=== PATIENT | female | born 1940 | race Caucasian/White ===

== ENCOUNTER → 2018-07-10 12:53 | Outpatient (CLI) | payer OTHER, SELFPAY ==
--- NOTE | 2018-07-10 13:23 | VDLE_ITS ---
Reason For Study: LEG PAIN AND SWELLING RIGHT LEFT GSV is normal. CFV is compressible, spontaneous, phasic, CFV is compressible, spontaneous, phasic, competent, and demonstrates normal competent and demonstrates normal augmentation. augmentation. FV is compressible, spontaneous, phasic, competent and demonstrates normal augmentation. POP V is compressible, spontaneous, phasic, competent and demonstrates normal augmentation. T/P Trunk is compressible. PTV is compressible. RT PerV is compressible. Procedure Exam performed in department. A preliminary report was called and/or faxed to Dr. Sriram Rutherford. Interpretation Summary Deep veins of the right lower extremity are patent and compressible segmentally. There is no evidence of right lower extremity deep vein thrombosis. Valvular competence appears intact within the proximal deep venous system on the right . The right greater saphenous vein appears patent and compressible segmentally. Ordering Physician: Ap Rutherford Referring Physician: Ap Rutherford Performed By: Denice Cisneros RVT
--- OUTSIDE RECORDS SUMMARY | 2018-08-26 08:12 | XMS RPT_ITS ---
:1940 Author Organization OH[facility] Care Team Providers Name Role Phone Ap Rutherford Attending Unavailable Rutherford, Ap Referring Unavailable Rutherford, Ap Primary Care Unavailable Rutherford, Ap Attending Unavailable Rutherford, Ap Primary Care Unavailable Rutherford, Ap Attending Unavailable Rutherford, Ap Referring Unavailable Rutherford, Ap Primary Care Unavailable PROBLEMS PROBLEMS DATE TYPE CONDITION / CODE ATTENDING STATUS SOURCE 07/29/2018 Unknown M25.561 - Pain in Rutherford, Ap Active [place] right knee / [facility] M25.561(ICD-10) Hospital Repository 07/16/2018 Unknown M25.40 - Rutherford, Ap Active [place] [facility] unspecified joint Hospital / M25.40(ICD-10) Repository PROCEDURES PROCEDURES No Procedure Records FoundRESULTS RESULTS KNEE 3 VIEWS Observed: 07/29/2018 Status: F Source: [place] 3:22 PM [facility]LY [facility], [facility]–1983 HOSPITAL REPOSITORY [facility] Imaging Services [address] [place] [address] Knee 3 Views MR#: [id number] Acct: [id number] Name: LIBAN TRACEY Rep #: [id number] : 1940 F 78 From: Javid Jordan DO PCP: Ap Rutherford MD Status: REG CLI Study: Knee 3 Views Date of Exam: 07/29/18 Exam# [id number] Ordering Dr: Ap Rutherford MD STUDY: X-RAY - RIGHT KNEE REASON FOR EXAM: Female, 78 years old. Right knee pain, chronic TECHNIQUE: 3 view(s) of the knee. COMPARISON: None. FINDINGS: Normal visualized distal femur. Normal visualized proximal tibia and fibula. Normal proximal tibiofibular articulation. 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 There is mild degenerative arthrosis of the lateral femorotibial compartment. There is mild degenerative arthrosis of the patellofemoral articulation. Significant medial compartment joint space loss The soft tissue structures are unremarkable. RAD/Knee 3 Views IMPRESSION: Degenerative changes as above Electronically Signed: Javid Jordan DO at 12:37 EST Tel , Service support , CC: Ap Rutherford MD Size Mixer: Signed CBC W/DIFF, AUTOMATED Collected: 07/16/2018 Status: F Source: [place] 4:02 PM [facility] REPOSITORY TYPE CODE TESTS RESULT OUT OF RANGE REFERENCE UNITS LAB L100.1000 4.4-11.0 K/mm3 Normal WBC 7.5 LAB L100.1200 4.2-5.4 M/mm3 Normal RBC 4.32 LAB L100.1300 12.0-15.0 g/dl Normal HGB 13.0 LAB L100.1400 37-47 % Normal HCT 40.5 LAB L100.1500 81-99 fL Normal MCV 93.8 LAB L100.1600 27.0-32.0 pg Normal MCH 30.1 LAB L100.1700 32-36 g/gl Normal MCHC 32.1 LAB L100.1810 11.6-14.6 % Normal RDW CV 13.7 LAB L100.1820 35.1-43.9 fl High RDW SD 47.3 LAB L100.1900 150-450 K/mm3 Normal PLT 258 LAB L100.2000 6.2-12.0 fl Normal MPV 10.1 LAB L100.2100 47-70 % Low NEUT% 44.0 LAB L100.2200 19-41 % High LY% 43.3 LAB L100.2300 0-10 % Normal MONO% 8.1 LAB L100.2400 0-5 % Normal EO% 4.1 LAB L100.2500 0-1 % Normal BASO% 0.5 LAB L100.2550 0.0-0.9 % Normal IM GRAN % 0.000 Result Comment: IG% - Immature Granulocytes (promyelocytes, myelocytes and metamyelocytes) > 1% indicates that a LEFT SHIFT is Present. LAB L100.2620 2.0-7.7 X10 3/uL Normal Absolute Neut 3.3 LAB L100.2720 0.83-4.51 X10 3/ul Normal Absolute Lymph 3.25 Performed By: #### L100.0100 #### [facility] [address] [place], [address] COMPREHENSIVE METABOLIC Collected: 07/16/2018 Status: F Source: [facility] 4:02 PM [facility] REPOSITORY TYPE CODE TESTS RESULT OUT OF RANGE REFERENCE UNITS LAB L501.0100 74-106 mg/dL Normal GLU 88 Result Comment: Please note revised GLUCOSE reference range effective 2017. LAB L501.1000 7-18 mg/dL High BUN 22 LAB L501.1100 0.55-1.02 mg/dL Normal CREAT,SERUM 0.86 Result Comment: The validity of the calculated GFR AND GFRAA in patients over 70 years has not been determined. Clinical correlation is essential. LAB L501.1110 >60 mL/min Normal EST GFR 68 Result Comment: Non- GFR Calc LAB L501.1115 >60 mL/min Normal EST GFR - AA 82 Result Comment: GFR Calc LAB L501.1300 10-20 RATIO High BUN/CRE 25.7 LAB L501.1500 6.4-8.2 g/dL T Normal PROT 7.6 LAB L501.1800 3.2-5.0 g/dL Normal ALB 3.9 LAB L501.1950 2.2-4.2 g/dL Normal GLOB 3.7 LAB L501.2000 0.9-2.4 RATIO Normal A/G 1.1 LAB L501.2200 8.5-10.1 mg/dL CA Normal 8.6 LAB L501.4100 15-37 U/L Normal AST 23 LAB L501.4305 45-117 U/L Normal ALK P 96 LAB L501.4405 13-56 U/L Normal ALT 35 LAB L501.4600 0.20-1.00 mg/dL T Normal BILI 0.30 LAB L501.5300 136-145 mmol/L NA Normal 144 LAB L501.5600 3.5-5.1 mmol/L K Normal 4.1 LAB L501.5900 98-107 mmol/L CL Normal 107 LAB L501.6100 21.0-32.0 mmol/L Normal CO2 28.0 LAB L501.6200 5-15 Normal GAP 9 Performed By: #### L500.4050, L501.6710, L501.9520, L503.6550, L505.7010 #### [facility] [address] [facility]. [place], [place], [id number] CRP Collected: 07/16/2018 Status: F Source: [place] 4:02 PM [facility] REPOSITORY TYPE CODE TESTS RESULT OUT OF RANGE REFERENCE UNITS LAB L501.6710 0.0-3.0 mg/L Normal < 2.90 C-REACTIVE PROT Result Comment: C-Reactive Protein (CRP) provides useful information for the diagnosis, therapy and monitoring of inflammatory processes and associated diseases. For the evaluation of Relative Risk for Cardiovascular Disease, a High Sensitivity CRP (HSCRP) should be ordered. Performed By: #### L500.4050, L501.6710, L501.9520, L503.6550, L505.7010 #### [facility] [address] [facility] [place], [place], [id number] THYROID STIM HORMONE Collected: 07/16/2018 Status: F Source: [place] (TSH) 4:02 PM [facility] REPOSITORY TYPE CODE TESTS RESULT OUT OF RANGE REFERENCE UNITS LAB L501.9520 0.358-3.74 uIU/mL High TSH 4.39 Performed By: #### L500.4050, L501.6710, L501.9520, L503.6550, L505.7010 #### [facility] [address] [facility] [place], [address] FERRITIN Collected: 07/16/2018 Status: F Source: [place] 4:02 PM [facility] REPOSITORY TYPE CODE TESTS RESULT OUT OF RANGE REFERENCE UNITS LAB L503.6550 8-252 ng/mL Normal FERRITIN 80 Performed By: #### L500.4050, L501.6710, L501.9520, L503.6550, L505.7010 #### [facility] [address] [place], [address] RHEUMATOID FACTOR Collected: 07/16/2018 Status: F Source: [place] 4:02 PM [facility] REPOSITORY TYPE CODE TESTS RESULT OUT OF RANGE REFERENCE UNITS LAB L505.7010 <15 IU/mL Normal RHEUMATOID FAC < 10.0 Performed By: #### L500.4050, L501.6710, L501.9520, L503.6550, L505.7010 #### [facility] [address] [place], [address] ANTINUCLEAR ANTIBODIES Collected: 07/16/2018 Status: F Source: [place] DIRECT 4:02 PM [facility] REPOSITORY TYPE CODE TESTS RESULT OUT OF RANGE REFERENCE UNITS LAB L3100.5475 Negative Normal Negative YEIMI-DIRECT Result Comment: Performed at: - [facility] [address] [id number] Educational Adviser: Rodri Lazo PhD, Phone: [phone] Performed By: #### L3100.5475 #### [facility] (refer to report for specific site) refer to report for address and phone number VENOUS DUPLEX LOWER Observed: 07/11/2018 Status: F Source: [place] EXTREMITY 1:47 PM [facility] REPOSITORY [facility] Cardiovascular Services [address] [place] [address] Venous Duplex US, Unilateral 07/10/18 1325 MR#: [id number] Acct: [id number] Name: LIBAN TRACEY Rep #: [id number] : 1940 78 From: Rick Lara MD Attending Dr: Ap Rutherford MD Status: REG CLI Ordering Dr: Ap Rutherford MD Date: 07/10/18 Location: [facility] Sex: F C Admitted: Reason For Study: LEG PAIN AND SWELLING RIGHT LEFT GSV is normal. CFV is compressible, spontaneous, phasic, CFV is compressible, spontaneous, phasic, competent, and demonstrates normal competent and demonstrates normal augmentation. augmentation. FV is compressible, spontaneous, phasic, competent and demonstrates normal augmentation. POP V is compressible, spontaneous, phasic, competent and demonstrates normal augmentation. T/P Trunk is compressible. PTV is compressible. RT PerV is compressible. Procedure Exam performed in department. A preliminary report was called and/or faxed to Dr. Sriram Rutherford. Interpretation Summary Deep veins of the right lower extremity are patent and compressible segmentally. There is no evidence of right lower extremity deep vein thrombosis. Valvular competence appears intact within the proximal deep venous system on the right . The right greater saphenous vein appears patent and compressible segmentally. Ordering Physician: Ap Rutherford Referring Physician: Ap Rutherford Performed By: Denice Cisneros RVT 07/11/18 1347 Date Rick Lara MD CC: Ap Rutehrford MD Date Dictated: 07/10/18 1325 Date Transcribed: 07/11/18 134 Size Mixer: Signed ALLERGIES ALLERGIES No Allergies Records FoundENCOUNTERS ENCOUNTERS ADMIT/DISCHARGE ACCOUNT ADMITTING ENCOUNTER LOCATION SOURCE NUMBER CLASS 07/29/2018 [id number] [facility] [address] [facility] ing:MTRAD Repository 07/16/[id number] ing:MFPLAB Repository 07/10/2018 [id number] Ambulatory [place] [address] [facility] ing:CVS Repository PAYERS PAYERS ENCOUNTER GUARANTOR PAYER SUBSCRIBER SOURCE 07/29/2018 DIVINA Pabon Primary LIBAN Mendoza [id number] Insurance:ANTHEM DOUGLASDOB: Community [employer] [id number]AP[place] Number: Repository [id number]: 330 [id number] [phone] (HP) Date:[id number] [address], [place] [address]ME: 07/29/2018 Secondary NOT GIVENUNK [place] Insurance:SELF PAY [facility] Number: Effective Repository Date:2018-07-29 07/16/2018 DIVINA Pabon Primary LIBAN Mendoza [id number] Insurance:HEALTH PLAN DOUGLASDOB: [id number] Number: Repository [id number]: 330 [id number] [phone] () Date: [facility], [place] [address]LQ: 07/16/2018 Secondary NOT GIVENUNK [place] Insurance:SELF PAY [facility] Number: Effective Repository Date:2018-07-16 07/10/2018 DIVINA Pabon Primary LIBAN Mendoza [id number] Insurance:HEALTH PLAN DOUGLASDOB: [id number] Number: Repository [id number]: 330 [id number] [phone] () Date: [place], [place] [address]LW: 07/10/2018 Secondary NOT GIVENUNK [place] Insurance:SELF PAY [facility] Number: Effective Repository Date:2018-07-10
== END ==
PROVIDERS: Family Provider Family Medicine; PCP Family Medicine; Referring Provider Family Medicine; Visit Provider Family Medicine
DX: M79.604 Pain in right leg (principal)
CPT/HCPCS: 93971

== ENCOUNTER → 2018-07-16 16:00 | Outpatient (CLI) | payer OTHER, SELFPAY ==
[2018-07-16 17:28] LABS: Absolute Lymphocyte Count 3.25 X10^3/ul (0.83-4.51); Absolute Neutrophil Count 3.3 X10^3/uL (2.0-7.7); Basophil# 0.04 X10^3/uL; Basophil% 0.5 % (0-1); Eosinophil# 0.31 X10^3/uL; Eosinophils% 4.1 % (0-5); Hematocrit 40.5 % (37-47); Lymphocyte # 3.25 X10^3/ul (4.0); Lymphocyte % 43.3 % (19-41); Mean Corp Hgb Conc 32.1 g/gl (32-36); Mean Corpuscular Hgb 30.1 pg (27.0-32.0); Mean Corpuscular Volume 93.8 fL (81-99); Mean Platelet Vol. 10.1 fl (6.2-12.0); Monocyte# 0.61 X10^3/uL; Monocyte% 8.1 % (0-10); Neutrophil # 3.29 X10^3/uL (2.7-7.7); Platelet Count 258 K/mm3 (150-450); RBC Distribution Width CV 13.7 % (11.6-14.6); RBC Distribution Width SD 47.3 fl (35.1-43.9); Red Blood Count 4.32 M/mm3 (4.2-5.4); White Blood Count 7.5 K/mm3 (4.4-11.0)
[2018-07-16 17:31] LABS: POSITIVE COUNT NO; POSITIVE DIFFERENTIAL NO; POSITIVE MORPHOLOGY NO
[2018-07-16 17:54] LABS: ALB/GLOB Ratio 1.1 RATIO (0.9-2.4); AST(SGOT) 23 U/L (15-37); Alanine Aminotransfer ALT/SGPT 35 U/L (13-56); Albumin, Serum 3.9 g/dL (3.2-5.0); Alkaline Phosphatase 96 U/L (45-117); Anion Gap 9 (5-15); BUN 22 mg/dL (7-18); BUN/Creat Ratio 25.7 RATIO (10-20); CRP < 2.90 mg/L (0.0-3.0); Calcium,Total 8.6 mg/dL (8.5-10.1); Chloride 107 mmol/L (98-107); Creatinine, Serum 0.86 mg/dL (0.55-1.02); EST Glomerular Filtration Rate 68 mL/min (>60); Est Glom Filt Rate - Afr Amer 82 mL/min (>60); Ferritin 80 ng/mL (8-252); Globulin 3.7 g/dL (2.2-4.2); Glucose 88 mg/dL (74-106); Potassium 4.1 mmol/L (3.5-5.1); Protein, Total 7.6 g/dL (6.4-8.2); Rheumatoid Factor < 10.0 IU/mL (<15); Sodium Level 144 mmol/L (136-145); Thyroid Stim Hormone (TSH) 4.39 uIU/mL (0.358-3.74)
[2018-07-20 12:38] LABS: ANTINUCLEAR ANTIBODIES DIRECT Negative (Negative)
== END ==
PROVIDERS: Family Provider Family Medicine; PCP Family Medicine; Visit Provider Family Medicine
DX: M25.40 Effusion, unspecified joint (principal)
CPT/HCPCS: 36415; 80053; 82728; 84443; 85025; 86038; 86140; 86431

== ENCOUNTER → 2018-07-29 15:17 | Outpatient (CLI) | payer MEDICARE, SELFPAY ==
--- NOTE | 2018-07-29 15:25 | RAD_ITS ---
STUDY: X-RAY - RIGHT KNEE REASON FOR EXAM: Female, 78 years old. Right knee pain, chronic TECHNIQUE: 3 view(s) of the knee. COMPARISON: None. FINDINGS: Normal visualized distal femur. Normal visualized proximal tibia and fibula. Normal proximal tibiofibular articulation. 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 There is mild degenerative arthrosis of the lateral femorotibial compartment. There is mild degenerative arthrosis of the patellofemoral articulation. Significant medial compartment joint space loss The soft tissue structures are unremarkable. RAD/Knee 3 Views IMPRESSION: Degenerative changes as above Electronically Signed: Javid Jordan DO at 12:37 EST Tel , Service support ,
== END ==
PROVIDERS: Family Provider Family Medicine; PCP Family Medicine; Referring Provider Family Medicine; Visit Provider Family Medicine
DX: M25.561 Pain in right knee (principal)
CPT/HCPCS: 73562

== ENCOUNTER → 2020-12-14 12:50 | Outpatient (CLI) | payer MEDICARE, SELFPAY ==
[2020-12-14 13:25] LABS: CREATININE FINGERSTICK 0.8 mg/dL (0.55-1.02); EGFR FINGERSTICK > 60.0000 mL/min (>60)
--- NOTE | 2020-12-14 13:25 | CT_ITS ---
STUDY: CT BRAIN WITH AND WITHOUT CONTRAST REASON FOR EXAM: Female, 80 years old. Mental status change RADIATION DOSAGE (If Supplied By Facility): CTDIvol = ( 44.99 ) mGy, DLP = ( 1479.73 ) mGycm TECHNIQUE: Transaxial CT imaging of the brain was performed pre and post contrast administration. The examination was performed with intravenous administration of 50ML OF ISOVUE 370. Individualized dose optimization techniques were used for this CT. COMPARISON: None. FINDINGS: Normal soft tissue structures. Normal calvarium. Normal size ventricles and extra-axial spaces for the patient''s age. There are areas of decreased attenuation within the white matter tracts of the supratentorial brain, consistent with microvascular disease changes. Normal basal ganglia and thalami. Normal brainstem. Normal cerebellum. There is no intracranial hemorrhage. There are no findings of an acute ischemic infarction. Normal visualized paranasal sinuses. No suspicious enhancing lesion. CT/Brain/Head W/WO Contrast IMPRESSION: Chronic involutional changes of the brain. No acute hemorrhage No suspicious enhancing lesion. Electronically Signed: Rolo Murillo MD at 13:38 EDT , Service support ,
--- NOTE | 2020-12-14 13:33 | ECHOD_ITS ---
Reason For Study: CVA Procedure This was a 2D Doppler, Color Flow transthoracic echocardiogram. Exam performed in department. Left Ventricle Normal LV size. The estimated ejection fraction is 60 %. Unable to assess diastolic dysfunction. No regional wall motion abnormalities noted. Right Ventricle Normal RV size. Normal systolic function. Atria The left atrium is mildly enlarged. Normal right atrium. Bubble contrast study negative for right to left interatrial shunt. No doppler evidence for ASD. Mitral Valve Mitral valve doming/Hockey Sticking. Severe mitral valve stenosis. Mild (1+) mitral valve insufficiency. Tricuspid Valve There is no tricuspid stenosis. Trivial tricuspid valve insufficiency. Pulmonary artery systolic pressure is 45 mmHg. Aortic Valve Trisinus/trileaflet aortic valve. There is no aortic stenosis. No aortic valve insufficiency. Pulmonic Valve There is no pulmonic valvular stenosis. Trivial pulmonic valve insufficiency. Great Vessels Calcified aortic root. Pericardium/Pleural No pericardial effusion. Medication Performed a rapid injection of agitated mix of 9 cc saline and 1cc air to assess for atrial septal defect. MMode/2D Measurements & Calculations LVIDd: 3.7 cm IVSd: 0.84 cm Ao root diam: 2.9 cm LVIDs: 2.4 cm LVPWd: 0.71 cm RVDd: 3.1 cm FS: 34.3 % LAV(MOD-bp): 68.5 ml LA A4 area: 22.0 cm2 LA dimension(2D): 3.6 cm LAV(MOD-bp) Indexed: 38.6 ml/m2 LAV(MOD-sp2): 62.0 ml LAV(MOD-sp4): 69.7 ml RA A4 area: 11.3 cm2 Time Measurements MV dec time: 0.29 sec Doppler Measurements & Calculations MV E max marco a: 184.0 cm/sec Lat Peak E' Marco A: 7.3 cm/sec Med Peak E' Marco A: 5.9 cm/sec MV A max amrco a: 211.4 cm/sec E/E' lat: 25.2 E/E' med: 31.0 MV E/A: 0.87 MV V2 max: 232.3 cm/sec Ao V2 max: 128.3 cm/sec LV V1 max: 112.7 cm/sec MV max P.6 mmHg Ao max P.6 mmHg LV V1 max P.1 mmHg MV V2 mean: 170.9 cm/sec Ao V2 mean: 86.3 cm/sec LV V1 mean P.5 mmHg MV mean P.6 mmHg Ao mean P.3 mmHg LV V1 mean: 75.0 cm/sec MV V2 VTI: 55.9 cm Ao V2 VTI: 26.7 cm LV V1 VTI: 24.3 cm PA V2 max: 80.3 cm/sec TR max marco a: 313.7 cm/sec TR max P.4 mmHg ECHO/Echo Complete Interpretation Summary The estimated ejection fraction is 60 %. Severe mitral valve stenosis. Unable to assess diastolic dysfunction. The left atrium is mildly enlarged. Ordering Physician: Daniella Moise Referring Physician: Ap Rutherford Performed By: Roselia Pagan, RONI, RVT
--- NOTE | 2020-12-14 13:33 | CDU_ITS ---
Reason For Study: CVA Rt. Velocities/BP Lt. Velocities/BP Prox CCA 72.1/12.1 cm/sec. Prox CCA 94.8/16.8 cm/sec. Mid CCA 70.8/13.4 cm/sec. Mid CCA 65.1/13.5 cm/sec. Dist CCA 60.4/13.4 cm/sec. Dist CCA 70.6/13.5 cm/sec. Prox ICA 54.1/14.5 cm/sec. Prox ICA 58.9/17.3 cm/sec. Mid ICA 75.9/22 cm/sec. Mid ICA 52.2/19.2 cm/sec. Dist ICA 79.6/23 cm/sec. Dist ICA 70.2/22 cm/sec. Rt. ICA/CCA = 1.12. Lt. ICA/CCA = 1.08. Prox ECA 53.2/6.9 cm/sec. Prox ECA 94.8/8 cm/sec. Rt. Vert. 41.3/11.6 cm/sec. Lt. Vert. 36.5/13 cm/sec. Right Extracranial There is homogeneous, smooth atherosclerotic plaque noted in the right common carotid artery. There is homogeneous, smooth atherosclerotic plaque noted in the right internal carotid artery. There is intimal thickening but no significant atherosclerotic plaque noted in the right external carotid artery. Antegrade flow is noted in the right vertebral artery. Left Extracranial There is intimal thickening but no significant atherosclerotic plaque noted in the left common carotid artery. There is intimal thickening but no significant atherosclerotic plaque noted in the left internal carotid artery. There is intimal thickening but no significant atherosclerotic plaque noted in the left external carotid artery. Antegrade flow is noted in the left vertebral artery. Procedure Carotid Duplex [id number]. This is a Carotid Duplex examination using B-mode, color flow and specral Doppler. Exam performed in department. VL/Carotid Duplex Ultrasound Interpretation Summary Smooth plaque at the proximal right internal carotid artery with less than 50% stenosis Less than 50% stenosis right external carotid artery Intimal thickening at the proximal left internal carotid artery with less than 50% stenosis Less than 50% stenosis left external carotid artery patent and antegrade vertebrals bilaterally Ordering Physician: Daniella Moise Referring Physician: Ap Rutherford MD Performed By: Aleja Philippe RVT
== END ==
PROVIDERS: PCP Family Medicine; Visit Provider Family Medicine
DX: I63.89 Other cerebral infarction (principal)
CPT/HCPCS: 70470; 93306; 93880; Q9967; A4216

== ENCOUNTER → 2021-12-31 | Outpatient (CLI) | payer MEDICARE, SELFPAY | END | disposition home or self-care (01) | LOC: MFPLAB 15:50 | PROVIDERS: PCP Family Medicine; Visit Provider Nurse Practitioner Family | DX: R31.9 Hematuria, unspecified (principal) | CPT/HCPCS: 87077; 87086; 87088; 87186 ==

== ENCOUNTER 2022-01-24 11:00 | Outpatient (RCR) | payer MEDICARE, SELFPAY ==
--- NOTE | 2021-12-18 12:50 | HP.PTEVAL ---
Patient's Visit Information LIBAN TRACEY is a 81 year old F referred to Physical Therapy by Dr. Seven Parks MD with a diagnosis of L KNEE UNIL OA, STIFFNESS AND EFFUSION. Date of Evaluation: 12/18/21 Physical Therapist: Gloria Cook PT, Cert MDT - Visit Plan Frequency: 2x /Week Duration: 4 Weeks Plan: AQUATIC THERAPY 2X'S A WEEK X 4 WKS FOR L LE ROM, STRETCHING AND STRENGTHENING. - Subjective Work/Leisure: RETIRED. Present symptoms: MEDIAL L KNEE PAIN. IT DOES NOT HURT ON TOP. DENIES NUMBNESS AND TINGLING. SOMETIMES R HIP PAIN AND CENTRAL LBP. Present since: L KNEE PAIN ABOUT 4 YEARS. Pain Scale: WORST 7/10, LEAST 0/10. Currently: 0/10. Commenced as a result of: ARTHRITIS. Symptoms at onset: L KNEE PAIN. Worse: WALKING ON CEMENT AND GROCERY SHOPPING. Better: SITTING AND LYING DOWN. Disturbed sleep: NO. Previous history/Previous treatment: 41 YEARS AGO ARTHROSCOPIC TENDON RELEASE 1980. NO INJECTIONS. Gait: NO AD'S. TIME AND DISTANCE LIMITED DUE TO L KNEE PAIN. Bowel or Bladder Dysfunction: NO. Accidents: NO. Unexplained weight loss: NO. Imaging: RECENT L KNEE X-RAY AT [facility]. PMH/Recent major surgery: NOVEMBER 2020 DX'D WITH CVA BUT PATIENT DISAGREES. STEM CELL THERAPY R KNEE ABOUT A YEAR AGO WITH BENEFIT. OTHER: PATIENT REPORTS SURGERY IS RECOMMENDED BUT SHE HAS NOT SCHEDULED IT. SHE REPORTS SHE IS GOING TO FOLLOW UP WITH DR. PARKS IN A MONTH. OTHER: [facility]. EXPRESSING CONCERN ABOUT BEING ABLE TO AFFORD CO-PAYS. HAS RAMP HoldingsEAKERS. - Objective THIS PATIENT AMBULATES INDEP'LY INTO PT WITHOUT ANY AD'S OR LOB LIMPING ON CASEY LE'S. DECREASED CASEY STRIDE LENGTH. NO LOB. DECREASED L KNEE FLEXION DURING SWING PHASE - WALKS WITH STIFF KNEE. LEFT KNEE AROM IN SUPINE = FULL EXTENSION TO 50 DEG FLEXION. STRENGTH: L HIP 4-/5, KNEE EXT 2+/5, KNEE FLEX 2+/5, ANKLE 5/5. SENSATION LLE GROSSLY INTACT. MODERATE L KNEE EDEMA. MILD MEDIAL KNEE TENDERNESS. - Balance/Special Test Scores Lower Extremity Functional Score: 25 - Goals Goal 1:: INCREASE LEFT KNEE ROM TO 65 DEG FLEX TO EASE ADL'S Goal Time Frame: 4-6 Weeks Goal 2:: INCREASE LEFT HIP STRENGTH TO 4/5 AND KNEE TO 3-/5 TO EASE ADL'S Goal Time Frame: 4-6 Weeks Goal 3:: PATIENT WILL BE INDEP WITH A WATER EX PROGRAM FOR CONTINUED IMPROVEMENT ONCE FORMAL PHYSICAL THERAPY CONCLUDES. Goal Time Frame: 4-6 Weeks - Anticipated Interventions Patient/Client Instruction: Educate patient on: Condition, Plan of Care, Risk Factors For the Purpose of:: To improve self management Therapeutic Exercise to Include: Strength training, Flexibilty training, Gait and locomotor training, Neuromotor development, In an aquatic setting For the Purpose of:: To decrease pain, To increase ROM, To improve muscle performance and motor function, To increase tolerance to activity/condition/position, To improve ability of physical actions for home/community/work/leisure, To improve gait and locomotor functions Thank you for the opportunity to evaluate your patient. For Medicare and Medicare HMO plans, please review the plan of care and approve it. It will need to be FAXED BACK to us at [phone] for Medicare purposes. For Medicare only, by signing this I certify the plan of care. Please let me know if there are questions or concerns regarding this plan of care. Physician Signature: Date:
--- NOTE | 2022-01-24 11:31 | HP.PTDCSUM_ITS ---
It has been my pleasure to treat LIBAN TRACEY referred by Dr. Seven Parks MD, with the diagnosis of L KNEE UNIL OA, STIFFNESS AND EFFUSION for a total of 7 visit(s). Discharge Date: Please see the following information for a summary of their discharge status. Subjective: PATIENT REPORTS SHE CAN WALK MUCH BETTER AFTER SITTING BUT SHE GETS UP OFTEN. REPORTS SHE IS GOING TO TRY TO COME A COUPLE TIMES A WK ON HER OWN TO DO THE POOL EX'S BETWEEN NOW AND SURGERY. LLE Pain Intensity (Out of 10): 0 % Improvement: 50 Objective/Function: PATIENT WAS SEEN TODAY FOR RE-ASSESSMENT OF PROGRESS TOWARD THE SET PT GOALS AND THE NEED FOR FURTHER PHYSICAL THERAPY VS READINESS FOR D ISCHARGE. UPON EXAM TODAY: THIS PATIENT AMBULATES INDEP'LY INTO PT WITHOUT ANY AD'S BUT LIMPING ON CASEY LE'S. DECREASED CASEY STRIDE LENGTH. NO LOB. DECREASED L KNEE FLEXION DURING SWING PHASE - WALKS WITH STIFF KNEE. LEFT KNEE AROM IN SUPINE = FULL EXTENSION TO 50 DEG FLEXION. STRENGTH: L HIP 4-/5, KNEE EXT 2+/5, KNEE FLEX 2+/5, ANKLE 5/5. SENSATION LLE GROSSLY INTACT. MODERATE L KNEE EDEMA. MILD MEDIAL KNEE TENDERNESS. INSTRUCTED PATIENT IN USE OF WALKER ON LEVEL SURFACES AND VERBAL INSTRUCTION FOR PROPER SEQUENCING ON STEPS WITH STEP TO PATTERN. ALSO INSTRUCTED PATIENT IN APPROX 10 REPS, 3 TIMES A DAY OF GS'S, QS'S, HEEL SLIDES AND AP'S TOLERATED WITHOUT INCREASING PAIN. PATIENT DEMONSTRATED/COMMUNICATED A GOOD UNDERSTANDING OF ALL INSTRUCTIONS AFTER GIVEN. Goal 1:: INCREASE LEFT KNEE ROM TO 65 DEG FLEX TO EASE ADL'S Goal Progress: Not Progressing Goal 2:: INCREASE LEFT HIP STRENGTH TO 4/5 AND KNEE TO 3-/5 TO EASE ADL'S Goal Progress: Not Progressing Goal 3:: PATIENT WILL BE INDEP WITH A WATER EX PROGRAM FOR CONTINUED IMPROVEMENT ONCE FORMAL PHYSICAL THERAPY CONCLUDES. Goal Progress: Goal Met Plan: D/C TO INDEP EX FOR L TKR 02/12/22. PATIENT AGREEABLE. If there are questions or concerns regarding this patient's physical therapy, please feel free to call me at [phone]. Thank you for the referral of this patient. Sincerely, Gloria Cook, PT, Cert MDT Balance/Gait/Functional tests - Balance/Special Test Scores Lower Extremity Functional Score: 28
== END 2022-01-24 13:36 | disposition home or self-care (01) ==
LOC: PT 11:00
PROVIDERS: PCP Family Medicine; Referring Provider Specialist; Visit Provider Specialist
DX: M17.12 Unilateral primary osteoarthritis, left knee (principal); M25.662 Stiffness of left knee, not elsewhere classified; M25.462 Effusion, left knee
CPT/HCPCS: 97113; 97162; 97164

== ENCOUNTER → 2022-12-20 | Outpatient (CLI) | payer MEDICARE, SELFPAY | END | disposition home or self-care (01) | LOC: LABSPEC 10:30 | PROVIDERS: PCP Family Medicine; Referring Provider Family Medicine; Visit Provider Family Medicine | DX: R30.0 Dysuria (principal) | CPT/HCPCS: 87086; 87088 ==

== ENCOUNTER 2023-06-06 18:26 | Inpatient (IN) | payer MEDICARE, SELFPAY ==
--- NOTE | 2023-06-06 18:28 | ED.RN ---
SON SHAKING HIS HEAD, HUFFING AND PUFFING BECAUSE PT HAD TO COME TO TRIAGE.
[2023-06-06 18:29] VITALS: BP 160/79; PULSE 73; RESP 14; TEMP 37.2; O2SAT 100
[2023-06-06 18:32] VITALS: BMI 32.1
[2023-06-06 18:57] VITALS: BP 147/73; PULSE 83; RESP 16; O2SAT 96
[2023-06-06 19:48] LABS: Absolute Lymphocyte Count 1.18 X10^3/uL (0.83-4.51); Absolute Neutrophil Count 11.8 X10^3/uL (2.0-7.7); Basophil# 0.06 X10^3/uL; Basophil% 0.5 % (0-1); Eosinophil# 0.01 X10^3/uL; Eosinophils% 0.1 % (0-5); Hematocrit 40.6 % (37-47); Hemoglobin 12.9 g/dL (12.0-15.0); Lymphocyte # 1.18 X10^3/ul (0.83-4.51); Lymphocyte % 8.9 % (19-41); Mean Corp Hgb Conc 31.8 g/dL (32-36); Mean Corpuscular Hgb 30.2 pg (27.0-32.0); Mean Corpuscular Volume 95.1 fL (81-99); Mean Platelet Vol. 10.2 fl (6.2-12.0); Monocyte# 0.26 X10^3/uL; NRBC Flagged by Analyzer 0 % (0-5); Neutrophil # 11.77 X10^3/uL (2.7-7.7); Neutrophil % 88.1 % (47-70); Platelet Count 254 K/mm3 (150-450); RBC Distribution Width CV 12.9 % (11.6-14.6); RBC Distribution Width SD 44.9 fl (35.1-43.9); Red Blood Count 4.27 M/mm3 (4.2-5.4); White Blood Count 13.3 K/mm3 (4.4-11.0)
--- NOTE | 2023-06-06 20:11 | EX.ED.DYSGE1 ---
HPI History of Present Illness Chief Complaint: Nausea/Vomiting Informant: patient and family Onset/Context/Timing Onset: Today Context: Gradual Onset Timing: Continuous Quality: Aching, off balance Location: Frontal head Worsened by: Movement and ambulation Relieved by: Nothing Narrative Narrative: Patient presents with nausea, vomiting, headache, and off-balance feeling that began today. Son states that the patient called him and was having some dizziness and difficulty ambulating. Son states the patient told him that she did not feel right. Son states that when he got there she was having some nausea and vomiting and had difficulty ambulating. Son states the patient kept falling to the left. Patient states she feels like she was off balance and felt like she could pass out. Patient describes her headache as aching. Patient states it is mainly over the frontal area. Patient denies any hematemesis or coffee-ground emesis. Patient had 1 episode of loose diarrhea today. Patient denies any melena or hematochezia. Patient admits to some subjective chills but denies any fevers. [facility] Medical History CVA (cerebral vascular accident) History of basal cell carcinoma History of rheumatic fever History of TIA (transient ischemic attack) (12/05/20) Osteoarthritis Secondary pulmonary arterial hypertension Home Medications aspirin 81 mg tablet,delayed release (Adult Aspirin Regimen) 81 mg PO DAILY 01/24/21 [History Last Taken Unknown] Allergy/AdvReac Type Severity Reaction Status Date / Time No Known Allergies Allergy Verified 06/06/23 18:28 Surgical History H/O arthroscopic knee surgery History of carpal tunnel release Social History Smoking Status: Never smoker alcohol intake: never substance use type: does not use ROS ROS ED Constitutional Constitutional ED: Reports chills and subjective; Denies fever(s) Eyes Eyes: Denies diplopia ENT ENT ED: Denies rhinorrhea or sore throat Cardiovascular Cardiovascular: Denies chest pain or palpitations Respiratory/Chest Respiratory/Chest: Denies cough or dyspnea Gastrointestinal Gastrointestinal: Reports diarrhea, nausea and vomiting Genitourinary Genitourinary ED: Denies dysuria or hematuria Musculoskeletal Musculoskeletal: Reports neck pain; Denies back pain Integumentary Denies abscess or rash Neurologic Neurologic: Reports headache(s); Denies weakness Allergic/Immunologic Allergic/Immunologic ED: Denies mouth swelling or urticaria EXAM Physical Exam Const Vital Signs: 06/06/23 18:29 06/06/23 18:57 06/06/23 21:00 Temperature 99 F Temperature Source Temporal Pulse Rate 73 83 89 Respiratory Rate 14 16 16 Blood Pressure 160/79 H 147/73 H 150/76 H Blood Pressure Mean 106 97 100 Pulse Ox 100 96 95 Oxygen Delivery Method Room Air Room Air Room Air 06/06/23 23:00 Temperature Temperature Source Pulse Rate 70 Respiratory Rate 16 Blood Pressure 136/56 H Blood Pressure Mean 82 Pulse Ox 97 Oxygen Delivery Method Room Air Positive well nourished and well developed General Appearance ED: well developed and NAD HEENT Reports moist mucous membranes Eyes PERRL and EOMs intact bilaterally Eyes Narrative: There is nystagmus with left lateral gaze. Neck supple and no JVD Resp normal respiratory effort and clear to auscultation bilaterally Cardio regular rate and regular rhythm GI non-tender and non-distended Palpation: soft Extremity normal to inspection Neuro oriented x3, CN's II-XII intact bilaterally and no sensory deficits noted Sensorium / Orientation: alert Motor Exam: strength 5/5 throughout Psych mental status grossly normal MDM MDM MDM Narrative Medical decision making narrative: Differential diagnosis includes stroke, vertigo, labyrinthitis, intracranial bleeding, electrolyte abnormality, viral infection, gastroenteritis, anemia, and sinusitis. CT scan of the brain will be obtained to assess for intracranial bleeding and stroke. CBC will be obtained to assess for leukocytosis and anemia. Comprehensive metabolic profile will be obtained to assess for hepatic function, renal function, and electrolyte abnormality. Urinalysis will be obtained to assess for urinary tract infection. Lab Data Attestation: I reviewed the patient's lab results. Lab results narrative: CBC was reviewed. There is a slight leukocytosis of 13.3. The remainder is within normal limits. Comprehensive metabolic profile was reviewed and was essentially within normal limits. Urinalysis was reviewed. There is no evidence of urinary tract infection or hematuria. Labs: Laboratory Results - last 24 hr 06/06/23 06/06/23 19:35 20:51 WBC 13.3 H RBC 4.27 Hgb 12.9 Hct 40.6 MCV 95.1 MCH 30.2 MCHC 31.8 L RDW Std Deviation 44.9 H RDW Coeff of Alfredo 12.9 Plt Count 254 MPV 10.2 Immature Gran % (Auto) 0.400 Neut % (Auto) 88.1 H Lymph % (Auto) 8.9 L [place] % (Auto) 2.0 Eos % (Auto) 0.1 Baso % (Auto) 0.5 Absolute Neuts (auto) 11.8 H Absolute Lymphs (auto) 1.18 Nucleated RBC % 0 Sodium 138 Potassium 4.0 Chloride 105 Carbon Dioxide 27.0 Anion Gap 6 BUN 22 H Creatinine 1.03 H Est GFR (MDRD) Af Amer 66 Est GFR (MDRD) Non-Af 54 L BUN/Creatinine Ratio 21.4 H Glucose 146 H Calcium 9.1 Total Bilirubin 0.40 AST 16 ALT 15 Alkaline Phosphatase 90 Total Protein 7.5 Albumin 3.9 Globulin 3.6 Albumin/Globulin Ratio 1.1 Urine Color Yellow Urine Clarity Sl. Cloudy Urine pH 7.0 Ur Specific [place] 1.010 Urine Protein 15 H Urine Glucose (UA) Normal Urine Ketones 50 H Urine Occult Blood Negative Urine Nitrite Negative Urine Bilirubin Negative Urine Urobilinogen Normal Ur Leukocyte Esterase 25 H Urine RBC 0 SEEN Urine WBC 0-5 SEEN Ur Squamous Epith Cells 0-5 SEEN Urine Bacteria 1+ Urine Mucus 0 SEEN Radiography Diagnostic Testing: Clinical Impression(s) from Imaging Studies Brain CT 06/06/23 20:24 IMPRESSION: 1. Mild involutional change and focal area of diminished density and loss of francis-white differentiation the RIGHT inferior frontal gyrus. Area of encephalomalacic in potential surrounding subacute ischemic changes are present. No evidence however of mass, hemorrhage, or acute territorial infarct. 2. No radiographically significant sinus disease.. Electronically Signed: Reid Garcia MD at 20:55 EST , CT scan of the brain was obtained. There is an area of diminished density and loss of francis-white differentiation in the right inferior frontal gyrus. No evidence of acute infarct, mass, or hemorrhage. This was interpreted by the radiologist and was also independently reviewed by myself. Management Discussion w/another healthcare provider: Hospitalist Treatment and Re-Evaluation :: Patient was given IV fluids and Zofran here. Patient was given a dose of Valium. Patient was feeling better on reevaluation. Patient was advised of her findings. Family states that the patient did have a stroke in the recent past. This would likely account for the CT findings. Patient tempted to ambulate here in the emergency department. Patient was unable to take more than 1 or 2 steps. Patient states she still felt like she was falling to the left. Patient was still complaining of a headache. Patient was given a dose of morphine for this. Case will be discussed with the hospitalist for admission. Admit the patient for observation. Patient and family understood and were agreeable with the plan. All questions were answered. Discharge Plan Dx/Rx/DC Orders Clinical Impression: Dizziness, Inability to walk Disposition Disposition: Acute Care Hospital [facility]
[2023-06-06 20:14] VITALS: BMI 30.9
[2023-06-06 20:14] LABS: ALB/GLOB Ratio 1.1 RATIO (0.9-2.4); AST(SGOT) 16 U/L (15-37); Alanine Aminotransfer ALT/SGPT 15 U/L (13-56); Albumin, Serum 3.9 g/dL (3.2-5.0); Alkaline Phosphatase 90 U/L (45-117); Anion Gap 6 (5-15); BUN 22 mg/dL (7-18); BUN/Creat Ratio 21.4 RATIO (10-20); Calcium,Total 9.1 mg/dL (8.5-10.1); Chloride 105 mmol/L (98-107); Creatinine, Serum 1.03 mg/dL (0.55-1.02); EST Glomerular Filtration Rate 54 mL/min (>60); Est Glom Filt Rate - Afr Amer 66 mL/min (>60); Globulin 3.6 g/dL (2.2-4.2); Glucose 146 mg/dL (74-106); Protein, Total 7.5 g/dL (6.4-8.2); Sodium Level 138 mmol/L (136-145)
[2023-06-06] MEDS: 0.9% Normal Saline (1000mL) 1,000 ML 1000 ML IV (20:23)
[2023-06-06] MEDS: Ondansetron 4 MG/2 ML Vial IV (20:23)
--- NOTE | 2023-06-06 20:24 | CT_ITS ---
INDICATION: Stroke EXAMINATION: CT BRAIN - CT Head or Brain W/O Contrast Injection TECHNIQUE: Multiple axial images were obtained of the head without intravenous contrast. A radiation dose optimization technique was used for this scan. IV Contrast dosage and agent: None. RADIATION DOSAGE (If Supplied By Facility): CTDIvol = ( 44.99 ) mGy, DLP = ( 745.49 ) mGycm COMPARISON: CT of 12/14/2020 FINDINGS: HEMISPHERES: 1. The cerebral parenchyma, ventricular system and gyral pattern abnormal configuration. Mild involutional changes are noted. 2. There is an area of mild volume loss and loss of francis-white differentiation involving the RIGHT inferior frontal gyrus. Findings likely represent sequelae of remote ischemia evidence of encephalomalacic changes. Mild surrounding subacute ischemia is a consideration however. No hemorrhage noted.. 3. The hemispheric white matter has normal appearance. 4. The remaining hemispheric parenchyma has normal appearance. CEREBELLUM - BRAINSTEM: The cerebellum, brainstem, basilar and suprasellar cisterns have normal appearance. No Chiari malformation. PITUITARY: Infundibulum and pituitary have normal configuration. Midline structures appear normal. CSF SPACES: Appropriate for age. No hydrocephalus. Basal cisterns are patent. VESSELS: 1. Diffuse vascular calcifications involving the cavernous carotid vessels bilaterally. 2. No hyperdense vascular signs noted.. ORBITS AND PARANASAL SINUSES: 1. Normal appearance of the bony orbits. Normal appearance of the globes and retrobulbar soft tissues.. 2. Paranasal sinuses are clear. BONY ELEMENTS: Bony elements of the cranial vault, facial skeleton and skull base have normal appearance. SCALP AND SOFT TISSUES: Normal appearance of the soft tissues of the scalp and the visualized face OTHER: None ASPECTS Score for Acute Strokes: 10 CT/Brain/Head without Contrast IMPRESSION: 1. Mild involutional change and focal area of diminished density and loss of francis-white differentiation the RIGHT inferior frontal gyrus. Area of encephalomalacic in potential surrounding subacute ischemic changes are present. No evidence however of mass, hemorrhage, or acute territorial infarct. 2. No radiographically significant sinus disease.. Electronically Signed: Reid Garcia MD at 20:55 EST ,
[2023-06-06 20:58] LABS: Mucous, Urine 0 SEEN /hpf (<or=2+); Red Blood Cells-Urine 0 SEEN /hpf (0-5)
[2023-06-06 21:00] VITALS: BP 150/76; PULSE 89; RESP 16; O2SAT 95
[2023-06-06] MEDS: diazePAM 5 MG Tablet 2.5 MG PO (21:11)
[2023-06-06 21:16] LABS: Color, Urine Yellow (Yellow); Glucose, Dipstick Normal (Normal); Ketone-Dipstick 50 mg/dl (Negative); Leukocyte Esterase-Dipstick 25 /ul (Negative); Nitrite-Dipstick Negative (Negative); Occult Blood-Urine Negative /ul (Negative); Protein-Dipstick 15 mg/dl (Negative); Urine Bilirubin Dipstick Negative (Negative); Urine Clarity Sl. Cloudy (Clear); Urine Urobilinogen Normal (Normal)
[2023-06-06 21:26] LABS: Bacteria 1+ /hpf (None Seen); Squamous Epithelial Cells - UA 0-5 SEEN /hpf (5-10); White Blood Cells 0-5 SEEN /hpf (0-5)
[2023-06-06 23:00] VITALS: BP 136/56; PULSE 70; RESP 16; O2SAT 97
[2023-06-06] MEDS: Meclizine HCl 25 MG Tablet PO (23:55)
--- NOTE | 2023-06-06 23:59 | PCM.HP.STD ---
HPI - General General Date of Admission: 06/07/23 Date of Service: 06/06/23 Chief Complaint: Nausea and vomiting with falls to the left HPI Narrative LIBAN TRACEY, is a 83 F with a past medical history of CVA, history of TIA in November 2010, history of rheumatic fever, secondary pulmonary arterial hypertension, osteoarthritis; with history of arthroscopic knee surgery, history of basal cell carcinoma, history of osteoarthritis and history of suspected CVA approximately 1 year ago after taking medications to prepare for cataract surgery when she woke up in the morning transiently unable to speak who presents to [facility] ER complaining of nausea and vomiting with falls to the left. Ms. Tracey reports her symptoms began about 1 day prior to admission with a acute onset of nausea followed by bilious emesis with headache and a feeling of poor balance. She then called her son and when he arrived he also noted that she was have difficulty walking with a tendency to fall to the left. She admits she felt like she was going to pass out completely. She admits to subjective chills but denies fevers. She describes her headache as a tension-type aching feeling over the frontal area of her head. She also admits to 1 episode of loose stools today but she denies hematemesis or coffee-ground emesis. She also denies melena or hematochezia. In the ER she was noted to have a CT scan of the head that was negative for acute pathologic changes. However, the ER physician was concerned for possible acute neurologic insult so she was then admitted to the CDU under observation status for a TIA versus CVA work-up for a stay that is expected to be less than 48 hours. [facility] Medical History CVA (cerebral vascular accident) History of basal cell carcinoma History of rheumatic fever History of TIA (transient ischemic attack) (12/05/20) Osteoarthritis Secondary pulmonary arterial hypertension Home Medications aspirin 81 mg tablet,delayed release (Adult Aspirin Regimen) 81 mg PO DAILY 01/24/21 [History Last Taken Unknown] Allergy/AdvReac Type Severity Reaction Status Date / Time No Known Allergies Allergy Verified 06/06/23 18:28 Surgical History H/O arthroscopic knee surgery History of carpal tunnel release Social History Smoking Status: Never smoker alcohol intake: never substance use type: does not use ROS ROS Narrative Review of systems: Constitutional: Patient admits to chills but denies fever Eyes: Patient denies visual changes ENT: Patient denies runny nose or sore throat Cardiovascular: Patient denies chest pain or palpitations but she does admit to near syncope Respiratory: Patient denies shortness of breath or cough Gastrointestinal: Patient admits to loose stools, nausea and vomiting with bilious emesis Genitourinary: Patient denies dysuria or hematuria Musculoskeletal: Patient denies neck or back pain Integumentary: Patient denies abscess or rash Neurologic: Patient admits to headache in the frontal area but denies focal neurologic deficits Allergic: Patient denies mild swelling or urticaria 14 point review systems otherwise negative except for positives noted above in HPI. Vital Signs Vital Signs Vital Signs: 06/06/23 18:29 06/06/23 18:57 06/06/23 21:00 Temperature 99 F Temperature Source Temporal Pulse Rate 73 83 89 Respiratory Rate 14 16 16 Blood Pressure 160/79 H 147/73 H 150/76 H Blood Pressure Mean 106 97 100 Pulse Ox 100 96 95 Oxygen Delivery Method Room Air Room Air Room Air 06/06/23 23:00 Temperature Temperature Source Pulse Rate 70 Respiratory Rate 16 Blood Pressure 136/56 H Blood Pressure Mean 82 Pulse Ox 97 Oxygen Delivery Method Room Air Weight Weight: 169 lb 1.513 oz Body Mass Index (BMI) 30.9 Physical Exam Const alert, oriented x3 and average body habitus General Appearance: cooperative HEENT normocephalic, head/scalp atraumatic, hearing grossly normal bilaterally and moist oral mucous membranes Eyes PERRL, EOMs intact bilaterally and conjunctivae normal Neck no lymphadenopathy, supple and no JVD Resp normal respiratory effort, no retractions, no use of accessory muscles and clear to auscultation bilaterally Cardio regular rate and regular rhythm GI normal to inspection, nondistended, normoactive bowel sounds, soft to palpation, non-tender and non-distended Extremity normal to inspection Skin Skin Narrative: Patient has no evidence of rash at this time. Neuro oriented x3, CN's II-XII intact bilaterally, moves all extremities and no focal motor deficits Sensorium / Orientation: awake, alert, oriented to person, oriented to place and oriented to time Speech: speech normal Motor Exam: strength 5/5 throughout Psych Mood & Affect: anxious Results Medical Records Data Attestation: I reviewed the patient's medical records Lab / Micro Data Attestation: I reviewed the patient's lab results. 06/06/23 19:35 06/06/23 19:35 Labs: Laboratory Results - last 24 hr 06/06/23 19:35: WBC 13.3 H, RBC 4.27, Hgb 12.9, Hct 40.6, MCV 95.1, MCH 30.2, MCHC 31.8 L, RDW Std Deviation 44.9 H, RDW Coeff of Alfredo 12.9, Plt Count 254, MPV 10.2, Immature Gran % (Auto) 0.400, Neut % (Auto) 88.1 H, Lymph % (Auto) 8.9 L, [place] % (Auto) 2.0, Eos % (Auto) 0.1, Baso % (Auto) 0.5, Absolute Neuts (auto) 11.8 H, Absolute Lymphs (auto) 1.18, Nucleated RBC % 0, Sodium 138, Potassium 4.0, Chloride 105, Carbon Dioxide 27.0, Anion Gap 6, BUN 22 H, Creatinine 1.03 H, Est GFR (MDRD) Af Amer 66, Est GFR (MDRD) Non-Af 54 L, BUN/Creatinine Ratio 21.4 H, Glucose 146 H, Calcium 9.1, Total Bilirubin 0.40, AST 16, ALT 15, Alkaline Phosphatase 90, Total Protein 7.5, Albumin 3.9, Globulin 3.6, Albumin/Globulin Ratio 1.1 06/06/23 20:51: Urine Color Yellow, Urine Clarity Sl. Cloudy, Urine pH 7.0, Ur Specific [place] 1.010, Urine Protein 15 H, Urine Glucose (UA) Normal, Urine Ketones 50 H, Urine Occult Blood Negative, Urine Nitrite Negative, Urine Bilirubin Negative, Urine Urobilinogen Normal, Ur Leukocyte Esterase 25 H, Urine RBC 0 SEEN, Urine WBC 0-5 SEEN, Ur Squamous Epith Cells 0-5 SEEN, Urine Bacteria 1+, Urine Mucus 0 SEEN Radiology Impression Brain CT 06/06/23 20:24 IMPRESSION: 1. Mild involutional change and focal area of diminished density and loss of francis-white differentiation the RIGHT inferior frontal gyrus. Area of encephalomalacic in potential surrounding subacute ischemic changes are present. No evidence however of mass, hemorrhage, or acute territorial infarct. 2. No radiographically significant sinus disease.. Electronically Signed: Reid Garcia MD at 20:55 EST , Assessment & Plan Assessment/Plan (1) Inability to walk: (2) Dizziness: (3) History of TIA (transient ischemic attack): (4) Severe mitral valve stenosis: PLAN: Plan 1. TIA versus CVA with tendency to fall to the left due to acute disequilibrium - Admit CDU under observation status for treatment under the TIA protocol with patient to continue on her baby aspirin daily plus we will start a statin at this time. We will check MRI of the brain to evaluate for acute infarct. We will check carotid duplex to evaluate for stenosis. We will check echocardiogram to evaluate left ventricular ejection fraction and to assess patient's mitral valve with a history of severe mitral stenosis. We will allow for permissive hypertension until stroke is definitively ruled out. Finally, we will consult the neurologist on-call to see this patient on rounds in the a.m. with help appreciated in advance. 2. Frontal headache with nausea and vomiting likely due to #1 with a suspected component of BPPV - Continue supportive care. We will give Zofran as needed for nausea and vomiting. We will give Tylenol as needed for headache. We will also give meclizine as needed for breakthrough vertigo symptoms. 3. Generalized weakness with ambulatory dysfunction and frequent falls arising from #1 & #2 -patient will be admitted under fall precautions. We will consult PT/OT and case management to help this patient regain her mobility with help appreciated in advance. 4. Obesity with a BMI of 30.9 this admission - Weight loss will be recommended. Check TSH. 5. DVT prophylaxis - Lovenox 40 mg subcu daily. Total time: Approximately 45-minutes. Charges/Coding Visit Charges OBSV E&M: 34599 Observ/hosp same date L1
[2023-06-07] VITALS (7 sets, daily range): BP systolic 123–137; BP diastolic 59–74; PULSE 67–72; RESP 16–18; TEMP 36.2–36.7; O2SAT 96–100; BMI 32.3
--- NOTE | 2023-06-07 00:41 | ECHOD_ITS ---
Reason For Study: TIA/Stroke Procedure This was a 2D Doppler, Color Flow transthoracic echocardiogram. Exam performed portable in patient room. Left Ventricle Normal LV size. The estimated ejection fraction is 65 %. Unable to assess diastolic dysfunction. No regional wall motion abnormalities noted. Right Ventricle Normal RV size. Normal systolic function. Atria The left atrium is mildly enlarged. Normal right atrium. No doppler evidence for ASD. Mitral Valve Mitral valve doming/Hockey Sticking. Severe mitral valve stenosis. Trivial mitral valve insufficiency. Tricuspid Valve There is no tricuspid stenosis. Mild tricuspid valve insufficiency. Pulmonary artery systolic pressure is 45-50 mmHg. Aortic Valve Trisinus/trileaflet aortic valve. There is no aortic stenosis. No aortic valve insufficiency. Pulmonic Valve There is no pulmonic valvular stenosis. Trivial pulmonic valve insufficiency. Great Vessels Normal aortic root. Pericardium/Pleural No pericardial effusion. MMode/2D Measurements & Calculations LVIDd: 3.4 cm IVSd: 1.1 cm Ao root diam: 3.1 cm LVIDs: 2.0 cm LVPWd: 1.1 cm RVDd: 3.7 cm FS: 39.9 % LAV(MOD-bp): 46.5 ml LVAd ap4: 19.1 cm2 SV(MOD-sp4): 30.4 ml LAV(MOD-bp) Indexed: 26.1 ml/m2 LVLd ap4: 6.6 cm LAV(MOD-sp2): 58.7 ml EDV(MOD-sp4): 44.3 ml LAV(MOD-sp4): 36.2 ml EDV(sp4-el): 46.6 ml LVAs ap4: 9.7 cm2 LVLs ap4: 5.7 cm ESV(MOD-sp4): 13.9 ml ESV(sp4-el): 14.2 ml EF(MOD-sp4): 68.6 % EF(sp4-el): 69.6 % SV(sp4-el): 32.4 ml LA A4 area: 16.1 cm2 LA dimension(2D): 3.8 cm RA A4 area: 10.9 cm2 Time Measurements MV dec time: 0.45 sec Doppler Measurements & Calculations MV E max marco a: 201.8 cm/sec Lat Peak E' Marco A: 6.6 cm/sec Med Peak E' Marco A: 5.5 cm/sec MV A max marco a: 180.2 cm/sec E/E' lat: 30.5 E/E' med: 36.9 MV E/A: 1.1 MV V2 max: 213.6 cm/sec Ao V2 max: 132.5 cm/sec MV max P.3 mmHg MV dec slope: 446.7 cm/sec2 Ao max P.0 mmHg MV V2 mean: 154.7 cm/sec Ao V2 mean: 92.9 cm/sec MV mean P.2 mmHg Ao mean P.8 mmHg MV V2 VTI: 74.2 cm Ao V2 VTI: 32.2 cm AV (velocity ratio): 0.82 LV V1 max: 111.5 cm/sec PA V2 max: 86.4 cm/sec TR max marco a: 316.3 cm/sec LV V1 max P.0 mmHg TR max P.0 mmHg LV V1 mean P.6 mmHg LV V1 mean: 74.3 cm/sec LV V1 VTI: 26.4 cm ECHO/Echo Complete Interpretation Summary The estimated ejection fraction is 65 %. Unable to assess diastolic dysfunction. The left atrium is mildly enlarged. Mitral valve doming/Hockey Sticking Severe mitral valve stenosis. Trivial mitral valve insufficiency. Ordering Physician: Glenroy Rutherford Referring Physician: Ap Rutherford Performed By: Yana Mensah, RONI, RVT
--- NOTE | 2023-06-07 00:41 | MRI_ITS ---
ACR Level 3 findings have been noted. An addendum which confirms receipt of the report will follow. HISTORY: TIA versus CVA. TECHNIQUE: Multiplanar and multisequence MR images of the brain were obtained without contrast. 276 images. COMPARISON: CT prior day. FINDINGS: BRAIN PARENCHYMA: Moderate zone of restricted diffusion in the left inferior cerebellum with corresponding cytotoxic edema. Chronic mild right frontal infarct. Mild chronic white matter changes. No acute intracranial hemorrhage identified. CSF SPACES: Mild generalized volume loss. No significant midline shift or other mass effect.No extra-axial fluid collection. VASCULAR SYSTEM: Major intracranial flow voids are maintained. PARANASAL SINUSES AND MASTOID AIR CELLS: No significant air fluid levels. ORBITS: Bilateral lens resections. MRI/Brain without Contrast IMPRESSION: Acute left cerebellar infarct. Old right frontal infarct. Mild chronic involutional and white matter changes. Electronically Signed: Lynda Bueno MD at 9:32 EST ,
[2023-06-07] MEDS: Acetaminophen 500 MG Tablet 1000 MG PO (01:06)
[2023-06-07] MEDS: 0.9% Normal Saline (1000mL) 1,000 ML 100 ML IV ×2 (02:12→11:44)
[2023-06-07] MEDS: 0.9% Saline Lock 10 ML Syringe IV (02:12)
[2023-06-07] MEDS: Ketorolac 15 MG/ML Vial IV ×2 (02:15→08:17)
[2023-06-07] MEDS: Ondansetron 4 MG/2 ML Vial IV ×2 (02:15→08:17)
[2023-06-07] MEDS: Meclizine HCl 25 MG Tablet PO (05:25)
[2023-06-07 07:05] LABS: Absolute Lymphocyte Count 1.34 X10^3/uL (0.83-4.51); Absolute Neutrophil Count 7.3 X10^3/uL (2.0-7.7); Basophil# 0.02 X10^3/uL; Basophil% 0.2 % (0-1); Hematocrit 38.8 % (37-47); Hemoglobin 12.2 g/dL (12.0-15.0); Lymphocyte # 1.34 X10^3/ul (0.83-4.51); Lymphocyte % 14.6 % (19-41); Mean Corp Hgb Conc 31.4 g/dL (32-36); Mean Corpuscular Hgb 30.1 pg (27.0-32.0); Mean Corpuscular Volume 95.8 fL (81-99); Mean Platelet Vol. 10.5 fl (6.2-12.0); Monocyte# 0.52 X10^3/uL; Monocyte% 5.7 % (0-10); NRBC Flagged by Analyzer 0 % (0-5); Neutrophil # 7.29 X10^3/uL (2.7-7.7); Neutrophil % 79.3 % (47-70); Platelet Count 237 K/mm3 (150-450); RBC Distribution Width CV 12.9 % (11.6-14.6); RBC Distribution Width SD 46.2 fl (35.1-43.9); Red Blood Count 4.05 M/mm3 (4.2-5.4); White Blood Count 9.2 K/mm3 (4.4-11.0)
[2023-06-07 08:10] LABS: ALB/GLOB Ratio 0.9 RATIO (0.9-2.4); AST(SGOT) 14 U/L (15-37); Alanine Aminotransfer ALT/SGPT 13 U/L (13-56); Albumin, Serum 3.1 g/dL (3.2-5.0); Alkaline Phosphatase 79 U/L (45-117); Anion Gap 5 (5-15); BUN 19 mg/dL (7-18); BUN/Creat Ratio 20.8 RATIO (10-20); Calcium,Total 8.1 mg/dL (8.5-10.1); Chloride 108 mmol/L (98-107); Creatinine, Serum 0.92 mg/dL (0.55-1.02); EST Glomerular Filtration Rate 62 mL/min (>60); Est Glom Filt Rate - Afr Amer 75 mL/min (>60); Estimated Creatinine Clearance 34.35 ml/min; Globulin 3.4 g/dL (2.2-4.2); Glucose 105 mg/dL (74-106); Potassium 3.9 mmol/L (3.5-5.1); Protein, Total 6.5 g/dL (6.4-8.2); Sodium Level 139 mmol/L (136-145); Thyroid Stim Hormone (TSH) 1.15 uIU/mL (0.358-3.74)
[2023-06-07 08:35] LABS: Cholesterol 192 mg/dL (200); High Density Lipoprotein 59 mg/dL; Triglycerides 57 mg/dL; Very Low Density Lipoprotein 11 mg/dL (5-40)
--- NOTE | 2023-06-07 11:08 | PN.HOSP_ITS ---
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) Difficulty in walking, not elsewhere classified (06/07/23) Dizziness and giddiness (06/07/23) Personal history of transient ischemic attack (TIA), and cerebral infarction without residual deficits (06/07/23) Subjective Subjective Pt resting in bed, echo being presently preformed, pt still having headache and nausea Objective Data Objective Data Vital Signs: Vital Signs Temp Pulse Resp BP Pulse Ox O2 Del Method 97.2 F L 71 18 123/62 H 100 Room Air 06/07/23 08:21 06/07/23 08:21 06/07/23 08:21 06/07/23 08:21 06/07/23 08:21 06/07/23 08:22 Oxygen Delivery Method Room Air Weight: 77.6 kg Body Mass Index (BMI) 32.3 Intake & Output: Intake and Output for Last 24 Hours 06/05/23 06/06/23 06/07/23 23:59 23:59 23:59 Intake Total 1000 / 1000 Balance 1000 / 1000 Lab / Micro Data 06/07/23 06:25 06/07/23 06:25 Labs: Laboratory Results - last 24 hr 06/06/23 19:35: WBC 13.3 H, RBC 4.27, Hgb 12.9, Hct 40.6, MCV 95.1, MCH 30.2, MCHC 31.8 L, RDW Std Deviation 44.9 H, RDW Coeff of Alfredo 12.9, Plt Count 254, MPV 10.2, Immature Gran % (Auto) 0.400, Neut % (Auto) 88.1 H, Lymph % (Auto) 8.9 L, [place] % (Auto) 2.0, Eos % (Auto) 0.1, Baso % (Auto) 0.5, Absolute Neuts (auto) 11.8 H, Absolute Lymphs (auto) 1.18, Nucleated RBC % 0, Sodium 138, Potassium 4.0, Chloride 105, Carbon Dioxide 27.0, Anion Gap 6, BUN 22 H, Creatinine 1.03 H , Est GFR (MDRD) Af Amer 66, Est GFR (MDRD) Non-Af 54 L, BUN/Creatinine Ratio 21.4 H, Glucose 146 H, Calcium 9.1, Total Bilirubin 0.40, AST 16, ALT 15, Alkaline Phosphatase 90, Total Protein 7.5, Albumin 3.9, Globulin 3.6, Albumin/Globulin Ratio 1.1 06/06/23 20:51: Urine Color Yellow, Urine Clarity Sl. Cloudy, Urine pH 7.0, Ur Specific [place] 1.010, Urine Protein 15 H, Urine Glucose (UA) Normal, Urine Ketones 50 H, Urine Occult Blood Negative, Urine Nitrite Negative, Urine Bilirubin Negative, Urine Urobilinogen Normal, Ur Leukocyte Esterase 25 H, Urine RBC 0 SEEN, Urine WBC 0-5 SEEN, Ur Squamous Epith Cells 0-5 SEEN, Urine Bacteria 1+, Urine Mucus 0 SEEN 06/07/23 06:25: WBC 9.2, RBC 4.05 L, Hgb 12.2, Hct 38.8, MCV 95.8, MCH 30.1, MCHC 31.4 L, RDW Std Deviation 46.2 H, RDW Coeff of Alfredo 12.9, Plt Count 237, MPV 10.5, Immature Gran % (Auto) 0.200, Neut % (Auto) 79.3 H, Lymph % (Auto) 14.6 L, [place] % (Auto) 5.7, Eos % (Auto) 0.0, Baso % (Auto) 0.2, Absolute Neuts (auto) 7 .3, Absolute Lymphs (auto) 1.34, Nucleated RBC % 0, Sodium 139, Potassium 3.9, Chloride 108 H, Carbon Dioxide 26.0, Anion Gap 5, BUN 19 H, Creatinine 0.92, Estim Creat Clear Calc 34.35, Est GFR (MDRD) Af Amer 75, Est GFR (MDRD) Non-Af 62, BUN/Creatinine Ratio 20.8 H, Glucose 105, Calcium 8.1 L, Total Bilirubin 0.40, AST 14 L, ALT 13, Alkaline Phosphatase 79, Total Protein 6.5, Albumin 3.1 L, Globulin 3.4, Albumin/Globulin Ratio 0.9, Triglycerides 57, Cholesterol 192, LDL Cholesterol 122, VLDL Cholesterol 11, HDL Cholesterol 59, TSH 1.15 Radiography Diagnostic Testing: Radiology Impression Brain CT 06/06/23 20:24 IMPRESSION: 1. Mild involutional change and focal area of diminished density and loss of francis-white differentiation the RIGHT inferior frontal gyrus. Area of encephalomalacic in potential surrounding subacute ischemic changes are present. No evidence however of mass, hemorrhage, or acute territorial infarct. 2. No radiographically significant sinus disease.. Electronically Signed: Reid Garcia MD at 20:55 EST , Brain MRI 06/07/23 00:41 IMPRESSION: Acute left cerebellar infarct. Old right frontal infarct. Mild chronic involutional and white matter changes. Electronically Signed: Lynda Bueno MD at 9:32 EST , ADDENDUM: 06/07/23 1001 IMPRESSION: Acute left cerebellar infarct. Old right frontal infarct. Mild chronic involutional and white matter changes. N.B. : Rico Rodriguez RN, confirmed on 06/07/2023 09:54:06 (ET) that the healthcare facility has received the radiology report. Electronically Signed: Lynda Bueno MD at 9:32 EST , Physical Exam Narrative General: Resting comfortably, no acute distress HEENT: Atraumatic Eyes: Eyes closed resting comfortably Neck: Supple Respiratory: normal respiratory effort Cardiovascular: no edema appreciated GI: nondistended Extremities: Moving extremities in bed Neuro: Resting comfortably in bed, did not get patient up to walker for safety purposes and this was her main neurologic complaint, still feeling nauseous Psych: Cooperative Assessment & Plan Assessment/Plan (1) Cerebellar stroke, acute: (2) Secondary pulmonary arterial hypertension: PLAN: Plan #Acute left cerebellar stroke w/ old right frontal stroke -Seen on MRI -This would account for her symptoms -Echo with no PFO -Carotid duplex not available on the weekends, will get CTA to assess vessels in head and neck -When evaluated by neurology last night they recommended starting a Plavix load and then 75 mg daily of Plavix in addition to aspirin and statin if positive MRI so this has been started -Patient work with PT/OT -Supportive care for nausea and headache #Severe mitral valve stenosis -Not presently having any cardiac complaints, will need to follow-up with cardiology upon discharge #DVT ppx: Marco Meeks MD Time spent in the patient's overall evaluation,decision-making process, review of diagnostic data, adjustment of management, discussion with other providers, nursing nursing and ancillary staff involved in patient's care documentation, 37 minutes Charges/Coding Visit Charges Inpatient E&M: 40508 Subs Hosp L2
[2023-06-07] MEDS: Enoxaparin 40 MG/0.4 ML Syringe SC (11:43)
--- NOTE | 2023-06-07 11:43 | CT_ITS ---
HISTORY: found cva. TECHNIQUE: Noncontrast axial images were obtained of the brain. Subsequently, routine carotid and [place] CT angiogram protocol was performed after the intravenous administration of 100 mL Isovue-370. NASCET criteria using the distal ICAs for comparison were used for evaluation of stenoses. 3D reconstructions were reviewed. A radiation dose optimization technique was used for this scan .2118 images. COMPARISON: MRI same day, CT prior day. FINDINGS: --CT BRAIN: BRAIN PARENCHYMA: Moderate cytotoxic edema in the left inferior cerebellum without acute hemorrhagic transformation. Chronic right frontal periventricular infarct. Mild chronic small vessel ischemic gliosis CSF SPACES: Mild generalized volume loss. No midline shift or other significant mass effect.No acute extra-axial hemorrhage. OTHER: Intact calvarium. Clear paranasal sinuses and mastoid air cells. --CTA NECK: AORTIC ARCH AND BRANCHES: Mild atherosclerosis. RIGHT CCA: No occlusion, significant stenosis or dissection. Very mild calcified plaque the bifurcation with less than 20% stenosis. RIGHT ICA: No occlusion, significant stenosis or dissection. LEFT CCA: No occlusion, significant stenosis or dissection. LEFT ICA: No occlusion, significant stenosis or dissection. RIGHT VERTEBRAL ARTERY: No occlusion, significant stenosis or dissection. LEFT VERTEBRAL ARTERY: No occlusion, significant stenosis or dissection. --CTA HEAD: ICAs: No significant stenosis at the intracranial/visualized segments. Mild calcified plaque at both carotid siphons. ACAs: No significant stenosis at the visualized segments. MCAs: No significant stenosis at the visualized segments. manager intermediate: No significant stenosis at the visualized segments. BASILAR ARTERY: No significant stenosis. VERTEBRAL ARTERIES: Nonocclusive thrombus in the left vertebral artery with nonvisualization of the origin of the posterior inferior cerebellar artery. No evidence of intracranial aneurysm or vascular malformation. CT/CTA Head AND Neck W/ Contrast IMPRESSION: Acute left cerebellar infarct without evidence for acute intracranial hemorrhage. Chronic right frontal infarct. Mild chronic involutional and white matter changes. No evidence for significant stenosis or occlusion in the carotid or vertebral arteries of the neck. Partial thrombus of the intracranial left vertebral artery with suspicion for thrombus and occlusion in the proximal posterior inferior cerebellar artery. No evidence for large vessel occlusion in the anterior circulation. Electronically Signed: Lynda Bueno MD at 14:13 EST ,
[2023-06-07] MEDS: proCHLORPERazine 10 MG/2 ML Vial 5 MG IV (11:44)
[2023-06-07] MEDS: Aspirin E.C. 81 MG Tablet PO (11:59)
[2023-06-07] MEDS: Acetaminophen 325 MG Tablet 650 MG PO (11:59)
--- NOTE | 2023-06-07 12:30 | CASEMGMT ---
Social Work SW introduced self and role to daughter in patient's room. Pt sleeping soundly and did not awaken, SW agreed to come back later as patient very tired. SW to complete PHQ-9 for stroke protocol. SW returned to patient's room later and patient having medical evaluation. SW unable to complete PHQ-9 at this time. Ivette Espinoza WATER RESOURCE AGENT, STAMP CLASSIFIER
[2023-06-07] MEDS: Clopidogrel Bisulfate 300 MG Tablet PO (13:08)
--- NOTE | 2023-06-07 17:09 | PCM.HOSP.N ---
Hospitalist Note Given MRI CTA findings reconsulted teleneurology who recommended transfer to tertiary facility. Will initiate transfer
[2023-06-07] MEDS: Aspirin E.C. 81 MG Tablet 162 MG PO (18:20)
[2023-06-07] MEDS: Atorvastatin Calcium 40 MG Tablet PO (21:27)
--- NOTE | 2023-06-08 07:00 | PCM.DC.SUM ---
Providers Date of Admission: 06/07/23 Date of Discharge: 06/08/23 Primary Care Physician: Dr. Ap Rutherford MD Reason For Visit: CVA Diagnosis Discharge Diagnosis (1) Cerebellar stroke, acute: Status: Acute Code(s): I63.9 - Cerebral infarction, unspecified (2) Secondary pulmonary arterial hypertension: Status: Chronic Code(s): I27.21 - Secondary pulmonary arterial hypertension Plan #Acute left cerebellar stroke w/ old right frontal stroke #Severe mitral valve stenosis Medications at Discharge Home Medications aspirin 81 mg tablet,delayed release (Adult Aspirin Regimen) 81 mg PO DAILY 01/24/21 Hospital Course Summary of Care Provided Minutes Spent on Discharge: 50 Hospital Course: 83-year-old female history of CVA, rheumatic fever with mitral valve stenosis, secondary pulmonary arterial hypertension and OA who presented to [facility] 06/06/2023 with nausea, vomiting, and falls to the left. She was found to have a left acute cerebellar stroke and CTA revealed a partial thrombus of the left vertebral artery with what appeared to be an occlusion of the left PICA. Echo demonstrated mitral stenosis which was known per patient and family and was otherwise unremarkable. Patient was in normal sinus rhythm. [facility]ot[facility] neurology who given location of stroke and thrombi requested patient be transferred to tertiary facility with neurology capabilities. Patient and family verbalized understanding. She was transferred to [facility] neuro ICU in stable condition. Weight / BMI Weight Weight: 77.6 kg Body Mass Index (BMI) 32.3 ABG / Lab / Microbiology Data 06/07/23 06:25 06/07/23 06:25 Laboratory: Laboratory Results - last 24 hr 06/07/23 06:25: WBC 9.2, RBC 4.05 L, Hgb 12.2, Hct 38.8, MCV 95.8, MCH 30.1, MCHC 31.4 L, RDW Std Deviation 46.2 H, RDW Coeff of Alfredo 12.9, Plt Count 237, MPV 10.5, Immature Gran % (Auto) 0.200, Neut % (Auto) 79.3 H, Lymph % (Auto) 14.6 L, [place] % (Auto) 5.7, Eos % (Auto) 0.0, Baso % (Auto) 0.2, Absolute Neuts (auto) 7.3, Absolute Lymphs (auto) 1.34, Nucleated RBC % 0, Sodium 139, Potassium 3.9, Chloride 108 H, Carbon Dioxide 26.0, Anion Gap 5, BUN 19 H, Creatinine 0.92, Estim Creat Clear Calc 34.35, Est GFR (MDRD) Af Amer 75, Est GFR (MDRD) Non-Af 62, BUN/Creatinine Ratio 20.8 H, Glucose 105, Calcium 8.1 L, Total Bilirubin 0.40, AST 14 L, ALT 13, Alkaline Phosphatase 79, Total Protein 6.5, Albumin 3.1 L, Globulin 3.4, Albumin/Globulin Ratio 0.9, Triglycerides 57, Cholesterol 192, LDL Cholesterol 122, VLDL Cholesterol 11, HDL Cholesterol 59, TSH 1.15 Radiography Diagnostic Testing: Radiology Impression Brain MRI 06/07/23 00:41 IMPRESSION: Acute left cerebellar infarct. Old right frontal infarct. Mild chronic involutional and white matter changes. Electronically Signed: Lynda Bueno MD at 9:32 EST Reading Location ID and State: [facility] / [place] Tel , Service support , ADDENDUM: 06/07/23 1001 IMPRESSION: Acute left cerebellar infarct. Old right frontal infarct. Mild chronic involutional and white matter changes. N.B. : Rico Rodriguez RN, confirmed on 06/07/2023 09:54:06 (ET) that the healthcare facility has received the radiology report. Electronically Signed: Lynda Bueno MD at 9:32 EST , Echocardiogram 06/07/23 00:41 Interpretation Summary The estimated ejection fraction is 65 %. Unable to assess diastolic dysfunction. The left atrium is mildly enlarged. Mitral valve doming/Hockey Sticking Severe mitral valve stenosis. Trivial mitral valve insufficiency. Ordering Physician: Glenroy Rutherford Referring Physician: Ap Rutherford Performed By: Yana Mensah, RONI, RVT Head/Neck CTA 06/07/23 11:43 IMPRESSION: Acute left cerebellar infarct without evidence for acute intracranial hemorrhage. Chronic right frontal infarct. Mild chronic involutional and white matter changes. No evidence for significant stenosis or occlusion in the carotid or vertebral arteries of the neck. Partial thrombus of the intracranial left vertebral artery with suspicion for thrombus and occlusion in the proximal posterior inferior cerebellar artery. No evidence for large vessel occlusion in the anterior circulation. Electronically Signed: Lynda Bueno MD at 14:13 EST Reading Location ID and State: [facility] / [place] Tel , Service support , Meaningful Use Info Meaningful Use Diagnoses (Choose all that apply): Ischemic CVA CVA Therapy Assessed for PT,OT and/or ST?: Yes Ischemic Stroke Antithrombotic order at d/c?: Yes Dx of Atrial fib/flutter?: No Statins at discharge?: Yes Primary Dx Acute Ischemic CVA?: Yes Discharge Plan Admission Admit Date/Time: 06/07/23 12:00 Attending Provider: Cindy Meeks Primary Care Provider: Ap Rutherford Consulting Providers: Glenroy Rutherford Discharge Orders/Prescriptions Prescriptions: No Action aspirin [Adult Aspirin Regimen] 81 mg tablet,delayed release (DR/EC) 81 mg PO DAILY Hold Instructions: Ordered Referrals / Follow Up: Ap Rutherford MD [Primary Care Provider] - Disposition Disposition (needs filled in before D/C Order can be placed): Acute [facility]
== END 2023-06-07 22:30 | disposition short-term general hospital (02) | DRG 65 ==
LOC: ED 23:42 → PCU 06-07 00:39
PROVIDERS: Admitting Provider Internal Medicine; Emergency Provider Emergency Medicine; Visit Provider Internal Medicine
DX: I63.542 Cerebral infarction due to unspecified occlusion or stenosis of left cerebellar artery (principal); G81.94 Hemiplegia, unspecified affecting left nondominant side; I27.21 Secondary pulmonary arterial hypertension; I65.02 Occlusion and stenosis of left vertebral artery; I05.0 Rheumatic mitral stenosis; E66.9 Obesity, unspecified; R29.705 NIHSS score 5; R27.0 Ataxia, unspecified; Z79.82 Long term (current) use of aspirin; Z86.73 Personal history of transient ischemic attack (TIA), and cerebral infarction without residual deficits; Z68.30 Body mass index [BMI] 30.0-30.9, adult
CPT/HCPCS: 36415; 70450; 70496; 70498; 70551; 80053; 80061; 81001; 84443; 85025; 92610; 93306; 97802; 99285; J7030; Q9967; A4216; J2405

== ENCOUNTER 2023-08-14 09:11 | Inpatient (IN) | payer MEDICARE, SELFPAY ==
[2023-08-14] VITALS (8 sets, daily range): BP systolic 118–152; BP diastolic 54–84; PULSE 81–96; RESP 15–19; TEMP 36.2–36.6; O2SAT 94–100; BMI 31.1; BMI 30.9
--- NOTE | 2023-08-14 09:40 | CT_ITS ---
INDICATION: stroke symptoms- left sided EXAMINATION: CT BRAIN - CT Head or Brain W/O Contrast Injection TECHNIQUE: Multiple axial images were obtained of the head without intravenous contrast. A radiation dose optimization technique was used for this scan. IV Contrast dosage and agent: None. RADIATION DOSAGE (If Supplied By Facility): CTDIvol = ( 44.99 ) mGy, DLP = ( 762.36 ) mGycm COMPARISON: June 06, 2023 and MRI dated June 07, 2023 FINDINGS: BRAIN PARENCHYMA: No intra- or extra-axial hemorrhage. There is a stable focus of encephalomalacia within the right frontal lobe system with an old infarct. No evidence of acute infarct. No intracranial mass or mass effect. There is preservation of the francis/white matter interface. There is a focus of encephalomalacia within the left cerebellum with a prior infarct. CSF SPACES: Appropriate for age. No hydrocephalus. Basal cisterns are patent. CALVARIUM, SKULL BASE, PARANASAL SINUSES AND MASTOID AIR CELLS: There is partial opacification of the frontal, ethmoid, sphenoid and right maxillary sinuses. No discrete lytic or blastic abnormalities. ORBITS: Both globes, extraocular muscles, optic nerves and retrobulbar fat appear unremarkable. ASPECTS Score for Acute Strokes: 10 CT/Brain/Head without Contrast IMPRESSION: No acute intracranial process. Foci of encephalomalacia within the right frontal lobe and left cerebellum consistent with old infarcts. Partial opacification of the frontal, ethmoid, sphenoid and right maxillary sinuses consistent with sinusitis. Electronically Signed: Minnie Loo MD at 10:37 EST ,
--- NOTE | 2023-08-14 09:41 | RAD_ITS ---
INDICATION: stroke symptoms EXAMINATION/TECHNIQUE: X-RAY - XR Chest 1 View COMPARISON: No relevant prior comparison study available FINDINGS: LINES/DEVICES: None. LUNGS: There are a few right basilar ill-defined opacities. No pneumothorax. MEDIASTINUM AND CARDIOVASCULAR STRUCTURES: Cardiac silhouette not enlarged. Central airways and mediastinal contour are unremarkable. BONES AND SOFT TISSUES: Unremarkable. RAD/Chest 1 View (Portable) IMPRESSION: Right basilar atelectasis and/or pneumonia, recommend follow-up chest radiograph in 6-8 weeks to assess for resolution. Electronically Signed: Minnie Loo MD at 10:43 EST ,
--- NOTE | 2023-08-14 09:42 | EKG12_ITS ---
Test Reason : STROKE SYMPTOMS Blood Pressure : / mmHG Vent. Rate : 090 BPM Atrial Rate : 090 BPM P-R Int : 178 ms QRS Dur : 066 ms QT Int : 372 ms P-R-T Axes : 075 053 051 degrees QTc Int : 455 ms Normal sinus rhythm Low voltage QRS Borderline ECG Confirmed by MITALI EDWARD, JAS ([id number]), medical transcription editor MUSHTAQ BENAVIDES ([id number]) on 08/15/2023 9:52:21 AM Referred By: NAVI Confirmed By:JAS JASMINE MD
[2023-08-14 10:14] LABS: Absolute Lymphocyte Count 1.33 X10^3/uL (0.83-4.51); Absolute Neutrophil Count 7.4 X10^3/uL (2.0-7.7); Basophil# 0.04 X10^3/uL; Basophil% 0.4 % (0-1); Eosinophil# 0.04 X10^3/uL; Eosinophils% 0.4 % (0-5); Hematocrit 38.4 % (37-47); Hemoglobin 12.2 g/dL (12.0-15.0); Lymphocyte # 1.33 X10^3/ul (0.83-4.51); Lymphocyte % 14.2 % (19-41); Mean Corp Hgb Conc 31.8 g/dL (32-36); Mean Corpuscular Hgb 29.8 pg (27.0-32.0); Mean Corpuscular Volume 93.9 fL (81-99); Mean Platelet Vol. 9.3 fl (6.2-12.0); Monocyte# 0.55 X10^3/uL; Monocyte% 5.9 % (0-10); NRBC Flagged by Analyzer 0 % (0-5); Neutrophil # 7.36 X10^3/uL (2.7-7.7); Neutrophil % 78.9 % (47-70); Platelet Count 498 K/mm3 (150-450); RBC Distribution Width CV 13.5 % (11.6-14.6); RBC Distribution Width SD 46.2 fl (35.1-43.9); Red Blood Count 4.09 M/mm3 (4.2-5.4); White Blood Count 9.3 K/mm3 (4.4-11.0)
[2023-08-14 10:22] LABS: Partial Thromboplast Time 29.5 Seconds (24.1-36.2)
[2023-08-14 10:28] LABS: International Normalized Ratio 1.2; Prothrombin Time (Protime)PT. 15.1 SECONDS (11.7-14.9)
[2023-08-14 10:30] LABS: Anion Gap 3 (5-15); BUN 15 mg/dL (7-18); BUN/Creat Ratio 14.7 RATIO (10-20); CPK Total, Creatine Kinase 581 U/L (26-192); Calcium,Total 9.1 mg/dL (8.5-10.1); Chloride 108 mmol/L (98-107); Creatinine, Serum 1.02 mg/dL (0.55-1.02); EST Glomerular Filtration Rate 55 mL/min (>60); Est Glom Filt Rate - Afr Amer 66 mL/min (>60); Estimated Creatinine Clearance 37.99 ml/min; Glucose 118 mg/dL (74-106); Potassium 3.9 mmol/L (3.5-5.1); Sodium Level 143 mmol/L (136-145)
--- NOTE | 2023-08-14 10:37 | ED.RN ---
NO OLD EKG
--- NOTE | 2023-08-14 10:43 | ED.RN ---
Per Dr. Bowling, do another NIH assessment 1 hour after initial assessment. If it is the same, no need to continue assessments as symptoms began so long ago
--- NOTE | 2023-08-14 10:52 | CT_ITS ---
INDICATION: stroke symptoms, left sided EXAMINATION: CTA HEAD - CTA Head W/ Contrast Injection (and W/O Contrast Images if performed) TECHNIQUE: [place]/head CT angiogram protocol was performed following IV contrast. 3D reconstructions were reviewed. A radiation dose optimization technique was used for this scan. IV Contrast dosage and agent: 100 cc of Isovue-370 RADIATION DOSAGE (If Supplied By Facility): CTDIvol = ( 17.48 ) mGy, DLP = ( 348.64 ) mGycm COMPARISON: Prior study dated: 06/07/2023. FINDINGS: --Anterior circulation: ICAs: Mild atherosclerotic calcifications of the cavernous internal carotid arteries without significant stenosis. ACAs: No significant stenosis at the visualized segments. ACOM: Present. MCAs: No significant stenosis at the visualized segments. --Posterior circulation: PCOMs: Not visualized bilaterally radiology interventional physician: No significant stenosis at the visualized segments. BASILAR ARTERY: No significant stenosis. VERTEBRAL ARTERIES: No significant stenosis at the intradural/visualized segments. Persistent nonvisualization of the left posterior-inferior cerebellar artery. No evidence of intracranial aneurysm or vascular malformation. CT/CTA Head W/WO Contrast IMPRESSION: 1. No evidence of intracranial great vessel stenosis. 2. Persistent nonvisualization of the left PICA. Electronically Signed: Tanmay Kurtz MD at 12:00 EST ,
--- NOTE | 2023-08-14 10:54 | ED.VIS.STROK ---
HPI History of Present Illness Chief Complaint: Neuro S/Sx Informant: patient and family Narrative Narrative: Patient is a 83-year-old female presenting from home via EMS for concern of strokelike symptoms. Patient actually developed symptoms around 8:30 AM yesterday morning. She notes she woke up around 4 AM but did not get out of bed until around 8-onelia. She walked to the bathroom to try to take a shower when her left leg was weak and gave out on her. She then lay on the floor in her bathroom until around 4 PM when her son came over and helped her back up into the recliner. She was noted to have left facial droop when he checked on her at 4 PM and was weak on the left side and he was concerned she was having a stroke however patient refused transport. He stayed the night with her. She had worsening of her symptoms this morning and was ultimately brought to the emergency room. Did not take her normal Plavix or aspirin this morning. 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 Patient was home alone. Patient notes that she had a cough since around July 16 but that has resolved recently. Denies any recent fever or chills. Denies any chest pain, shortness of breath difficulty breathing. Has had some nausea since last night but is not had any vomiting. Denies any injuries associated with lowered her self to the ground yesterday. No other complaints or concerns at this time. [facility] Medical History Conjunctivitis, right eye CVA (cerebral vascular accident) History of basal cell carcinoma History of rheumatic fever History of TIA (transient ischemic attack) (12/05/20) Osteoarthritis Secondary pulmonary arterial hypertension Home Medications aspirin 81 mg tablet,delayed release (Adult Aspirin Regimen) 81 mg PO DAILY HEART HEALTH 01/24/21 [History Last Taken 08/13/23] atorvastatin 40 mg tablet 40 mg PO DAILY CHOLESTEROL 08/14/23 [History Last Taken 08/12/23] clopidogrel 75 mg tablet 75 mg PO DAILY BLOOD THINNER 08/14/23 [History Last Taken 08/13/23] multivitamin (Multiple Vitamins tablet) 1 tab PO DAILY SUPPLEMENT 08/14/23 [History Last Taken 08/13/23] Allergy/AdvReac Type Severity Reaction Status Date / Time No Known Allergies Allergy Verified 07/29/23 09:14 Surgical History H/O arthroscopic knee surgery History of carpal tunnel release Social History Smoking Status: Never smoker alcohol intake: never substance use type: does not use ROS ROS ED Constitutional Constitutional ED: Denies chills or fever(s) Eyes Eyes: Denies change in vision or diplopia ENT ENT ED: Denies sore throat Cardiovascular Cardiovascular: Denies chest pain Respiratory/Chest Respiratory/Chest: Denies cough Gastrointestinal Gastrointestinal: Denies nausea or vomiting Musculoskeletal Musculoskeletal: Denies arthralgias or myalgias Integumentary Denies rash Neurologic Neurologic: Reports weakness; Denies headache(s) or paresthesias Psychiatric Psychiatric: Denies anxiety Hematologic/Lymphatic Hematologic/Lymphatic: Denies easy bleeding or easy bruising EXAM Physical Exam Const Vital Signs: 08/14/23 09:13 08/14/23 10:41 Temperature 97.1 F L Temperature Source Temporal Pulse Rate 96 84 Respiratory Rate 19 H 16 Blood Pressure 144/65 H 141/70 H Blood Pressure Mean 91 93 Pulse Ox 97 100 Oxygen Delivery Method Room Air Room Air Positive well nourished and well developed General Appearance ED: well developed and NAD HEENT Reports TM's clear and moist mucous membranes atraumatic Tympanic Membrane ED: Yes TM's clear Eyes PERRL and EOMs intact bilaterally Neck supple Chest Wall inspection of chest normal and palpation of chest normal Resp normal respiratory effort and clear to auscultation bilaterally Cardio no murmurs Rate: regular rate GI normal to inspection, nondistended, normoactive bowel sounds and soft to palpation Extremity normal to inspection General Extremety ED: Negative for deformity or edema General Extremity: Negative for deformity or edema Neuro oriented x3 Neuro Narrative: Left facial droop with weakness of the left extremities (lower extremity more pronounced in upper extremity). Notrees Coma Scale: document GCS findings Spontaneous Obeys Commands Oriented 15 Sensorium / Orientation: alert Speech: speech normal Gait (Neuro): Negative for normal gait Psych mental status grossly normal Skin no wounds Lesions: no lesions NIHSS NIHSS Initial: 1a Level of Consciousness: 0 1b LOC Questions (Score 2 if aphasic/stupor): 0 1c LOC Commands (Only score 1st attempt): 0 2 Best Gaze (If aphasic, use reflexive mvmts.): 0 3 Visual: 0 4 Facial Palsy: 2 5 Motor Arm Right (UN = amputation/fusion): 0 5 Motor Arm Left: 1 6 Motor Leg Right: 0 6 Motor Leg Left: 2 7 Limb ataxia (Only + if out of proportion): 0 8 Sensory (Aphasia/stupor=0 or 1, coma=2): 0 9 Best Language: 0 10 Dysarthria (mute, coma=2, intubated=UN): 0 11 Extinction and Inattention (only scored if +): 1 Total Score: 6 MDM MDM MDM Narrative Medical decision making narrative: Patient evaluated stroke symptoms. Last known well was 24 hours ago so she is not a TNK candidate and a stroke alert is not called. Patient laid on the ground differential also includes rhabdomyolysis. CT of the brain ordered to rule out intracranial hemorrhage or any signs of mass or cerebral edema. CT of the brain does not show any acute intracranial process but does show encephalomalacia consistent with prior stroke. Workup largely normal however she does have a mild elevation of her CK (581) however her creatinine is at her baseline so she does not have any signs of a secondary ROGE. Started on maintenance fluid at 125 an hour. Will order CTA to make sure she does not have any large vessel occlusion acutely given that her kidney function is at baseline. Urinalysis is still pending however will likely need to be rehydrated patient is requesting to not have a straight cath. Patient be admitted for further evaluation of the stroke symptom as well as debility as she is not able to adequately take care of her self/ambulate at this time. Patient and family agreeable with plan of care. Patient is given a full dose aspirin in the emergency room. Chest x-ray shows questionable atelectasis versus infiltrate of the right basilar area. Given that she does not have a leukocytosis, fever and her cough has been improving will defer antibiotics at this time. X-ray reviewed by myself as well as radiology. CTA is negative for acute LVO. Does have a persistent nonvisualization of the left PICA. Will be admitted to the hospitalist service. Urinalysis is concerning for infection however it is mildly contaminated as well. Will send for culture and give a dose of IV Rocephin. It is possible that her urinary tract infection could be causing worsening of prior stroke symptoms/encephalomalacia however cannot exclude an acute stroke at this time I do think she benefit from a repeat MRI. History & Record Review Discussion w/independent historian: Patient and Family Additional record(s) reviewed:: Prior inpatient record (prior admission for TIA associated with cerebellar symptoms) Lab Data Attestation: I reviewed the patient's lab results. Labs: Laboratory Results - last 24 hr 08/14/23 08/14/23 09:53 11:26 WBC 9.3 RBC 4.09 L Hgb 12.2 Hct 38.4 MCV 93.9 MCH 29.8 MCHC 31.8 L RDW Std Deviation 46.2 H RDW Coeff of Alfredo 13.5 Plt Count 498 H MPV 9.3 Immature Gran % (Auto) 0.200 Neut % (Auto) 78.9 H Lymph % (Auto) 14.2 L [place] % (Auto) 5.9 Eos % (Auto) 0.4 Baso % (Auto) 0.4 Absolute Neuts (auto) 7.4 Absolute Lymphs (auto) 1.33 Nucleated RBC % 0 PT 15.1 H INR 1.2 APTT 29.5 Sodium 143 Potassium 3.9 Chloride 108 H Carbon Dioxide 32.0 Anion Gap 3 L BUN 15 Creatinine 1.02 Estim Creat Clear Calc 37.99 Est GFR (MDRD) Af Amer 66 Est GFR (MDRD) Non-Af 55 L BUN/Creatinine Ratio 14.7 Glucose 118 H Calcium 9.1 Total Creatine Kinase 581 H Urine Color Straw Urine Clarity Sl. Cloudy Urine pH 8.0 Ur Specific [place] 1.015 Urine Protein Negative Urine Glucose (UA) Normal Urine Ketones Negative Urine Occult Blood Negative Urine Nitrite Negative Urine Bilirubin Negative Urine Urobilinogen Normal Ur Leukocyte Esterase 500 H Urine RBC 0 SEEN Urine WBC 10-25 SEEN Ur Squamous Epith Cells 5-10 SEEN Urine Bacteria 2+ Urine Mucus 0 SEEN Radiography Chest X-Ray - ED: 1 View, Read by ED Physician and Read by Radiologist Diagnostic Testing: Clinical Impression(s) from Imaging Studies Brain CT 08/14/23 09:40 IMPRESSION: No acute intracranial process. Foci of encephalomalacia within the right frontal lobe and left cerebellum consistent with old infarcts. Partial opacification of the frontal, ethmoid, sphenoid and right maxillary sinuses consistent with sinusitis. Electronically Signed: Minnie Loo MD at 10:37 EST , Chest X-Ray 08/14/23 09:41 IMPRESSION: Right basilar atelectasis and/or pneumonia, recommend follow-up chest radiograph in 6-8 weeks to assess for resolution. Electronically Signed: Minnie Loo MD at 10:43 EST , Head CTA 08/14/23 10:52 IMPRESSION: 1. No evidence of intracranial great vessel stenosis. 2. Persistent nonvisualization of the left PICA. Electronically Signed: Tanmay Kurtz MD at 12:00 EST , Rhythm Strip Rhythm Strip: Sinus Rhythm Rate: 90 Ectopy: None EKG Initial EKG: Attestation: I personally reviewed and interpreted this EKG as follows: Interpretation: Sinus Rhythm Comments: Normal sinus rhythm at a rate of 90 bpm Normal axis Normal intervals Normal ST segments Low voltage QRS Management Discussion w/another healthcare provider: Hospitalist Discharge Plan Triage Chief Complaint: Neuro S/Sx ED Provider: Princess Bowling Dx/Rx/DC Orders Clinical Impression: Facial droop, Acute left-sided weakness, Acute UTI, Inability to walk Prescriptions: No Action aspirin [Adult Aspirin Regimen] 81 mg tablet,delayed release (DR/EC) 81 mg PO DAILY Hold Instructions: Ordered atorvastatin 40 mg tablet 40 mg PO DAILY clopidogrel 75 mg tablet 75 mg PO DAILY multivitamin [Multiple Vitamins] Tablet 1 tab PO DAILY Primary Care Provider: Ap Rutherford Referrals: Ap Rutherford MD [Primary Care Provider] - Disposition Disposition: [facility] Capacity Legal [employer] Reflex Medical hold order details:: IF a medical hold is selected below, a suggested order for a MEDICAL HOLD will reflex upon signing the document. Next of kin: [place] law dictates a PRIORITY LIST for identifying legal decision-maker/legal next of kin in the following order (LNOK): 1st: The patient?s legal guardian, if any 2nd: The patient's spouse (if status is questionable, consult Risk Management) 3rd: The patient?s adult child(orestes) (majority, if multiple children) 4th: The patient?s parents 5th: The patient?s adult siblings (majority, if multiple children siblings)
[2023-08-14] MEDS: Aspirin 81 MG TAB.CHEW 324 MG PO (11:22)
[2023-08-14] MEDS: 0.9% Normal Saline (1000mL) 1,000 ML 150 ML IV (11:22)
[2023-08-14 11:32] LABS: Mucous, Urine 0 SEEN /hpf (<or=2+); Red Blood Cells-Urine 0 SEEN /hpf (0-5)
[2023-08-14 11:36] LABS: Color, Urine Straw (Yellow); Glucose, Dipstick Normal (Normal); Ketone-Dipstick Negative (Negative); Leukocyte Esterase-Dipstick 500 /ul (Negative); Nitrite-Dipstick Negative (Negative); Occult Blood-Urine Negative /ul (Negative); Protein-Dipstick Negative (Negative); Specific Gravity, Urine 1.015 (1.002-1.030); Urine Bilirubin Dipstick Negative (Negative); Urine Clarity Sl. Cloudy (Clear); Urine Urobilinogen Normal (Normal)
[2023-08-14 12:25] LABS: Bacteria 2+ /hpf (None Seen); Squamous Epithelial Cells - UA 5-10 SEEN /hpf (5-10); White Blood Cells 10-25 SEEN /hpf (0-5)
[2023-08-14] MEDS: Ceftriaxone 1 GM/50 ML BAG IV (12:46)
--- OUTSIDE RECORDS SUMMARY | 2023-08-14 13:29 | XMS RPT_ITS | CCD ---
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 Role Phone KARIME EDWARD, MITUL Levy Primary Care Physician LD EDWARD, TANIA Levy Attending Unavailable KARIME CASTELLANOS, MITUL A Primary Care Unavailable DIALLO KENNY MD, TESSA Attending Unavail tonie SCHAFFER MD., MITUL A Primary Care Unavailable KARIME CASTELLANOS, MITUL A Primary Care Unavailable LD EDWARD, TANIA Levy Attending Unavailable KARIME CASTELLANOS, MITUL A Primary Care Unavailable LD EDWARD, TANIA Levy Attending Unavailable DIALLO KENNY MD, TESSA Attending Unavail tonie SCHAFFER MD., MITUL A Primary Care Unavailable Unavailable Primary Care Provider UnavailARLENE Saldivar Referring Unavailable GUZMAN ALMODOVAR Attending Unavailable GUZMAN ALMODOVAR Admitting Unavailable ABDON CALI Attending Unavailable ABDON CALI Admitting Unavailable HERBERT LANGE Consulting Unavailable Medications Current Medications Medication Drug Class(es) Dates Sig (Normalized) Sig (Original) aspirin 81 mg delayed release oral tablet (4 sources) Platelet Aggregation Inhibitor, Nonsteroidal Anti-inflammatory Drug Start: 01-24-2021 aspirin 81 mg oral delayed release tablet Dose : 81 mg = 1 tab(s), Oral, Daily, 0 Refill(s) Start Date: 03/13/21 Status: Ordered Completed/Discontinued Medications Medication Drug Class(es) Dates Sig (Normalized) Sig (Original) ascorbic acid 500 mg oral tablet (1 source) Vitamin C take 1 tablet by shanna th once daily ascorbic acid, vitamin C, (VITAMIN C) 500 mg tablet Take 500 mg by mouth once daily. 0 Active Problems Problem Classification Problem Date Documented Date Episodic/Chronic Acute cerebrovascular disease (7 sources) Cerebrovascular accident; Translations: [Cerebellar stroke] Onset: 06-07-2023 03-15-2021 Chronic Disorders of lipid metabolism (1 source) Mixed hyperlipidemia; Translations: [Mixed hyperlipidemia] Onset: 06-08-2023 06-08-2023 Chronic Heart valve disorders (4 sources) Mitral valve stenosis; Translations: [Rheumatic mitral stenosis] Onset: 06-09-2023 03-13-2021 Chronic Other and ill-defined cerebrovascular disease (1 source) Ataxia; 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] Onset: 06-08-2023 06-08-2023 Chronic Other circulatory disease (4 sources) History of cerebrovascular accident; Translations: [Personal history of transient ischemic attack (TIA), and cerebral infarction without residual deficits] Onset: 06-08-2023 03-13-2021 Episodic Other nervous system disorders (1 source) Cerebral edema; Translations: [Cerebral edema] Onset: 06-08-2023 06-09-2023 Chronic Other nutritional; endocrine; and metabolic disorders (1 source) Obesity; Translations: [Obesity, unspecified] Onset: 06-08-2023 06-08-2023 Chronic Other nutritional; endocrine; and metabolic disorders (1 source) Hypophosphatemia; Translations: [Other disorders of phosphorus metabolism] Onset: 06-09-2023 06-09-2023 Chronic Unclassified (3 sources) Basal cell carcinoma 03-13-2021 Results Test Name Value Interpretation Reference Range Facil ity Vital Signs Date Time Vital Sign Value Performing Clinician Faci lity 02-12-2022 12:45-0400 Diastolic Blood Pressure NBP [address] TANIA JAFFE MD [facility] 02-12-2022 12:45-0400 Heart rate 93 /min DR TANIA JAFFE MD [facility] 02-12-2022 12:45-0400 Respiratory rate 16 /min DR TANIA JAFFE MD [facility] 02-12-2022 12:45-0400 Systolic Blood Pressure NBP [address] TANIA JAFFE MD [facility] 02-12-2022 10:55-0400 Diastolic Blood Pressure NBP [address] TANIA JAFFE MD [facility] 02-12-2022 10:55-0400 Heart rate 89 /min DR TANIA JAFFE MD [facility] 02-12-2022 10:55-0400 Respiratory rate 16 /min DR TANIA JAFFE MD [facility] 02-12-2022 10:55-0400 Systolic Blood Pressure NBP [address] TANIA JAFFE MD [facility] 02-12-2022 10:15-0400 Diastolic Blood Pressure NBP [address] TANIA JAFFE MD [facility] 02-12-2022 10:15-0400 Heart rate 92 /min DR TANIA JAFFE MD [facility] 02-12-2022 10:15-0400 Respiratory rate 16 /min DR TANIA JAFFE MD [facility] 02-12-2022 10:15-0400 Systolic Blood Pressure NBP [address] TANIA JAFFE MD [facility] 02-12-2022 09:11-0400 Body temperature 96.44 [degF] DR TANIA JAFFE MD [facility] 02-12-2022 05:59-0400 Body height [address] TANIA JAFFE MD [facility] 02-12-2022 05:59-0400 Body temperature 97.34 [degF] DR TANIA JAFFE MD [facility] 02-12-2022 05:59-0400 Body weight 78.[address] TANIA JAFFE MD [facility] 02-12-2022 05:59-0400 Heart rate 86 /min DR TANIA JAFFE MD [facility] 01-29-2022 10:18-0400 Body height [address] TANIA JAFFE MD [facility] 01-29-2022 10:18-0400 Body weight 78.[address] TANIA JAFFE MD [facility] 01-29-2022 10:18-0400 Body weight 32.55 kg/m2 DR TANIA JAFFE MD [facility] 01-29-2022 10:18-0400 diastolic 80 mm[Hg] DR TANIA JAFFE MD [facility] 01-29-2022 10:18-0400 Heart rate 90 /min DR TANIA JAFFE MD [facility] 01-29-2022 10:18-0400 systolic 132 mm[Hg] DR TANIA JAFFE MD [facility] Encounters Encounter Date Encounter Type Care Provider Facility Start: 06-11-2023 End: 06-20-2023 ambulatory ABDON CALI Facility:[facility] Start: 06-11-2023 End: 06-20-2023 Subsequent hospital visit by physician Abdon Cali DO Work Phone: [facility] Start: 06-08-2023 Evaluation and management of inpatient ARLENE UP Facility:[facility] Start: 06-07-2023 ambulatory Yoana Crawford MD Work Phone: Neurosurgery Procedures Date Procedure Procedure Detail Performing Clinician Start: 06-16-2023 Blood count complete automated Abdon Cali DO Work Phone: Start: 06-12-2023 Basic metabolic pane l calcium total Abdon Cali DO Work Phone: Start: 02-12-[address] TANIA JAFFE MD Start: 12-15-[address] CINTHYA EDWARD Plan of Treatment Date Care Activity Detail Author Start: 06-12-2026 Diabetes Screening Diabetes Screenin g [facility] Start: 03-28-2023 Influenza vaccination Influenza Vacc ine (#1) [facility] Start: 07-28-2022 Advance Directive Discussion Advance Directive Discussion [facility] Start: 07-28-2022 Depression Assessment Depression Ass essment [facility] Start: 01-23-2004 Bone Density Screening Bone Density Screening [facility] Start: 1999 RSV Vaccine (1 - 1-d ose 60+ series) RSV Vaccine (1 - 1-dose 60+ series) [facility] Start: 1989 Shingrix Vaccine (1 of 2) Shingrix V accine (1 of 2) [facility] Start: 1958 Urine microalbumin profile DTaP,Tdap,Td Vaccine (1 - Tdap) [facility] Start: 1945 Pneumococcal Vaccine : 65+ (1 - PCV) Pneumococcal Vaccine: 65+ (1 - PCV) [facility] Start: 1940 Covid-19 Vaccine (#1) Covid-19 Vacci ne (#1) [facility] Payers Date Payer Category Payer Unknown [id number] 2000 Private Health Insurance [facility] OPTIONS PPO [id number] 2000-Present [phone] [address] [place] [address] PPO [id number] 2000 Unknown [id number] 1940 Unknown [id number] 1940 Unknown [id number] 1940 Unknown [id number] 1940 Unknown [id number] 1940 Unknown [id number] Unknown [id number] Social History Date Type Detail Facility Start: 03-13-2021 Tobacco smoking status Never smoked tobacco (finding) [facility] Sex Assigned At Sex [facility] Tobacco smoking status ORIS Tobacco smoking consumption unknown [facility] Work Phone: Start: 1940 Sex Assigned At Not on file [facility] Start: 06-09-2023 Gender identity Not on file [facility] Work Phone: Start: 06-09-2023 History of Social function [facility] Work Phone: How hard is it for you to pay for the very basics like food, housing, medical care, and heating Not hard at all [facility] Work Phone: (I/We) worried whether (my/our) food would run out before (I/we) got money to buy more. Never true [facility] Work Phone: In the past 12 months, was there a time when you were not able to pay the mortgage or rent on time? No [facility] Work Phone: Functional Status Date Assessment Result Facility 02-12-2022 Functional Status Dtr will be [facility]ord[facility] with patient [facility] 02-12-2022 Functional Status ice on [facility] 02-12-2022 Functional Status [facility] 02-12-2022 Functional Status Maintained [facility] 01-29-2022 Functional Status Sensory Deficits None A [facility] Mental Status Date Assessment Result Facility 02-12-2022 Mental Status Orientation Asse ssment Oriented x 4 [facility] 02-12-2022 Mental Status Orientation Oriented x 4 [facility] 02-12-2022 Mental Status [facility] Clinical Notes 01-29-2022 to 06-11-2023 Note Date & Type Note Facility 06-11-2023 Note HNO ID: [id number] Author: Abelino Dominguez RPh Service: Pharmacy Author Type: Pharmacist Type: Plan of Care Filed: 06/11/2023 12:40 PM Note Text: DISCHARGE MEDICATION REVIEW BY PHARMACY Patient Name: Liban Tracey Account #: Data Unavailable Admission Date: 06/07/2023 Date of Contact: June 11, 2023 Time of Contact: 12:33 PM Medication list was reviewed by a Pharmacist for drug interactions or drug related problems:Yes Below is a summary of pharmacist recommendations discussed with LIP: No Recommendations at this time from Discharge Medication List. Ischemic Stroke Care Path Core Measures High intensity statin ordered? Yes: Atorvastatin 40 mg Antithrombotic ordered? DAPT: spirin 81 mg and plavix 75 mg daily Additional Neuro Recs? N/A Abelino Dominguez RPh June 11, 2023 12:33 PM Pager: [phone] 06/11/2023 12:33 PM Medication List START taking these medications atorvastatin 40 mg tablet Commonly known as: LIPITOR 1 tablet by ORAL/FEEDING TUBE route daily at bedtime. clopidogrel 75 mg tablet Commonly known as: PLAVIX 1 tablet by ORAL/FEEDING TUBE route once daily. Start taking on: June 12, 2023 CONTINUE taking these medications aspirin, enteric coated 81 mg EC tablet Commonly known as: ASPIRIN, ENTERIC COATED triamcinolone acetonide 0.1 % ointment Commonly known as: KeNALog VITAMIN C 500 mg tablet Generic drug: ascorbic acid (vitamin C) WOMEN'S MULTIVITAMIN ORAL [facility] 06-11-2023 Note HNO ID: [id number] Author: Ynes Campos RN Service: Care Management Author Type: Registered Nurse Type: Care Mgt Progress Note Filed: 06/11/2023 12:21 PM Note Text: CARE MANAGEMENT DISCHARGE NOTE SERVICE DATE: June 11, 2023 SERVICE TIME: 12:20 PM Admission Date: 06/07/2023 LOS: 4 days Discharge Arrangement Discharge Arrangement: Acute Rehabilitation Facility Services Arranged Medical Services: Other: See Comment (n/a) Provider Name: [facility] Caregiver Assessment Caregiver is ready, willing and able to meet the patient's needs as recommended by the inter-professional team: No Caregiver needed Transportation Arrangements Transportation Arrangements: Car Handoff Communication: Handoff to: Other Caregiver Other Caregiver Name/Phone: RN to call report to nurse at facility Additional Information: Pt has auth to go to [facility]. The patient's family is planning to drive her there and leave the hospital at 1330. [facility] is aware that family will be driving her. SIGNATURE: Ynes Campos RN PATIENT NAME: Liban Tracey DATE: June 11, 2023 TIME: 12:20 PM CONTACT #: [phone] [facility] 06-11-2023 Note HNO ID: [id number] Author: Ynes Campos RN Service: Care Management Author Type: Registered Nurse Type: Care Mgt Progress Note Filed: 06/11/2023 10:57 AM Note Text: CARE MANAGEMENT PROGRESS NOTE SERVICE DATE: 06/11/2023 SERVICE TIME: 10:56 AM LOS: 4 days Needs Prior to Discharge: Ready for Discharge IMM Follow Up Copy Given: No Reason: Acute Rehab The patient has auth to go to [facility] for [facility]. Her bed will be available at 1330 today. Her family plans to drive her there when ready for discharge. Will notify the attending. SIGNATURE: Ynes Campos RN PATIENT NAME: Liban Tracey DATE: June 11, 2023 TIME: 10:56 AM PAGER/CONTACT #: [phone] [facility] 06-10-2023 Note HNO ID: [id number] Author: Alexandria Hatfield RN Service: ? Author Type: Registered Nurse Type: Nursing Progress Note Filed: 06/10/2023 1:09 PM Note Text: Gag reflex checked and has returned. Patient okay to start oral intake per order. [facility] 06-10-2023 Note HNO ID: [id number] Author: Kim Sinclair MD Service: Hospital Medicine Author Type: Physician Type: Progress Notes Filed: 06/10/2023 1:03 PM Note Text: INPATIENT HOSPITAL MEDICINE PROGRESS NOTE Subjective Feeling tired from procedure this morning. Patient denies sob, fever, headache, N/V, diarrhea, or dysuria. Objective PHYSICAL EXAM: BP 130/68 Pulse 75 Temp (Src) 97.2 (Oral) Resp 18 Ht 5' 1 (1.55m) Wt 168 lb 4.8 oz (76.3kg) SpO2 97% BMI 31.82 kg/(m2). O2 Therapy: Room Air General: No acute distress CV: RRR, S1/2 audible, no murmur Abd: Soft, non-tender, non-distended. BS+ Ext: No edema. Atraumatic Neuro: AANDO x 3. Dysmetria Lt arm. Power 5/5 all limbs. DATA: LABORATORY TESTS: CBC: Recent Labs 06/09/23 0454 06/08/23 0356 WBC 10.22 8.47 HB 12.9 11.2* PLT 273 233 MCV 92.9 92.9 CHEM: Recent Labs 06/10/23 0507 06/09/23 0454 06/08/23 0356 NA -- 141 142 K -- 4.1 3.6* CA -- 8.7 8.6 MG -- 2.0 2.2 P 3.0 2.6* 2.7 ANION -- 10 9 CHLOR -- 105 106* CO2 -- 26 27 GLUC -- 97 91 BUN -- 15 17 CREAT -- 1.14* 1.08* HEPATIC: No results for input(s): ALT , AST , TBILI , ALKPHOS , ALB , TPROT , LIPASE in the last 168 hours. URINALYSIS:No results for input(s): SPGR , UBACTERIA , LEUKEST , SSA , UWBC , URBC , UHB , UPROT , UGLUC , UKET in the last 168 hours. Invalid input(s): NITR COAG: Recent Labs 06/08/23 1320 APTT 26.3 INR 1.1 CARDIAC: No results for input(s): CKMB , CKMBP , TROPT , PBNP in the last 168 hours. Imaging: CT BRAIN WO IVCON Result Date: 06/08/2023 IMPRESSION: No significant interval change in acute left cerebellar infarct. MR-Brain without Contrast IMPORT Result Date: 06/07/2023 Images were obtained outside of [facility] OT-Brain/Head without Contrast IMPORT Result Date: 06/07/2023 Images were obtained outside of [facility] CT-CTA Head AND Neck W/ Contrast IMPORT Result Date: 06/07/2023 Images were obtained outside of [facility] Most recent EKG NSR Blood and Urine Culture: Positive Micro-30 Days No results found for the last 720 hours. Problem list Cerebellar stroke, acute (HCC) (POA: Yes) Mixed hyperlipidemia (POA: Yes) Ataxia due to acute cerebrovascular disease (POA: Yes) Class 1 obesity in adult (POA: Yes) Rheumatic mitral stenosis (POA: Yes) Hypophosphatemia (POA: Yes) Assessment and plan: Liban Tracey is a 83 year old with PMH of h/o stroke, rheumatic fever aged 7 complicated by severe mitral stenosis. Presented to [place] ED with GOLDMAN, ataxia, and presyncope on 06/05. MRI brain showed left cerebellar infarct. Teleneurology recommended tertiary center with neurosurgery capability. Patient was monitored on NSICU. Remained stable. Transferred to [facility] 06/08/2023. # Acute left cerebellar stroke # Severe mitral stenosis # HLD - Neuro-checks every 4 - Neurology consulted. C/w DAPT (aspirin 81 mg p.o. daily, Plavix 75 mg p.o. daily), JUDE 06/10 result pending, 30 days event monitor upon discharge - Stroke protocol - Telemetry - Permissive hypertension. To treat of blood pressure if higher than 220/120 - Lipid profile 06/16; LDL 110. Increased atorvastatin to 80 mg p.o. daily check lipid profile and A1c 5.5 (06/08/2023) - MRI brain done at [facility] 06/09. Regular diet. - PT/OT > acute rehab. Pre-CERT pending # Hypokalemia. Resolved # Hypophosphatemia. Resolved. Plan of care discussed with: Provider, RN, Patient. QUALITY METRICS: VTE Prophylaxis: Heparin 5000 units Sub Q BID Disposition: TBD Functional Status Prior to Admit: Independent Code status: DNR CCA Disclaimer This dictation was created using voice recognition software. Phonetic and/or minor grammatical errors may exist. SIGNATURE: Kim Sinclair MD PATIENT NAME: Liban Tracey DATE: 06/10/2023 TIME: 1:01 PM [facility] 06-10-2023 Note HNO ID: [id number] Author: Ynse Campos RN Service: Care Management Author Type: Registered Nurse Type: Care Mgt Progress Note Filed: 06/10/2023 3:56 PM Note Text: CARE MANAGEMENT PROGRESS NOTE SERVICE DATE: 06/10/2023 SERVICE TIME: 12:00 PM LOS: 3 days Needs Prior to Discharge: OT/PT Evaluation;Insurance Authorization;Bed Availability;Accepting Facility;Facility or Agency Choices;Discharge Transportation [place] of Choice Given: Yes Level of Care Discussed: Inpatient Rehab Facility Financial Disclosure Provided: Yes Financial Disclosure Comments: discussed with patient Provider List: Rehab Facility Provider list within the patient's requested geographic area shared with the patient/family: No Quality and resource use metrics shared with the patient that are relevant to the patient's goals of care and treatment preferences:: No Chart reviewed. PT recommending [place]. The patient is agreeable and her [facility] choice facility is [facility] Referral was sent. If they can accept, we will start precert today once OT note is in. She wants her family to transport her to [place] if possible. Addendum: [facility] is able to accept. Precert was started. SIGNATURE: Ynes Campos RN PATIENT NAME: Liban Tracey DATE: June 10, 2023 TIME: 11:59 AM PAGER/CONTACT #: [phone] [facility] 06-10-2023 Note HNO ID: [id number] Author: Lei Jules MD Service: Cardiovascular Medicine Author Type: Physician Type: Plan of Care Filed: 06/10/2023 10:03 AM Note Text: DNR status to be reversed to full code for the JUDE as discussed and agreed by the patient, DNR status will be re-instated after JUDE. Lei Jules MD, [facility] Cardiovascular Fuel TechnicianPerioperative Techcertified adapted physical educator [facility] Pager: [phone] [facility] 06-09-2023 Note HNO ID: [id number] Author: Kim Sinclair MD Service: Hospital Medicine Author Type: Physician Type: Progress Notes Filed: 06/09/2023 1:20 PM Note Text: INPATIENT HOSPITAL MEDICINE PROGRESS NOTE Subjective Well today. Patient denies GOLDMAN, sob, fever, headache, N/V, diarrhea, or dysuria. Objective PHYSICAL EXAM: BP 139/71 Pulse 90 Temp (Src) 99.1 (Oral) Resp 18 Ht 5' 1 (1.55m) Wt 174 lb 9.7 oz (79.2kg) SpO2 96% BMI 33.01 kg/(m2). O2 Therapy: Room Air General: No acute distress CV: RRR, S1/2 audible, no murmur Abd: Soft, non-tender, non-distended. BS+ Ext: No edema. Atraumatic Neuro: AANDO x 3. Dysmetria Lt arm. Power 5/5 all limbs. DATA: LABORATORY TESTS: CBC: Recent Labs 06/09/2345306/08/23355 WBC 10.22 8.47 HB 12.9 11.2* PLT 273 233 MCV 92.9 92.9 CHEM: Recent Labs 06/09/2345306/08/23 0356 NA 141 142 K 4.1 3.6* CA 8.7 8.6 MG 2.0 2.2 P 2.6* 2.7 ANION 10 9 CHLOR 105 106* CO2 26 27 GLUC 97 91 BUN 15 17 CREAT 1.14* 1.08* HEPATIC: No results for input(s): ALT , AST , TBILI , ALKPHOS , ALB , TPROT , LIPASE in the last 168 hours. URINALYSIS:No results for input(s): SPGR , UBACTERIA , LEUKEST , SSA , UWBC , URBC , UHB , UPROT , UGLUC , UKET in the last 168 hours. Invalid input(s): NITR COAG: Recent Labs 06/08/23 1320 APTT 26.3 INR 1.1 CARDIAC: No results for input(s): CKMB , CKMBP , TROPT , PBNP in the last 168 hours. Imaging: CT BRAIN WO IVCON Result Date: 06/08/2023 IMPRESSION: No significant interval change in acute left cerebellar infarct. MR-Brain without Contrast IMPORT Result Date: 06/07/2023 Images were obtained outside of [facility] OT-Brain/Head without Contrast IMPORT Result Date: 06/07/2023 Images were obtained outside of [facility] CT-CTA Head AND Neck W/ Contrast IMPORT Result Date: 06/07/2023 Images were obtained outside of [facility] Most recent EKG NSR Blood and Urine Culture: Positive Micro-30 Days No results found for the last 720 hours. Problem list Cerebellar stroke, acute (HCC) (POA: Yes) Mixed hyperlipidemia (POA: Yes) Ataxia due to acute cerebrovascular disease (POA: Yes) Class 1 obesity in adult (POA: Yes) Severe mitral valve stenosis (POA: Yes) Hypophosphatemia (POA: Yes) Assessment and plan: Liban Tracey is a 83 year old with PMH of h/o stroke, rheumatic fever aged 7 complicated by severe mitral stenosis. Presented to [place] ED with GOLDMAN, ataxia, and presyncope on 06/05. MRI brain showed left cerebellar infarct. Teleneurology recommended tertiary center with neurosurgery capability. Patient was monitored on NSICU. Remained stable. Transferred to [facility] 06/08/2023. # Acute left cerebellar stroke # Severe mitral stenosis # HLD - Neuro-checks every 4 - Neurology consulted. C/w DAPT (aspirin 81 mg p.o. daily, Plavix 75 mg p.o. daily), JUDE pending planned 06/10, 30 days event monitor - Stroke protocol - Telemetry - Permissive hypertension. To treat of blood pressure if higher than 220/120 - Lipid profile 06/16; LDL 110. Increase atorvastatin to 80 mg p.o. daily check lipid profile and A1c 5.5 (06/08/2023) - MRI brain done at [facility] 06/09. Regular diet. - PT/OT pending # Hypokalemia. Resolved # Hypophosphatemia mild. Replace orally w/ K-phos 06/09 Plan of care discussed with: Provider, RN, Patient. QUALITY METRICS: VTE Prophylaxis: Heparin 5000 units Sub Q BID Disposition: TBD Functional Status Prior to Admit: Independent Code status: DNR CCA Disclaimer This dictation was created using voice recognition software. Phonetic and/or minor grammatical errors may exist. SIGNATURE: Kim Sinclair MD PATIENT NAME: Liban Tracey DATE: 06/09/2023 TIME: 1:18 PM [facility] documented as of this encounter (statuses as of 06/20/2023) [facility]11-12-2023 NoteHNO ID: [id number] Author: Nilsa Prater [facility] Service: Pharmacy Author Type: Pharmacist Type: Plan of Care Filed: 06/10/2023 9:38 AM Note Text: PHARMACY MEDICATION REVIEW Patient Name: Liban Tracey : 1940 The following medications were updated within the NICU RN medication list: Medications ADDED to NICU RN medication list ascorbic acid, vitamin C, (VITAMIN C) 500 mg tablet Patient Yes Yes aspirin, enteric coated (ASPIRIN, ENTERIC COATED) 81 mg EC tablet Patient Yes Yes mv-min/iron/folic/calcium/vitK (WOMEN'S MULTIVITAMIN ORAL) Patient Yes Yes triamcinolone acetonide (KENALOG) 0.1 % ointment OTHER, Patient Yes Yes OTC medications and Kenalog RX as needed. (Poison Jen exposure per pt) Medications CHANGED on NICU RN medication list Medications REMOVED from NICU RN medication list Additional comments: I was able to talk with pt. and she verified the 4 medications on the NICU RN list. I have added these 4 medications to the NICU RN list and have not removed or changed any medications. Pt states she uses [facility] for her home medications. Required follow up actions for nursing: Medication history completed by Historian. No nursing follow up required. The below information represents the best possible medication history: Yes Medication history completed by: Clinical Implementation Specialist: Brendan Sánchez (Jukebox Checker) Source of history: Patient: Reliability of source: Appears reliable, clearly identified: Medication name, Medication dose, Medication route, and Medication frequency and Pharmacy records: [facility] Medication nonadherence identified: No barriers noted Reconciliation completed: Yes Completed by: Nilsa Prater, PharmD, [facility] Nursing Unit Based Pharmacist Ext: [phone] All NICU RN medications addressed by LIP Patient interested in Bedside Delivery Services or using OP Pharmacy at discharge? Unable to assess Preferred outpatient pharmacy: [facility] [place] [address] [address] - [phone] Allergies: No Known Allergies Prior to Admission Medications Prescriptions Last Dose Informant Patient Reported? Taking? ascorbic acid, vitamin C, (VITAMIN C) 500 mg tablet Patient Yes Yes Sig: Take 500 mg by mouth once daily. aspirin, enteric coated (ASPIRIN, ENTERIC COATED) 81 mg EC tablet Patient Yes Yes Si mg once daily. mv-min/iron/folic/calcium/vitK (WOMEN'S MULTIVITAMIN ORAL) Patient Yes Yes Sig: Take 1 tablet by mouth once daily. triamcinolone acetonide (KENALOG) 0.1 % ointment OTHER, Patient Yes Yes Sig: APPLY TO THE AFFECTED AREA(S) AT BEDTIME UNTIL GONE AND USE TWICE DAILY in THE future [facility] Facility-Administered Medications: None Brendan Sánchez (Jukebox Checker) phone [phone] 06/08/2023 I have reviewed and agree with the medication history note completed by the medication historian as documented above. All medications reviewed and reconciled appropriately. Nilsa Ortiz, PharmD, [facility] Nursing Unit Based Pharmacist Ext: [phone] NoteHNO ID: [id number] Author: Daniella Strickland APRN.ENTERTAINMENT REPORTER Service: Neurology ICU Author Type: Nurse Practitioner Type: Progress Notes Filed: 06/08/2023 6:24 AM Note Text: Patient arrived from [place]. Exam stable. Still with left sided dysmetria. GOLDMAN and nausea controlled. She is on RA and protecting airway. We will hold Chemo VTE ppx until need for decompression ruled out. Full note to follow. Stroke Care path started.[facility]23 NoteHNO ID: [id number] Author: Yoana Crawford MD Service: ? Author Type: Fellow Type: Progress Notes Filed: 06/07/2023 7:03 PM Note Text: Stroke Neurology Plan of Care Paged by regarding transfer request for pt currently residing at [facility]. Spoke to Dr. Up for the following information. 83F who presented yesterday for 1 day of feeling off balance and falling to the left with n/v. LKW 06/05. [facility] NAP. 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 OSH neuro advising transfer to higher level of care for thrombectomy capabilities. Currently, her NIHSS = 2 for L sided ataxia. Exam has been stable for past several days. She was loaded w/ ASA and plavix and remains on DAPT. SBP 129/59. On RA. Pt will benefit from transfer to higher level of care for close monitoring of cerebral edema given probable large posterior circulation infarct (do not have images to review, but presumably full PICA involvement would represent large infarct) and need for hyperosmolar therapy +/- suboccipital crani should her neuro course decline. She is further at risk for embolization of vert thrombus to basilar thus also needs to be at facility with endovascular capability. Cont DAPT. [facility] is closest for this. Advised transfer to [facility]. Supervising attending: Dr. Lu. Yoana Crawford MD Vascular Neurology Fellow PGY-5 June 07, 2023 6:57 [facility]11-11-2023 History of Present illness Narrative* Yoana Crawford MD - 06/07/2023 6:51 PM EST Stroke Neurology Plan of Care Paged by regarding transfer request for pt currently residing at [facility].Spoke to Dr. Up for the following information. 83F who presented yesterday for 1 day of feeling off balance and falling to the left with n/v. LKW 06/05. [facility] NAP. 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 OSH neuro advising transfer to higher level of care for thrombectomy capabilities. Currently, her NIHSS = 2 for L sided ataxia. Exam has been stable for past several days. She was loaded w/ ASA and plavix and remains on DAPT. SBP 129/59. On RA. Pt will benefit from transfer to higher level of care for close monitoring of cerebral edema given probable large posterior circulation infarct (do not have images to review, but presumably full PICAinvolvement would represent large infarct) and need for hyperosmolar therapy +/- suboccipital cranishould her neuro course decline. She is further at risk for embolization of vert thrombus to basilar thus also needs to be at facility with endovascular capability. Cont DAPT. [facility] is closest for this. Advised transfer to [facility]. Supervising attending: Dr. Lu. Yoana Crawford MD Vascular Neurology Fellow PGY-5 June 07, 2023 6:57 PM [facility] Discharge instructions Patient Education 02/12/2022 12:59:41 Spinal Anesthesia and Epidural Anesthesia Spinal Anesthesia and Epidural Anesthesia Spinal anesthesia and epidural anesthesia are methods of numbing the body. They are done by injecting numbing medicine (anesthetic) into the back, near the spinal cord. Spinal anesthesia is usually done to numb an area at and below the place where the injection is made. It is often used during surgeries of the pelvis, hips, legs, and lower abdomen. It begins to workalmost immediately. Epidural anesthesia may be done to numb an area above or below the area where the injection is made. It is often used during childbirth and after major abdominal or chest surgery. It begins to work after 10 20 minutes. Tell a health care provider about: Any allergies you have. All medicines you are taking, including vitamins, herbs, eye drops, creams, and fbhz-xcj-eyyxqpi medicines. Any problems you or family members have had with anesthetic medicines. Any blood disorders you have. Any surgeries you have had. Any medical conditions you have. Whether you are or may be . Any recent alcohol, tobacco, or drug use. What are the risks? Generally, this is a safe procedure. However, problems may occur, including: Headache. A drop in blood pressure. In some cases, this can lead to a heart attack or a stroke. Nerve damage. Infection. Allergic reaction to medicines. Seizures. Spinal fluid leak. Bleeding around the injection site. Inability to breathe. If this happens, a tube may be put into your windpipe (trachea) and a machinemay be used to help you breathe until the anesthetic wears off. Long-lasting numbness, pain, or loss of function of body parts. Nausea and vomiting. Dizziness and fainting. Shivering. Itching. What happens before the procedure? Staying hydrated Follow instructions from your health care provider about hydration, which may include: Up to 2 hours before the procedure you may continue to drink clear liquids, such as water, clear fruit juice, black coffee, and plain tea. Eating and drinking restrictions Follow instructions from your health care provider about eating and drinking, which may include: 8 hours before the procedure stop eating heavy meals or foods such as meat, fried foods, or fatty foods. 6 hours before the procedure stop eating light meals or foods, such as toast or cereal. 6 hours before the procedure stop drinking milk or drinks that contain milk. 2 hours before the procedure stop drinking clear liquids. Medicine Ask your health care provider about: Changing or stopping your regular medicines. This is especially important if you are taking diabetes medicines or blood thinners. Changing or stopping your dietary supplements. Taking medicines such as aspirin and ibuprofen. These medicines can thin your blood. Do not take these medicines before your procedure if your health care provider instructs you not to. General instructions Do not use any tobacco products, such as cigarettes, chewing tobacco, and electronic cigarettes, for as long as possible before your procedure. If you need help quitting, ask your health care provider. If you use a sleep apnea device, ask your health care provider whether you should bring it with youon the day of your surgery. Ask your health care provider if you will have to stay overnight at the hospital or clinic. If you will not have to stay overnight: ?Plan to have someone take you home from the hospital or clinic. ?Plan to have a responsible adult care for you for at least 24 hours after you leave the hospital or clinic. This is important. What happens during the procedure? A health care provider will put patches on your chest, a cuff around your arm, or a sensor device on your finger. These will be attached to monitors that allow your health care provider to watch yourblood pressure, pulse, and oxygen levels to make sure that the anesthetic does not cause any problems. An IV tube may be inserted into one of your veins. The tube will be used to give you fluids and medicines throughout the procedure as needed. You may be given a medicine to help you relax (sedative). You will be asked to sit up or to lie on your side with your knees and your chin bent toward your chest. These positions open up the space between the bones in your back, making it easier to inject the medicine. The area of your back where the medicine will be injected will be cleaned. A medicine called a local anesthetic may be injected to numb the area where the spinal or epidural anesthetic will be injected. A needle will be inserted between the bones of your back. While this is being done: ?Continue to breathe normally. ?Stay as still and quiet as you can. ?If you feel a tingling shock or pain going down your leg, tell your health care provider but try not to move. The spinal or epidural anesthetic will be injected. If you receive an epidural anesthetic and need more than one dose, a tiny, flexible tube (catheter)will be placed where the anesthetic was injected. Additional doses will be given through the catheter. If you need pain medicine after the procedure, the catheter will be kept in place. If an epidural catheter has not been placed in your injection site or left there, a small bandage (dressing) will be placed over the injection site. The procedure may vary among health care providers and hospitals. What happens after the procedure? You will need to stay in bed until your health care provider says it safe for you to walk. Your blood pressure, heart rate, breathing rate, and blood oxygen level will be monitored until themedicines you were given have worn off. If you have a catheter, it will be removed when it is no longer needed. Do not drive for 24 hours if you received a sedative. It is common to have nausea and itching. There are medicines that can help with these side effects.It is also common to have: ?Sleepiness. ?Vomiting. ?Numbness or tingling in your legs. ?Trouble urinating. Summary Spinal anesthesia and epidural anesthesia are methods of numbing the body. Tell your health care provider about any allergies or medical problems you have, any problems you have had with anesthetic medicines, any blood disorders you have, and whether you are or may be . If you use a sleep apnea device, ask your health care provider whether you should bring it with youon the day of your surgery. The spinal or epidural anesthetic will be injected through the space between the bones in your back. Do not drive for 24 hours if you received a sedative. This information is not intended to replace advice given to you by your health care provider. Make sure you discuss any questions you have with your health care provider. Document Released: 10/03/2004 Document Revised: 01/03/2020 Document Reviewed: 11/04/2016 [employer] Patient Education 2020 [employer] 02/12/2022 12:57:46 Total Knee Replacement, Care After Total Knee Replacement, Care After This sheet gives you information about how to care for yourself after your procedure. Your health care provider may also give you more specific instructions. If you have problems or questions, contact your health care provider. What can I expect after the procedure? After the procedure, it is common to have: Pain. Swelling. A small amount of blood or clear fluid coming from your incision. Limited range of motion. Follow these instructions at home: Medicines Take fbfc-fgl-qmlauri and prescription medicines only as told by your health care provider. If you were prescribed a blood thinner (anticoagulant), take it as told by your health care provider. Ask your health care provider if the medicine prescribed to you: ?Requires you to avoid driving or using heavy machinery. ?Can cause constipation. You may need to take actions to prevent or treat constipation, such as: ?Drink enough fluid to keep your urine pale yellow. ?Take dred-lel-pismuqf or prescription medicines. ?Eat foods that are high in fiber, such as beans, whole grains, and fresh fruits and vegetables. ?Limit foods that are high in fat and processed sugars, such as fried or sweet foods. Bathing Do not take baths, swim, or use a hot tub until your health care provider approves. Ask your healthcare provider if you may take showers. You may only be allowed to take sponge baths. Keep your bandage (dressing) dry until your health care provider says it can be removed. Incision care and drain care Follow instructions from your health care provider about how to take care of your incision. Make sure you: ?Wash your hands with soap and water before and after you change your dressing. If soap and water are not available, use hand rope machine setter. ?Change your dressing as told by your health care provider. ?Leave stitches (sutures), skin glue, or adhesive strips in place. These skin closures may need to stay in place for 2 weeks or longer. If adhesive strip edges start to loosen and curl up, you may trim the loose edges. Do not remove adhesive strips completely unless your health care provider tells you to do that. Check your incision area and drain site every day for signs of infection. Check for: ?More redness, swelling, or pain. ?More fluid or blood. ?Warmth. ?Pus or a bad smell. If you have a drain, follow instructions from your health care provider about caring for it. Managing pain, stiffness, and swelling If directed, put ice on your knee. ?Put ice in a plastic bag or use the icing device (cold flow pad or cryocuff) that you were given. Follow instructions from your health care provider about how to use the icing device. ?Place a towel between your skin and the bag or between your skin and the icing device. ?Leave the ice on for 20 minutes, 2 3 times per day. If directed, apply heat to the affected area before you exercise. Use the heat source that your health care provider recommends, such as a moist heat pack or a heating pad. ?Place a towel between your skin and the heat source. ?Leave the heat on for 20 30 minutes. ?Remove the heat if your skin turns bright red. This is especially important if you are unable to feel pain, heat, or cold. You may have a greater risk of getting burned. Move your toes often to avoid stiffness and to lessen swelling. Raise (elevate) your leg above the level of your heart while you are sitting or lying down. ?Use several pillows to keep your leg straight. ?Do not put a pillow just under the knee. If the knee is bent for a long time, this may lead to stiffness. Wear elastic knee support as told by your health care provider. Activity Rest as told by your health care provider. Avoid sitting for a long time without moving. Get up to take short walks every 1 2 hours. This is important to improve blood flow and breathing. Ask for help if you feel weak or unsteady. Ask your health care provider what activities are safe for you. Avoid high-impact activities, including running, jumping rope, and jumping jacks. Do not play contact sports until your health care provider approves. Do exercises as told by your physical therapist. If you have been sent home with a continuous passive motion machine, use it as told by your health care provider. Safety Do not use your leg to support your body weight until your health care provider approves. Use crutches or a walker as told by your health care provider. Do not drive until your health care provider approves. Ask your health care provider when it is safe to drive. General instructions Do not use any products that contain nicotine or tobacco, such as cigarettes, e- cigarettes, and chewing tobacco. These can delay healing after surgery. If you need help quitting, ask your health careprovider. Wear compression stockings as told by your health care provider. Tell your health care provider if you plan to have dental work. Also: ?Tell your dentist about your joint replacement. ?Ask your health care provider if there are any special instructions you need to follow before having dental care and routine cleanings. Keep all follow-up visits as told by your health care provider. This is important. Contact a health care provider if you have: More redness, swelling, or pain around your incision or drain. More fluid or blood coming from your incision or drain. Pus or a bad smell coming from your incision or drain. Warmth on your incision or drain site. A fever. An incision that breaks open. Knee pain that does not go away. Range of motion in your knee that is getting worse. A prosthesis that feels loose. Get help right away if you have: Pain or swelling in your calf or thigh. Shortness of breath or difficulty breathing. Chest pain. Summary After the procedure, it is common to have pain and swelling, blood or fluid coming from your incision, and limited range of motion. Follow instructions from your health care provider about how to take care of your incision. Use crutches or a walker as told by your health care provider. If you were prescribed a blood thinner (anticoagulant), take it as told by your health care provider. Keep all follow-up visits as told by your health care provider. This is important. This information is not intended to replace advice given to you by your health care provider. Make sure you discuss any questions you have with your health care provider. Document Released: 01/31/2006 Document Revised: 11/22/2019 Document Reviewed: 02/25/2019 [employer] Patient Education 2020 [employer]. Follow Up Care 01/15/2022 07:38:49 With:DISHA GLOVER PA-C, Orthopedic Address: [facility] [address] [place] [address]- When:02/28/2022 [facility] 07-19-2022 Summary of episode note Discharge Instructions Thank you for allowing [facility] to assist you with your healthcare needs. The following is importantdischarge information regarding your hospital visit. Your Care Team MITUL SCHAFFER MD What to do next Scheduled Follow-Up Appointments Appointment Type When Where Contact InformationCV Procedure - AOH Echo 06/27/2022 09:00 AM [facility] Radiology CV OV 08/01/2022 10:00 AM EST [facility] App[facility] Follow Up with DISHA GLOVER PA-C, Orthopedic When 02/28/2022 03:15 AM EDT Where: [facility] [address] [id number]- The Following Activity and Diet Have Been Ordered for You No qualifying data available. No qualifying data available. The Following Equipment Has Been Ordered for You No qualifying data available. The Following Treatments Have Been Ordered for You Discharge Labs No qualifying data available. Discharge Radiology No qualifying data available. Other Therapies No qualifying data available. Post Acute Orders No qualifying data available. Someone Will Contact You Regarding These Home Health Referrals No home referrals have been ordered for you. No one will call you. Allergies NKA Medications Please ask your primary doctor or pharmacist before taking any other medication not listed, including over the counter drugs, herbal medications, vitamins and or supplements as they may interact withyour home medications. What How Much When Instructions Last Dose Unchanged aspirin (aspirin 81 mg oral delayed release tablet) 1 tab(s) by mouth Every day Please take this list to your next doctor s visit. Bring all medications you take, including over the counter medications, herbals and other supplements with you to your doctor s visit. Patients and families are reminded to discard old lists and to update any records with all medication providers or retail pharmacies. Medication Leaflets oxycodone (ox i KOE done) Oxaydo, OxyCONTIN, Oxyfast, OxyIR, Roxicodone, Xtampza ER What is the most important information I should know about oxycodone? MISUSE OF OPIOID MEDICINE CAN CAUSE ADDICTION, OVERDOSE, OR . Keep the medication in a place where others cannot get to it. Taking opioid medicine during may cause life-threatening withdrawal symptoms in the . Fatal side effects can occur if you use opioid medicine with alcohol, or with other drugs that cause drowsiness or slow your breathing. What is oxycodone? Oxycodone is an opioid pain medication used to treat moderate to severe pain. The extended-release form of oxycodone is for hctgrc-abf-rwqme treatment of pain and should not be used on an as-needed basis for pain. Oxycodone may also be used for purposes not listed in this medication guide. What should I discuss with my healthcare provider before using oxycodone? You should not use oxycodone if you are allergic to it, or if you have: severe asthma or breathing problems; or a blockage in your stomach or intestines. You should not use oxycodone unless you are already using a similar opioid medicine and are tolerant to it. Most brands of oxycodone are not approved for use in people under 18. OxyContin should not be givento a child younger than 11 years old. Tell your doctor if you have ever had: breathing problems, sleep apnea; a head injury, or seizures; drug or alcohol addiction, or mental illness; liver or kidney disease; urination problems; or problems with your gallbladder, pancreas, or thyroid. If you use opioid medicine while you are , your baby could become dependent on the drug. This can cause life-threatening withdrawal symptoms in the baby after it is born. Babies born dependent on opioids may need medical treatment for several weeks. Ask a doctor before using opioid medicine if you are . Tell your doctor if you notice severe drowsiness or slow breathing in the nursing baby. How should I use oxycodone? Follow the directions on your prescription label and read all medication guides. Never use oxycodone in larger amounts, or for longer than prescribed. Tell your doctor if you feel an increased urge to take more of this medicine. Never share opioid medicine with another person, especially someone with a history of drug abuse oraddiction. MISUSE CAN CAUSE ADDICTION, OVERDOSE, OR . Keep the medication in a place where others cannot get to it. Selling or giving away opioid medicine is against the law. Stop taking all other qeorpk-txe-jnuqx opioid pain medicines when you start taking extended-releaseoxycodone. Take oxycodone with food. Swallow the capsule or tablet whole to avoid exposure to a potentially fatal overdose. Do not crush, chew, break, open, or dissolve. If you cannot swallow a capsule whole, open it and sprinkle the medicine into a spoonful of puddingor applesauce. Swallow the mixture right away without chewing. Do not save it for later use. Never crush or break an oxycodone pill to inhale the powder or mix it into a liquid to inject the drug into your vein. This can cause in . Measure liquid medicine carefully. Use the dosing syringe provided, or use a medicine dose-measuring device (not a kitchen spoon). You should not stop using oxycodone suddenly. Follow your doctor's instructions about tapering yourdose. Store at room temperature, away from heat, moisture, and light. Keep track of your medicine. Oxycodone is a drug of abuse and you should be aware if anyone is using your medicine improperly or without a prescription. Do not keep leftover opioid medication. Just one dose can cause in someone using this medicine accidentally or improperly. Ask your pharmacist where to locate a drug take-back disposal program.If there is no take-back program, flush the unused medicine down the toilet. What happens if I miss a dose? Since oxycodone is used for pain, you are not likely to miss a dose. Skip any missed dose if it is almost time for your next dose. Do not use two doses at one time. What happens if I overdose? Seek emergency medical attention or call the Poison Help line at . An opioid overdosecan be fatal, especially in a child or other person using the medicine without a prescription. Overdose symptoms may include severe drowsiness, pinpoint pupils, slow breathing, or no breathing. Your doctor may recommend you get naloxone (a medicine to reverse an opioid overdose) and keep it with you at all times. A person caring for you can give the naloxone if you stop breathing or don't wake up. Your caregiver must still get emergency medical help and may need to perform CPR (cardiopulmonary resuscitation) on you while waiting for help to arrive. Anyone can buy naloxone from a pharmacy or local health department. Make sure any person caring foryou knows where you keep naloxone and how to use it. What should I avoid while using oxycodone? Do not drink alcohol. Dangerous side effects or could occur. Avoid driving or operating machinery until you know how oxycodone will affect you. Dizziness or severe drowsiness can cause falls or other accidents. Avoid medication errors. Always check the brand and strength of oxycodone you get from the pharmacy. What are the possible side effects of oxycodone? Get emergency medical help if you have signs of an allergic reaction: hives; difficult breathing; swelling of your face, lips, tongue, or throat. Opioid medicine can slow or stop your breathing, and may occur. A person caring for you should give naloxone and/or seek emergency medical attention if you have slow breathing with long pauses,blue colored lips, or if you are hard to wake up. Call your doctor at once if you have: noisy breathing, sighing, shallow breathing, breathing that stops during sleep; a slow heart rate or weak pulse; a light-headed feeling, like you might pass out; confusion, unusual thoughts or behavior; seizure (convulsions); low cortisol levels-- nausea, vomiting, loss of appetite, dizziness, worsening tiredness or weakness; or high levels of serotonin in the body--agitation, hallucinations, fever, sweating, shivering, fast heart rate, muscle stiffness, twitching, loss of coordination, nausea, vomiting, diarrhea. Serious breathing problems may be more likely in older adults and in those who are debilitated or have wasting syndrome or chronic breathing disorders. Common side effects may include: drowsiness, headache, dizziness, tiredness; or constipation, stomach pain, nausea, vomiting. This is not a complete list of side effects and others may occur. Call your doctor for medical advice about side effects. You may report side effects to FDA at 8-347-OOX-9544. What other drugs will affect oxycodone? You may have breathing problems or withdrawal symptoms if you start or stop taking certain other medicines. Tell your doctor if you also use an antibiotic, antifungal medication, heart or blood pressure medication, seizure medication, or medicine to treat HIV or hepatitis C. Opioid medication can interact with many other drugs and cause dangerous side effects or . Be sure your doctor knows if you also use: cold or allergy medicines, bronchodilator asthma/COPD medication, or a diuretic ('water pill'); medicines for motion sickness, irritable bowel syndrome, or overactive bladder; other opioids--opioid pain medicine or prescription cough medicine; a sedative like Valium--diazepam, alprazolam, lorazepam, Xanax, Klonopin, Versed, and others; drugs that make you sleepy or slow your breathing--a sleeping pill, muscle relaxer, medicine to treat mood disorders or mental illness; or drugs that affect serotonin levels in your body--a stimulant, or medicine for depression, Parkinson's disease, migraine headaches, serious infections, or nausea and vomiting. This list is not complete and many other drugs may affect oxycodone. This includes prescription yrznyxn-icc-ranbqrw medicines, vitamins, and herbal products. Not all possible drug interactions are listed here. Where can I get more information? Your pharmacist can provide more information about oxycodone. Remember, keep this and all other medicines out of the reach of children, never share your medicines with others, and use this medication only for the indication prescribed. Every effort has been made to ensure that the information provided by [employer]. ('[employer]') is accurate, up-to-date, and complete, but no guarantee is made to that effect. Drug information contained herein may be time sensitive. [employer] information has been compiled for use by healthcare practitioners and consumers in the [place] and therefore [employer] does not warrant that uses outside of the [place] are appropriate, unless specifically indicated otherwise. [employer] drug information does not endorse drugs, diagnose patients or recommend therapy. [employer] drug information isan informational resource designed to assist licensed healthcare practitioners in caring for their p atients and/or to serve consumers viewing this service as a supplement to, and not a substitute for, the expertise, skill, knowledge and judgment of healthcare practitioners. The absence of a warningfor a given drug or drug combination in no way should be construed to indicate that the drug or drug combination is safe, effective or appropriate for any given patient. [employer] does not assume any responsibility for any aspect of healthcare administered with the aid of information [employer] provides. The information contained herein is not intended to cover all possible uses, directions, precautions, warnings, drug interactions, allergic reactions, or adverse effects. If you have questions about the drugs you are taking, check with your doctor, nurse or pharmacist. Copyright 2682-6342 [employer]. Version: 14.02. Revision Date: 08/24/2020. Education Materials Spinal Anesthesia and Epidural Anesthesia Spinal anesthesia and epidural anesthesia are methods of numbing the body. They are done by injecting numbing medicine (anesthetic) into the back, near the spinal cord. Spinal anesthesia is usually done to numb an area at and below the place where the injection is made. It is often used during surgeries of the pelvis, hips, legs, and lower abdomen. It begins to workalmost immediately. Epidural anesthesia may be done to numb an area above or below the area where the injection is made. It is often used during childbirth and after major abdominal or chest surgery. It begins to work after 10 20 minutes. Tell a health care provider about: Any allergies you have. All medicines you are taking, including vitamins, herbs, eye drops, creams, and vvso-ctx-zlelcnw medicines. Any problems you or family members have had with anesthetic medicines. Any blood disorders you have. Any surgeries you have had. Any medical conditions you have. Whether you are or may be . Any recent alcohol, tobacco, or drug use. What are the risks? Generally, this is a safe procedure. However, problems may occur, including: Headache. A drop in blood pressure. In some cases, this can lead to a heart attack or a stroke. Nerve damage. Infection. Allergic reaction to medicines. Seizures. Spinal fluid leak. Bleeding around the injection site. Inability to breathe. If this happens, a tube may be put into your windpipe (trachea) and a machinemay be used to help you breathe until the anesthetic wears off. Long-lasting numbness, pain, or loss of function of body parts. Nausea and vomiting. Dizziness and fainting. Shivering. Itching. What happens before the procedure? Staying hydrated Follow instructions from your health care provider about hydration, which may include: Up to 2 hours before the procedure you may continue to drink clear liquids, such as water, clear fruit juice, black coffee, and plain tea. Eating and drinking restrictions Follow instructions from your health care provider about eating and drinking, which may include: 8 hours before the procedure stop eating heavy meals or foods such as meat, fried foods, or fatty foods. 6 hours before the procedure stop eating light meals or foods, such as toast or cereal. 6 hours before the procedure stop drinking milk or drinks that contain milk. 2 hours before the procedure stop drinking clear liquids. Medicine Ask your health care provider about: Changing or stopping your regular medicines. This is especially important if you are taking diabetes medicines or blood thinners. Changing or stopping your dietary supplements. Taking medicines such as aspirin and ibuprofen. These medicines can thin your blood. Do not take these medicines before your procedure if your health care provider instructs you not to. General instructions Do not use any tobacco products, such as cigarettes, chewing tobacco, and electronic cigarettes, for as long as possible before your procedure. If you need help quitting, ask your health care provider. If you use a sleep apnea device, ask your health care provider whether you should bring it with youon the day of your surgery. Ask your health care provider if you will have to stay overnight at the hospital or clinic. If you will not have to stay overnight: ? Plan to have someone take you home from the hospital or clinic. ? Plan to have a responsible adult care for you for at least 24 hours after you leave the hospital orclinic. This is important. What happens during the procedure? A health care provider will put patches on your chest, a cuff around your arm, or a sensor device on your finger. These will be attached to monitors that allow your health care provider to watch yourblood pressure, pulse, and oxygen levels to make sure that the anesthetic does not cause any problems. An IV tube may be inserted into one of your veins. The tube will be used to give you fluids and medicines throughout the procedure as needed. You may be given a medicine to help you relax (sedative). You will be asked to sit up or to lie on your side with your knees and your chin bent toward your chest. These positions open up the space between the bones in your back, making it easier to inject the medicine. The area of your back where the medicine will be injected will be cleaned. A medicine called a local anesthetic may be injected to numb the area where the spinal or epidural anesthetic will be injected. A needle will be inserted between the bones of your back. While this is being done: ? Continue to breathe normally. ? Stay as still and quiet as you can. ? If you feel a tingling shock or pain going down your leg, tell your health care provider but try not to move. The spinal or epidural anesthetic will be injected. If you receive an epidural anesthetic and need more than one dose, a tiny, flexible tube (catheter)will be placed where the anesthetic was injected. Additional doses will be given through the catheter. If you need pain medicine after the procedure, the catheter will be kept in place. If an epidural catheter has not been placed in your injection site or left there, a small bandage (dressing) will be placed over the injection site. The procedure may vary among health care providers and hospitals. What happens after the procedure? You will need to stay in bed until your health care provider says it safe for you to walk. Your blood pressure, heart rate, breathing rate, and blood oxygen level will be monitored until themedicines you were given have worn off. If you have a catheter, it will be removed when it is no longer needed. Do not drive for 24 hours if you received a sedative. It is common to have nausea and itching. There are medicines that can help with these side effects.It is also common to have: ? Sleepiness. ? Vomiting. ? Numbness or tingling in your legs. ? Trouble urinating. Summary Spinal anesthesia and epidural anesthesia are methods of numbing the body. Tell your health care provider about any allergies or medical problems you have, any problems you have had with anesthetic medicines, any blood disorders you have, and whether you are or may be . If you use a sleep apnea device, ask your health care provider whether you should bring it with youon the day of your surgery. The spinal or epidural anesthetic will be injected through the space between the bones in your back. Do not drive for 24 hours if you received a sedative. This information is not intended to replace advice given to you by your health care provider. Make sure you discuss any questions you have with your health care provider. Document Released: 10/03/2004 Document Revised: 01/03/2020 Document Reviewed: 11/04/2016 [employer] Patient Education 2020 [employer]. Total Knee Replacement, Care After This sheet gives you information about how to care for yourself after your procedure. Your health care provider may also give you more specific instructions. If you have problems or questions, contact your health care provider. What can I expect after the procedure? After the procedure, it is common to have: Pain. Swelling. A small amount of blood or clear fluid coming from your incision. Limited range of motion. Follow these instructions at home: Medicines Take uaaj-ugs-mitucvu and prescription medicines only as told by your health care provider. If you were prescribed a blood thinner (anticoagulant), take it as told by your health care provider. Ask your health care provider if the medicine prescribed to you: ? Requires you to avoid driving or using heavy machinery. ? Can cause constipation. You may need to take actions to prevent or treat constipation, such as: ? Drink enough fluid to keep your urine pale yellow. ? Take swhz-hyf-ptkbguv or prescription medicines. ? Eat foods that are high in fiber, such as beans, whole grains, and fresh fruits and vegetables. ? Limit foods that are high in fat and processed sugars, such as fried or sweet foods. Bathing Do not take baths, swim, or use a hot tub until your health care provider approves. Ask your healthcare provider if you may take showers. You may only be allowed to take sponge baths. Keep your bandage (dressing) dry until your health care provider says it can be removed. Incision care and drain care Follow instructions from your health care provider about how to take care of your incision. Make sure you: ? Wash your hands with soap and water before and after you change your dressing. If soap and water are not available, use hand rope machine setter. ? Change your dressing as told by your health care provider. ? Leave stitches (sutures), skin glue, or adhesive strips in place. These skin closures may need to stay in place for 2 weeks or longer. If adhesive strip edges start to loosen and curl up, you may trim the loose edges. Do not remove adhesive strips completely unless your health care provider tells you to do that. Check your incision area and drain site every day for signs of infection. Check for: ? More redness, swelling, or pain. ? More fluid or blood. ? Warmth. ? Pus or a bad smell. If you have a drain, follow instructions from your health care provider about caring for it. Managing pain, stiffness, and swelling If directed, put ice on your knee. ? Put ice in a plastic bag or use the icing device (cold flow pad or cryocuff) that you were given. Follow instructions from your health care provider about how to use the icing device. ? Place a towel between your skin and the bag or between your skin and the icing device. ? Leave the ice on for 20 minutes, 2 3 times per day. If directed, apply heat to the affected area before you exercise. Use the heat source that your health care provider recommends, such as a moist heat pack or a heating pad. ? Place a towel between your skin and the heat source. ? Leave the heat on for 20 30 minutes. ? Remove the heat if your skin turns bright red. This is especially important if you are unable to feel pain, heat, or cold. You may have a greater risk of getting burned. Move your toes often to avoid stiffness and to lessen swelling. Raise (elevate) your leg above the level of your heart while you are sitting or lying down. ? Use several pillows to keep your leg straight. ? Do not put a pillow just under the knee. If the knee is bent for a long time, this may lead to stiffness. Wear elastic knee support as told by your health care provider. Activity Rest as told by your health care provider. Avoid sitting for a long time without moving. Get up to take short walks every 1 2 hours. This is important to improve blood flow and breathing. Ask for help if you feel weak or unsteady. Ask your health care provider what activities are safe for you. Avoid high-impact activities, including running, jumping rope, and jumping jacks. Do not play contact sports until your health care provider approves. Do exercises as told by your physical therapist. If you have been sent home with a continuous passive motion machine, use it as told by your health care provider. Safety Do not use your leg to support your body weight until your health care provider approves. Use crutches or a walker as told by your health care provider. Do not drive until your health care provider approves. Ask your health care provider when it is safe to drive. General instructions Do not use any products that contain nicotine or tobacco, such as cigarettes, e- cigarettes, and chewing tobacco. These can delay healing after surgery. If you need help quitting, ask your health careprovider. Wear compression stockings as told by your health care provider. Tell your health care provider if you plan to have dental work. Also: ? Tell your dentist about your joint replacement. ? Ask your health care provider if there are any special instructions you need to follow before having dental care and routine cleanings. Keep all follow-up visits as told by your health care provider. This is important. Contact a health care provider if you have: More redness, swelling, or pain around your incision or drain. More fluid or blood coming from your incision or drain. Pus or a bad smell coming from your incision or drain. Warmth on your incision or drain site. A fever. An incision that breaks open. Knee pain that does not go away. Range of motion in your knee that is getting worse. A prosthesis that feels loose. Get help right away if you have: Pain or swelling in your calf or thigh. Shortness of breath or difficulty breathing. Chest pain. Summary After the procedure, it is common to have pain and swelling, blood or fluid coming from your incision, and limited range of motion. Follow instructions from your health care provider about how to take care of your incision. Use crutches or a walker as told by your health care provider. If you were prescribed a blood thinner (anticoagulant), take it as told by your health care provider. Keep all follow-up visits as told by your health care provider. This is important. This information is not intended to replace advice given to you by your health care provider. Make sure you discuss any questions you have with your health care provider. Document Released: 01/31/2006 Document Revised: 11/22/2019 Document Reviewed: 02/25/2019 [employer] Patient Education 2020 [employer] Additional Information VACCINATE! IT SAVES LIVES! Members of the community who have not yet received the COVID-19 vaccine and would like to receive it can visit one of [facility] vaccine clinics. There are many vaccine clinic locations within the [facility]. For locations and available times, please visit [email or web address] It is important to note that some COVID mobile vaccine clinics are held outdoors and may be canceled in rainy or stormy conditions. To learn more about pediatric vaccinations (ages 5-11), we invite you to visit the [facility] webpage. [email or web address] learn more about the COVID-19 vaccine, we invite you to visit the [facility] website for a list of frequently asked questions. [email or web address] [facility] Patient Portal Access Instructions: Stay connected with your healthcare team and access your personal medical information anytime with the [facility] Patient Portal.If you would like a full copy of your medical records, please contact the [facility] Medical Records Department, Friday through Friday between 8a.m. and 4:30p.m. Please follow the directions below to access the portal: 1.Access the email account you provided upon registration to the [facility].2.Look for an invitation email from [facility].3.Open the email and access the invitation link: Accept Invitation to [facility].Fill in the required tristan to create your account. Sign into www.[employer] with your username and password that you created in the above steps to stay up to date. You can then view a summary of results, a summary of your visits, and the ability to download your summaries to your computer or send the information securely to a physician. Remember that your healthcare information is confidential, so carefully consider who you will allow to register on the [facility] Patient Portal for access to your information. You can also access the [facility] Patient Portal on the [employer]. Simply click on Health Records under [employer] and then click on the [employer] [facility] logo. HOW TO SAFELY DISPOSE OF PRESCRIPTION MEDICATIONS Please use one of the following methods to safely dispose of your unused medications. 1.Use a drug disposal kit: the drug disposal pouch allows you to safely discard your old and unuseddrugs. Ask your nurse to give you one when you are discharged.2.Visit a local take-back location: Many local pharmacies and police departments have programs that collect old and unwanted prescriptiondrugs. Call your local pharmacy or go to http://Pod Inns.Gradwell/3C5Cc6c to find one close to you.3.Make use of household items: Use cat litter or old coffee grounds to dispose medications if other options arenot available. Mix your drugs with these household products, seal them in an airtight container andthrow it into the garbage. Call [facility]: [phone] to be sure your drugs can be disposed of in this way. Some medicines may require a different approach.4.Never flush your medications down the toilet. IF YOU HAVE BEEN PRESCRIBED AN OPIOID FOR PAIN If you have been prescribed an opioid (such as hydrocodone, oxycodone or morphine), it is critical to understand the possible side effects and risks of opioid pain medications. Even when taken as directed, opioids can have several side effects including: Tolerance, meaning you might need to take more of a medication for the same pain relief. Nausea, vomiting and/or constipation. Sleepiness, dizziness, dry mouth, confusion, depression or itching. Physical dependence, meaning you have withdrawal symptoms when a medication is stopped, can develop within a few days. KNOW YOUR RESPONSIBILITIES It is important to know exactly how much and how often to take the opioid pain medications you are prescribed. Never take opioids in higher amounts or more often than prescribed. Do not combine opioids with alcohol or other drugs that cause drowsiness, such as benzodiazepines, also known as benzos, including diazepam and alprazolam, muscle relaxants or sleep aids. Never sell or share prescription opioids. This is illegal. Store opioids in a secure place and out of reach of others (including children, family, friends and visitors). The last page of this document has been signed and retained as a CHART COPY. Signatures Patient Education Materials Spinal Anesthesia and Epidural Anesthesia Total Knee Replacement, Care After Medication Leaflets oxyCODONE 5 mg oral tablet ( IMMEDIATE release ) My discharge plan and instructions have been reviewed and explained to me and I,LIBAN TRACEY understand my current condition and have read and understand these discharge instructions. I have received a written copy of the plan/instructions. If I have questions, I am aware that I should contact my doctor. Patient/Hide Sorter Signature: Date/Time: Relationship to Patient: Witness Name/Signature: Date/Time: [facility]07-19-2022 Anesthesiology Consult note Patient: LIBAN TRAECY Age: 82 years Sex: Female : 1940 Associated Diagnoses: None Author: HARRIET STEPHENSON APRN-JULISSA Assessment Postanesthesia assessment Vitals: Vital signs from flowsheet : Vital Signs 02/12/2022 10:55 EDT Heart Rate Monitored 89 bpm Respiratory Rate 16 br/min Systolic Blood Pressure NBP 116 mmHg Diastolic Blood Pressure NBP 67 mmHg 02/12/2022 10:15 EDT Heart Rate Monitored 92 bpm Respiratory Rate 16 br/min Systolic Blood Pressure NBP 118 mmHg Diastolic Blood Pressure NBP 64 mmHg 02/12/2022 10:06 EDT Heart Rate Monitored 92 bpm Respiratory Rate 15 br/min Systolic Blood Pressure NBP 121 mmHg Diastolic Blood Pressure NBP 61 mmHg 02/12/2022 9:55 EDT Heart Rate Monitored 87 bpm Respiratory Rate 16 br/min Systolic Blood Pressure NBP 118 mmHg Diastolic Blood Pressure NBP 59 mmHg LOW 02/12/2022 9:47 EDT Heart Rate Monitored 89 bpm Respiratory Rate 16 br/min Systolic Blood Pressure NBP 114 mmHg Diastolic Blood Pressure NBP 60 mmHg 02/12/2022 9:23 EDT Heart Rate Monitored 91 bpm Respiratory Rate 14 br/min Systolic Blood Pressure NBP 113 mmHg Diastolic Blood Pressure NBP 56 mmHg LOW 02/12/2022 9:11 EDT Temperature Temporal Artery 35.8 DegC Heart Rate Monitored 90 bpm Respiratory Rate 16 br/min Systolic Blood Pressure NBP 114 mmHg Diastolic Blood Pressure NBP 62 mmHg 02/12/2022 9:05 EDT Heart Rate Monitored 92 bpm bpm Respiratory Rate 15 br/min br/min Systolic Blood Pressure NBP 76 mmHg mmHg Diastolic Blood Pressure NBP 58 mmHg mmHg 02/12/2022 9:00 EDT Heart Rate Monitored 92 bpm bpm Respiratory Rate 15 br/min br/min Systolic Blood Pressure NBP 102 mmHg mmHg Diastolic Blood Pressure NBP 50 mmHg mmHg 02/12/2022 8:55 EDT Heart Rate Monitored 105 bpm bpm Respiratory Rate 15 br/min br/min Systolic Blood Pressure NBP 104 mmHg mmHg Diastolic Blood Pressure NBP 41 mmHg mmHg 02/12/2022 8:50 EDT Heart Rate Monitored 105 bpm bpm Respiratory Rate 14 br/min br/min Systolic Blood Pressure NBP 101 mmHg mmHg Diastolic Blood Pressure NBP 42 mmHg mmHg 02/12/2022 8:45 EDT Heart Rate Monitored 103 bpm bpm Respiratory Rate 15 br/min br/min Systolic Blood Pressure NBP 110 mmHg mmHg Diastolic Blood Pressure NBP 51 mmHg mmHg 02/12/2022 8:40 EDT Heart Rate Monitored 101 bpm bpm Respiratory Rate 16 br/min br/min Systolic Blood Pressure NBP 119 mmHg mmHg Diastolic Blood Pressure NBP 50 mmHg mmHg 02/12/2022 8:35 EDT Heart Rate Monitored 101 bpm bpm Respiratory Rate 14 br/min br/min Systolic Blood Pressure NBP 98 mmHg mmHg Diastolic Blood Pressure NBP 46 mmHg mmHg 02/12/2022 8:30 EDT Heart Rate Monitored 102 bpm bpm Respiratory Rate 14 br/min br/min Systolic Blood Pressure NBP 94 mmHg mmHg Diastolic Blood Pressure NBP 41 mmHg mmHg 02/12/2022 8:25 EDT Heart Rate Monitored 99 bpm bpm Respiratory Rate 14 br/min br/min Systolic Blood Pressure NBP 97 mmHg mmHg Diastolic Blood Pressure NBP 43 mmHg mmHg 02/12/2022 8:21 EDT Systolic Blood Pressure NBP 116 mmHg mmHg Diastolic Blood Pressure NBP 49 mmHg mmHg 02/12/2022 8:20 EDT Heart Rate Monitored 101 bpm bpm Respiratory Rate 14 br/min br/min 02/12/2022 8:15 EDT Heart Rate Monitored 93 bpm bpm Respiratory Rate 8 br/min br/min Systolic Blood Pressure NBP 85 mmHg mmHg Diastolic Blood Pressure NBP 39 mmHg mmHg 02/12/2022 8:10 EDT Heart Rate Monitored 93 bpm bpm Respiratory Rate 13 br/min br/min Systolic Blood Pressure NBP 87 mmHg mmHg Diastolic Blood Pressure NBP 47 mmHg mmHg 02/12/2022 8:05 EDT Heart Rate Monitored 94 bpm bpm Respiratory Rate 13 br/min br/min Systolic Blood Pressure NBP 95 mmHg mmHg Diastolic Blood Pressure NBP 47 mmHg mmHg 02/12/2022 8:00 EDT Heart Rate Monitored 94 bpm bpm Respiratory Rate 13 br/min br/min Systolic Blood Pressure NBP 91 mmHg mmHg Diastolic Blood Pressure NBP 44 mmHg mmHg 02/12/2022 7:55 EDT Heart Rate Monitored 96 bpm bpm Respiratory Rate 12 br/min br/min Systolic Blood Pressure NBP 95 mmHg mmHg Diastolic Blood Pressure NBP 46 mmHg mmHg 02/12/2022 7:50 EDT Heart Rate Monitored 97 bpm bpm Respiratory Rate 12 br/min br/min Systolic Blood Pressure NBP 101 mmHg mmHg Diastolic Blood Pressure NBP 45 mmHg mmHg 02/12/2022 7:45 EDT Heart Rate Monitored 92 bpm bpm Respiratory Rate 12 br/min br/min Systolic Blood Pressure NBP 112 mmHg mmHg Diastolic Blood Pressure NBP 56 mmHg mmHg 02/12/2022 7:40 EDT Heart Rate Monitored 91 bpm bpm Respiratory Rate 12 br/min br/min Systolic Blood Pressure NBP 87 mmHg mmHg Diastolic Blood Pressure NBP 48 mmHg mmHg 02/12/2022 7:35 EDT Heart Rate Monitored 98 bpm bpm Respiratory Rate 11 br/min br/min Systolic Blood Pressure NBP 99 mmHg mmHg Diastolic Blood Pressure NBP 57 mmHg mmHg 02/12/2022 7:30 EDT Heart Rate Monitored 82 bpm bpm Respiratory Rate 11 br/min br/min Systolic Blood Pressure NBP 85 mmHg mmHg Diastolic Blood Pressure NBP 46 mmHg mmHg 02/12/2022 7:25 EDT Heart Rate Monitored 90 bpm bpm Respiratory Rate 10 br/min br/min Systolic Blood Pressure NBP 105 mmHg mmHg Diastolic Blood Pressure NBP 53 mmHg mmHg 02/12/2022 7:20 EDT Respiratory Rate 12 br/min br/min (Modified) Systolic Blood Pressure NBP 120 mmHg mmHg Diastolic Blood Pressure NBP 103 mmHg mmHg 02/12/2022 7:15 EDT Respiratory Rate 11 br/min br/min (Modified) Systolic Blood Pressure NBP 146 mmHg mmHg Diastolic Blood Pressure NBP 87 mmHg mmHg 02/12/2022 7:13 EDT Systolic Blood Pressure NBP 136 mmHg mmHg Diastolic Blood Pressure NBP 93 mmHg mmHg 02/12/2022 5:59 EDT Temperature Temporal Artery 36.3 DegC Apical Heart Rate 86 bpm Respiratory Rate 15 br/min Systolic Blood Pressure NBP 139 mmHg Diastolic Blood Pressure NBP 68 mmHg . Mental status: at preoperative baseline. Respiratory function: lungs are clear to auscultation, respirations are non-labored. Respiratory support: none. CV function: Normal rate, Regular rhythm. Cardiovascular support: none. Pain: Self-reports no pain, Post op control No intervention needed. Nausea status: denies nausea. Postoperative hydration status: within normal limits. Digitally Signed by HARRIET STEPHENSON on 02/12/2022 11:01 AM [facility]07-19-2022 Note ORIGINAL EXAMINATION: KNEE 2 radiographic VIEWS LEFT COMPARISON: CT knee January 29, 2022 HISTORY: ORDERING SYSTEM PROVIDED HISTORY: Reason for Exam: Status Post Arthroplasty FINDINGS: Interval left total knee arthroplasty with expected postoperative changes. No unexpected radiopaque foreign bodies. Small suprapatellar effusion. IMPRESSION: Interval left total knee arthroplasty with expected postoperative changes. I have personally reviewed the images of this examination and agree with the resident's findings and interpretation. Interpreted by: Jonathan Montaño MD Preliminary Report By: Patti Morris Electronically signed By Jonathan Montaño MD Dictated Date: 02/12/2022 9:54:11 AM Prelim Date: 02/12/2022 9:56:49 AM Sign Date: 02/12/2022 10:06:48 AM Ordering Provider: [address]19-2022 Note ORIGINAL EXAMINATION: KNEE 2 radiographic VIEWS LEFT COMPARISON: CT knee January 29, 2022 HISTORY: ORDERING SYSTEM PROVIDED HISTORY: Reason for Exam: Status Post Arthroplasty FINDINGS: Interval left total knee arthroplasty with expected postoperative changes. No unexpected radiopaque foreign bodies. Small suprapatellar effusion. IMPRESSION: Interval left total knee arthroplasty with expected postoperative changes. I have personally reviewed the images of this examination and agree with the resident's findings and interpretation. Interpreted by: Jonathan Montaño MD Preliminary Report By: Patti Morris Electronically signed By Jonathan Montaño MD Dictated Date: 02/12/2022 9:54:11 AM Prelim Date: 02/12/2022 9:56:49 AM Sign Date: 02/12/2022 10:06:48 AM Ordering Provider: [place] [id number] Anesthesiology Consult note Patient: LIBAN TRACEY Age: 82 years Sex: Female : 1940 Associated Diagnoses: None Author: HARRIET STEPHENSON APRN-TIRE LAYER Preoperative Information Anesthesia history Patient's history: negative. Family's history: negative. Health Status Allergies: Allergic Reactions (Selected) NKA, Allergies (1) ActiveReaction NKANone Documented Current medications: (Selected) Inpatient Medications Ordered Betadine 10% topical solution: 17.5 mL, mL/hr, Topical (INT), PREOP pharm Decadron: 10 mg, 1 mL, IV Push, AsDirected Kefzol: 2 gram(s), 200 mL/hr, IV Piggyback, PREOP pharm LR 1,000 mL: 20 mL/hr, Intravenous, Stop: 02/12/22 23:59:00 EDT Naropin 25 mg + Toradol 15 mg + EPINEPHrine 1 mg/mL injectable solution 0.3 mg + morphine 2.5 mg...: 25 mg, 5 mL, mL/hr, Other, PREOP pharm Naropin 25 mg + Toradol 15 mg + EPINEPHrine 1 mg/mL injectable solution 0.3 mg + morphine 2.5 mg...: 25 mg, 5 mL, mL/hr, Other, PREOP pharm tranexamic acid 1 g / 100 mL 0.7% NaCl PMX: 1 gram(s), 100 mL, 300 mL/hr, IV Piggyback, AsDirected tranexamic acid 1 g / 100 mL 0.7% NaCl PMX: 1 gram(s), 100 mL, 300 mL/hr, IV Piggyback, AsDirected Documented Medications Documented aspirin 81 mg oral delayed release tablet: 81 mg, 1 tab(s), Oral, Daily, 0 Refill(s), Medications (8) Active Scheduled: (7) ceFAZolin 2 gram(s), IV Piggyback, PREOP pharm dexamethasone 10 mg/mL (1mL) SDV 10 mg 1 mL, IV Push, AsDirected povidone iodine topical 17.5 mL, Topical (INT), PREOP pharm ropivacaine 25 mg + ketorolac 15 mg + epinephrine 0.3 mg + morphine 2.5 mg 25 mg 5 mL, Other, PREOPpharm ropivacaine 25 mg + ketorolac 15 mg + epinephrine 0.3 mg + morphine 2.5 mg 25 mg 5 mL, Other, PREOPpharm tranexamic acid PMX 1 gram(s) 100 mL, IV Piggyback, AsDirected tranexamic acid PMX 1 gram(s) 100 mL, IV Piggyback, AsDirected Continuous: (1) Lactated Ringers 1,000 mL 1,000 mL, Intravenous, 20 mL/hr PRN: (0) Problem list: Medical Basal cell carcinoma / SNOMED CT 0630203 / Confirmed CVA (cerebrovascular accident) / SNOMED CT 541778089 / Confirmed H/O: CVA / SNOMED CT 665858574 / Confirmed Mitral valve stenosis / SNOMED CT 118927138 / Confirmed, Active Problems (5) Arthritis Basal cell carcinoma CVA (cerebrovascular accident) H/O: CVA Mitral valve stenosis Histories Past Medical History: No active or resolved past medical history items have been selected or recorded. Family History: Stroke Mother Sister Procedure history: Echocardiogram ([id number]) on 12/15/2020 at 80 Years. Comments: 03/13/2021 9:47 EDT - Eden Ravi MA (ABR-OE) IMPRESSION : The estimated EF is 60%. severe mitral valve stenosis. Unable to assess diastolic dysfunction. The left atrium is mildly enlarged. Arthroscopy of knee joint ([id number]). Comments: 01/29/2022 10:08 Isabel Jewell RN bilateral Carpal tunnel release ([id number]). Comments: 01/29/2022 10:08 Isabel Jewell RN right Tonsillectomy ([id number]). Social History Social & Psychosocial Habits Alcohol 03/13/2021 Use: Never Substance Abuse 01/29/2022 Use: Never Tobacco 03/13/2021 Tobacco Use: Never (less than 100 in l Home/Environment 01/29/2022 Domestic Concerns None Living situation: Independent Living [facility] Nutrition/Health 02/12/2022 Type of diet: Regular Appetite Excellent Eating Difficulties None . Physical Examination Vital Signs 02/12/2022 5:59 EDT Temperature Temporal Artery 36.3 DegC Apical Heart Rate 86 bpm Respiratory Rate 15 br/min Systolic Blood Pressure NBP 139 mmHg Diastolic Blood Pressure NBP 68 mmHg Vital Signs(last 24 hrs) Last Charted Resp Rate 15 br/min (FEB 12 05:59) CQI500 mmHg (FEB 12 05:59) DBP68 mmHg (FEB 12 05:59) Measurements from flowsheet : Measurements 02/12/2022 5:59 EDT Height 155 cm Height in inches 61 inch(es) Admission Weight 78.2 kg Weight Lbs 172 lb [place] Body Weight 47.85 kg Admission Body Mass Index 32.55 m2 Pain assessment: Pain Assessment 02/12/2022 5:59 EDT Primary Pain Intensity 0 Pain Scale Type 0-10 Pain scale . General: Alert and oriented. Airway: Normal temporomandibular joint mobility. Mallampati classification: II (soft palate, fauces, uvula visible). Dentition Evaluation: Denies loose/chipped teeth. Respiratory: Lungs are clear to auscultation, Respirations are non-labored. Cardiovascular: Normal rate, Regular rhythm. Neurologic: Alert, Oriented. Review / Management Results review: No qualifying data available , Lab results 02/12/2022 6:47 EDT SN - CAt - Case Attendee SN - CAt - Case Attendee SN - CAt - Case Attendee SN - CAt - Case Attendee SN - CAt - Case Attendee SN - CAt - Case Attendee SN - CAt - Case Attendee SN - CAt - Case Attendee SN - CAt - Case Attendee SN - CAt - Case Attendee SN - CAt - Case Attendee SN - CAt - Case Attendee SN - CAt - Case Attendee SN - CAt - Case Attendee SN - CAt - Case Attendee SN - CAt - Case Attendee SN - CAt - Role Performed Primary Surgeon SN - CAt - Role Performed TIRE LAYER SN - CAt - Role Performed Canvas Repairer 1 SN - CAt - Role Performed Amusement Park Entertainer 1 SN - CAt - Role Performed Scrub 1 SN - CAt - Role Performed Physician Chart Clerk SN - CAt - Role Performed X-Ray Tech SN - CAt - Role Performed Rope Tier 02/12/2022 6:45 EDT famotidine 20 mg mg Lactated Ringers Injection 1,000 mL mL 02/12/2022 6:28 EDT citric acid-sodium citrate Not Done: Other (Not Done) 02/12/2022 5:59 EDT Height 155 cm Height in inches 61 inch(es) Admission Weight 78.2 kg Weight Lbs 172 lb [place] Body Weight 47.85 kg Admission Body Mass Index 32.55 m2 Temperature Temporal Artery 36.3 DegC Apical Heart Rate 86 bpm Respiratory Rate 15 br/min Systolic Blood Pressure NBP 139 mmHg Diastolic Blood Pressure NBP 68 mmHg Primary Pain Intensity 0 Pain Scale Type 0-10 Pain scale Monitor Alarms On and Limits Checked Nail Bed Color Casper Capillary Refill < 2 seconds Heart Rhythm Regular All Lobes Breath Sounds Clear Oxygen Therapy Room air Oxygen Saturation 98 % Abdomen Description Non-distended Abdomen Palpation Non-Tender Bowel Sounds All Quadrants Present Urinary Elimination Voiding, no difficulties Skin Temperature Warm Skin Description Normal for ethnicity Skin Integrity Intact Mucous Membrane Color [place] IV Present Present Extremity Movement Equal Characteristics of Speech Clear Level of Consciousness Alert Strength All Extremities Strong Tone All Extremities Normal Sensation All Extremities Intact Affect/Behavior Appropriate, Calm, Cooperative Orientation Oriented x 4 Allergies Yes Consent Form Signed Yes Patient Dressed In Hospital gown CHG Preoperative Wash/Wipe Night before procedure, Day of procedure Preop Nasal Swab Povidone-Iodine CHG Skin Prep Completed for Eligible Surgery History & Physical Update On Chart Yes History & Physical On Chart Yes Obstructive Sleep Apnea Assess Completed Yes Orientation Assessment Oriented x 4 Belongings At Bedside Pants, Shoes, Socks, Sweatshirt, Undergarments, Walker, Other: [facility] Activity Status ADL Awake, Resting Assistive Device None SCD On/Re-applied right knee high Antiembolism Stocking On/Re-applied right thigh high NPO Status Maintained Standard Safety ID band on, Allergy Band on, Call device within reach, Bed in low position, Wheels locked, Upper/Half-Length side-rails up, Phone within reach, personal items within reach Demonstrates Correct Call Light Use Yes Allergy Band on and Verified Yes Patient ID Band on and Verified Yes Implants Verified Yes Pacemaker/AICD Verified Yes Anesthesia Consent Signed Yes Blood Consent Signed Yes Last Fluid Intake 02/11/2022 17:30 Last Food Intake 02/11/2022 17:30 Last Void 02/12/2022 5:00 02/12/2022 5:58 EDT Infectious Disease Symptoms Patient states no symptoms Safety Brochure Information Reviewed Yes [facility] Video Viewed No Teaching Evaluation Verbalizes/Nonverbally indicates understanding Admission Note-Nursing Same Day Patient History (Modified) . Assessment and Plan [place] [employer]hesi[employer] (ASA) physical status classification: Class III. Anesthetic Preoperative Plan Anesthetic technique: Spinal. Regional: Spinal. Postoperative pain management: adductor canal block. Risks discussed: nausea, vomiting, headache, hypotension, allergic reaction, serious complications. Informed consent: signed by patient. Digitally Signed by HARRIET STEPHENSON on 02/12/2022 06:48 AM [facility]07-05-2022 Note ORIGINAL EXAMINATION: CT OF THE LEFT KNEE WITHOUT CONTRAST 01/29/2022 11:25 am TECHNIQUE: CT of the left knee was performed without the administration of intravenous contrast. Multiplanar reformatted images are provided for review. Automated exposure control, iterative reconstruction, and/or weight based adjustment of the mA/kV was utilized to reduce the radiation dose to as low as reasonably achievable. COMPARISON: None. HISTORY ORDERING SYSTEM PROVIDED HISTORY: Reason for Exam: VARUS DEFORMITY NOT ELSEWHERE CLASSIFIED LEFT KNEE FINDINGS: Survey images of the left hip: No aggressive osseous lesion identified Left knee: Advanced tricompartmental degenerative changes noted. A small effusion is identified in the left knee. There is a small Trevino's cyst. Left ankle: No aggressive osseous lesions identified. IMPRESSION: Advanced tricompartmental degenerative changes Small joint effusion and small Trevino's cyst Interpreted by: López Cooper MD Preliminary Report By: López Cooper MD Electronically signed By López Cooper MD Dictated Date: 01/29/2022 12:22:02 PM Prelim Date: 01/29/2022 12:26:30 PM Sign Date: 01/29/2022 12:26:30 PM Ordering Provider: [facility]07-05-2022 Note ORIGINAL EXAMINATION: CT OF THE LEFT KNEE WITHOUT CONTRAST 01/29/2022 11:25 am TECHNIQUE: CT of the left knee was performed without the administration of intravenous contrast. Multiplanar reformatted images are provided for review. Automated exposure control, iterative reconstruction, and/or weight based adjustment of the mA/kV was utilized to reduce the radiation dose to as low as reasonably achievable. COMPARISON: None. HISTORY ORDERING SYSTEM PROVIDED HISTORY: Reason for Exam: VARUS DEFORMITY NOT ELSEWHERE CLASSIFIED LEFT KNEE FINDINGS: Survey images of the left hip: No aggressive osseous lesion identified Left knee: Advanced tricompartmental degenerative changes noted. A small effusion is identified in the left knee. There is a small Trevino's cyst. Left ankle: No aggressive osseous lesions identified. IMPRESSION: Advanced tricompartmental degenerative changes Small joint effusion and small Trevino's cyst Interpreted by: López Cooper MD Preliminary Report By: López Cooper MD Electronically signed By López Cooper MD Dictated Date: 01/29/2022 12:22:02 PM Prelim Date: 01/29/2022 12:26:30 PM Sign Date: 01/29/2022 12:26:30 PM [facility]ments Appointment Date:02/14/2022 08:45:00 AM Scheduled Provider: Location:[facility] Appointment Type:CV OV Appointment Date:06/27/2022 09:00:00 AM Scheduled Provider: Location:[facility] Appointment Type:CV Procedure - AOH Echo Appointment Date:08/01/2022 10:00:00 AM Scheduled Provider: Location:[facility] Appointment Type:CV OV [facility] Evaluation + Plan note Future Appointments Appointment Date:06/27/2022 09:00:00 AM Scheduled Provider: Location:[facility] Appointment Type:CV Procedure - AOH Echo Appointment Date:08/01/2022 10:00:00 AM Scheduled Provider: Location:[facility] Appointment Type:CV OV [facility] Evaluation note* Diagnosis Cerebellar stroke (HCC)- Primary documented in this encounter [facility] course Narrative No data available for this section [facility] Hospital Discharge instructions No data available for this section [facility] Progress note No data available for this section [facility] Summary Purpose Family History No Family History Records FoundNo Family History Records FoundNo Family History Records Found Advance Directives No Advanced Directives Records FoundLatest Code Status on File Code Status Date Activated Date Inactivated Comments DNR-CCA 06/08/2023 5:58 AM 06/11/2023 5:04 PM Question Answer Comments DNR Order Discussed With: Patient State-Approved DNR Identification Code Status History Code Status Date Activated Date Inactivated Comments Full Code 06/07/2023 11:58 PM 06/08/2023 5:58 AM Question Answer Comments Full Code Order Discussed With: Discussion Not Medically Appropriate Additional Source Comments Care Team (unrecognized sect ion and content) Care Team Personnel Name: MITUL SCHAFFER MD Member Role: Primary Care Physician Address: Address: [address] [place] [address]- Care Team Related Persons Name: ZORA HEBERT Care Team Personnel Name: MITUL SCHAFFER MD Member Role: Primary Care Physician Address: Address: [facility] [address] [place] [address]- Care Team Related Persons Name: ZORA HEBERT Care Team Personnel Name: MITUL SCHAFFER MD Member Role: Primary Care Physician Address: Address: [facility] [address] [place] [address]- [place] Care Team Related Persons Name: ZORA HEBERT INFORMATION SOURCE (unrecogn ized section and content) DATE CREATED AUTHOR AUTHOR'S ORGANIZ ATION 06/12/2023 [facility] DATE CREATED AUTHOR AUTHOR'S ORGANIZ ATION [facility] Comments (unrecognize d section and content) In the event this informatio n is protected by the Federal Confidentiality of Alcohol and Drug Abuse Patient Records regulations: The Federal rules restrict any use of the information to criminally investigate or prosecute any alcohol or drug abuse patient.[facility] the event this information is protected by the Federal Confidentiality of Alcohol and Drug Abuse Patient Records regulations: The Federal rules restrict any use of the information to criminally investigate or prosecute any alcohol or drug abuse patient.[facility] Reason for Visit (unrecogniz ed section and content) Referral ID Status Reason Start Date Expiration Date V isits Requested Visits Authorized [id number] New Request 06/13/2023 08/12/2023 FOR RECORDS PERTAINING TO PATIENTS WHO ARE OR HAVE BEEN ENROLLED IN A CHEMICAL DEPENDENCY/SUBSTANCEABUSE PROGRAM, SOME INFORMATION MAY BE OMITTED. This clinical summary was aggregated from multiple sources. Caution should be exercised in using it in the provision of clinical care. This summary normalizes information from multiple sources, and as a consequence, information in this document may materially change the coding, format and clinical context of patient data. In addition, data may be omitted in some cases. CLINICAL DECISIONS SHOULD BE BASED ON THE PRIMARY CLINICAL RECORDS. [employer] provides no warranty or guarantee of the accuracy or completeness of information in this document.
--- NOTE | 2023-08-14 14:04 | MRI_ITS ---
We are attempting to reach an attending provider to discuss findings. An addendum with communication details will be sent when the communication is complete. STUDY: MRI BRAIN WITHOUT CONTRAST REASON FOR EXAM: Female, 83 years old. CVA, LEFT FACIAL DROOP TECHNIQUE: Standardized multiplanar fat and water weighted pulse sequences were obtained. COMPARISON: 06/07/2023, CT earlier today FINDINGS: There is mild cerebral atrophy with widening of the extra-axial spaces and ventricular dilatation. There are a limited number of small white matter hyperintensities, distributed throughout the deep white matter tracts of the cerebral hemispheres, consistent with mild chronic white matter ischemic changes. Encephalomalacia and gliosis in the left hemisphere of the cerebellum in the right parietal lobe consistent with the chronic infarct. Punctate and linear hyperintensities demonstrate a faint restricted diffusion in the periventricular white matter of the right parietal lobe consistent with subacute white matter infarct. Normal T2* images of the brain without demonstrated susceptibility artifact. There is no demonstrated hemosiderin stain. Normal bilateral basal ganglia. Normal thalami. There is no extra-axial fluid accumulation. Normal flow voids within the major intracranial circulation suggesting patency by spin echo criteria. Normal sella turcica, pituitary gland, infundibular stalk, optic chiasm and hypothalamus. Normal tectal plate and pineal gland. Normal midbrain, loretta and medulla. Normal cerebellum. Normal basal cisterns. Normal bilateral temporal bones. Normal bilateral internal auditory canals. There are bilateral ocular lens implants with otherwise normal intraorbital contents. Mucosal thickening and air-fluid levels in the right maxillary and sphenoid sinuses consistent with acute on chronic sinusitis. Normal calvarium and skull base. Normal visualized soft tissue structures. Normal visualized upper cervical spine. MRI/Brain without Contrast IMPRESSION: 1. Involutional changes of the brain, as described above. 2. Subacute infarcts of the periventricular white matter of the right parietal lobe. 3. Acute on chronic right sphenoid and maxillary sinusitis. Electronically Signed: Reid Mendes MD at 18:39 EST ,
--- NOTE | 2023-08-14 16:06 | PCM.HP.STD ---
HPI - General General Date of Admission: 08/14/23 HPI Narrative LIBAN TRACEY, is a 83 F who presents to the hospital 24 hours after what appears to be a stroke. She was very hesitant to come back because she is slightly apathetic about her care. She has had multiple strokes recently her most recent was in May which should be transferred to a tertiary center for the possibility of a thrombus in her vertebral arteries that she had a cerebellar stroke at that time. Wanted mission to the ER today she has noted to have a left facial droop with a slight elevation in her CK secondary to being on the floor for a few hours before her son found her yesterday. She refused to come to the ED yesterday and family made her come in today. She notes that she has been having a cough for several weeks and that has resolved but then also noticed foul-smelling urine though she says it has gotten a little bit better. UA in the ER shows a 500 leukocyte esterase with 2+ bacteria. She was given a dose of Rocephin in the ER [facility] Medical History (Updated 08/14/23 @ 16:[address] Mukul Franco MD) Conjunctivitis, right eye CVA (cerebral vascular accident) History of basal cell carcinoma History of rheumatic fever History of TIA (transient ischemic attack) (12/05/20) Osteoarthritis Secondary pulmonary arterial hypertension Home Medications aspirin 81 mg tablet,delayed release (Adult Aspirin Regimen) 81 mg PO DAILY HEART HEALTH 01/24/21 [History Last Taken 08/13/23] atorvastatin 40 mg tablet 40 mg PO DAILY CHOLESTEROL 08/14/23 [History Last Taken 08/12/23] clopidogrel 75 mg tablet 75 mg PO DAILY BLOOD THINNER 08/14/23 [History Last Taken 08/13/23] multivitamin (Multiple Vitamins tablet) 1 tab PO DAILY SUPPLEMENT 08/14/23 [History Last Taken 08/13/23] Allergy/AdvReac Type Severity Reaction Status Date / Time No Known Allergies Allergy Verified 07/29/23 09:14 Surgical History H/O arthroscopic knee surgery History of carpal tunnel release Social History (Updated 08/14/23 @ 14:48 by Jody Penaloza) household members: none housing: house Smoking Status: Never smoker alcohol intake: never substance use type: does not use ROS Constitutional Constitutional: Denies chills, fatigue, fever(s) or malaise Eyes Eyes: Denies blurry vision ENT HEENT: Denies headache(s) or nasal discharge Cardiovascular Cardiovascular: Denies chest pain, dyspnea on exertion or syncope Respiratory/Chest Respiratory/Chest: Denies cough, shortness of breath at rest or shortness of breath with exertion Gastrointestinal Gastrointestinal: Denies constipation, diarrhea, nausea or vomiting Genitourinary Genitourinary: Denies dysuria Neurologic Neurologic: Reports focal weakness; Denies numbness or tremor(s) Psychiatric Psychiatric: Denies anxiety or depression Vital Signs Vital Signs Vital Signs: 08/14/23 09:13 08/14/23 10:41 08/14/23 12:30 Temperature 97.1 F L Temperature Source Temporal Pulse Rate 96 84 81 Respiratory Rate 19 H 16 16 Blood Pressure 144/65 H 141/70 H 118/54 L Blood Pressure Mean 91 93 75 Blood Pressure Source Blood Pressure Position Blood Pressure Location Pulse Ox 97 100 96 Oxygen Delivery Method Room Air Room Air Room Air 08/14/23 12:51 08/14/23 14:10 Temperature 97.9 F 98 F Temperature Source Oral Pulse Rate 89 90 Respiratory Rate 15 16 Blood Pressure 118/54 L 149/70 H Blood Pressure Mean 75 96 Blood Pressure Source Monitor Blood Pressure Position Semi-Fowlers Blood Pressure Location Right Arm Pulse Ox 99 98 Oxygen Delivery Method Room Air Weight Weight: 163 lb 5.8 oz Body Mass Index (BMI) 30.9 Physical Exam Narrative General: Alert, Oriented x3, Cooperative, No apparent distress HEENT: Atraumatic, PERRLA, EOMI, Normocephalic Oral: Moist Mucosa Neck: Supple, No JVD Lungs: Diminished, Normal air movement, No rhonchi, No wheeze, No rales Cardiovascular: Regular rate, Regular Rhythm, Normal S1, Normal S2, No murmurs Abdomen: Soft, Non Tender, Non-Distended, No Hepato-splenomegaly Extremities: No edema, Capillary Refill Less than 3 Seconds Skin: No rashes, No breakdown Musculoskeletal: No Tenderness to Palpation of Joints or Extremities Neurological: Left facial droop, left upper and left lower extremity weakness Psych/Mental Status: Flat Results Lab / Micro Data 08/14/23 09:53 08/14/23 09:53 Labs: Laboratory Results - last 24 hr 08/14/23 09:53: WBC 9.3, RBC 4.09 L, Hgb 12.2, Hct 38.4, MCV 93.9, MCH 29.8, MCHC 31.8 L, RDW Std Deviation 46.2 H, RDW Coeff of Alfredo 13.5, Plt Count 498 H, MPV 9.3, Immature Gran % (Auto) 0.200, Neut % (Auto) 78.9 H, Lymph % (Auto) 14.2 L, [place] % (Auto) 5.9, Eos % (Auto) 0.4, Baso % (Auto) 0.4, Absolute Neuts (auto) 7.4, Absolute Lymphs (auto) 1.33, Nucleated RBC % 0, PT 15.1 H, INR 1.2, APTT 29.5, Sodium 143, Potassium 3.9, Chloride 108 H, Carbon Dioxide 32.0, Anion Gap 3 L, BUN 15, Creatinine 1.02, Estim Creat Clear Calc 37.99, Est GFR (MDRD) Af Amer 66, Est GFR (MDRD) Non-Af 55 L, BUN/Creatinine Ratio 14.7, Glucose 118 H, Calcium 9.1, Total Creatine Kinase 581 H 08/14/23 11:26: Urine Color Straw, Urine Clarity Sl. Cloudy, Urine pH 8.0, Ur Specific [place] 1.015, Urine Protein Negative, Urine Glucose (UA) Normal, Urine Ketones Negative, Urine Occult Blood Negative, Urine Nitrite Negative, Urine Bilirubin Negative, Urine Urobilinogen Normal, Ur Leukocyte Esterase 500 H, Urine RBC 0 SEEN, Urine WBC 10-25 SEEN, Ur Squamous Epith Cells 5-10 SEEN, Urine Bacteria 2+, Urine Mucus 0 SEEN Rhythm Strip Rhythm Strip: Sinus Rhythm Rate: 90 Ectopy: None Imagaing Radiology Impression Brain CT 08/14/23 09:40 IMPRESSION: No acute intracranial process. Foci of encephalomalacia within the right frontal lobe and left cerebellum consistent with old infarcts. Partial opacification of the frontal, ethmoid, sphenoid and right maxillary sinuses consistent with sinusitis. Electronically Signed: Minnie Loo MD at 10:37 EST , Chest X-Ray 08/14/23 09:41 IMPRESSION: Right basilar atelectasis and/or pneumonia, recommend follow-up chest radiograph in 6-8 weeks to assess for resolution. Electronically Signed: Minnie Loo MD at 10:43 EST , Head CTA 08/14/23 10:52 IMPRESSION: 1. No evidence of intracranial great vessel stenosis. 2. Persistent nonvisualization of the left PICA. Electronically Signed: Tanmay Kurtz MD at 12:00 EST , Assessment & Plan Assessment/Plan (1) CVA (cerebral vascular accident): PLAN: Plan 1. CVA with possible UTI ? She has had 2 previous strokes 1 cerebellar is the most recent and had to be transferred to a tertiary center as there is a concern for vertebral artery thrombus though family states no intervention was done the outside hospital and after discharge she had no residual deficits ?With her other stroke she did not have any left facial droop or left-sided weakness ? She is already on aspirin and Plavix as well as Lipitor will continue with telemetry ? Will obtain an MRI ? Will discuss with her in the next day or 2 about possible medications for mental health as she appears withdrawn and apathetic about her wellbeing and her own care ? Permissive hypertension ? Will not repeat an echo she had 1 in May with a normal EF of 65% and severe mitral valve stenosis, her PASP was 45 to 50 mmHg and the bubble study was negative ? Urine culture is pending will continue with Rocephin as well as IV fluids for mildly elevated CK DVT: SCDs 75 minutes was spent on direct patient care, including documentation as well as chart review and collaboration with colleagues Charges/Coding Visit Charges Inpatient E&M: 96310 Init Hosp L3
[2023-08-14] MEDS: 0.9% Normal Saline (1000mL) 1,000 ML 75 ML IV (18:23)
[2023-08-14] MEDS: Atorvastatin Calcium 40 MG Tablet PO (21:58)
[2023-08-15] VITALS (7 sets, daily range): BP systolic 127–145; BP diastolic 64–70; PULSE 80–89; RESP 16–18; TEMP 36.7–37; O2SAT 94–97; BMI 30.9
[2023-08-15] MEDS: 0.9% Normal Saline (1000mL) 1,000 ML 75 ML IV ×2 (06:54→18:50)
[2023-08-15 07:29] LABS: Absolute Lymphocyte Count 1.54 X10^3/uL (0.83-4.51); Absolute Neutrophil Count 4.2 X10^3/uL (2.0-7.7); Basophil# 0.05 X10^3/uL; Basophil% 0.8 % (0-1); Eosinophil# 0.09 X10^3/uL; Eosinophils% 1.4 % (0-5); Hematocrit 33.3 % (37-47); Hemoglobin 10.9 g/dL (12.0-15.0); Lymphocyte # 1.54 X10^3/ul (0.83-4.51); Lymphocyte % 24.4 % (19-41); Mean Corp Hgb Conc 32.7 g/dL (32-36); Mean Corpuscular Hgb 30.4 pg (27.0-32.0); Mean Corpuscular Volume 92.8 fL (81-99); Mean Platelet Vol. 9.2 fl (6.2-12.0); Monocyte# 0.39 X10^3/uL; Monocyte% 6.2 % (0-10); NRBC Flagged by Analyzer 0 % (0-5); Neutrophil # 4.23 X10^3/uL (2.7-7.7); Neutrophil % 66.9 % (47-70); Platelet Count 419 K/mm3 (150-450); RBC Distribution Width CV 13.8 % (11.6-14.6); RBC Distribution Width SD 47.6 fl (35.1-43.9); Red Blood Count 3.59 M/mm3 (4.2-5.4); White Blood Count 6.3 K/mm3 (4.4-11.0)
[2023-08-15 07:51] LABS: Anion Gap 4 (5-15); BUN 9 mg/dL (7-18); Calcium,Total 8.7 mg/dL (8.5-10.1); Chloride 111 mmol/L (98-107); Cholesterol 146 mg/dL (200); EST Glomerular Filtration Rate 63 mL/min (>60); Est Glom Filt Rate - Afr Amer 77 mL/min (>60); Estimated Creatinine Clearance 42.84 ml/min; Glucose 101 mg/dL (74-106); High Density Lipoprotein 49 mg/dL; Potassium 3.7 mmol/L (3.5-5.1); Sodium Level 142 mmol/L (136-145); Triglycerides 73 mg/dL; Very Low Density Lipoprotein 15 mg/dL (5-40)
[2023-08-15] MEDS: Clopidogrel Bisulfate 75 MG Tablet PO (08:33)
[2023-08-15] MEDS: Aspirin E.C. 81 MG Tablet PO (08:33)
[2023-08-15] MEDS: Ceftriaxone 1 GM/50 ML BAG IV (09:56)
--- NOTE | 2023-08-15 10:50 | PCM.PN.HOSP ---
Subjective Subjective Continues to have a left facial droop and left-sided weakness MRI with subacute right periventricular white matter lesions in the parietal lobe Objective Data Objective Data Vital Signs: Vital Signs Temp Pulse Resp BP Pulse Ox O2 Del Method 98.4 F 87 16 139/69 H 97 Room Air 08/15/23 07:40 08/15/23 07:40 08/15/23 07:40 08/15/23 07:40 08/15/23 07:40 08/15/23 07:40 Oxygen Delivery Method Room Air Weight: 163 lb 5.8 oz Body Mass Index (BMI) 30.9 Intake & Output: Intake and Output for Last 24 Hours 08/14/23 08/15/23 08/16/23 03:59 03:59 03:59 Intake Total 1052.5 / 1052.5 1427.5 / 1427.5 Balance 1052.5 / 1052.5 1427.5 / 1427.5 Lab / Micro Data 08/15/23 07:00 08/15/23 07:00 Labs: Laboratory Results - last 24 hr 08/14/23 11:26: Urine Color Straw, Urine Clarity Sl. Cloudy, Urine pH 8.0, Ur Specific [place] 1.015, Urine Protein Negative, Urine Glucose (UA) Normal, Urine Ketones Negative, Urine Occult Blood Negative, Urine Nitrite Negative, Urine Bilirubin Negative, Urine Urobilinogen Normal, Ur Leukocyte Esterase 500 H, Urine RBC 0 SEEN, Urine WBC 10-25 SEEN, Ur Squamous Epith Cells 5-10 SEEN, Urine Bacteria 2+, Urine Mucus 0 SEEN 08/15/23 07:00: WBC 6.3, RBC 3.59 L, Hgb 10.9 L, Hct 33.3 L, MCV 92.8, MCH 30.4, MCHC 32.7, RDW Std Deviation 47.6 H, RDW Coeff of Alfredo 13.8, Plt Count 419, MPV 9.2, Immature Gran % (Auto) 0.300, Neut % (Auto) 66.9, Lymph % (Auto) 24.4, [place] % (Auto) 6.2, Eos % (Auto) 1.4, Baso % (Auto) 0.8, Absolute Neuts (auto) 4.2, Absolute Lymphs (auto) 1.54, Nucleated RBC % 0, Sodium 142, Potassium 3.7, Chloride 111 H, Carbon Dioxide 27.0, Anion Gap 4 L, BUN 9, Creatinine 0.90, Estim Creat Clear Calc 42.84, Est GFR (MDRD) Af Amer 77, Est GFR (MDRD) Non-Af 63, BUN/Creatinine Ratio 10.0, Glucose 101, Calcium 8.7, Triglycerides 73, Cholesterol 146, LDL Cholesterol 82, VLDL Cholesterol 15, HDL Cholesterol 49 Radiography Diagnostic Testing: Radiology Impression Chest X-Ray 08/14/23 09:41 IMPRESSION: Right basilar atelectasis and/or pneumonia, recommend follow-up chest radiograph in 6-8 weeks to assess for resolution. Electronically Signed: Minnie Loo MD at 10:43 EST , Head CTA 08/14/23 10:52 IMPRESSION: 1. No evidence of intracranial great vessel stenosis. 2. Persistent nonvisualization of the left PICA. Electronically Signed: Tanmay Kurtz MD at 12:00 EST , Brain MRI 08/14/23 14:04 IMPRESSION: 1. Involutional changes of the brain, as described above. 2. Subacute infarcts of the periventricular white matter of the right parietal lobe. 3. Acute on chronic right sphenoid and maxillary sinusitis. Electronically Signed: Reid Meneds MD at 18:39 EST , ADDENDUM: 08/14/23 1857 IMPRESSION: 1. Involutional changes of the brain, as described above. 2. Subacute infarcts of the periventricular white matter of the right parietal lobe. 3. Acute on chronic right sphenoid and maxillary sinusitis. N.B. : The above Results were Read Back by Reid Mendes MD to Jody Penaloza RN, and understanding confirmed on 08/14/2023 18:50:17 (ET). Electronically Signed: Reid Mendes MD at 18:39 EST , Rhythm Strip Rhythm Strip: Sinus Rhythm Rate: 90 Ectopy: None Physical Exam Narrative General: Alert, Oriented x3, Cooperative, No apparent distress HEENT: Atraumatic, PERRLA, EOMI, Normocephalic Oral: Moist Mucosa Neck: Supple, No JVD Lungs: Diminished, Normal air movement, No rhonchi, No wheeze, No rales Cardiovascular: Regular rate, Regular Rhythm, Normal S1, Normal S2, No murmurs Abdomen: Soft, Non Tender, Non-Distended, No Hepato-splenomegaly Extremities: No edema, Capillary Refill Less than 3 Seconds Skin: No rashes, No breakdown Musculoskeletal: No Tenderness to Palpation of Joints or Extremities Neurological: Left facial droop, left upper and left lower extremity weakness Psych/Mental Status: Flat Assessment & Plan Assessment/Plan (1) CVA (cerebral vascular accident): PLAN: Plan 1. CVA with possible UTI ? She has had 2 previous strokes 1 cerebellar is the most recent and had to be transferred to a tertiary center as there is a concern for vertebral artery thrombus though family states no intervention was done the outside hospital and after discharge she had no residual deficits ?With her other stroke she did not have any left facial droop or left-sided weakness ? She is already on aspirin and Plavix as well as Lipitor will continue with telemetry ? MRI with multiple subacute infarcts in the periventricular white matter of the right parietal lobe, will consult [place] [facility] and continue with her antiplatelets ?She was supposed to wear Holter monitor after her last admission after she was transferred to [facility] but that does not appear to have occurred current telemetry does not indicate A-fib however given the presence of multiple infarcts will likely need an event monitor on discharge ? Permissive hypertension ? Will not repeat an echo she had 1 in May with a normal EF of 65% and severe mitral valve stenosis, her PASP was 45 to 50 mmHg and the bubble study was negative ? Urine culture is pending will continue with Rocephin as well as IV fluids for mildly elevated CK DVT: SCDs Charges/Coding Visit Charges Inpatient E&M: 54550 Subs Hosp L2
--- NOTE | 2023-08-15 12:45 | CASEMGMT ---
RN CM Face to Face with patient for initial transition planning/care coordination assessment. RN CM introduced self and role at [facility]. Patient sitting in chair, alert and oriented, family at bedside. Patient willing to participate in assessment and is able to answer all questions appropriately. Care providers, pharmacy, and demographics verified. Therapy is recommending Rehab unit at discharge, patient and family agreeable and prefers [facility] Rehab Unit, declines list. Patient states she has no further needs or concerns at this time. CM to follow for discharge planning needs that may arise. PCP: Krish Specialists: Mango Izquierdo Preferred Pharmacy: [facility] Insurance: [employer] Prescription Benefit: yes Living Will/HPOA: yes, Son Jose LNOK: son, daughters Living Arrangements: Patient lives alone in a single floor condo with 1 step and grab bar to enter. Patient was independent at home. Transportation: self, family DME/HHC: Patient has raised toilet, cane, walker, and grab bars at home. Patient has been to [facility] No previous HHC. Disposition Plan: Rehab unit pending acceptance and precert. Aleja CERVANTES, RN, CM
[2023-08-15] MEDS: Acetaminophen 325 MG Tablet 650 MG PO (13:00)
--- NOTE | 2023-08-15 15:15 | CASEMGMT ---
SW was informed patient would like [facility] Acute Rehab. CHERELLE spoke with Noelle and there are no beds available in either unit. SW will talk with patient and provide her with lists. Caro STOKES
--- NOTE | 2023-08-15 16:06 | CASEMGMT ---
Social Work SW spoke w/pt and daughter Nicol in room in regard to discharge plan. SW explained to them that TCU and rehab are full, so they will need to choose some additional options for pt. SW gave pt's daughter Nicol a list of both alf facilities and rehab units from [facility] in network w/pt's insurance, in pt's preferred geographic area and complete w/quality and resource use data. Daughter Nicol is not certain. She states pt has been to [facility] in the past but did not think the OT there was helpful. She states will need to review the lists w/pt's other children tonight. SW did review the difference between rehab and SNF level of care. SW explained will be here tomorrow, asked her to call SW with other choices. Pt will be here through the weekend. SW explained we can check again Friday about TCU/Rehab, but did ask her to choose other options as it is uncertain whether or not beds will become available, and pt cannot stay here waiting for a rehab/TCU bed. Daughter states understanding. SW will follow up w/daughter regarding choices and make referrals as appropriate. ARIEL Lewis
[2023-08-15] MEDS: Ensure Plus High Protein 120 ML LIQUID PO (18:47)
--- NOTE | 2023-08-15 18:55 | STROKE.CONS ---
Assessment and Plan: Stroke Assessment/Plan LIBAN TRACEY is a 83 F with a history of stroke who presents for evaluation of left facial droop, left hemiparesis, slurred speech for the last 3 days. She is on DAPT at home and compliant. Not a candidate for thrombolysis as out of the window or thrombectomy as no LVO Neurological examination shows left hemiparesis. Neuroimaging shows CT: Foci of encephalomalacia within the right frontal lobe and left cerebellum s/o old strokes CTA: No LVO, left COUNTER HELPER non visualized. MRI: Subacute infarcts of the periventricular white matter of the right parietal lobe. Recent TTE: EF 65% Recurrent stroke - cryptogenic in etiology Recommend Continue DAPT Continue statin to keep LDL <70 Please obtain HbA1C 30 day Event monitor upon discharge for Afib. PT,OT evaluation Speech and swallow eval Permissive hypertension in acute phase and needs long term acute care registered nurse normal BP control thanks for the consult. i spent 72 min in evaluation and management of this patient HPI Consult Data Date of Consult: 08/15/23 HPI Narrative HPI Narrative: LIBAN TRACEY, is a 83 F who presents who presents with strokelike symptoms. three days ago she attempted to walked to the bathroom to try to take a shower when her left leg was weak and gave out on her. She was on the floor in her bathroom until around 4 PM when her son came over and helped her back up into the recliner. She was noted to have left facial droop when he checked on her at 4 PM and was weak on the left side. She had worsening of her symptoms yesterady morning and was ultimately brought to the emergency room. She history of 2 prior strokes (no residual deficits, 1 cerebellar in 1 in the right frontal territory for family). Patient was home alone. Not a candidate for thrombolysis as outside the time window. [facility] Medical History (Updated 08/14/23 @ 16:[address] Mukul Franco MD) Conjunctivitis, right eye CVA (cerebral vascular accident) History of basal cell carcinoma History of rheumatic fever History of TIA (transient ischemic attack) (12/05/20) Osteoarthritis Secondary pulmonary arterial hypertension Home Medications aspirin 81 mg tablet,delayed release (Adult Aspirin Regimen) 81 mg PO DAILY HEART HEALTH 01/24/21 [History Last Taken 08/13/23] atorvastatin 40 mg tablet 40 mg PO DAILY CHOLESTEROL 08/14/23 [History Last Taken 08/12/23] clopidogrel 75 mg tablet 75 mg PO DAILY BLOOD THINNER 08/14/23 [History Last Taken 08/13/23] multivitamin (Multiple Vitamins tablet) 1 tab PO DAILY SUPPLEMENT 08/14/23 [History Last Taken 08/13/23] Allergy/AdvReac Type Severity Reaction Status Date / Time No Known Allergies Allergy Verified 07/29/23 09:14 Surgical History H/O arthroscopic knee surgery History of carpal tunnel release Social History (Updated 08/14/23 @ 14:48 by Jody Penaloza) household members: none housing: house Smoking Status: Unknown if ever smoked alcohol intake: never substance use type: does not use Vital Signs Vital Signs Vital Signs: 08/14/23 22:00 08/14/23 22:00 08/14/23 22:00 Temperature 97.8 F 97.8 F Temperature Source Temporal Temporal Pulse Rate 90 90 Pulse Strength Weak (1+) Respiratory Rate 18 18 Respiratory Effort Respiratory Depth Respiratory Pattern Blood Pressure 124/84 H 124/84 H Blood Pressure Mean 97 97 Blood Pressure Source Monitor Monitor Blood Pressure Position Semi-Fowlers Semi-Fowlers Blood Pressure Location Right Arm Right Arm Pulse Ox 95 95 Oxygen Delivery Method Room Air Room Air 08/14/23 22:00 08/15/23 02:00 08/15/23 02:00 Temperature 98.0 F 98.0 F Temperature Source Temporal Temporal Pulse Rate 80 80 Pulse Strength Respiratory Rate 18 18 Respiratory Effort Normal Non-Labored Respiratory Depth Normal Respiratory Pattern Normal Blood Pressure 141/70 H 141/70 H Blood Pressure Mean 93 93 Blood Pressure Source Monitor Monitor Blood Pressure Position Semi-Fowlers Semi-Fowlers Blood Pressure Location Right Arm Right Arm Pulse Ox 97 97 Oxygen Delivery Method Room Air Room Air Room Air 08/15/23 06:00 08/15/23 06:00 08/15/23 07:18 Temperature 98.1 F 98.1 F Temperature Source Temporal Temporal Pulse Rate 84 84 Pulse Strength Respiratory Rate 18 18 Respiratory Effort Respiratory Depth Respiratory Pattern Blood Pressure 145/65 H 145/65 H Blood Pressure Mean 91 91 Blood Pressure Source Monitor Monitor Blood Pressure Position Sitting Semi-Fowlers Blood Pressure Location Right Arm Pulse Ox 94 94 97 Oxygen Delivery Method Room Air Room Air Room Air 08/15/23 07:40 08/15/23 11:39 08/15/23 07:55 Temperature 98.4 F 98.4 F Temperature Source Oral Oral Pulse Rate 87 89 Pulse Strength Respiratory Rate 16 16 Respiratory Effort Normal Non-Labored Respiratory Depth Normal Respiratory Pattern Normal Blood Pressure 139/69 H 132/64 H Blood Pressure Mean 92 86 Blood Pressure Source Monitor Monitor Blood Pressure Position Semi-Fowlers Semi-Fowlers Blood Pressure Location Left Arm Left Arm Pulse Ox 97 95 Oxygen Delivery Method Room Air Room Air Room Air 08/15/23 08:00 08/15/23 15:37 08/15/23 15:30 Temperature 98.3 F Temperature Source Oral Pulse Rate 80 Pulse Strength Weak (1+) Respiratory Rate 16 Respiratory Effort Normal Non-Labored Respiratory Depth Normal Respiratory Pattern Normal Blood Pressure 127/66 H Blood Pressure Mean 86 Blood Pressure Source Monitor Blood Pressure Position Semi-Fowlers Blood Pressure Location Left Arm Pulse Ox 96 Oxygen Delivery Method Room Air Room Air Weight Weight: 74.1 kg Body Mass Index (BMI) 30.9 NIHSS NIHSS Nursing Documentation NIHSS Nursing Documentation: NIH Stroke Scale Start: 08/14/23 09:19 Freq: Status: Discharge Protocol: Activity Type Activity Date Activity User E-sign Co-sign Detail Recorded Client Recorded Date Recorded By Document 08/14/23 10:19 HO Desktop 08/14/23 10:45 HO 08/14/23 10:19 NIH Stroke Scale [NIHSS] A score of 0 is normal or asymptomatic . Total possible score is 42. Inpatient: RN or Physician to activate a stroke alert for onset of new stroke symptoms or with NIHSS increase >/= 3 points. Following change in neurological status, NIHSS will be performed per physician order or more frequently PRN. -1b. LOC Questions Answers BOTH questions correctly. -1c. LOC Commands Performs both tasks correctly . -2. Best Gaze Normal -3. Visual No visual loss -4. Facial Palsy Partial paralysis ( total or near- total paralysis of lower face) -5a. Left Arm Some effort against gravity ; -5b. Right Arm No drift; arm holds 90 (or 45 ) degrees for full 10 seconds -6a. Left Leg Some effort against gravity ; -6b. Right Leg No drift; leg holds 30-degree position for full 5 seconds -7. Limb Ataxia Absent -8. Sensory Normal; no sensory loss -9. Best Language No aphasia; normal -10. Dysarthria Mild-to- moderate dysarthria; -11. Extinction and Inattention No abnormality -Total 7 Query Text:A score of 0 is normal or asymptomatic. Total possible score is 42 . ED: Notify Physician for NIHSS increase by > / = 3 points. Inpatient: RN or Physician to activate a stroke alert for NIHSS increase of > / = 3 points. NIHSS: Ischemic Stroke/TIA Start: 08/14/23 14:04 Text: For PCU Patients: NIH and Neuro Check every 4 Status: Active hours and PRN Freq: [id number] Protocol: Activity Type Activity Date Activity User E-sign Co-sign Detail Recorded Client Recorded Date Recorded By Document 08/15/23 15:38 SS Desktop 08/15/23 15:53 SS 08/15/23 15:38 -1a. Level of Consciousness Alert; keenly responsive -1b. LOC Questions Answers BOTH questions correctly. -1c. LOC Commands Performs both tasks correctly . -2. Best Gaze Normal -3. Visual No visual loss -4. Facial Palsy Minor paralysis (flattened nasolabial fold , asymmetry on smiling) -5a. Left Arm Some effort against gravity ; -5b. Right Arm No drift; arm holds 90 (or 45 ) degrees for full 10 seconds -6a. Left Leg Some effort against gravity ; -6b. Right Leg No drift; leg holds 30-degree position for full 5 seconds -7. Limb Ataxia Present in 2 limbs -8. Sensory Normal; no sensory loss -9. Best Language No aphasia; normal -10. Dysarthria Mild-to- moderate dysarthria; -11. Extinction and Inattention No abnormality -Total 8 Query Text:A score of 0 is normal or asymptomatic. Total possible score is 42 . ED: Notify Physician for NIHSS increase by > / = 3 points. Inpatient: RN or Physician to activate a stroke alert for NIHSS increase of > / = 3 points. NIHSS 1a. Level of Consciousness: Alert; keenly responsive 1b. LOC Questions: Answers BOTH questions correctly. 1c. LOC Commands: Performs both tasks correctly. 2. Best Gaze: Normal 3. Visual: No visual loss 4. Facial Palsy: Partial paralysis (total or near-total paralysis of lower face) 5a. Left Arm: Some effort against gravity; 5b. Right Arm: No drift; arm holds 90 (or 45) degrees for full 10 seconds 6a. Left Leg: Some effort against gravity; 6b. Right Leg: No drift; leg holds 30-degree position for full 5 seconds 7. Limb Ataxia: Absent 8. Sensory: [id number] sensory loss; 9. Best Language: No aphasia; normal 10. Dysarthria: [id number] dysarthria; Total: 8 Stroke Questions a.Reviewed Inclusion/Exclusion criteria: Yes Was Patient considered for Endovascular Intervention?: No IV Thrombolytic Administered: No No contraindications from thrombolytic administration: No Physical Exam Const alert, oriented x3, no apparent distress and average body habitus HEENT normocephalic, head/scalp atraumatic and hearing grossly normal bilaterally Eyes EOMs intact bilaterally and conjunctivae normal Neck full ROM Resp normal respiratory effort Cardio no JVD GI normal to inspection, nondistended, normoactive bowel sounds Extremity normal to inspection Skin no rashes or lesions noted Neuro oriented x3 Neuro Narrative: awake, alert oriented X3 Cranial Nerves: 2-12 intact except left facial droop Motor; Moves right side well, left hemiparesis sensation: Decreased on the left side Lab / Micro Data 08/15/23 07:00 08/15/23 07:00 Labs: Laboratory Results - last 24 hr 08/15/23 07:00: WBC 6.3, RBC 3.59 L, Hgb 10.9 L, Hct 33.3 L, MCV 92.8, MCH 30.4, MCHC 32.7, RDW Std Deviation 47.6 H, RDW Coeff of Alfredo 13.8, Plt Count 419, MPV 9.2, Immature Gran % (Auto) 0.300, Neut % (Auto) 66.9, Lymph % (Auto) 24.4, [place] % (Auto) 6.2, Eos % (Auto) 1.4, Baso % (Auto) 0.8, Absolute Neuts (auto) 4.2, Absolute Lymphs (auto) 1.54, Nucleated RBC % 0, Sodium 142, Potassium 3.7, Chloride 111 H, Carbon Dioxide 27.0, Anion Gap 4 L, BUN 9, Creatinine 0.90, Estim Creat Clear Calc 42.84, Est GFR (MDRD) Af Amer 77, Est GFR (MDRD) Non-Af 63, BUN/Creatinine Ratio 10.0, Glucose 101, Calcium 8.7, Triglycerides 73, Cholesterol 146, LDL Cholesterol 82, VLDL Cholesterol 15, HDL Cholesterol 49 Rhythm Strip Rhythm Strip: Sinus Rhythm Rate: 90 Ectopy: None Imagaing Radiology Impression Brain MRI 08/14/23 14:04 IMPRESSION: 1. Involutional changes of the brain, as described above. 2. Subacute infarcts of the periventricular white matter of the right parietal lobe. 3. Acute on chronic right sphenoid and maxillary sinusitis. Electronically Signed: Reid Mendes MD at 18:39 EST , ADDENDUM: 08/14/23 1857 IMPRESSION: 1. Involutional changes of the brain, as described above. 2. Subacute infarcts of the periventricular white matter of the right parietal lobe. 3. Acute on chronic right sphenoid and maxillary sinusitis. N.B. : The above Results were Read Back by Reid Mendes MD to Jody Penaloza RN, and understanding confirmed on 08/14/2023 18:50:17 (ET). Electronically Signed: Reid Mendes MD at 18:39 EST , Active Medications Active Medications Active Medications: Current Medications Generic Name Dose Route Start Last Admin Trade Name Freq PRN Reason Stop Dose Admin Acetaminophen 650 mg 08/15/23 12:13 08/15/23 13:00 Acetaminophen 325 Mg Tablet PO 650 mg Q4H PRN PRN Administration HEADACHE/FEVER (T>100F) Aspirin 81 mg 08/15/23 08:00 08/15/23 08:33 Aspirin E.C. 81 Mg Tablet PO 81 mg DAILYCM HALLE Administration Atorvastatin Calcium 40 mg 08/14/23 22:00 08/14/23 21:58 Atorvastatin Calcium 40 Mg Tablet PO 40 mg QHS HALLE Administration Clopidogrel Bisulfate 75 mg 08/15/23 10:00 08/15/23 08:33 Clopidogrel Bisulfate 75 Mg Tablet PO 75 mg DAILY HALLE Administration Hydralazine HCl 5 mg 08/14/23 14:04 Hydralazine 20 Mg/Ml Vial IV Q30M PRN to maintain BP goals Sodium Chloride 250 mls @ 15 mls/hr 08/14/23 15:23 IV .[id number] PRN Additional IVPB Infusion Sodium Chloride 250 mls @ 15 mls/hr 08/14/23 15:23 IV .[id number] PRN Saline Flush Sodium Chloride 1,000 mls @ 75 mls/hr 08/14/23 16:10 08/15/23 18:50 IV 75 mls/hr .[id number] HALLE Administration Ceftriaxone Sodium 1 gm in 50 mls @ 100 mls/hr 08/15/23 10:00 08/15/23 10:28 Rocephin IV Infused Q24 HALLE Infusion Labetalol HCl 10 - 20 mg 08/14/23 14:04 Labetalol (Prefilled) 20 Mg/4 Ml IV Q10M PRN PRN to Maintain BP Goals Nutritional Formula (Lactose Free) 120 ml 08/15/23 14:00 08/15/23 18:47 Ensure Plus High Protein 120 Ml Liquid PO 120 ml 4X/DAY HALLE Administration Ondansetron HCl 4 mg 08/15/23 12:13 Ondansetron 4 Mg/2 Ml Vial IV Q6H PRN PRN NAUSEA Sodium Chloride 10 - 40 ml 08/14/23 15:23 0.9% Saline Lock 10 Ml Syringe IV UD PRN SALINE FLUSH
[2023-08-15] MEDS: Atorvastatin Calcium 40 MG Tablet PO (19:44)
[2023-08-16] VITALS (9 sets, daily range): BP systolic 124–148; BP diastolic 56–72; PULSE 66–85; RESP 16; TEMP 36.2–37; O2SAT 96–98; BMI 30.9
[2023-08-16] MEDS: Ondansetron 4 MG/2 ML Vial IV ×2 (05:28→18:09)
[2023-08-16 07:38] LABS: Absolute Lymphocyte Count 1.78 X10^3/uL (0.83-4.51); Absolute Neutrophil Count 4.1 X10^3/uL (2.0-7.7); Basophil# 0.04 X10^3/uL; Basophil% 0.6 % (0-1); Eosinophil# 0.15 X10^3/uL; Eosinophils% 2.3 % (0-5); Hematocrit 35.5 % (37-47); Hemoglobin 11.1 g/dL (12.0-15.0); Lymphocyte # 1.78 X10^3/ul (0.83-4.51); Lymphocyte % 27.1 % (19-41); Mean Corp Hgb Conc 31.3 g/dL (32-36); Mean Corpuscular Hgb 29.3 pg (27.0-32.0); Mean Corpuscular Volume 93.7 fL (81-99); Mean Platelet Vol. 9.4 fl (6.2-12.0); Monocyte# 0.47 X10^3/uL; Monocyte% 7.2 % (0-10); NRBC Flagged by Analyzer 0 % (0-5); Neutrophil # 4.11 X10^3/uL (2.7-7.7); Neutrophil % 62.5 % (47-70); Platelet Count 381 K/mm3 (150-450); RBC Distribution Width CV 13.7 % (11.6-14.6); RBC Distribution Width SD 46.7 fl (35.1-43.9); Red Blood Count 3.79 M/mm3 (4.2-5.4); White Blood Count 6.6 K/mm3 (4.4-11.0)
[2023-08-16 07:50] LABS: Anion Gap 4 (5-15); BUN 7 mg/dL (7-18); BUN/Creat Ratio 8.2 RATIO (10-20); Calcium,Total 8.5 mg/dL (8.5-10.1); Chloride 113 mmol/L (98-107); Creatinine, Serum 0.85 mg/dL (0.55-1.02); EST Glomerular Filtration Rate 67 mL/min (>60); Est Glom Filt Rate - Afr Amer 82 mL/min (>60); Estimated Creatinine Clearance 45.36 ml/min; Glucose 99 mg/dL (74-106); Potassium 3.9 mmol/L (3.5-5.1); Sodium Level 143 mmol/L (136-145)
[2023-08-16] MEDS: Clopidogrel Bisulfate 75 MG Tablet PO (09:50)
[2023-08-16] MEDS: Aspirin E.C. 81 MG Tablet PO (09:50)
[2023-08-16] MEDS: 0.9% Normal Saline (1000mL) 1,000 ML 75 ML IV ×2 (09:50→19:41)
[2023-08-16] MEDS: Ceftriaxone 1 GM/50 ML BAG IV (09:50)
[2023-08-16 10:56] LABS: Hemoglobin A1c 5.6 % (3.8-5.6)
--- NOTE | 2023-08-16 11:16 | PCM.PN.HOSP ---
Subjective Subjective Doing well, symptoms remain stable Objective Data Objective Data Vital Signs: Vital Signs Temp Pulse Resp BP Pulse Ox O2 Del Method 97.7 F L 76 16 134/56 H 97 Room Air 08/16/23 09:00 08/16/23 09:00 08/16/23 09:00 08/16/23 09:00 08/16/23 09:00 08/16/23 09:00 Oxygen Delivery Method Room Air Weight: 163 lb 5.8 oz Body Mass Index (BMI) 30.9 Intake & Output: Intake and Output for Last 24 Hours 08/15/23 08/16/23 08/17/23 03:59 03:59 03:59 Intake Total 1052.5 / 1052.5 2945.0 / 2945.0 1290 / 1290 Output Total 800 / 800 1000 / 1000 Balance 1052.5 / 1052.5 2145.0 / 2145.0 290 / 290 Lab / Micro Data 08/16/23 07:19 08/16/23 07:19 Labs: Laboratory Results - last 24 hr 08/16/23 07:19: WBC 6.6, RBC 3.79 L, Hgb 11.1 L, Hct 35.5 L, MCV 93.7, MCH 29.3, MCHC 31.3 L, RDW Std Deviation 46.7 H, RDW Coeff of Alfredo 13.7, Plt Count 381, MPV 9.4, Immature Gran % (Auto) 0.300, Neut % (Auto) 62.5, Lymph % (Auto) 27.1, [place] % (Auto) 7.2, Eos % (Auto) 2.3, Baso % (Auto) 0.6, Absolute Neuts (auto) 4.1, Absolute Lymphs (auto) 1.78, Nucleated RBC % 0, Sodium 143, Potassium 3.9, Chloride 113 H, Carbon Dioxide 26.0, Anion Gap 4 L, BUN 7, Creatinine 0.85, Estim Creat Clear Calc 45.36, Est GFR (MDRD) Af Amer 82, Est GFR (MDRD) Non-Af 67, BUN/Creatinine Ratio 8.2 L, Glucose 99, Hemoglobin A1c 5.6, Calcium 8.5 Micro: Microbiology 08/14/23 11:26 Urine, Clean Catch Urine Culture - Final Culture exhibits no growth. Rhythm Strip Rhythm Strip: Sinus Rhythm Rate: 90 Ectopy: None Physical Exam Narrative General: Alert, Oriented x3, Cooperative, No apparent distress HEENT: Atraumatic, PERRLA, EOMI, Normocephalic Oral: Moist Mucosa Neck: Supple, No JVD Lungs: Diminished, Normal air movement, No rhonchi, No wheeze, No rales Cardiovascular: Regular rate, Regular Rhythm, Normal S1, Normal S2, No murmurs Abdomen: Soft, Non Tender, Non-Distended, No Hepato-splenomegaly Extremities: No edema, Capillary Refill Less than 3 Seconds Skin: No rashes, No breakdown Musculoskeletal: No Tenderness to Palpation of Joints or Extremities Neurological: Left facial droop, left upper and left lower extremity weakness Psych/Mental Status: Flat Assessment & Plan Assessment/Plan (1) CVA (cerebral vascular accident): PLAN: Plan 1. CVA ? She has had 2 previous strokes 1 cerebellar is the most recent and had to be transferred to a tertiary center as there is a concern for vertebral artery thrombus though family states no intervention was done the outside hospital and after discharge she had no residual deficits ?With her other stroke she did not have any left facial droop or left-sided weakness ? She is already on aspirin and Plavix as well as Lipitor will continue with telemetry, will need a 30-day event monitor on discharge however she may be going to a group home ? Will increase her Lipitor from 40 mg to 80 mg nightly ? MRI with multiple subacute infarcts in the periventricular white matter of the right parietal lobe, will consult [place] [facility] and continue with her antiplatelets ?She was supposed to wear Holter monitor after her last admission after she was transferred to [facility] but that does not appear to have occurred current telemetry does not indicate A-fib however given the presence of multiple infarcts will likely need an event monitor on discharge ? Permissive hypertension ? Will not repeat an echo she had 1 in May with a normal EF of 65% and severe mitral valve stenosis, her PASP was 45 to 50 mmHg and the bubble study was negative ? Urine culture with no growth DVT: SCDs Charges/Coding Visit Charges Inpatient E&M: 82174 Subs Hosp L2
--- NOTE | 2023-08-16 11:29 | CASEMGMT ---
Addendum entered by Milena Bradford 08/16/23 15:39: Social Work Both [facility] and [facility] accepted pt. SW called son to let him know. SW asked him to follow up w/SW Friday to let SW know where they would like to start precert--and that we can also check w/rehab once more here before starting precert with one of the other facilitues. Son states understanding, thanked SW for the information. ARIEL Lewis Addendum entered by Milena Bradford 08/16/23 12:15: Social Work SW sent referrals via [facility] to [facility] and [facility]. ARIEL Lewis Original Note: Social Work Pt's son called, he states he and pt's other children spoke. They would like referrals sent to [facility] and to [facility]. He states the children prefer [facility], the pt prefers [facility]. SW did let son know that therapy is recommending rehab. Son states understanding. He states they would still prefer pt stay here should a bed open up in rehab. SW explained will make referrals, will keep family informed. ARIEL Lewis
--- NOTE | 2023-08-16 12:46 | PN.NEURO_ITS ---
Objective Data Objective Data Vital Signs: Vital Signs Temp Pulse Resp BP Pulse Ox O2 Del Method 97.7 F L 76 16 134/56 H 97 Room Air 08/16/23 09:00 08/16/23 09:00 08/16/23 09:00 08/16/23 09:00 08/16/23 09:00 08/16/23 09:00 Oxygen Delivery Method Room Air Weight: 74.1 kg Body Mass Index (BMI) 30.9 Intake & Output: Intake and Output for Last 24 Hours 08/14/23 08/15/23 08/16/23 23:59 23:59 23:59 Intake Total 1052.5 / 1052.5 2945.0 / 2945.0 1290 / 1290 Output Total 800 / 800 1000 / 1000 Balance 1052.5 / 1052.5 2145.0 / 2145.0 290 / 290 Lab / Micro Data 08/16/23 07:19 08/16/23 07:19 Labs: Laboratory Results - last 24 hr 08/16/23 07:19: WBC 6.6, RBC 3.79 L, Hgb 11.1 L, Hct 35.5 L, MCV 93.7, MCH 29.3, MCHC 31.3 L, RDW Std Deviation 46.7 H, RDW Coeff of Alfredo 13.7, Plt Count 381, MPV 9.4, Immature Gran % (Auto) 0.300, Neut % (Auto) 62.5, Lymph % (Auto) 27.1, [place] % (Auto) 7.2, Eos % (Auto) 2.3, Baso % (Auto) 0.6, Absolute Neuts (auto) 4.1, Absolute Lymphs (auto) 1.78, Nucleated RBC % 0, Sodium 143, Potassium 3.9, Chloride 113 H, Carbon Dioxide 26.0, Anion Gap 4 L, BUN 7, Creatinine 0.85, Estim Creat Clear Calc 45.36, Est GFR (MDRD) Af Amer 82, Est GFR (MDRD) Non-Af 67, BUN/Creatinine Ratio 8.2 L, Glucose 99, Hemoglobin A1c 5.6, Calcium 8.5 Micro: Microbiology 08/14/23 11:26 Urine, Clean Catch Urine Culture - Final Culture exhibits no growth. Rhythm Strip Rhythm Strip: Sinus Rhythm Rate: 90 Ectopy: None Physical Exam Const Orientation / Consciousness: awake, oriented to person, oriented to place and oriented to time Eyes EOMs intact bilaterally Resp normal respiratory effort Neuro Neuro Narrative: Awake, alert, oriented X3 Cranial nerve 2-12 intact except left facial droop Mild dysarthria No aphasia Left hemiparesis Sensation intact No ataxia Subject: Neurology Subjective LIBAN TRACEY is a 83 year old F, who we are seeing in consultation today for advice on the management of stroke and related patient care. Improving left sided weakness Assessment and Plan: Stroke Assessment/Plan LIBAN TRACEY is a 83 F with a history of stroke who presents for evaluation of left facial droop, left hemiparesis, slurred speech for the last 3 days. She is on DAPT at home and compliant. Not a candidate for thrombolysis as out of the window or thrombectomy as no LVO Neurological examination shows left hemiparesis. 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 MRI: Subacute infarcts of the periventricular white matter of the right parietal lobe. Recent TTE: EF 65% Recurrent stroke - cryptogenic in etiology Recommend Continue DAPT. From stroke stand point needs only one Ap agent. Defer DAPT to her primary neurologist Continue statin to keep LDL <70 Please obtain HbA1C 30 day Event monitor upon discharge for Afib. PT,OT evaluation Speech and swallow eval Permissive hypertension in acute phase and needs skilled nursing normal BP control thanks for the consult. i spent 32 min in evaluation and management of this patient.
[2023-08-16] MEDS: Acetaminophen 325 MG Tablet 650 MG PO (16:06)
[2023-08-16] MEDS: 0.9% Saline Lock 10 ML Syringe IV (18:09)
[2023-08-16] MEDS: Atorvastatin Calcium 80 MG Tablet PO (19:42)
[2023-08-17] VITALS (7 sets, daily range): BP systolic 120–157; BP diastolic 60–78; PULSE 69–86; RESP 16–19; TEMP 36.4–37.2; O2SAT 95–99; BMI 30.9
[2023-08-17] MEDS: Sertraline 50 MG Tablet PO (10:07)
[2023-08-17] MEDS: Clopidogrel Bisulfate 75 MG Tablet PO (10:07)
[2023-08-17] MEDS: Aspirin E.C. 81 MG Tablet PO (10:07)
--- NOTE | 2023-08-17 10:07 | PCM.PN.HOSP ---
Subjective Subjective Still dejected and depressed about her current medical situation willing to try Zoloft Objective Data Objective Data Vital Signs: Vital Signs Temp Pulse Resp BP Pulse Ox O2 Del Method 97.7 F L 86 16 134/69 H 99 Room Air 08/17/23 09:45 08/17/23 09:45 08/17/23 09:45 08/17/23 09:45 08/17/23 09:45 08/17/23 09:54 Oxygen Delivery Method Room Air Weight: 163 lb 5.8 oz Body Mass Index (BMI) 30.9 Intake & Output: Intake and Output for Last 24 Hours 08/16/23 08/17/23 08/18/23 03:59 03:59 03:59 Intake Total 2945.0 / 2945.0 2868.75 / 2868.75 Output Total 800 / 800 2450 / 2450 400 / 400 Balance 2145.0 / 2145.0 418.75 / 418.75 -400 / -400 Lab / Micro Data 08/16/23 07:19 08/16/23 07:19 Labs: Laboratory Results - last 24 hr 08/16/23 07:19: Hemoglobin A1c 5.6 Micro: Microbiology 08/14/23 11:26 Urine, Clean Catch Urine Culture - Final Culture exhibits no growth. Rhythm Strip Rhythm Strip: Sinus Rhythm Rate: 90 Ectopy: None Physical Exam Narrative General: Alert, Oriented x3, Cooperative, No apparent distress HEENT: Atraumatic, PERRLA, EOMI, Normocephalic Oral: Moist Mucosa Neck: Supple, No JVD Lungs: Diminished, Normal air movement, No rhonchi, No wheeze, No rales Cardiovascular: Regular rate, Regular Rhythm, Normal S1, Normal S2, No murmurs Abdomen: Soft, Non Tender, Non-Distended, No Hepato-splenomegaly Extremities: No edema, Capillary Refill Less than 3 Seconds Skin: No rashes, No breakdown Musculoskeletal: No Tenderness to Palpation of Joints or Extremities Neurological: Left facial droop, left upper and left lower extremity weakness Psych/Mental Status: Flat Assessment & Plan Assessment/Plan (1) CVA (cerebral vascular accident): PLAN: Plan 1. CVA ? She has had 2 previous strokes 1 cerebellar is the most recent and had to be transferred to a tertiary center as there is a concern for vertebral artery thrombus though family states no intervention was done the outside hospital and after discharge she had no residual deficits ?With her other stroke she did not have any left facial droop or left-sided weakness ? She is already on aspirin and Plavix as well as Lipitor will continue with telemetry, will need a 30-day event monitor on discharge however she may be going to a [place] [facility] [place] ? Will increase her Lipitor from 40 mg to 80 mg nightly ? MRI with multiple subacute infarcts in the periventricular white matter of the right parietal lobe, will consult [place] [facility] and continue with her antiplatelets ?She was supposed to wear Holter monitor after her last admission after she was transferred to [facility] but that does not appear to have occurred current telemetry does not indicate A-fib however given the presence of multiple infarcts will likely need an event monitor on discharge ? Permissive hypertension ? Will not repeat an echo she had 1 in May with a normal EF of 65% and severe mitral valve stenosis, her PASP was 45 to 50 mmHg and the bubble study was negative ?Continue with Zoloft for mood disturbance given her medical situation DVT: SCDs Disposition: Pending discharge to SNF will need 30-day event monitor Charges/Coding Visit Charges Inpatient E&M: 10976 Subs Hosp L2
[2023-08-17] MEDS: 0.9% Normal Saline (1000mL) 1,000 ML 75 ML IV ×2 (10:13→23:06)
[2023-08-17] MEDS: Acetaminophen 325 MG Tablet 650 MG PO ×2 (10:18→14:33)
--- NOTE | 2023-08-17 11:32 | STROKE.PNOTE ---
Objective Data Objective Data Vital Signs: Vital Signs Temp Pulse Resp BP Pulse Ox O2 Del Method 97.7 F L 86 16 134/69 H 99 Room Air 08/17/23 09:45 08/17/23 09:45 08/17/23 09:45 08/17/23 09:45 08/17/23 09:45 08/17/23 09:54 Oxygen Delivery Method Room Air Weight: 74.1 kg Body Mass Index (BMI) 30.9 Intake & Output: Intake and Output for Last 24 Hours 08/15/23 08/16/23 08/17/23 23:59 23:59 23:59 Intake Total 2945.0 / 2945.0 2868.75 / 2868.75 1000 / 1000 Output Total 800 / 800 1750 / 2450 1100 / 1100 Balance 2145.0 / 2145.0 1118.75 / 418.75 -100 / -100 Lab / Micro Data 08/16/23 07:19 08/16/23 07:19 Micro: Microbiology 08/14/23 11:26 Urine, Clean Catch Urine Culture - Final Culture exhibits no growth. Rhythm Strip Rhythm Strip: Sinus Rhythm Rate: 90 Ectopy: None Physical Exam HEENT normocephalic and head/scalp atraumatic Eyes EOMs intact bilaterally and normal visual tristan by confrontation Resp normal respiratory effort Neuro Neuro Narrative: Awake, alert, oriented X3 Cranial nerve 2-12 intact except left facial droop Mild dysarthria No aphasia Left hemiparesis Sensation intact Subject: Neurology Subjective LIBAN TRACEY is a 83 year old F, who we are seeing in consultation today for advice on the management of stroke and related patient care. She reports persistent weakness on left side Assessment and Plan: Stroke Assessment/Plan LIBAN TRACEY is a 83 F with a history of recurrent stroke who presents for evaluation of left facial droop, left hemiparesis, slurred speech for the last 3 days. She is on DAPT at home and compliant. Not a candidate for thrombolysis as out of the window or thrombectomy as no LVO Neurological examination shows left hemiparesis. Neuroimaging shows CT: Foci of encephalomalacia within the right frontal lobe and left cerebellum s/o old strokes CTA: No LVO, left [employer]IST non visualized. MRI: Subacute infarcts of the periventricular white matter of the right parietal lobe. Recent TTE: EF 65% Recurrent stroke - cryptogenic in etiology Recommend Continue DAPT during acute phase. From stroke stand point rn long term care needs only one AP agent. Defer rn long term care DAPT management to her primary neurologist Continue statin to keep LDL <70 HbA1C pending 30 day Event monitor upon discharge for Afib. PT,OT evaluation Speech and swallow eval Permissive hypertension in acute phase and needs rn long term care normal BP control Will need rehab DVT prophylaxis Thanks for the consult. I spent 31 min in evaluation and management of this patient.
[2023-08-17] MEDS: Ondansetron 4 MG/2 ML Vial IV (12:48)
[2023-08-17] MEDS: Ensure Plus High Protein 120 ML LIQUID PO (21:50)
[2023-08-17] MEDS: Atorvastatin Calcium 80 MG Tablet PO (21:50)
[2023-08-18] VITALS (7 sets, daily range): BP systolic 135–151; BP diastolic 54–75; PULSE 62–69; RESP 12–18; TEMP 36.5–36.8; O2SAT 94–97; BMI 30.9
[2023-08-18 06:33] LABS: Absolute Lymphocyte Count 1.44 X10^3/uL (0.83-4.51); Absolute Neutrophil Count 4.6 X10^3/uL (2.0-7.7); Basophil# 0.05 X10^3/uL; Basophil% 0.7 % (0-1); Eosinophil# 0.33 X10^3/uL; Eosinophils% 4.8 % (0-5); Hematocrit 34.3 % (37-47); Lymphocyte # 1.44 X10^3/ul (0.83-4.51); Mean Corp Hgb Conc 32.1 g/dL (32-36); Mean Corpuscular Hgb 29.8 pg (27.0-32.0); Mean Platelet Vol. 9.8 fl (6.2-12.0); Monocyte# 0.43 X10^3/uL; Monocyte% 6.3 % (0-10); NRBC Flagged by Analyzer 0 % (0-5); Neutrophil # 4.58 X10^3/uL (2.7-7.7); Neutrophil % 66.9 % (47-70); Platelet Count 344 K/mm3 (150-450); RBC Distribution Width CV 13.4 % (11.6-14.6); RBC Distribution Width SD 45.9 fl (35.1-43.9); Red Blood Count 3.69 M/mm3 (4.2-5.4); White Blood Count 6.9 K/mm3 (4.4-11.0)
[2023-08-18 06:57] LABS: Anion Gap 5 (5-15); BUN 7 mg/dL (7-18); BUN/Creat Ratio 8.1 RATIO (10-20); Calcium,Total 8.7 mg/dL (8.5-10.1); Chloride 113 mmol/L (98-107); Creatinine, Serum 0.86 mg/dL (0.55-1.02); EST Glomerular Filtration Rate 67 mL/min (>60); Est Glom Filt Rate - Afr Amer 81 mL/min (>60); Estimated Creatinine Clearance 44.83 ml/min; Glucose 95 mg/dL (74-106); Potassium 3.8 mmol/L (3.5-5.1); Sodium Level 143 mmol/L (136-145)
[2023-08-18] MEDS: Aspirin E.C. 81 MG Tablet PO (08:41)
[2023-08-18] MEDS: Clopidogrel Bisulfate 75 MG Tablet PO (08:41)
[2023-08-18] MEDS: Sertraline 50 MG Tablet PO (08:41)
--- NOTE | 2023-08-18 08:56 | NURSING ---
Family is requesting that the patient not receive prescribed zoloft, will notify physician. Pt had already taken daily dose today.
--- NOTE | 2023-08-18 09:20 | PCM.PN.HOSP ---
Reason for Visit Reason for Visit: Diagnoses Cerebral infarction, unspecified (08/15/23) Objective Data Objective Data Vital Signs: Vital Signs Temp Pulse Resp BP Pulse Ox O2 Del Method 97.7 F L 66 12 135/70 H 97 Room Air 08/18/23 08:30 08/18/23 08:30 08/18/23 08:30 08/18/23 08:30 08/18/23 08:30 08/18/23 08:30 Oxygen Delivery Method Room Air Weight: 163 lb 5.8 oz Body Mass Index (BMI) 30.9 Intake & Output: Intake and Output for Last 24 Hours 08/16/23 08/17/23 08/18/23 23:59 23:59 23:59 Intake Total 2868.75 / 2868.75 2676.25 / 2916.25 240 / 240 Output Total 1750 / 2450 1700 / 2025 1125 / 1125 Balance 1118.75 / 418.75 976.25 / 891.25 -885 / -885 Lab / Micro Data 08/18/23 05:25 08/18/23 05:25 Labs: Laboratory Results - last 24 hr 08/18/23 05:25: WBC 6.9, RBC 3.69 L, Hgb 11.0 L, Hct 34.3 L, MCV 93.0, MCH 29.8, MCHC 32.1, RDW Std Deviation 45.9 H, RDW Coeff of Alfredo 13.4, Plt Count 344, MPV 9.8, Immature Gran % (Auto) 0.300, Neut % (Auto) 66.9, Lymph % (Auto) 21.0, [place] % (Auto) 6.3, Eos % (Auto) 4.8, Baso % (Auto) 0.7, Absolute Neuts (auto) 4.6, Absolute Lymphs (auto) 1.44, Nucleated RBC % 0, Sodium 143, Potassium 3.8, Chloride 113 H, Carbon Dioxide 25.0, Anion Gap 5, BUN 7, Creatinine 0.86, Estim Creat Clear Calc 44.83, Est GFR (MDRD) Af Amer 81, Est GFR (MDRD) Non-Af 67, BUN/Creatinine Ratio 8.1 L, Glucose 95, Calcium 8.7 Micro: Microbiology 08/14/23 11:26 Urine, Clean Catch Urine Culture - Final Culture exhibits no growth. Rhythm Strip Rhythm Strip: Sinus Rhythm Rate: 90 Ectopy: None Physical Exam Narrative Seen and examined. Patient has left upper extremity weakness and left-sided facial droop. Denies any change in the speech, either sensory or motor/difficulty in comprehension, reading or writing. Patient states she had 2 strokes in the past Physical exam General: Alert, Oriented x3, Cooperative HEENT: Atraumatic, PERRLA, EOMI, Normocephalic Oral: No Gingival or Mucosal Lesions/ Ulcerations Neck: Supple, No JVD, Negative Carotid Bruits Lungs: Air entry diminished in bilateral lung bases. No crepitation/rhonchi Cardiovascular: Regular rate, Regular Rhythm, Normal S1, Normal S2, No murmurs Abdomen: Bowel Sounds Present, Soft, Non Tender, Non-Distended : Denies dysuria. No renal angle tenderness. No suprapubic tenderness. Extremities: No edema, Capillary Refill Less than 3 Seconds Skin: No rashes, No breakdown Musculoskeletal: Left upper extremity weak. History of left knee surgery. Chronic weakness of both lower extremities. Neurological: Left facial nerve palsy. DTR 2+/4. Left upper extremity weakness and facial droop. Psych/Mental Status: flat affect. Assessment & Plan Assessment/Plan (1) CVA (cerebral vascular accident): PLAN: Plan 1. 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 She has had 2 previous strokes 1 cerebellar is the most recent and had to be transferred to a tertiary center as there is a concern for vertebral artery thrombus though family states no intervention was done the outside hospital and after discharge she had no residual deficits ?With her other stroke she did not have any left facial droop or left-sided weakness ? She is already on aspirin and Plavix as well as Lipitor will continue with telemetry, will need a 30-day event monitor on discharge however she may be going to a longterm ? Lipitor increased from 40 mg to 80 mg nightly ? MRI with multiple subacute infarcts in the periventricular white matter of the right parietal lobe, continue with her antiplatelets Patient was seen by [facility] neurologist and recommended to continue DAPT.. From a stroke standpoint will need long-term antiplatelet agent but defer to primary neurologist. Continue statin to keep LDL less than 70. 30-day event monitor. ?She was supposed to wear Holter monitor after her last admission after she was transferred to [facility] but that does not appear to have occurred current telemetry does not indicate A-fib A1c 5.6%. ? Permissive hypertension ? Will not repeat an echo she had 1 in May with a normal EF of 65% and severe mitral valve stenosis, her PASP was 45 to 50 mmHg and the bubble study was negative ?Continue with Zoloft for mood disturbance given her medical situation DVT: SCDs Continue PT and OT and pre-CERT. Discharged with 30-day event monitor. Patient follows Dr. Broussard. Charges/Coding Visit Charges Inpatient E&M: 21204 Subs Hosp L2
--- NOTE | 2023-08-18 09:23 | CASEMGMT ---
[facility] Acute Rehab has availability. Inpatient Rehab physician will review and if she accepts No[facility] will start pre-cert. CHERELLE spoke with patient's son Jose letting him know [facility] Acute Re[facility] has availability. Jose said that is their first choice. [facility] is patient and family's second choice if [facility] Rehab does not work out. Plan: [facility] Re[facility] vs [facility] pending insurance approval. Caro George GAS OR PETROLEUM OPERATOR DIVYA
--- NOTE | 2023-08-18 11:48 | CASEMGMT ---
CHERELLE was informed [facility] Acute Rehab declined patient. CHERELLE called patient's son Jose and let him know. CHERELLE asked if [facility] or [facility] is the next choice. Jose said [facility] is the next choice. CHERELLE asked Kylie d/c child care assistant to send a referral to [facility] and if they can accept to please start the pre-cert. Plan: d/c to [facility] pending their acceptance and insurance approving. Caro George ASPHALT SURFACE HEATER OPERATOR DIVYA
--- NOTE | 2023-08-18 12:10 | CASEMGMT ---
Discharge Planning Referral sent to [place] [facility] via [facility]. Kylie Shelton, Discharge Planning Asst.
--- NOTE | 2023-08-18 13:15 | CASEMGMT ---
[facility] accepted patient and will submit for pre-cert. Plan: d/c to [facility] pending insurance approval. Caro STOKES
--- OUTSIDE RECORDS SUMMARY | 2023-08-18 14:45 | XMS RPT_ITS | CCD ---
Author Name Unknown Address [address] [place] [address] Organization [facility] Care Team Providers Care Social Services Analyst Name Role Phone KARIME EDWARD, MITUL Levy [...] NBP [address] TANIA JAFFE MD [facility] 02-12-2022 12:45-0400 Heart rate 93 /min DR TANIA JAFFE MD [facility] 02-12-2022 12:45-0400 Respiratory rate 16 /min DR TANIA JAFFE MD [facility] 02-12-2022 12:45-0400 Systolic Blood Pressure NBP [address] TANIA JAFFE MD [facility] 02-12-2022 10:55-0400 Diastolic Blood Pressure NBP [address] TANIA JAFFE MD [facility] 02-12-2022 10:55-0400 Heart rate 89 /min DR TANIA JAFFE MD [facility] 02-12-2022 10:55-0400 Respiratory rate 16 /min DR TANIA JAFFE MD [facility] 02-12-2022 10:55-0400 Systolic Blood Pressure NBP [address] TANIA JAFFE MD [facility] 02-12-2022 10:15-0400 Diastolic Blood Pressure NBP [address] TANIA JAFFE MD [facility] 02-12-2022 10:15-0400 Heart rate 92 /min DR TANIA JAFFE MD [facility] 02-12-2022 10:15-0400 Respiratory rate 16 /min DR TANIA JAFFE MD [facility] 02-12-2022 10:15-0400 Systolic Blood Pressure NBP [address] TANIA JAFFE MD [facility] 02-12-2022 09:11-0400 Body temperature 96.44 [degF] DR TANIA JAFFE MD [facility] 02-12-2022 05:59-0400 Body height [address] TANIA JAFFE MD [facility] 02-12-2022 05:59-0400 Body temperature 97.34 [degF] DR TANIA JAFFE MD [facility] 02-12-2022 05:59-0400 Body weight 78.[address] TANIA JAFFE MD [facility] 02-12-2022 05:59-0400 Heart rate 86 /min DR TANIA JAFFE MD [facility] 01-29-2022 10:18-0400 Body height [address] TANIA JAFFE MD [facility] 01-29-2022 10:18-0400 Body weight 78.[address] TANIA JAFFE MD [facility] 01-29-2022 10:18-0400 Body weight 32.55 kg/m2 DR TANIA JAFFE MD [facility] 01-29-2022 10:18-0400 diastolic 80 mm[Hg] DR TANIA JAFFE MD [facility] 01-29-2022 10:18-0400 Heart rate 90 /min DR TANIA JAFFE MD [facility] 01-29-2022 10:18-0400 systolic 132 mm[Hg] DR TANIA JAFFE MD [facility] Encounters Encounter Date Encounter Type Care Provider Facility Start: 06-11-2023 End: 06-20-2023 ambulatory ABDON CALI Facility:[facility] Start: 06-11-2023 End: 06-20-2023 Subsequent hospital visit by physician Abdon Cali DO Work Phone: [facility] Start: 06-08-2023 Evaluation and management of inpatient ARLENE UP Facility:[facility] Start: 06-07-2023 ambulatory Yoana Crawford MD [...] Start: 06-12-2026 Diabetes Screening Diabetes Screenin g [facility] Start: 03-28-2023 Influenza vaccination Influenza Vacc ine (#1) [facility] Start: 07-28-2022 Advance Directive Discussion Advance Directive Discussion [facility] Start: 07-28-2022 Depression Assessment Depression Ass essment [facility] Start: 01-23-2004 Bone Density Screening Bone Density Screening [facility] Start: 1999 RSV Vaccine (1 - 1-d ose 60+ series) RSV Vaccine (1 - 1-dose 60+ series) [facility] Start: 1989 Shingrix Vaccine (1 of 2) Shingrix V accine (1 of 2) [facility] Start: 1958 Urine microalbumin profile DTaP,Tdap,Td Vaccine (1 - Tdap) [facility] Start: 1945 Pneumococcal Vaccine : 65+ (1 - PCV) Pneumococcal Vaccine: 65+ (1 - PCV) [facility] Start: 1940 Covid-19 Vaccine (#1) Covid-19 Vacci ne (#1) [facility] Payers Date Payer Category Payer Unknown [id number] 2000 Private Health Insurance [facility] OPTIONS PPO [id number] 2000-Present [phone] [address] [place] [address] PPO [id number] 2000 Unknown [id number] 1940 Unknown [id number] 1939 Unknown [id number] 1939 Unknown [id number] 1939 Unknown [id number] 1939 Unknown [id number] Unknown [id number] Social History Date Type Detail Facility Start: 03-13-2021 Tobacco smoking status Never smoked tobacco (finding) [facility] Sex Assigned At Sex [facility] Tobacco smoking status FLIS Tobacco smoking consumption unknown [facility] Work Phone: Start: 1940 Sex Assigned At Not on file [facility] Start: 06-09-2023 Gender identity Not on file [facility] Work Phone: Start: 06-09-[address] [facility] Work Phone: How hard is it for you to pay for the very basics like food, housing, medical care, and heating Not hard at all [facility] Work Phone: (I/We) worried whether (my/our) food would run out before (I/we) got money to buy more. Never true [facility] Work Phone: In the past 12 months, was there a time when you were not able to pay the mortgage or rent on time? No [facility] Work Phone: Functional Status Date Assessment Result Facility 02-12-2022 Functional Status Dtr will be [facility] with patient [facility] 02-12-2022 Functional Status ice on [facility] 02-12-2022 Functional Status [facility] 02-12-2022 Functional Status Maintained [facility] 01-29-2022 Functional Status Sensory Deficits None A [facility] Mental Status Date Assessment Result Facility 02-12-2022 Mental Status Orientation Asse ssment Oriented x 4 [facility] 02-12-2022 Mental Status Orientation Oriented x 4 [facility] 02-12-2022 Mental Status [facility] Clinical Notes 01-29-2022 to 06-11-2023 Note Date & Type Note Facility 06-11-2023 Note HNO ID: [id number] Author: Abelino Dominguez RPh Service: Pharmacy Author [...] RPh June 11, 2023 12:33 PM Pager: [phone] 06/11/2023 12:33 PM Medication List START taking [...] acid (vitamin C) WOMEN'S MULTIVITAMIN ORAL [facility] 06-11-2023 Note HNO ID: [id number] Author: Ynes Campos RN Service: Care Management [...] Information: Pt has auth to go to [facility]. The patient's family is planning to drive her there and leave the hospital at 1330. Rosa Lee is aware that family will be driving her. SIGNATURE: Ynes Campos RN PATIENT NAME: Liban Tracey DATE: June 11, 2023 TIME: 12:20 PM CONTACT #: [phone] [facility] 06-11-2023 Note HNO ID: [id number] Author: Ynes Campos RN Service: Care Management Author Type: Registered Nurse Type: Care Mgt Progress Note Filed: 06/11/2023 10:57 AM Note Text: CARE MANAGEMENT PROGRESS NOTE SERVICE DATE: 06/11/2023 SERVICE TIME: 10:56 AM LOS: 4 days Needs Prior to Discharge: Ready for Discharge IMM Follow Up Copy Given: No Reason: Acute Rehab The patient has auth to go to [facility] for [place]. Her bed will be available at 1330 today. Her family plans to drive her there when ready for discharge. Will notify the attending. SIGNATURE: Ynes Campos RN PATIENT NAME: Liban Tracey DATE: June 11, 2023 TIME: 10:56 AM PAGER/CONTACT #: [phone] [facility] 06-10-2023 Note HNO ID: [id number] Author: Alexandria Hatfield RN Service: ? Author Type: Registered Nurse Type: Nursing Progress Note Filed: 06/10/2023 1:09 PM Note Text: Gag reflex checked and has returned. Patient okay to start oral intake per order. [facility] 06-10-2023 Note HNO ID: [id number] Author: Kim Sinclair MD Service: Hospital Medicine [...] Date: 06/07/2023 Images were obtained outside of [facility] OT-Brain/Head without Contrast IMPORT Result Date: 06/07/2023 Images were obtained outside of [facility] CT-CTA Head AND Neck W/ Contrast IMPORT Result Date: 06/07/2023 Images were obtained outside of [facility] Most recent EKG NSR Blood and Urine [...] complicated by severe mitral stenosis. Presented to [place] ED with GOLDMAN, ataxia, and presyncope on 06/05. MRI brain showed left cerebellar infarct. Teleneurology recommended tertiary center with neurosurgery capability. Patient was monitored on NSICU. Remained stable. Transferred to [facility] 06/08/2023. # Acute left cerebellar stroke [...] - MRI brain done at [facility] 06/09. Regular diet. - PT/OT > acute [...] Tracey DATE: 06/10/2023 TIME: 1:01 PM [facility] 06-10-2023 Note HNO ID: [id number] Author: Ynes Campos RN Service: Care Management Author Type: Registered Nurse Type: Care Mgt Progress Note Filed: 06/10/2023 3:56 PM Note Text: CARE MANAGEMENT PROGRESS NOTE SERVICE DATE: 06/10/2023 SERVICE TIME: 12:00 PM LOS: 3 days Needs Prior to Discharge: OT/PT Evaluation;Insurance Authorization;Bed Availability;Accepting Facility;Facility or Agency Choices;Discharge Transportation [place] of Choice Given: Yes Level of Care [...] 10, 2023 TIME: 11:59 AM PAGER/CONTACT #: [phone] [facility] 06-10-2023 Note HNO ID: [id number] Author: Lei Jules MD Service: Cardiovascular Medicine Author Type: Physician Type: Plan of Care Filed: 06/10/2023 10:03 AM Note Text: DNR status to be reversed to full code for the JUDE as discussed and agreed by the patient, DNR status will be re-instated after JUDE. Lei Jules MD, [facility] Cardiovascular [place] SupervisorFinance Lecturermulti township assessor [facility] Pager: [phone] [facility] 06-09-2023 Note HNO ID: [id number] Author: Kim Sinclair MD Service: Hospital Medicine [...] Date: 06/07/2023 Images were obtained outside of [facility] OT-Brain/Head without Contrast IMPORT Result Date: 06/07/2023 Images were obtained outside of [facility] CT-CTA Head AND Neck W/ Contrast IMPORT Result Date: 06/07/2023 Images were obtained outside of [facility] Most recent EKG NSR Blood and Urine [...] complicated by severe mitral stenosis. Presented to [place] ED with GOLDMAN, ataxia, and presyncope on 06/05. MRI brain showed left cerebellar infarct. Teleneurology recommended tertiary center with neurosurgery capability. Patient was monitored on NSICU. Remained stable. Transferred to [facility] 06/08/2023. # Acute left cerebellar stroke [...] - MRI brain done at [facility] 06/09. Regular diet. - PT/OT pending # [...] Tracey DATE: 06/09/2023 TIME: 1:18 PM [facility] documented as of this encounter (statuses as of 06/20/2023) [facility]11-12-2023 NoteHNO ID: [id number] Author: Nilsa Prater [facility] Service: Pharmacy Author Type: Pharmacist Type: Plan of Care Filed: 06/10/2023 9:38 AM Note Text: PHARMACY MEDICATION REVIEW Patient Name: Liban Tracey : 1940 The following medications were updated within the VENIPUNCTURIST medication list: Medications ADDED to VENIPUNCTURIST medication list ascorbic acid, vitamin C, (VITAMIN C) 500 mg tablet Patient Yes Yes aspirin, enteric coated (ASPIRIN, ENTERIC COATED) 81 mg EC tablet Patient Yes Yes mv-min/iron/folic/calcium/vitK (WOMEN'S MULTIVITAMIN ORAL) Patient Yes Yes triamcinolone acetonide (KENALOG) 0.1 % ointment OTHER, Patient Yes Yes OTC medications and Kenalog RX as needed. (Poison Jen exposure per pt) Medications CHANGED on VENIPUNCTURIST medication list Medications REMOVED from VENIPUNCTURIST medication list Additional comments: I was able to talk with pt. and she verified the 4 medications on the VENIPUNCTURIST list. I have added these 4 medications to the VENIPUNCTURIST list and have not removed or changed any medications. Pt states she uses [facility] for her home medications. Required follow up actions for nursing: Medication history completed by Historian. No nursing follow up required. The below information represents the best possible medication history: Yes Medication history completed by: Salesperson Books: Brendan Sánchez (Levers Lace Machine Operator) Source of history: Patient: Reliability of source: Appears reliable, clearly identified: Medication name, Medication dose, Medication route, and Medication frequency and Pharmacy records: [facility] [employer] [facility] Medication nonadherence identified: No barriers noted Reconciliation completed: Yes Completed by: Nilsa Prater, PharmD, [facility] Nursing Unit Based Pharmacist Ext: [phone] All VENIPUNCTURIST medications addressed by LIP Patient interested in Bedside Delivery Services or using OP Pharmacy at discharge? Unable to assess Preferred outpatient pharmacy: [facility] [place] [address] [address] [facility] [address] - [phone] Allergies: No Known Allergies Prior to Admission [...] AND USE TWICE DAILY in THE future [facility] Facility-Administered Medications: None Brendan Sánchez (Levers Lace Machine Operator) phone [phone] 06/08/2023 I have reviewed and agree with the medication history note completed by the medication historian as documented above. All medications reviewed and reconciled appropriately. Nilsa Ortzi, PharmD, [facility] Nursing Unit Based Pharmacist Ext: [phone] NoteHNO ID: [id number] Author: Daniella Strickland APRN.AUTOMOBILE TIRE BUILDER Service: Neurology ICU Author Type: Nurse Practitioner Type: Progress Notes Filed: 06/08/2023 6:24 AM Note Text: Patient arrived from [place]. Exam stable. Still with left sided dysmetria. GOLDMAN and nausea controlled. She is on RA and protecting airway. We will hold Chemo VTE ppx until need for decompression ruled out. Full note to follow. Stroke Care path started.[facility]11-11-2023 NoteHNO ID: [id number] Author: Yoana Crawford MD Service: ? Author Type: Fellow Type: Progress Notes Filed: 06/07/2023 7:03 PM Note Text: Stroke Neurology Plan of Care Paged by regarding transfer request for pt currently residing at [facility]. Spoke to Dr. Up for the following information. 83F who presented yesterday for 1 day of feeling off balance and falling to the left with n/v. LKW 06/05. [facility] NAP. MRI and CTA showed acute L [...] at facility with endovascular capability. Cont [facility] is closest for this. Advised transfer to [facility]. Supervising attending: Dr. Lu. Yoana Crawford MD Vascular Neurology Fellow PGY-5 June 07, 2023 6:[address] [facility]11-11-2023 History of Present illness Narrative* Yoana Crawford MD - 06/07/2023 6:51 PM EST Stroke Neurology Plan of Care Paged by regarding transfer request for pt currently residing at [facility].Spoke to Dr. Up for the following information. 83F who presented yesterday for 1 day of feeling off balance and falling to the left with n/v. LKW 06/05. [facility] NAP. MRI and CTA showed acute L [...] at facility with endovascular capability. [facility] is closest for this. Advised transfer to [facility]. Supervising attending: Dr. Lu. Yoana Crawford MD Vascular Neurology Fellow PGY-5 June 07, 2023 6:57 PM [facility] Discharge instructions Patient Education 02/12/2022 [...] including vitamins, herbs, eye drops, creams, and ntio-vak-fkdiwmj medicines. Any problems you or family members [...] 10/03/2004 Document Revised: 01/03/2020 Document Reviewed: 11/04/2016 [employer] Patient Education 2020 [employer] 02/12/2022 12:57:46 Total Knee Replacement, Care [...] Follow these instructions at home: Medicines Take atxt-yfi-hdcyngi and prescription medicines only as told by [...] to keep your urine pale yellow. ?Take wexa-ohu-pcacanj or prescription medicines. ?Eat foods that are [...] and water are not available, use hand supervisor pipeline. ?Change your dressing as told by your [...] 01/31/2006 Document Revised: 11/22/2019 Document Reviewed: 02/25/2019 [employer] Patient Education 2020 [employer]. Follow Up Care 01/15/2022 07:38:49 With:DISHA GLOVER PA-C, Orthopedic Address: [facility] [address] [place] [address]- When:02/28/2022 [facility] 07-19-2022 Summary of episode note Discharge Instructions Thank you for allowing [facility] to assist you with your healthcare needs. The following is importantdischarge information regarding your hospital visit. Your Care Team MITUL SCHAFFER MD What to do next Scheduled Follow-Up Appointments Appointment Type When Where Contact InformationCV Procedure - AOH Echo 06/27/2022 09:00 AM [facility] Radiology CV OV 08/01/2022 10:00 AM EST [facility] Follow Up with DISHA GLOVER PA-C, Orthopedic When 02/28/2022 03:15 AM EDT Where: [facility] [address] [address]- The Following Activity and Diet Have Been [...] The extended-release form of oxycodone is for xeilif-vhc-knqoh treatment of pain and should not be [...] against the law. Stop taking all other zhxffp-lts-mchzj opioid pain medicines when you start taking [...] may report side effects to FDA at 7-365-KNG-0713. What other drugs will affect oxycodone? You [...] drugs may affect oxycodone. This includes prescription hzxyrpf-sov-fqqeiel medicines, vitamins, and herbal products. Not all [...] to ensure that the information provided by [employer]. ('[employer]') is accurate, up-to-date, and complete, but no guarantee is made to that effect. Drug information contained herein may be time sensitive. [employer]™ information has been compiled for use by healthcare practitioners and consumers in the [place] and therefore [employer]™ does not warrant that uses outside of the [place] are appropriate, unless specifically indicated otherwise. [employer] drug information does not endorse drugs, diagnose patients or recommend therapy. [employer] drug information isan informational resource designed to [...] effective or appropriate for any given patient. [employer]™ does not assume any responsibility for any aspect of healthcare administered with the aid of information [employer]™ provides. The information contained herein is not intended to cover all possible uses, directions, precautions, warnings, drug interactions, allergic reactions, or adverse effects. If you have questions about the drugs you are taking, check with your doctor, nurse or pharmacist. Copyright 8900-1278 [employer]. Version: 14.02. Revision Date: 08/24/2020. Education Materials [...] including vitamins, herbs, eye drops, creams, and fxys-edm-gqaaoau medicines. Any problems you or family members [...] 10/03/2004 Document Revised: 01/03/2020 Document Reviewed: 11/04/2016 [employer] Patient Education 2020 [employer]. Total Knee Replacement, Care After This sheet [...] Follow these instructions at home: Medicines Take dyaz-zwb-wfcnajh and prescription medicines only as told by [...] keep your urine pale yellow. ? Take tupf-uic-obfpdci or prescription medicines. ? Eat foods that [...] and water are not available, use hand supervisor pipeline. ? Change your dressing as told by [...] 01/31/2006 Document Revised: 11/22/2019 Document Reviewed: 02/25/2019 [employer] Patient Education 2020 [employer] Additional Information VACCINATE! IT SAVES LIVES! Members of the community who have not yet received the COVID-19 vaccine and would like to receive it can visit one of [facility] vaccine clinics. There are many vaccine clinic locations within the [facility]. For locations and available times, please visit [email or web address]/. It is important to note that some COVID mobile vaccine clinics are held outdoors and may be canceled in rainy or stormy conditions. To learn more about pediatric vaccinations (ages 5-11), we invite you to visit the [facility] webpage. [email or web address]://[email or web address]/pages/[email or web address]-Gnknukjbvg-Abbob-[email or web address] stions.htmlTo learn more about the COVID-19 vaccine, we invite you to visit the [facility] website for a list of frequently asked questions. [email or web address]-[email or web address]/pagoj-Zptyrtg-Poiepktqnt _[email or web address]-Questions.pdf [facility] [employer] Patient Portal Access Instructions: Stay connected with your healthcare team and access your personal medical information anytime with the [facility] Patient Portal.If you would like a full copy of your medical records, please contact the [facility] Medical Records Department, Friday through Friday between 8a.m. and 4:30p.m. Please follow the directions below to access the portal: 1.Access the email account you provided upon registration to the [facility].2.Look for an invitation email from [facility].3.Open the email and access the invitation link: Accept Invitation to [facility]4.Fill in the required tristan to create your account. Sign into [email or web address] with your username and password that you [...] you will allow to register on the [facility] Patient Portal for access to your information. You can also access the [facility] Patient Portal on the ByRead. Simply click on Health Records under [employer] and then click on the [employer] logo. HOW TO SAFELY DISPOSE OF PRESCRIPTION [...] Call your local pharmacy or go to [email or web address] to find one close to you.3.Make use of household items: Use cat litter or old coffee grounds to dispose medications if other options arenot available. Mix your drugs with these household products, seal them in an airtight container andthrow it into the garbage. Call [facility]: [phone] to be sure your drugs can be [...] aware that I should contact my doctor. Patient/Maintenance Helper Signature: Date/Time: Relationship to Patient: Witness Name/Signature: Date/Time: [facility]07-19-2022 Anesthesiology Consult note Patient: LIBAN TRACEY Age: [...] by HARRIET STEPHENSON on 02/12/2022 11:01 AM [facility]07-19-2022 Note ORIGINAL EXAMINATION: KNEE 2 radiographic VIEWS [...] Sign Date: 02/12/2022 10:06:48 AM Ordering Provider: [address]19-2022 Note ORIGINAL EXAMINATION: KNEE 2 radiographic [...] Sign Date: 02/12/2022 10:06:48 AM Ordering Provider: [place] [address]-19-2022 Anesthesiology Consult note Patient: LIBAN TRACEY Age: 82 years Sex: Female : 1940 Associated Diagnoses: None Author: HARRIET STEPHENSON APRN-POT FIRER Preoperative Information Anesthesia history Patient's history: negative. [...] Medical Basal cell carcinoma / SNOMED CT 0664169 / Confirmed CVA (cerebrovascular accident) / SNOMED CT 773225661 / Confirmed H/O: CVA / SNOMED CT 314746408 / Confirmed Mitral valve stenosis / SNOMED CT 836567624 / Confirmed, Active Problems (5) Arthritis Basal cell carcinoma CVA (cerebrovascular accident) H/O: CVA Mitral valve stenosis Histories Past Medical History: No active or resolved past medical history items have been selected or recorded. Family History: Stroke Mother Sister Procedure history: Echocardiogram ([id number]) on 12/15/2020 at 80 Years. Comments: 03/13/2021 9:47 EDT - Eden Ravi MA (ABR-OE) IMPRESSION : The estimated EF is 60%. severe mitral valve stenosis. Unable to assess diastolic dysfunction. The left atrium is mildly enlarged. Arthroscopy of knee joint ([id number]). Comments: 01/29/2022 10:08 Isabel Jewell RN bilateral Carpal tunnel release ([id number]). Comments: 01/29/2022 10:08 Isabel Jewell RN right Tonsillectomy ([id number]). Social History Social & Psychosocial Habits Alcohol [...] Resp Rate 15 br/min (FEB 12 05:59) DAW616 mmHg (FEB 12 05:59) DBP68 mmHg (FEB 12 05:59) Measurements from flowsheet : Measurements 02/12/2022 5:59 EDT Height 155 cm Height in inches 61 inch(es) Admission Weight 78.2 kg Weight Lbs 172 lb Windfall Body Weight 47.85 kg Admission Body Mass [...] Surgeon SN - CAt - Role Performed POT FIRER SN - CAt - Role Performed Area Director Of Home Health Sales 1 SN - CAt - Role Performed Technical Manager 1 SN - CAt - Role Performed Scrub 1 SN - CAt - Role Performed Physician Quality Control Checker SN - CAt - Role Performed X-Ray Tech SN - CAt - Role Performed Assembler [employer] 02/12/2022 6:45 EDT famotidine 20 mg mg Lactated Ringers Injection 1,000 mL mL 02/12/2022 6:28 EDT citric acid-sodium citrate Not Done: Other (Not Done) 02/12/2022 5:59 EDT Height 155 cm Height in inches 61 inch(es) Admission Weight 78.2 kg Weight Lbs 172 lb Windfall Body Weight 47.85 kg Admission Body Mass Index 32.55 m2 Temperature Temporal Artery 36.3 DegC Apical Heart Rate 86 bpm Respiratory Rate 15 br/min Systolic Blood Pressure NBP 139 mmHg Diastolic Blood Pressure NBP 68 mmHg Primary Pain Intensity 0 Pain Scale Type 0-10 Pain scale Monitor Alarms On and Limits Checked Nail Bed Color Ulen Capillary Refill < 2 seconds Heart Rhythm Regular All Lobes Breath Sounds Clear Oxygen Therapy Room air Oxygen Saturation 98 % Abdomen Description Non-distended Abdomen Palpation Non-Tender Bowel Sounds All Quadrants Present Urinary Elimination Voiding, no difficulties Skin Temperature Warm Skin Description Normal for ethnicity Skin Integrity Intact Mucous Membrane Color Ulen IV Present Present Extremity Movement Equal Characteristics [...] Pants, Shoes, Socks, Sweatshirt, Undergarments, Walker, Other: [facility] Activity Status ADL Awake, Resting Assistive [...] no symptoms Safety Brochure Information Reviewed Yes [facility] Video Viewed No Teaching Evaluation Verbalizes/Nonverbally indicates understanding Admission Note-Nursing Same Day Patient History (Modified) . Assessment and Plan [place] [employer] Anesthesiologists (ASA) physical status classification: Class III. Anesthetic Preoperative Plan Anesthetic technique: Spinal. Regional: Spinal. Postoperative pain management: adductor canal block. Risks discussed: nausea, vomiting, headache, hypotension, allergic reaction, serious complications. Informed consent: signed by patient. Digitally Signed by HARRIET STEPHENSON on 02/12/2022 06:48 AM [facility]07-05-2022 Note ORIGINAL EXAMINATION: CT OF THE LEFT [...] Sign Date: 01/29/2022 12:26:30 PM Ordering Provider: [facility]07-05-2022 Note ORIGINAL EXAMINATION: CT OF THE LEFT [...] Date: 01/29/2022 12:26:30 PM [facility]ments Appointment Date:02/14/2022 08:45:00 AM Scheduled Provider: Location:[facility] Appointment Type:CV OV Appointment Date:06/27/2022 09:00:00 AM Scheduled Provider: Location:RAD Appointment Type:CV Procedure - AOH Echo Appointment Date:08/01/2022 10:00:00 AM Scheduled Provider: Location:[facility] Appointment Type:CV OV [facility] Evaluation + Plan note Future Appointments Appointment Date:06/27/2022 09:00:00 AM Scheduled Provider: Location:RAD Appointment Type:CV Procedure - AOH Echo Appointment Date:08/01/2022 10:00:00 AM Scheduled Provider: Location:[facility] Appointment Type:CV OV [facility] Evaluation note* Diagnosis Cerebellar stroke (HCC)- Primary documented in this encounter [facility] course Narrative No data available for this section [facility] Hospital Discharge instructions No data available for this section [facility] Progress note No data available for this section [facility] Summary Purpose Family History No Family History [...] Member Role: Primary Care Physician Address: Address: [address] [place] [address]- Care Team Related Persons Name: ZORA HEBERT Care Team Personnel Name: MITUL SCHAFFER MD Member Role: Primary Care Physician Address: Address: [facility] [address] [place] [address]- Care Team Related Persons Name: ZORA HEBERT Care Team Personnel Name: MITUL SCHAFFER MD Member Role: Primary Care Physician Address: Address: [facility] [address] [place] [address]- [place] Care Team Related Persons Name: ZORA HEBERT INFORMATION SOURCE (unrecogn ized section and content) DATE CREATED AUTHOR AUTHOR'S ORGANIZ ATION 06/12/2023 [facility] DATE CREATED AUTHOR AUTHOR'S OR[facility]IZ AT[facility] Comments (unrecognize d section and content) In the event this informatio n is protected by the Federal Confidentiality of Alcohol and Drug Abuse Patient Records regulations: The Federal rules restrict any use of the information to criminally investigate or prosecute any alcohol or drug abuse patient.[facility] the event this information is protected by the Federal Confidentiality of Alcohol and Drug Abuse Patient Records regulations: The Federal rules restrict any use of the information to criminally investigate or prosecute any alcohol or drug abuse patient[facility] Reason for Visit (unrecogniz ed section and content) Referral ID Status Reason Start Date Expiration Date V isits Requested Visits Authorized [id number] New Request 06/13/2023 08/12/2023 FOR RECORDS PERTAINING [...] BE BASED ON THE PRIMARY CLINICAL RECORDS. [employer] provides no warranty or guarantee of the accuracy or completeness of information in this document.
--- NOTE | 2023-08-18 14:56 | CHAPLAIN ---
Type of Pastoral Visit _x__ Initial Visit ___ Follow-up Visit ___ On-call Visit ___ General Patient Visit ___ Spiritual Assessment ___ Family Conference ___ Bereavement ___ Rapid Response ___ Code Blue ___ Other (describe below) Pastoral Care Referral From _x__ Patient ___ Family ___ Nurse ___ Physician ___ Cremator ___ Cattle Shipper ___ Other (describe below) Sacrament/Intervention _x__ Active listening ___ Anointing ___ Religion ___ Bereavement ___ Communion ___ Paula exploration ___ ___ Life review _x__ Prayer ___ Reconciliation ___ Sacrament of Sick _x__ Supportive presence ___ Wedding ___ Other (describe below) Pastoral Comments patient answers questions but keeps her head down, continues to work on a word search, and appears to be apathetic to her situation; daughter and son-in-law are in the room; the gentleman is a sustainability officer and so is another son-in-law; pt acknowledges that she has support but would welcome a prayer; pt does not engage
[2023-08-18] MEDS: Atorvastatin Calcium 80 MG Tablet PO (20:16)
[2023-08-19 03:00] VITALS: BP 144/66; PULSE 60; RESP 16; TEMP 36.6; O2SAT 97
--- NOTE | 2023-08-19 06:00 | NURSING ---
0550 pt found sitting on floor. pt was on bsc with walker and call light. assisted back to bed. pt admits i knew better than to try to get up, theres no way i could catch myself . 150/75 HR 73 150/75 RR 16. pt very upset . wants to get back up to bsc for bowel movement. offered pt bedpan. pt refused. pt repositioned for comfort, and call light in reach.
--- NOTE | 2023-08-19 06:05 | NURSING ---
Addendum entered by Chen Barton 08/19/23 06:28: upon talking with TUB RIDER in [facility], who was next door, says she didnt hear the pt fall, only the walker Original Note: no new bruises or open areas found. pt states current bruises are from fall at home.
[2023-08-19 08:39] VITALS: BP 147/83; PULSE 90; RESP 14; TEMP 36.6; O2SAT 97
[2023-08-19] MEDS: Aspirin E.C. 81 MG Tablet PO (08:45)
[2023-08-19] MEDS: Clopidogrel Bisulfate 75 MG Tablet PO (08:45)
--- NOTE | 2023-08-19 09:49 | CASEMGMT ---
Discharge Planning Adrián Trimble has received auth. SW updated. Kylie Shelton, Discharge Planning Asst.
--- NOTE | 2023-08-19 11:04 | CASEMGMT ---
SW notified physician that patient was approved. SW also notified patient's family. Await orders. Caro STOKES
[2023-08-19] MEDS: Ondansetron 4 MG/2 ML Vial IV (11:51)
[2023-08-19] MEDS: 0.9% Saline Lock 10 ML Syringe IV (11:53)
--- NOTE | 2023-08-19 13:23 | TREXTCAR_ITS ---
Diet Diet Order/Speech Therapy: 08/14/23 14:04 Diet: Cardiac - Heart Healthy Food consistency:: Regular Liquid Consistency:: Regular/Thin Diet Comments: Distant supervision, oral care after meals, alt bites/sips Routine Orders/Code Status Suppository Type: Dulcolax 10mg Suppository Frequency: Daily PRN Therapies Weight Bearing: Weight bearing as tolerated Extremity Affected:: Bilateral Lower Physical Therapy: Eval and Treat Occupational Therapy: Eval and Treat Speech Therapy: Eval and Treat Problem/Diagnosis (1) CVA (cerebral vascular accident): Status: Acute Code(s): I63.9 - Cerebral infarction, unspecified Plan 1. 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 She has had 2 previous strokes 1 cerebellar is the most recent and had to be transferred to a tertiary center as there is a concern for vertebral artery thrombus though family states no intervention was done the outside hospital and after discharge she had no residual deficits ?With her other stroke she did not have any left facial droop or left-sided weakness ? She is already on aspirin and Plavix as well as Lipitor will continue with telemetry, will need a 30-day event monitor on discharge however she may be going to a [facility] ? Lipitor increased from 40 mg to 80 mg nightly ? MRI with multiple subacute infarcts in the periventricular white matter of the right parietal lobe, continue with her antiplatelets Patient was seen by [facility] neurologist and recommended to continue DAPT.. From a stroke standpoint will need long-term antiplatelet agent but defer to primary neurologist. Continue statin to keep LDL less than 70. 30-day event monitor. ?She was supposed to wear Holter monitor after her last admission after she was transferred to [facility] but that does not appear to have occurred current telemetry does not indicate A-fib A1c 5.6%. ? Permissive hypertension ? Will not repeat an echo she had 1 in May with a normal EF of 65% and severe mitral valve stenosis, her PASP was 45 to 50 mmHg and the bubble study was negative ?Continue with Zoloft for mood disturbance given her medical situation DVT: SCDs Continue PT and OT and pre-CERT. Discharged with 30-day event monitor. Patient follows Dr. Broussard. Allergies/Procedures Done in Hospital Allergies No Known Allergies Allergy (Verified 07/29/23 09:14) Type of Care/Length of Stay Estimated LOS: Convalescent Care Less Than 30 days Type of Care Needed: Skilled Rehab Potential: Good Prognosis: Good Additional Orders/Day of Discharge Day of Discharge: 08/19/23 Dietary and Speech Recommendations Dietitian Recommendations/Changes: Will continue Cardiac diet as ordered Will order ensure plus high protein ONS at medpass 4x/day for increased nutrition if consumed. Available if diet education desired prior to d/c Speech Linguistic Eval Summary: Patient lived at home independently prior to this CVA. Orientation: Fully oriented to self, age, , address, time, place, and full date. Auditory Comprehension: Yes/no questions (moderate) - 5/5 acc. Multistep directions (3-5 steps) - 3/5 acc. Verbal Expression: Repetition of words - 9/10 acc, Repetition of phrases - 7/10 acc. Confrontation naming of objects - 10/10 acc. Divergent naming (concrete) - 15 items in 60 sec. Divergent naming (abstract) - 8 items in 60 sec. Pt's speech was 100% intelligible; however, she had intermittent imprecise articulation, especially speaking or repeating multisyllabic words. She also has a slow rate of speech, although speech is fluent. Informal dysarthria assessment (Females aged 74-86) - Diadochokinetic rates: Repeated /p^/ - 4.3 syllables per second (WNL = 4.1-7.6). Repeated /t^/ - 4.2 syllables per second (WNL = 3.9-7.2). Repeated /k^/ - 3.5 syllables per second (WNL = 3.2-6.9). Repeated /p^t^k ^/ - 0.9 syllables per second (WNL = 4.3-6.9). Sustained ?ah?- 3.85 seconds (WNL = at least 14 seconds). Memory: Immediate recall of 3-word list - 3/3 acc, 5-min delayed recall of 3- word list - 3/3 acc. Social Interaction: Good topic maintenance. Pt appropriately responded in all conversation exchanges. The patient presents with mild dysarthria characterized by slowed rate and imprecise articulation. Goals added to POC to address deficits in speech clarity. The patient presented with two errors completing 4-5 step commands. While the patient did not present with any major indicators of cognitive-linguistic impairment from this informal cognitive-linguistic assessment, she is presenting with slowed processing and response time per family. OFFSHORE WIND TURBINE TECHNICIAN will recommend a full cognitive-linguistic assessment to include evaluation of executive functioning, attention, and auditory comprehension at next level of care as the patient was functioning independently in her home prior to this CVA. OFFSHORE WIND TURBINE TECHNICIAN spoke with case management re: recommendation for inpatient rehab. manager data warehouse stated they are already in the referral process for discharge to inpatient rehab. Discharge Plan Admission Admit Date/Time: 08/15/23 12:17 Primary Reason for Your Visit: Acute on recurrent a stroke Attending Provider: Richard Mistry Primary Care Provider: Ap Rutherford Consulting Providers: Jorge French; Jamal Webster; Swati Lobo; Kathi Alejo; Clemencia Summers; Devan Zepeda; Azucena Brantley; Buddy Arellano; Vivek Silverman; Yareli Munguia; Holger Wise; Rita Manzano; Glory Norris; Dia Burrows; Jc Steen; Natalee Sandra; Lorenzo Connelly; Nabila Crane; Jose Casey; Mukul Franco Discharge Orders/Prescriptions Prescriptions: New atorvastatin 80 mg Tablet 80 mg PO QHS Qty: 30 2RF lisinopril 5 mg tablet 5 mg PO DAILY Qty: 30 2RF sertraline 50 mg Tablet 50 mg PO DAILY Qty: 0 0RF Continued aspirin [Adult Aspirin Regimen] 81 mg tablet,delayed release (DR/EC) 81 mg PO DAILY Hold Instructions: MD Ordered multivitamin [Multiple Vitamins] Tablet 1 tab PO DAILY clopidogrel 75 mg tablet 75 mg PO DAILY Qty: 30 0RF Rx Instructions: Recommend to continue 90 days from 08/14/2023. Discontinued atorvastatin 40 mg tablet 40 mg PO DAILY Referrals / Follow Up: Ap Rutherford MD [Primary Care Provider] - Within 2 Weeks Valdo Izquierdo MD [Non-Staff -Ordering Privileges] - Within 1 Month Disposition Disposition (needs filled in before D/C Order can be placed): Home, Self Care
[2023-08-19 13:28] VITALS: BP 128/59; PULSE 89; RESP 12; TEMP 36.2; O2SAT 97
--- NOTE | 2023-08-19 13:29 | PCM.DC.SUM ---
Providers Date of Admission: 08/15/23 Date of Discharge: 08/19/23 Primary Care Physician: Dr. Ap Rutherford MD Consultations 08/15/23 07:51 Consult: Tele-Neurology Routine Consulting Provider: [facility] Reason for Consult: Subacute Right parietal CVA EMERGENT Consult: No MD Notified: Yes Date Notified: 08/15/23 Time Notified: 08:12 Method of Notification: Answering Service Nursing Unit Staff Notify [facility] of Tele-Neurology Consult: Yes Reason For Visit: CVA RULE OUT Diagnosis Discharge Diagnosis (1) CVA (cerebral vascular accident): Status: Acute Code(s): I63.9 - Cerebral infarction, unspecified Plan 83-year-old female was admitted with left facial droop and apathy more than her baseline. She has history of multiple recurrent a stroke, most recent in May 2023 when she had cerebellar stroke. 1. 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 She has had 2 previous strokes 1 cerebellar is the most recent and had to be transferred to a tertiary center as there is a concern for vertebral artery thrombus though family states no intervention was done the outside hospital and after discharge she had no residual deficits ?With her other stroke she did not have any left facial droop or left-sided weakness ? She is already on aspirin and Plavix as well as Lipitor will continue with telemetry, will need a 30-day event monitor on discharge however she may be going to a detention ? Lipitor increased from 40 mg to 80 mg nightly ? MRI with multiple subacute infarcts in the periventricular white matter of the right parietal lobe, continue with her antiplatelets Patient was seen by [facility] neurologist and recommended to continue DAPT.. From a stroke standpoint will need long-term antiplatelet agent but defer to primary neurologist. Continue statin to keep LDL less than 70. 30-day event monitor. ?She was supposed to wear Holter monitor after her last admission after she was transferred to [facility] but that does not appear to have occurred current telemetry does not indicate A-fib A1c 5.6%. 08/19: Patient discharged on aspirin, Plavix and atorvastatin 80 mg daily. Prescription also given for lisinopril 5 mg daily. Patient follows patient follows neurologist Dr. Izquierdo in 1 month. discharged on 30-day event monitor. ? Permissive hypertension ? Will not repeat an echo she had 1 in May with a normal EF of 65% and severe mitral valve stenosis, her PASP was 45 to 50 mmHg and the bubble study was negative For anxiety and depression ?Continue with Zoloft for mood disturbance given her medical situation. Zoloft continued. DVT: SCDs Patient is being discharged to SNF. Discharge medication reconciliation done. Discharge follow-up instructions completed. Discharge process discussed with the patient and all questions were answered to patient's satisfaction. Follow with PCP in 1 to 2 weeks Total time spent, exact 35 minutes on discharge meds reconciliation, examination, coordination of care with nurses and ancillary staff, review of imaging and blood test and discussion with the patient on follow-up instructions. Medications at Discharge Home Medications aspirin 81 mg tablet,delayed release (Adult Aspirin Regimen) 81 mg PO DAILY HEART HEALTH 01/24/21 multivitamin (Multiple Vitamins tablet) 1 tab PO DAILY SUPPLEMENT 08/14/23 atorvastatin 80 mg tablet 80 mg PO QHS #30 tabs 08/19/23 clopidogrel 75 mg tablet 75 mg PO DAILY BLOOD THINNER #30 tabs 08/19/23 lisinopril 5 mg tablet 5 mg PO DAILY #30 tabs 08/19/23 sertraline 50 mg tablet 50 mg PO DAILY #0 tabs 08/19/23 Physical Exam Narrative Seen and examined. Patient looks apathetic, mildly depressed. Otherwise no acute change. Patient has left upper extremity weakness and left-sided facial droop. Denies any change in the speech, either sensory or motor/difficulty in comprehension, reading or writing. Patient states she had 2 strokes in the past Physical exam General: Alert, Oriented x3, Cooperative HEENT: Atraumatic, PERRLA, EOMI, Normocephalic Oral: No Gingival or Mucosal Lesions/ Ulcerations Neck: Supple, No JVD, Negative Carotid Bruits Lungs: Air entry diminished in bilateral lung bases. No crepitation/rhonchi Cardiovascular: Regular rate, Regular Rhythm, Normal S1, Normal S2, No murmurs Abdomen: Bowel Sounds Present, Soft, Non Tender, Non-Distended : Denies dysuria. No renal angle tenderness. No suprapubic tenderness. Extremities: No edema, Capillary Refill Less than 3 Seconds Skin: No rashes, No breakdown Musculoskeletal: Left upper extremity weak. History of left knee surgery. Chronic weakness of both lower extremities. Neurological: Left facial nerve palsy. DTR 2+/4. Left upper extremity weakness and facial droop. Psych/Mental Status: Looks depressed. Apathy. Flat affect. Weight / BMI Weight Weight: 163 lb 5.8 oz Body Mass Index (BMI) 30.9 ABG / Lab / Microbiology Data 08/18/23 05:25 08/18/23 05:25 Microbiology: Microbiology 08/14/23 11:26 Urine, Clean Catch Urine Culture - Final Culture exhibits no growth. Meaningful Use Info Meaningful Use Diagnoses (Choose all that apply): Ischemic CVA CVA Therapy Assessed for PT,OT and/or ST?: Yes Ischemic Stroke Antithrombotic order at d/c?: Yes Dx of Atrial fib/flutter?: No Anticoagulant at discharge?: Yes Statins at discharge?: Yes Primary Dx Acute Ischemic CVA?: Yes Discharge Plan Admission Admit Date/Time: 08/15/23 12:17 Primary Reason for Your Visit: Acute on recurrent a stroke Attending Provider: Richard Mistry Primary Care Provider: Ap Rutherford Consulting Providers: Jorge French; Jamal Webster; Swati Lobo; Kathi Alejo; Clemencia Summers; Devan Zepeda; Azucena Brantley; Buddy Arellano; Vivek Silverman; Yareli Munguia; Holger Wise; Rita Manzano; Glory Norris; Dia Burrows; Jc Steen; Natalee Sandra; Lorenzo Connelly; Nabila Crane; Jose Casey; Mukul Franco Discharge Orders/Prescriptions Prescriptions: New atorvastatin 80 mg Tablet 80 mg PO QHS Qty: 30 2RF lisinopril 5 mg tablet 5 mg PO DAILY Qty: 30 2RF sertraline 50 mg Tablet 50 mg PO DAILY Qty: 0 0RF Continued aspirin [Adult Aspirin Regimen] 81 mg tablet,delayed release (DR/EC) 81 mg PO DAILY Hold Instructions: MD Ordered multivitamin [Multiple Vitamins] Tablet 1 tab PO DAILY clopidogrel 75 mg tablet 75 mg PO DAILY Qty: 30 0RF Rx Instructions: Recommend to continue 90 days from 08/14/2023. Discontinued atorvastatin 40 mg tablet 40 mg PO DAILY Other Ambulatory Orders: 30 Day Event Recorder Preventi (Urgent) Timeframe: 1 Day Facility: [facility] - Location: Cardiovascular Services Ordered By: Dr. Richard Mistry Referrals / Follow Up: Ap Rutherford MD [Primary Care Provider] - Within 2 Weeks Valdo Izquierdo MD [Non-Staff -Ordering Privileges] - Within 1 Month Disposition Disposition (needs filled in before D/C Order can be placed): Home, Self Care Charges/Coding Visit Charges Inpatient E&M: 27842 Disch Hosp >30min
--- NOTE | 2023-08-19 14:42 | CASEMGMT ---
Patient is ready for discharge to [facility] and insurance approved. CHERELLE called [facility] and arranged for patient to get picked up at 3:30p. CHERELLE notified patient, family, RN, and loan secretary. CHERELLE sent orders and rock picker time to [facility] via [facility]. CHERELLE completed a 7000 in [employer] system. Plan: d/c to [facility] under skilled level of care on a convalescent stay. [facility] will transport patient via cot. Caro STOKES
== END 2023-08-19 15:35 | disposition home or self-care (01) | DRG 65 ==
LOC: ED 12:30 → PCU 13:14
PROVIDERS: Admitting Provider Family Medicine; Emergency Provider Emergency Medicine; PCP Family Medicine; Visit Provider Internal Medicine
DX: I63.89 Other cerebral infarction (principal); G81.94 Hemiplegia, unspecified affecting left nondominant side; I27.21 Secondary pulmonary arterial hypertension; I48.91 Unspecified atrial fibrillation; F32.A Depression, unspecified; R26.2 Difficulty in walking, not elsewhere classified; F41.9 Anxiety disorder, unspecified; R47.1 Dysarthria and anarthria; R29.706 NIHSS score 6; R29.810 Facial weakness; Z79.82 Long term (current) use of aspirin; Z79.02 Long term (current) use of antithrombotics/antiplatelets; Z79.899 Other long term (current) drug therapy; Z86.73 Personal history of transient ischemic attack (TIA), and cerebral infarction without residual deficits
CPT/HCPCS: 36415; 70450; 70496; 70551; 71045; 80048; 80061; 81001; 82550; 83036; 85025; 85610; 85730; 87086; 92507; 92523; 92610; 93005; 94762; 97110; 97163; 97166; 97530; 97535; 97802; 99285; J7030; Q9967; A4216; J2405

== ENCOUNTER → 2023-09-30 | Outpatient (CLI) | payer MEDICARE, SELFPAY ==
--- NOTE | 2023-09-30 12:35 | RAD_ITS ---
INDICATION: trauma, lateral proximal hand pain EXAMINATION/TECHNIQUE: X-RAY - LEFT XR Hand Min 3 Views 3 VIEWS COMPARISON: No relevant prior comparison study available FINDINGS: SOFT TISSUES: No soft tissue swelling or gas. No radiopaque foreign body. BONES/JOINTS: No evidence of acute fracture or dislocation. Sclerotic line in the scaphoid but no fracture line is seen. If symptoms persist, follow-up exam might be helpful. Degenerative arthrosis of the first carpometacarpal joint. Small well-defined bony densities adjacent to the base of the fifth metacarpal due to old injury. No sclerotic or destructive changes observed. RAD/Hand Min 3 Views IMPRESSION: 1. No evidence of acute fracture. 2. Degenerative arthrosis. Electronically Signed: Tanmay Kurtz MD at 8:14 EST ,
--- NOTE | 2023-09-30 12:46 | RAD_ITS ---
INDICATION: lateral left distal hand pain EXAMINATION/TECHNIQUE: X-RAY - LEFT XR Wrist 3 Views COMPARISON: None. FINDINGS: 3 views of the left wrist were obtained. Soft tissue swelling at the ulnar aspect of the wrist. No acute fracture is identified. Degenerative changes at the first carpometacarpal joint. RAD/Wrist min 3 Views IMPRESSION: No acute fracture identified. Electronically Signed: Chris Aquino MD at 23:11 EST ,
--- OUTSIDE RECORDS SUMMARY | 2023-09-30 13:10 | XMS RPT_ITS | CCD ---
Author Name Unknown Address [id number] [place] [address] Organization [facility] Care Team Providers Care Senior Loss Control Specialist Name Role Phone KARIME EDWARD, MITUL Levy Primary Care Physician [phone] TANIA JAFFE MD Attending Unavailable KARIME CASTELLANOS, MITUL A Primary Care Unavailable DIALLO KENNY MD, TESSA Attending Unavail tonie RUTHERFORD MD., MITUL A Primary Care Unavailable KARIME CASTELLANOS, MITUL A Primary Care Unavailable TANIA JAFFE MD Attending Unavailable KARIME CASTELLANOS, MITUL A Primary Care Unavailable TANIA JAFFE MD Attending Unavailable DIALLO KENNY MD, TESSA Attending Unavail tonie RUTHERFORD MD., MITUL A Primary Care Unavailable Unavailable Primary Care Provider UnavailARLENE Saldivar Referring Unavailable GUZMAN ALMODOVAR Attending Unavailable GUZMAN ALMODOVAR Admitting Unavailable ABDON CALI Attending Unavailable ABDON CALI Admitting Unavailable HERBERT LANGE Consulting Unavailable Mitul Rutherford Primary Care Provider RUSS HURST Attending Unavailable MITUL RUTHERFORD Primary Care Unavailable Medications Current Medications Medication Drug Class(es) [...] by mouth once daily. 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] Onset: 06-09-2023 03-13-2021 Chronic Malaise and fatigue (8 sources) Fatigue; Translations: [Other fatigue] Onset: 09-06-2023 09-06-2023 Episodic Mycoses (6 sources) Candidiasis of vagina; Translations: [Yeast vaginitis] Onset: 09-06-2023 09-06-2023 Episodic Other and ill-defined cerebrovascular disease (1 source) [...] Unclassified (3 sources) Basal cell carcinoma 03-13-2021 Unclassified (1 source) Acute candidiasis of vulva and vagina; Translations: [Acute candidiasis of vulva and vagina] Onset: 09-06-2023 Past or Other Problems Problem Classification Problem Date Documented Da te Episodic/Chronic Unclassified (1 source) Acute candidiasis of vulva and vagina; Translations: [Acute candidiasis of vulva and vagina] Onset: 09-06-2023 Results Test Name Value Interpretation Reference Range Facil ity Vital Signs Date Time Vital Sign Value Performing Clinician Faci lity 09-06-2023 03:12-0500 Diastolic blood pressure 63 mm[Hg] Russ Hurst MD Work Phone: [facility] 09-06-2023 03:12-0500 Heart rate 88 /min Russ Hurst MD Work Phone: [facility] 09-06-2023 03:12-0500 Respiratory rate 14 /min Russ Hurst MD Work Phone: [facility] 09-06-2023 03:12-0500 SaO2% (BldA) [Mass fraction] 98 % Russ Hurst MD Work Phone: [facility] 09-06-2023 03:12-0500 Systolic blood pressure 112 mm[Hg] Russ Hurst MD Work Phone: [facility] 09-05-2023 23:30-0500 Body temperature 97.5 [degF] Russ Hurst MD Work Phone: [facility] 02-12-2022 12:45-0400 Diastolic Blood Pressure NBP [address] TANIA JAFFE MD [facility] 02-12-2022 12:45-0400 Heart rate 93 /min DR TANIA JAFFE MD [facility] 02-12-2022 12:45-0400 Respiratory rate 16 /min DR TANIA JAFFE MD [facility] 02-12-2022 12:45-0400 Systolic Blood Pressure NBP [address] TANIA JAFFE MD [facility] 02-12-2022 10:55-0400 Diastolic Blood Pressure NBP [address] TANIA JAFFE MD [facility] 02-12-2022 10:55-0400 Heart rate 89 /min DR TANIA JAFFE MD [facility] 02-12-2022 10:55-0400 Respiratory rate 16 /min DR TANIA JAFFE MD [facility] 02-12-2022 10:55-0400 Systolic Blood Pressure NBP [address] TANIA JAFFE MD [facility] 02-12-2022 10:15-0400 Diastolic Blood Pressure NBP [address] TANIA JAFFE MD [facility] 02-12-2022 10:15-0400 Heart rate 92 /min DR TANIA JAFFE MD [facility] 02-12-2022 10:15-0400 Respiratory rate 16 /min DR TANIA JAFFE MD [facility] 02-12-2022 10:15-0400 Systolic Blood Pressure NBP [address] TANIA JAFFE MD [facility] 02-12-2022 09:11-0400 Body temperature 96.44 [degF] DR TANIA JAFFE MD [facility] 02-12-2022 05:59-0400 Body height [address] TANIA JAFFE MD [facility] 02-12-2022 05:59-0400 Body temperature 97.34 [degF] DR TANIA JAFFE MD [facility] 02-12-2022 05:59-0400 Body weight 78.[address] TANIA JAFFE MD [facility] 02-12-2022 05:59-0400 Heart rate 86 /min DR TANIA JAFFE MD [facility] 01-29-2022 10:18-0400 Body height [address] TANIA JAFFE MD [facility] 01-29-2022 10:18-0400 Body weight 78.[address] TANIA JAFFE MD [facility] 01-29-2022 10:18-0400 Body weight 32.55 kg/m2 DR TANIA JAFFE MD [facility] 01-29-2022 10:18-0400 diastolic 80 mm[Hg] DR TANIA JAFFE MD [facility] 01-29-2022 10:18-0400 Heart rate 90 /min DR TANIA JAFFE MD [facility] 01-29-2022 10:18-0400 systolic 132 mm[Hg] DR TANIA JAFFE MD [facility] Encounters Encounter Date Encounter Type Care Provider Facility Start: 09-06-2023 End: 09-06-2023 Emergency department patient visit [facility] Start: 09-05-2023 End: 09-06-2023 Emergency department patient visit Russ Hurst MD Work Phone: [facility] ED Procedures Date Procedure Procedure Detail Performing Clinician Start: 09-06-2023 Comprehensive metabolic panel Russ Hurst MD Work Phone: Start: 09-05-2023 Urinalysis complete panel - Urine Russ Hurst MD Work Phone: Start: 09-05-2023 Urnls dip stick/tabl et reagent auto microscopy Russ Hurst MD Work Phone: Start: 06-16-2023 Blood count complete automated Abdon Cali DO Work Phone: Start: 06-12-2023 Basic metabolic pane l calcium total Abdon A Karely DO Work Phone: Start: 02-12-[address] TANIA JAFFE MD Start: 12-15-[address] CINTHYA EDWARD Plan of Treatment Date Care Activity Detail Author Start: 06-12-2026 Diabetes Screening Diabetes Screenin g [facility] Start: 03-28-2023 Influenza vaccination Influenza Vacc ine (#1) [facility] Start: 07-28-2022 Advance Directive Discussion Advance Directive Discussion [facility] Start: 07-28-2022 Depression Assessment Depression Ass essment [facility] Start: 01-23-2004 Bone Density Screening Bone Density Screening [facility] Start: 01-23-2004 Pneumococcal Vaccine : 65+ Years (1 of 1 - PCV) Pneumococcal Vaccine: 65+ Years (1 of 1 - PCV) [facility] Start: 1999 RSV Immunization age d 60 or older (1 - 1-dose 60+ series) RSV Immunization aged 60 or older (1 - 1-dose 60+ series) [facility] Start: 1999 RSV Vaccine (1 - 1-d ose 60+ series) RSV Vaccine (1 - 1-dose 60+ series) [facility] Start: 1989 Shingrix Vaccine (1 of 2) Shingrix V accine (1 of 2) [facility] Start: 1989 Zoster Vaccines (1 of 2) Zoster Vacc val (1 of 2) [facility] Start: 1958 DTaP/Tdap/Td Vaccine s (1 - Tdap) DTaP/Tdap/Td Vaccines (1 - Tdap) [facility] Start: 1958 Urine microalbumin profile DTaP,Tdap,Td Vaccine (1 - Tdap) [facility] Start: 1951 Depression Screening Depression Scre ening [facility] Start: 1945 Pneumococcal Vaccine : 65+ (1 - PCV) Pneumococcal Vaccine: 65+ (1 - PCV) [facility] Start: 1939 Covid-19 Vaccine (#1) Covid-19 Vacci ne (#1) [facility] Start: 1939 Lipid panel Lipid Panel [facility] Start: 1940 Medicare Advantage A nnual Wellness Visit (AWV) Medicare Advantage Annual Wellness Visit (AWV) [facility] Start: 1940 Screening for osteoporosis Bone Density Scan [facility] Payers Date Payer Category Payer Medicare [employer] RE [employer]URE [id number] 2023-Present [address] [place] [address] Medicare HMO [id number] 2023 Medicare [id number] 2021 Unknown [id number] 2000 Private Health Insurance [facility] OPTIONS PPO [id number] 2000-Present [phone] [address] [place] [address] PPO [id number] 2000 Unknown [id number] 1939 Unknown [id number] 1939 Unknown [id number] 1939 Unknown [id number] 1939 Unknown [id number] 1939 Unknown [id number] Unknown [id number] Social History Date Type Detail Facility Start: 03-13-2021 End: 09-05-2023 Tobacco smoking status Never smoked tobacco (finding) [facility] Sex Assigned At Sex [facility] Tobacco smoking stat [facility] Tobacco smoking consumption unknown [facility] Work Phone: Start: 1940 Sex Assigned At Not on file [facility] Start: 06-09-2023 End: 09-05-2023 Gender identity Not on file [facility] Work Phone: Start: 06-09-2023 End: 09-05-2023 History of Social function [facility] Work Phone: How hard is it for y ou to pay for the very basics like food, housing, medical care, and heating Not hard at all [facility] Work Phone: (I/We) worried wheth er (my/our) food would run out before (I/we) got money to buy more. Never true [facility] Work Phone: In the past 12 month s, was there a time when you were not able to pay the mortgage or rent on time? No [facility] Work Phone: Start: 09-05-2023 Tobacco use and exposure Smokeless tobacco non-user [facility] Start: 09-05-2023 Alcohol intake Lifetime non-d val (finding) [facility] How often to you hav e a drink containing alcohol? Never [facility] Functional Status Date Assessment Result Facility 02-12-2022 Functional Status Dtr will be [facility] with patient [facility] 02-12-2022 Functional Status ice on [facility] 02-12-2022 Functional Status [facility] 02-12-2022 Functional Status Maintained [facility] 01-29-2022 Functional Status Sensory Deficits None A [facility] Mental Status Date Assessment Result Facility 02-12-2022 Mental Status Orientation Asse ssment Oriented x 4 [facility] 02-12-2022 Mental Status Orientation Oriented x 4 [facility] 02-12-2022 Mental Status [facility] Clinical Notes 01-29-2022 to 09-06-2023 Discharge InstructionsAttachmentsDathea Hurst MD - 09/05/2023 11:27 PM Aranza Bowles RN - 09/05/2023 11:27 PM Aranza Bowles RN - 09/05/2023 11:27 PM EST Note Date & Type Note Facility 09-06-2023 Hospital Discharg e instructions Russ Hurst MD - 09/06/2023 1:58 AM EST Make sure you drink plenty of fluids. You can have Advil or Tylenol for pain. You were treated with Diflucan for your urinary yeast infection. You have no other urinary tract infection your blood work was normal. Not improving follow-up with your primary care physician The following attachments cannot be sent through Care Everywhere.Fatigue Discharge Instructions (Palauan)Dehydration, Adult ED (Palauan)documented in this encounter [facility] 09-05-2023 Emergency department Note EMERGENCY DEPARTMENT ENCOUNTER Pt Name: Liban Tracey Birthdate 1940 Date of evaluation: 09/05/2023 ED Provider: Russ Hurst MD CHIEF COMPLAINT Chief Complaint Patient presents with Urinary Frequency HISTORY OF PRESENT ILLNESS (Location/Symptom, Timing/Onset, Context/Setting, Quality, Duration, Modifying Factors, Severity) Note limiting factors. I wore appropriate PPE for the entirety of this encounter. HPI Liban Tracey is a 83 y.o. who presents to the emergency department with chief complaint of patient with a history of hypertension and stroke was recently admitted last month for stroke lives and is independent living area daughters take care of her complained that she had what her bed the last 2 days concerned about urinary tract infection. She has no new focal motor or sensory complaints. No abdominal pain fevers nausea vomiting diarrhea. Has been acting a little confused according to daughter. Nursing Notes were reviewed. Limitations to history: None Outside historians: Family daughters REVIEW OF SYSTEMS Review of Systems Constitutional: Negative for chills and fever. HENT: Negative for sore throat. Eyes: Negative for pain and visual disturbance. Respiratory: Negative for cough and shortness of breath. Cardiovascular: Negative for chest pain and palpitations. Gastrointestinal: Negative for abdominal pain and vomiting. Genitourinary: Positive for enuresis and frequency. Negative for difficulty urinating, dysuria, flank pain and hematuria. Musculoskeletal: Negative for arthralgias and back pain. Skin: Negative for color change and rash. Neurological: Negative for seizures, syncope and headaches. Psychiatric/Behavioral: Positive for confusion. Negative for agitation and behavioral problems. All other systems reviewed and are negative. Pertinent positives and negatives as per HPI. PAST MEDICAL HISTORY Past Medical History: Diagnosis Date Stroke (HCC) SURGICAL HISTORY History reviewed. No pertinent surgical history. CURRENT MEDICATIONS Previous Medications No medications on file ALLERGIES Patient has no known allergies. FAMILY HISTORY No family history on file. SOCIAL HISTORY Social History Tobacco Use Smoking status: Never Smokeless tobacco: Never Vaping Use Vaping Use: Never used Substance and Sexual Activity Alcohol use: Never Drug use: Never SCREENINGS PHYSICAL EXAM ED Triage Vitals [09/05/23 2330] Temp Heart Rate Resp BP 36.4 C (97.5 F) 78 14 133/62 SpO2 Temp Source Heart Rate Source Patient Position 99 % Oral Monitor Lying BP Location FiO2 (%) Right arm -- Physical Exam Vitals and nursing note reviewed. Constitutional: General: She is not in acute distress. Appearance: She is well-developed. HENT: Head: Normocephalic and atraumatic. Nose: Nose normal. Eyes: Conjunctiva/sclera: Conjunctivae normal. Cardiovascular: Rate and Rhythm: Normal rate and regular rhythm. Heart sounds: No murmur heard. Pulmonary: Effort: Pulmonary effort is normal. No respiratory distress. Breath sounds: Normal breath sounds. Abdominal: Palpations: Abdomen is soft. Tenderness: There is no abdominal tenderness. Musculoskeletal: General: No swelling. Cervical back: Normal range of motion and neck supple. Right lower leg: No edema. Left lower leg: No edema. Skin: General: Skin is warm and dry. Capillary Refill: Capillary refill takes less than 2 seconds. Neurological: Mental Status: She is alert and oriented to person, place, and time. Sensory: No sensory deficit. Comments: Patient has residual left-sided weakness also left facial droop. Has no new focal neurologic findings on exam Psychiatric: Mood and Affect: Mood normal. Behavior: Behavior normal. DIAGNOSTIC RESULTS Procedures/EKG: EKG was reviewed by myself. Physician EKG interpretation can be found in [facility] RADIOLOGY (Per Emergency Physician): Interpretation per the Radiologist below, if available at the time of this note: No orders to display ED BEDSIDE ULTRASOUND: Performed by ED Physician - none LABS: Labs Reviewed COMPREHENSIVE METABOLIC PANEL CBC WITH AUTO DIFFERENTIAL COMPLETE URINALYSIS WITH REFLEX TO CULTURE Narrative: The following orders were created for panel order Urinalysis complete with reflex to Culture. Procedure Abnormality Status --------- ------ Complete Urinalysis[[id number]] Please view results for these tests on the individual orders. COMPLETE URINALYSIS All other labs were within normal range or not returned as of this dictation. EMERGENCY DEPARTMENT COURSE and DIFFERENTIAL DIAGNOSIS/MDM: Vitals: Vitals: 09/05/23 2330 BP: 133/62 BP Location: Right arm Patient Position: Lying Pulse: 78 Resp: 14 Temp: 36.4 C (97.5 F) TempSrc: Oral SpO2: 99% Diagnoses as of 09/06/23 0649 Dehydration Yeast vaginitis Fatigue, unspecified type The patient presented with chief complaint of patient has had some enuresis and increased urinary output. She has not been drinking much. Daughter felt she might have a urinary tract infection was also concerned because she was little bit more lethargic today. The differential diagnosis associated with this patient's presentation includes possible urinary tract infection versus electrolyte abnormality versus dehydration. Our workup consisted of ordering/reviewing: CBC CMP and urinalysis. Diagnostic tests considered but not performed: Does not need a CT scan of the head she did have a recent stroke but is having no new focal neurologic symptoms I discussed their care with daughters. The patient will be Discharged. Patient is in agreement with this plan. Patient's care was impacted by recent stroke. Medications - No data to display REVAL: Reexam 00 50: Patient is resting comfortably. Her urinalysis noted no white blood cells did note some yeast we will treat with Diflucan her electrolytes CMP and CBC were normal. We will place an IV and give her 500 mL of fluid and give her some Diflucan most likely she will be able to be discharged back to her rehab facility Reexam 01 50: Patient is feeling better after 500 mL fluid. She has a little bit of a headache going to give her some ibuprofen and she will be able to be discharged. Patient family agree CRITICAL CARE TIME None CONSULTS: None PROCEDURES: Unless otherwise noted below, none Procedures Patients symptoms are consistent with sepsis, severe sepsis, or septic shock (If yes use .sepsiscoremeasure ): no FINAL IMPRESSION No diagnosis found. DISPOSITION PATIENT REFERRED TO: No follow-up provider specified. DISCHARGE MEDICATIONS: New Prescriptions No medications on file (Comment: Please note this report has been produced using speech recognition software and may contain errors related to that system including errors in grammar, punctuation, and spelling, as well as words and phrases that may be inappropriate. If there are any questions or concerns please feel free to contact the dictating provider for clarification.) Russ Hurst MD (electronically signed) Emergency Medicine Provider Russ Hurst MD 09/06/23 0649 Liban Tracey, age 83, came to ED7 by squad for a chief complaint of urinary frequency. Pt stated she has wet the bed the last two nights which is not normal for the pt. Pt's kids are worried about a UTI. Pt denies any back pain, n/v, difficulty urinating. Vitals obtained. Call light within reach. documented in this encounter [facility] 09-05-2023 Emergency department Triage note Liban Tracey, age 83, came to ED7 by squad for a chief complaint of urinary frequency. Pt stated she has wet the bed the last two nights which is not normal for the pt. Pt's kids are worried about a UTI. Pt denies any back pain, n/v, difficulty urinating. Vitals obtained. Call light within reach. [facility] 09-05-2023 Physician Emergency department Note EMERGENCY DEPARTMENT ENCOUNTER Pt Name: Liban Tracey Birthdate 1940 Date of evaluation: 09/05/2023 ED Provider: Russ Hurst MD CHIEF COMPLAINT Chief Complaint Patient presents with Urinary Frequency HISTORY OF PRESENT ILLNESS (Location/Symptom, Timing/Onset, Context/Setting, Quality, Duration, Modifying Factors, Severity) Note limiting factors. I wore appropriate PPE for the entirety of this encounter. HPI Liban Tracey is a 83 y.o. who presents to the emergency department with chief complaint of patient with a history of hypertension and stroke was recently admitted last month for stroke lives and is independent living area daughters take care of her complained that she had what her bed the last 2 days concerned about urinary tract infection. She has no new focal motor or sensory complaints. No abdominal pain fevers nausea vomiting diarrhea. Has been acting a little confused according to daughter. Nursing Notes were reviewed. Limitations to history: None Outside historians: Family daughters REVIEW OF SYSTEMS Review of Systems Constitutional: Negative for chills and fever. HENT: Negative for sore throat. Eyes: Negative for pain and visual disturbance. Respiratory: Negative for cough and shortness of breath. Cardiovascular: Negative for chest pain and palpitations. Gastrointestinal: Negative for abdominal pain and vomiting. Genitourinary: Positive for enuresis and frequency. Negative for difficulty urinating, dysuria, flank pain and hematuria. Musculoskeletal: Negative for arthralgias and back pain. Skin: Negative for color change and rash. Neurological: Negative for seizures, syncope and headaches. Psychiatric/Behavioral: Positive for confusion. Negative for agitation and behavioral problems. All other systems reviewed and are negative. Pertinent positives and negatives as per HPI. PAST MEDICAL HISTORY Past Medical History: Diagnosis Date Stroke (HCC) SURGICAL HISTORY History reviewed. No pertinent surgical history. CURRENT MEDICATIONS Previous Medications No medications on file ALLERGIES Patient has no known allergies. FAMILY HISTORY No family history on file. SOCIAL HISTORY Social History Tobacco Use Smoking status: Never Smokeless tobacco: Never Vaping Use Vaping Use: Never used Substance and Sexual Activity Alcohol use: Never Drug use: Never SCREENINGS PHYSICAL EXAM ED Triage Vitals [09/05/23 2330] Temp Heart Rate Resp BP 36.4 C (97.5 F) 78 14 133/62 SpO2 Temp Source Heart Rate Source Patient Position 99 % Oral Monitor Lying BP Location FiO2 (%) Right arm -- Physical Exam Vitals and nursing note reviewed. Constitutional: General: She is not in acute distress. Appearance: She is well-developed. HENT: Head: Normocephalic and atraumatic. Nose: Nose normal. Eyes: Conjunctiva/sclera: Conjunctivae normal. Cardiovascular: Rate and Rhythm: Normal rate and regular rhythm. Heart sounds: No murmur heard. Pulmonary: Effort: Pulmonary effort is normal. No respiratory distress. Breath sounds: Normal breath sounds. Abdominal: Palpations: Abdomen is soft. Tenderness: There is no abdominal tenderness. Musculoskeletal: General: No swelling. Cervical back: Normal range of motion and neck supple. Right lower leg: No edema. Left lower leg: No edema. Skin: General: Skin is warm and dry. Capillary Refill: Capillary refill takes less than 2 seconds. Neurological: Mental Status: She is alert and oriented to person, place, and time. Sensory: No sensory deficit. Comments: Patient has residual left-sided weakness also left facial droop. Has no new focal neurologic findings on exam Psychiatric: Mood and Affect: Mood normal. Behavior: Behavior normal. DIAGNOSTIC RESULTS Procedures/EKG: EKG was reviewed by myself. Physician EKG interpretation can be found in [facility] RADIOLOGY (Per Emergency Physician): Interpretation per the Radiologist below, if available at the time of this note: No orders to display ED BEDSIDE ULTRASOUND: Performed by ED Physician - none LABS: Labs Reviewed COMPREHENSIVE METABOLIC PANEL CBC WITH AUTO DIFFERENTIAL COMPLETE URINALYSIS WITH REFLEX TO CULTURE Narrative: The following orders were created for panel order Urinalysis complete with reflex to Culture. Procedure Abnormality Status --------- ------ Complete Urinalysis[[id number]] Please view results for these tests on the individual orders. COMPLETE URINALYSIS All other labs were within normal range or not returned as of this dictation. EMERGENCY DEPARTMENT COURSE and DIFFERENTIAL DIAGNOSIS/MDM: Vitals: Vitals: 09/05/23 2330 BP: 133/62 BP Location: Right arm Patient Position: Lying Pulse: 78 Resp: 14 Temp: 36.4 C (97.5 F) TempSrc: Oral SpO2: 99% Diagnoses as of 09/06/23 0649 Dehydration Yeast vaginitis Fatigue, unspecified type The patient presented with chief complaint of patient has had some enuresis and increased urinary output. She has not been drinking much. Daughter felt she might have a urinary tract infection was also concerned because she was little bit more lethargic today. The differential diagnosis associated with this patient's presentation includes possible urinary tract infection versus electrolyte abnormality versus dehydration. Our workup consisted of ordering/reviewing: CBC CMP and urinalysis. Diagnostic tests considered but not performed: Does not need a CT scan of the head she did have a recent stroke but is having no new focal neurologic symptoms I discussed their care with daughters. The patient will be Discharged. Patient is in agreement with this plan. Patient's care was impacted by recent stroke. Medications - No data to display REVAL: Reexam 00 50: Patient is resting comfortably. Her urinalysis noted no white blood cells did note some yeast we will treat with Diflucan her electrolytes CMP and CBC were normal. We will place an IV and give her 500 mL of fluid and give her some Diflucan most likely she will be able to be discharged back to her rehab facility Reexam 01 50: Patient is feeling better after 500 mL fluid. She has a little bit of a headache going to give her some ibuprofen and she will be able to be discharged. Patient family agree CRITICAL CARE TIME None CONSULTS: None PROCEDURES: Unless otherwise noted below, none Procedures Patients symptoms are consistent with sepsis, severe sepsis, or septic shock (If yes use .sepsiscoremeasure ): no FINAL IMPRESSION No diagnosis found. DISPOSITION PATIENT REFERRED TO: No follow-up provider specified. DISCHARGE MEDICATIONS: New Prescriptions No medications on file (Comment: Please note this report has been produced using speech recognition software and may contain errors related to that system including errors in grammar, punctuation, and spelling, as well as words and phrases that may be inappropriate. If there are any questions or concerns please feel free to contact the dictating provider for clarification.) Russ Hurst MD (electronically signed) Emergency Medicine Provider Russ Hurst MD 09/06/23 0649 [facility] 06-11-2023 Note HNO ID: [id number] Author: Abelino Dominguez RPh Service: Pharmacy Author [...] daily Additional Neuro Recs? N/A Abelino Dominguez [facility] June 11, 2023 12:33 PM Pager: [phone] 06/11/2023 12:33 PM Medication List START taking [...] ascorbic acid (vitamin C) WOMEN'S MULTIVITAMIN ORAL [facility] 06-11-2023 Note HNO ID: [id number] Author: Ynes Campos RN Service: Care Management Author Type: Registered Nurse Type: Care Mgt Progress Note Filed: 06/11/2023 12:21 PM Note Text: CARE MANAGEMENT DISCHARGE NOTE SERVICE DATE: June 11, 2023 SERVICE TIME: 12:20 PM Admission Date: 06/07/2023 LOS: 4 days Discharge Arrangement Discharge Arrangement: Acute Rehabilitation Facility Services Arranged Medical Services: Other: See Comment (n/a) Provider Name: [facility] Caregiver Assessment Caregiver is ready, willing and able to meet the patient's needs as recommended by the inter-professional team: No Caregiver needed Transportation Arrangements Transportation Arrangements: Car Handoff Communication: Handoff to: Other Caregiver Other Caregiver Name/Phone: RN to call report to nurse at facility Additional Information: Pt has auth to go to [facility]. The patient's family is planning to drive her there and leave the hospital at 1330. [facility] is aware that family will be driving her. SIGNATURE: Ynes Campos RN PATIENT NAME: Liban Tracey DATE: June 11, 2023 TIME: 12:20 PM CONTACT #: [phone] [facility] 06-11-2023 Note HNO ID: [id number] Author: Ynes Campos RN Service: Care Management Author Type: Registered Nurse Type: Care Mgt Progress Note Filed: 06/11/2023 10:57 AM Note Text: CARE MANAGEMENT PROGRESS NOTE SERVICE DATE: 06/11/2023 SERVICE TIME: 10:56 AM LOS: 4 days Needs Prior to Discharge: Ready for Discharge IMM Follow Up Copy Given: No Reason: Acute Rehab The patient has auth to go to [facility] for [place]. Her bed will be available at 1330 today. Her family plans to drive her there when ready for discharge. Will notify the attending. SIGNATURE: Ynes Campos RN PATIENT NAME: Liban Tracey DATE: June 11, 2023 TIME: 10:56 AM PAGER/CONTACT #: [phone] [facility] 06-10-2023 Note HNO ID: [id number] Author: Alxeandria Hatfield RN Service: ? Author Type: Registered Nurse Type: Nursing Progress Note Filed: 06/10/2023 1:09 PM Note Text: Gag reflex checked and has returned. Patient okay to start oral intake per order. [facility] 06-10-2023 Note HNO ID: [id number] Author: Kim Sinclair MD Service: Hospital Medicine [...] Date: 06/07/2023 Images were obtained outside of [facility] OT-Brain/Head without Contrast IMPORT Result Date: 06/07/2023 Images were obtained outside of [facility] CT-CTA Head AND Neck W/ Contrast IMPORT Result Date: 06/07/2023 Images were obtained outside of [facility] Most recent EKG NSR Blood and Urine [...] complicated by severe mitral stenosis. Presented to [facility] ED with GOLDMAN, ataxia, and presyncope on 06/05. MRI brain showed left cerebellar infarct. Teleneurology recommended tertiary center with neurosurgery capability. Patient was monitored on NSICU. Remained stable. Transferred to [facility] 06/08/2023. # Acute left cerebellar stroke [...] - MRI brain done at [facility]SH - [facility] 06/09. Regular diet. - PT/OT > acute [...] Liban Tracey DATE: 06/10/2023 TIME: 1:01 PM [facility] 06-10-2023 Note HNO ID: [id number] Author: Ynes Campos RN Service: Care Management Author Type: Registered Nurse Type: Care Mgt Progress Note Filed: 06/10/2023 3:56 PM Note Text: CARE MANAGEMENT PROGRESS NOTE SERVICE DATE: 06/10/2023 SERVICE TIME: 12:00 PM LOS: 3 days Needs Prior to Discharge: OT/PT Evaluation;Insurance Authorization;Bed Availability;Accepting Facility;Facility or Agency Choices;Discharge Transportation Mary Alice of Choice Given: Yes Level of Care [...] agreeable and her first choice facility is [facility]. Referral was sent. If they can accept, we will start precert today once OT note is in. She wants her family to transport her to [place] if possible. Addendum: [facility] is able to accept. Precert was started. SIGNATURE: Ynes Campos RN PATIENT NAME: Liban Tracey DATE: June 10, 2023 TIME: 11:59 AM PAGER/CONTACT #: [phone] [facility] 06-10-2023 Note HNO ID: [id number] Author: Lei Jules MD Service: Cardiovascular Medicine Author Type: Physician Type: Plan of Care Filed: 06/10/2023 10:03 AM Note Text: DNR status to be reversed to full code for the JUDE as discussed and agreed by the patient, DNR status will be re-instated after JUDE. Lei Jules MD, [facility] Cardiovascular Probate LawyerTenant Relations Coordinatorbuttonhole maker hand [facility] Pager: [phone] [facility] 06-09-2023 Note HNO ID: [id number] Author: Kim Sincliar MD Service: Hospital Medicine Author Type: Physician [...] 233 MCV 92.9 92.9 CHEM: Recent Labs 06/09/23 0454 06/08/23 0356 NA 141 142 K 4.1 3.6* [...] Date: 06/07/2023 Images were obtained outside of [facility] OT-Brain/Head without Contrast IMPORT Result Date: 06/07/2023 Images were obtained outside of [facility] CT-CTA Head AND Neck W/ Contrast IMPORT Result Date: 06/07/2023 Images were obtained outside of [facility] Most recent EKG NSR Blood and Urine [...] complicated by severe mitral stenosis. Presented to [facility] ED with GOLDMAN, ataxia, and presyncope on 06/05. MRI brain showed left cerebellar infarct. Teleneurology recommended tertiary center with neurosurgery capability. Patient was monitored on NSICU. Remained stable. Transferred to [facility] 06/08/2023. # Acute left cerebellar stroke [...] - MRI brain done at OSH - [facility] 06/09. Regular diet. - PT/OT [...] Liban Tracey DATE: 06/09/2023 TIME: 1:18 PM [facility] documented as of this encounter (statuses as of 06/20/2023) [facility]11-12-2023 NoteHNO ID: [id number] Author: Nilsa Prater [facility] Service: Pharmacy Author Type: Pharmacist Type: Plan of Care Filed: 06/10/2023 9:38 AM Note Text: PHARMACY MEDICATION REVIEW Patient Name: Liban Tracey : 1940 The following medications were updated within the COMMUNITY SERVICE PATROL OFFICER medication list: Medications ADDED to COMMUNITY SERVICE PATROL OFFICER medication list ascorbic acid, vitamin C, (VITAMIN C) 500 mg tablet Patient Yes Yes aspirin, enteric coated (ASPIRIN, ENTERIC COATED) 81 mg EC tablet Patient Yes Yes mv-min/iron/folic/calcium/vitK (WOMEN'S MULTIVITAMIN ORAL) Patient Yes Yes triamcinolone acetonide (KENALOG) 0.1 % ointment OTHER, Patient Yes Yes OTC medications and Kenalog RX as needed. (Poison Jen exposure per pt) Medications CHANGED on COMMUNITY SERVICE PATROL OFFICER medication list Medications REMOVED from COMMUNITY SERVICE PATROL OFFICER medication list Additional comments: I was able to talk with pt. and she verified the 4 medications on the COMMUNITY SERVICE PATROL OFFICER list. I have added these 4 medications to the COMMUNITY SERVICE PATROL OFFICER list and have not removed or changed any medications. Pt states she uses [email or web address] pharmacy for her home medications. Required follow up actions for nursing: Medication history completed by Historian. No nursing follow up required. The below information represents the best possible medication history: Yes Medication history completed by: [employer] Facilities Operator: Brendan Sánchez (Authentic Response) Source of history: Patient: Reliability of source: Appears reliable, clearly identified: Medication name, Medication dose, Medication route, and Medication frequency and Pharmacy records: [facility] Medication nonadherence identified: No barriers noted Reconciliation completed: Yes Completed by: Nilsa Prater PharmD, [facility] Nursing Unit Based Pharmacist Ext: [phone] All COMMUNITY SERVICE PATROL OFFICER medications addressed by LIP Patient interested in Bedside Delivery Services or using OP Pharmacy at discharge? Unable to assess Preferred outpatient pharmacy: [facility] [place] [address] [phone] [facility] [address] - [phone] Allergies: No Known Allergies Prior to Admission [...] AND USE TWICE DAILY in THE future [facility] Facility-Administered Medications: None Brendan Sánchez (Authentic Response) phone [phone] 06/08/2023 I have reviewed and agree with the medication history note completed by the medication historian as documented above. All medications reviewed and reconciled appropriately. Nilsa Ortiz, Teagan, [facility] Nursing Unit Based Pharmacist Ext: [phone] NoteHNO ID: [id number] Author: Daniella Strickland APRN.DRIVER SERVICE TECHNICIAN Service: Neurology ICU Author Type: Nurse Practitioner Type: Progress Notes Filed: 06/08/2023 6:24 AM Note Text: Patient arrived from [facility]. Exam stable. Still with left sided dysmetria. GOLDMAN and nausea controlled. She is on RA and protecting airway. We will hold Chemo VTE ppx until need for decompression ruled out. Full note to follow. Stroke Care path started.[facility]2023 NoteHNO ID: [id number] Author: Yoana Crawford MD Service: ? Author Type: Fellow Type: Progress Notes Filed: 06/07/2023 7:03 PM Note Text: Stroke Neurology Plan of Care Paged by regarding transfer request for pt currently residing at [facility]. Spoke to Dr. Meeks for the following information. 83F who presented yesterday for 1 day of feeling off balance and falling to the left with n/v. LKW 06/05. [facility] NAP. MRI and CTA showed acute [...] at facility with endovascular capability. [facility] is closest for this. Advised transfer to [facility]. Supervising attending: Dr. Riley. Yoana Crawford MD Vascular Neurology Fellow PGY-5 June 07, 2023 6:57 [facility]11-11-2023 History of Present illness Narrative* Yoana Crawford MD - 06/07/2023 6:51 PM EST Stroke Neurology Plan of Care Paged by HT regarding transfer request for pt currently residing at [facility].Spoke to Dr. Meeks for the following information. 83F who presented yesterday for 1 day of feeling off balance and falling to the left with n/v. LKW 06/05. [facility] NAP. MRI and CTA showed acute L [...] at facility with endovascular capability. [facility] is closest for this. Advised transfer to [facility]. Supervising attending: Dr. Riley. Yoana Crawford MD Vascular Neurology Fellow PGY-5 June 07, 2023 6:57 PM [facility] Discharge instructions Patient Education 02/12/2022 12:59:41 [...] including vitamins, herbs, eye drops, creams, and oigx-rbe-ppalenr medicines. Any problems you or family members [...] 10/03/2004 Document Revised: 01/03/2020 Document Reviewed: 11/04/2016 [employer] Patient Education 2020 URBANARA. 02/12/2022 12:57:46 Total Knee Replacement, Care After [...] Follow these instructions at home: Medicines Take jppz-rnm-huglcfs and prescription medicines only as told by [...] to keep your urine pale yellow. ?Take vtks-dwc-enmbcjh or prescription medicines. ?Eat foods that are [...] and water are not available, use hand video game designer. ?Change your dressing as told by your [...] 01/31/2006 Document Revised: 11/22/2019 Document Reviewed: 02/25/2019 [employer] Patient Education 2020 URBANARA. Follow Up Care 01/15/2022 07:38:49 With:DISHA GLOVER PA-C, Orthopedic Address: [facility] [address] [place] [address]- When:02/28/2022 [facility] 07-19-2022 Summary of episode note Discharge Instructions Thank you for allowing [facility] to assist you with your healthcare needs. The following is importantdischarge information regarding your hospital visit. Your Care Team MITUL RUTHERFORD MD What to do next Scheduled Follow-Up Appointments Appointment Type When Where Contact InformationCV Procedure - AOH Echo 06/27/2022 09:00 AM [facility] Radiology CV OV 08/01/2022 10:00 AM [facility] Heart & Vascular [facility] CVC Piru Follow Up Appointments Follow Up with DISHA GLOVER PA-C, Orthopedic When 02/28/2022 03:15 AM EDT Where: [facility] [address] [place] [address]- The Following Activity and Diet Have Been [...] The extended-release form of oxycodone is for iqtzvi-anz-xnlhn treatment of pain and should not be [...] against the law. Stop taking all other ksegjw-bnu-viafj opioid pain medicines when you start taking [...] may report side effects to FDA at 2-337-EKI-9396. What other drugs will affect oxycodone? You [...] drugs may affect oxycodone. This includes prescription emoxfyk-uwc-vttoash medicines, vitamins, and herbal products. Not all [...] to ensure that the information provided by [employer] ('[employer]') is accurate, up-to-date, and complete, but no guarantee is made to that effect. Drug information contained herein may be time sensitive. General [facility] information has been compiled for use by healthcare practitioners and consumers in the [place] and therefore [facility] does not warrant that uses outside of the [place] are appropriate, unless specifically indicated otherwise. General Blood's drug information does not endorse drugs, diagnose patients or recommend therapy. [facility] drug information isan informational resource designed to [...] effective or appropriate for any given patient. [facility] does not assume any responsibility for any aspect of healthcare administered with the aid of information [facility] provides. The information contained herein is not intended to cover all possible uses, directions, precautions, warnings, drug interactions, allergic reactions, or adverse effects. If you have questions about the drugs you are taking, check with your doctor, nurse or pharmacist. Copyright 0649-4556 [facility] Personal[employer]. Version: 14.02. Revision Date: 08/24/2020. Education Materials [...] including vitamins, herbs, eye drops, creams, and fblm-fjq-jfgncwj medicines. Any problems you or family members [...] 10/03/2004 Document Revised: 01/03/2020 Document Reviewed: 11/04/2016 [employer] Patient Education 2020 URBANARA. Total Knee Replacement, Care After This sheet [...] Follow these instructions at home: Medicines Take kvyf-ekp-bfqttok and prescription medicines only as told by [...] keep your urine pale yellow. ? Take lmrl-hao-znxsihm or prescription medicines. ? Eat foods that [...] and water are not available, use hand video game designer. ? Change your dressing as told by [...] 01/31/2006 Document Revised: 11/22/2019 Document Reviewed: 02/25/2019 Elsevier Patient Education 2020 [employer]. Additional Information VACCINATE! IT SAVES LIVES! Members of the community who have not yet received the COVID-19 vaccine and would like to receive it can visit one of [facility] vaccine clinics. There are many vaccine clinic locations within the [facility]. For locations and available times, please visit [email or web address]/. It is important to note that some COVID mobile vaccine clinics are held outdoors and may be canceled in rainy or stormy conditions. To learn more about pediatric vaccinations (ages 5-11), we invite you to visit the [facility] webpage. https://[email or web address]/[email or web address]-Rnfwutjqct-[email or web address]-Zfj stions.htmlTo learn more about the COVID-19 vaccine, we invite you to visit the [employer] website for a list of frequently asked questions. [email or web address]-sed-Dejxefhl/ihmwt-Kxwepvn-Aknmcldfzr _Asked-Questions.pdf [facility] Patient Portal Access Instructions: Stay connected with your healthcare team and access your personal medical information anytime with the [facility] Patient Portal.If you would like a full copy of your medical records, please contact the [facility] Medical Records Department, Friday through Friday between 8a.m. and 4:30p.m. Please follow the directions below to access the portal: 1.Access the email account you provided upon registration to the hospital.2.Look for an invitation email from [facility].3.Open the email and access the invitation link: Accept Invitation to [facility]4.Fill in the required tristan to create your account. Sign into www.[employer] with your username and password that you [...] you will allow to register on the [employer] Patient Portal for access to your information. You can also access the [employer] Patient Portal on the [employer]. Simply click on Health Records under Datto and then click on the [employer] logo. HOW TO SAFELY DISPOSE OF PRESCRIPTION [...] Call your local pharmacy or go to [email or web address] to find one close to you.3.Make use of household items: Use cat litter or old coffee grounds to dispose medications if other options arenot available. Mix your drugs with these household products, seal them in an airtight container andthrow it into the garbage. Call [facility]: [phone] to be sure your drugs can be [...] been reviewed and explained to me and ALEXY Short JANET M understand my current condition and have read and understand these discharge instructions. I have received a written copy of the plan/instructions. If I have questions, I am aware that I should contact my doctor. Patient/Signal Timer Signature: Date/Time: Relationship to Patient: Witness Name/Signature: Date/Time: [facility]07-19-2022 Anesthesiology Consult note Patient: LIBAN TRACEY [...] by HARRIET STEPHENSON on 02/12/2022 11:01 AM [facility]07-19-2022 Note ORIGINAL EXAMINATION: KNEE 2 radiographic [...] Sign Date: 02/12/2022 10:06:48 AM Ordering Provider: TANIA JAFFE [facility]07-19-2022 Note ORIGINAL EXAMINATION: KNEE 2 radiographic [...] Sign Date: 02/12/2022 10:06:48 AM Ordering Provider: TANIA [facility]07-19-2022 Anesthesiology Consult note Patient: LIBAN TRACEY Age: 82 years Sex: Female : 1940 Associated Diagnoses: None Author: HARRIET STEPHENSON APRN-MANAGER COMMODITIES Preoperative Information Anesthesia history Patient's history: negative. [...] Medical Basal cell carcinoma / SNOMED CT 6763428 / Confirmed CVA (cerebrovascular accident) / SNOMED CT 141836316 / Confirmed H/O: CVA / SNOMED CT 302739084 / Confirmed Mitral valve stenosis / SNOMED CT 859046509 / Confirmed, Active Problems (5) Arthritis Basal cell carcinoma CVA (cerebrovascular accident) H/O: CVA Mitral valve stenosis Histories Past Medical History: No active or resolved past medical history items have been selected or recorded. Family History: Stroke Mother Sister Procedure history: Echocardiogram ([id number]) on 12/15/2020 at 80 Years. Comments: 03/13/2021 9:47 Eden Berumen MA ([facility] IMPRESSION : The estimated EF is 60%. severe mitral valve stenosis. Unable to assess diastolic dysfunction. The left atrium is mildly enlarged. Arthroscopy of knee joint ([id number]). Comments: 01/29/2022 10:08 Isabel Jewell RN bilateral Carpal tunnel release ([id number]). Comments: 01/29/2022 10:08 Isabel Jewell RN right Tonsillectomy ([id number]). Social History Social & Psychosocial Habits Alcohol [...] Resp Rate 15 br/min (FEB 12 05:59) ONR299 mmHg (FEB 12 05:59) DBP68 mmHg (FEB 12 05:59) Measurements from flowsheet : Measurements 02/12/2022 5:59 EDT Height 155 cm Height in inches 61 inch(es) Admission Weight 78.2 kg Weight Lbs 172 lb Burna Body Weight 47.85 kg Admission Body Mass [...] Surgeon SN - CAt - Role Performed MANAGER COMMODITIES SN - CAt - Role Performed Rerolling Machine Operator 1 SN - CAt - Role Performed Surveillance Technician 1 SN - CAt - Role Performed Scrub 1 SN - CAt - Role Performed Physician Decorator Hand SN - CAt - Role Performed X-Ray Tech SN - CAt - Role Performed Laborer Petroleum Refinery 02/12/2022 6:45 EDT famotidine 20 mg mg Lactated Ringers Injection 1,000 mL mL 02/12/2022 6:28 EDT citric acid-sodium citrate Not Done: Other (Not Done) 02/12/2022 5:59 EDT Height 155 cm Height in inches 61 inch(es) Admission Weight 78.2 kg Weight Lbs 172 lb Burna Body Weight 47.85 kg Admission Body Mass Index 32.55 m2 Temperature Temporal Artery 36.3 DegC Apical Heart Rate 86 bpm Respiratory Rate 15 br/min Systolic Blood Pressure NBP 139 mmHg Diastolic Blood Pressure NBP 68 mmHg Primary Pain Intensity 0 Pain Scale Type 0-10 Pain scale Monitor Alarms On and Limits Checked Nail Bed Color [place] Capillary Refill < 2 seconds Heart Rhythm Regular All Lobes Breath Sounds Clear Oxygen Therapy Room air Oxygen Saturation 98 % Abdomen Description Non-distended Abdomen Palpation Non-Tender Bowel Sounds All Quadrants Present Urinary Elimination Voiding, no difficulties Skin Temperature Warm Skin Description Normal for ethnicity Skin Integrity Intact Mucous Membrane Color [place] IV Present Present Extremity Movement Equal Characteristics [...] Pants, Shoes, Socks, Sweatshirt, Undergarments, Walker, Other: polar care Activity Status ADL Awake, Resting Assistive Device [...] no symptoms Safety Brochure Information Reviewed Yes Orlando Pradip Video Viewed No Teaching Evaluation Verbalizes/Nonverbally indicates understanding Admission Note-Nursing Same Day Patient History (Modified) . Assessment and Plan [place] [employer] Anesthesi[employer] (ASA) physical status classification: Class III. Anesthetic Preoperative Plan Anesthetic technique: Spinal. Regional: Spinal. Postoperative pain management: adductor canal block. Risks discussed: nausea, vomiting, headache, hypotension, allergic reaction, serious complications. Informed consent: signed by patient. Digitally Signed by HARRIET STEPHENSON on 02/12/2022 06:48 AM [facility]07-05-2022 Note ORIGINAL EXAMINATION: CT OF THE [...] Date: 01/29/2022 12:26:30 PM Ordering Provider: TANIA JAFFE [facility]07-05-2022 Note ORIGINAL EXAMINATION: CT OF THE [...] Date: 01/29/2022 12:26:30 PM [facility]ing [facility] Future Appointments Appointment Date:02/14/2022 08:45:00 AM Scheduled Provider: Location:[facility] Appointment Type:CV OV Appointment Date:06/27/2022 09:00:00 AM Scheduled Provider: Location:[facility] Appointment Type:CV Procedure - AOH Echo Appointment Date:08/01/2022 10:00:00 AM Scheduled Provider: Location:[facility] Appointment Type:CV OV [facility] Evaluation + Plan note Future Appointments Appointment Date:06/27/2022 09:00:00 AM Scheduled Provider: Location:[facility] Appointment Type:CV Procedure - AOH Echo Appointment Date:08/01/2022 10:00:00 AM Scheduled Provider: Location:[facility] Appointment Type:CV OV [facility] Evaluation note* Diagnosis Cerebellar stroke (HCC)- [facility] Diagnosis Dehydration- Primary Dehydration Yeast vaginitis Fatigue, unspecified type Yeast vaginitis Fatigue Other malaise and fatigue [facility] Narrative No data available for this section [facility] Hospital Discharge instructions No data available for this section [facility] Progress note No data available for this section [facility] Kristina Summary Purpose Family History No Family History [...] Order Discussed With: Discussion Not Medically Appropriate Healthcare Agents on File Name Relationship Healthcare Agent Relationshi p Communication Hong Carrillo Health Care Agent Additional Source Comments Care Team (unrecognized sect ion and content) Care Team Personnel Name: MITUL RUTHERFORD MD Member Role: Primary Care Physician Address: Address: [address] Care Team Related Persons Name: ZORA HEBERT Care Team Personnel Name: MITUL RUTHERFORD MD Member Role: Primary Care Physician Address: Address: [address] Care Team Related Persons Name: ZORA HEBERT Care Team Personnel Name: MITUL RUTHERFORD MD Member Role: Primary Care Physician Address: Address: [address] Care Team Related Persons Name: ZORA HEBERT INFORMATION SOURCE (unrecogn ized section and content) DATE CREATED AUTHOR AUTHOR'S ORGANIZ ATION 06/12/2023 [facility] DATE CREATED AUTHOR AUTHOR'S ORGANIZ ATION 06/21/2023 [facility] DATE CREATED AUTHOR AUTHOR'S ORGANIZ ATION 09/08/2023 [facility] Source Comments (unrecognize d section and content) In the event this informatio n is protected by the Federal Confidentiality of Alcohol and Drug Abuse Patient Records regulations: The Federal rules restrict any use of the information to criminally investigate or prosecute any alcohol or drug abuse patient.[facility] the event this information is protected by the Federal Confidentiality of Alcohol and Drug Abuse Patient Records regulations: The Federal rules restrict any use of the information to criminally investigate or prosecute any alcohol or drug abuse patient.[facility] Reason for Visit (unrecogniz ed section and content) Referral ID Status Reason Start Date Expiration Date V isits Requested Visits Authorized [id number] New Request 06/13/2023 08/12/2023 Reason Comments Urinary Frequency Scheduled Active and Recently Administ ered Medications (unrecognized section and content) Care Teams (unrecognized sec tion and content) FOR RECORDS PERTAINING TO PATIENTS WHO ARE [...] BE BASED ON THE PRIMARY CLINICAL RECORDS. [employer] provides no warranty or guarantee of the accuracy or completeness of information in this document.
== END | disposition home or self-care (01) ==
LOC: MTRAD 12:35
PROVIDERS: PCP Family Medicine; Referring Provider Family Medicine; Visit Provider Family Medicine
DX: S60.212A Contusion of left wrist, initial encounter (principal); S60.222A Contusion of left hand, initial encounter; X58.XXXA Exposure to other specified factors, initial encounter
CPT/HCPCS: 73110; 73130

== ENCOUNTER → 2023-12-16 | Outpatient (CLI) | payer MEDICARE, SELFPAY ==
--- NOTE | 2023-12-16 14:54 | CT_ITS ---
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 This CT exam was performed using one or more of the following dose reduction techniques: automated exposure control, adjustment of the mA and/or kV according to patient size, and/or use of iterative reconstruction technique. MIP reconstructed images were created and reviewed. CONTRAST: IV 100mL [id number] COMPARISON: No relevant prior studies available. FINDINGS: HEAD: RIGHT ANTERIOR CEREBRAL ARTERY: Unremarkable. No occlusion or significant stenosis. Anterior communicating artery is present. No aneurysm. RIGHT MIDDLE CEREBRAL ARTERY: Unremarkable. No occlusion or significant stenosis. No aneurysm. RIGHT POSTERIOR CEREBRAL ARTERY: Unremarkable. No occlusion or significant stenosis. No aneurysm. RIGHT INTRACRANIAL INTERNAL CAROTID ARTERY: Unremarkable. No significant stenosis. No dissection or occlusion. RIGHT INTRACRANIAL VERTEBRAL ARTERY: Unremarkable. No significant stenosis. No dissection or occlusion. LEFT ANTERIOR CEREBRAL ARTERY: Unremarkable. No occlusion or significant stenosis. No aneurysm. LEFT MIDDLE CEREBRAL ARTERY: Unremarkable. No occlusion or significant stenosis. No aneurysm. LEFT POSTERIOR CEREBRAL ARTERY: Unremarkable. No occlusion or significant stenosis. No aneurysm. LEFT INTRACRANIAL INTERNAL CAROTID ARTERY: Unremarkable. No significant stenosis. No dissection or occlusion. LEFT INTRACRANIAL VERTEBRAL ARTERY: Unremarkable. No significant stenosis. No dissection or occlusion. BASILAR ARTERY: Unremarkable. No occlusion or significant stenosis. No aneurysm. OTHER VASCULATURE: See below. NECK: RIGHT COMMON CAROTID ARTERY: Unremarkable. No significant stenosis. No dissection or occlusion. RIGHT EXTRACRANIAL INTERNAL CAROTID ARTERY: Unremarkable. No significant stenosis. No dissection or occlusion. RIGHT EXTERNAL CAROTID ARTERY: Unremarkable. No occlusion. RIGHT EXTRACRANIAL VERTEBRAL ARTERY: Unremarkable. No significant stenosis. No dissection or occlusion. LEFT COMMON CAROTID ARTERY: Unremarkable. No significant stenosis. No dissection or occlusion. LEFT EXTRACRANIAL INTERNAL CAROTID ARTERY: Unremarkable. No significant stenosis. No dissection or occlusion. LEFT EXTERNAL CAROTID ARTERY: Unremarkable. No occlusion. LEFT EXTRACRANIAL VERTEBRAL ARTERY: Left vertebral artery is widely patent with no evidence of thrombus. BRACHIOCEPHALIC AND SUBCLAVIAN ARTERIES: Unremarkable as visualized. No occlusion or significant stenosis. LUNG APICES: Unremarkable as visualized. HEAD and NECK: BONES/JOINTS: Unremarkable. No discrete lytic or blastic abnormalities. SOFT TISSUES: Unremarkable. CAROTID STENOSIS REFERENCE USING NASCET CRITERIA: % ICA stenosis = (1 - narrowest ICA diameter/diameter of distal cervical ICA) x 100. Mild - <50% stenosis. Moderate - 50-69% stenosis. Severe - 70-94% stenosis. Near occlusion - 95-99% stenosis. Occluded - 100% stenosis. CT/CTA Head AND Neck W/ Contrast IMPRESSION: No acute findings in the arteries of the head and neck. Electronically Signed: Fidel Bella MD at 0:00 EDT ,
[2023-12-16 15:27] LABS: CREATININE FINGERSTICK < 1.0 mg/dL (0.55-1.02); EGFR FINGERSTICK > 60.0000 mL/min (>60)
== END | disposition home or self-care (01) ==
LOC: CT 14:52
PROVIDERS: PCP Family Medicine; Referring Provider Psychiatry & Neurology Neurology; Visit Provider Psychiatry & Neurology Neurology
DX: Z01.812 Encounter for preprocedural laboratory examination (principal)
CPT/HCPCS: 70496; 70498; Q9967

== ENCOUNTER 2024-01-27 08:14 | Inpatient (IN) | payer MEDICARE, SELFPAY ==
[2024-01-27] VITALS (7 sets, daily range): BP systolic 118–158; BP diastolic 53–99; PULSE 77–91; RESP 18–20; TEMP 36.1–36.8; O2SAT 96–99; BMI 28.3; BMI 27.1
--- NOTE | 2024-01-27 08:50 | CT_ITS ---
STUDY: CT BRAIN WITHOUT CONTRAST REASON FOR EXAM: Female, 84 years old. fall, lac to head, on blood thinners RADIATION DOSAGE (If Supplied By Facility): CTDIvol = ( 44.99 ) mGy, DLP = ( 728.62 ) mGycm TECHNIQUE: Transaxial CT imaging of the brain was performed without administration of intravenous contrast material. Individualized dose optimization techniques were used for this CT. COMPARISON: Head CT dated August 14, 2023 FINDINGS: Normal soft tissue structures. Normal calvarium. No visualized skull fracture or subdural hemorrhage. There is mild cerebral atrophy with widening of the extra-axial spaces and ventricular dilatation. There are areas of decreased attenuation within the white matter tracts of the supratentorial brain, consistent with microvascular disease changes. Normal brainstem. Normal cerebellum. Parenchymal loss and hypodensity in the right lateral aspect of the right frontal lobe and basal ganglia redemonstrated, consistent with sequela of an old infarct. There is no intracranial hemorrhage. There are no findings of an acute ischemic infarction. Normal visualized paranasal sinuses. CT/Brain/Head without Contrast IMPRESSION: 1. Chronic involutional changes of the brain. Electronically Signed: Glenroy Wong MD at 9:43 EDT ,
--- NOTE | 2024-01-27 08:50 | CT_ITS ---
STUDY: CT CERVICAL SPINE WITHOUT CONTRAST REASON FOR EXAM: Female, 84 years old. trauma fall, lac to head, on blood thinners, hx CVA RADIATION DOSAGE (If Supplied By Facility): CTDIvol = ( 12.47 ) mGy, DLP = ( 223.39 ) mGycm TECHNIQUE: High resolution transaxial imaging was performed without contrast material. Sagittal and coronal images were reconstructed. Individualized dose optimization techniques were used for this CT. COMPARISON: None FINDINGS: Normal craniovertebral junction. Normal anterior atlantoaxial articulation. Normal odontoid process. There is straightening of the normal cervical lordosis. No visualized acute fracture or compression deformity or displaced bony fragment. Multilevel degenerative changes are present. No demonstrated jumped facets. No significant central canal stenosis is present. Normal visualized soft tissue structures. CT/Spine Cervical without Contras IMPRESSION: 1. Multilevel degenerative changes, as described above. Electronically Signed: Glenroy Wong MD at 9:48 EDT ,
--- NOTE | 2024-01-27 08:52 | EX.ED.GENINJ ---
HPI History of Present Illness Chief Complaint: Fall Informant: patient Narrative Narrative: Patient is an 84-year-old female on chronic Coumadin therapy presenting for evaluation after fall with head injury. Patient was in the bathroom with her walker when she states her walker went down on her causing her to fall. Her daughter states she hit her head on the tub. No reported loss of consciousness. Family straightened out on the floor the patient and attempted to get her self up. 911 was called she is transferred to the emergency room. She denies any associated loss of consciousness or blurry vision. Some mild pain at laceration site on her scalp but no other complaints at this time. Patient states her Coumadin level is 2.2 last week. She is not sure her last tetanus shot was but declines update at this time. No other complaints or concerns reported at this time. States she felt fine was in her normal state of health before the fall today. Tetanus Immunization: Unknown [facility] Medical History Conjunctivitis, right eye History of TIA (transient ischemic attack) (12/05/20) Secondary pulmonary arterial hypertension CVA (cerebral vascular accident) Osteoarthritis History of basal cell carcinoma History of rheumatic fever Home Medications ?Medication ?Instructions ?Recorded ?Last Taken ?Type multivitamin (Multiple Vitamins 1 tab PO DAILY SUPPLEMENT 08/14/23 08/13/23 History tablet) rosuvastatin 10 mg tablet 10 mg PO DAILY #30 tabs 11/26/23 Unknown Rx warfarin 5 mg tablet 5 mg PO DAILY 01/27/24 Unknown History Allergy/AdvReac Type Severity Reaction Status Date / Time No Known Allergies Allergy Verified 11/25/23 09:56 Surgical History H/O arthroscopic knee surgery History of carpal tunnel release Social History household members: none housing: house Smoking Status: Never smoker alcohol intake: never substance use type: does not use ROS ROS ED Constitutional Constitutional ED: Denies chills or fever(s) Eyes Eyes: Denies blurry vision Gastrointestinal Gastrointestinal: Denies nausea or vomiting Musculoskeletal Musculoskeletal: Denies arthralgias, back pain, myalgias or neck pain Integumentary Reports other Details: Left-sided scalp laceration Neurologic Neurologic: Reports headache(s); Denies paresthesias or weakness Hematologic/Lymphatic Hematologic/Lymphatic: Reports easy bleeding and easy bruising EXAM Physical Exam Const Vital Signs: 01/27/24 08:15 01/27/24 08:24 01/27/24 10:14 Temperature 97.1 F L Temperature Source Temporal Pulse Rate 80 88 Respiratory Rate 18 18 Respiratory Effort Normal Blood Pressure 151/71 H 158/69 H Blood Pressure Mean 97 98 Pulse Ox 98 98 Oxygen Delivery Method Room Air Room Air Room Air 01/27/24 11:35 Temperature 97.7 F L Temperature Source Pulse Rate 78 Respiratory Rate 18 Respiratory Effort Blood Pressure 158/65 H Blood Pressure Mean 96 Pulse Ox 98 Oxygen Delivery Method Positive well nourished and well developed General Appearance ED: well developed and NAD HEENT Reports TM's clear HEENT Narrative: No cephalhematoma appreciated. On left parietal scalp there appears to be a 3 cm full-thickness laceration with well-approximated wound edges. No active bleeding at this time. trauma Nose: Negative for septum abnormal Tympanic Membrane ED: Yes TM's clear Eyes PERRL and EOMs intact bilaterally Neck full ROM General: Negative for tenderness Chest Wall inspection of chest normal and palpation of chest normal Resp normal respiratory effort and clear to auscultation bilaterally Cardio regular rhythm Rate: regular rate GI normal to inspection, nondistended, normoactive bowel sounds and non-tender Back/Spine normal to inspection and no thoracic nor lumbar tenderness Extremity normal to inspection and full ROM Extremity Narrative: Pelvis is stable. No rotational deformity of the lower extremities. Normal range of motion of all extremities with no pain with range of motion. General Extremety ED: Negative for deformity or tenderness General Extremity: Negative for deformity Neuro oriented x3, CN's II-XII intact bilaterally and moves all extremities Neuro Narrative: Chronic deficits of the left upper extremity with decreased range of motion and significant loss of strength from prior stroke. Mild weakness of the left lower extremity when compared to the right but able to hold the leg off the bed. Psych mental status grossly normal and thought process normal Skin Skin Narrative: 3 cm full-thickness laceration of the left parietal scalp MDM MDM MDM Narrative Medical decision making narrative: Patient evaluated for closed head injury and scalp laceration. Intracranial hemorrhage, skull fracture and neck fracture on the differential. CT of the brain and cervical spine obtained which did not show any acute traumatic process. Dermabond used to close 3 cm full-thickness scalp laceration using her apposition technique. Patient tolerated the procedure well. Tolerated p.o. in the ER. Will be ambulated with walker and does well will be discharged home. Patient took a dose of her home Tylenol while in the emergency room after her CT results. Family feels comfortable taking her home and patient would like to go home. Given that she does not have an intracranial hemorrhage I do not think we need to check INR level as it was checked last week and was low normal. I did offer an INR check but patient declined. She will follow-up with her primary care doctor for this. Attempted to ambulate patient. She was dizzy and unstable. Will check some baseline labs, give her some breakfast and reevaluate after that. Pressure dressing is applied to her scalp. She does have a developing hematoma. Lab work shows a significantly supratherapeutic INR of 14. Blood work otherwise stable. Decision is made to observe the patient in the hospital overnight and give her vitamin K for reversal of her supratherapeutic INR. Family counseled that we do not have neurosurgery here so she did develop intracranial hemorrhage she would require transfer. They understand this and happy for her to stay at [place] for now. Case discussed admitting physician, Dr. Phelps. Lab Data Labs: Laboratory Results - last 24 hr 01/27/24 10:20 WBC 11.4 H RBC 4.25 Hgb 12.7 Hct 39.5 MCV 92.9 MCH 29.9 MCHC 32.2 RDW Std Deviation 45.9 H RDW Coeff of Alfredo 13.5 Plt Count 249 MPV 10.1 Immature Gran % (Auto) 0.400 Neut % (Auto) 80.3 H Lymph % (Auto) 13.5 L Metcalfe % (Auto) 4.6 Eos % (Auto) 0.7 Baso % (Auto) 0.5 Absolute Neuts (auto) 9.2 H Absolute Lymphs (auto) 1.54 Nucleated RBC % 0 PT 102.3 H INR 14.0 H* Sodium 140 Potassium 3.8 Chloride 107 Carbon Dioxide 30.0 Anion Gap 3 L BUN 16 Creatinine 0.92 Estim Creat Clear Calc 39.47 Est GFR (MDRD) Af Amer 74 Est GFR (MDRD) Non-Af 62 BUN/Creatinine Ratio 17.4 Glucose 99 Calcium 9.1 Radiography Diagnostic Testing: Clinical Impression(s) from Imaging Studies Brain CT 01/27/24 08:50 IMPRESSION: 1. Chronic involutional changes of the brain. Electronically Signed: Glenroy Wong MD at 9:43 EDT , Cervical Spine CT 01/27/24 08:50 IMPRESSION: 1. Multilevel degenerative changes, as described above. Electronically Signed: Glenroy Wong MD at 9:48 EDT , Discharge Plan Triage Chief Complaint: Fall ED Provider: Princess Bowling Dx/Rx/DC Orders Clinical Impression: Laceration of scalp, Anticoagulant long-term use, Dizziness, Supratherapeutic INR Instructions: ED Head Injury (Adult), ED Laceration, Skin Adhesive Prescriptions: No Action rosuvastatin 10 mg tablet 10 mg PO DAILY Qty: 30 5RF multivitamin [Multiple Vitamins] Tablet 1 tab PO DAILY warfarin 5 mg tablet 5 mg PO DAILY Primary Care Provider: Ap Rutherford Referrals: Ap Rutherford MD [Primary Care Provider] - Activity Restrictions/Additional Instructions: Take Tylenol as needed for pain. Do not apply any antibiotic ointment or Vaseline products to the glue as it will dissolve prematurely. Should stay in for 5 days at least and instructed flake out. Follow-up with your primary care doctor for Coumadin checks you can discuss tetanus immunization if you would like at that time. Return if you have a progression with your symptoms or worsening instability, headache or new neurologic symptoms. Print Language: Uzbek Disposition Disposition: Acute Care Hospital [facility]
[2024-01-27 10:42] LABS: Absolute Lymphocyte Count 1.54 X10^3/uL (0.83-4.51); Absolute Neutrophil Count 9.2 X10^3/uL (2.0-7.7); Basophil# 0.06 X10^3/uL; Basophil% 0.5 % (0-1); Eosinophil# 0.08 X10^3/uL; Eosinophils% 0.7 % (0-5); Hematocrit 39.5 % (37-47); Hemoglobin 12.7 g/dL (12.0-15.0); Lymphocyte # 1.54 X10^3/ul (0.83-4.51); Lymphocyte % 13.5 % (19-41); Mean Corp Hgb Conc 32.2 g/dL (32-36); Mean Corpuscular Hgb 29.9 pg (27.0-32.0); Mean Corpuscular Volume 92.9 fL (81-99); Mean Platelet Vol. 10.1 fl (6.2-12.0); Monocyte# 0.53 X10^3/uL; Monocyte% 4.6 % (0-10); NRBC Flagged by Analyzer 0 % (0-5); Neutrophil # 9.17 X10^3/uL (2.7-7.7); Neutrophil % 80.3 % (47-70); Platelet Count 249 K/mm3 (150-450); RBC Distribution Width CV 13.5 % (11.6-14.6); RBC Distribution Width SD 45.9 fl (35.1-43.9); Red Blood Count 4.25 M/mm3 (4.2-5.4); White Blood Count 11.4 K/mm3 (4.4-11.0)
[2024-01-27 10:43] LABS: Anion Gap 3 (5-15); BUN 16 mg/dL (7-18); BUN/Creat Ratio 17.4 RATIO (10-20); Calcium,Total 9.1 mg/dL (8.5-10.1); Chloride 107 mmol/L (98-107); Creatinine, Serum 0.92 mg/dL (0.55-1.02); EST Glomerular Filtration Rate 62 mL/min (>60); Est Glom Filt Rate - Afr Amer 74 mL/min (>60); Estimated Creatinine Clearance 39.47 ml/min; Glucose 99 mg/dL (74-106); Potassium 3.8 mmol/L (3.5-5.1); Sodium Level 140 mmol/L (136-145)
[2024-01-27 10:50] LABS: Prothrombin Time (Protime)PT. 102.3 SECONDS (11.7-14.9)
--- NOTE | 2024-01-27 11:38 | NURSING ---
MED SURG KITTOE FALL, DIZZINESS
--- NOTE | 2024-01-27 11:39 | HP.PCM.HOS_ITS ---
HPI - General General Date of Admission: 01/27/24 Date of Service: 01/27/24 Chief Complaint: Fall with head injury HPI Narrative LIBAN TRACEY, is a 84 F with past medical history signal for paroxysmal A-fib with recent CVA with residual left-sided weakness who presented to the emergency department following a fall. Per patient she lost her balance was tried. All resulting in patient falling and bumping her head. She did develop an occipital laceration was brought to the emergency department. CT of the head obtained did not show any intracranial hemorrhage did reveal chronic involutional changes involving the brain. Patient INR was markedly elevated at 14. Did receive vitamin K admitted to regular nursing floor for subsequent manage [facility] Medical History Conjunctivitis, right eye History of TIA (transient ischemic attack) (12/05/20) Secondary pulmonary arterial hypertension CVA (cerebral vascular accident) Osteoarthritis History of basal cell carcinoma History of rheumatic fever Home Medications ?Medication ?Instructions ?Recorded ?Last Taken ?Type multivitamin (Multiple Vitamins 1 tab PO DAILY SUPPLEMENT 08/14/23 01/26/24 History tablet) rosuvastatin 10 mg tablet 10 mg PO DAILY CHOLESTEROL #30 11/26/23 01/26/24 Rx tabs magnesium oxide 400 mg PO DAILY SUPPLEMENT 01/27/24 01/26/24 History warfarin 4 mg tablet 4 mg PO TUTH BLOOD THINNER 01/27/24 01/22/24 History warfarin 5 mg tablet 5 mg PO SUMOWEFRSA BLOOD THINNER 01/27/24 01/25/24 History zinc acetate 50 mg (zinc) capsule 50 mg PO DAILY PRN SUPPLEMENT 01/27/24 Unknown History Allergy/AdvReac Type Severity Reaction Status Date / Time No Known Allergies Allergy Verified 11/25/23 09:56 Surgical History H/O arthroscopic knee surgery History of carpal tunnel release Social History household members: none housing: house Smoking Status: Never smoker alcohol intake: never substance use type: does not use ROS ROS Narrative GENERAL: denies fever, chills, night sweats, weight loss, anorexia HEENT: headache,denies sinus congestion, or drainage, dysphagia RESPIRATORY: denies cough, sputum production, shortness of breath, dyspnea on exertion CARDIAC: denies chest pain, palpitations, orthopnea, PND GASTROINTESTINAL: denies abdominal pain, nausea, vomiting, melena, GENITOURINARY: denies dysuria, urgency, frequency, heamaturia EXTREMITY: denies swelling MUSCULOSKELETAL: denies current joint pain or tenderness NEUROLOGIC: denies focal numbness, weakness, tingling HEMATOLOGIC: easy bruising INTEGUMENT: denies rashes PSYCHIATRIC: denies suicidal or homicidal ideation Vital Signs Vital Signs Vital Signs: 01/27/24 08:15 01/27/24 08:24 01/27/24 10:14 Temperature 97.1 F L Temperature Source Temporal Pulse Rate 80 88 Respiratory Rate 18 18 Respiratory Effort Normal Blood Pressure 151/71 H 158/69 H Blood Pressure Mean 97 98 Pulse Ox 98 98 Oxygen Delivery Method Room Air Room Air Room Air 01/27/24 11:35 Temperature 97.7 F L Temperature Source Pulse Rate 78 Respiratory Rate 18 Respiratory Effort Blood Pressure 158/65 H Blood Pressure Mean 96 Pulse Ox 98 Oxygen Delivery Method Weight Weight: 68.13 kg Body Mass Index (BMI) 28.3 Physical Exam Narrative GENERAL: cooperative HEENT: Occipital laceration with a bandage wrapped around the head EYES; Anicteric, Normal Conjunctiva NECK; supple, normal thyroid, RESPIRATORY: Diminished to auscultation CARDIOVASCULAR: Regular S1 S2, GI: soft, normoactive bowel sounds, : No Renal angle tenderness; EXTREMITIES: No edema, no clubbing, MUSCULOSKELETAL: no muscle wasting NEURO: Awake; left-sided hemiparesis SKIN: No Rash PSYCH; Flat affect Results Lab / Micro Data 01/27/24 10:20 01/27/24 10:20 Labs: Laboratory Results - last 24 hr 01/27/24 10:20: WBC 11.4 H, RBC 4.25, Hgb 12.7, Hct 39.5, MCV 92.9, MCH 29.9, MCHC 32.2, RDW Std Deviation 45.9 H, RDW Coeff of Alfredo 13.5, Plt Count 249, MPV 10.1, Immature Gran % (Auto) 0.400, Neut % (Auto) 80.3 H, Lymph % (Auto) 13.5 L, [place] % (Auto) 4.6, Eos % (Auto) 0.7, Baso % (Auto) 0.5, Absolute Neuts (auto) 9.2 H, Absolute Lymphs (auto) 1.54, Nucleated RBC % 0, PT 102.3 H, INR 14.0 H*, Sodium 140, Potassium 3.8, Chloride 107, Carbon Dioxide 30.0, Anion Gap 3 L, BUN 16, Creatinine 0.92, Estim Creat Clear Calc 39.47, Est GFR (MDRD) Af Amer 74, Est GFR (MDRD) Non-Af 62, BUN/Creatinine Ratio 17.4, Glucose 99, Calcium 9.1 Imaging Radiology Impression Brain CT 01/27/24 08:50 IMPRESSION: 1. Chronic involutional changes of the brain. Electronically Signed: Glenroy Wong MD at 9:43 EDT , Cervical Spine CT 01/27/24 08:50 IMPRESSION: 1. Multilevel degenerative changes, as described above. Electronically Signed: Glenroy Wong MD at 9:48 EDT , Assessment & Plan Assessment/Plan (1) Supratherapeutic INR: (2) Laceration of scalp: PLAN: Plan Patient is an 84-year-old lady with history of CVA, paroxysmal A-fib systemic anticoagulation with Coumadin who presented following a fall 1. Fall with scalp laceration ? Patient did develop significant bleeding exacerbated by the fact that she is on Coumadin with a supratherapeutic INR. Bleeding was controlled in the emergency department subsequently admitted to regular nursing floor for further management 2. Supratherapeutic INR ? Patient INR on admission was 14.0. Did receive vitamin K 10 mg in the ED Coumadin subsequently held. Daily monitoring with INR ordered 3. Paroxysmal A-fib ? Patient is on Coumadin presented with a supratherapeutic INR. Coumadin subsequently held. Patient's rate is controlled 4. Valvular heart disease ? 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 Recent CVA ? With residual left-sided hemiparesis patient was previously on aspirin and Plavix discontinued and placed on warfarin. Requested for PT OT eval 6. Dyslipidemia -Patient is on statin therapy, continued at home dose 7. DVT prophylaxis ? No indication for DVT prophylaxis given patient's supratherapeutic INR Time spent in the patient's overall evaluation,decision-making process, review of diagnostic data, adjustment of management, discussion with other providers, nursing nursing and ancillary staff involved in patient's care documentation, 75 Minutes Advance planning; did discuss with the patient and family regarding advanced directives as well as CODE STATUS. Did explain the various scenarios involved ( FULL CODE, DNR CCA, DNR CCA with no intubation, and DNR CC and what each meant) patient and family elected to remain full code with CPR and intubation if needed. Order was placed. Time spent on discussion 16 minutes. Charges/Coding Visit Charges Inpatient E&M: 22535 Init Hosp L3 Multi Select Codes Visit Charges Visit Charges: 76441 Init Hosp L3 Hospitalists' Procedures Procedures: 91665 Advncd Care Plan 30 Min
[2024-01-27 11:59] LABS: Mucous, Urine 0 SEEN /hpf (<or=2+)
[2024-01-27] MEDS: 0.9% Normal Saline (1000mL) 1,000 ML 100 ML IV (12:08)
[2024-01-27] MEDS: Phytonadione (Vit K) 5 MG in 0.9% Normal Saline (50mL Bag) 50 ML 150 MG IV (12:09)
[2024-01-27 12:15] LABS: Color, Urine Amber (Yellow); Glucose, Dipstick Normal (Normal); Ketone-Dipstick 15 mg/dl (Negative); Leukocyte Esterase-Dipstick 100 /ul (Negative); Nitrite-Dipstick Negative (Negative); Occult Blood-Urine 250 /ul (Negative); Protein-Dipstick 100 mg/dl (Negative); Specific Gravity, Urine 1.015 (1.002-1.030); Urine Bilirubin Dipstick Negative (Negative); Urine Clarity Cloudy (Clear); Urine Urobilinogen Normal (Normal); Urine pH 6.5 (5.0 - 8.0)
[2024-01-27 12:29] LABS: Bacteria RARE /hpf (None Seen); Red Blood Cells-Urine 50-100 SEEN /hpf (0-5); Squamous Epithelial Cells - UA 0-5 SEEN /hpf (5-10); White Blood Cells 5-10 SEEN /hpf (0-5)
[2024-01-27] MEDS: Acetaminophen 500 MG Tablet 1000 MG PO ×2 (13:06→21:25)
[2024-01-27] MEDS: oxyCODONE 5 MG Tablet PO (13:06)
[2024-01-27] MEDS: Ceftriaxone 1 GM/50 ML BAG IV (14:53)
--- NOTE | 2024-01-27 16:00 | NURSING ---
This RN taking over care at this time
[2024-01-28 03:10] VITALS: BP 118/75; PULSE 73; RESP 18; TEMP 36.2; O2SAT 97
[2024-01-28 05:25] VITALS: BMI 28.3
--- NOTE | 2024-01-28 06:20 | PCM.PN.HOSP ---
Reason for Visit Reason for Visit: Diagnoses Abnormal coagulation profile (01/27/24) Laceration without foreign body of scalp, initial encounter (01/27/24) Subjective Subjective Patient seen INR is down to 1.5 bleeding appears to have subsided urinalysis however came back consistent with acute cystitis Objective Data Objective Data Vital Signs: Vital Signs Temp Pulse Resp BP Pulse Ox O2 Del Method 97.1 F L 73 18 118/75 97 Room Air 01/28/24 03:10 01/28/24 03:10 01/28/24 03:10 01/28/24 03:10 01/28/24 03:10 01/28/24 03:10 Oxygen Delivery Method Room Air Weight: 68.2 kg Body Mass Index (BMI) 28.3 Intake & Output: Intake and Output for Last 24 Hours 01/26/24 01/27/24 01/28/24 23:59 23:59 23:59 Intake Total 376.83 / 376.83 Balance 376.83 / 376.83 Lab / Micro Data 01/28/24 07:01 01/28/24 07:01 Labs: Laboratory Results - last 24 hr 01/27/24 10:20: WBC 11.4 H, RBC 4.25, Hgb 12.7, Hct 39.5, MCV 92.9, MCH 29.9, MCHC 32.2, RDW Std Deviation 45.9 H, RDW Coeff of Alfredo 13.5, Plt Count 249, MPV 10.1, Immature Gran % (Auto) 0.400, Neut % (Auto) 80.3 H, Lymph % (Auto) 13.5 L, Adams % (Auto) 4.6, Eos % (Auto) 0.7, Baso % (Auto) 0.5, Absolute Neuts (auto) 9.2 H, Absolute Lymphs (auto) 1.54, Nucleated RBC % 0, PT 102.3 H, INR 14.0 H*, Sodium 140, Potassium 3.8, Chloride 107, Carbon Dioxide 30.0, Anion Gap 3 L, BUN 16, Creatinine 0.92, Estim Creat Clear Calc 39.47, Est GFR (MDRD) Af Amer 74, Est GFR (MDRD) Non-Af 62, BUN/Creatinine Ratio 17.4, Glucose 99, Calcium 9.1 01/27/24 11:46: Urine Color Joie, Urine Clarity Cloudy, Urine pH 6.5, Ur Specific [place] 1.015, Urine Protein 100 H, Urine Glucose (UA) Normal, Urine Ketones 15 H, Urine Occult Blood 250 H, Urine Nitrite Negative, Urine Bilirubin Negative, Urine Urobilinogen Normal, Ur Leukocyte Esterase 100 H, Urine RBC 50-100 SEEN, Urine WBC 5-10 SEEN, Ur Squamous Epith Cells 0-5 SEEN, Urine Bacteria RARE, Urine Mucus 0 SEEN Radiography Diagnostic Testing: Radiology Impression Brain CT 01/27/24 08:50 IMPRESSION: 1. Chronic involutional changes of the brain. Electronically Signed: Glenroy Wong MD at 9:43 EDT , Cervical Spine CT 01/27/24 08:50 IMPRESSION: 1. Multilevel degenerative changes, as described above. Electronically Signed: Glenroy Wong MD at 9:48 EDT , Physical Exam Narrative GENERAL: cooperative HEENT: Occipital laceration with a bandage wrapped around the head EYES; Anicteric, Normal Conjunctiva NECK; supple, normal thyroid, RESPIRATORY: Diminished to auscultation CARDIOVASCULAR: Regular S1 S2, GI: soft, normoactive bowel sounds, : No Renal angle tenderness; EXTREMITIES: No edema, no clubbing, MUSCULOSKELETAL: no muscle wasting NEURO: Awake; left-sided hemiparesis SKIN: No Rash PSYCH; Flat affect Assessment & Plan Assessment/Plan (1) Supratherapeutic INR: (2) Laceration of scalp: PLAN: Plan Patient is an 84-year-old lady with history of CVA, paroxysmal A-fib systemic anticoagulation with Coumadin who presented following a fall 1. Fall with scalp laceration ? Patient did develop significant bleeding exacerbated by the fact that she is on Coumadin with a supratherapeutic INR. Bleeding was controlled in the emergency department subsequently admitted to regular nursing floor for further management 2. Supratherapeutic INR ? Patient INR on admission was 14.0. Did receive vitamin K 10 mg in the ED Coumadin subsequently held. Daily monitoring with INR ordered ? 01/28/2024; INR down to 1.5 Coumadin resumed repeat INR ordered for a.m. 3. Paroxysmal A-fib ? Patient is on Coumadin presented with a supratherapeutic INR. Coumadin subsequently held. Patient's rate is controlled 4. Valvular heart disease ? 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 Recent CVA ? With residual left-sided hemiparesis patient was previously on aspirin and Plavix discontinued and placed on warfarin. Requested for PT OT eval 6. Dyslipidemia -Patient is on statin therapy, continued at home dose 7. DVT prophylaxis ? No indication for DVT prophylaxis given patient's supratherapeutic INR 8. Acute cystitis ? Patient started on ceftriaxone urine culture sent with plan to adjust antibiotic therapy pending receipt of culture result Time spent in the patient's overall evaluation,decision-making process, review of diagnostic data, adjustment of management, discussion with other providers, nursing nursing and ancillary staff involved in patient's care documentation, 52 Minutes Charges/Coding Visit Charges Inpatient E&M: 06326 [facility] L[facility]
[2024-01-28] MEDS: Acetaminophen 500 MG Tablet 1000 MG PO ×2 (07:18→15:26)
[2024-01-28 07:29] LABS: Absolute Lymphocyte Count 1.86 X10^3/uL (0.83-4.51); Absolute Neutrophil Count 4.2 X10^3/uL (2.0-7.7); Basophil# 0.04 X10^3/uL; Basophil% 0.6 % (0-1); Eosinophil# 0.13 X10^3/uL; Eosinophils% 1.9 % (0-5); Hematocrit 34.8 % (37-47); Hemoglobin 11.1 g/dL (12.0-15.0); Lymphocyte # 1.86 X10^3/ul (0.83-4.51); Lymphocyte % 27.4 % (19-41); Mean Corp Hgb Conc 31.9 g/dL (32-36); Mean Corpuscular Hgb 29.7 pg (27.0-32.0); Mean Platelet Vol. 10.4 fl (6.2-12.0); Monocyte# 0.51 X10^3/uL; Monocyte% 7.5 % (0-10); NRBC Flagged by Analyzer 0 % (0-5); Neutrophil # 4.23 X10^3/uL (2.7-7.7); Neutrophil % 62.3 % (47-70); Platelet Count 243 K/mm3 (150-450); RBC Distribution Width CV 13.3 % (11.6-14.6); RBC Distribution Width SD 45.6 fl (35.1-43.9); Red Blood Count 3.74 M/mm3 (4.2-5.4); White Blood Count 6.8 K/mm3 (4.4-11.0)
[2024-01-28 07:30] LABS: International Normalized Ratio 1.5; Prothrombin Time (Protime)PT. 18.1 SECONDS (11.7-14.9)
[2024-01-28 07:45] LABS: Anion Gap 6 (5-15); BUN 19 mg/dL (7-18); BUN/Creat Ratio 20.7 RATIO (10-20); Calcium,Total 8.4 mg/dL (8.5-10.1); Chloride 108 mmol/L (98-107); Creatinine, Serum 0.92 mg/dL (0.55-1.02); EST Glomerular Filtration Rate 62 mL/min (>60); Est Glom Filt Rate - Afr Amer 75 mL/min (>60); Estimated Creatinine Clearance 39.49 ml/min; Glucose 100 mg/dL (74-106); Magnesium 2.2 mg/dL (1.6-2.6); Phosphorus 3.3 mg/dL (2.5-4.9); Potassium 3.9 mmol/L (3.5-5.1); Sodium Level 143 mmol/L (136-145)
[2024-01-28 08:53] VITALS: BP 133/73; PULSE 84; RESP 14; TEMP 36.5; O2SAT 99
[2024-01-28] MEDS: Multivitamins,Therapeutic Tablet 1 TABLET PO (09:25)
[2024-01-28] MEDS: Magnesium Chloride 64 MG Delay Rel.Tablet 128 MG PO (09:25)
[2024-01-28] MEDS: Ceftriaxone 1 GM/50 ML BAG IV (09:26)
[2024-01-28] MEDS: 0.9% Saline Lock 10 ML Syringe IV (09:27)
--- NOTE | 2024-01-28 14:50 | CASEMGMT ---
CHRISTIAN GUERRA Assessment: Face to Face with pt for initial transition planning/care coordination assessment. CHRISTIAN GUERRA introduced self and role at [facility], pt voices understanding and consents to assessment. Pt is A&O x4 and answers all questions appropriately at this time. Pt sitting up in chair in no distress, pt daughter sitting at bedside. Pt agreeable to discussing DC plan with daughter in the room. Care providers, pharmacy, and demographics verified/updated. Admitting Dx: Fall, Coagulopathy PCP: Krish Specialists: Ish - privacy attorney, Timbo - Neurologist Preferred Pharmacy: [facility] Insurance: [employer] Prescription Benefit: yes LNOK: Nicol - daughter, Deanna - Daughter Living Arrangements: Pt lives with daughter and MAMIE in a 1 story home with 4 handrails. Pt states I with dressing but needs assistance with showering, cooking, cleaning. Transportation: Pt family provides transportation. DME: Grab bars, cane, walker, shower bench, lift chair, rollator HHC/SNF: Previously at [facility], [facility]. [facility]. Pt states currently getting PT and OT at [facility] and has no concerns with going home at time of dc. Pt states no further concerns/needs. CM to follow. Advised pt to ask CM if any further question/concerns/needs arise, voices understanding. Pt Goal: Home Plan: Home, will follow plan of care. Cyril GONZALES CM
--- NOTE | 2024-01-28 14:55 | CHAPLAIN ---
Type of Pastoral Visit ___ Initial Visit ___ Follow-up Visit ___ On-call Visit ___ General Patient Visit ___ Spiritual Assessment ___ Family Conference ___ Bereavement ___ Rapid Response ___ Code Blue ___ Other (describe below) Pastoral Care Referral From ___ Patient ___ Family ___ Nurse ___ Physician ___ Poultry Slaughterer ___ Consulting Practice Manager ___ Other (describe below) Sacrament/Intervention ___ Active listening ___ Anointing ___ Anabaptist ___ Bereavement ___ Communion ___ Paula exploration ___ ___ Life review ___ Prayer ___ Reconciliation ___ Sacrament of Sick ___ Supportive presence ___ Wedding ___ Other (describe below) Pastoral Comments patient was busy with staff at time of attempted visit
[2024-01-28 15:20] VITALS: BP 100/56; PULSE 81; RESP 16; TEMP 36.6; O2SAT 98
[2024-01-28 22:22] VITALS: BP 90/56; PULSE 86; RESP 18; TEMP 36.4; O2SAT 97
[2024-01-28 23:52] VITALS: BP 101/57; PULSE 87; RESP 18; TEMP 36.8; O2SAT 97
[2024-01-29 03:58] VITALS: BMI 28.0
[2024-01-29 05:24] VITALS: BP 113/62; PULSE 83; RESP 18; TEMP 36.1; O2SAT 96
[2024-01-29 07:10] LABS: Absolute Neutrophil Count 5.4 X10^3/uL (2.0-7.7); Basophil# 0.04 X10^3/uL; Basophil% 0.5 % (0-1); Eosinophil# 0.16 X10^3/uL; Eosinophils% 1.9 % (0-5); Hemoglobin 10.9 g/dL (12.0-15.0); Lymphocyte % 26.4 % (19-41); Mean Corp Hgb Conc 32.1 g/dL (32-36); Mean Corpuscular Hgb 30.1 pg (27.0-32.0); Mean Corpuscular Volume 93.9 fL (81-99); Mean Platelet Vol. 10.2 fl (6.2-12.0); Monocyte# 0.52 X10^3/uL; Monocyte% 6.2 % (0-10); NRBC Flagged by Analyzer 0 % (0-5); Neutrophil # 5.39 X10^3/uL (2.7-7.7); Neutrophil % 64.6 % (47-70); Platelet Count 265 K/mm3 (150-450); RBC Distribution Width CV 13.5 % (11.6-14.6); RBC Distribution Width SD 46.3 fl (35.1-43.9); Red Blood Count 3.62 M/mm3 (4.2-5.4); White Blood Count 8.3 K/mm3 (4.4-11.0)
[2024-01-29 08:04] LABS: Anion Gap 7 (5-15); BUN 20 mg/dL (7-18); BUN/Creat Ratio 23.4 RATIO (10-20); Calcium,Total 8.8 mg/dL (8.5-10.1); Chloride 109 mmol/L (98-107); Creatinine, Serum 0.85 mg/dL (0.55-1.02); EST Glomerular Filtration Rate 67 mL/min (>60); Est Glom Filt Rate - Afr Amer 81 mL/min (>60); Glucose 97 mg/dL (74-106); Potassium 3.8 mmol/L (3.5-5.1); Sodium Level 142 mmol/L (136-145)
[2024-01-29 08:59] LABS: Prothrombin Time (Protime)PT. 22.2 SECONDS (11.7-14.9)
--- NOTE | 2024-01-29 09:16 | PCM.PN.HOSP ---
Reason for Visit Reason for Visit: Diagnoses Abnormal coagulation profile (01/27/24) Laceration without foreign body of scalp, initial encounter (01/27/24) Objective Data Objective Data Vital Signs: Vital Signs Temp Pulse Resp BP Pulse Ox O2 Del Method 97.0 F L 83 18 113/62 96 Room Air 01/29/24 05:24 01/29/24 05:24 01/29/24 05:24 01/29/24 05:24 01/29/24 05:24 01/29/24 05:24 Oxygen Delivery Method Room Air Weight: 148 lb 9.465 oz Body Mass Index (BMI) 28.0 Intake & Output: Intake and Output for Last 24 Hours 01/27/24 01/28/24 01/29/24 23:59 23:59 23:59 Intake Total 376.83 / 376.83 1245 / 1245 Balance 376.83 / 376.83 1245 / 1245 Lab / Micro Data 01/29/24 06:36 01/29/24 06:36 Labs: Laboratory Results - last 24 hr 01/29/24 06:36: WBC 8.3, RBC 3.62 L, Hgb 10.9 L, Hct 34.0 L, MCV 93.9, MCH 30.1, MCHC 32.1, RDW Std Deviation 46.3 H, RDW Coeff of Alfredo 13.5, Plt Count 265, MPV 10.2, Immature Gran % (Auto) 0.400, Neut % (Auto) 64.6, Lymph % (Auto) 26.4, Placer % (Auto) 6.2, Eos % (Auto) 1.9, Baso % (Auto) 0.5, Absolute Neuts (auto) 5.4, Absolute Lymphs (auto) 2.20, Nucleated RBC % 0, PT 22.2 H, INR 2.0, Sodium 142, Potassium 3.8, Chloride 109 H, Carbon Dioxide 26.0, Anion Gap 7, BUN 20 H, Creatinine 0.85, Estim Creat Clear Calc 42.50, Est GFR (MDRD) Af Amer 81, Est GFR (MDRD) Non-Af 67, BUN/Creatinine Ratio 23.4 H, Glucose 97, Calcium 8.8 Micro: Microbiology 01/27/24 11:46 Urine, Clean Catch Urine Culture - Preliminary Culture exhibits no growth. Physical Exam Narrative GENERAL: cooperative HEENT: Occipital laceration with a bandage wrapped around the head EYES; Anicteric, Normal Conjunctiva NECK; supple, normal thyroid, RESPIRATORY: Diminished to auscultation CARDIOVASCULAR: Regular S1 S2, GI: soft, normoactive bowel sounds, : No Renal angle tenderness; EXTREMITIES: No edema, no clubbing, MUSCULOSKELETAL: no muscle wasting NEURO: Awake; left-sided hemiparesis SKIN: No Rash PSYCH; Flat affect Const alert and oriented x3 HEENT normocephalic Eyes PERRL Neck no lymphadenopathy Resp normal respiratory effort Cardio regular rate and regular rhythm GI normal to inspection, nondistended, normoactive bowel sounds Extremity normal to inspection Skin no rashes or lesions noted Neuro oriented x3 Sensorium / Orientation: awake and alert Psych affect normal Assessment & Plan Assessment/Plan (1) Supratherapeutic INR: (2) Laceration of scalp: PLAN: Plan Patient is an 84-year-old lady with history of CVA, paroxysmal A-fib systemic anticoagulation with Coumadin who presented following a fall 1. Fall with scalp laceration ? Patient did develop significant bleeding exacerbated by the fact that she is on Coumadin with a supratherapeutic INR. Bleeding was controlled in the emergency department subsequently admitted to regular nursing floor for further management 2. Supratherapeutic INR ? Patient INR on admission was 14.0. Did receive vitamin K 10 mg in the ED Coumadin subsequently held. Daily monitoring with INR ordered ? 01/28/2024; INR down to 1.5 Coumadin resumed repeat INR ordered for a.m. 3. Paroxysmal A-fib ? Patient is on Coumadin presented with a supratherapeutic INR. Coumadin subsequently held. Patient's rate is controlled 4. Valvular heart disease ? 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 Recent CVA ? With residual left-sided hemiparesis patient was previously on aspirin and Plavix discontinued and placed on warfarin. Requested for PT OT eval 6. Dyslipidemia -Patient is on statin therapy, continued at home dose 7. DVT prophylaxis ? No indication for DVT prophylaxis given patient's supratherapeutic INR 8. Acute cystitis ? Patient started on ceftriaxone urine culture sent with plan to adjust antibiotic therapy pending receipt of culture result
[2024-01-29 11:00] VITALS: O2SAT 93; O2SAT 97
[2024-01-29 11:10] VITALS: BP 111/50; PULSE 79; RESP 16; TEMP 36.8; O2SAT 99
[2024-01-29] MEDS: Multivitamins,Therapeutic Tablet 1 TABLET PO (11:13)
[2024-01-29] MEDS: Magnesium Chloride 64 MG Delay Rel.Tablet 128 MG PO (11:13)
[2024-01-29] MEDS: Ceftriaxone 1 GM/50 ML BAG IV (13:02)
--- NOTE | 2024-01-29 15:28 | DS.PCM_ITS ---
Providers Date of Admission: 01/27/24 Date of Discharge: 01/29/24 Primary Care Physician: Dr. Ap Rutherford MD Reason For Visit: FALL, COAGULOPATHY Diagnosis Discharge Diagnosis (1) Supratherapeutic INR: Status: Acute Code(s): R79.1 - Abnormal coagulation profile (2) Laceration of scalp: Status: Acute Code(s): S01.01XA - Laceration without foreign body of scalp, initial encounter Plan Patient is an 84-year-old lady with history of CVA, paroxysmal A-fib systemic anticoagulation with Coumadin who presented following a fall. Upon admission she was found to have supratherapeutic INR secondary to ongoing Coumadin use and had significant bleeding following a scalp laceration. Hide INR admission was 14.0, received vitamin K 10 mg in the ED, her daily INR is now improved and is in the normal range for her paroxysmal A-fib. She is overall feeling well and has no active symptoms. She was also noted to have urinary tract infection and was started on IV antibiotics. Will complete 7 days of course with oral Cephalexin (for 5 days) Medications at Discharge Home Medications multivitamin (Multiple Vitamins tablet) 1 tab PO DAILY SUPPLEMENT 08/14/23 rosuvastatin 10 mg tablet 10 mg PO DAILY CHOLESTEROL #30 tabs 11/26/23 magnesium oxide 400 mg PO DAILY SUPPLEMENT 01/27/24 warfarin 4 mg tablet 4 mg PO TUTH BLOOD THINNER 01/27/24 warfarin 5 mg tablet 5 mg PO SUMOWEFRSA BLOOD THINNER 01/27/24 zinc acetate 50 mg (zinc) capsule 50 mg PO DAILY PRN SUPPLEMENT 01/27/24 cephalexin 500 mg capsule 500 mg PO BID #10 caps 01/29/24 Hospital Course Operations None Procedures None Summary of Care Provided Hospital Course: 84-year-old female with a to the ED following a fall and significant scalp bleeding. She was found to have supratherapeutic INR and was admitted inpatient for management of her coagulopathy. With vitamin K and monitoring her INR is now improved and is in the therapeutic range, Coumadin has been restarted. This has been ongoing for her paroxysmal A-fib. She was also found to have cystitis during her admission which is being managed with antibiotic therapy # Fall with scalp laceration ? Patient did develop significant bleeding exacerbated by the fact that she is on Coumadin with a supratherapeutic INR. Bleeding was controlled in the emergency department subsequently admitted to regular nursing floor for further management - This has resolved # Supratherapeutic INR ? Patient INR on admission was 14.0. Did receive vitamin K 10 mg in the ED Coumadin subsequently held. Daily monitoring with INR ordered ? 01/28/2024; INR down to 1.5 Coumadin resumed repeat INR ordered for a.m. - 01/29/2024: INR 2.0, continue Coumadin # Paroxysmal A-fib ? Patient is on Coumadin presented with a supratherapeutic INR. Coumadin subsequently held. Patient's rate is controlled # Valvular heart disease ? 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 - PT recommended that she can go home with help # Dyslipidemia -Patient is on statin therapy, continued at home dose # Acute cystitis ? Patient started on ceftriaxone - There has been on growth on urine culture - Will transition to Cephalexin for 5 days, starting tomorrow (01/30/24) Physical Exam Const alert and oriented x3 HEENT normocephalic Eyes PERRL Neck no lymphadenopathy Resp normal respiratory effort Cardio regular rate and regular rhythm GI normal to inspection, nondistended, normoactive bowel sounds Extremity normal to inspection Skin no rashes or lesions noted Neuro oriented x3 Sensorium / Orientation: awake and alert Psych affect normal Weight / BMI Weight Weight: 148 lb 9.465 oz Body Mass Index (BMI) 28.0 ABG / Lab / Microbiology Data 01/29/24 06:36 01/29/24 06:36 Laboratory: Laboratory Results - last 24 hr 01/29/24 06:36: WBC 8.3, RBC 3.62 L, Hgb 10.9 L, Hct 34.0 L, MCV 93.9, MCH 30.1, MCHC 32.1, RDW Std Deviation 46.3 H, RDW Coeff of Alfredo 13.5, Plt Count 265, MPV 10.2, Immature Gran % (Auto) 0.400, Neut % (Auto) 64.6, Lymph % (Auto) 26.4, Gulf % (Auto) 6.2, Eos % (Auto) 1.9, Baso % (Auto) 0.5, Absolute Neuts (auto) 5.4, Absolute Lymphs (auto) 2.20, Nucleated RBC % 0, PT 22.2 H, INR 2.0, Sodium 142, Potassium 3.8, Chloride 109 H, Carbon Dioxide 26.0, Anion Gap 7, BUN 20 H, Creatinine 0.85, Estim Creat Clear Calc 42.50, Est GFR (MDRD) Af Amer 81, Est GFR (MDRD) Non-Af 67, BUN/Creatinine Ratio 23.4 H, Glucose 97, Calcium 8.8 Microbiology: Microbiology 01/27/24 11:46 Urine, Clean Catch Urine Culture - Preliminary Culture exhibits no growth. D/C Instructions Discharge Diet: No restrictions Discharge Activity: Return to Normal Activity Meaningful Use Info Meaningful Use Meaningful Use Diagnoses (Choose all that apply): None applicable Ischemic Stroke Statin Dosing Therapy Reference: STATIN DOSE THERAPY REFERENCE: * Patients > 75 years receive moderate or high dose statin therapy. * Patients 75 years or YOUNGER should receive HIGH intensity statin dose unless contraindicated. You will be required to document reason for non-treatment if statin daily dose does not meet guidelines. HIGH DOSE STATIN THERAPY DAILY Atorvastatin > than or = to 40 mg Rosuvastatin > than or = to 20 mg Amlodipine + Atorvastatin > than or = to 2.5/40 mg Ezetimibe + Simvastatin 10/80 mg Simvastatin 80mg Discharge Plan Admission Admit Date/Time: 01/27/24 11:30 Attending Provider: Mallory Lynn Primary Care Provider: Ap Rutherford Consulting Providers: Glenroy Phelps Instructions Patient Instructions: ED Head Injury (Adult), ED Laceration, Skin Adhesive Additional Instructions / Restrictions: Take Tylenol as needed for pain. Do not apply any antibiotic ointment or Vaseline products to the glue as it will dissolve prematurely. Should stay in for 5 days at least and instructed flake out. Follow-up with your primary care doctor for Coumadin checks you can discuss tetanus immunization if you would like at that time. Return if you have a progression with your symptoms or worsening instability, headache or new neurologic symptoms. Discharge Orders/Prescriptions Prescriptions: New cephalexin 500 mg capsule 500 mg PO BID Qty: 10 0RF Continued rosuvastatin 10 mg tablet 10 mg PO DAILY Qty: 30 5RF multivitamin [Multiple Vitamins] Tablet 1 tab PO DAILY warfarin 5 mg tablet 5 mg PO SUMOWEFRSA warfarin 4 mg tablet 4 mg PO TUTH magnesium oxide 400 mg magnesium tablet 400 mg PO DAILY zinc acetate 50 mg (zinc) capsule 50 mg PO DAILY PRN (Reason: SUPPLEMENT ) Referrals / Follow Up: Ap Rutherford MD [Primary Care Provider] - Disposition Disposition (needs filled in before D/C Order can be placed): Home, Self Care Charges/Coding Visit Charges Inpatient E&M: 03360 Disch Hosp >30min
[2024-01-29] MEDS: Acetaminophen 500 MG Tablet 1000 MG PO (15:59)
[2024-01-29 16:09] VITALS: BP 116/84; PULSE 78; RESP 16; TEMP 36.2; O2SAT 99
== END 2024-01-29 17:20 | disposition home or self-care (01) | DRG 813 ==
LOC: ED 11:41 → PCU 11:56
PROVIDERS: Admitting Provider Internal Medicine; Emergency Provider Emergency Medicine; PCP Family Medicine; Visit Provider Internal Medicine
DX: D68.32 Hemorrhagic disorder due to extrinsic circulating anticoagulants (principal); I69.354 Hemiplegia and hemiparesis following cerebral infarction affecting left non-dominant side; N30.00 Acute cystitis without hematuria; I48.0 Paroxysmal atrial fibrillation; S01.01XA Laceration without foreign body of scalp, initial encounter; E78.5 Hyperlipidemia, unspecified; R58 Hemorrhage, not elsewhere classified; W19.XXXA Unspecified fall, initial encounter; Z79.01 Long term (current) use of anticoagulants; Z79.899 Other long term (current) drug therapy; T45.515A Adverse effect of anticoagulants, initial encounter
CPT/HCPCS: 36415; 70450; 72125; 80048; 81001; 83735; 84100; 85025; 85610; 87086; 94668; 97110; 97112; 97116; 97162; 97166; 97535; 99284; J7030; A4216; J3490

== ENCOUNTER 2024-03-10 11:00 | Outpatient (RCR) | payer MEDICARE, SELFPAY ==
--- NOTE | 2023-10-30 16:26 | HP.OTEVAL ---
Patient's Visit Information Visit Information Visit Information: LIBAN TRACEY is a 83 year old F, referred to Occupational Therapy by Dr. Ap Rutherford MD, with a diagnosis of CVA. Date of Evaluation: 10/30/23 Occupational Therapist: Beulah Hatch Subjective Subjective: Pt with first stroke May 2023. then another August 13 2023 . pt now currently living with daughter due to inability to complete self care tasks or IADL tasks. pt did not use any AD as means of mobility prior. pt was highly active prior walking approx 1 mile a day. Pt lived at [facility]. pt is R handed. pt denies numbness or tingling of LUE. pt with decreased motor control LUE impacting all functional tasks. pt wears a resting hand splint at night. This female would benefit from skilled OT in order to regain motor control, AROM, strength, FMC dexterity in hand manipulation necessary in order to perform self care tasks at [facility]. Objective Objective/Observation: pt arrives with lateral lean to L side. slow uncoordinated movements using walker as means of mobility with difficulty placing hand on walker due to decreased motor control. ROM Shoulder: R wfl L 0 Elbow: R wfl L 125 Forearm: R wfl L 30 supination R 60 pronation Wrist: R wfl L 30/30 CMC: R wfl MP: R wfl L 25 IP: R wfl L 25 Radial Abduction: R wfl Palmar Abduction: R wfl Opposition: thumb to RF ROM Comments: able to make make composite fist where digits touch palm unable to perform scapular elevation slight retraction Strength Shoulder: R 9 L 0 Elbow: R 11 L 10 Material Mover: L 20 pounds R 0 pounds Lateral Pinch: L 8 R 0 Tripod Pinch: L 8 R 0 Edema Other: R 18 cm L 19 cm Sensation Sensation Comments: denies numbness and tingling of LUE Nine Hole Peg Comments: unable to perform with L hand at this time Quick DASH-Disab of Arm,Shoulder& Hand Quick DASH Score: 70.4525 Goals Goal:: pt will increase L hand grasp strength by 15 pounds within 6 weeks pt will increase L hand lateral pinch strength to 4 pounds or more within 6 weeks pt will increase L hand tripod pinch strength to 4 pounds or more within 6 weeks Goal:: pt will improve shoulder flexion to 50-60 degrees for I in self care within 6 weeks Goal:: pt will demonstrate the ability to place and return 9/9 pegs on 9 hole peg assessment within less than 1.5 min within 6 weeks Goal:: pt will decrease L hand swelling to 18cm within 4 weeks Goal:: pt / caregiver will verbalize/ demonstrate 100% accuracy in LUE joint protection during sleep as well as day to day functional tasks by second session Goal:: pt will demonstrate the ability to button 5/5 buttons of various size within 6 weeks Goal:: pt will improve quick dash score by 30 or more joint within 6 weeks Rehabilitation Rehabilitation Potential: Good Anticipated Interventions Anticipated Interventions: A/AAROM/PROM, Strengthening, Edema Control, Triggerpoint Release, Modalities, Joint Protection/Energy Conservation, Fine Motor Coord/Yoandy, Neuro Reeducation, Sensory Stimulation, ADL Training and Home Program Visit Plan Frequency: 2x /Week Duration: 6 Weeks General Plan: OT POC to address improvement in L UE motor control, AROM, strength, FMC, dexterity and in hand manipulation skills as well as decrease swelling of L hand in order to maximize I in self care abilies for return to PLOF TEXT: Thank you for the opportunity to evaluate your patient. For Medicare and Medicare HMO plans, please review the plan of care and approve it. It will need to be FAXED BACK to us at [phone] for Medicare purposes. Please let me know if there are questions or concerns regarding this plan of care. Physician Signature: Date:
--- NOTE | 2023-10-30 18:19 | HP.PTEVAL ---
Patient's Visit Information Visit Information Visit Information: LIBAN TRACEY is a 83 year old F referred to Physical Therapy by Dr. Ap Rutherford MD with a diagnosis of HEMIPLEGIA AFFECTING LEFT SIDE. Date of Evaluation: 10/30/23 Physical Therapist: Vivek Carter, PT, Cert MDT, OCS Visit Plan Frequency: 2-3x /Week Duration: 4 Weeks Plan: PT INTERVENTIONS GAIT TRAINING ,BALANCE TRAINING , TRANSFER TRAINING ,AEROBIC E'XS ,FUNCTIONAL STRENGTHENING BLE STRENGTHENING AND HEP Subjective Subjective: This 83 y/o female presents to physical therapy with with CVA with left side weakness. Patient initially had CVA 06/19 affected cerebellum was admitted to [facility] where did CT scan and MRI then transferred Rehab at [facility] for ~ 9days. Patient d/c to home no device, Patient had CVA left side hemiplegia Aug 13 2023 was admitted to [facility] had MRI showed Subacute infarcts of the periventricular white matter of the right parietal lobe.Patient then transferred to [facility] then d/c to home with PT/OT for 4 weeks. Patient has home program but not compliant. Patient lives with daughter with 1 story home with 3 steps and rail and has ramp ,walk in shower in bench , grab bars and handle. Patient needs assist with bathing ,dressing able to do some self hygiene. Patient has w/c ,fww and bedside commode ,rollator. Patient needs assist with transfers. Denies paresthesia/tingling .Patient condition affects QOL and function /ADLS and walking . Patient goals to walk better. SOCAIL : lives with family Objective Objective: POSTURE: mild forward posture hips/knees flexed GAIT: reciprocal pattern with uneven step length forward posture slow henry decrease step length left leg > right decrease stance time 150 ft but very slow NEURO: denies paresthesia/tingling ,reflexes L3-4,L4-5,L5-S1 1/3 ,hypotonicity LLE BALANCE: fair with FWW TRANSFERS: sit-stand mod assist with decrease left hand placement BED MOBILITY: min assist PROM: BLE WFL MMT: quads/hams right 4-/5 ankle 4-5/ ,( peak force) left quads 17.4 ,hams 13.3 ,hip flexion 0 Balance/Special Test Scores Lower Extremity Functional Score: 13 Goals Goal 1:: Patient to be I with HEP with daughter assist Goal Time Frame: 4-6 Weeks Goal 2:: Patient to improve transfers consisted with supervision/mod I Goal Time Frame: 4-6 Weeks Goal 3:: Patient to improve quality of gait 300 ft with mod I /supervision with fww with less rest periods Goal Time Frame: 4-6 Weeks Goal 4:: Patient to improve peak force of quads/hams/hip by 5-10 points to improve function and gait Goal Time Frame: 4-6 Weeks Goal 5:: Patient to improve LFES score by 5-10# points to improve function and QOL Goal Time Frame: 4-6 Weeks Goal 6:: Patient to demonstrate 40-50% improvement with ADLS and function Goal Time Frame: 4-6 Weeks Rehabilitation Potential Physical Therapy Diagnosis: This 83 y/o female has CVA affects left side x2 past several months with gait with FWW ,decrease transfers ,balance ,endurance thus benefit from skilled PT Rehabilitation Potential: Good Anticipated Interventions Patient/Client Instruction: Educate patient on: Condition and Plan of Care For the Purpose of:: To increase ROM, To improve muscle performance and motor function, To improve ability to perform ADL's, To increase tolerance to activity/condition/position, To improve performance and independence with ADL's, To decrease level of supervision to perform tasks, To improve ability of physical actions for home/community/work/leisure, To improve health of tissue, To decrease soft tissue restriction, To improve endurance, To assume or resume ADL's and To improve tolerance to ADL's Therapeutic Exercise to Include: Strength training, Postural training, Flexibilty training and Dynamic Lumbar Stabilization Comment: JEFFY MAYERS For the Purpose of:: To improve muscle performance and motor function, To improve ability to perform ADL's, To increase tolerance to activity/condition/position, To improve performance and independence with ADL's, To improve ability of physical actions for home/community/work/leisure, To improve gait and locomotor functions, To decrease soft tissue restriction, To increase flexibility/ROM, To improve endurance, To improve balance, To improve safety with gait, To reduce risk of recurrence, To improve health and function and To improve tolerance to ADL's Text: Thank you for the opportunity to evaluate your patient. For Medicare and Medicare HMO plans, please review the plan of care and approve it. It will need to be FAXED BACK to us at [phone] for Medicare purposes. For Medicare only, by signing this I certify the plan of care. Please let me know if there are questions or concerns regarding this plan of care. Physician Signature: Date:
--- NOTE | 2023-11-27 11:47 | HP.PTREVAL ---
Re-Evaluation Intro: Dr. Ap Rutherford MD, It has been my pleasure to treat LIBAN TRACEY over the last 9 visits for HEMIPLEGIA AFFECTING LEFT SIDE. Please see the progress note below for an update on the physical therapy plan of care! Subjective Subjective: Doing good family ,wants to do 3xweek Seen Neurologist cont with PT Dr neurologjonnathan wants to do heart Monitor Also cholesterol medication Difficulty on low furniture with soft cushion Objective Objective/Function: *Patient will continue to benefit from skilled PT due to needing assistance with transfer although needs cues and assist and decrease gait but improved with gait endurance thus goals are appropriate * POSTURE: mild forward posture hips/knees flexed GAIT: reciprocal pattern with uneven step length forward posture slow henry improved henry and step length NEURO: denies paresthesia/tingling ,reflexes L3-4,L4-5,L5-S1 1/3 ,hypotonicity LLE BALANCE: fair with FWW TRANSFERS: sit-stand min assist with decrease left hand placement cues to and assist to maintain trunk forward BED MOBILITY: min assist PROM: BLE WFL MMT: quads/hams right 4-/5 ankle 4-5/ ,( peak force) left quads 17.4 ,hams 13.3 ,hip flexion 5 .8 Plan Plan Plan: PT INTERVENTIONS GAIT TRAINING ,BALANCE TRAINING , TRANSFER TRAINING ,AEROBIC E'XS ,FUNCTIONAL STRENGTHENING BLE STRENGTHENING AND HEP Balance/Gait/Functional tests Balance/Special Test Scores Lower Extremity Functional Score: 14 Goals Goals Goal 1:: Patient to be I with HEP with daughter assist Goal Time Frame: 4-6 Weeks Goal Progress: Progressing Goal 2:: Patient to improve transfers consisted with supervision/mod I Goal Time Frame: 4-6 Weeks Goal Progress: Progressing Goal 3:: Patient to improve quality of gait 300 ft with mod I /supervision with fww with less rest periods Goal Time Frame: 4-6 Weeks Goal 4:: Patient to improve peak force of quads/hams/hip by 5-10 points to improve function and gait Goal Time Frame: 4-6 Weeks Goal Progress: Progressing Goal 5:: Patient to improve LFES score by 5-10# points to improve function and QOL Goal Time Frame: 4-6 Weeks Goal Progress: Progressing Goal 6:: Patient to demonstrate 40-50% improvement with ADLS and function Goal Time Frame: 4-6 Weeks Goal Progress: Progressing Anticipated Interventions Anticipated Interventions Patient/Client Instruction: Educate patient on: Condition and Plan of Care For the Purpose of:: To increase ROM, To improve muscle performance and motor function, To improve ability to perform ADL's, To increase tolerance to activity/condition/position, To improve performance and independence with ADL's, To decrease level of supervision to perform tasks, To improve ability of physical actions for home/community/work/leisure, To improve health of tissue, To decrease soft tissue restriction, To improve endurance, To assume or resume ADL's and To improve tolerance to ADL's Therapeutic Exercise to Include: Strength training, Postural training, Flexibilty training and Dynamic Lumbar Stabilization Comment: JEFFY MAYERS For the Purpose of:: To improve muscle performance and motor function, To improve ability to perform ADL's, To increase tolerance to activity/condition/position, To improve performance and independence with ADL's, To improve ability of physical actions for home/community/work/leisure, To improve gait and locomotor functions, To decrease soft tissue restriction, To increase flexibility/ROM, To improve endurance, To improve balance, To improve safety with gait, To reduce risk of recurrence, To improve health and function and To improve tolerance to ADL's Re-Evaluation Ending Re-evaluation ending: Please do not hesitate to contact me at [phone] by phone or if you have questions or concerns regarding this new plan of care! Sincerely, Vivek Carter, PT, Cert MDT, OCS
--- NOTE | 2023-12-03 13:34 | HP.OTREVAL ---
Re-Evaluation Intro: Dr. Ap Rutherford MD, It has been my pleasure to treat LIBAN TRACEY over the last 10 visits for CVA. Please see the progress note below for an update on the occupational therapy plan of care! Subjective Subjective: pt arrives this date states she is doing well no new complaints. 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 Plan Plan Frequency: 3x /Week Duration: 6 Weeks Visits in this POC: (Insurance- No limit- Med Cecilia) 6 weeks - 2 x week Plan: 6 weeks 3x a week Goals Goals Patient Goals: Regain Mobility, Regain Strength, Decrease Swelling/Stiffness, Improve Fine Motor Skills, Use Hand/Wrist/Arm Normally Again, Increase ROM, Be More Independent in ADLS, Resume Former Household Responsibilities (Cooking,Cleaning,Yard, etc.) and Resume Hobbies Goal:: pt will increase L hand grasp strength by 15 pounds within 6 weeks--- able to hold onto dynomometer without dropping unable to squeeze to meet one pound yet at this time pt will increase L hand lateral pinch strength to 4 pounds or more within 6 weeks-- 0 pounds pt will increase L hand tripod pinch strength to 4 pounds or more within 6 weeks--- 0 pounds Goal:: pt will improve shoulder flexion to 50-60 degrees for I in self care within 6 weeks approx 10 degrees however pt does compensate by arching back Goal:: pt will demonstrate the ability to place and return 9/9 pegs on 9 hole peg assessment within less than 1.5 min within 6 weeks pt is able to place x1 peg this date with support at elbow due to decreased motor control at shoulder Goal:: pt will decrease L hand swelling to 18cm within 4 weeks L 18.5 around wrist L 18 cm in palm Goal:: pt / caregiver will verbalize/ demonstrate 100% accuracy in LUE joint protection during sleep as well as day to day functional tasks by second session -- goal met pt wears brace at night and sleeps with arm protected Goal:: pt will demonstrate the ability to button 5/5 buttons of various size within 6 weeks --- ongoing Goal:: pt will improve quick dash score by 30 or more joint within 6 weeks improved by 10 points ongoing Anticipated Interventions Anticipated Interventions Anticipated Interventions: A/AAROM/PROM, Strengthening, Edema Control, Triggerpoint Release, Modalities, Joint Protection/Energy Conservation, Fine Motor Coord/Yoandy, Neuro Reeducation, Sensory Stimulation, ADL Training and Home Program Re-Evaluation Ending Re-evaluation ending: Please do not hesitate to contact me at [phone] by phone or if you have questions or concerns regarding this new plan of care! Sincerely, Beulah Hatch
--- NOTE | 2023-12-24 14:24 | HP.PTREVAL ---
Re-Evaluation Intro: Dr. Ap Rutherford MD, It has been my pleasure to treat LIBAN TRACEY over the last 19 visits for HEMIPLEGIA AFFECTING LEFT SIDE. Please see the progress note below for an update on the physical therapy plan of care! Subjective Subjective: Doing good Objective Objective/Function: *Patient will continue to benefit from skilled PT due to needing assistance with transfer although needs cues and assist and decrease gait but improved with gait progressing with gait with FWW SBA and progressed to cane with CGA endurance thus goals are appropriate * POSTURE: mild forward posture hips/knees flexed GAIT: reciprocal pattern with uneven step length forward posture slow henry improved henry and step length NEURO: denies paresthesia/tingling ,reflexes L3-4,L4-5,L5-S1 1/3 ,hypotonicity LLE BALANCE: fair with FWW TRANSFERS: sit-stand CGA/min assist with decrease left hand placement cues to and assist to maintain trunk forward BED MOBILITY: min assist PROM: BLE WFL MMT: quads/hams right 4-/5 ankle 4-5/ ,( peak force) left quads 19.6 ,hams 17.3 ,hip flexion 8 .2 Plan Plan Plan: PT INTERVENTIONS GAIT TRAINING ,BALANCE TRAINING , TRANSFER TRAINING ,AEROBIC E'XS ,FUNCTIONAL STRENGTHENING BLE STRENGTHENING AND HEP Balance/Gait/Functional tests Balance/Special Test Scores Lower Extremity Functional Score: 14 Goals Goals Goal 1:: Patient to be I with HEP with daughter assist Goal Time Frame: 4-6 Weeks Goal Progress: Progressing Goal 2:: Patient to improve transfers consisted with supervision/mod I Goal Time Frame: 4-6 Weeks Goal Progress: Progressing Goal 3:: Patient to improve quality of gait 300 ft with mod I /supervision with fww with less rest periods Goal Time Frame: 4-6 Weeks Goal Progress: Progressing Goal 4:: Patient to improve peak force of quads/hams/hip by 5-10 points to improve function and gait Goal Time Frame: 4-6 Weeks Goal Progress: Progressing Goal 5:: Patient to improve LFES score by 5-10# points to improve function and QOL Goal Time Frame: 4-6 Weeks Goal Progress: Progressing Goal 6:: Patient to demonstrate 40-50% improvement with ADLS and function Goal Time Frame: 4-6 Weeks Goal Progress: Progressing Anticipated Interventions Anticipated Interventions Patient/Client Instruction: Educate patient on: Condition and Plan of Care For the Purpose of:: To increase ROM, To improve muscle performance and motor function, To improve ability to perform ADL's, To increase tolerance to activity/condition/position, To improve performance and independence with ADL's, To decrease level of supervision to perform tasks, To improve ability of physical actions for home/community/work/leisure, To improve health of tissue, To decrease soft tissue restriction, To improve endurance, To assume or resume ADL's and To improve tolerance to ADL's Therapeutic Exercise to Include: Strength training, Postural training, Flexibilty training and Dynamic Lumbar Stabilization Comment: TALIBCERVICAL For the Purpose of:: To improve muscle performance and motor function, To improve ability to perform ADL's, To increase tolerance to activity/condition/position, To improve performance and independence with ADL's, To improve ability of physical actions for home/community/work/leisure, To improve gait and locomotor functions, To decrease soft tissue restriction, To increase flexibility/ROM, To improve endurance, To improve balance, To improve safety with gait, To reduce risk of recurrence, To improve health and function and To improve tolerance to ADL's Re-Evaluation Ending Re-evaluation ending: Please do not hesitate to contact me at [phone] by phone or if you have questions or concerns regarding this new plan of care! Sincerely, Vivek Carter PT, Cert MDT, OCS
--- NOTE | 2024-01-22 12:26 | HP.PTREVAL_ITS ---
Re-Evaluation Intro: Dr. Ap Rutherford MD, It has been my pleasure to treat LIBAN TRACEY over the last 29 visits for HEMIPLEGIA AFFECTING LEFT SIDE. Please see the progress note below for an update on the physical therapy plan of care! Subjective Subjective: Doing good ,looking apartment or I living Objective Objective/Function: *Patient will continue to benefit from skilled PT due to needing less assistance with transfer although needs cues and assist and increased strength for function but improved with cane 100 ft with SBA /CGA goals cont to be appropriate and updated* with gait progressing with gait with FWW SBA and progressed to cane with CGA endurance thus goals are appropriate * POSTURE: mild forward posture hips/knees flexed GAIT: reciprocal pattern with uneven step length forward posture slow henry improved henry and step length ,able to ambulate with cane NEURO: denies paresthesia/tingling ,reflexes L3-4,L4-5,L5-S1 1/3 ,hypotonicity LLE BALANCE: fair with FWW TRANSFERS: sit-stand CGA/ light min assist with decrease left hand placement cues to and assist to maintain trunk forward BED MOBILITY: SBA PROM: BLE WFL MMT: quads/hams right 4-/5 ankle 4-5/ ,( peak force) left quads 26.8 ,hams 21.3 ,hip flexion 27.8 Plan Plan Plan: PT INTERVENTIONS GAIT TRAINING ,BALANCE TRAINING , TRANSFER TRAINING ,AEROBIC E'XS ,FUNCTIONAL STRENGTHENING BLE STRENGTHENING AND HEP Balance/Gait/Functional tests Balance/Special Test Scores Lower Extremity Functional Score: 18 Goals Goals Goal 1:: Patient to be I with HEP with daughter assist Goal Time Frame: 4-6 Weeks Goal Progress: Progressing Goal 2:: Patient to improve transfers consisted with supervision/mod I Goal Time Frame: 4-6 Weeks Goal Progress: Progressing Goal 3:: Patient to improve quality of gait 500 ft with mod I with fww ( new goal) Goal Time Frame: 4-6 Weeks Goal Progress: Progressing Goal 4:: Patient to improve peak force of quads/hams/hip by 5-10 points to impro ve function and gait ( NEW GOAL) Goal Time Frame: 4-6 Weeks Goal Progress: Progressing Goal 5:: Patient to improve LFES score by 5-10# points to improve function and QOL Goal Time Frame: 4-6 Weeks Goal Progress: Progressing Goal 6:: Patient to demonstrate 60% improvement with ADLS and function ( new goal) Goal Time Frame: 4-6 Weeks Goal Progress: Progressing Anticipated Interventions Anticipated Interventions Patient/Client Instruction: Educate patient on: Condition and Plan of Care For the Purpose of:: To increase ROM, To improve muscle performance and motor function, To improve ability to perform ADL's, To increase tolerance to activity/condition/position, To improve performance and independence with ADL's, To decrease level of supervision to perform tasks, To improve ability of physical actions for home/community/work/leisure, To improve health of tissue, To decrease soft tissue restriction, To improve endurance, To assume or resume ADL's and To improve tolerance to ADL's Therapeutic Exercise to Include: Strength training, Postural training, Flexibilty training and Dynamic Lumbar Stabilization Comment: JEFFY MAYERS For the Purpose of:: To improve muscle performance and motor function, To improve ability to perform ADL's, To increase tolerance to activity/condition/position, To improve performance and independence with ADL's, To improve ability of physical actions for home/community/work/leisure, To improve gait and locomotor functions, To decrease soft tissue restriction, To increase flexibility/ROM, To improve endurance, To improve balance, To improve safety with gait, To reduce risk of recurrence, To improve health and function and To improve tolerance to ADL's Re-Evaluation Ending Re-evaluation ending: Please do not hesitate to contact me at [phone] by phone or if you have questions or concerns regarding this new plan of care! Sincerely, Vivek Carter, PT, Cert MDT, OCS
--- NOTE | 2024-01-22 17:28 | HP.OTREVAL ---
Re-Evaluation Intro: Dr. Ap Rutherford MD, It has been my pleasure to treat LIBAN TRACEY over the last 28 visits for CVA. Please see the progress note below for an update on the occupational therapy plan of care! Subjective Subjective: arrives doing well no changes Objective Objective/Function: pt cont. to demo with left neglect- verbalizes no feeling of wt bearing to shoulder unless elbow supported in full ext. Plan Plan Frequency: 3x /Week Duration: 6 Weeks Visits in this POC: (Insurance- No limit- Med Cecilia) 6 weeks - 2 x week Plan: 2-3x a week for 4-6 weeks Goals Goals Patient Goals: Regain Mobility, Regain Strength, Decrease Swelling/Stiffness, Improve Fine Motor Skills, Use Hand/Wrist/Arm Normally Again, Increase ROM, Be More Independent in ADLS, Resume Former Household Responsibilities (Cooking,Cleaning,Yard, etc.) and Resume Hobbies Goal:: pt will increase L hand grasp strength by 15 pounds within 6 weeks 01/21 able to maintain grasp on dynomometer however does not achieve any weight at this time pt will increase L hand lateral pinch strength to 4 pounds or more within 6 weeks-- 0 pounds able to maintain grasp on pinch gauge pt will increase L hand tripod pinch strength to 4 pounds or more within 6 weeks--- 0 pounds however able to maintain grasp on pinch gauge Goal:: pt will improve shoulder flexion to 50-60 degrees for I in self care within 6 weeks now approx 15 degrees cues to assure no compensation with full body movement Goal:: pt will demonstrate the ability to place and return 9/9 pegs on 9 hole peg assessment within less than 1.5 min within 6 weeks forearm supported on table able to place one peg into board Goal:: pt will decrease L hand swelling to 18cm within 4 weeks L wrist 16.5 goal met Goal:: pt / caregiver will verbalize/ demonstrate 100% accuracy in LUE joint protection during sleep as well as day to day functional tasks by second session -- goal met pt wears brace at night and sleeps with arm protected Goal:: pt will demonstrate the ability to button 5/5 buttons of various size within 6 weeks --- able to button using R hand unable to with L hand at this time Goal:: pt will improve quick dash score by 30 or more joint within 6 weeks improved by 10 points ongoing Anticipated Interventions Anticipated Interventions Anticipated Interventions: A/AAROM/PROM, Strengthening, Edema Control, Triggerpoint Release, Modalities, Joint Protection/Energy Conservation, Fine Motor Coord/Yoandy, Neuro Reeducation, Sensory Stimulation, ADL Training and Home Program Re-Evaluation Ending Re-evaluation ending: Please do not hesitate to contact me at [phone] by phone or if you have questions or concerns regarding this new plan of care! Sincerely, Beulah Hatch
--- NOTE | 2024-02-23 11:21 | HP.PTREVAL_ITS ---
Re-Evaluation Intro: Dr. Ap Rutherford MD, It has been my pleasure to treat LIBAN TRACEY over the last 38 visits for HEMIPLEGIA AFFECTING LEFT SIDE. Please see the progress note below for an update on the physical therapy plan of care! Subjective Subjective: Fell today backwards trying wipe bathroom floor Getting of car easier , walking to dept mod I Objective Objective/Function: *Patient will continue to benefit from skilled PT due to needing less assistance with transfer although needs cues and assist and increased strength for function but improved with mod I with gait in home and walks to PT dept ,patient has fallen x2 walking backwards in bathroom thus need improved balance and education goals cont to be appropriate and updated* with gait progressing with gait with FWW SBA and progressed to cane with CGA endurance thus goals are appropriate * POSTURE: mild forward posture hips/knees flexed GAIT: reciprocal pattern with uneven step length forward posture slow henry improved henry and step length 340 ft mod I NEURO: denies paresthesia/tingling ,reflexes L3-4,L4-5,L5-S1 1/3 ,hypotonicity LLE BALANCE: fair with FWW TRANSFERS: sit-stand CGA/ with decrease left hand placement cues to and assist to maintain trunk forward BED MOBILITY: SUPERVSION PROM: BLE WFL MMT: quads/hams right 4-/5 ankle 4-5/ ,( peak force) left quads 33.3 ,hams 23.3 ,hip flexion 31.1 Plan Plan Plan: PT INTERVENTIONS GAIT TRAINING ,BALANCE TRAINING , TRANSFER TRAINING ,AEROBIC E'XS ,FUNCTIONAL STRENGTHENING BLE STRENGTHENING AND HEP Balance/Gait/Functional tests Balance/Special Test Scores Lower Extremity Functional Score: 25 Goals Goals Goal 1:: Patient to be I with HEP with daughter assist Goal Time Frame: 4-6 Weeks Goal Progress: Progressing Goal 2:: Patient to improve transfers consisted with supervision/mod I Goal Time Frame: 4-6 Weeks Goal Progress: Progressing Goal 3:: Patient to improve quality of gait 500 ft with mod I with fww ( new goal) Goal Time Frame: 4-6 Weeks Goal Progress: Progressing Goal 4:: Patient to improve peak force of quads/hams/hip by 5-10 points to improve function and gait ( NEW GOAL) Goal Time Frame: 4-6 Weeks Goal Progress: Progressing Goal 5:: Patient to improve LFES score by 5-10 points to improve function and QOL Goal Time Frame: 4-6 Weeks Goal Progress: Progressing Goal 6:: Patient to demonstrate 60% improvement with ADLS and function ( new goal) Goal Time Frame: 4-6 Weeks Goal Progress: Progressing Anticipated Interventions Anticipated Interventions Patient/Client Instruction: Educate patient on: Condition and Plan of Care For the Purpose of:: To increase ROM, To improve muscle performance and motor function, To improve ability to perform ADL's, To increase tolerance to activity/condition/position, To improve performance and independence with ADL's, To decrease level of supervision to perform tasks, To improve ability of physical actions for home/community/work/leisure, To improve health of tissue, To decrease soft tissue restriction, To improve endurance, To assume or resume ADL's and To improve tolerance to ADL's Therapeutic Exercise to Include: Strength training, Postural training, Flexibilty training and Dynamic Lumbar Stabilization Comment: JEFFY MAYERS For the Purpose of:: To improve muscle performance and motor function, To improve ability to perform ADL's, To increase tolerance to activity/condition/p osition, To improve performance and independence with ADL's, To improve ability of physical actions for home/community/work/leisure, To improve gait and locomotor functions, To decrease soft tissue restriction, To increase flexibility/ROM, To improve endurance, To improve balance, To improve safety with gait, To reduce risk of recurrence, To improve health and function and To improve tolerance to ADL's Re-Evaluation Ending Re-evaluation ending: Please do not hesitate to contact me at [phone] by phone or if you have questions or concerns regarding this new plan of care! Sincerely, Vivek Carter, PT, Cert MDT, OCS
--- NOTE | 2024-02-25 12:48 | HP.OTREVAL ---
Re-Evaluation Intro: Dr. Ap Rutherford MD, It has been my pleasure to treat LIBAN TRACEY over the last 38 visits for CVA. Please see the progress note below for an update on the occupational therapy plan of care! Subjective Subjective: pt doing well feeling tired this date after PT Objective Objective/Function: pt cont. to demo with left neglect- verbalizes no feeling of wt bearing to shoulder unless elbow supported in full ext. Plan Plan Frequency: 3x /Week Duration: 2 Weeks Visits in this POC: (Insurance- No limit- Med Cecilia) 6 weeks - 2 x week Plan: 2-3x a week plan for another week of therapy re assess for progress at that time Goals Goals Patient Goals: Regain Mobility, Regain Strength, Decrease Swelling/Stiffness, Improve Fine Motor Skills, Use Hand/Wrist/Arm Normally Again, Increase ROM, Be More Independent in ADLS, Resume Former Household Responsibilities (Cooking,Cleaning,Yard, etc.) and Resume Hobbies Goal:: pt will increase L hand grasp strength by 15 pounds within 6 weeks maintains grasp on dynomometer however still at L 0# R 20# pt will increase L hand lateral pinch strength to 4 pounds or more within 6 weeks-- 02/24 L hand 0# able to maintain grasp R hand 5# pt will increase L hand tripod pinch strength to 4 pounds or more within 6 weeks--- 02/24 L hand 0# and R hand 3# able to maintain grasp on tool Goal:: pt will improve shoulder flexion to 50-60 degrees for I in self care within 6 weeks 02/24: approx 15 degrees of shoulder flexion with arching of back Goal:: pt will demonstrate the ability to place and return 9/9 pegs on 9 hole peg assessment within less than 1.5 min within 6 weeks 02/24: pt is able to place x1 peg during session with extended time Goal:: pt will decrease L hand swelling to 18cm within 4 weeks L wrist 16.5 goal met Goal:: pt / caregiver will verbalize/ demonstrate 100% accuracy in LUE joint protection during sleep as well as day to day functional tasks by second session -- goal met pt wears brace at night and sleeps with arm protected Goal:: pt will demonstrate the ability to button 5/5 buttons of various size within 6 weeks --- able to button using R hand unable to with L hand at this time Goal:: pt will improve quick dash score by 30 or more joint within 6 weeks improved by 10 points ongoing Anticipated Interventions Anticipated Interventions Anticipated Interventions: A/AAROM/PROM, Strengthening, Edema Control, Triggerpoint Release, Modalities, Joint Protection/Energy Conservation, Fine Motor Coord/Yoandy, Neuro Reeducation, Sensory Stimulation, ADL Training and Home Program Re-Evaluation Ending Re-evaluation ending: Please do not hesitate to contact me at [phone] by phone or if you have questions or concerns regarding this new plan of care! Sincerely, Beulah Hatch
== END 2024-03-10 12:40 | disposition home or self-care (01) ==
LOC: OT 11:00
PROVIDERS: PCP Family Medicine; Referring Provider Family Medicine; Visit Provider Family Medicine
DX: I69.354 Hemiplegia and hemiparesis following cerebral infarction affecting left non-dominant side (principal)
CPT/HCPCS: 97032; 97110; 97112; 97116; 97140; 97163; 97165; 97530

== ENCOUNTER 2024-03-23 12:30 | Outpatient (RCR) | payer MEDICARE, SELFPAY ==
--- NOTE | 2024-03-18 12:17 | HP.OTDCSUM_ITS ---
Discharge Summary D/C Summary: It has been my pleasure to treat LIBAN TRACEY under orders from Dr. Ap Rutherford MD, for the diagnosis of CVA for a total of 47 visit(s). Please see the following information for a summary of their discharge status. 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 0# L shoulder subluxation palpated Goals Patient Goals: Regain Strength, Improve Fine Motor Skills, Use Hand/Wrist/Arm Normally Again, Increase ROM, Be More Independent in ADLS, Resume Former Household Responsibilities (Cooking,Cleaning,Yard, etc.) and Resume Hobbies Goal:: pt will increase L hand grasp strength by 15 pounds within 6 weeks maintains grasp on dynomometer however still at L 0# R 20# 03/18/24 2# NOT MET pt will increase L hand lateral pinch strength to 4 pounds or more within 6 weeks-- 02/24 L hand 0# able to maintain grasp R hand 5# 03/18/23: 0# NOT MET pt will increase L hand tripod pinch strength to 4 pounds or more within 6 weeks--- 02/24 L hand 0# and R hand 3# able to maintain grasp on tool 03/18/23: 0# NOT MET Goal:: pt will improve shoulder flexion to 50-60 degrees for I in self care within 6 weeks 02/24: approx 15 degrees of shoulder flexion with arching of back 03/18/24: 20 degrees NOT MET Goal:: pt will demonstrate the ability to place and return 9/9 pegs on 9 hole peg assessment within less than 1.5 min within 6 weeks 02/24: pt is able to place x1 peg during session with extended time 03/18/24 pt is able to place all 9 pegs this date assist at forearm fro stability and occ assist to brigh against plastic to turn peg for placement within 5 min NOT MET Goal:: pt will decrease L hand swelling to 18cm within 4 weeks L wrist 16.5 goal met Goal:: pt / caregiver will verbalize/ demonstrate 100% accuracy in LUE joint protection during sleep as well as day to day functional tasks by second session -- goal met pt wears brace at night and sleeps with arm protected Goal:: pt will demonstrate the ability to button 5/5 buttons of various size within 6 weeks --- able to button using R hand unable to with L hand at this time GOAL MET with use of R hand Goal:: pt will improve quick dash score by 30 or more joint within 6 weeks improved by 10 points ongoing 03/18/24: 52.27 NOT MET D/C Information d/c sentence: If there are questions or concerns regarding this patient's occupational therapy, please fell free to call me at [phone]. Thank you for the referral of this patient. Sincerely, Beulah Hatch
--- NOTE | 2024-03-18 12:18 | HP.OTDCNRP_ITS ---
Patient Information Patient Information: LIBAN TRACEY was seen in my office for initial evaluation on . The following Plan of Care was established for this patient: Last Seen Last Seen: This patient was last seen in our office 03/18/24. Pertinent comments regarding their Occupational therapy will appear below: this female seen for 47 visits discharge this date pt in agreement and plan if to move into [address] with possible carryover of therapy. Pt did demonstrate slight progress in ability to palce pegs in 9 hole peg as well as improvement of advisor to command in combat strength to 2 pounds. pt does not follow through with at home exercises resulting in slow progress. discharge at this time due to meeting max potential in outpatient setting. At this point I will be discontinuing this patient from occupational therapy. I would be happy to see this patient again in the future if found appropriate by the physician. Thank you! Beulah Hatch
--- NOTE | 2024-03-23 13:03 | HP.PTREVAL_ITS ---
Re-Evaluation Intro: Dr. Ap Rutherford MD, It has been my pleasure to treat LIBAN TRACEY over the last 47 visits for HEMIPLEGIA AFFECTING LEFT SIDE. Please see the progress note below for an update on the physical therapy plan of care! Subjective Subjective: Doing okay ,plan to move to [place] next month Bed mobility mod I Uses lift chair mod I Going to bathroom on own at home with transfers and getting up middle of night Objective Objective/Function: *Patient will continue to benefit from skilled PT due improving function but needing less assistance with transfer a needs cues and assist and shown increased strength for function and bed mobility mod I but improved with mod I with gait in home and no recent falls goals cont to be appropriate and updated* POSTURE: mild forward posture hips/knees flexed GAIT: reciprocal pattern with uneven step length forward posture slow henry improved henry and step length less draging left leg 340 ft mod I NEURO: denies paresthesia/tingling ,reflexes L3-4,L4-5,L5-S1 1/3 ,hypotonicity LLE BALANCE: fair with FWW TRANSFERS: sit-stand CGA/ with decrease left hand placement cues to and assist to maintain trunk forward BED MOBILITY: SUPERVSION PROM: BLE WFL MMT: quads/hams right 4-/5 ankle 4-5/ ,( peak force) left quads 33.3 ,hams 23.3 ,hip flexion 31.1 Plan Plan Plan: PT INTERVENTIONS GAIT TRAINING ,BALANCE TRAINING , TRANSFER TRAINING ,AEROBIC E'XS ,FUNCTIONAL STRENGTHENING BLE STRENGTHENING AND HEP Balance/Gait/Functional tests Balance/Special Test Scores CATSIB Score (Max score 120 seconds): 70 Lower Extremity Functional Score: 24 Goals Goals Goal 1:: Patient to be I with HEP with daughter assist Goal Time Frame: 4-6 Weeks Goal Progress: Progressing Goal 2:: Patient to improve transfers consisted with supervision/mod I Goal Time Frame: 4-6 Weeks Goal Progress: Progressing Goal 3:: Patient to improve quality of gait 500 ft with mod I with fww ( new goal) Goal Time Frame: 4-6 Weeks Goal Progress: Progressing Goal 4:: Patient to improve peak force of quads/hams/hip by 5-10 points to improve function and gait ( NEW GOAL) Goal Time Frame: 4-6 Weeks Goal Progress: Progressing Goal 5:: Patient to improve LFES score by 5-10# points to improve function and QOL Goal Time Frame: 4-6 Weeks Goal Progress: Progressing Goal 6:: Patient to demonstrate 60% improvement with ADLS and function ( new goal Goal Time Frame: 4-6 Weeks Goal Progress: Progressing Anticipated Interventions Anticipated Interventions Patient/Client Instruction: Educate patient on: Condition, Plan of Care and Risk Factors For the Purpose of:: To improve muscle performance and motor function, To improve ability to perform ADL's, To increase tolerance to activity/condition/position, To improve performance and independence with ADL's, To improve ability of physical actions for home/community/work/leisure, To improve gait and locomotor functions, To increase flexibility/ROM, To improve endurance, To improve balance, To improve safety with gait, To improve health and function and To improve tolerance to ADL's Therapeutic Exercise to Include: Strength training, Power training, Endurance training, Gait and locomotor training and Active ROM Comment: BLE For the Purpose of:: To improve muscle performance and motor function, To improve ability to perform ADL's, To increase tolerance to activity/condition/ position, To improve performance and independence with ADL's, To decrease level of supervision to perform tasks, To improve ability of physical actions for home/community/work/leisure, To improve gait and locomotor functions, To increase flexibility/ROM, To improve endurance, To improve balance and To assume or resume ADL's Re-Evaluation Ending Re-evaluation ending: Please do not hesitate to contact me at [phone] by phone or if you have questions or concerns regarding this new plan of care! Sincerely, Vivek Carter, PT, Cert MDT, OCS
== END 2024-03-23 19:00 | disposition home or self-care (01) ==
LOC: PT 12:30
PROVIDERS: PCP Family Medicine; Referring Provider Family Medicine; Visit Provider Family Medicine
DX: G81.94 Hemiplegia, unspecified affecting left nondominant side (principal)
CPT/HCPCS: 97110; 97112; 97530

== ENCOUNTER 2025-01-09 19:02 | Emergency (ER) | payer MEDICARE, MEDICAID, SELFPAY ==
[2025-01-09 19:06] VITALS: BP 126/75; PULSE 82; RESP 13; TEMP 36.9; O2SAT 100; BMI 30.4
--- NOTE | 2025-01-09 19:59 | EX.ED.DYSGE1 ---
HPI History of Present Illness Chief Complaint: Wound Informant: patient and family Onset/Context/Timing Onset: Today and Hours (Approximately 3 to 4 hours prior to arrival) Context: Sudden Onset Timing: Continuous Quality: Bleeding Location: Right inguinal area Worsened by: Nothing Relieved by: Nothing Narrative Narrative: Patient presents with bleeding from right inguinal procedure site. Patient had mitral valvuloplasty on 01/04/2025. Patient initially was having some bleeding after the procedure. Patient states this had resolved. Patient states that today it started bleeding again. Patient is on the Lovenox and Coumadin. Patient denies any trauma or injury. Patient denies any fevers or chills. Patient denies any redness or swelling. Patient states nothing makes the bleeding worse and nothing makes it better. Patient was supposed to have an appointment for follow-up check 2 days ago but she canceled this and rescheduled it for tomorrow. [facility] Medical History Anticoagulant long-term use Laceration of scalp Conjunctivitis, right eye Dizziness History of TIA (transient ischemic attack) (12/05/20) Secondary pulmonary arterial hypertension CVA (cerebral vascular accident) Osteoarthritis History of basal cell carcinoma History of rheumatic fever Home Medications ?Medication ?Instructions ?Recorded ?Last Taken ?Type multivitamin (Multiple Vitamins 1 tab PO DAILY SUPPLEMENT 08/14/23 01/26/24 History tablet) rosuvastatin 10 mg tablet 10 mg PO DAILY CHOLESTEROL #30 11/26/23 01/26/24 Rx tabs magnesium oxide 400 mg PO DAILY SUPPLEMENT 01/27/24 01/26/24 History warfarin 4 mg tablet [facility] 01/27/24 01/22/24 History warfarin 5 mg tablet 5 mg PO SUMOWEFRSA BLOOD THINNER 01/27/24 01/25/24 History zinc acetate 50 mg (zinc) capsule 50 mg PO DAILY PRN SUPPLEMENT 01/27/24 Unknown History cephalexin 500 mg capsule 500 mg PO BID #10 caps 01/29/24 Unknown Rx Allergy/AdvReac Type Severity Reaction Status Date / Time No Known Allergies Allergy Verified 01/09/25 19:09 Surgical History Status post balloon mitral valvuloplasty H/O arthroscopic knee surgery History of carpal tunnel release Social History household members: none housing: house Smoking Status: Never smoker alcohol intake: never substance use type: does not use ROS ROS ED Constitutional Constitutional ED: Denies chills or fever(s) Eyes Eyes: Denies blurry vision or change in vision ENT ENT ED: Reports rhinorrhea; Denies sore throat Cardiovascular Cardiovascular: Denies chest pain or palpitations Respiratory/Chest Respiratory/Chest: Denies cough or dyspnea Gastrointestinal Gastrointestinal: Denies nausea or vomiting Genitourinary Genitourinary ED: Reports urinary frequency; Denies dysuria or hematuria Musculoskeletal Musculoskeletal: Denies back pain or neck pain Integumentary Denies abscess or rash Neurologic Neurologic: Reports headache(s); Denies weakness Allergic/Immunologic Allergic/Immunologic ED: Denies mouth swelling or urticaria EXAM Physical Exam Const Vital Signs: 01/09/25 19:06 01/09/25 21:04 Temperature 98.4 F Temperature Source Oral Pulse Rate 82 74 Respiratory Rate 13 17 Blood Pressure 126/75 H 123/52 H Blood Pressure Mean 92 75 Pulse Ox 100 100 Oxygen Delivery Method Room Air Room Air Positive well nourished and well developed General Appearance ED: well developed and NAD HEENT Reports moist mucous membranes Neck supple and no JVD Resp normal respiratory effort and clear to auscultation bilaterally Cardio regular rate and regular rhythm GI non-tender and non-distended Palpation: soft Extremity normal to inspection General Extremety ED: Negative for edema or tenderness General Extremity: Negative for edema Neuro oriented x3, CN's II-XII intact bilaterally and no sensory deficits noted Sensorium / Orientation: alert Motor Exam: strength 5/5 throughout Psych mental status grossly normal Skin Skin Narrative: There is a puncture wound noted in the right inguinal area. There is mild oozing noted. There is no pulsatile bleeding noted. There is good femoral pulse palpated. MDM MDM MDM Narrative Medical decision making narrative: Differential diagnosis includes anemia, coagulopathy, electrolyte abnormality, and postoperative bleeding. CBC will be obtained to assess for leukocytosis and anemia. Basic metabolic profile will be obtained to assess for electrolyte abnormality renal function. PT with INR and PTT will be obtained to assess for coagulopathy. History & Record Review Additional record(s) reviewed:: Prior outpatient record and Prior labs Lab Data Attestation: I reviewed the patient's lab results. Lab results narrative: CBC was reviewed. Hemoglobin is stable at 12.0 and hematocrit was 36.4. PT with INR and PTT were reviewed. INR is 1.3 and pro time is 16.1. PTT was normal at 34.1. Basic metabolic profile was reviewed. BUN was slightly elevated at 27. The remainder was within normal limits. Labs: Laboratory Results - last 24 hr 01/09/25 20:43 WBC 8.2 RBC 3.82 L Hgb 12.0 Hct 36.4 L MCV 95.3 MCH 31.4 MCHC 33.0 RDW Std Deviation 47.5 H RDW Coeff of Alfredo 13.7 Plt Count 165 MPV 9.7 Immature Gran % (Auto) 0.200 Neut % (Auto) 61.9 Lymph % (Auto) 26.5 [place] % (Auto) 9.4 Eos % (Auto) 1.5 Baso % (Auto) 0.5 Absolute Neuts (auto) 5.1 Absolute Lymphs (auto) 2.16 Nucleated RBC % 0 PT 16.1 H INR 1.3 APTT 34.1 Sodium 143 Potassium 4.1 Chloride 104 Carbon Dioxide 27.4 Anion Gap 12 BUN 27 H Creatinine 1.07 Estim Creat Clear Calc 35.17 L Est GFR (MDRD) Non-Af 51 L BUN/Creatinine Ratio 25.0 H Glucose 94 Calcium 9.1 Treatment and Re-Evaluation :: Gelfoam dressing was applied. Pressure dressing was applied. Bleeding had stopped with Gelfoam and pressure dressing. Patient is safe to be discharged back to the extended care facility. Patient will be transferred there. Patient was instructed to follow-up with her surgeon tomorrow as scheduled. Patient and family understood and were agreeable with the plan. All questions were answered. Discharge Plan Triage Chief Complaint: Wound ED Provider: Ap Owen Dx/Rx/DC Orders Clinical Impression: Postoperative bleeding from incision, Severe mitral valve stenosis Instructions: ED Post Op Wound Check, Bleeding Prescriptions: No Action rosuvastatin 10 mg tablet 10 mg PO DAILY Qty: 30 5RF multivitamin [Multiple Vitamins] Tablet 1 tab PO DAILY warfarin 5 mg tablet 5 mg PO SUMOWEFRSA warfarin 4 mg tablet 4 mg PO TUTH magnesium oxide 400 mg magnesium tablet 400 mg PO DAILY zinc acetate 50 mg (zinc) capsule 50 mg PO DAILY PRN (Reason: SUPPLEMENT ) cephalexin 500 mg capsule 500 mg PO BID Qty: 10 0RF Primary Care Provider: Jose Daniel Cohen Referrals: Ap Rutherford MD [Med Staff - Multiple Knife Edge Trimmer Operator] - 5-7 Days Calderon Deng MD [Med Staff - Active Staff] - Keep [place] appointment Print Language: Czech Disposition Disposition: Home, Self Care
--- OUTSIDE RECORDS SUMMARY | 2025-01-09 20:03 | XMS RPT_ITS | CCD ---
Author Organization [facility] ion Partnership [facility] Care Team Providers Care Senior Investment Analyst Name Role Phone MITUL RUTHERFORD MD Primary Care Physician Dr. Mitul Rutherford Primary Care Provider Dr. Mitul Owen Emergency Provider Dr. Russ Rutherford Admit Provider UnavailDr. Russ Borrego Attending Provider Unavail able Dr. Russ Rutherford Other Provider Unavailezekiel e Dr. Uzair Alcantara Attending Provider [phone] Dr. Cindy Up Attending Provider Dr. Cindy Up Other Provider Unavailable Primary Care Provider UnavailCINDY Saldivar Referring Unavailable BRANDON BISHOP Attending Unavailable MELANIE BISHOPIMANT Admitting Unavailable PAWEL BRUCE Attending Unavailable PAWEL BRUCE Admitting Unavailable HERBERT LANGE Consulting Unavailable Dr. Mitul Owen Referring Provider Dr. Russ Rutherford Referring Provider Unavail able SRIKANTH Scott Attending Provider Dr. Princess Bowling Emergency Provider Dr. Mukul Franco Admit Provider Dr. Mukul Franco Attending Provider Dr. Mukul Franco Other Provider MD Jorge French Other Provider Unavailable Dr. Jamal Webster Other Provider MD Swati Lobo Other Provider Unavailable Dr. Kathi Alejo Other Provider Dr. Clemencia Summers Other Provider Dr. Devan Zepeda Other Provider [phone] Azucena Brantley Other Provider Dr. Buddy Arellano Other Provider Dr. Vivek Silverman Other Provider MD Yareli Munguia Other Provider [phone] Holger Wise Other Provider [phone] Rita Manzano Other Provider Dr. Glory Norris Other Provider [phone] Dia Burrows Other Provider Dr. Dale Steen Other Provider Dr. Natalee Sandra Other Provider Dr. Lorenzo Connelly Other Provider [phone] Nabila Crane Other Provider Unavailable MD Jose Casey Other Provider Unavailable Dr. Richard Mistry Attending Provider [phone] Dr. Richard Mistry Other Provider Mitul Rutherford A Primary Care Provider RUSS DELGADO Attending Unavailable RUTHERFORD, MITUL Primary Care Unavailable DIALLO KENNY MD, DR ZARATE Attending Mely RUTHERFORD MD, MITUL A Primary Care Unavailable Mukul Franco Admitting Unavailable Mukul Franco Attending Unavailable Krish, Mitul Primary Care Unavailable Jorge French Consulting Unavailable Jamal Webster Consulting Unavailable Swati Lobo Consulting Unavailable Kathi Alejo Consulting Unavailable Clemencia Summers Consulting Unavailable Devan Zepeda Consulting Unavailable Azucena Brantley Consulting Unavailable Buddy Arellano Consulting Unavailable Vivek Silverman Consulting Unavailable Yareli Munguia Consulting Unavailable Holger Wise Consulting Unavailable Rita Manzano Consulting Unavailable Glory Norris Consulting Unavailable Zaghlouleh, Mhd Olvin Consulting UnavailDale Carvajal Consulting Unavailable Sandra, Rami Consulting Unavailable Lorenzo Connelly Consulting Unavailable Nabila Crane Consulting Unavailable Jose Casey Consulting Unavailable Mukul Franco Consulting Unavailable Rutherford, Mitul Primary Care Unavailable Uzair Alcantara Attending UnavailRuss Borrego Referring Unavailable Valdo Izquierdo Referring Unavailable Rutherford, Mitul Primary Care Unavailable Dakota Marsh Attending Unavailable Rutherford, Mitul Primary Care Unavailable Russ Rutherfrod Attending Unavailable Russ Rutherford Consulting Unavailable Schwiger, Mitul Referring Unavailable Russ Rutherford Admitting Unavailable Russ Phelps Consulting Unavailable Russ Phelps Admitting Unavailable Rutherford, Mitul Primary Care Unavailable Mallory Lynn Attending Unavailable Valdo Izquierdo Attending Unavailable Valdo Izquierdo Referring Unavailable Rutherford, Mitul Primary Care Unavailable Rutherford, Mitul Primary Care Unavailable Rutherford, Mitul Referring Unavailable Rutherford, Mitul Attending Unavailable Valdo Izquierdo Referring Unavailable Rutherford, Mitul Primary Care Unavailable Valdo Izquierdo Attending Unavailable Rajinder Francoolas F Admitting Unavailable Salvador Mukul Shyam Attending Unavailable Jorge French Consulting Unavailable Rutherford, Mitul Primary Care Unavailable Jamal Webster Consulting Unavailable Swati Lobo Consulting Unavailable Kathi Alejo Consulting Unavailable Clemencia Summers Consulting Unavailable Devan Zepeda Consulting Unavailable Azucena Brantley Consulting Unavailable Buddy Arellano Consulting Unavailable Vivek Silverman Consulting Unavailable Yareli Munguia Consulting Unavailable Holger Wise Consulting Unavailable Rita Manzano Consulting Unavailable Glory Norris Consulting Unavailable Markos, john Olvin Consulting UnavailDale Carvajal Consulting Unavailable Boaz, Rami Consulting Unavailable Lorenzo Connelly Consulting Unavailable Nabila Crane Consulting Unavailable Jose Casey Consulting Unavailable Ara Francos Shyam Consulting Unavailable Cindy Up Attending Unavailable Cindy Up Consulting Unavailable Russ Phelps Consulting Unavailable Russ Phelps Admitting Unavailable Russ Phelps Attending Unavailable Rutherford, Mitul Primary Care Unavailable Valdo Izquierdo Attending Unavailable Rutherford, Mitul Referring Unavailable Rutherford, Mitul Primary Care Unavailable Valdo Izquierdo Attending Unavailable Rutherford, Mitul Primary Care Unavailable Rutherford, Mitul Referring Unavailable Tania Scott Attending Unavailable Richard Mistry Attending Unavailable Fede, Richard Consulting Unavailable Rutherford, Mitul Attending Unavailable Rutherford, Mitul Referring Unavailable Rutherford, Mitul Primary Care Unavailable Rutherford, Mitul Attending Unavailable Rutherford, Mitul Referring Unavailable Rutherford, Mitul Primary Care Unavailable Cindy Up Attending Unavailable Krish, Mitul Primary Care Unavailable Russ Rutherford Consulting Unavailable Russ Rutherford Admitting Unavailable Mukul Franco Admitting Unavailable Richard Mistry Attending Unavailable Jorge French Consulting Unavailable Rutherford, Mitul Primary Care Unavailable Adeli, Amir Consulting Unavailable Hindualberto, Swati Consulting Unavailable Melo, Kathi Consulting Unavailable Zha, Clemencia Consulting Unavailable Devan Zepeda Consulting Unavailable Azucena Brantley Consulting Unavailable Buddy Arellano Consulting Unavailable Vivek Silverman Consulting Unavailable Yareli Munguia Consulting Unavailable Holger Wise Consulting Unavailable Rita Manzano Consulting Unavailable Glory Norris Consulting Unavailable Dia Burrows Consulting UnavailDale Carvajal Consulting Unavailable Natalee Sandra Consulting Unavailable Lorenzo Connelly Consulting Unavailable Nabila Crane Consulting Unavailable Jose Casey Consulting Unavailable Mukul Franco Consulting Unavailable Mallory Lynn Attending Unavailable Mallory Lynn Consulting Unavailable Cindy Up Attending Unavailable Russ Rutherford Consulting Unavailable Krish, Mitul Primary Care Unavailable Russ Rutherford Admitting Unavailable Cindy Up Consulting Unavailable KRISH EDWARD, MITUL A Primary Care Unavailable EVIE GONZALES-DIANNE GRIFFITH Referring Unavail able DIALLO KENNY MD, DR ZARATE Admitting Unav navin KENNY MD, DR ZARATE Consulting Unav navin KNENY MD, DR ZARATE Attending Unav navin RUTHERFORD MD, MITUL A Primary Care Unavailable DIALLO KENNY MD, DR ZARATE Attending Unav navin RUTHERFORD MD, MITUL A Primary Care Unavailable JAIRON RG MD Attending Unavailable DIALLO KENNY MD, DR ZARATE Attending Unav navin POWELL MD, EDUAR U Referring Unavailable KRISH EDWARD, MITUL A Primary Care Unavailable KRISH EDWARD, MITUL A Primary Care Unavailable KRISH EDWARD, MITUL A Primary Care Unavailable NATALI FLYNN PA-C Attending Unavailable DIALLO KENNY MD, DR ZARATE Attending MITUL Hernandez MD A Primary Care Unavailable DIANNE PHILLIPS Attending Unavail tonie RUTHERFORD MD, MITUL A Primary Care Unavailable Medications Current Medications Medication Drug Class(es) Dates Sig (Normalized) Sig (Original) acetaminophen 325 mg oral capsule (1 source) Start: 04-08-2024 acetaminophen 325 mg oral capsule Dose : 325 mg = 1 cap(s), Oral, q4h, PRN as needed for fever, # 20 cap(s), 0 Refill(s) Start Date: 04/08/24 Status: Ordered aspirin 81 mg delayed release oral tablet (11 sources) Platelet Aggregation Inhibitor, Nonsteroidal Anti-inflammatory Drug Start: 01-24-2021 take 1 tablet by mouth once daily Aspirin (Adult Aspirin Regimen) 81 mg tablet,delayed release (DR/EC) Active 81 MG PO DAILY January 23, 2021 11:00pm Comment on above: 81 mg once daily. atorvastatin 20 mg oral tablet (7 sources) HMG-CoA Reductase Inhibitor Start: 04-08-2024 atorvastatin 20 mg oral tablet Dose : 20 mg = 1 tab(s), Oral, Daily, 0 Refill(s) Start Date: 04/08/24 Status: Ordered Start: 08-19-2023 take 80 mg by mouth at bedtime Atorvastatin Active 80 MG PO AT BEDTIME August 19, 2023 12:00am Start: 08-14-2023 End: 08-19-2023 take 40 mg by mouth once daily Atorvastatin Discontinu ed 40 MG PO DAILY August 14, 2023 12:00am August 19, 2023 1:25pm Start: 06-11-2023 take 1 tablet by shanna th once daily at bedtime atorvastatin (LIPITOR) 40 mg tablet 1 tablet by ORAL/FEEDING TUBE route daily at bedtime. 0 06/11/2023 Active Comment on above: 1 tablet by ORAL/FEE DING TUBE route daily at bedtime. clopidogrel 75 mg oral tablet (6 sources) P2Y12 Platelet Inhibitor Start: 4 End: take 75 mg by mouth once daily Clopidogrel Active 75 MG PO DAILY August 19, 2023 1:26pm Recommend to continue 90 days from 08/14/2023. Start: 06-12-2023 take 1 tablet by shanna th once daily clopidogrel (PLAVIX) 75 mg tablet 1 tablet by ORAL/FEEDING TUBE route once daily. 0 06/12/2023 Active Comment on above: 1 tablet by ORAL/FEE DING TUBE route once daily. furosemide 20 mg oral tablet (1 source) Loop Diuretic Start: 01-05-2025 Lasix 20 mg oral tablet Dose : 20 mg = 1 tab(s), Oral, Daily, # 30 tab(s), 5 Refill(s), [facility]acy: [facility] #[id number], 156.2, cm, 01/04/25 6:15:00 EDT, Height, kg, 01/04/25 6:15:00 EDT, Dosing Weight Start Date: 01/05/25 Status: Ordered Quantity: 30.0 Unit: tab(s) Repeat number: 6 ibuprofen 400 mg oral tablet (2 sources) Nonsteroidal Anti-inflammatory Drug Start: 09-06-2023 End: 09-06-2023 ibuprofen tablet 400 mg Start: 09-06-2023 End: 09-06-2023 ibuprofen tablet 400 mg lisinopril 5 mg oral tablet (2 sources) Angiotensin Converting Enzyme Inhibitor Start: 08-19-2023 take 5 mg by mouth once daily Lisinopril Active 5 MG PO DAILY August 19, 2023 12:00am 24 hr metoprolol succinate 25 mg extended release oral tablet (2 sources) beta-Adrenergic Igor Start: 01-05-2025 Toprol-XL 25 mg oral tablet, extended release Dose : 25 mg = 1 tab(s), Oral, qDayM, # 30 tab(s), 5 Refill(s), Pharmacy: [facility] #[id number], 156.2, cm, 01/04/25 6:15:00 EDT, Height, kg, 01/04/25 6:15:00 EDT, Dosing Weight Start Date: 01/05/25 Status: Ordered Quantity: 30.0 Unit: tab(s) Repeat number: 6 Start: 01-05-2025 End: 01-05-2025 take 1 tablet by mouth in the morning Toprol-XL Start: 01/05/25 10:35:00 AM EDT, Dose = 25 mg, = 1 tab(s), Oral, give with food/meal, 01/05/25 10:35:00 EDT Start Date: 01/05/25 Stop Date: 01/05/25 Status: Completed Repeat number: 1 Multivitamin (Multiple Vitamins) tablet (3 sources) Start: 08-14-2023 take 1 tablet by mouth once daily Multivitamin (Multiple Vitamins) tablet Active 1 TABLET PO DAILY August 14, 2023 12:00am Multivitamin preparation (3 sources) Start: 10-07-2024 take 1 tablet by mouth once daily Multivitamin Dose = 1 tab(s), Oral, Daily, 0 Refill(s) Start Date: 10/07/24 Status: Ordered Repeat number: 1 rosuvastatin calcium 10 mg oral tablet (1 source) HMG-CoA Reductase Inhibitor Start: 12-26-2023 rosuvastatin 10 mg oral tablet Dose : 10 mg = 1 tab(s), Oral, qDay, 0 Refill(s) Start Date: 12/26/23 Status: Ordered sertraline 50 mg oral tablet (2 sources) Serotonin Reuptake Inhibitor Start: 08-19-2023 take 50 mg by mouth once daily Sertraline Active 50 MG PO DAILY 0 August 19, 2023 12:00am Vitamin C 500 mg oral tablet (4 sources) Start: 04-08-2024 Vitamin C 500 mg oral tablet Dose : 500 mg = 1 tab(s), Oral, qDay, # 30 tab(s), 0 Refill(s) Start Date: 04/08/24 Status: Ordered Quantity: 30.0 Unit: tab(s) Repeat number: 1 Start: 04-08-2024 Vitamin C 500 mg oral tablet Dose : 500 mg = 1 tab(s), Oral, qDay, # 30 tab(s), 0 Refill(s) Start Date: 04/08/24 Status: Ordered warfarin sodium 5 mg oral tablet (5 sources) Vitamin K Antagonist Start: 01-02-2024 warfarin 5 mg oral tablet Dose : 5 mg = 1 tab(s), Oral, Daily, # 30 tab(s), 0 Refill(s), [facility]acy: [facility] #[id number], 155, cm, 01/01/24 10:34:00 EDT, Height, kg, 01/01/24 10:34:00 EDT, Dosing Weight Start Date: 01/02/24 Status: Ordered Quantity: 30.0 Unit: tab(s) Repeat number: 1 Completed/Discontinued Medications Medication Drug Class(es) Dates Sig (Normalized) Sig (Original) ascorbic acid 500 mg oral tablet (1 source) Vitamin C take 1 tablet by mouth once daily ascorbic acid, vitamin C, (VITAMIN C) 500 mg tablet Take 500 mg by mouth once daily. 0 Active Comment on above: Take 500 mg by mouth once daily. 0.8 ml enoxaparin sodium 100 mg/ml prefilled syringe (1 source) Low Molecular Weight Heparin Start: 01-05-2025 End: 01-12-2025 Lovenox 80 mg/0.8 mL injectable solution Dose : 70 mg = 0.7 mL, Subcutaneous, q12h, until INR 2-3, X 7 day(s), # 9.8 mL, 0 Refill(s), 01/12/25 10:42:00 AM EDT, Pharmacy: [facility] #[id number], 156.2, cm, 01/04/25 6:15:00 EDT, Height, kg, 01/04/25 6:15:00 EDT, Dosing Weight Start Date: 01/05/25 Stop Date: 01/12/25 Status: Ordered Quantity: 9.8 Unit: mL Repeat number: 1 fluconazole 150 mg oral tablet (2 sources) Azole Antifungal Start: 09-06-2023 End: 09-06-2023 fluconazole (Diflucan) tablet 150 mg magnesium oxide 250 mg oral tablet (4 sources) Start: 04-08-2024 End: 04-14-2024 Magnesium 250 mg tablet Dose : 500 mg = 2 tab(s), Oral, qDay, # 14 tab(s), 0 Refill(s) Start Date: 04/08/24 Stop Date: 04/14/24 Status: Ordered Quantity: 14.0 Unit: tab(s) Repeat number: 1 mv-min/iron/folic/c alcium/vitK (WOMEN'S MULTIVITAMIN ORAL) (1 source) take 1 tablet by mouth once daily mv-min/iron/folic/ calcium/vitK (WOMEN'S MULTIVITAMIN ORAL) Take 1 tablet by mouth once daily. 0 Active Comment on above: Take 1 tablet by shanna once daily. 50 ml sodium chloride 9 mg/ml injection (2 sources) Start: 09-06-2023 End: 09-06-2023 sodium chloride 0.9 % bolus 500 mL tobramycin 3 mg/ml ophthalmic solution (3 sources) Aminoglycoside Antibacterial Start: 07-29-2023 End: 08-14-2023 Tobramycin Discontinued 1 DRP OPHTHALMIC Q2H 5 July 29, 2023 12:00am August 14, 2023 9:22am to right eye while awake for 5 days triamcinolone acetonide 0.001 mg/mg topical ointment (1 source) Corticosteroid Start: 04-25-2023 triamcinolone acetonide (KENALOG) 0.1 % ointment APPLY TO THE AFFECTED AREA(S) AT BEDTIME UNTIL GONE AND USE TWICE DAILY in THE future klaudia 0 04/25/2023 Active Comment on above: APPLY TO THE AFFECTE D AREA(S) AT BEDTIME UNTIL GONE AND USE TWICE DAILY in THE future klaudia Problems Active Problems Problem Classification Problem Date Documented Date Episodic/Chronic Acute cerebrovascular disease (20 sources) Cerebrovascular accident; Translations: [Cerebral infarction, unspecified] Onset: 06-07-2023 03-15-2021 Chronic Acute cerebrovascular disease (4 sources) Acute cerebrovascular disease 05-05-2024 Cardiac dysrhythmias (6 sources) Atrial fibrillation; Translations: [Unspecified atrial fibrillation] Onset: 12-01-2024 01-01-2024 Chronic Coronary atherosclerosis and other heart disease (1 source) Coronary atherosclerosis; Translations: [Atherosclerotic heart disease of [place] coronary artery without angina pectoris] Onset: 12-01-2024 Chronic Disorders of lipid metabolism (1 source) Mixed hyperlipidemia; Translations: [Mixed hyperlipidemia] Onset: 06-08-2023 06-08-2023 Chronic Fluid and electrolyte disorders (8 sources) Dehydration; Translations: [Dehydration] Onset: 09-06-2023 09-06-2023 Episodic Heart valve disorders (20 sources) Rheumatic mitral stenosis; 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] Onset: 06-09-2023 03-13-2021 Chronic Inflammation; infection of eye (except that caused by tuberculosis or sexually transmitteddisease) (6 sources) Conjunctivitis of right eye; Translations: [Unspecified conjunctivitis] 07-29-2023 Episodic Malaise and fatigue (14 sources) Muscle weakness; Translations: [Weakness] Onset: 09-06-2023 08-14-2023 Episodic Mycoses (6 sources) Candidiasis of vagina; Translations: [Yeast vaginitis] Onset: 09-06-2023 09-06-2023 Episodic Osteoarthritis (1 source) Osteoarthritis; Translations: [Unspecified osteoarthritis, unspecified site] Onset: 12-01-2024 Chronic Other and ill-defined cerebrovascular disease (1 source) Ataxia; 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] Onset: 06-08-2023 06-08-2023 Chronic Other circulatory disease (8 sources) History of transient ischemic attack; Translations: [Personal history of transient ischemic attack (TIA), and cerebral infarction without residual deficits] Onset: 12-05-2020 01-24-2021 Episodic Other circulatory disease (10 sources) History of cerebrovascular accident; Translations: [Personal history of transient ischemic attack (TIA), and cerebral infarction without residual deficits] Onset: 06-08-2023 03-13-2021 Episodic Other circulatory disease (7 sources) Personal history of transient ischemic attack (TIA), and cerebral infarction without residual deficits; Translations: [Personal history of transient ischemic attack (TIA), and cerebral infarction without residual deficits] Onset: 12-05-2020 06-07-2023 Episodic Other connective tissue disease (3 sources) Weakness of face muscles; Translations: [Facial weakness] 08-14-2023 Episodic Other nervous system disorders (5 sources) Unable to walk; Translations: [Difficulty in walking, not elsewhere classified] 06-06-2023 Chronic Other nervous system disorders (9 sources) Difficulty in walking, not elsewhere classified; Translations: [Difficulty in walking] Onset: 06-10-2023 06-07-2023 Chronic Other nervous system disorders (1 source) Cerebral edema; Translations: [Cerebral edema] Onset: 06-08-2023 06-09-2023 Chronic Other nutritional; endocrine; and metabolic disorders (1 source) Obesity; Translations: [Obesity, unspecified] Onset: 06-08-2023 06-08-2023 Chronic Other nutritional; endocrine; and metabolic disorders (1 source) Hypophosphatemia; Translations: [Other disorders of phosphorus metabolism] Onset: 06-09-2023 06-09-2023 Chronic Alysa-; endo-; and myocarditis; cardiomyopathy (except that caused by tuberculosis or sexually transmitted disease) (5 sources) Heart valve disorder; Translations: [Endocarditis] 05-05-2024 Chronic Pulmonary heart disease (12 sources) Pulmonary arterial hypertension; Translations: [Secondary pulmonary arterial hypertension] Onset: 06-10-2023 01-23-2021 Chronic Residual codes; unclassified (1 source) Past history of procedure; Translations: [Other specified postprocedural states] Onset: 01-05-2025 Episodic Residual codes; unclassified (1 source) Other specified postprocedural states; Translations: [Other specified postprocedural states] Onset: 01-04-2025 Episodic Transient cerebral ischemia (5 sources) Transient cerebral ischemia 12-26-2023 Chronic Unclassified (9 sources) Basal cell carcinoma Onset: 12-01-2024 03-13-2021 Unclassified (1 source) Acute candidiasis of vulva and vagina; Translations: [Acute candidiasis of vulva and vagina] Onset: 09-06-2023 Unclassified (1 source) History of mitral valvuloplasty 01-05-2025 Urinary tract infections (6 sources) Acute urinary tract infection; Translations: [Urinary tract infection, site not specified] 08-14-2023 Episodic Past or Other Problems Problem Classification Problem Date Documented Da te Episodic/Chronic Conditions associated with dizziness or vertigo (12 sources) Dizziness; Translations: [Dizziness and giddiness] Onset: 06-10-2023 06-06-2023 Episodic Open wounds of head; neck; and trunk (1 source) Laceration without foreign body of scalp, initial encounter; Translations: [Laceration without foreign body of scalp, initial encounter] Onset: 01-29-2024 Episodic Other connective tissue disease (4 sources) Facial weakness; Translations: [Facial weakness] Onset: 11-25-2023 08-14-2023 Episodic Other screening for suspected conditions (not mental disorders or infectious disease) (2 sources) Abnormal coagulation profile; Translations: [Abnormal coagulation profile] Onset: 01-29-2024 Episodic Superficial injury; contusion (1 source) Contusion of left wrist, initial encounter; Translations: [Contusion of left wrist, initial encounter] Onset: 10-04-2023 Episodic Unclassified (1 source) Acute candidiasis of vulva and vagina; Translations: [Acute candidiasis of vulva and vagina] Onset: 09-06-2023 Results Test Name Value Interpretation Reference Range Facility .Auto Diffon 01-05-2025 Basophil, Absolute 0.0 10 3/mcL Normal 0.0-0.3 [facility] Comment on above: Performed By: #### A ARI MEZA #### [address] [address] Basophils/100 WBC (Bld) 0.4 % Normal 0.0-2.5 [facility] Comment on above: Performed By: #### A GENO MEZAGEL #### [address] [address] Eosinophil, Absolute 0.1 10 3/mcL Normal 0.0-0.7 [facility] Comment on above: Performed By: #### A ARI MEZA #### [address] [address] Eosinophils/100 WBC (Bld) 1.7 % Normal 0.0-6.0 [facility] Comment on above: Performed By: #### A ARI MEZA #### [address] [address] Lymphocyte, Absolute 1.8 10 3/mcL Normal 0.9-4.3 [facility] Comment on above: Performed By: #### A ARI MEZA #### [address] [address] Lymphocytes/100 WBC (Bld) 24.8 % Normal 20.0-40.0 [facility] Comment on above: Performed By: #### A GENO MEZAGEL #### [address] [address] Monocyte, Absolute 0.7 10 3/mcL Normal 0.1-1.4 [facility] Comment on above: Performed By: #### A BSGENO MCKNIGHTGEL #### [address] [address] Monocytes/100 WBC (Bld) 9.0 % Normal 2.0-13.0 [facility] Comment on above: Performed By: #### A DERRICK ABOGEL #### [address] [address] Neutrophils/100 WBC (Bld) 64.1 % Normal 50.0-75.0 [facility] Comment on above: Performed By: #### A ARI MEZA #### [address] [address] .GFRon 01-05-2025 Estimated Glomerular Filtration Rate 58 ml/min/1.73sqm Normal [facility] Comment on above: Result Comment: Stages of Chronic Kidney Disease (CKD) Stage Description eGFR(ml/min/1.73 sq.m.) CKD 1 Normal kidney function or >=90 normal kindney function with possible kidney damage (ex. Proteinuria) CKD 2 Kidney damage with mild loss 60-89 of kidney function CKD 3a Mild to moderate loss of kidney 45-59 function CKD 3b Moderate to severe loss of 30-44 of kindey function CKD 4 Severe loss of kidney function 15-29 CKD 5 Kidney failure <15 Note: (go live 2024) the eGFR calculation was updated to the 2020 CKD-EPI creatinine equation without a race factor to calculate the eGFR results. Performed By: #### A ARI MEZA #### [place] [address] .NEUABSon 01-05-2025 Neutrophil, Absolute 4.7 10 3/mcL Normal 2.3-8.1 [facility] Comment on above: Performed By: #### A ARI MEZA #### [place] [address] BMPon 01-05-2025 BUN/Creatinine Ratio 22.9 ratio High 10.0-22.0 [facility] Comment on above: Performed By: #### A ARI MEZA #### [address] [address] Calcium [Mass/Vol] 8.6 mg/dL Low 8.7-10.4 [facility] Comment on above: Performed By: #### A ARI MEZA #### [address] [address] Chloride [Moles/Vol] 107 mmol/L Normal 98-110 [facility] Comment on above: Performed By: #### A ARI MEZA #### [place] [address] CO2 [Moles/Vol] 29 mmol/L Normal 22-32 [facility] Comment on above: Performed By: #### A ARI MEZA #### [address] [address] Creatinine [Mass/Vol] 0.96 mg/dL Normal 0.50-1.[address] [facility] Comment on above: Result Comment: Test ing performed on [employer] analyzer using enzymatic creatinine methodology. Performed By: #### A ARI MEZA #### [address] [address] Electrolyte Balance 7.0 mEq/L Normal 4.0-15.0 [facility] Comment on above: Performed By: #### A ARI MEZA #### [place] [id number] Glucose [Mass/Vol] 98 mg/dL Normal 82-115 [facility] MAIN Comment on above: Performed By: #### A ARI MEZA #### [place] [id number] Potassium [Moles/Vol] 4.2 mmol/L Normal 3.5-5.[address] [facility] MAIN Comment on above: Performed By: #### A ARI MEZA #### [place] [address] Sodium [Moles/Vol] 143 mmol/L Normal 136-145 [facility] MAIN Comment on above: Performed By: #### A ARI MEZA #### [place] [id number] Urea nitrogen [Mass/Vol] 22.0 mg/dL Normal 8.0-22.0 [facility] MAIN Comment on above: Performed By: #### A ARI MEZA #### [address] [address] CBCon 01-05-2025 Erythrocyte distribution width (RBC) [Ratio] 14.1 % Normal 11.5-15.5 [facility] Comment on above: Performed By: #### A ARI MEZA #### [place] [id number] Hematocrit (Bld) [Volume fraction] 35.1 % Normal 34.0-46.0 [facility] Comment on above: Performed By: #### A ARI MEZA #### [place] [address] Hgb 11.7 G/dL Low 12.0-16.0 [facility] Comment on above: Performed By: #### A ARI MEZA #### [place] [address] MCH (RBC) [Entitic mass] 31.1 pg Normal 27.0-33.0 [facility] Comment on above: Performed By: #### A ARI MEZA #### [place] [address] MCHC 33.4 G/dL Normal 32.0-36.0 [facility] Comment on above: Performed By: #### A ARI MEZA #### [place] [address] MCV (RBC) [Entitic vol] 93.1 fL Normal 80.0-99.0 [facility] MAIN Comment on above: Performed By: #### A ARI MEZA #### [place] [address] Platelet 197 10 3/mcL Normal 150-450 [facility] Comment on above: Performed By: #### A ARI MEZA #### [place] [address] Platelet mean volume (Bld) [Entitic vol] 8.1 fL Normal 6.6-10.5 [facility] Comment on above: Performed By: #### A ARI MEZA #### [place] [id number] RBC 3.77 10 6/mcL Low 4.10-5.30 [facility] Comment on above: Performed By: #### A ARI MEZA #### [place] [address] WBC 7.3 10 3/mcL Normal 4.5-10.8 [facility] Comment on above: Performed By: #### A BSGEL, ABOGEL #### [place] [address] LABORATORYOrdered By: SYSTEM SYSTEM on 01-05-2025 Basophils (Bld) [#/Vol] 0.0 103/mcL Normal 0.0 - 0.3 10^3/mcL AH Workflow SS Basophils/100 WBC (Bld) 0.4 % Normal 0.0 - 2.5 % AH Workflow SS Calcium [Mass/Vol] 8.6 mg/dL Low 8.7 - 10. 4 mg/dL AH ADM SS Chloride [Moles/Vol] 107 mmol/L Normal 98 - 11 0 mEq/L AH ADM SS CO2 [Moles/Vol] 29 mmol/L Normal 22 - 32 mEq/L AH ADM SS Creatinine [Mass/Vol] 0.96 mg/dL Normal 0.50 - 1.20 mg/dL AH ADM SS Comment on above: Interpretive Data: T esting performed on [employer] analyzer using enzymatic creatinine methodology. Electrolyte Balance 7.0 mEq/L Normal 4.0 - 15 .0 mEq/L AH ADM SS Eosinophils (Bld) [#/Vol] 0.1 103/mcL Normal 0.0 - 0.7 10^3/mcL AH Workflow SS Eosinophils/100 WBC (Bld) 1.7 % Normal 0.0 - 6.0 % AH Workflow SS Erythrocyte distribution width (RBC) [Ratio] 14.1 % Normal 11.5 - 15.5 % AH Workflow SS Estimated Glomerular Filtration Rate 58 ml/min/1.73sqm Invalid Interpretation Code AH ADM SS Comment on above: Interpretive Data: Stages of Chronic Kidney Disease (CKD) Stage Description eGFR(ml/min/1.73 sq.m.) CKD 1 Normal kidney function or >=90 normal kindney function with possible kidney damage (ex. Proteinuria) CKD 2 Kidney damage with mild loss 60-89 of kidney function CKD 3a Mild to moderate loss of kidney 45-59 function CKD 3b Moderate to severe loss of 30-44 of kindey function CKD 4 Severe loss of kidney function 15-29 CKD 5 Kidney failure <15 Note: (go live 2024) the eGFR calculation was updated to the 2020 CKD-EPI creatinine equation without a race factor to calculate the eGFR results. Glucose [Mass/Vol] 98 mg/dL Normal 82 - 115 mg/dL ADM SS Hematocrit (Bld) [Volume fraction] 35.1 % Normal 34.0 - 46.0 % Workflow SS Hemoglobin (Bld) [Mass/Vol] 11.7 G/dL Low 12.0 - 16.0 G/dL AH Workflow SS Lymphocytes (Bld) [#/Vol] 1.8 103/mcL Normal 0.9 - 4.3 10^3/mcL Workflow SS Lymphocytes/100 WBC (Bld) 24.8 % Normal 20.0 - 40.0 % Workflow SS MCH (RBC) [Entitic mass] 31.1 pg Normal 27.0 - 33.0 pg Workflow SS MCHC 33.4 G/dL Normal 32.0 - 36.0 G/dL Workflow SS MCV (RBC) [Entitic vol] 93.1 fL Normal 80.0 - 99.0 fL Workflow SS Monocytes (Bld) [#/Vol] 0.7 103/mcL Normal 0.1 - 1.4 10^3/mcL Workflow SS Monocytes/100 WBC (Bld) 9.0 % Normal 2.0 - 13.0 % Workflow SS Neutrophils (Bld) [#/Vol] 4.7 103/mcL Normal 2.3 - 8.1 10^3/mcL Workflow SS Neutrophils/100 WBC (Bld) 64.1 % Normal 50.0 - 75.0 % Workflow SS Platelet mean volume (Bld) [Entitic vol] 8.1 fL Normal 6.6 - 10.5 fL Workflow SS Platelets (Bld) [#/Vol] 197 103/mcL Normal 150 - 450 10^3/mcL Workflow SS Potassium [Moles/Vol] 4.2 mmol/L Normal 3.5 - 5.0 mEq/L ADM SS PT Coag (PPP) [Time] 13.1 s Normal 9.0 - 1 4.4 seconds [facility] SS Comment on above: Interpretive Data: E ffective 02/09/08, Protime results may be affected by some antibiotics (i.e. Ciprofloxacin, Azithromycin, Bactrim) which may potentiate the action of oral anticoagulants, with further increases in Protime/INR. PT International Ratio 1.1 ratio Invalid Interpretation Code [facility] Comment on above: Interpretive Data: T brenda [employer] (CHEST, 1992, 102:312S-25S) recommended therapeutic range for oral anticoagulant therapy is: LOW RISK: Prophylaxis of venous thrombosis INR: 2.0-3.0 Treatment of pulmonary embolism 2.0-3.0 Prevention of systemic embolism 2.0-3.0 HIGH RISK: Mechanical prosthetic valves 2.5-3.5 RBC (Bld) [#/Vol] 3.77 106/mcL Low 4.10 - 5.3 0 10^6/mcL AH Workflow SS Sodium [Moles/Vol] 143 mmol/L Normal 136 - 145 mEq/L AH ADM SS Urea nitrogen [Mass/Vol] 22.0 mg/dL Normal 8.0 - 22.0 mg/dL AH ADM SS Urea nitrogen/Creatinine [Mass ratio] 22.9 ratio High 10.0 - 22.0 ratio AH ADM SS WBC (Bld) [#/Vol] 7.3 103/mcL Normal 4.5 - 10.8 10^3/mcL AH Workflow SS PROon 01-05-2025 INR Coag (PPP) [Relative time] 1.1 {INR} Normal [facility] MA[facility] Comment on above: Result Comment: [employer] (CHEST, 1992, 102:312S-25S) recommended therapeutic range for oral anticoagulant therapy is: LOW RISK: Prophylaxis of venous thrombosis INR: 2.0-3.0 Treatment of pulmonary embolism 2.0-3.0 Prevention of systemic embolism 2.0-3.0 HIGH RISK: Mechanical prosthetic valves 2.5-3.5 Performed By: #### A ARI MEZA #### [place] [address] PT Coag (PPP) [Time] 13.1 s Normal 9.0-14.4 [facility] MAIN Comment on above: Result Comment: Effe ctive 02/09/08, Protime results may be affected by some antibiotics (i.e. Ciprofloxacin, Azithromycin, Bactrim) which may potentiate the action of oral anticoagulants, with further increases in Protime/INR. Performed By: #### A ARI MEZA #### [address] [address] .Auto Diffon 01-04-2025 Basophil, Absolute 0.1 10 3/mcL Normal 0.0-0.3 [facility] MAIN Comment on above: Performed By: #### A LISSETT, GFR, ADIFF, CBC, BMP ####[address] [address] Basophils/100 WBC (Bld) 0.7 % Normal 0.0-2.5 [facility] MAIN Comment on above: Performed By: #### A LISSETT, GFR, ADIFF, CBC, BMP ####[address] [address] Eosinophil, Absolute 0.1 10 3/mcL Normal 0.0-0.7 [facility] MAIN Comment on above: Performed By: #### A LISSETT, GFR, ADIFF, CBC, BMP ####[address] [address] Eosinophils/100 WBC (Bld) 1.6 % Normal 0.0-6.0 [facility] Comment on above: Performed By: #### A LISSETT, GFR, ADIFF, CBC, BMP ####[address] [address] Lymphocyte, Absolute 2.6 10 3/mcL Normal 0.9-4.3 [facility] MAIN Comment on above: Performed By: #### A LISSETT, GFR, ADIFF, CBC, BMP ####[address] [address] Lymphocytes/100 WBC (Bld) 32.6 % Normal 20.0-40.0 [facility] Comment on above: Performed By: #### A LISSETT, GFR, ADIFF, CBC, BMP ####[address] [address] Monocyte, Absolute 0.3 10 3/mcL Normal 0.1-1.4 [facility] MAIN Comment on above: Performed By: #### A LISSETT, GFR, ADIFF, CBC, BMP ####[address] [address] Monocytes/100 WBC (Bld) 3.8 % Normal 2.0-13.0 [facility] MAIN Comment on above: Performed By: #### A LISSETT, GFR, ADIFF, CBC, BMP ####[address] [address] Neutrophils/100 WBC (Bld) 61.3 % Normal 50.0-75.0 [facility] Comment on above: Performed By: #### A LISSETT, GFR, ADIFF, CBC, BMP ####[address] [address] .GFRon 01-04-2025 Estimated Glomerular Filtration Rate 70 ml/min/1.73sqm Normal [facility] Comment on above: Result Comment: Stages of Chronic Kidney Disease (CKD) Stage Description eGFR(ml/min/1.73 sq.m.) CKD 1 Normal kidney function or >=90 normal kindney function with possible kidney damage (ex. Proteinuria) CKD 2 Kidney damage with mild loss 60-89 of kidney function CKD 3a Mild to moderate loss of kidney 45-59 function CKD 3b Moderate to severe loss of 30-44 of kindey function CKD 4 Severe loss of kidney function 15-29 CKD 5 Kidney failure <15 Note: (go live 2024) the eGFR calculation was updated to the 2020 CKD-EPI creatinine equation without a race factor to calculate the eGFR results. Performed By: #### A LISSETT, GFR, ADIFF, CBC, BMP ####[address] [address] .NEUABSon 01-04-2025 Neutrophil, Absolute 4.8 10 3/mcL Normal 2.3-8.1 [facility] MAIN Comment on above: Performed By: #### A LISSETT, GFR, ADIFF, CBC, BMP ####[address] [address] ABO/Rh (Gel)on 01-04-2025 ABO/Rh Interp Positive Invalid Interpretation Code [facility] Comment on above: Performed By: #### A BSGEL, ABOGEL #### [address] [address] ABS (Gel)on 01-04-2025 ABSC Interp (Gel) Negative Normal [facility] MA[facility] Comment on above: Performed By: #### A BSGEL, ABOGEL #### [address] [address] BMPon 01-04-2025 BUN/Creatinine Ratio 26.8 ratio High 10.0-22.0 [facility] MAIN Comment on above: Order Comment: withi n 1/2 hour of admission to CVSICU Performed By: #### A LISSETT, GFR, ADIFF, CBC, BMP ####[address] [address] Calcium [Mass/Vol] 9.1 mg/dL Normal 8.7-10.4 [facility] MAIN Comment on above: Order Comment: withi n 1/2 hour of admission to [facility]SICU Performed By: #### A LISSETT, GFR, ADIFF, CBC, BMP ####[address] [address] Chloride [Moles/Vol] 106 mmol/L Normal 98-110 [facility] MAIN Comment on above: Order Comment: withi n 1/2 hour of admission to CVSICU Performed By: #### A LISSETT, GFR, ADIFF, CBC, BMP ####[place] [id number] CO2 [Moles/Vol] 28 mmol/L Normal 22-32 [facility] MA[facility] Comment on above: Order Comment: withi n 1/2 hour of admission to CVSICU Performed By: #### A LISSETT, GFR, ADIFF, CBC, BMP ####[place] [address] Creatinine [Mass/Vol] 0.82 mg/dL Normal 0.50-1.[address] [facility] MAIN Comment on above: Order Comment: withi n 1/2 hour of admission to [facility]SICU Result Comment: Test ing performed on [employer] analyzer using enzymatic creatinine methodology. Performed By: #### A LISSETT, GFR, ADIFF, CBC, BMP ####[address] [address] Electrolyte Balance 8.0 mEq/L Normal 4.0-15.0 [facility] MAIN Comment on above: Order Comment: withi n 1/2 hour of admission to CVSICU Performed By: #### A LISSETT, GFR, ADIFF, CBC, BMP ####[place] [address] Glucose [Mass/Vol] 105 mg/dL Normal 82-115 [facility] MAIN Comment on above: Order Comment: withi n 1/2 hour of admission to [facility]SICU Performed By: #### A LISSETT, GFR, ADIFF, CBC, BMP ####[address] [address] Potassium [Moles/Vol] 3.8 mmol/L Normal 3.5-5.[address] [facility] MAIN Comment on above: Order Comment: withi n 1/2 hour of admission to [facility]ICU Performed By: #### A LISSETT, GFR, ADIFF, CBC, BMP ####[place] [address] Sodium [Moles/Vol] 142 mmol/L Normal 136-145 [facility] MAIN Comment on above: Order Comment: withi n 1/2 hour of admission to [facility]ICU Performed By: #### A LISSETT, GFR, ADIFF, CBC, BMP ####[place] [address] Urea nitrogen [Mass/Vol] 22.0 mg/dL Normal 8.0-22.0 [facility] Comment on above: Order Comment: withi n 1/2 hour of admission to [facility] Performed By: #### A LISSETT, GFR, ADIFF, CBC, BMP ####[place] [address] CBCon 01-04-2025 Erythrocyte distribution width (RBC) [Ratio] 14.2 % Normal 11.5-15.5 [facility] Comment on above: Order Comment: withi n 1/2 hour of admission to [facility]SICU Performed By: #### A ARI MEZA #### [place] [address] Hematocrit (Bld) [Volume fraction] 36.2 % Normal 34.0-46.0 [facility] Comment on above: Order Comment: withi n 1/2 hour of admission to [facility]ICU Performed By: #### A ARI MEZA #### [place] [address] Hgb 12.1 G/dL Normal 12.0-16.0 [facility] Comment on above: Order Comment: withi n 1/2 hour of admission to [facility]ICU Performed By: #### A BSGENO MCKNIGHTGEL #### [place] [address] MCH (RBC) [Entitic mass] 31.0 pg Normal 27.0-33.0 [facility] Comment on above: Order Comment: withi n 1/2 hour of admission to [facility]ICU Performed By: #### A BSGENO MCKNIGHTGEL #### [place] [address] MCHC 33.5 G/dL Normal 32.0-36.0 [facility] Comment on above: Order Comment: withi n 1/2 hour of admission to [facility]ICU Performed By: #### A BSGENO MCKNIGHTGEL #### [place] [address] MCV (RBC) [Entitic vol] 92.6 fL Normal 80.0-99.0 [facility] MAIN Comment on above: Order Comment: withi n 1/2 hour of admission to [facility]SICU Performed By: #### A BSGENO MCKNIGHTGEL #### [place] [address] Platelet 215 10 3/mcL Normal 150-450 [facility] Comment on above: Order Comment: withi n 1/2 hour of admission to [facility]ICU Performed By: #### A BSGENO MCKNIGHTGEL #### [place] [address] Platelet mean volume (Bld) [Entitic vol] 8.3 fL Normal 6.6-10.5 [facility] Comment on above: Order Comment: withi n 1/2 hour of admission to [facility]ICU Performed By: #### A BSROXANNA ABOGEL #### [place] [address] RBC 3.92 10 6/mcL Low 4.10-5.30 [facility] Comment on above: Order Comment: withi n 1/2 hour of admission to [facility]ICU Performed By: #### A BSROXANNA ABOGEL #### [place] [address] WBC 7.8 10 3/mcL Normal 4.5-10.8 [facility] Comment on above: Order Comment: withi n 1/2 hour of admission to [facility] Performed By: #### A ARI MEZA #### [facility] [address] [place] [address] LABORATORYOrdered By: SYSTEM SYSTEM on 01-04-2025 Basophils (Bld) [#/Vol] 0.1 103/mcL Normal 0.0 - 0.3 10^3/mcL AH Workflow SS Basophils/100 WBC (Bld) 0.7 % Normal 0.0 - 2.5 % AH Workflow SS Calcium [Mass/Vol] 9.1 mg/dL Normal 8.7 - 10. 4 mg/dL AH ADM SS Chloride [Moles/Vol] 106 mmol/L Normal 98 - 11 0 mEq/L AH ADM SS CO2 [Moles/Vol] 28 mmol/L Normal 22 - 32 mEq/L AH ADM SS Creatinine [Mass/Vol] 0.82 mg/dL Normal 0.50 - 1.20 mg/dL AH ADM SS Comment on above: Interpretive Data: T esting performed on [employer] analyzer using enzymatic creatinine methodology. Electrolyte Balance 8.0 mEq/L Normal 4.0 - 15 .0 mEq/L AH ADM SS Eosinophils (Bld) [#/Vol] 0.1 103/mcL Normal 0.0 - 0.7 10^3/mcL AH Workflow SS Eosinophils/100 WBC (Bld) 1.6 % Normal 0.0 - 6.0 % AH Workflow SS Erythrocyte distribution width (RBC) [Ratio] 14.2 % Normal 11.5 - 15.5 % AH Workflow SS Estimated Glomerular Filtration Rate 70 ml/min/1.73sqm Invalid Interpretation Code AH ADM SS Comment on above: Interpretive Data: Stages of Chronic Kidney Disease (CKD) Stage Description eGFR(ml/min/1.73 sq.m.) CKD 1 Normal kidney function or >=90 normal kindney function with possible kidney damage (ex. Proteinuria) CKD 2 Kidney damage with mild loss 60-89 of kidney function CKD 3a Mild to moderate loss of kidney 45-59 function CKD 3b Moderate to severe loss of 30-44 of kindey function CKD 4 Severe loss of kidney function 15-29 CKD 5 Kidney failure <15 Note: (go live 2024) the eGFR calculation was updated to the 2020 CKD-EPI creatinine equation without a race factor to calculate the eGFR results. Glucose [Mass/Vol] 105 mg/dL Normal 82 - 115 mg/dL AH ADM SS Hematocrit (Bld) [Volume fraction] 36.2 % Normal 34.0 - 46.0 % AH Workflow SS Hemoglobin (Bld) [Mass/Vol] 12.1 G/dL Normal 12.0 - 16.0 G/dL AH Workflow SS Lymphocytes (Bld) [#/Vol] 2.6 103/mcL Normal 0.9 - 4.3 10^3/mcL AH Workflow SS Lymphocytes/100 WBC (Bld) 32.6 % Normal 20.0 - 40.0 % AH Workflow SS MCH (RBC) [Entitic mass] 31.0 pg Normal 27.0 - 33.0 pg AH Workflow SS MCHC 33.5 G/dL Normal 32.0 - 36.0 G/dL AH Workflow SS MCV (RBC) [Entitic vol] 92.6 fL Normal 80.0 - 99.0 fL AH Workflow SS Monocytes (Bld) [#/Vol] 0.3 103/mcL Normal 0.1 - 1.4 10^3/mcL AH Workflow SS Monocytes/100 WBC (Bld) 3.8 % Normal 2.0 - 13.0 % AH Workflow SS Neutrophils (Bld) [#/Vol] 4.8 103/mcL Normal 2.3 - 8.1 10^3/mcL AH Workflow SS Neutrophils/100 WBC (Bld) 61.3 % Normal 50.0 - 75.0 % AH Workflow SS Platelet mean volume (Bld) [Entitic vol] 8.3 fL Normal 6.6 - 10.5 fL AH Workflow SS Platelets (Bld) [#/Vol] 215 103/mcL Normal 150 - 450 10^3/mcL AH Workflow SS Potassium [Moles/Vol] 3.8 mmol/L Normal 3.5 - 5.0 mEq/L AH ADM SS RBC (Bld) [#/Vol] 3.92 106/mcL Low 4.10 - 5.3 0 10^6/mcL AH Workflow SS Sodium [Moles/Vol] 142 mmol/L Normal 136 - 145 mEq/L AH ADM SS Urea nitrogen [Mass/Vol] 22.0 mg/dL Normal 8.0 - 22.0 mg/dL ADM SS Urea nitrogen/Creatinine [Mass ratio] 26.8 ratio High 10.0 - 22.0 ratio AH ADM SS WBC (Bld) [#/Vol] 7.8 103/mcL Normal 4.5 - 10.8 10^3/mcL Workflow SS PT Coag (PPP) [Time] 12.9 s Normal 9.0 - 1 4.4 seconds AH [facility] SS Comment on above: Interpretive Data: E ffective 02/09/08, Protime results may be affected by some antibiotics (i.e. Ciprofloxacin, Azithromycin, Bactrim) which may potentiate the action of oral anticoagulants, with further increases in Protime/INR. PT International Ratio 1.1 ratio Invalid Interpretation Code [facility] SS Comment on above: Interpretive Data: Cheng gutierrez [employer] (CHEST, 1991, 102:312S-25S) recommended therapeutic range for oral anticoagulant therapy is: LOW RISK: Prophylaxis of venous thrombosis INR: 2.0-3.0 Treatment of pulmonary embolism 2.0-3.0 Prevention of systemic embolism 2.0-3.0 HIGH RISK: Mechanical prosthetic valves 2.5-3.5 LABORATORYOrdered By: Onel Conklin on 01-04-2025 ABO and Rh group Nom (Bld) Blood group O Rh(D) positive Invalid Interpretation Code BB Auto SS Blood group antibody screen Ql Negative ABSC (01/04/25 6:08 AM) Normal BB Auto SS PROon 01-04-2025 INR Coag (PPP) [Relative time] 1.1 {INR} Normal [facility] MA[facility] Comment on above: Result Comment: [employer] (CHEST, 1991, 102:312S-25S) recommended therapeutic range for oral anticoagulant therapy is: LOW RISK: Prophylaxis of venous thrombosis INR: 2.0-3.0 Treatment of pulmonary embolism 2.0-3.0 Prevention of systemic embolism 2.0-3.0 HIGH RISK: Mechanical prosthetic valves 2.5-3.5 Performed By: #### P RO #### [facility] [address] [place] [id number] PT Coag (PPP) [Time] 12.9 s Normal 9.0-14.4 [facility] MAIN Comment on above: Result Comment: Effe ctive 02/09/08, Protime results may be affected by some antibiotics (i.e. Ciprofloxacin, Azithromycin, Bactrim) which may potentiate the action of oral anticoagulants, with further increases in Protime/INR. Performed By: #### P RO #### [address] [address] .GFRon 12-01-2024 Estimated Glomerular Filtration Rate 71 ml/min/1.73sqm Normal [facility] Comment on above: Result Comment: Stages of Chronic Kidney Disease (CKD) Stage Description eGFR(ml/min/1.73 sq.m.) CKD 1 Normal kidney function or >=90 normal kindney function with possible kidney damage (ex. Proteinuria) CKD 2 Kidney damage with mild loss 60-89 of kidney function CKD 3a Mild to moderate loss of kidney 45-59 function CKD 3b Moderate to severe loss of 30-44 of kindey function CKD 4 Severe loss of kidney function 15-29 CKD 5 Kidney failure <15 Note: (go live 2024) the eGFR calculation was updated to the 2020 CKD-EPI creatinine equation without a race factor to calculate the eGFR results. Performed By: #### B MP, GFR #### [address] [address] BMPon 12-01-2024 BUN/Creatinine Ratio 23.5 ratio High 10.0-22.0 [facility] MAIN Comment on above: Performed By: #### B MP, GFR #### [address] [address] Calcium [Mass/Vol] 9.8 mg/dL Normal 8.7-10.4 [facility] MAIN Comment on above: Performed By: #### B MP, GFR #### [address] [address] Chloride [Moles/Vol] 105 mmol/L Normal 98-110 [facility] Comment on above: Performed By: #### B MP, GFR #### [address] [address] CO2 [Moles/Vol] 32 mmol/L Normal 22-32 [facility] Comment on above: Performed By: #### B MP, GFR #### [address] [address] Creatinine [Mass/Vol] 0.81 mg/dL Normal 0.50-1.[address] [facility] MAIN Comment on above: Result Comment: Test ing performed on [employer] analyzer using enzymatic creatinine methodology. Performed By: #### B MP, GFR #### [address] [address] Electrolyte Balance 7.0 mEq/L Normal 4.0-15.0 [facility]IN Comment on above: Performed By: #### B MP, GFR #### [address] [address] Glucose [Mass/Vol] 87 mg/dL Normal 82-115 [facility] Comment on above: Performed By: #### B MP, GFR #### [place] [address] Potassium [Moles/Vol] 3.8 mmol/L Normal 3.5-5.[address] [facility] Comment on above: Performed By: #### B MP, GFR #### [place] [address] Sodium [Moles/Vol] 144 mmol/L Normal 136-145 [facility] Comment on above: Performed By: #### B MP, GFR #### [place] [id number] Urea nitrogen [Mass/Vol] 19.0 mg/dL Normal 8.0-22.0 [facility] Comment on above: Performed By: #### B MP, GFR #### [address] [address] LABORATORYOrdered By: SYSTEM SYSTEM on 12-01-2024 Calcium [Mass/Vol] 9.8 mg/dL Normal 8.7 - 10. 4 mg/dL ADM SS Chloride [Moles/Vol] 105 mmol/L Normal 98 - 11 0 mEq/L AH ADM SS CO2 [Moles/Vol] 32 mmol/L Normal 22 - 32 mEq/L ADM SS Creatinine [Mass/Vol] 0.81 mg/dL Normal 0.50 - 1.20 mg/dL ADM SS Comment on above: Interpretive Data: T esting performed on [employer] analyzer using enzymatic creatinine methodology. Electrolyte Balance 7.0 mEq/L Normal 4.0 - 15 .0 mEq/L ADM SS Estimated Glomerular Filtration Rate 71 ml/min/1.73sqm Invalid Interpretation Code Chemistry S Comment on above: Interpretive Data: Stages of Chronic Kidney Disease (CKD) Stage Description eGFR(ml/min/1.73 sq.m.) CKD 1 Normal kidney function or >=90 normal kindney function with possible kidney damage (ex. Proteinuria) CKD 2 Kidney damage with mild loss 60-89 of kidney function CKD 3a Mild to moderate loss of kidney 45-59 function CKD 3b Moderate to severe loss of 30-44 of kindey function CKD 4 Severe loss of kidney function 15-29 CKD 5 Kidney failure <15 Note: (go live 2024) the eGFR calculation was updated to the 2020 CKD-EPI creatinine equation without a race factor to calculate the eGFR results. Glucose [Mass/Vol] 87 mg/dL Normal 82 - 115 mg/dL ADM SS Potassium [Moles/Vol] 3.8 mmol/L Normal 3.5 - 5.0 mEq/L ADM SS PT Coag (PPP) [Time] 13.6 s Normal 9.0 - 1 4.4 seconds [facility] Comment on above: Interpretive Data: E ffective 02/09/08, Protime results may be affected by some antibiotics (i.e. Ciprofloxacin, Azithromycin, Bactrim) which may potentiate the action of oral anticoagulants, with further increases in Protime/INR. PT International Ratio 1.2 ratio Invalid Interpretation Code [facility] Comment on above: Interpretive Data: Cheng gutierrez [employer] (CHEST, 1992, 102:312S-25S) recommended therapeutic range for oral anticoagulant therapy is: LOW RISK: Prophylaxis of venous thrombosis INR: 2.0-3.0 Treatment of pulmonary embolism 2.0-3.0 Prevention of systemic embolism 2.0-3.0 HIGH RISK: Mechanical prosthetic valves 2.5-3.5 Sodium [Moles/Vol] 144 mmol/L Normal 136 - 145 mEq/L ADM SS Urea nitrogen [Mass/Vol] 19.0 mg/dL Normal 8.0 - 22.0 mg/dL ADM SS Urea nitrogen/Creatinine [Mass ratio] 23.5 ratio High 10.0 - 22.0 ratio ADM SS PROon 12-01-2024 INR Coag (PPP) [Relative time] 1.2 {INR} Normal [facility] Comment on above: Result Comment: [employer] (CHEST, 1991, 102:312S-25S) recommended therapeutic range for oral anticoagulant therapy is: LOW RISK: Prophylaxis of venous thrombosis INR: 2.0-3.0 Treatment of pulmonary embolism 2.0-3.0 Prevention of systemic embolism 2.0-3.0 HIGH RISK: Mechanical prosthetic valves 2.5-3.5 Performed By: #### P RO #### [place] [address] PT Coag (PPP) [Time] 13.6 s Normal 9.0-14.4 [facility] Comment on above: Result Comment: Effe ctive 02/09/08, Protime results may be affected by some antibiotics (i.e. Ciprofloxacin, Azithromycin, Bactrim) which may potentiate the action of oral anticoagulants, with further increases in Protime/INR. Performed By: #### P RO #### [place] [address] .Auto Diffon 11-29-2024 Basophil, Absolute 0.0 10 3/mcL Normal 0.0-0.3 [facility] Comment on above: Performed By: #### G FR, ANEU, PRO, CBC, ADIFF, BMP #### [address] [address] Basophils/100 WBC (Bld) 0.6 % Normal 0.0-2.5 [facility] Comment on above: Performed By: #### G FR, ANEU, PRO, CBC, ADIFF, BMP #### [address] [address] Eosinophil, Absolute 0.2 10 3/mcL Normal 0.0-0.[address] [facility] Comment on above: Performed By: #### G FR, ANEU, PRO, CBC, ADIFF, BMP #### [address] [address] Eosinophils/100 WBC (Bld) 2.0 % Normal 0.0-6.0 [facility] Comment on above: Performed By: #### G FR, ANEU, PRO, CBC, ADIFF, BMP #### [address] [address] Lymphocyte, Absolute 2.3 10 3/mcL Normal 0.9-4.[address] [facility] Comment on above: Performed By: #### G FR, ANEU, PRO, CBC, ADIFF, BMP #### [address] [address] Lymphocytes/100 WBC (Bld) 29.0 % Normal 20.0-40.0 [facility] Comment on above: Performed By: #### G FR, ANEU, PRO, CBC, ADIFF, BMP #### [address] [address] Monocyte, Absolute 0.6 10 3/mcL Normal 0.1-1.4 [facility] Comment on above: Performed By: #### G FR, ANEU, PRO, CBC, ADIFF, BMP #### [address] [address] Monocytes/100 WBC (Bld) 7.2 % Normal 2.0-13.0 [facility] Comment on above: Performed By: #### G FR, ANEU, PRO, CBC, ADIFF, BMP #### [address] [address] Neutrophils/100 WBC (Bld) 61.2 % Normal 50.0-75.0 [facility] Comment on above: Performed By: #### G FR, ANEU, PRO, CBC, ADIFF, BMP #### [address] [address] .GFRon 11-29-2024 Estimated Glomerular Filtration Rate 55 ml/min/1.73sqm Normal [facility] Comment on above: Result Comment: Stages of Chronic Kidney Disease (CKD) Stage Description eGFR(ml/min/1.73 sq.m.) CKD 1 Normal kidney function or >=90 normal kindney function with possible kidney damage (ex. Proteinuria) CKD 2 Kidney damage with mild loss 60-89 of kidney function CKD 3a Mild to moderate loss of kidney 45-59 function CKD 3b Moderate to severe loss of 30-44 of kindey function CKD 4 Severe loss of kidney function 15-29 CKD 5 Kidney failure <15 Note: (go live 2024) the eGFR calculation was updated to the 2020 CKD-EPI creatinine equation without a race factor to calculate the eGFR results. Performed By: #### G FR, ANEU, PRO, CBC, ADIFF, BMP #### [address] [address] .NEUABSon 11-29-2024 Neutrophil, Absolute 4.9 10 3/mcL Normal 2.3-8.[address] [facility] Comment on above: Performed By: #### G FR, ANEU, PRO, CBC, ADIFF, BMP #### [address] [address] BMPon 11-29-2024 BUN/Creatinine Ratio 28 ratio High 7-27 [facility] Comment on above: Performed By: #### G FR, ANEU, PRO, CBC, ADIFF, BMP #### [address] [address] Calcium [Mass/Vol] 8.9 mg/dL Normal 8.4-10.2 [facility] Comment on above: Performed By: #### G FR, ANEU, PRO, CBC, ADIFF, BMP #### [address] [address] Chloride [Moles/Vol] 106 mmol/L Normal 98-107 [facility] Comment on above: Performed By: #### G FR, ANEU, PRO, CBC, ADIFF, BMP #### [address] [address] CO2 [Moles/Vol] 32 mmol/L High 23-31 [facility] Comment on above: Performed By: #### G FR, ANEU, PRO, CBC, ADIFF, BMP #### [address] [address] Creatinine [Mass/Vol] 1.01 mg/dL High 0.51-0.95 [facility] Comment on above: Performed By: #### G FR, ANEU, PRO, CBC, ADIFF, BMP #### [address] [address] Electrolyte Balance 5.0 mEq/L Normal 4.0-15.0 [facility] Comment on above: Performed By: #### G FR, ANEU, PRO, CBC, ADIFF, BMP #### [address] [address] Glucose [Mass/Vol] 95 mg/dL Normal 83-110 [facility] Comment on above: Performed By: #### G FR, ANEU, PRO, CBC, ADIFF, BMP #### [address] [address] Potassium [Moles/Vol] 4.3 mmol/L Normal 3.5-5.1 [facility] Comment on above: Performed By: #### G FR, ANEU, PRO, CBC, ADIFF, BMP #### [place] [id number] Sodium [Moles/Vol] 143 mmol/L Normal 136-145 [facility] Comment on above: Performed By: #### G FR, ANEU, PRO, CBC, ADIFF, BMP #### [place] [address] Urea nitrogen [Mass/Vol] 28 mg/dL High 7-18 [facility] Comment on above: Performed By: #### G FR, ANEU, PRO, CBC, ADIFF, BMP #### [place] [id number] CBCon 11-29-2024 Erythrocyte distribution width (RBC) [Ratio] 14.4 % Normal 11.5-15.5 [facility] Comment on above: Performed By: #### G FR, ANEU, PRO, CBC, ADIFF, BMP #### [place] [address] Hematocrit (Bld) [Volume fraction] 40.1 % Normal 34.0-46.0 [facility] Comment on above: Performed By: #### G FR, ANEU, PRO, CBC, ADIFF, BMP #### [address] [address] Hgb 13.4 G/dL Normal 12.0-16.0 [facility] Comment on above: Performed By: #### G FR, ANEU, PRO, CBC, ADIFF, BMP #### [address] [address] MCH (RBC) [Entitic mass] 31.0 pg Normal 27.0-33.0 [facility] Comment on above: Performed By: #### G FR, ANEU, PRO, CBC, ADIFF, BMP #### [address] [address] MCHC 33.5 G/dL Normal 32.0-36.0 [facility] Comment on above: Performed By: #### G FR, ANEU, PRO, CBC, ADIFF, BMP #### [address] [address] MCV (RBC) [Entitic vol] 92.6 fL Normal 80.0-99.0 [facility] Comment on above: Performed By: #### G FR, ANEU, PRO, CBC, ADIFF, BMP #### [address] [address] Platelet 327 10 3/mcL Normal 150-450 [facility] Comment on above: Performed By: #### G FR, ANEU, PRO, CBC, ADIFF, BMP #### [address] [address] Platelet mean volume (Bld) [Entitic vol] 8.7 fL Normal 6.6-10.5 [facility] Comment on above: Performed By: #### G FR, ANEU, PRO, CBC, ADIFF, BMP #### [address] [address] RBC 4.33 10 6/mcL Normal 4.10-5.30 [facility] Comment on above: Performed By: #### G FR, ANEU, PRO, CBC, ADIFF, BMP #### [address] [address] WBC 8.0 10 3/mcL Normal 4.5-10.8 [facility] Comment on above: Performed By: #### G FR, ANEU, PRO, CBC, ADIFF, BMP #### [facility] [address] [place], [place] [address] LABORATORYOrdered By: SYSTEM SYSTEM on 11-29-2024 Basophils (Bld) [#/Vol] 0.0 103/mcL Normal 0.0 - 0.3 10^3/mcL AO Workflow SS Basophils/100 WBC (Bld) 0.6 % Normal 0.0 - 2.5 % AO Workflow SS Calcium [Mass/Vol] 8.9 mg/dL Normal 8.4 - 10. 2 mg/dL AO ADM SS Chloride [Moles/Vol] 106 mmol/L Normal 98 - 10 7 mmol/L AO ADM SS CO2 [Moles/Vol] 32 mmol/L High 23 - 31 mmol/L AO ADM SS Creatinine [Mass/Vol] 1.01 mg/dL High 0.51 - 0.95 mg/dL AO ADM SS Electrolyte Balance 5.0 mEq/L Normal 4.0 - 15 .0 mEq/L AO ADM SS Eosinophil, Absolute 0.2 103/mcL Normal 0.0 - 0 .7 10^3/mcL AO Workflow SS Eosinophils/100 WBC (Bld) 2.0 % Normal 0.0 - 6.0 % AO Workflow SS Erythrocyte distribution width (RBC) [Ratio] 14.4 % Normal 11.5 - 15.5 % AO Workflow SS Estimated Glomerular Filtration Rate 55 ml/min/1.73sqm Invalid Interpretation Code AO Chemistry S Comment on above: Interpretive Data: Stages of Chronic Kidney Disease (CKD) Stage Description eGFR(ml/min/1.73 sq.m.) CKD 1 Normal kidney function or >=90 normal kindney function with possible kidney damage (ex. Proteinuria) CKD 2 Kidney damage with mild loss 60-89 of kidney function CKD 3a Mild to moderate loss of kidney 45-59 function CKD 3b Moderate to severe loss of 30-44 of kindey function CKD 4 Severe loss of kidney function 15-29 CKD 5 Kidney failure <15 Note: (go live 2024) the eGFR calculation was updated to the 2020 CKD-EPI creatinine equation without a race factor to calculate the eGFR results. Glucose [Mass/Vol] 95 mg/dL Normal 83 - 110 mg/dL AO ADM SS Hematocrit (Bld) [Volume fraction] 40.1 % Normal 34.0 - 46.0 % AO Workflow SS Hemoglobin (Bld) [Mass/Vol] 13.4 G/dL Normal 12.0 - 16.0 G/dL AO Workflow SS INR Coag (PPP) [Relative time] 1.4 {INR} Invalid Interpretation Code AO [facility] SS Comment on above: Interpretive Data: Cheng gutierrez [employer] (CHEST, 1991, 102:312S-25S) recommended therapeutic range for oral anticoagulant therapy is: LOW RISK: Prophylaxis of venous thrombosis INR: 2.0-3.0 Treatment of pulmonary embolism 2.0-3.0 Prevention of systemic embolism 2.0-3.0 HIGH RISK: Mechanical prosthetic valves 2.5-3.5 Lymphocytes (Bld) [#/Vol] 2.3 103/mcL Normal 0.9 - 4.3 10^3/mcL AO Workflow SS Lymphocytes/100 WBC (Bld) 29.0 % Normal 20.0 - 40.0 % AO Workflow SS MCH (RBC) [Entitic mass] 31.0 pg Normal 27.0 - 33.0 pg AO Workflow SS MCHC 33.5 G/dL Normal 32.0 - 36.0 G/dL AO Workflow SS MCV (RBC) [Entitic vol] 92.6 fL Normal 80.0 - 99.0 fL AO Workflow SS Monocytes (Bld) [#/Vol] 0.6 103/mcL Normal 0.1 - 1.4 10^3/mcL AO Workflow SS Monocytes/100 WBC (Bld) 7.2 % Normal 2.0 - 13.0 % AO Workflow SS Neutrophils (Bld) [#/Vol] 4.9 103/mcL Normal 2.3 - 8.1 10^3/mcL AO Workflow SS Neutrophils/100 WBC (Bld) 61.2 % Normal 50.0 - 75.0 % AO Workflow SS Platelet mean volume (Bld) [Entitic vol] 8.7 fL Normal 6.6 - 10.5 fL AO Workflow SS Platelets (Bld) [#/Vol] 327 103/mcL Normal 150 - 450 10^3/mcL AO Workflow SS Potassium [Moles/Vol] 4.3 mmol/L Normal 3.5 - 5.1 mmol/L AO ADM SS PT Coag (PPP) [Time] 15.6 s High 9.0 - 1 4.4 seconds AO [facility] SS RBC (Bld) [#/Vol] 4.33 106/mcL Normal 4.10 - 5.3 0 10^6/mcL AO Workflow SS Sodium [Moles/Vol] 143 mmol/L Normal 136 - 145 mmol/L AO ADM SS Urea nitrogen [Mass/Vol] 28 mg/dL High 7 - 18 mg/dL AO ADM SS Urea nitrogen/Creatinine [Mass ratio] 28 ratio High 7 - 27 ratio AO ADM SS WBC (Bld) [#/Vol] 8.0 103/mcL Normal 4.5 - 10.8 10^3/mcL AO Workflow SS PROon 11-29-2024 PT Coag (PPP) [Time] 15.6 s High 9.0-14.4 [facility] Comment on above: Performed By: #### G FR, ANEU, PRO, CBC, ADIFF, BMP #### [address] [address] PT International Ratio 1.[address] [facility] Comment on above: Result Comment: [employer] (CHEST, 1992, 102:312S-25S) recommended therapeutic range for oral anticoagulant therapy is: LOW RISK: Prophylaxis of venous thrombosis INR: 2.0-3.0 Treatment of pulmonary embolism 2.0-3.0 Prevention of systemic embolism 2.0-3.0 HIGH RISK: Mechanical prosthetic valves 2.5-3.5 Performed By: #### G FR, ANEU, PRO, CBC, ADIFF, BMP #### [place] [id number] [place], [place] [address] .Auto Diffon 07-08-2024 Basophil, Absolute 0.1 10 3/mcL Normal 0.0-0.3 [facility] Comment on above: Performed By: #### B MP, GFR, ADIFF, ANEU, CBC, PRO #### [facility] [address] [place] [address] Basophils/100 WBC (Bld) 0.6 % Normal 0.0-2.5 [facility] Comment on above: Performed By: #### B MP, GFR, ADIFF, ANEU, CBC, PRO #### [address] [address] Eosinophil, Absolute 0.1 10 3/mcL Normal 0.0-0.7 [facility] Comment on above: Performed By: #### B MP, GFR, ADIFF, ANEU, CBC, PRO #### [address] [address] Eosinophils/100 WBC (Bld) 1.1 % Normal 0.0-6.0 [facility] Comment on above: Performed By: #### B MP, GFR, ADIFF, ANEU, CBC, PRO #### [address] [address] Lymphocyte, Absolute 1.8 10 3/mcL Normal 0.9-4.3 [facility] Comment on above: Performed By: #### B MP, GFR, ADIFF, ANEU, CBC, PRO #### [address] [address] Lymphocytes/100 WBC (Bld) 20.0 % Normal 20.0-40.0 [facility] Comment on above: Performed By: #### B MP, GFR, ADIFF, ANEU, CBC, PRO #### [address] [address] Monocyte, Absolute 0.6 10 3/mcL Normal 0.1-1.4 [facility] Comment on above: Performed By: #### B MP, GFR, ADIFF, ANEU, CBC, PRO #### [address] [address] Monocytes/100 WBC (Bld) 6.5 % Normal 2.0-13.0 [facility] Comment on above: Performed By: #### B MP, GFR, ADIFF, ANEU, CBC, PRO #### [address] [address] Neutrophils/100 WBC (Bld) 71.8 % Normal 50.0-75.0 [facility] Comment on above: Performed By: #### B MP, GFR, ADIFF, ANEU, CBC, PRO #### [address] [address] .GFRon 07-08-2024 GFR >[address] [facility] Comment on above: Result Comment: GFR Population mean for , Non- Americans Ages 20-29 = 116 mL/min/1.73 sq.m. Ages 30-39 = 107 mL/min/1.73 sq.m. Ages 40-49 = 99 mL/min/1.73 sq.m. Ages 50-59 = 93 mL/min/1.73 sq.m. Ages 60-69 = 85 mL/min/1.73 sq.m. Ages 70+ = 75 mL/min/1.73 sq.m. Chronic Kidney Disease: Less than 60 mL/min/1.73 square meters End Stage Renal Disease: Less than 15 mL/min/1.73 square meters Performed By: #### A ARI MEZA #### [address] [address] GFR Non- >60 Normal [facility] Comment on above: Result Comment: GFR Population mean for , Non- Americans Ages 20-29 = 116 mL/min/1.73 sq.m. Ages 30-39 = 107 mL/min/1.73 sq.m. Ages 40-49 = 99 mL/min/1.73 sq.m. Ages 50-59 = 93 mL/min/1.73 sq.m. Ages 60-69 = 85 mL/min/1.73 sq.m. Ages 70+ = 75 mL/min/1.73 sq.m. Chronic Kidney Disease: Less than 60 mL/min/1.73 square meters End Stage Renal Disease: Less than 15 mL/min/1.73 square meters Performed By: #### A ARI MEZA #### [address] [address] .NEUABSon 07-08-2024 Neutrophil, Absolute 6.4 10 3/mcL Normal 2.3-8.1 [facility] Comment on above: Performed By: #### B MP, GFR, ADIFF, ANEU, CBC, PRO #### [address] [address] BMPon 07-08-2024 BUN/Creatinine Ratio 25.6 ratio High 10.0-22.0 [facility] Comment on above: Performed By: #### A ARI MEZA #### [address] [address] Calcium [Mass/Vol] 9.6 mg/dL Normal 8.7-10.4 [facility] Comment on above: Performed By: #### A ARI MEZA #### [address] [address] Chloride [Moles/Vol] 106 mmol/L Normal 98-110 [facility] Comment on above: Performed By: #### A ARI MEZA #### [address] [address] CO2 [Moles/Vol] 31 mmol/L Normal 22-32 [facility] Comment on above: Performed By: #### A ARI MEZA #### [address] [address] Creatinine [Mass/Vol] 0.82 mg/dL Normal 0.50-1.[address] [facility] Comment on above: Result Comment: Test ing performed on [employer] analyzer using enzymatic creatinine methodology. Performed By: #### A ARI MEZA #### [address] [address] Electrolyte Balance 6.0 mEq/L Normal 4.0-15.0 [facility] Comment on above: Performed By: #### A ARI MEZA #### [address] [address] Glucose [Mass/Vol] 96 mg/dL Normal 82-115 [facility] Comment on above: Performed By: #### A ARI MEZA #### [address] [address] Potassium [Moles/Vol] 4.0 mmol/L Normal 3.5-5.[address] [facility] Comment on above: Performed By: #### A ARI MEZA #### [address] [address] Sodium [Moles/Vol] 143 mmol/L Normal 136-145 [facility] Comment on above: Performed By: #### A ARI MEZA #### [place] [address] Urea nitrogen [Mass/Vol] 21.0 mg/dL Normal 8.0-22.0 [facility] Comment on above: Performed By: #### A ARI MEZA #### [place] [address] CBCon 07-08-2024 Erythrocyte distribution width (RBC) [Ratio] 14.5 % Normal 11.5-15.5 [facility] Comment on above: Performed By: #### B MP, GFR, ADIFF, ANEU, CBC, PRO #### [place] [address] Hematocrit (Bld) [Volume fraction] 38.9 % Normal 34.0-46.0 [facility] Comment on above: Performed By: #### B MP, GFR, ADIFF, ANEU, CBC, PRO #### [place] [address] Hgb 13.0 G/dL Normal 12.0-16.0 [facility] Comment on above: Performed By: #### B MP, GFR, ADIFF, ANEU, CBC, PRO #### [place] [address] MCH (RBC) [Entitic mass] 30.5 pg Normal 27.0-33.0 [facility] Comment on above: Performed By: #### B MP, GFR, ADIFF, ANEU, CBC, PRO #### [place] [address] MCHC 33.3 G/dL Normal 32.0-36.0 [facility] Comment on above: Performed By: #### B MP, GFR, ADIFF, ANEU, CBC, PRO #### [place] [address] MCV (RBC) [Entitic vol] 91.6 fL Normal 80.0-99.0 [facility] Comment on above: Performed By: #### B MP, GFR, ADIFF, ANEU, CBC, PRO #### [place] [address] Platelet 252 10 3/mcL Normal 150-450 [facility] Comment on above: Performed By: #### B MP, GFR, ADIFF, ANEU, CBC, PRO #### [place] [address] Platelet mean volume (Bld) [Entitic vol] 8.2 fL Normal 6.6-10.5 [facility] Comment on above: Performed By: #### B MP, GFR, ADIFF, ANEU, CBC, PRO #### [place] [address] RBC 4.24 10 6/mcL Normal 4.10-5.30 [facility] Comment on above: Performed By: #### B MP, GFR, ADIFF, ANEU, CBC, PRO #### [place] [address] WBC 8.9 10 3/mcL Normal 4.5-10.8 [facility] Comment on above: Performed By: #### B MP, GFR, ADIFF, ANEU, CBC, PRO #### [place] [address] LABORATORYOrdered By: SYSTEM SYSTEM on 07-08-2024 Basophils (Bld) [#/Vol] 0.1 103/mcL Normal 0.0 - 0.3 10^3/mcL Workflow SS Basophils/100 WBC (Bld) 0.6 % Normal 0.0 - 2.5 % Workflow SS Calcium [Mass/Vol] 9.6 mg/dL Normal 8.7 - 10. 4 mg/dL ADM SS Chloride [Moles/Vol] 106 mmol/L Normal 98 - 11 0 mEq/L ADM SS CO2 [Moles/Vol] 31 mmol/L Normal 22 - 32 mEq/L ADM SS Creatinine [Mass/Vol] 0.82 mg/dL Normal 0.50 - 1.20 mg/dL ADM SS Comment on above: Interpretive Data: T esting performed on [employer] analyzer using enzymatic creatinine methodology. Electrolyte Balance 6.0 mEq/L Normal 4.0 - 15 .0 mEq/L ADM SS Eosinophils (Bld) [#/Vol] 0.1 103/mcL Normal 0.0 - 0.7 10^3/mcL AH Workflow SS Eosinophils/100 WBC (Bld) 1.1 % Normal 0.0 - 6.0 % Workflow SS Erythrocyte distribution width (RBC) [Ratio] 14.5 % Normal 11.5 - 15.5 % Workflow SS GFR/1.73 sq M.predicted among blacks MDRD (S/P/Bld) [Vol rate/Area] ml/min/1.73sqm Invalid Interpretation Code Chemistry S Comment on above: Interpretive Data: GFR Population mean for , Non- Americans Ages 20-29 = 116 mL/min/1.73 sq.m. Ages 30-39 = 107 mL/min/1.73 sq.m. Ages 40-49 = 99 mL/min/1.73 sq.m. Ages 50-59 = 93 mL/min/1.73 sq.m. Ages 60-69 = 85 mL/min/1.73 sq.m. Ages 70+ = 75 mL/min/1.73 sq.m. Chronic Kidney Disease: Less than 60 mL/min/1.73 square meters End Stage Renal Disease: Less than 15 mL/min/1.73 square meters GFR/1.73 sq M.predicted among non-blacks MDRD (S/P/Bld) [Vol rate/Area] ml/min/1.73sqm Invalid Interpretation Code [employer] Chemistry S Comment on above: Interpretive Data: GFR Population mean for , Non- Americans Ages 20-29 = 116 mL/min/1.73 sq.m. Ages 30-39 = 107 mL/min/1.73 sq.m. Ages 40-49 = 99 mL/min/1.73 sq.m. Ages 50-59 = 93 mL/min/1.73 sq.m. Ages 60-69 = 85 mL/min/1.73 sq.m. Ages 70+ = 75 mL/min/1.73 sq.m. Chronic Kidney Disease: Less than 60 mL/min/1.73 square meters End Stage Renal Disease: Less than 15 mL/min/1.73 square meters Glucose [Mass/Vol] 96 mg/dL Normal 82 - 115 mg/dL ADM SS Hematocrit (Bld) [Volume fraction] 38.9 % Normal 34.0 - 46.0 % Workflow SS Hemoglobin (Bld) [Mass/Vol] 13.0 G/dL Normal 12.0 - 16.0 G/dL Workflow SS Lymphocytes (Bld) [#/Vol] 1.8 103/mcL Normal 0.9 - 4.3 10^3/mcL Workflow SS Lymphocytes/100 WBC (Bld) 20.0 % Normal 20.0 - 40.0 % Workflow SS MCH (RBC) [Entitic mass] 30.5 pg Normal 27.0 - 33.0 pg Workflow SS MCHC 33.3 G/dL Normal 32.0 - 36.0 G/dL Workflow SS MCV (RBC) [Entitic vol] 91.6 fL Normal 80.0 - 99.0 fL Workflow SS Monocytes (Bld) [#/Vol] 0.6 103/mcL Normal 0.1 - 1.4 10^3/mcL Workflow SS Monocytes/100 WBC (Bld) 6.5 % Normal 2.0 - 13.0 % Workflow SS Neutrophils (Bld) [#/Vol] 6.4 103/mcL Normal 2.3 - 8.1 10^3/mcL Workflow SS Neutrophils/100 WBC (Bld) 71.8 % Normal 50.0 - 75.0 % Workflow SS Platelet mean volume (Bld) [Entitic vol] 8.2 fL Normal 6.6 - 10.5 fL Workflow SS Platelets (Bld) [#/Vol] 252 103/mcL Normal 150 - 450 10^3/mcL Workflow SS Potassium [Moles/Vol] 4.0 mmol/L Normal 3.5 - 5.0 mEq/L ADM SS PT Coag (PPP) [Time] 26.0 s High 9.0 - 1 4.4 seconds [facility] Comment on above: Interpretive Data: E ffective 02/09/08, Protime results may be affected by some antibiotics (i.e. Ciprofloxacin, Azithromycin, Bactrim) which may potentiate the action of oral anticoagulants, with further increases in Protime/INR. PT International Ratio 2.2 ratio Invalid Interpretation Code [facility] Comment on above: Interpretive Data: Cheng ugtierrez [employer] (CHEST, 1992, 102:312S-25S) recommended therapeutic range for oral anticoagulant therapy is: LOW RISK: Prophylaxis of venous thrombosis INR: 2.0-3.0 Treatment of pulmonary embolism 2.0-3.0 Prevention of systemic embolism 2.0-3.0 HIGH RISK: Mechanical prosthetic valves 2.5-3.5 RBC (Bld) [#/Vol] 4.24 106/mcL Normal 4.10 - 5.3 0 10^6/mcL Workflow SS Sodium [Moles/Vol] 143 mmol/L Normal 136 - 145 mEq/L AH ADM SS Urea nitrogen [Mass/Vol] 21.0 mg/dL Normal 8.0 - 22.0 mg/dL AH ADM SS Urea nitrogen/Creatinine [Mass ratio] 25.6 ratio High 10.0 - 22.0 ratio AH ADM SS WBC (Bld) [#/Vol] 8.9 103/mcL Normal 4.5 - 10.8 10^3/mcL Workflow SS PROon 07-08-2024 INR Coag (PPP) [Relative time] 2.2 {INR} Normal [facility] Comment on above: Result Comment: [employer] (CHEST, 1992, 102:312S-25S) recommended therapeutic range for oral anticoagulant therapy is: LOW RISK: Prophylaxis of venous thrombosis INR: 2.0-3.0 Treatment of pulmonary embolism 2.0-3.0 Prevention of systemic embolism 2.0-3.0 HIGH RISK: Mechanical prosthetic valves 2.5-3.5 Performed By: #### A ARI MEZA #### [address] [address] PT Coag (PPP) [Time] 26.0 s High 9.0-14.4 [facility] Comment on above: Result Comment: Effe ctive 02/09/08, Protime results may be affected by some antibiotics (i.e. Ciprofloxacin, Azithromycin, Bactrim) which may potentiate the action of oral anticoagulants, with further increases in Protime/INR. Performed By: #### A ARI MEZA #### [address] [address] XR CHEST 1 VIEWon 07-08-2024 XR CHEST 1 VIEW ORIGINAL EXAMINATION: ONE XRAY VIEW OF THE CHEST 07/08/2024 8:55 am COMPARISON: None. HISTORY: ORDERING SYSTEM PROVIDED HISTORY: Reason for Exam: Implantable Loop Recorder Placement FINDINGS: Loop recorder overlies the left atrium. Lungs show symmetric pneumatization without active alveolar, interstitial or pleural process. Skeletal elements remain intact. IMPRESSION: 1. Loop recorder in situ. 2. No acute airspace disease. Interpreted by: López Ngo DO Preliminary Report By: López Ngo DO Electronically signed By López Ngo DO Dictated Date: 07/08/2024 9:10:04 AM Prelim Date: 07/08/2024 9:10:42 AM Sign Date: 07/08/2024 9:10:42 AM Ordering Provider: JAIRON RG [facility] MAIN Neurology Visit Reporton Neurology Visit Report Normal [facility] Re-Evaluation - PT (1)on Re-Evaluation - PT (1) Normal [facility] OT D/C Summaryon 03-18-2024 OT D/C Summary Normal [facility] OT D/C of Non Returning Pton 03-18-2024 OT D/C of Non Returning Pt Normal [facility] Re-Evalution OTon 02-25-2024 Re-Evalution OT Normal [facility] Re-Evaluation - PT (1)on Re-Evaluation - PT (1) Normal [facility] Basic Metabolic Profile (BMP )on 01-30-2024 BUN Normal 7-18 [facility] Comment on above: Result Comment: Canc elled via OM: Order cancelled - Patient discharged Performed By: #### L 300.3900, L500.2500, L100.0100 ####[facility] [id number] [place], [address] BUN/CRE Normal 10-20 [facility] Comment on above: Result Comment: Canc elled via OM: Order cancelled - Patient discharged Performed By: #### L 300.3900, L500.2500, L100.0100 ####[facility] [address] [place], [address] CA,Total Normal 8.5-10.1 [facility] Comment on above: Result Comment: Canc elled via OM: Order cancelled - Patient discharged Performed By: #### L 300.3900, L500.2500, L100.0100 ####[facility] [address] [place], [address] CL Normal 98-107 [facility] Comment on above: Result Comment: Canc elled via OM: Order cancelled - Patient discharged Performed By: #### L 300.3900, L500.2500, L100.0100 ####[facility] [address] [place], [address] CO2 Normal 21.0-32.0 [facility] Comment on above: Result Comment: Canc elled via OM: Order cancelled - Patient discharged Performed By: #### L 300.3900, L500.2500, L100.0100 ####[facility] [address] [place], [address] CREAT,SERUM Normal 0.55-1.02 [facility] Comment on above: Result Comment: Canc elled via OM: Order cancelled - Patient discharged Performed By: #### L 300.3900, L500.2500, L100.0100 ####[facility] [address] [place], [address] EST GFR Normal >60 [facility] Comment on above: Result Comment: Canc elled via OM: Order cancelled - Patient discharged Performed By: #### L 300.3900, L500.2500, L100.0100 ####[facility] [address] [place], [address] EST GFR - AA Normal >60 [facility] Comment on above: Result Comment: Canc elled via OM: Order cancelled - Patient discharged Performed By: #### L 300.3900, L500.2500, L100.0100 ####[facility] [address] [place], [address] GAP Normal 5-15 [facility] Comment on above: Result Comment: Canc elled via OM: Order cancelled - Patient discharged Performed By: #### L 300.3900, L500.2500, L100.0100 ####[facility] [address] [place], [address] GLU Normal 74-106 [facility] Comment on above: Result Comment: Canc elled via OM: Order cancelled - Patient discharged Performed By: #### L 300.3900, L500.2500, L100.0100 ####[facility] [address] [place], [address] Potassium Normal 3.5-5.1 [facility] Comment on above: Result Comment: Canc elled via OM: Order cancelled - Patient discharged Performed By: #### L 300.3900, L500.2500, L100.0100 ####[facility] [address] [place], [address] Basic Metabolic Profile (BMP) Normal 136-145 [facility] Comment on above: Result Comment: Canc elled via OM: Order cancelled - Patient discharged Performed By: #### L 300.3900, L500.2500, L100.0100 ####[facility] [address] [place], [address] CBC W/Diff, Automatedon 07-0 -2023 Absolute Neut Normal 2.0-7.7 [facility] Comment on above: Result Comment: Canc elled via OM: Order cancelled - Patient discharged Performed By: #### L 300.3900, L500.2500, L100.0100 ####[facility] [address] [place], [address] HCT Normal 37-47 [facility] Comment on above: Result Comment: Canc elled via OM: Order cancelled - Patient discharged Performed By: #### L 300.3900, L500.2500, L100.0100 ####[facility] [address] [place], [address] HGB Normal 12.0-15.0 [facility] Comment on above: Result Comment: Canc elled via OM: Order cancelled - Patient discharged Performed By: #### L 300.3900, L500.2500, L100.0100 ####[facility] [address] [place], [address] MCH Normal 27.0-32.0 [facility] Comment on above: Result Comment: Canc elled via OM: Order cancelled - Patient discharged Performed By: #### L 300.3900, L500.2500, L100.0100 ####[facility] [address] [place], [address] MCHC Normal 32-36 [facility] Comment on above: Result Comment: Canc elled via OM: Order cancelled - Patient discharged Performed By: #### L 300.3900, L500.2500, L100.0100 ####[facility] [address] [place], [address] MCV Normal 81-99 [facility] Comment on above: Result Comment: Canc elled via OM: Order cancelled - Patient discharged Performed By: #### L 300.3900, L500.2500, L100.0100 ####[facility] [address] [place], [address] NEUT% Normal 47-70 [facility] Comment on above: Result Comment: Canc elled via OM: Order cancelled - Patient discharged Performed By: #### L 300.3900, L500.2500, L100.0100 ####[facility] [address] [place], [address] PLT Normal 150-450 [facility] Comment on above: Result Comment: Canc elled via OM: Order cancelled - Patient discharged Performed By: #### L 300.3900, L500.2500, L100.0100 ####[facility] [address] [place], [address] RBC Normal 4.2-5.4 [facility] Comment on above: Result Comment: Canc elled via OM: Order cancelled - Patient discharged Performed By: #### L 300.3900, L500.2500, L100.0100 ####[facility] [address] [place], [address] RDW CV Normal 11.6-14.6 [facility] Comment on above: Result Comment: Canc elled via OM: Order cancelled - Patient discharged Performed By: #### L 300.3900, L500.2500, L100.0100 ####[facility] [address] [place], [address] RDW SD Normal 35.1-43.9 [facility] Comment on above: Result Comment: Canc elled via OM: Order cancelled - Patient discharged Performed By: #### L 300.3900, L500.2500, L100.0100 ####[facility] [address] [place], [address] WBC Normal 4.4-11.0 [facility] Comment on above: Result Comment: Canc elled via OM: Order cancelled - Patient discharged Performed By: #### L 300.3900, L500.2500, L100.0100 ####[facility] [address] [place], [address] Prothrombin Time w/INRon INR Normal [facility] Comment on above: Result Comment: Canc elled via OM: Order cancelled - Patient discharged Performed By: #### L 300.3900, L500.2500, L100.0100 ####[facility] [address] [place], [address] PROTIME Normal 11.7-14.9 [facility] Comment on above: Result Comment: Canc elled via OM: Order cancelled - Patient discharged Performed By: #### L 300.3900, L500.2500, L100.0100 ####[facility] [address] [place], [address] Basic Metabolic Profile (BMP )on 01-29-2024 BUN/CRE 23.4 RATIO High 10-20 [facility] Comment on above: Performed By: #### L 300.3900, L500.2500, L100.0100 ####[facility] [address] [place], [address] CA,Total 8.8 mg/dL Normal 8.5-10.1 [facility] Comment on above: Performed By: #### L 300.3900, L500.2500, L100.0100 ####[facility] [address] [place], [address] Chloride [Moles/Vol] 109 mmol/L High 98-107 [facility] Comment on above: Performed By: #### L 300.3900, L500.2500, L100.0100 ####[facility] [address] [place], [address] CO2 [Moles/Vol] 26.0 mmol/L Normal 21.0-32.0 [facility] Comment on above: Performed By: #### L 300.3900, L500.2500, L100.0100 ####[facility] [address] [place], [address] Creatinine [Mass/Vol] 0.85 mg/dL Normal 0.55-1.02 [facility] Comment on above: Result Comment: The validity of the calculated GFR GFRAA in patients over70 years has not been determined. Clinical correlation isessential. Performed By: #### L 300.3900, L500.2500, L100.0100 ####[facility] [address] [place], [address] ECRCL 42.50 ml/min Normal [facility] Comment on above: Performed By: #### L 300.3900, L500.2500, L100.0100 ####[facility] [address] [place], [address] EST GFR - AA 81 mL/min Normal >60 [facility] Comment on above: Result Comment: Afri can [place] GFR Calc Performed By: #### L 300.3900, L500.2500, L100.0100 ####[facility] [address] [place], [address] GAP 7 Normal 5-15 [facility] Comment on above: Performed By: #### L 300.3900, L500.2500, L100.0100 ####[facility] [address] [place], [address] GFR/1.73 sq M.predicted among non-blacks MDRD (S/P/Bld) [Vol rate/Area] 67 mL/min/{1.73_m2} Normal >60 [facility] Comment on above: Result Comment: Non- GFR Calc Performed By: #### L 300.3900, L500.2500, L100.0100 ####[facility] [address] [place], [address] Glucose [Mass/Vol] 97 mg/dL Normal 74-106 [facility] Comment on above: Performed By: #### L 300.3900, L500.2500, L100.0100 ####[facility] [address] [place], [address] Potassium [Moles/Vol] 3.8 mmol/L Normal 3.5-5.1 [facility] Comment on above: Performed By: #### L 300.3900, L500.2500, L100.0100 ####[facility] [address] [place], [address] Sodium [Moles/Vol] 142 mmol/L Normal 136-145 [facility] Comment on above: Performed By: #### L 300.3900, L500.2500, L100.0100 ####[facility] [address] [place], [address] Urea nitrogen [Mass/Vol] 20 mg/dL High 7-18 [facility] Comment on above: Performed By: #### L 300.3900, L500.2500, L100.0100 ####[facility] [address] [place], [address] CBC W/Diff, Automatedon 07-0 4-2024 Absolute Lymph 2.20 X10 3/uL Normal 0.83-4.51 [facility] Comment on above: Performed By: #### L 300.3900, L500.2500, L100.0100 ####[facility] [address] [place], [address] Absolute Neut 5.4 X10 3/uL Normal 2.0-7.7 [facility] Comment on above: Performed By: #### L 300.3900, L500.2500, L100.0100 ####[facility] [address] [place], [address] Basophils/100 WBC (Bld) 0.5 % Normal 0-1 [facility] Comment on above: Performed By: #### L 300.3900, L500.2500, L100.0100 ####[facility] [address] [place], [address] Eosinophils/100 WBC (Bld) 1.9 % Normal 0-5 [facility] Comment on above: Performed By: #### L 300.3900, L500.2500, L100.0100 ####[facility] [address] [place], [address] Erythrocyte distribution width (RBC) [Ratio] 13.5 % Normal 11.6-14.6 [facility] Comment on above: Performed By: #### L 300.3900, L500.2500, L100.0100 ####[facility] [address] [place], [address] Hematocrit (Bld) [Volume fraction] 34.0 % Low 37-47 [facility] Comment on above: Performed By: #### L 300.3900, L500.2500, L100.0100 ####[facility] [address] [place], [address] Hemoglobin (Bld) [Mass/Vol] 10.9 g/dL Low 12.0-15.0 [facility] Comment on above: Performed By: #### L 300.3900, L500.2500, L100.0100 ####[facility] [address] [place], [address] IG% 0.400 Normal 0.0-0.9 [facility] Comment on above: Result Comment: IG% - Immature Granulocytes (promyelocytes, myelocytes andmetamyelocytes) > 1% indicates that a LEFT SHIFT is Present. Performed By: #### L 300.3900, L500.2500, L100.0100 ####[facility] [address] [place], [address] Lymphocytes/100 WBC (Bld) 26.4 % Normal 19-41 [facility] Comment on above: Performed By: #### L 300.3900, L500.2500, L100.0100 ####[facility] [address] [place], [address] MCH (RBC) [Entitic mass] 30.1 pg Normal 27.0-32.0 [facility] Comment on above: Performed By: #### L 300.3900, L500.2500, L100.0100 ####[facility] [address] [place], [address] MCHC (RBC) [Mass/Vol] 32.1 g/dL Normal 32-36 [facility] Comment on above: Performed By: #### L 300.3900, L500.2500, L100.0100 ####[facility] [address] [place], [address] MCV (RBC) [Entitic vol] 93.9 fL Normal 81-99 [facility] Comment on above: Performed By: #### L 300.3900, L500.2500, L100.0100 ####[facility] [address] [place], [address] Monocytes/100 WBC (Bld) 6.2 % Normal 0-10 [facility] Comment on above: Performed By: #### L 300.3900, L500.2500, L100.0100 ####[facility] [address] [place], [address] Neutrophils/100 WBC (Bld) 64.6 % Normal 47-70 [facility] Comment on above: Performed By: #### L 300.3900, L500.2500, L100.0100 ####[facility] [address] [place], [address] Nucleated RBC (Bld) [#/Vol] 0 10*3/uL Normal 0-5 [facility] Comment on above: Performed By: #### L 300.3900, L500.2500, L100.0100 ####[facility] [address] [place], [address] Platelet mean volume (Bld) [Entitic vol] 10.2 fL Normal 6.2-12.0 [facility] Comment on above: Performed By: #### L 300.3900, L500.2500, L100.0100 ####[facility] [address] [place], [address] Platelets (Bld) [#/Vol] 265 10*3/uL Normal 150-450 [facility] Comment on above: Performed By: #### L 300.3900, L500.2500, L100.0100 ####[facility] [address] [place], [address] RBC (Bld) [#/Vol] 3.62 10*6/uL Low 4.2-5.4 [facility] Comment on above: Performed By: #### L 300.3900, L500.2500, L100.0100 ####[facility] [address] [place], [address] RDW SD 46.3 fl High 35.1-43.9 [facility] Comment on above: Performed By: #### L 300.3900, L500.2500, L100.0100 ####[facility] [address] [place], [address] WBC (Bld) [#/Vol] 8.3 10*3/uL Normal 4.4-11.0 [facility] Comment on above: Performed By: #### L 300.3900, L500.2500, L100.0100 ####[facility] [address] [place], [address] Prothrombin Time w/INRon INR Coag (PPP) [Relative time] 2.0 {INR} [facility] Comment on above: Performed By: #### L 300.3900, L500.2500, L100.0100 ####[facility] [address] [place], [address] PT Coag (PPP) [Time] 22.2 s High 11.7-14.9 [facility] Comment on above: Performed By: #### L 300.3900, L500.2500, L100.0100 ####[facility] [address] [place], [address] Urine Cultureon 01-29-2024 URC Culture exhibits no growth. Normal [facility] Comment on above: Performed By: #### M 100.2200 ####[facility] [address] [place], [address] Basic Metabolic Profile (BMP )on 01-28-2024 BUN/CRE 20.7 RATIO High 10-20 [facility] Comment on above: Performed By: #### L 100.0100, L500.2500, L300.3900, L501.5200, L501.2300 ####[facility] [address] [place], [address] CA,Total 8.4 mg/dL Low 8.5-10.1 [facility] Comment on above: Performed By: #### L 100.0100, L500.2500, L300.3900, L501.5200, L501.2300 ####[facility] [address] [place], [address] Chloride [Moles/Vol] 108 mmol/L High 98-107 [facility] Comment on above: Performed By: #### L 100.0100, L500.2500, L300.3900, L501.5200, L501.2300 ####[facility] [address] [place], [address] CO2 [Moles/Vol] 29.0 mmol/L Normal 21.0-32.0 [facility] Comment on above: Performed By: #### L 100.0100, L500.2500, L300.3900, L501.5200, L501.2300 ####[facility] [address] [place], [address] Creatinine [Mass/Vol] 0.92 mg/dL Normal 0.55-1.02 [facility] Comment on above: Result Comment: The validity of the calculated GFR GFRAA in patients over70 years has not been determined. Clinical correlation isessential. Performed By: #### L 100.0100, L500.2500, L300.3900, L501.5200, L501.2300 ####[facility] [address] [place], [address] ECRCL 39.49 ml/min Normal [facility] Comment on above: Performed By: #### L 100.0100, L500.2500, L300.3900, L501.5200, L501.2300 ####[facility] [address] [place], [address] EST GFR - AA 75 mL/min Normal >60 [facility] Comment on above: Result Comment: Afri can [place] GFR Calc Performed By: #### L 100.0100, L500.2500, L300.3900, L501.5200, L501.2300 ####[facility] [address] [place], [address] GAP 6 Normal 5-15 [facility] Comment on above: Performed By: #### L 100.0100, L500.2500, L300.3900, L501.5200, L501.2300 ####[facility] [address] [place], [address] GFR/1.73 sq M.predicted among non-blacks MDRD (S/P/Bld) [Vol rate/Area] 62 mL/min/{1.73_m2} Normal >60 [facility] Comment on above: Result Comment: Non- GFR Calc Performed By: #### L 100.0100, L500.2500, L300.3900, L501.5200, L501.2300 ####[facility] [address] [place], [address] Glucose [Mass/Vol] 100 mg/dL Normal 74-106 [facility] Comment on above: Result Comment: Fast ing Glucose result from 100 to 125 mg/dLsuggests IMPAIRED HOMEOSTASIS per A.D.A. criteria. Performed By: #### L 100.0100, L500.2500, L300.3900, L501.5200, L501.2300 ####[facility] [address] [place], [address] Potassium [Moles/Vol] 3.9 mmol/L Normal 3.5-5.1 [facility] Comment on above: Performed By: #### L 100.0100, L500.2500, L300.3900, L501.5200, L501.2300 ####[facility] [address] [place], [address] Sodium [Moles/Vol] 143 mmol/L Normal 136-145 [facility] Comment on above: Performed By: #### L 100.0100, L500.2500, L300.3900, L501.5200, L501.2300 ####[facility] [address] [place], [address] Urea nitrogen [Mass/Vol] 19 mg/dL High 7-18 [facility] Comment on above: Performed By: #### L 100.0100, L500.2500, L300.3900, L501.5200, L501.2300 ####[facility] [address] [place], [address] CBC W/Diff, Automatedon 07-0 -2023 Absolute Lymph 1.86 X10 3/uL Normal 0.83-4.51 [facility] Comment on above: Performed By: #### L 100.0100, L500.2500, L300.3900, L501.5200, L501.2300 ####[facility] [address] [place], [address] Absolute Neut 4.2 X10 3/uL Normal 2.0-7.7 [facility] Comment on above: Performed By: #### L 100.0100, L500.2500, L300.3900, L501.5200, L501.2300 ####[facility] [address] [place], [address] Basophils/100 WBC (Bld) 0.6 % Normal 0-1 [facility] Comment on above: Performed By: #### L 100.0100, L500.2500, L300.3900, L501.5200, L501.2300 ####[facility] [address] [place], [address] Eosinophils/100 WBC (Bld) 1.9 % Normal 0-5 [facility] Comment on above: Performed By: #### L 100.0100, L500.2500, L300.3900, L501.5200, L501.2300 ####[facility] [address] [place], [address] Erythrocyte distribution width (RBC) [Ratio] 13.3 % Normal 11.6-14.6 [facility] Comment on above: Performed By: #### L 100.0100, L500.2500, L300.3900, L501.5200, L501.2300 ####[facility] [address] [place], [address] Hematocrit (Bld) [Volume fraction] 34.8 % Low 37-47 [facility] Comment on above: Performed By: #### L 100.0100, L500.2500, L300.3900, L501.5200, L501.2300 ####[facility] [address] [place], [address] Hemoglobin (Bld) [Mass/Vol] 11.1 g/dL Low 12.0-15.0 [facility] Comment on above: Performed By: #### L 100.0100, L500.2500, L300.3900, L501.5200, L501.2300 ####[facility] [address] [place], [address] IG% 0.300 Normal 0.0-0.9 [facility] Comment on above: Result Comment: IG% - Immature Granulocytes (promyelocytes, myelocytes andmetamyelocytes) > 1% indicates that a LEFT SHIFT is Present. Performed By: #### L 100.0100, L500.2500, L300.3900, L501.5200, L501.2300 ####[facility] [address] [place], [address] Lymphocytes/100 WBC (Bld) 27.4 % Normal 19-41 [facility] Comment on above: Performed By: #### L 100.0100, L500.2500, L300.3900, L501.5200, L501.2300 ####[facility] [address] [place], [address] MCH (RBC) [Entitic mass] 29.7 pg Normal 27.0-32.0 [facility] Comment on above: Performed By: #### L 100.0100, L500.2500, L300.3900, L501.5200, L501.2300 ####[facility] [address] [place], [address] MCHC (RBC) [Mass/Vol] 31.9 g/dL Low 32-36 [facility] Comment on above: Performed By: #### L 100.0100, L500.2500, L300.3900, L501.5200, L501.2300 ####[facility] [address] [place], [address] MCV (RBC) [Entitic vol] 93.0 fL Normal 81-99 [facility] Comment on above: Performed By: #### L 100.0100, L500.2500, L300.3900, L501.5200, L501.2300 ####[facility] [address] [place], [address] Monocytes/100 WBC (Bld) 7.5 % Normal 0-10 [facility] Comment on above: Performed By: #### L 100.0100, L500.2500, L300.3900, L501.5200, L501.2300 ####[facility] [address] [place], [address] Neutrophils/100 WBC (Bld) 62.3 % Normal 47-70 [facility] Comment on above: Performed By: #### L 100.0100, L500.2500, L300.3900, L501.5200, L501.2300 ####[facility] [address] [place], [address] Nucleated RBC (Bld) [#/Vol] 0 10*3/uL Normal 0-5 [facility] Comment on above: Performed By: #### L 100.0100, L500.2500, L300.3900, L501.5200, L501.2300 ####[facility] [address] [place], [address] Platelet mean volume (Bld) [Entitic vol] 10.4 fL Normal 6.2-12.0 [facility] Comment on above: Performed By: #### L 100.0100, L500.2500, L300.3900, L501.5200, L501.2300 ####[facility] [address] [place], [address] Platelets (Bld) [#/Vol] 243 10*3/uL Normal 150-450 [facility] Comment on above: Performed By: #### L 100.0100, L500.2500, L300.3900, L501.5200, L501.2300 ####[facility] [address] [place], [address] RBC (Bld) [#/Vol] 3.74 10*6/uL Low 4.2-5.4 [facility] Comment on above: Performed By: #### L 100.0100, L500.2500, L300.3900, L501.5200, L501.2300 ####[facility] [address] [place], [address] RDW SD 45.6 fl High 35.1-43.9 [facility] Comment on above: Performed By: #### L 100.0100, L500.2500, L300.3900, L501.5200, L501.2300 ####[facility] [address] [place], [address] WBC (Bld) [#/Vol] 6.8 10*3/uL Normal 4.4-11.0 [facility] Comment on above: Performed By: #### L 100.0100, L500.2500, L300.3900, L501.5200, L501.2300 ####[facility] [address] [place], [address] Magnesiumon 01-28-2024 Magnesium [Mass/Vol] 2.2 mg/dL Normal 1.6-2.6 [facility] Comment on above: Performed By: #### L 100.0100, L500.2500, L300.3900, L501.5200, L501.2300 ####[facility] [address] [place], [address] Phosphoruson 01-28-2024 Phosphate [Mass/Vol] 3.3 mg/dL Normal 2.5-4.9 [facility] Comment on above: Performed By: #### L 100.0100, L500.2500, L300.3900, L501.5200, L501.2300 ####[facility] [address] [place], [address] Prothrombin Time w/INRon INR Coag (PPP) [Relative time] 1.5 {INR} Normal [facility] Comment on above: Performed By: #### L 100.0100, L500.2500, L300.3900, L501.5200, L501.2300 ####[facility] [address] [place], [address] PT Coag (PPP) [Time] 18.1 s High 11.7-14.9 [facility] Comment on above: Performed By: #### L 100.0100, L500.2500, L300.3900, L501.5200, L501.2300 ####[facility] [address] [place], [address] Basic Metabolic Profile (BMP )on 01-27-2024 BUN/CRE 17.4 RATIO Normal 10-20 [facility] Comment on above: Performed By: #### L 100.0100, L300.3900, L500.2500 ####[facility] [address] [place], [address] CA,Total 9.1 mg/dL Normal 8.5-10.1 [facility] Comment on above: Performed By: #### L 100.0100, L300.3900, L500.2500 ####[facility] [address] [place], [address] Chloride [Moles/Vol] 107 mmol/L Normal 98-107 [facility] Comment on above: Performed By: #### L 100.0100, L300.3900, L500.2500 ####[facility] [address] [place], [address] CO2 [Moles/Vol] 30.0 mmol/L Normal 21.0-32.0 [facility] Comment on above: Performed By: #### L 100.0100, L300.3900, L500.2500 ####[facility] [address] [place], [address] Creatinine [Mass/Vol] 0.92 mg/dL Normal 0.55-1.02 [facility] Comment on above: Result Comment: The validity of the calculated GFR GFRAA in patients over70 years has not been determined. Clinical correlation isessential. Performed By: #### L 100.0100, L300.3900, L500.2500 ####[facility] [address] [place], [address] ECRCL 39.47 ml/min Normal [facility] Comment on above: Performed By: #### L 100.0100, L300.3900, L500.2500 ####[facility] [address] [place], [address] EST GFR - AA 74 mL/min Normal >60 [facility] Comment on above: Result Comment: Afri can [place] GFR Calc Performed By: #### L 100.0100, L300.3900, L500.2500 ####[facility] [address] [place], [address] GAP 3 Low 5-15 [facility] Comment on above: Performed By: #### L 100.0100, L300.3900, L500.2500 ####[facility] [address] [place], [address] GFR/1.73 sq M.predicted among non-blacks MDRD (S/P/Bld) [Vol rate/Area] 62 mL/min/{1.73_m2} Normal >60 [facility] Comment on above: Result Comment: Non- GFR Calc Performed By: #### L 100.0100, L300.3900, L500.2500 ####[facility] [address] [place], [address] Glucose [Mass/Vol] 99 mg/dL Normal 74-106 [facility] Comment on above: Performed By: #### L 100.0100, L300.3900, L500.2500 ####[facility] [address] [place], [address] Potassium [Moles/Vol] 3.8 mmol/L Normal 3.5-5.1 [facility] Comment on above: Performed By: #### L 100.0100, L300.3900, L500.2500 ####[facility] [address] [place], [address] Sodium [Moles/Vol] 140 mmol/L Normal 136-145 [facility] Comment on above: Performed By: #### L 100.0100, L300.3900, L500.2500 ####[facility] [address] [place], [address] Urea nitrogen [Mass/Vol] 16 mg/dL Normal 7-18 [facility] Comment on above: Performed By: #### L 100.0100, L300.3900, L500.2500 ####[facility] [address] [place], [address] Brain/Head without Contrasto n 01-26-2023 Brain/Head without Contrast Normal [facility] CBC W/Diff, Automatedon 07-0 2-2023 Absolute Lymph 1.54 X10 3/uL Normal 0.83-4.51 [facility] Comment on above: Performed By: #### L 100.0100, L300.3900, L500.2500 ####[facility] [address] [place], [address] Absolute Neut 9.2 X10 3/uL High 2.0-7.7 [facility] Comment on above: Performed By: #### L 100.0100, L300.3900, L500.2500 ####[facility] [address] [place], [address] Basophils/100 WBC (Bld) 0.5 % Normal 0-1 [facility] Comment on above: Performed By: #### L 100.0100, L300.3900, L500.2500 ####[facility] [address] [place], [address] Eosinophils/100 WBC (Bld) 0.7 % Normal 0-5 [facility] Comment on above: Performed By: #### L 100.0100, L300.3900, L500.2500 ####[facility] [address] [place], [address] Erythrocyte distribution width (RBC) [Ratio] 13.5 % Normal 11.6-14.6 [facility] Comment on above: Performed By: #### L 100.0100, L300.3900, L500.2500 ####[facility] [address] [place], [address] Hematocrit (Bld) [Volume fraction] 39.5 % Normal 37-47 [facility] Comment on above: Performed By: #### L 100.0100, L300.3900, L500.2500 ####[facility] [address] [place], [address] Hemoglobin (Bld) [Mass/Vol] 12.7 g/dL Normal 12.0-15.0 [facility] Comment on above: Performed By: #### L 100.0100, L300.3900, L500.2500 ####[facility] [address] [place], [address] IG% 0.400 Normal 0.0-0.9 [facility] Comment on above: Result Comment: IG% - Immature Granulocytes (promyelocytes, myelocytes andmetamyelocytes) > 1% indicates that a LEFT SHIFT is Present. Performed By: #### L 100.0100, L300.3900, L500.2500 ####[facility] [address] [place], [address] Lymphocytes/100 WBC (Bld) 13.5 % Low 19-41 [facility] Comment on above: Performed By: #### L 100.0100, L300.3900, L500.2500 ####[facility] [address] [place], [address] MCH (RBC) [Entitic mass] 29.9 pg Normal 27.0-32.0 [facility] Comment on above: Performed By: #### L 100.0100, L300.3900, L500.2500 ####[facility] [address] [place], [address] MCHC (RBC) [Mass/Vol] 32.2 g/dL Normal 32-36 [facility] Comment on above: Performed By: #### L 100.0100, L300.3900, L500.2500 ####[facility] [address] [place], [address] MCV (RBC) [Entitic vol] 92.9 fL Normal 81-99 [facility] Comment on above: Performed By: #### L 100.0100, L300.3900, L500.2500 ####[facility] [address] [place], [address] Monocytes/100 WBC (Bld) 4.6 % Normal 0-10 [facility] Comment on above: Performed By: #### L 100.0100, L300.3900, L500.2500 ####[facility] [address] [place], [address] Neutrophils/100 WBC (Bld) 80.3 % High 47-70 [facility] Comment on above: Performed By: #### L 100.0100, L300.3900, L500.2500 ####[facility] [address] [place], [address] Nucleated RBC (Bld) [#/Vol] 0 10*3/uL Normal 0-5 [facility] Comment on above: Performed By: #### L 100.0100, L300.3900, L500.2500 ####[facility] [address] [place], [address] Platelet mean volume (Bld) [Entitic vol] 10.1 fL Normal 6.2-12.0 [facility] Comment on above: Performed By: #### L 100.0100, L300.3900, L500.2500 ####[facility] [address] [place], [address] Platelets (Bld) [#/Vol] 249 10*3/uL Normal 150-450 [facility] Comment on above: Performed By: #### L 100.0100, L300.3900, L500.2500 ####[facility] [address] [place], [address] RBC (Bld) [#/Vol] 4.25 10*6/uL Normal 4.2-5.4 [facility] Comment on above: Performed By: #### L 100.0100, L300.3900, L500.2500 ####[facility] [address] [place], [address] RDW SD 45.9 fl High 35.1-43.9 [facility] Comment on above: Performed By: #### L 100.0100, L300.3900, L500.2500 ####[facility] [address] [place], [address] WBC (Bld) [#/Vol] 11.4 10*3/uL High 4.4-11.0 [facility] Comment on above: Performed By: #### L 100.0100, L300.3900, L500.2500 ####[facility] [address] [place], [address] Emergency Department Summary on 01-27-2024 Emergency Department Summary Normal [facility] H AND P Exam - Hospitaliston 01-27-2024 H&P Exam - Hospitalist Normal [facility] Prothrombin Time w/INRon INR Coag (PPP) [Relative time] 14.0 {INR} Invalid Interpretation Code [facility] Comment on above: Result Comment: CRIT ICAL VALUE VERIFIED. CALLED TO [facility]01/27/24 1058 Myra Mckenzie.RESULTS READ BACK BY SAME . Performed By: #### L 100.0100, L300.3900, L500.2500 ####[facility] [address] [place], [address] PT Coag (PPP) [Time] 102.3 s High 11.7-14.9 [facility] Comment on above: Performed By: #### L 100.0100, L300.3900, L500.2500 ####[facility] [address] [place], [address] Spine Cervical without Contr ason 01-27-2024 Spine Cervical without Contras Normal [facility] Urinalysis, Completeon 01-26 BACTERIA RARE Normal None Seen [facility] Comment on above: Order Comment: COLOR OF URINE MAY AFFECT DIPSTICK RESULTS.UTILIZATION MANAGER TO SPECIFY Performed By: #### L 400.0001 ####[facility] [address] [place], [address] EPI,SQUAMOUS 0-5 SEEN Normal 5-10 [facility] Comment on above: Order Comment: COLOR OF URINE MAY AFFECT DIPSTICK RESULTS.UTILIZATION MANAGER TO SPECIFY Performed By: #### L 400.0001 ####[facility] [address] [place], [address] RBC 50-100 SEEN Normal 0-5 [facility] Comment on above: Order Comment: COLOR OF URINE MAY AFFECT DIPSTICK RESULTS.UTILIZATION MANAGER TO SPECIFY Performed By: #### L 400.0001 ####[facility] [address] [place], [address] WBC 5-10 SEEN Normal 0-5 [facility] Comment on above: Order Comment: COLOR OF URINE MAY AFFECT DIPSTICK RESULTS.UTILIZATION MANAGER TO SPECIFY Performed By: #### L 400.0001 ####[facility] [address] [place], [address] Mucus Ql (Urine sed) 0 SEEN Normal [facility] Comment on above: Order Comment: COLOR OF URINE MAY AFFECT DIPSTICK RESULTS.UTILIZATION MANAGER TO SPECIFY Performed By: #### L 400.0001 ####[facility] [address] [place], [address] Re-Evaluation - PT (1)on Re-Evaluation - PT (1) Normal [facility] Re-Evalution OTon 2024 Re-Evalution OT Normal [facility] Re-Evaluation - PT (1)on Re-Evaluation - PT (1) Normal [facility] CREATININE FINGERSTICKon CREATININE WB < 1.0 Normal 0.55-1.02 [facility] Comment on above: Performed By: #### L 9100.0200 ####[facility] [address] [place], [place], [address] EGFR WB > 60.0000 Normal >60 [facility] Comment on above: Performed By: #### L 9100.0200 ####[facility] [address] [place], [address] CTA Head AND Neck W/ Contras ton 12-16-2023 CTA Head AND Neck W/ Contrast Normal [facility] Re-Evalution OTon 12-03-2023 Re-Evalution OT Normal [facility] Re-Evaluation - PT (1)on Re-Evaluation - PT (1) Normal [facility] Neurology Visit Reporton Neurology Visit Report Normal [facility] Inital Evaluation (1) - PTon 10-30-2023 Inital Evaluation (1) - PT Normal [facility] OT General Evaluationon OT General Evaluation Normal [facility] Hand Min 3 Viewson 4 Hand Min 3 Views Normal [facility] Wrist min 3 Viewson 09-30-19 24 Wrist min 3 Views Normal [facility] CBC W Auto Differential pane l (Bld)on 02-10-2024 Basophils (Bld) [#/Vol] 0.1 10*3/uL 0.0 - 0.2 10*3/uL [facility] Basophils/100 WBC (Bld) 0.6 % 0.0 - 2.0 % [facility] Eosinophils (Bld) [#/Vol] 0.3 10*3/uL 0.0 - 0.5 10*3/uL [facility] Eosinophils/100 WBC (Bld) 3.1 % 1.0 - 6.0 % [facility] Erythrocyte distribution width (RBC) [Ratio] 14.1 % 11.5 - 14.5 % [facility] Hematocrit (Bld) [Volume fraction] 41.0 % 35.0 - 47.0 % [facility] Hemoglobin (Bld) [Mass/Vol] 13.5 g/dL 11.7 - 16.0 g/dL [facility] Immature granulocytes (Bld) [#/Vol] 0.0 10*3/uL NINF - 0.0 10*3/uL [facility] Immature granulocytes/100 WBC (Bld) 0.2 % High NINF - 0.0 % [facility] Interpretation and review of laboratory results Abnormal [facility] Lymphocytes (Bld) [#/Vol] 2.3 10*3/uL 1.0 - 4.3 10*3/uL [facility] Lymphocytes/100 WBC (Bld) 27.3 % 20.0 - 40.0 % [facility] MCH (RBC) [Entitic mass] 30.1 pg 26.0 - 34.0 pg [facility] MCHC (RBC) [Mass/Vol] 32.9 % 32.0 - 36.0 % [facility] MCV (RBC) [Entitic vol] 91.3 fL 80.0 - 98.0 fL [facility] Monocytes (Bld) [#/Vol] 0.6 10*3/uL 0.0 - 0.8 10*3/uL [facility] Monocytes/100 WBC (Bld) 7.7 % 2.0 - 10.0 % [facility] Neutrophils (Bld) [#/Vol] 5.1 10*3/uL 1.8 - 7.0 10*3/uL [facility] Neutrophils/100 WBC (Bld) 61.1 % 40.0 - 80.0 % [facility] Platelet mean volume (Bld) [Entitic vol] 10.3 fL 7.4 - 12.4 fL [facility] Comment on above: MPV is a calculated measurement using platelet volume ratio Platelets (Bld) [#/Vol] 274 10*3/uL 140 - 440 10*3/uL [facility] RBC (Bld) [#/Vol] 4.49 10*6/uL 3.8 - 5.20 10*6/uL [facility] WBC (Bld) [#/Vol] 8.3 10*3/uL 3.6 - 10.7 10*3/uL [facility] CBC WITH AUTO DIFFERENTIALon 09-06-2023 Basophils (Bld) [#/Vol] 0.1 10*3/uL Normal 0.0-0.2 [facility] Comment on above: Performed By: #### L [id number] #### Admission Liaison: DANIELLA KUMAR ([phone]) [facility] [address] [place] [address] [place] Basophils/100 WBC (Bld) 0.6 % Normal 0.0-2.0 [facility] Comment on above: Performed By: #### L [id number] #### Admission Liaison: DANIELLA KUMAR ([phone]) [facility] [address] [place] [address] [place] Eosinophils (Bld) [#/Vol] 0.3 10*3/uL Normal 0.0-0.5 [facility] Comment on above: Performed By: #### L [id number] #### Admission Liaison: DANIELLA KUMAR ([phone]) [facility]) [address] [place] [address] [place] Eosinophils/100 WBC (Bld) 3.1 % Normal 1.0-6.0 [facility] Comment on above: Performed By: #### L [id number] #### Admission Liaison: DANIELLA KUMAR ([phone]) [facility]) [address] [place] [address] [place] Erythrocyte distribution width (RBC) [Ratio] 14.1 % Normal 11.5-14.5 [facility] Comment on above: Performed By: #### L [id number] #### Admission Liaison: DANIELLA KUMAR ([phone]) [facility] ([facility]) [address] [place] [address] ERYTHROCYTE MEAN CORPUSCULAR HEMOGLOBIN CONCENTRATION (G/DL) BY AUTOMATED 32.9 % Normal 32.0-36.0 [facility] Comment on above: Performed By: #### L [id number] #### Admission Liaison: DANIELLA KUMAR ([phone]) [facility] ([facility]) [address] [place] [address] Hematocrit (Bld) [Volume fraction] 41.0 % Normal 35.0-47.0 [facility] Comment on above: Performed By: #### L [id number] #### Admission Liaison: DANIELLA KUMAR ([phone]) [facility] ([facility]) [address] [place] [address] Hemoglobin (Bld) [Mass/Vol] 13.5 g/dL Normal 11.7-16.0 [facility] Comment on above: Performed By: #### L [id number] #### Admission Liaison: DANIELLA KUMAR ([phone]) [facility] ([facility]) [address] [place] [address] [place] IMMATURE GRANS (10*3/UL) IN BLOOD BY AUTOMATED COUNT 0.0 10*3/uL Normal <=0.0 [facility] Comment on above: Performed By: #### L [id number] #### Admission Liaison: DANIELLA KUMAR ([id number]) [facility] ([facility]) [address] [place] [address] [place] IMMATURE GRANS/100 LEUKOCYTES IN BLOOD BY AUTOMATED COUNT 0.2 % High <=0.0 [facility] Comment on above: Performed By: #### L [id number] #### Admission Liaison: DANIELLA KUMAR ([phone]) [facility] [place] [facility] (SWRL[place]) [address] [place] [address] [place] Lymphocytes (Bld) [#/Vol] 2.3 10*3/uL Normal 1.0-4.3 [facility] Comment on above: Performed By: #### L [id number] #### Admission Liaison: DANIELLA KUMAR ([phone]) [facility] ([facility]) [address] [place] [address] [place] Lymphocytes/100 WBC (Bld) 27.3 % Normal 20.0-40.0 [facility] Comment on above: Performed By: #### L [id number] #### Admission Liaison: DANIELLA KUMAR ([phone]) [facility] ([facility]RL[facility]) [address] [place] [address] MCH (RBC) [Entitic mass] 30.1 pg Normal 26.0-34.0 [facility] Comment on above: Performed By: #### L [id number] #### Admission Liaison: DANIELLA KUMAR ([phone]) [facility] ([facility]) [address] [place] [address] MCV (RBC) [Entitic vol] 91.3 fL Normal 80.0-98.0 [facility] Comment on above: Performed By: #### L [id number] #### Admission Liaison: DANIELLA KUMAR ([phone]) [facility] ([facility]) [address] [place] [address] [place] Monocytes (Bld) [#/Vol] 0.6 10*3/uL Normal 0.0-0.8 [facility] Comment on above: Performed By: #### L [id number] #### Admission Liaison: DANIELLA KUMAR ([phone]) [facility] ([place]) [address] [place] [address] [place] Monocytes/100 WBC (Bld) 7.7 % Normal 2.0-10.0 [facility] Comment on above: Performed By: #### L [id number] #### Admission Liaison: DANIELLA KUMAR ([phone]) [facility] ([facility]) [address] [place] [address] [place] Neutrophils (Bld) [#/Vol] 5.1 10*3/uL Normal 1.8-7.0 [facility] Comment on above: Performed By: #### L [id number] #### Admission Liaison: DANIELLA KUMAR ([id number]) [facility] ([facility]) [address] [place] [address] [place] Neutrophils/100 WBC (Bld) 61.1 % Normal 40.0-80.0 [facility] Comment on above: Performed By: #### L [id number] #### Admission Liaison: DANIELLA KUMAR ([phone]) [facility] ([facility]) [address] [place] [address] [place] Platelet mean volume (Bld) [Entitic vol] 10.3 fL Normal 7.4-12.4 [facility] Comment on above: Result Comment: MPV is a calculated measurement using platelet volume ratio Performed By: #### L [id number] #### Admission Liaison: DANIELLA KUMAR ([id number]) [facility] ([facility]) [address] [place] [address] [place] Platelets (Bld) [#/Vol] 274 10*3/uL Normal 140-440 [facility] Comment on above: Performed By: #### L [id number] #### Admission Liaison: DANIELLA KUMAR ([phone]) [facility] ([facility]) [address] [place] [address] [place] RBC (Bld) [#/Vol] 4.49 10*6/uL Normal 3.8-5.20 [facility] Comment on above: Performed By: #### L [id number] #### Admission Liaison: DANIELLA KUMAR ([phone]) [facility] ([facility]) [address] [place], [place] [address] [place] WBC (Bld) [#/Vol] 8.3 10*3/uL Normal 3.6-10.7 [facility] Comment on above: Performed By: #### L [id number] #### Admission Liaison: DANIELLA KUMAR ([phone]) [facility]) [address] [place] [address] COMPLETE URINALYSISon 2023 BACTERIA (#/HPF) IN URINE Few Abnormal Negative [facility] Comment on above: Performed By: #### L [id number] #### Admission Liaison: DANIELLA KUMAR ([phone]) [facility]) [address] [place] [address] BILIRUBIN, TOTAL PRESENCE IN URINE Negative Normal Negative [facility] Comment on above: Performed By: #### L [id number] #### Admission Liaison: DANIELLA KUMAR ([phone]) [facility] ([facility]) [address] [place] [address] Clarity (U) Clear Normal Clear [facility] Comment on above: Performed By: #### L [id number] #### Admission Liaison: DANIELLA KUMAR ([phone]) [facility] ([facility]) [address] [place] [address] Color (U) Light Yellow Normal Lt. Yellow [facility] Comment on above: Performed By: #### L [id number] #### Admission Liaison: DANIELLA KUMAR ([id number]) [facility] ([facility]) [address] [place] [address] GLUCOSE (MG/DL) IN URINE Normal Normal Normal (<70) [facility] Comment on above: Performed By: #### L [id number] #### Admission Liaison: DANIELLA KUMAR ([phone]) [facility] ([facility]) [address] [place] [address] HEMOGLOBIN PRESENCE IN URINE Negative Normal Negative [facility] Comment on above: Performed By: #### L [id number] #### Admission Liaison: DANIELLA KUMAR ([phone]) [facility] ([facility]) [address] [place] [address] Ketones Ql (U) Negative Normal Negative [facility] Comment on above: Performed By: #### L [id number] #### Admission Liaison: DANIELLA KUMAR ([phone]) [facility] ([facility]) [address] [place] [address] LEUKOCYTE ESTERASE PRESENCE IN URINE BY TEST STRIP 75 Alexander/uL Abnormal Negative [facility] Comment on above: Performed By: #### L [id number] #### Admission Liaison: DANIELLA KUMAR ([phone]) [facility] ([facility]) [address] [place] [address] NITRITE PRESENCE IN URINE Negative Normal Negative [facility] Comment on above: Performed By: #### L [id number] #### Admission Liaison: DANIELLA KUMAR ([phone]) [facility] ([facility]) [address] [place] [address] pH (U) 5.5 [pH] Normal 5.0-8.0 [facility] Comment on above: Performed By: #### L [id number] #### Admission Liaison: DANIELLA KUMAR ([phone]) [facility] ([facility]) [address] [place] [address] Protein (U) [Mass/Vol] Negative Normal Negative [facility] Comment on above: Performed By: #### L [id number] #### Admission Liaison: DANIELLA KUMAR ([phone]) [facility] ([facility]) [address] [place] [address] RBC (#/HPF) IN URINE SEDIMENT 0-2 Normal 0-2 [facility] Comment on above: Performed By: #### L [id number] #### Admission Liaison: DANIELLA KUMAR ([phone]) [facility] (SWRLAB) [address] Specific gravity (U) [Rel density] 1.010 Normal 1.005-1.030 [facility] Comment on above: Performed By: #### L [id number] #### Admission Liaison: DANIELLA KUMAR ([phone]) [facility]) [address] [place] [address] Specimen volume (U) 12 mL Normal [facility] Comment on above: Performed By: #### L [id number] #### Admission Liaison: DANIELLA KUMAR ([phone]) [facility]) [address] [place] [address] SQUAMOUS EPITHELIAL CELLS (#/HPF) IN URINE SEDIMENT 3-5 Normal 3-5 [facility] Comment on above: Performed By: #### L [id number] #### Admission Liaison: DANIELLA KUMAR ([phone]) [facility] ([facility]) [address] [place] [address] [place] UROBILINOGEN (MG/DL) IN URINE Normal Normal Normal (0-1) [facility] Comment on above: Performed By: #### L [id number] #### Admission Liaison: DANIELLA KUMAR ([phone]) [facility] ([facility]) [address] [place] [address] [place] WBC (LEUKOCYTE) (#/HPF) IN URINE SEDIMENT 3-5 Normal 0-5 [facility] Comment on above: Performed By: #### L [id number] #### Admission Liaison: DANIELLA KUMAR ([phone]) [facility]AL[facility]TE [facility] (SWRLAB) [address] [place] [address] [place] YEAST (#/HPF) IN URINE Moderate Abnormal Negative [facility] Comment on above: Result Comment: budd ing Performed By: #### L [id number] #### Admission Liaison: DANIELLA KUMAR ([phone]) [facility] (SWRLAB) [address] COMPREHENSIVE METABOLIC PANE Sammy 09-06-2023 Albumin [Mass/Vol] 4.0 g/dL Normal 3.5-5.0 [facility] Comment on above: Performed By: #### L [id number] #### Admission Liaison: DANIELLA KUMAR ([id number]) [facility] ESCAL[facility] (SWRLAB) [address] ALP [Catalytic activity/Vol] 83 U/L Normal 38-126 [facility] Comment on above: Performed By: #### L [id number] #### Admission Liaison: DANIELLA KUMAR ([phone]) [facility] ESCALANTE [facility]TM[facility] (SWRLAB) [address] [place] [address] ALT [Catalytic activity/Vol] 18 U/L Normal 0-34 [facility] Comment on above: Performed By: #### L [id number] #### Admission Liaison: DANIELLA KUMAR ([phone]) [facility] ESCALANTE [facility] (SWRLAB) [address] Anion gap [Moles/Vol] 9 mmol/L Normal 3-13 [facility] Comment on above: Performed By: #### L [id number] #### Admission Liaison: DANIELLA KUMAR ([phone]) [facility] ESCALANTE [facility] (SWRLAB) [address] AST [Catalytic activity/Vol] 28 U/L Normal 15-46 [facility] Comment on above: Performed By: #### L [id number] #### Admission Liaison: DANIELLA KUMAR ([phone]) [facility] ESC[facility] (SWRLAB) [address] Bilirubin [Mass/Vol] 0.7 mg/dL Normal 0.2-1.3 [facility] Comment on above: Performed By: #### L AB17 #### Admission Liaison: DANIELLA KUMAR ([phone]) [facility] ESC[facility] (SWRLAB) [address] [place] [address] [place] Calcium [Mass/Vol] 9.3 mg/dL Normal 8.4-10.4 [facility] Comment on above: Performed By: #### L AB17 #### Admission Liaison: DANIELLA KUMAR ([phone]) [facility] ESC[facility] (SWRLAB) [address] [place] [address] [place] Chloride [Moles/Vol] 107 mmol/L Normal 98-107 [facility] Comment on above: Performed By: #### L AB17 #### Admission Liaison: DANIELLA KUMAR ([phone]) [facility] ESCAL[facility] (SWRLAB) [address] [place] [address] [place] CO2 [Moles/Vol] 22 mmol/L Normal 22-30 [facility] Comment on above: Performed By: #### L AB17 #### Admission Liaison: DANIELLA KUMAR ([phone]) [facility] ESCAL[facility] (SWRLAB) [address] [place] [address] [place] Creatinine [Mass/Vol] 0.75 mg/dL Normal 0.52-1.04 [facility] Comment on above: Performed By: #### L AB17 #### Admission Liaison: DANIELLA KUMAR ([phone]) [facility] ESC[facility] (SWRLAB) [address] [place] [address] [place] GLOMERULAR FILTRATION RATE ML/MIN/1.73 SQ M.PREDICTED 78.6 mL/min/1.73m*2 Normal >60.0 [facility] Comment on above: Result Comment: Calc ulation based on the Chronic Kidney Disease Epidemiology Collaboration (CKD-EPI) equation refit without adjustment for race Performed By: #### L AB17 #### Admission Liaison: DANIELLA KUMAR ([phone]) [facility] ESCAL[facility] (SWRLAB) [address] [place] [address] [place] Glucose [Mass/Vol] 108 mg/dL High 70-100 [facility] Comment on above: Performed By: #### L AB17 #### Admission Liaison: DANIELLA KUMAR ([phone]) [facility] ESCALANTE RITTMAN (SWRLAB) [address] Potassium [Moles/Vol] 4.0 mmol/L Normal 3.5-5.1 [facility] Comment on above: Performed By: #### L AB17 #### Admission Liaison: DANEILLA KUMAR ([phone]) [facility] ESCALANTE [facility]TM[facility] (SWRLAB) [address] [place] [address] Protein [Mass/Vol] 7.1 g/dL Normal 6.3-8.2 [facility] Comment on above: Performed By: #### L AB17 #### Admission Liaison: DANIELLA KUMAR ([phone]) [facility] ESCALANTE [facility]TM[facility] (SWRLAB) [address] [place] [address] Sodium [Moles/Vol] 137 mmol/L Normal 135-145 [facility] Comment on above: Performed By: #### L AB17 #### Admission Liaison: DANIELLA KUMAR ([phone]) [facility]AL[facility] (SWRLAB) [address] [place] [address] Urea nitrogen [Mass/Vol] 14 mg/dL Normal 7-17 [facility] Comment on above: Performed By: #### L AB17 #### Admission Liaison: DANIELLA KUMAR ([phone]) [facility] ESCAL[facility]TE [facility] (SWRLAB) [address] [place] [address] Comprehensive metabolic 1998 panelon 09-06-2023 Albumin [Mass/Vol] 4.0 g/dL 3.5 - 5.0 g/dL [facility] ALP [Catalytic activity/Vol] 83 U/L 38 - 126 U/L [facility] ALT [Catalytic activity/Vol] 18 U/L 0 - 34 U/L [facility] Anion gap [Moles/Vol] 9 mmol/L 3 - 13 mmol/L [facility] AST [Catalytic activity/Vol] 28 U/L 15 - 46 U/L [facility] Bilirubin [Mass/Vol] 0.7 mg/dL 0.2 - 1 .3 mg/dL [facility] Calcium [Mass/Vol] 9.3 mg/dL 8.4 - 10. 4 mg/dL [facility] Chloride [Moles/Vol] 107 mmol/L 98 - 10 7 mmol/L [facility] CO2 [Moles/Vol] 22 mmol/L 22 - 30 mmol/L [facility] Creatinine [Mass/Vol] 0.75 mg/dL 0.52 - 1.04 mg/dL [facility] GFR/1.73 sq M.predicted MDRD (S/P/Bld) [Vol rate/Area] 78.6 mL/min/{1.73_m2} - PINF [facility] Comment on above: Calculation based on the Chronic Kidney Disease Epidemiology Collaboration (CKD-EPI) equation refit without adjustment for race Glucose [Mass/Vol] 108 mg/dL High 70 - 100 mg/dL [facility] Interpretation and review of laboratory results Abnormal [facility] Potassium [Moles/Vol] 4.0 mmol/L 3.5 - 5.1 mmol/L [facility] Protein [Mass/Vol] 7.1 g/dL 6.3 - 8.2 g/dL [facility] Sodium [Moles/Vol] 137 mmol/L 135 - 145 mmol/L [facility] Urea nitrogen [Mass/Vol] 14 mg/dL 7 - 17 mg/dL [facility] ED Nursing Noteon 09-06-2023 ED Nursing Note Lashon Tracey, age 83, came to ED7 by squad for a chief complaint of urinary frequency. Pt stated she has wet the bed the last two nights which is not normal for the pt. Pt's kids are worried about a UTI. Pt denies any back pain, n/v, difficulty urinating. Vitals obtained. Call light within reach. Normal [facility] ED Provider Noteon ED Provider Note EMERGENCY DEPARTMENT ENCOUNTER Pt Name: Lashon Tracey Birthdate 1940 Date of evaluation: 09/05/2023 ED Provider: Russ Delgado MD CHIEF COMPLAINT Chief Complaint Patient presents with ? Urinary Frequency HISTORY OF PRESENT ILLNESS (Location/Symptom, Timing/Onset, Context/Setting, Quality, Duration, Modifying Factors, Severity) Note limiting factors. I wore appropriate PPE for the entirety of this encounter. HPI Lashon Tracey is a 83 y.o. who presents [...] Neurological: Negative for seizures, syncope and headaches. Psychiatric/Behaviora l: Positive for confusion. Negative for agitation and behavioral problems. All other systems reviewed and are negative. Pertinent positives and negatives as per HPI. PAST MEDICAL HISTORY Past Medical History: Diagnosis Date ? Stroke (HCC) SURGICAL HISTORY History reviewed. No pertinent surgical history. CURRENT MEDICATIONS Previous Medications No medications on file ALLERGIES Patient has no known allergies. FAMILY HISTORY No family history on file. SOCIAL HISTORY Social History Tobacco Use ? Smoking status: Never ? Smokeless tobacco: Never Vaping Use ? Vaping Use: Never used Substance and Sexual Activity ? Alcohol use: Never ? Drug use: Never SCREENINGS PHYSICAL EXAM ED Triage Vitals [09/05/23 2330] Temp Heart Rate Resp BP 36.4 ?C (97.5 ?F) 78 14 133/62 SpO2 Temp Source Heart [...] Culture. Procedure Abnormality Status --------- ------ Complete Urinalysis[[id number]] Please view results for these tests on the individual orders. COMPLETE URINALYSIS All other labs were within normal range or not returned as of this dictation. EMERGENCY DEPARTMENT COURSE and DIFFERENTIAL DIAGNOSIS/MDM: Vitals: Vitals: 09/05/23 2330 BP: 133/62 BP Location: Right arm Patient Position: Lying Pulse: 78 Resp: 14 Temp: 36.4 ?C (97.5 ?F) TempSrc: Oral SpO2: 99% Diagnoses as of 09/06/23 0649 Dehydration Yeast vaginitis Fatigue, unspecif (more content not included)... Normal [facility] Urinalysis complete panel (U )Ordered By: Gale Daigle on 09-06-2023 Bacteria LM.HPF (Urine sed) [#/Area] Few Abnormal Negative /HPF [facility] Bilirubin Ql (U) Negative Negative mg/dL [facility] Clarity (U) Clear Clear [facility] Color (U) Light Yellow Lt. Yellow [facility] Epithelial cells.squamous LM.HPF (Urine sed) [#/Area] 3-5 [facility] Gl[facility] Ql (U) Normal Normal (<70) mg/dL [facility] Hemoglobin Ql (U) Negative Negative mg/dL [facility] Interpretation and review of laboratory results Abnormal [facility] Ketones (U) [Mass/Vol] Negative Negat radha mg/dL [facility] Leukocyte esterase Test strip Ql (U) 75 Abnormal Negative Alexander/uL [facility] Nitrite Ql (U) Negative Negative [facility] th pH (U) 5.5 [pH] 5.0 - 8.0 pH [facility] Protein (U) [Mass/Vol] Negative Negat radha mg/dL [facility] RBC LM.HPF (Urine sed) [#/Area] 0-2 [facility] Specific gravity (U) [Rel density] 1.010 1.005 - 1.030 [facility] Urobilinogen (U) [Mass/Vol] Normal Normal (0-1) mg/dL [facility] Volume, Urine 12 mL [facility] WBC LM.HPF (Urine sed) [#/Area] 3-5 [facility] Yeast.budding LM.HPF (Urine sed) [#/Area] Moderate Abnormal Negative /HPF [facility] Comment on above: budding [facility] Absolute lymphocyte countOrd ered By: Mukul Franco on 08-18-2023 Lymphocytes Auto (Unsp spec) [#/Vol] 1.44 10*3/uL 0.83-4.51 [facility] Automated lymphocyte count a s percentage of total leukocytesOrdered By: Mukul Franco on 08-18-2023 Lymphocytes/100 WBC Auto (Unsp spec) 21.0 % 19-41 [facility] Basic Metabolic Profile (BMP )on 08-18-2023 BUN/CRE 8.1 RATIO Low 10-20 [facility] Comment on above: Performed By: #### L 500.2500, L100.0100 ####[facility] [address] [place], [address] CA,Total 8.7 mg/dL Normal 8.5-10.1 [facility] Comment on above: Performed By: #### L 500.2500, L100.0100 ####[facility] [address] [place], [address] Chloride [Moles/Vol] 113 mmol/L High 98-107 [facility] Comment on above: Performed By: #### L 500.2500, L100.0100 ####[facility] [address] [place], [address] CO2 [Moles/Vol] 25.0 mmol/L Normal 21.0-32.0 [facility] Comment on above: Performed By: #### L 500.2500, L100.0100 ####[facility] [address] [place], [address] Creatinine [Mass/Vol] 0.86 mg/dL Normal 0.55-1.02 [facility] Comment on above: Result Comment: The validity of the calculated GFR GFRAA in patients over70 years has not been determined. Clinical correlation isessential. Performed By: #### L 500.2500, L100.0100 ####[facility] [address] [place], [address] ECRCL 44.83 ml/min Normal [facility] Comment on above: Performed By: #### L 500.2500, L100.0100 ####[facility] [address] [place], [address] EST GFR - AA 81 mL/min Normal >60 [facility] Comment on above: Result Comment: Afri can [place] GFR Calc Performed By: #### L 500.2500, L100.0100 ####[facility] [address] [place], [address] GAP 5 Normal 5-15 [facility] Comment on above: Performed By: #### L 500.2500, L100.0100 ####[facility] [address] [place], [address] GFR/1.73 sq M.predicted among non-blacks MDRD (S/P/Bld) [Vol rate/Area] 67 mL/min/{1.73_m2} Normal >60 [facility] Comment on above: Result Comment: Non- GFR Calc Performed By: #### L 500.2500, L100.0100 ####[facility] [address] [place], [address] Glucose [Mass/Vol] 95 mg/dL Normal 74-106 [facility] Comment on above: Performed By: #### L 500.2500, L100.0100 ####[facility] [address] [place], [address] Potassium [Moles/Vol] 3.8 mmol/L Normal 3.5-5.1 [facility] Comment on above: Performed By: #### L 500.2500, L100.0100 ####[facility] [address] [place], [address] Sodium [Moles/Vol] 143 mmol/L Normal 136-145 [facility] Comment on above: Performed By: #### L 500.2500, L100.0100 ####[facility] [address] [place], [address] Urea nitrogen [Mass/Vol] 7 mg/dL Normal 7-18 [facility] Comment on above: Performed By: #### L 500.2500, L100.0100 ####[facility] [address] [place], [address] Basophil percentageOrdered B y: Mukul Franco on 08-18-2023 Basophils/100 WBC (Bld) 0.7 % 0-1 [facility] Chloride [Moles/Vol] 113 mmol/L 98-107 [facility] Eosinophils/100 WBC (Bld) 4.8 % 0-5 [facility] Glucose [Mass/Vol] 95 mg/dL 74-106 [facility] Hemoglobin (Bld) [Mass/Vol] 11.0 g/dL 12.0-15.0 [facility] Monocytes/100 WBC (Bld) 6.3 % 0-10 [facility] Neutrophils (Bld) [#/Vol] 4.6 10*3/uL 2.0-7.7 [facility] Neutrophils/100 WBC (Bld) 66.9 % 47-70 [facility] Potassium [Moles/Vol] 3.8 mmol/L 3.5-5.1 [facility] Sodium [Moles/Vol] 143 mmol/L 136-145 [facility] WBC (Bld) [#/Vol] 6.9 10*3/uL 4.4-11.0 [facility] CBC W/Diff, Automatedon 07-29 Absolute Lymph 1.44 X10 3/uL Normal 0.83-4.51 [facility] Comment on above: Performed By: #### L 500.2500, L100.0100 ####[facility] [address] [place], [address] Absolute Neut 4.6 X10 3/uL Normal 2.0-7.7 [facility] Comment on above: Performed By: #### L 500.2500, L100.0100 ####[facility] [address] [place], [address] Basophils/100 WBC (Bld) 0.7 % Normal 0-1 [facility] Comment on above: Performed By: #### L 500.2500, L100.0100 ####[facility] [address] [place], [address] Eosinophils/100 WBC (Bld) 4.8 % Normal 0-5 [facility] Comment on above: Performed By: #### L 500.2500, L100.0100 ####[facility] [address] [place], [address] Erythrocyte distribution width (RBC) [Ratio] 13.4 % Normal 11.6-14.6 [facility] Comment on above: Performed By: #### L 500.2500, L100.0100 ####[facility] [address] [place], [address] Hematocrit (Bld) [Volume fraction] 34.3 % Low 37-47 [facility] Comment on above: Performed By: #### L 500.2500, L100.0100 ####[facility] [address] [place], [address] Hemoglobin (Bld) [Mass/Vol] 11.0 g/dL Low 12.0-15.0 [facility] Comment on above: Performed By: #### L 500.2500, L100.0100 ####[facility] [address] [place], [address] IG% 0.300 Normal 0.0-0.9 [facility] Comment on above: Result Comment: IG% - Immature Granulocytes (promyelocytes, myelocytes andmetamyelocytes) > 1% indicates that a LEFT SHIFT is Present. Performed By: #### L 500.2500, L100.0100 ####[facility] [address] [place], [address] Lymphocytes/100 WBC (Bld) 21.0 % Normal 19-41 [facility] Comment on above: Performed By: #### L 500.2500, L100.0100 ####[facility] [address] [place], [address] MCH (RBC) [Entitic mass] 29.8 pg Normal 27.0-32.0 [facility] Comment on above: Performed By: #### L 500.2500, L100.0100 ####[facility] [address] [place], [address] MCHC (RBC) [Mass/Vol] 32.1 g/dL Normal 32-36 [facility] Comment on above: Performed By: #### L 500.2500, L100.0100 ####[facility] [address] [place], [address] MCV (RBC) [Entitic vol] 93.0 fL Normal 81-99 [facility] Comment on above: Performed By: #### L 500.2500, L100.0100 ####[facility] [address] [place], [address] Monocytes/100 WBC (Bld) 6.3 % Normal 0-10 [facility] Comment on above: Performed By: #### L 500.2500, L100.0100 ####[facility] [address] [place], [address] Neutrophils/100 WBC (Bld) 66.9 % Normal 47-70 [facility] Comment on above: Performed By: #### L 500.2500, L100.0100 ####[facility] [address] [place], [address] Nucleated RBC (Bld) [#/Vol] 0 10*3/uL Normal 0-5 [facility] Comment on above: Performed By: #### L 500.2500, L100.0100 ####[facility] [address] [place], [address] Platelet mean volume (Bld) [Entitic vol] 9.8 fL Normal 6.2-12.0 [facility] Comment on above: Performed By: #### L 500.2500, L100.0100 ####[facility] [address] [place], [address] Platelets (Bld) [#/Vol] 344 10*3/uL Normal 150-450 [facility] Comment on above: Performed By: #### L 500.2500, L100.0100 ####[facility] [address] [place], [address] RBC (Bld) [#/Vol] 3.69 10*6/uL Low 4.2-5.4 [facility] Comment on above: Performed By: #### L 500.2500, L100.0100 ####[facility] [address] [place], [address] RDW SD 45.9 fl High 35.1-43.9 [facility] Comment on above: Performed By: #### L 500.2500, L100.0100 ####[facility] [address] [place], [address] WBC (Bld) [#/Vol] 6.9 10*3/uL Normal 4.4-11.0 [facility] Comment on above: Performed By: #### L 500.2500, L100.0100 ####[facility] [address] [place], [address] Determination of erythrocyte mean corpuscular volume (MCV)Ordered By: Mukul Franco on 08-18-2023 MCV (RBC) [Entitic vol] 93.0 fL 81-99 [facility] Erythrocyte distribution wid th ratioOrdered By: Mukul Franco on 08-18-2023 Erythrocyte distribution width (RBC) [Ratio] 13.4 % 11.6-14.6 [facility] Erythrocyte distribution wid th standard deviationOrdered By: Mukul Franco on 08-18-2023 Erythrocyte distribution width (RBC) [Entitic vol] 45.9 fL 35.1-43.9 [facility] Hematocrit Auto (Bld) [Volum e fraction]Ordered By: Mukul Franco on 08-18-2023 Hematocrit (Bld) [Volume fraction] 34.3 % 37-47 [facility] Immature granulocytes/100 WB C Auto (Bld)Ordered By: Mukul Franco on 08-18-2023 Immature granulocytes/100 WBC (Bld) 0.300 % 0.0-0.9 [facility] Comment on above: IG% - Immature Granu locytes (promyelocytes, myelocytes and metamyelocytes) > 1% indicates that a LEFT SHIFT is Present. Laboratory - Chemistry and C hemistry - challengeOrdered By: Mukul Franco on 08-18-2023 CO2 [Moles/Vol] 25.0 mmol/L 21.0-32.0 [facility] Urea nitrogen/Creatinine [Mass ratio] 8.1 mg/mg 10-20 [facility] Laboratory - Hematology and Cell countsOrdered By: Mukul Franco on 08-18-2023 MCH (RBC) [Entitic mass] 29.8 pg 27.0-32.0 [facility] MCHC (RBC) [Mass/Vol] 32.1 g/dL 32-36 [facility] Nucleated RBC/100 WBC (Bld) [Ratio] 0 % 0-5 [facility] Platelets (Bld) [#/Vol] 344 10*3/uL 150-450 [facility] No Panel InformationOrdered By: Mukul Franco on 08-18-2023 Estimated Creatinine Clearance Calc 44.83 ml/min [facility] Estimated GFR (MDRD) Amer 81 mL/min >60 [facility] Comment on above: GFR Calc Estimated GFR (MDRD) Non-Af Amer 67 mL/min >60 [facility] Comment on above: Non- GFR Calc Platelet mean volume Tomás-Ec ker (Bld) [Entitic vol]Ordered By: Mukul Franco on 08-18-2023 Platelet mean volume (Bld) [Entitic vol] 9.8 fL 6.2-12.0 [facility] RBC Auto (Bld) [#/Vol]Ordere d By: Mukul Franco on 08-18-2023 RBC (Bld) [#/Vol] 3.69 10*6/uL 4.2-5.4 [facility] Serum or plasma calcium eder urement (mass/volume)Ordered By: Mukul Franco on 08-18-2023 Calcium [Mass/Vol] 8.7 mg/dL 8.5-10.1 [facility] Serum or plasma creatinine m easurement (mass/volume)Ordered By: Mukul Franco on 08-18-2023 Creatinine [Mass/Vol] 0.86 mg/dL 0.55-1.02 [facility] Comment on above: The validity of the calculated GFR & GFRAA in patients over 70 years has not been determined. Clinical correlation is essential. Serum or plasma urea nitroge n measurement (mass/volume)Ordered By: Mukul Franco on 08-18-2023 Urea nitrogen [Mass/Vol] 7 mg/dL 7-18 [facility] Thin prep Papanicolaou smear with manual screeningOrdered By: Mukul Franco on 08-18-2023 Thin prep Papanicolaou smear with manual screening 5 5-15 [facility] Basic Metabolic Profile (BMP )on 08-16-2023 BUN/CRE 8.2 RATIO Low 10- [facility] Comment on above: Performed By: #### L 100.0100, L500.2500 ####[facility] [address] [place], [address] CA,Total 8.5 mg/dL Normal 8.5-10.1 [facility] Comment on above: Performed By: #### L 100.0100, L500.2500 ####[facility] [address] [place], [address] Chloride [Moles/Vol] 113 mmol/L High 98-107 [facility] Comment on above: Performed By: #### L 100.0100, L500.2500 ####[facility] [address] [place], [address] CO2 [Moles/Vol] 26.0 mmol/L Normal 21.0-32.0 [facility] Comment on above: Performed By: #### L 100.0100, L500.2500 ####[facility] [address] [place], [address] Creatinine [Mass/Vol] 0.85 mg/dL Normal 0.55-1.02 [facility] Comment on above: Result Comment: The validity of the calculated GFR GFRAA in patients over70 years has not been determined. Clinical correlation isessential. Performed By: #### L 100.0100, L500.2500 ####[facility] [address] [place], [address] ECRCL 45.36 ml/min Normal [facility] Comment on above: Performed By: #### L 100.0100, L500.2500 ####[facility] [address] [place], [address] EST GFR - AA 82 mL/min Normal >60 [facility] Comment on above: Result Comment: Afri can [place] GFR Calc Performed By: #### L 100.0100, L500.2500 ####[facility] [address] [place], [address] GAP 4 Low 5-15 [facility] Comment on above: Performed By: #### L 100.0100, L500.2500 ####[facility] [address] [place], [address] GFR/1.73 sq M.predicted among non-blacks MDRD (S/P/Bld) [Vol rate/Area] 67 mL/min/{1.73_m2} Normal >60 [facility] Comment on above: Result Comment: Non- GFR Calc Performed By: #### L 100.0100, L500.2500 ####[facility] [address] [place], [address] Glucose [Mass/Vol] 99 mg/dL Normal 74-106 [facility] Comment on above: Performed By: #### L 100.0100, L500.2500 ####[facility] [address] [place], [address] Potassium [Moles/Vol] 3.9 mmol/L Normal 3.5-5.1 [facility] Comment on above: Performed By: #### L 100.0100, L500.2500 ####[facility] [address] [place], [address] Sodium [Moles/Vol] 143 mmol/L Normal 136-145 [facility] Comment on above: Performed By: #### L 100.0100, L500.2500 ####[facility] [address] [place], [address] Urea nitrogen [Mass/Vol] 7 mg/dL Normal 7-18 [facility] Comment on above: Performed By: #### L 100.0100, L500.2500 ####[facility] [address] [place], [address] CBC W/Diff, Automatedon -2 0-2024 Absolute Lymph 1.78 X10 3/uL Normal 0.83-4.51 [facility] Comment on above: Performed By: #### L 100.0100, L500.2500 ####[facility] [address] [place], [address] Absolute Neut 4.1 X10 3/uL Normal 2.0-7.7 [facility] Comment on above: Performed By: #### L 100.0100, L500.2500 ####[facility] [address] [place], [address] Basophils/100 WBC (Bld) 0.6 % Normal 0-1 [facility] Comment on above: Performed By: #### L 100.0100, L500.2500 ####[facility] [address] [place], [address] Eosinophils/100 WBC (Bld) 2.3 % Normal 0-5 [facility] Comment on above: Performed By: #### L 100.0100, L500.2500 ####[facility] [address] [place], [address] Erythrocyte distribution width (RBC) [Ratio] 13.7 % Normal 11.6-14.6 [facility] Comment on above: Performed By: #### L 100.0100, L500.2500 ####[facility] [address] [place], [address] Hematocrit (Bld) [Volume fraction] 35.5 % Low 37-47 [facility] Comment on above: Performed By: #### L 100.0100, L500.2500 ####[facility] [address] [place], [address] Hemoglobin (Bld) [Mass/Vol] 11.1 g/dL Low 12.0-15.0 [facility] Comment on above: Performed By: #### L 100.0100, L500.2500 ####[facility] [address] [place], [address] IG% 0.300 Normal 0.0-0.9 [facility] Comment on above: Result Comment: IG% - Immature Granulocytes (promyelocytes, myelocytes andmetamyelocytes) > 1% indicates that a LEFT SHIFT is Present. Performed By: #### L 100.0100, L500.2500 ####[facility] [address] [place], [address] Lymphocytes/100 WBC (Bld) 27.1 % Normal 19-41 [facility] Comment on above: Performed By: #### L 100.0100, L500.2500 ####[facility] [address] [place], [address] MCH (RBC) [Entitic mass] 29.3 pg Normal 27.0-32.0 [facility] Comment on above: Performed By: #### L 100.0100, L500.2500 ####[facility] [address] [place], [address] MCHC (RBC) [Mass/Vol] 31.3 g/dL Low 32-36 [facility] Comment on above: Performed By: #### L 100.0100, L500.2500 ####[facility] [address] [place], [address] MCV (RBC) [Entitic vol] 93.7 fL Normal 81-99 [facility] Comment on above: Performed By: #### L 100.0100, L500.2500 ####[facility] [address] [place], [address] Monocytes/100 WBC (Bld) 7.2 % Normal 0-10 [facility] Comment on above: Performed By: #### L 100.0100, L500.2500 ####[facility] [address] [place], [address] Neutrophils/100 WBC (Bld) 62.5 % Normal 47-70 [facility] Comment on above: Performed By: #### L 100.0100, L500.2500 ####[facility] [address] [place], [address] Nucleated RBC (Bld) [#/Vol] 0 10*3/uL Normal 0-5 [facility] Comment on above: Performed By: #### L 100.0100, L500.2500 ####[facility] [address] [place], [address] Platelet mean volume (Bld) [Entitic vol] 9.4 fL Normal 6.2-12.0 [facility] Comment on above: Performed By: #### L 100.0100, L500.2500 ####[facility] [address] [place], [address] Platelets (Bld) [#/Vol] 381 10*3/uL Normal 150-450 [facility] Comment on above: Performed By: #### L 100.0100, L500.2500 ####[facility] [address] [place], [address] RBC (Bld) [#/Vol] 3.79 10*6/uL Low 4.2-5.4 [facility] Comment on above: Performed By: #### L 100.0100, L500.2500 ####[facility] [address] [place], [address] RDW SD 46.7 fl High 35.1-43.9 [facility] Comment on above: Performed By: #### L 100.0100, L500.2500 ####[facility] [address] [place], [address] WBC (Bld) [#/Vol] 6.6 10*3/uL Normal 4.4-11.0 [facility] Comment on above: Performed By: #### L 100.0100, L500.2500 ####[facility] [address] [place], [address] Hemoglobin A1con 08-16-2023 HbA1c (Bld) [Mass fraction] 5.6 % Normal 3.8-5.6 [facility] Comment on above: Result Comment: Norm al < 5.7 % Prediabetic 5.7 - 6.4 % Diabetic >or= 6.5 % Please note range changes. Performed By: #### L 501.9985 ####[facility] [address] [place], [address] Whole blood hemoglobin A1c/t otal hemoglobin ratio (mass fraction)Ordered By: Mukul Franco on 08-16-2023 HbA1c (Bld) [Mass fraction] 5.6 % 3.8-5.6 [facility] Comment on above: Normal < 5.7 % Predi abetic 5.7 - 6.4 % Diabetic >or= 6.5 % Please note range changes. Basic Metabolic Profile (BMP )on 08-15-2023 BUN/CRE 10.0 RATIO Normal - [facility] Comment on above: Performed By: #### L 500.2500, L100.0100, L500.4100 ####[facility] [address] [place], [address] CA,Total 8.7 mg/dL Normal 8.5-10.1 [facility] Comment on above: Performed By: #### L 500.2500, L100.0100, L500.4100 ####[facility] [address] [place], [address] Chloride [Moles/Vol] 111 mmol/L High 98-107 [facility] Comment on above: Performed By: #### L 500.2500, L100.0100, L500.4100 ####[facility] [address] [place], [address] CO2 [Moles/Vol] 27.0 mmol/L Normal 21.0-32.0 [facility] Comment on above: Performed By: #### L 500.2500, L100.0100, L500.4100 ####[facility] [address] [place], [address] Creatinine [Mass/Vol] 0.90 mg/dL Normal 0.55-1.02 [facility] Comment on above: Result Comment: The validity of the calculated GFR GFRAA in patients over70 years has not been determined. Clinical correlation isessential. Performed By: #### L 500.2500, L100.0100, L500.4100 ####[facility] [address] [place], [address] ECRCL 42.84 ml/min Normal [facility] Comment on above: Performed By: #### L 500.2500, L100.0100, L500.4100 ####[facility] [address] [place], [address] EST GFR - AA 77 mL/min Normal >60 [facility] Comment on above: Result Comment: Afri can [place] GFR Calc Performed By: #### L 500.2500, L100.0100, L500.4100 ####[facility] [address] [place], [address] GAP 4 Low 5-15 [facility] Comment on above: Performed By: #### L 500.2500, L100.0100, L500.4100 ####[facility] [address] [place], [address] GFR/1.73 sq M.predicted among non-blacks MDRD (S/P/Bld) [Vol rate/Area] 63 mL/min/{1.73_m2} Normal >60 [facility] Comment on above: Result Comment: Non- GFR Calc Performed By: #### L 500.2500, L100.0100, L500.4100 ####[facility] [address] [place], [address] Glucose [Mass/Vol] 101 mg/dL Normal 74-106 [facility] Comment on above: Result Comment: Fast ing Glucose result from 100 to 125 mg/dLsuggests IMPAIRED HOMEOSTASIS per A.D.A. criteria. Performed By: #### L 500.2500, L100.0100, L500.4100 ####[facility] [address] [place], [address] Potassium [Moles/Vol] 3.7 mmol/L Normal 3.5-5.1 [facility] Comment on above: Performed By: #### L 500.2500, L100.0100, L500.4100 ####[facility] [address] [place], [address] Sodium [Moles/Vol] 142 mmol/L Normal 136-145 [facility] Comment on above: Performed By: #### L 500.2500, L100.0100, L500.4100 ####[facility] [address] [place], [address] Urea nitrogen [Mass/Vol] 9 mg/dL Normal 7-18 [facility] Comment on above: Performed By: #### L 500.2500, L100.0100, L500.4100 ####[facility] [address] [place], [address] Basophil percentageOrdered B y: Mukul Franco on 08-15-2023 Cholesterol [Mass/Vol] 146 mg/dL Normal 200 [facility] Comment on above: <200 mg/dL Desirable 200-240 mg/dL Borderline >240 mg/dL High Risk Result Comment: <200 mg/dL Desirable 200-240 mg/dL Borderline >240 mg/dL High Risk Performed By: #### L 500.2500, L100.0100, L500.4100 ####[facility] [address] [place], [address] Triglyceride [Mass/Vol] 73 mg/dL Normal [facility] Comment on above: The drugs N-Acetylcy steine and Metamizole may falsely depress this assay.Serum Triglycerides Reference Interval Normal <150 mg/dL Borderline high 150 - 199 mg/dL High 200 - 499 mg/dL Very High > or = 500 mg/dL Result Comment: The drugs N-Acetylcysteine and Metamizole may falselydepress this assay.Serum Triglycerides Reference Interval Normal <150 mg/dL Borderline high 150 - 199 mg/dL High 200 - 499 mg/dL Very High > or = 500 mg/dL Performed By: #### L 500.2500, L100.0100, L500.4100 ####[facility] [address] [place], [address] CBC W/Diff, Automatedon 07-28 Absolute Lymph 1.54 X10 3/uL Normal 0.83-4.51 [facility] Comment on above: Performed By: #### L 500.2500, L100.0100, L500.4100 ####[facility] [address] [place], [address] Absolute Neut 4.2 X10 3/uL Normal 2.0-7.7 [facility] Comment on above: Performed By: #### L 500.2500, L100.0100, L500.4100 ####[facility] [address] [place], [address] Basophils/100 WBC (Bld) 0.8 % Normal 0-1 [facility] Comment on above: Performed By: #### L 500.2500, L100.0100, L500.4100 ####[facility] [address] [place], [address] Eosinophils/100 WBC (Bld) 1.4 % Normal 0-5 [facility] Comment on above: Performed By: #### L 500.2500, L100.0100, L500.4100 ####[facility] [address] [place], [address] Erythrocyte distribution width (RBC) [Ratio] 13.8 % Normal 11.6-14.6 [facility] Comment on above: Performed By: #### L 500.2500, L100.0100, L500.4100 ####[facility] [address] [place], [address] Hematocrit (Bld) [Volume fraction] 33.3 % Low 37-47 [facility] Comment on above: Performed By: #### L 500.2500, L100.0100, L500.4100 ####[facility] [address] [place], [address] Hemoglobin (Bld) [Mass/Vol] 10.9 g/dL Low 12.0-15.0 [facility] Comment on above: Performed By: #### L 500.2500, L100.0100, L500.4100 ####[facility] [address] [place], [address] IG% 0.300 Normal 0.0-0.9 [facility] Comment on above: Result Comment: IG% - Immature Granulocytes (promyelocytes, myelocytes andmetamyelocytes) > 1% indicates that a LEFT SHIFT is Present. Performed By: #### L 500.2500, L100.0100, L500.4100 ####[facility] [address] [place], [address] Lymphocytes/100 WBC (Bld) 24.4 % Normal 19-41 [facility] Comment on above: Performed By: #### L 500.2500, L100.0100, L500.4100 ####[facility] [address] [place], [address] MCH (RBC) [Entitic mass] 30.4 pg Normal 27.0-32.0 [facility] Comment on above: Performed By: #### L 500.2500, L100.0100, L500.4100 ####[facility] [address] [place], [address] MCHC (RBC) [Mass/Vol] 32.7 g/dL Normal 32-36 [facility] Comment on above: Performed By: #### L 500.2500, L100.0100, L500.4100 ####[facility] [address] [place], [address] MCV (RBC) [Entitic vol] 92.8 fL Normal 81-99 [facility] Comment on above: Performed By: #### L 500.2500, L100.0100, L500.4100 ####[facility] [address] [place], [address] Monocytes/100 WBC (Bld) 6.2 % Normal 0-10 [facility] Comment on above: Performed By: #### L 500.2500, L100.0100, L500.4100 ####[facility] [address] [place], [address] Neutrophils/100 WBC (Bld) 66.9 % Normal 47-70 [facility] Comment on above: Performed By: #### L 500.2500, L100.0100, L500.4100 ####[facility] [address] [place], [address] Nucleated RBC (Bld) [#/Vol] 0 10*3/uL Normal 0-5 [facility] Comment on above: Performed By: #### L 500.2500, L100.0100, L500.4100 ####[facility] [address] [place], [address] Platelet mean volume (Bld) [Entitic vol] 9.2 fL Normal 6.2-12.0 [facility] Comment on above: Performed By: #### L 500.2500, L100.0100, L500.4100 ####[facility] [address] [place], [address] Platelets (Bld) [#/Vol] 419 10*3/uL Normal 150-450 [facility] Comment on above: Performed By: #### L 500.2500, L100.0100, L500.4100 ####[facility] [address] [place], [address] RBC (Bld) [#/Vol] 3.59 10*6/uL Low 4.2-5.4 [facility] Comment on above: Performed By: #### L 500.2500, L100.0100, L500.4100 ####[facility] [address] [place], [address] RDW SD 47.6 fl High 35.1-43.9 [facility] Comment on above: Performed By: #### L 500.2500, L100.0100, L500.4100 ####[facility] [address] [place], [address] WBC (Bld) [#/Vol] 6.3 10*3/uL Normal 4.4-11.0 [facility] Comment on above: Performed By: #### L 500.2500, L100.0100, L500.4100 ####[facility] [address] [place], [address] High density lipoprotein (HD L) measurementOrdered By: Mukul Franco on 08-15-2023 Cholesterol in HDL (Body fld) [Mass/Vol] 49 mg/dL >40 [facility] Comment on above: The drugs N-Acetylcy steine and Metamizole may falsely depress this assay. Reference Range HDL <40 mg/dL Low HDL Cholesterol HDL >or= 60 mg/dL High HDL Cholesterol Lipid Profileon 08-15-2023 Cholesterol in HDL [Mass/Vol] 49 mg/dL Normal [facility] Comment on above: Result Comment: The drugs N-Acetylcysteine and Metamizole may falselydepress this assay. Reference Range HDL <40 mg/dL Low HDL Cholesterol HDL >or= 60 mg/dL High HDL Cholesterol Performed By: #### L 500.2500, L100.0100, L500.4100 ####[facility] [address] [place], [address] Cholesterol in LDL [Mass/Vol] 82 mg/dL Normal 0-130 [facility] Comment on above: Performed By: #### L 500.2500, L100.0100, L500.4100 ####[facility] [address] [place], [address] Cholesterol in VLDL [Mass/Vol] 15 mg/dL Normal 5-40 [facility] Comment on above: Performed By: #### L 500.2500, L100.0100, L500.4100 ####[facility] [address] [place], [address] Low density lipoprotein (LDL ) cholesterol measurementOrdered By: Mukul Franco on 08-15-2023 Cholesterol in LDL (Body fld) [Moles/Vol] 82 mg/dL 0-130 [facility] MR/CON.PCM.NEon 08-15-2023 MR/CON.PCM.NE Normal [facility] Urine Cultureon 08-15-2023 URC Culture exhibits no growth. Normal [facility] Comment on above: Performed By: #### M 100.2200 ####[facility] [address] [place], [place], [address] Very low density lipoprotein (VLDL) cholesterol measurementOrdered By: Mukul Franco on 08-15-2023 Cholesterol in VLDL Calc [Moles/Vol] 15 mg/dL 5-40 [facility] 12 Lead EKGon 08-14-2023 12 Lead EKG Normal [facility] Absolute lymphocyte countOrd ered By: Princess Bowling on 08-14-2023 Lymphocytes Auto (Unsp spec) [#/Vol] 1.33 10*3/uL 0.83-4.51 [facility] Activated partial thrombopla stin time (aPTT) in platelet poor plasma by coagulation aOrdered By: Princess Bowling on 08-14-2023 aPTT Coag (PPP) [Time] 29.5 s 24.1-36.2 [facility] Automated lymphocyte count a s percentage of total leukocytesOrdered By: Princess Bowling on 08-14-2023 Lymphocytes/100 WBC Auto (Unsp spec) 14.2 % 19-41 [facility] Basic Metabolic Profile (BMP )on 08-14-2023 BUN/CRE 14.7 RATIO Normal 10-20 [facility] Comment on above: Performed By: #### L 501.3620, L300.4310, L300.3900, L500.2500, L100.0100 ####[facility] [address] [place], [place], [address] CA,Total 9.1 mg/dL Normal 8.5-10.1 [facility] Comment on above: Performed By: #### L 501.3620, L300.4310, L300.3900, L500.2500, L100.0100 ####[facility] [address] [place], [place], [address] Chloride [Moles/Vol] 108 mmol/L High 98-107 [facility] Comment on above: Performed By: #### L 501.3620, L300.4310, L300.3900, L500.2500, L100.0100 ####[facility] [address] [place], [address] CO2 [Moles/Vol] 32.0 mmol/L Normal 21.0-32.0 [facility] Comment on above: Performed By: #### L 501.3620, L300.4310, L300.3900, L500.2500, L100.0100 ####[facility] [address] [place], [address] Creatinine [Mass/Vol] 1.02 mg/dL Normal 0.55-1.02 [facility] Comment on above: Result Comment: The validity of the calculated GFR GFRAA in patients over70 years has not been determined. Clinical correlation isessential. Performed By: #### L 501.3620, L300.4310, L300.3900, L500.2500, L100.0100 ####[facility] [address] [place], [address] ECRCL 37.99 ml/min Normal [facility] Comment on above: Performed By: #### L 501.3620, L300.4310, L300.3900, L500.2500, L100.0100 ####[facility] [address] [place], [address] EST GFR - AA 66 mL/min Normal >60 [facility] Comment on above: Result Comment: Afri can [place] GFR Calc Performed By: #### L 501.3620, L300.4310, L300.3900, L500.2500, L100.0100 ####[facility] [address] [place], [address] GAP 3 Low 5-15 [facility] Comment on above: Performed By: #### L 501.3620, L300.4310, L300.3900, L500.2500, L100.0100 ####[facility] [address] [place], [address] GFR/1.73 sq M.predicted among non-blacks MDRD (S/P/Bld) [Vol rate/Area] 55 mL/min/{1.73_m2} Low >60 [facility] Comment on above: Result Comment: Non- GFR Calc Performed By: #### L 501.3620, L300.4310, L300.3900, L500.2500, L100.0100 ####[facility] [address] [place], [address] Glucose [Mass/Vol] 118 mg/dL High 74-106 [facility] Comment on above: Result Comment: Fast ing Glucose result from 100 to 125 mg/dLsuggests IMPAIRED HOMEOSTASIS per A.D.A. criteria. Performed By: #### L 501.3620, L300.4310, L300.3900, L500.2500, L100.0100 ####[facility] [address] [place], [address] Potassium [Moles/Vol] 3.9 mmol/L Normal 3.5-5.1 [facility] Comment on above: Performed By: #### L 501.3620, L300.4310, L300.3900, L500.2500, L100.0100 ####[facility] [address] [place], [address] Sodium [Moles/Vol] 143 mmol/L Normal 136-145 [facility] Comment on above: Performed By: #### L 501.3620, L300.4310, L300.3900, L500.2500, L100.0100 ####[facility] [address] [place], [address] Urea nitrogen [Mass/Vol] 15 mg/dL Normal 7-18 [facility] Comment on above: Performed By: #### L 501.3620, L300.4310, L300.3900, L500.2500, L100.0100 ####[facility] [address] [place], [address] Basophil percentageOrdered B y: Princess Bowling on 08-14-2023 Basophil percentage 10-25 SEEN /hpf 0-5 [facility] Basophils/100 WBC (Bld) 0.4 % 0-1 [facility] Chloride [Moles/Vol] 108 mmol/L 98-107 [facility] Eosinophils/100 WBC (Bld) 0.4 % 0-5 [facility] Glucose [Mass/Vol] 118 mg/dL 74-106 [facility] Comment on above: Fasting Glucose resu lt from 100 to 125 mg/dL suggests IMPAIRED HOMEOSTASIS per A.D.A. criteria. Hemoglobin (Bld) [Mass/Vol] 12.2 g/dL 12.0-15.0 [facility] Monocytes/100 WBC (Bld) 5.9 % 0-10 [facility] Neutrophils (Bld) [#/Vol] 7.4 10*3/uL 2.0-7.7 [facility] Neutrophils/100 WBC (Bld) 78.9 % 47-70 [facility] Potassium [Moles/Vol] 3.9 mmol/L 3.5-5.1 [facility] Sodium [Moles/Vol] 143 mmol/L 136-145 [facility] WBC (Bld) [#/Vol] 9.3 10*3/uL 4.4-11.0 [facility] Bilirubin Test strip Ql (U)O rdered By: Princess Bowling on 08-14-2023 Bilirubin Ql (U) Negative Negative [facility] Brain without Contraston Brain without Contrast Normal [facility] Brain/Head without Contrasto n 08-14-2023 Brain/Head without Contrast Normal [facility] CBC W/Diff, Automatedon 07-28 Absolute Lymph 1.33 X10 3/uL Normal 0.83-4.51 [facility] Comment on above: Performed By: #### L 501.3620, L300.4310, L300.3900, L500.2500, L100.0100 ####[facility] [address] [place], [address] Absolute Neut 7.4 X10 3/uL Normal 2.0-7.7 [facility] Comment on above: Performed By: #### L 501.3620, L300.4310, L300.3900, L500.2500, L100.0100 ####[facility] [address] [place], [address] Basophils/100 WBC (Bld) 0.4 % Normal 0-1 [facility] Comment on above: Performed By: #### L 501.3620, L300.4310, L300.3900, L500.2500, L100.0100 ####[facility] [address] [place], [address] Eosinophils/100 WBC (Bld) 0.4 % Normal 0-5 [facility] Comment on above: Performed By: #### L 501.3620, L300.4310, L300.3900, L500.2500, L100.0100 ####[facility] [address] [place], [address] Erythrocyte distribution width (RBC) [Ratio] 13.5 % Normal 11.6-14.6 [facility] Comment on above: Performed By: #### L 501.3620, L300.4310, L300.3900, L500.2500, L100.0100 ####[facility] [address] [place], [address] Hematocrit (Bld) [Volume fraction] 38.4 % Normal 37-47 [facility] Comment on above: Performed By: #### L 501.3620, L300.4310, L300.3900, L500.2500, L100.0100 ####[facility] [address] [place], [address] Hemoglobin (Bld) [Mass/Vol] 12.2 g/dL Normal 12.0-15.0 [facility] Comment on above: Performed By: #### L 501.3620, L300.4310, L300.3900, L500.2500, L100.0100 ####[facility] [address] [place], [address] IG% 0.200 Normal 0.0-0.9 [facility] Comment on above: Result Comment: IG% - Immature Granulocytes (promyelocytes, myelocytes andmetamyelocytes) > 1% indicates that a LEFT SHIFT is Present. Performed By: #### L 501.3620, L300.4310, L300.3900, L500.2500, L100.0100 ####[facility] [address] [place], [address] Lymphocytes/100 WBC (Bld) 14.2 % Low 19-41 [facility] Comment on above: Performed By: #### L 501.3620, L300.4310, L300.3900, L500.2500, L100.0100 ####[facility] [address] [place], [address] MCH (RBC) [Entitic mass] 29.8 pg Normal 27.0-32.0 [facility] Comment on above: Performed By: #### L 501.3620, L300.4310, L300.3900, L500.2500, L100.0100 ####[facility] [address] [place], [address] MCHC (RBC) [Mass/Vol] 31.8 g/dL Low 32-36 [facility] Comment on above: Performed By: #### L 501.3620, L300.4310, L300.3900, L500.2500, L100.0100 ####[facility] [address] [place], [address] MCV (RBC) [Entitic vol] 93.9 fL Normal 81-99 [facility] Comment on above: Performed By: #### L 501.3620, L300.4310, L300.3900, L500.2500, L100.0100 ####[facility] [address] [place], [address] Monocytes/100 WBC (Bld) 5.9 % Normal 0-10 [facility] Comment on above: Performed By: #### L 501.3620, L300.4310, L300.3900, L500.2500, L100.0100 ####[facility] [address] [place], [address] Neutrophils/100 WBC (Bld) 78.9 % High 47-70 [facility] Comment on above: Performed By: #### L 501.3620, L300.4310, L300.3900, L500.2500, L100.0100 ####[facility] [address] [place], [address] Nucleated RBC (Bld) [#/Vol] 0 10*3/uL Normal 0-5 [facility] Comment on above: Performed By: #### L 501.3620, L300.4310, L300.3900, L500.2500, L100.0100 ####[facility] [address] [place], [address] Platelet mean volume (Bld) [Entitic vol] 9.3 fL Normal 6.2-12.0 [facility] Comment on above: Performed By: #### L 501.3620, L300.4310, L300.3900, L500.2500, L100.0100 ####[facility] [address] [place], [address] Platelets (Bld) [#/Vol] 498 10*3/uL High 150-450 [facility] Comment on above: Performed By: #### L 501.3620, L300.4310, L300.3900, L500.2500, L100.0100 ####[facility] [address] [place], [address] RBC (Bld) [#/Vol] 4.09 10*6/uL Low 4.2-5.4 [facility] Comment on above: Performed By: #### L 501.3620, L300.4310, L300.3900, L500.2500, L100.0100 ####[facility] [address] [place], [address] RDW SD 46.2 fl High 35.1-43.9 [facility] Comment on above: Performed By: #### L 501.3620, L300.4310, L300.3900, L500.2500, L100.0100 ####[facility] [address] [place], [address] WBC (Bld) [#/Vol] 9.3 10*3/uL Normal 4.4-11.0 [facility] Comment on above: Performed By: #### L 501.3620, L300.4310, L300.3900, L500.2500, L100.0100 ####[facility] [address] [place], [address] CPK Total, Creatine Kinaseon 08-14-2023 CPK TOTAL 581 U/L High 26-192 [facility] Comment on above: Performed By: #### L 501.3620, L300.4310, L300.3900, L500.2500, L100.0100 ####[facility] [address] [place], [address] CTA Head W/WO Contraston CTA Head W/WO Contrast Normal [facility] Chest 1 View (Portable)on Chest 1 View (Portable) Normal [facility] Culture, urineOrdered By: Lm Bowling on 08-14-2023 Bacteria identified Cx Nom (U) Culture exhibits no growth. [facility] Determination of erythrocyte mean corpuscular volume (MCV)Ordered By: Princess Bowling on 08-14-2023 MCV (RBC) [Entitic vol] 93.9 fL 81-99 [facility] Emergency Department Summary on 08-14-2023 Emergency Department Summary Normal [facility] Erythrocyte distribution wid th ratioOrdered By: Princess Bowling on 08-14-2023 Erythrocyte distribution width (RBC) [Ratio] 13.5 % 11.6-14.6 [facility] Erythrocyte distribution wid th standard deviationOrdered By: Princess Bowling on 08-14-2023 Erythrocyte distribution width (RBC) [Entitic vol] 46.2 fL 35.1-43.9 [facility] H AND P Exam - Hospitaliston 08-14-2023 H&P Exam - Hospitalist Normal [facility] Hematocrit Auto (Bld) [Volum e fraction]Ordered By: Princess Bowling on 08-14-2023 Hematocrit (Bld) [Volume fraction] 38.4 % 37-47 [facility] Immature granulocytes/100 WB C Auto (Bld)Ordered By: Princess Bowling on 08-14-2023 Immature granulocytes/100 WBC (Bld) 0.200 % 0.0-0.9 [facility] Comment on above: IG% - Immature Granu locytes (promyelocytes, myelocytes and metamyelocytes) > 1% indicates that a LEFT SHIFT is Present. International normalized rat io (INR) calculationOrdered By: Princess Bowling on 08-14-2023 INR Coag (PPP) [Relative time] 1.2 {INR} [facility] Ketones Test strip Ql (U)Ord ered By: Princess Bowling on 08-14-2023 Ketones Ql (U) Negative Negative [facility] - Chemistry and C hemistry - challengeOrdered By: Princess Bowling on 08-14-2023 CK [Catalytic activity/Vol] 581 U/L 26-192 [facility] CO2 [Moles/Vol] 32.0 mmol/L 21.0-32.0 [facility] Urea nitrogen/Creatinine [Mass ratio] 14.7 mg/mg 10-20 [facility] - CoagulationOrde red By: Princess Bowling on 08-14-2023 PT Coag (PPP) [Time] 15.1 s 11.7-14.9 [facility] - Hematology and Cell countsOrdered By: Princess Bowling on 08-14-2023 MCH (RBC) [Entitic mass] 29.8 pg 27.0-32.0 [facility] MCHC (RBC) [Mass/Vol] 31.8 g/dL 32-36 [facility] Nucleated RBC/100 WBC (Bld) [Ratio] 0 % 0-5 [facility] Platelets (Bld) [#/Vol] 498 10*3/uL 150-450 [facility] Mucus LM Ql (Urine sed)Order ed By: Princess Bowling on 08-14-2023 Mucus Ql (Urine sed) 0 SEEN /hpf [facility] Nitrite Test strip Ql (U)Ord ered By: Princess Bowling on 08-14-2023 Nitrite Ql (U) Negative Negative [facility] No Panel InformationOrdered By: Princess Bowling on 08-14-2023 Urine RBC 0 SEEN /hpf 0-5 [facility] Estimated Creatinine Clearance Calc 37.99 ml/min [facility] Estimated GFR (MDRD) Amer 66 mL/min >60 [facility] Comment on above: GFR Calc Estimated GFR (MDRD) Non-Af Amer 55 mL/min >60 [facility] Comment on above: Non- GFR Calc Partial Thromboplast Timeon 08-14-2023 aPTT Coag (Bld) [Time] 29.5 s Normal 24.1-36.2 [facility] Comment on above: Performed By: #### L 501.9150, L300.4310, L300.3900, L500.2500, L100.0100 ####[facility] [address] [place], [address] Platelet mean volume Tomás-Ec ker (Bld) [Entitic vol]Ordered By: Princess Bowling on 08-14-2023 Platelet mean volume (Bld) [Entitic vol] 9.3 fL 6.2-12.0 [facility] Protein Test strip Ql (U)Ord ered By: Princess Bowling on 08-14-2023 Protein Ql (U) Negative Negative [facility] Prothrombin Time w/INRon INR Coag (PPP) [Relative time] 1.2 {INR} Normal [facility] Comment on above: Performed By: #### L 501.3620, L300.4310, L300.3900, L500.2500, L100.0100 ####[facility] [address] [place], [address] PT Coag (PPP) [Time] 15.1 s High 11.7-14.9 [facility] Comment on above: Performed By: #### L 501.3620, L300.4310, L300.3900, L500.2500, L100.0100 ####[facility] [address] [place], [place], [address] RBC Auto (Bld) [#/Vol]Ordere d By: Princess Bowling on 08-14-2023 RBC (Bld) [#/Vol] 4.09 10*6/uL 4.2-5.4 [facility] Serum or plasma calcium eder urement (mass/volume)Ordered By: Princess Bowling on 08-14-2023 Calcium [Mass/Vol] 9.1 mg/dL 8.5-10.1 [facility] Serum or plasma creatinine m easurement (mass/volume)Ordered By: Princess Bowling on 08-14-2023 Creatinine [Mass/Vol] 1.02 mg/dL 0.55-1.02 [facility] Comment on above: The validity of the calculated GFR & GFRAA in patients over 70 years has not been determined. Clinical correlation is essential. Serum or plasma urea nitroge n measurement (mass/volume)Ordered By: Princess Bowling on 08-14-2023 Urea nitrogen [Mass/Vol] 15 mg/dL -18 [facility] Squamous epithelial cells de tection in urine sediment by light microscopyOrdered By: Princess Bowling on 08-14-2023 Epithelial cells.squamous LM Ql (Urine sed) 5-10 SEEN /hpf 5-10 [facility] Thin prep Papanicolaou smear with manual screeningOrdered By: Princess Bowling on 08-14-2023 Thin prep Papanicolaou smear with manual screening 3 5-15 [facility] Urinalysis, Completeon 08-14 BACTERIA 2+ /hpf Normal None Seen [facility] Comment on above: Order Comment: CLEAN CATCH Performed By: #### L 400.0001 ####[facility] [address] [place], [address] EPI,SQUAMOUS 5-10 SEEN Normal 5-10 [facility] Comment on above: Order Comment: CLEAN CATCH Performed By: #### L 400.0001 ####[facility] [address] [place], [address] WBC 10-25 SEEN Normal 0-5 [facility] Comment on above: Order Comment: CLEAN CATCH Performed By: #### L 400.0001 ####[facility] [address] [place], [address] Mucus Ql (Urine sed) 0 SEEN Normal [facility] Comment on above: Order Comment: CLEAN CATCH Performed By: #### L 400.0001 ####[facility] [address] [place], [address] RBC 0 SEEN Normal 0-5 [facility] Comment on above: Order Comment: CLEAN CATCH Performed By: #### L 400.0001 ####[facility] [address] [place], [address] Urine blood detectionOrdered By: Princess Bowling on 08-14-2023 RBC Ql (U) Negative Negative [facility] Urine clarityOrdered By: Harper Bowling on 08-14-2023 Clarity (U) Sl. Cloudy Clear [facility] Urine color determinationOrd ered By: Princess Bowling on 08-14-2023 Color (U) Straw Yellow [facility] Urine glucose detectionOrder ed By: Princess Bowling on 08-14-2023 Glucose Ql (U) Normal mg/dl Normal [facility] Urine leukocyte esterase det ection by dipstickOrdered By: Princess Bowling on 08-14-2023 Leukocyte esterase Test strip Ql (U) 500 /ul Negative [facility] Urine pHOrdered By: Princess chowdhury on 08-14-2023 pH (U) 8.0 [pH] 5.0 - 8.0 [facility] Urine sediment bacteria coun t by microscopy (number/high power field)Ordered By: Princess Bowling on 08-14-2023 Bacteria LM.HPF (Urine sed) [#/Area] 2 /[HPF] None Seen [facility] Urine specific gravity measu rementOrdered By: Princess Bowling on 08-14-2023 Specific gravity (U) [Rel density] 1.015 1.002-1.030 [facility] Urine urobilinogen measureme ntOrdered By: Princess Bowling on 08-14-2023 Urobilinogen Ql (U) Normal mg/dl Normal [facility] Urgent Care Visit Reporton 0 07-29-2023 Urgent Care Visit Report Normal [facility] CBC panel Auto (Bld)on 06-16 Erythrocyte distribution width (RBC) [Ratio] 13.4 % 11.5 - 15.0 % [facility] Hematocrit (Bld) [Volume fraction] 38.8 % 36.0 - 46.0 % [facility] Hemoglobin (Bld) [Mass/Vol] 12.4 g/dL 11.5 - 15.5 g/dL [facility] MCH (RBC) [Entitic mass] 30.4 pg 26.0 - 34.0 pg [facility] MCHC (RBC) [Mass/Vol] 32.0 g/dL 30.5 - 36.0 g/dL [facility] MCV (RBC) [Entitic vol] 95.1 fL 80.0 - 100.0 fL [facility] Nucleated RBC (Bld) [#/Vol] <0.01 k/uL [facility] Platelet mean volume (Bld) [Entitic vol] 11.0 fL 9.0 - 12.7 fL [facility] Platelets (Bld) [#/Vol] 261 10*3/uL 150 - 400 k/uL [facility] RBC (Bld) [#/Vol] 4.08 10*6/uL 3.90 - 5.2 0 m/uL [facility] WBC (Bld) [#/Vol] 8.23 10*3/uL 3.70 - 11. 00 k/uL [facility] Erythrocyte distribution width (RBC) [Ratio] 13.4 % Normal 11.5-15.0 [facility] Comment on above: Order Comment: Speci men Type: BLOOD SPECIMEN Ordering Facility: [facility] Address: [address] [place] [address] Performed By: #### 5 8410-2 #### [facility] CLIA [id number] [address] Hematocrit (Bld) [Volume fraction] 38.8 % Normal 36.0-46.0 [facility] Comment on above: Order Comment: Amandai men Type: BLOOD SPECIMEN Ordering Facility: [facility] Address: [address] [place] [address] Performed By: #### 5 8410-2 #### [facility] CLIA [id number] [address] [place] Hemoglobin (Bld) [Mass/Vol] 12.4 g/dL Normal 11.5-15.5 [facility] Comment on above: Order Comment: Speci men Type: BLOOD SPECIMEN Ordering Facility: [facility] Address: [address] [place] [address] Performed By: #### 5 8410-2 #### [facility] CLIA [id number] [address] MCH (RBC) [Entitic mass] 30.4 pg Normal 26.0-34.0 [facility] Comment on above: Order Comment: Speci men Type: BLOOD SPECIMEN Ordering Facility: [facility] Address: [address] [place] [address] Performed By: #### 5 8410-2 #### [facility] CLIA [id number] [address] MCHC (RBC) [Mass/Vol] 32.0 g/dL Normal 30.5-36.0 [facility] Comment on above: Order Comment: Speci men Type: BLOOD SPECIMEN Ordering Facility: [facility] Address: [address] [place] [address] Performed By: #### 5 8410-2 #### [facility] CLIA [id number] [address] [place] MCV (RBC) [Entitic vol] 95.1 fL Normal 80.0-100.0 [facility] Comment on above: Order Comment: Speci men Type: BLOOD SPECIMEN Ordering Facility: [facility] Address: [address] [place] [address] Performed By: #### 5 8410-2 #### [facility] CLIA [id number] [address] [place] Nucleated RBC (Bld) [#/Vol] 10*3/uL Normal <0.01 [facility] Comment on above: Order Comment: Speci men Type: BLOOD SPECIMEN Ordering Facility: [facility] Address: [address] [place] [address] Performed By: #### 5 8410-2 #### [facility] CLIA [id number] [address] [place] Platelet mean volume (Bld) [Entitic vol] 11.0 fL Normal 9.0-12.7 [facility] Comment on above: Order Comment: Speci men Type: BLOOD SPECIMEN Ordering Facility: [facility] Address: [address] [place] [address] Performed By: #### 5 8410-2 #### [facility] CLIA [id number] [address] [place] [address] [place] Platelets (Bld) [#/Vol] 261 10*3/uL Normal 150-400 [facility] Comment on above: Order Comment: Speci men Type: BLOOD SPECIMEN Ordering Facility: [facility] Address: [address] [place] [address] Performed By: #### 5 8410-2 #### [facility] CLIA [id number] [address] [place] [address] [place] RBC (Bld) [#/Vol] 4.08 10*6/uL Normal 3.90-5.20 [facility] Comment on above: Order Comment: Speci men Type: BLOOD SPECIMEN Ordering Facility: [facility] Address: [address] [place] [address] Performed By: #### 5 8410-2 #### [facility] CLIA [id number] [address] [place] [address] [place] WBC (Bld) [#/Vol] 8.23 10*3/uL Normal 3.70-11.00 [facility] Comment on above: Order Comment: Speci men Type: BLOOD SPECIMEN Ordering Facility: [facility] Address: [address] [place] [address] Performed By: #### 5 8410-2 #### [facility] CLIA [id number] [address] [place] [address] [place] Basic metabolic 2000 panelon 06-12-2023 Anion gap [Moles/Vol] 9 mmol/L Normal 9-18 [facility] Comment on above: Order Comment: Speci men Type: BLOOD SPECIMEN Ordering Facility: [facility] Address: [address] [place] [address] Performed By: #### 2 4321-2 #### [facility] CLIA [id number] [address] [place] [address] [place] Calcium [Mass/Vol] 8.6 mg/dL Normal 8.5-10.2 [facility] Comment on above: Order Comment: Speci men Type: BLOOD SPECIMEN Ordering Facility: [facility] Address: [address] [place] [address] Performed By: #### 2 4321-2 #### [facility] CLIA [id number] [address] [place] [address] [place] Chloride [Moles/Vol] 106 mmol/L High 97-105 [facility] Comment on above: Order Comment: Speci men Type: BLOOD SPECIMEN Ordering Facility: [facility] Address: [address] [place] [address] Performed By: #### 2 4321-2 #### [facility] CLIA [id number] [address] [place] [address] [place] CO2 [Moles/Vol] 27 mmol/L Normal 22-30 [facility] Comment on above: Order Comment: Speci men Type: BLOOD SPECIMEN Ordering Facility: [facility] Address: [address] [place] [address] Performed By: #### 2 4321-2 #### [facility] CLIA [id number] [address] [place] [address] [place] Creatinine [Mass/Vol] 0.91 mg/dL Normal 0.58-0.96 [facility] Comment on above: Order Comment: Amandai men Type: BLOOD SPECIMEN Ordering Facility: [facility] Address: [address] [place] [address] Performed By: #### 2 4321-2 #### [facility] CLIA [id number] [address] [place] [address] [place] Estimated Glomerular Filtration Rate 62 mL/min/1.73m >=60 mL/min/1.73m [facility] Glucose [Mass/Vol] 94 mg/dL Normal 74-99 [facility] Comment on above: Order Comment: Amandai men Type: BLOOD SPECIMEN Ordering Facility: [facility] Address: [address] [place] [address] Result Comment: The [place] Diabetes [employer] (ADA) provides guidance for cutoff values for fasting glucose and random glucose. The ADA defines fasting as no caloric intake for at least 8 hours. Fasting plasma glucose results between 100 to 125 mg/dL indicate increased risk for diabetes (prediabetes). Fasting plasma glucose results greater than or equal to 126 mg/dL meet the criteria for diagnosis of diabetes. In the absence of unequivocal hyperglycemia, results should be confirmed by repeat testing. In a patient with classic symptoms of hyperglycemia or hyperglycemic crisis, random plasma glucose results greater than or equal to 200 mg/dL meet the criteria for diagnosis of diabetes. Reference: Standards of Medical Care in Diabetes 2016, [place] [employer]. Diabetes Care. 2016.39(Suppl 1). Performed By: #### 2 4321-2 #### [facility] CLIA [id number] [address] [place] Potassium [Moles/Vol] 4.1 mmol/L Normal 3.7-5.1 [facility] Comment on above: Order Comment: Speci men Type: BLOOD SPECIMEN Ordering Facility: [facility] Address: [address] [place] [address] Performed By: #### 2 4321-2 #### [facility] CLIA [id number] [address] [place] Sodium [Moles/Vol] 142 mmol/L Normal 136-144 [facility] Comment on above: Order Comment: Speci men Type: BLOOD SPECIMEN Ordering Facility: [facility] Address: [address] [place] [address] Performed By: #### 2 4321-2 #### [facility] CLIA [id number] [address] [place] Urea nitrogen [Mass/Vol] 13 mg/dL Normal 7-21 [facility] Comment on above: Order Comment: Speci men Type: BLOOD SPECIMEN Ordering Facility: [facility] Address: [address] [place] [address] Performed By: #### 2 4321-2 #### [facility] CLIA [id number] [address] Creatinine and Glomerular filtration rate.predicted panel (S/P/Bld) 62 mL/min/1.73m??? Normal >=60 [facility] Comment on above: Order Comment: Specjamar men Type: BLOOD SPECIMEN Ordering Facility: [facility] Address: [address] [place] [address] Result Comment: Carmen mated Glomerular Filtration Rate (eGFR) is calculated using the 2020 CKD-EPI creatinine equation. This equation utilizes serum creatinine, sex, and age as parameters. The creatinine assay has traceable calibration to isotope dilution-mass spectrometry. Refer to KDIGO guidelines for clinical interpretation. In patients with unstable renal function, e.g. those with acute kidney injury, the eGFR may not accurately reflect actual GFR. Performed By: #### 2 4321-2 #### [facility] CLIA [id number] [address] CBC panel Auto (Bld)on 06-12 Erythrocyte distribution width (RBC) [Ratio] 13.3 % Normal 11.5-15.0 [facility] Comment on above: Order Comment: Speci men Type: BLOOD SPECIMEN Ordering Facility: [facility] Address: [address] [place] [address] Performed By: #### 5 8410-2 #### [facility] CLIA [id number] [address] Hematocrit (Bld) [Volume fraction] 38.6 % Normal 36.0-46.0 [facility] Comment on above: Order Comment: Speci men Type: BLOOD SPECIMEN Ordering Facility: [facility] Address: [address] [place] [address] Performed By: #### 5 8410-2 #### [facility] CLIA [id number] [address] Hemoglobin (Bld) [Mass/Vol] 12.5 g/dL Normal 11.5-15.5 [facility] Comment on above: Order Comment: Speci men Type: BLOOD SPECIMEN Ordering Facility: [facility] Address: [address] [place] [address] Performed By: #### 5 8410-2 #### [facility] CLIA [id number] [address] MCH (RBC) [Entitic mass] 30.5 pg Normal 26.0-34.0 [facility] Comment on above: Order Comment: Speci men Type: BLOOD SPECIMEN Ordering Facility: [facility] Address: [address] [place] [address] Performed By: #### 5 8410-2 #### [facility] CLIA [id number] [address] [place] [facility] MCHC (RBC) [Mass/Vol] 32.4 g/dL Normal 30.5-36.0 [facility] Comment on above: Order Comment: Speci men Type: BLOOD SPECIMEN Ordering Facility: [facility] Address: [address] [place] [address] Performed By: #### 5 8410-2 #### [facility] CLIA [id number] [address] [place] [address] [place] MCV (RBC) [Entitic vol] 94.1 fL Normal 80.0-100.0 [facility] Comment on above: Order Comment: Speci men Type: BLOOD SPECIMEN Ordering Facility: [facility] Address: [address] [place] [address] Performed By: #### 5 8410-2 #### [facility] CLIA [id number] [address] [place] [address] [place] Nucleated RBC (Bld) [#/Vol] <0.01 k/uL [facility] Platelet mean volume (Bld) [Entitic vol] 10.9 fL Normal 9.0-12.7 [facility] Comment on above: Order Comment: Speci men Type: BLOOD SPECIMEN Ordering Facility: [facility] Address: [address] [place] [address] Performed By: #### 5 8410-2 #### [facility] CLIA [id number] [address] [place] [address] [place] Platelets (Bld) [#/Vol] 253 10*3/uL Normal 150-400 [facility] Comment on above: Order Comment: Speci men Type: BLOOD SPECIMEN Ordering Facility: [facility] Address: [address] [place] [address] Performed By: #### 5 8410-2 #### [facility] CLIA [id number] [address] [place] [address] [place] RBC (Bld) [#/Vol] 4.10 10*6/uL Normal 3.90-5.20 [facility] Comment on above: Order Comment: Speci men Type: BLOOD SPECIMEN Ordering Facility: [facility] Address: [address] [place] [address] Performed By: #### 5 8410-2 #### [facility] CLIA [id number] [address] [place] [address] [place] WBC (Bld) [#/Vol] 9.31 10*3/uL Normal 3.70-11.00 [facility] Comment on above: Order Comment: Specjamar diallo Type: BLOOD SPECIMEN Ordering Facility: [facility] Address: [address] [place] [address] Performed By: #### 5 8410-2 #### [facility] CLIA [id number] [address] Nucleated RBC (Bld) [#/Vol] 10*3/uL Normal <0.01 [facility] Comment on above: Order Comment: Speci men Type: BLOOD SPECIMEN Ordering Facility: [facility] Address: [address] [place] [address] Performed By: #### 5 8410-2 #### [facility] CLIA [id number] [address] CNDSon 06-11-2023 [facility] HNO ID: [id number] Author: Kim Sinclair MD Service: Hospital Medicine Author Type: Physician Type: Discharge Summary Filed: 06/11/2023 11:48 AM Note Text: DISCHARGE SUMMARY PATIENT NAME: Lashon Tracey ADMISSION DATE: 06/07/2023 DISCHARGE DATE: 06/11/2023 ATTENDING PHYSICIAN: Kim Sinclair MD Code Status: DNR-CCA Highest Readmission Risk Score: 16 The 30 day readmissions risk score is derived from an internally validated risk model which evaluates patient level characteristics, utilization history, medication orders and lab results up until the day of discharge. Patients with a score of 40 or above are considered highest risk for readmission. Specific patient level drivers will be listed at the bottom of the summary. CONSULTING TEAMS DURING HOSPITALIZATION: Cardiology: Neurology: Treatment Team: Attending Provider: Kim Sinclair MD Consulting: Jose Delcid MD Primary Service: LAVINIA MARTEL Consulting: Lei Russell MD REASON FOR HOSPITALIZATION: Acute left cerebellar stroke DIAGNOSIS: Principal Problem: Cerebellar stroke, acute (HCC) (POA: Yes) Active Problems: Mixed hyperlipidemia (POA: Yes) Ataxia due to acute cerebrovascular disease (POA: Yes) Class 1 obesity in adult (POA: Yes) Rheumatic mitral stenosis (POA: Yes) Hypophosphatemia (POA: Yes) Resolved Problems: Hypokalemia (POA: Yes) OPERATIONS DURING HOSPITALIZATION: None PROCEDURES DURING HOSPITALIZATION: Echocardiogram, EKG, and MRI HOSPITAL COURSE: Lashon Tracey is a 83 year old with PMH of h/o stroke, rheumatic fever aged 7 complicated by severe mitral stenosis. Presented to [place] ED with GOLDMAN, ataxia, and presyncope on 06/05. MRI brain showed left cerebellar infarct. Teleneurology recommended tertiary center with neurosurgery capability. Patient was monitored on NSICU. Remained stable. Transferred to [facility] 06/08/2023. Regarding acute left cerebellar stroke in the context of severe mitral stenosis. Neurology consulted and recommended DAPT (aspirin 81 mg p.o. daily, Plavix 75 mg p.o. daily), JUDE 06/10 verbally confirmed no thrombus. Patient needs follow-up with cardiology outpatient regarding further management and she needs 30 days event monitor . Lipid profile 06/16; LDL 110 and HBA1c 5.5 (06/08/2023). She had hypokalemia and hypocalcemia that were treated orally and resolved. Day of discharge patient was feeling well. She had no symptoms to report. She has dysmetria of the left arm and unsteady gait. She was in stable condition for discharge home. Follow-up with neurology, cardiology, and PCP. Transitions of Care Critical Issues: SPECIALIST FOLLOW-UP: Cardiology and neurology LABS AND PROCEDURES PENDING AT DISCHARGE: No pending results. PATIENT CONDITION AT DISCHARGE: Stable DISCHARGE DISPOSITION: Acute Rehabilitation Facility Discharge Physical Exam: VITAL SIGNS: BP 123/77 Pulse 86 Temp 36.9 ?C (98.4 ?F) (Oral) Resp 18 Ht 154.9 cm (5' 1) Wt 72.6 kg (160 lb 0.9 oz) SpO2 97% BMI 30.24 kg/m? GENERAL: Alert, no distress, cooperative CV: RRR, S1/2 audible, no murmur Abd: Soft, non-tender, non-distended. BS+ Ext: No edema. Atraumatic Neuro: AANDO x 3. Dysmetria Lt arm. Power 5/5 all limbs. INFORMATION PROVIDED TO PATIENT: WRITTEN Stroke Material Given Addressing: Signs and Symptoms of a Stroke, When to Call 911, Modifiable Risk Factors, Need for Follow-Up After Discharge, Medication Compliance and Smoking Cessation Advice WOUND/SURGICAL SITE CARE: None DIET: Resume pre-hospital diet ACTIVITY: Resume pre-hospital activity ALLERGIES No Known Allergies DISCHARGE MEDICATION: Medication List START taking these medications atorvastatin [...] ascorbic acid (vitamin C) WOMEN'S MULTIVITAMIN ORAL FUTURE APPOINTMENTS: Follow Up with PCP: No primary care provider on file. Future Appointments Date Time Provider Department Center 06/23/2023 9:30 AM Pallavi Singh APRN.[facility] Follow Up Appointments Follow-Up Appointment When: In 2 weeks Jasmina Brush MD [phone] [place] [address] PCP Requested Referral Follow-Up Appointment When: In 2 weeks Lei Russell MD [phone] [address] [facility] [address] PCP Requested Referral The patient's risk for 30-day readmission is determined using the following contributing factors: Pt variables contributing to increased readmission risk: 15 Most Recent BUN (more content not included)... Normal [facility] NURSING PROGon 06-11-2023 NURSING PROG HNO ID: [id number] Author: Manju Jeffers RN Service: Nursing Author Type: Registered Nurse Type: Nursing Progress Note Filed: 06/11/2023 12:34 PM Note Text: Report to LISA conklin x2. Php Engineer requested a callback in 15 minutes. 1231: Report given to Augie. Normal [facility] ANES POSTPROC EVALon 023 ANES POSTPROC EVAL HNO ID: [id number] Author: Randy Madison MD Service: Anesthesiology Author Type: Physician Type: Anesthesia Postprocedure Evaluation Filed: 06/10/2023 3:29 PM Note Text: POST ANESTHESIA EVALUATION NOTE : 1940 Procedure Summary Date: 06/10/23 Room / Location: [facility] / [place] [facility] Anesthesia Start: 935 Anesthesia Stop: 105 Procedure: ECHOCARDIOGRAM TRANSESOPHOGEAL, REAL TIME W/IMAGE DOCUMENT (2D) Diagnosis: Cerebrovascular accident (CVA), unspecified mechanism (HCC) (Cerebrovascular accident (CVA), unspecified mechanism (HCC) [I63.9]) Surgeons: Lei Russell MD Responsible Provider: Randy Madison MD Anesthesia Type: MAC ASA Status: 3 Anesthesia Type: MAC Last Vitals Vitals Value Taken Time BP 130/68 06/10/23 1109 Temp 36.2 ?C (97.2 ?F) 06/10/23 1109 Pulse 75 06/10/23 1109 Resp 18 06/10/23 1109 SpO2 97 % 06/10/23 1109 Post Anesthesia Patient Status Patient Evaluation: bedside. Neurological Status: aware and responsive. Pulmonary Status: breathing comfortably on supplemental oxygen Airway Control: returned to baseline unsupported. Cardiovascular Status: stable. Pain Management: clinically adequate Postoperative Hydration: acceptable. Intraoperative Events: no significant anesthesia events Post Operative Nausea/Vomiting Status: no significant post operative nausea or vomiting Recommendation: continue current plan of care. Anesthesia Observations No Documentation SIGNATURE: Randy Madison MD PATIENT NAME: Lashon Tracey DATE: June 10, 2023 TIME: 3:29 PM CSN: [id number] Normal [facility] ANES PRE-OPon 06-10-2023 ANES PRE-OP HNO ID: [id number] Author: Randy Madison MD Service: Anesthesiology Author Type: Physician Type: Anesthesia Preprocedure Evaluation Filed: 06/10/2023 9:48 AM Note Text: ANESTHESIOLOGY DAY OF SURGERY NOTE : 1940 Procedure Information Anesthesia Start Date/Time: 06/10/23935 Procedure: ECHOCARDIOGRAM TRANSESOPHOGEAL, REAL TIME W/IMAGE DOCUMENT (2D) Location: [facility] / [place] [facility] Surgeons: Lei Russell MD Estimated body mass index is 31.8 kg/m? as calculated from the following: Height as of this encounter: 154.9 cm (5' 1). Weight as of this encounter: 76.3 kg (168 lb 4.8 oz). Most recent hematocrit and potassium results: Hematocrit 39.3 06/09/2023 Potassium 4.1 06/09/2023 Relevant Problems CARDIO (+) Cerebellar stroke, acute (HCC) NEURO-PSYCH (+) Cerebellar stroke, acute (HCC) (+) Chronic arterial ischemic stroke I - PHYSICAL EVALUATION AIRWAY Patient intubated: No. Tracheostomy tube not present Mallampati: III. TM distance: >3 FB. Neck ROM: full ROM without neurological symptoms. Mouth opening: adequate. Short neck: no. Thick neck: no DENTAL Dental findings: missing tooth/teeth and broken tooth. II - ANESTHESIA PLAN ASA Score: 3 Anesthetic Plan: MAC NPO Status: adequate Beta Igor Monitoring Plan Monitoring plan: standard ASA. Post Procedure Analgesic Plan Postoperative analgesic plan: parenteral or oral opioids. Informed Consent Anesthetic risks, benefits, alternatives, personnel and consent discussed: yes. Patient / Responsible Democrat agrees to proceed: yes Patient / Surrogate agrees to blood products: blood products not planned DNR status not reviewed with patient and/or family prior to surgery. Significant changes in the patient condition since the History and Physical, not otherwise documented in primary service progress note: no. Potential Anesthesia issues that may suggest increased risk of complications or contraindication to planned procedure: none. No vitals data found for the desired time range. Facility-Administered Medications as of 06/10/2023 Medication Dose Route Frequency - [] sodium chloride 0.9 % (flush) 2-10 mL (BD POSIFLUSH) 2-10 mL INTRAVENOUS ONCE - [Held on Transfer] sodium chloride 0.9 % (flush) 2-10 mL (BD POSIFLUSH) 2-10 mL INTRAVENOUS DIRECTED PRN And - [Held on Transfer] perflutren lipid microspheres 1.1 mg/mL 1.3 mL injection (DEFINITY) 1.3 mL INTRAVENOUS DIRECTED PRN - [Held on Transfer] phosphorus 250 mg tab(s) (K PHOS NEUTRAL) 250 mg ORAL BID PC - [Held on Transfer] aspirin 81 mg chewable tab(s) 81 mg ORAL DAILY - [Held on Transfer] clopidogrel 75 mg tab(s) (PLAVIX) 75 mg ORAL/FEEDING TUBE DAILY - [COMPLETED] potassium chloride ER 20 mEq tab(s) (KLOR-CON) 20 mEq ORAL/FEEDING TUBE ONCE - [Held on Transfer] heparin 5,000 Units injection 5,000 Units SUBCUTANEOUS q 8 H - [Held on Transfer] hydrALAZINE 10 mg injection (APRESOLINE) 10 mg INTRAVENOUS q 4 H PRN - [Held on Transfer] senna-docusate 8.6-50 mg 1 tablet (SENNA-S) 1 tablet ORAL/FEEDING TUBE BID - [Held on Transfer] bisacodyl 10 mg suppository (DULCOLAX) 10 mg RECTAL DAILY PRN - [Held on Transfer] ondansetron (PF) 4 mg injection (ZOFRAN) 4 mg INTRAVENOUS q 4 H PRN - [Held on Transfer] NaCl 0.9% iv flush bag 20 mL INTRAVENOUS PRN - [Held on Transfer] acetaminophen 650 mg tab(s) (TYLENOL) 650 mg ORAL/FEEDING TUBE q 4 H PRN Or - [Held on Transfer] acetaminophen 650 mg CUP (TYLENOL) 650 mg ORAL/FEEDING TUBE q 4 H PRN Or - [Held on Transfer] acetaminophen 650 mg suppository (TYLENOL) 650 mg RECTAL q 4 H PRN - [Held on Transfer] atorvastatin 40 mg tab(s) (LIPITOR) 40 mg ORAL/FEEDING TUBE AT BEDTIME Outpatient Medications as of 06/10/2023 Medication Sig - triamcinolone acetonide (KENALOG) 0.1 % ointment APPLY TO THE AFFECTED AREA(S) AT BEDTIME UNTIL GONE AND USE TWICE DAILY in THE future klaudia - aspirin, enteric coated (ASPIRIN, ENTERIC COATED) 81 mg EC tablet 81 mg once daily. - mv-min/iron/folic/franco cium/vitK (WOMEN'S MULTIVITAMIN ORAL) Take 1 tablet by mouth once daily. - ascorbic acid, vitamin C, (VITAMIN C) 500 mg tablet Take 500 mg by mouth once daily. I have interviewed and examined the patient. I have reviewed the medical record and/or the pre-anesthesia evaluation, pertinent labs, and test results. This contains updated information obtained within 48 hours of Surgery/Procedure. SIGNATURE: Randy Madison MD PATIENT NAME: Lashon Tracey DATE: June 10, 2023 TIME: 9:46 AM CSN: [id number] [facility] CONSULT PROGon 06-10-2023 CONSULT PROG HNO ID: [id number] Author: Almita Marroquin APRN.[employer] Service: Neurology General Author Type: Nurse Practitioner Type: Consult Progress Note Filed: 06/10/2023 4:41 PM Note Text: NEURO STROKE PROGRESS NOTE SERVICE DATE: 06/10/2023 SERVICE TIME: 1600 Subjective INTERVAL HISTORY: Patient resting in bed, family at bedside. Updated on plan of care. No acute events overnight. MEDICATIONS Current Facility-Administered Medications Medication Dose Route Frequency senna-docusate 8.6-50 mg 1 tablet (SENNA-S) 1 tablet ORAL/FEEDING TUBE BID bisacodyl 10 mg suppository (DULCOLAX) 10 mg RECTAL DAILY PRN ondansetron (PF) 4 mg injection (ZOFRAN) 4 mg INTRAVENOUS q 4 H PRN NaCl 0.9% iv flush bag 20 mL INTRAVENOUS PRN acetaminophen 650 mg tab(s) (TYLENOL) 650 mg ORAL/FEEDING TUBE q 4 H PRN Or acetaminophen 650 mg CUP (TYLENOL) 650 mg ORAL/FEEDING TUBE q 4 H PRN Or acetaminophen 650 mg suppository (TYLENOL) 650 mg RECTAL q 4 H PRN atorvastatin 40 mg tab(s) (LIPITOR) 40 mg ORAL/FEEDING TUBE AT BEDTIME aspirin 81 mg chewable tab(s) 81 mg ORAL DAILY clopidogrel 75 mg tab(s) (PLAVIX) 75 mg ORAL/FEEDING TUBE DAILY heparin 5,000 Units injection 5,000 Units SUBCUTANEOUS q 8 H hydrALAZINE 10 mg injection (APRESOLINE) 10 mg INTRAVENOUS q 4 H PRN sodium chloride 0.9 % (flush) 2-10 mL (BD POSIFLUSH) 2-10 mL INTRAVENOUS DIRECTED PRN And perflutren lipid microspheres 1.1 mg/mL 1.3 mL injection (DEFINITY) 1.3 mL INTRAVENOUS DIRECTED PRN phosphorus 250 mg tab(s) (K PHOS NEUTRAL) 250 mg ORAL BID PC Objective PHYSICAL EXAM Vital Signs: BP 129/71 Pulse 81 Temp 36.3 ?C (97.3 ?F) (Axillary) Resp 18 Ht 154.9 cm (5' 1) Wt 76.3 kg (168 lb 4.8 oz) SpO2 98% BMI 31.80 kg/m? GENERAL: Awake/easily arousable. HEENT: Normocephalic/atrauma tic, no lymphadenopathy, thyroid non-tender, without palpable masses/nodules or enlargement. RESPIRATORY: Normal respiratory effort. Clear to auscultation without rhonchi, rales, wheezing. CARDIOVASCULAR: RRR, normal S1, S2 auscultated, no murmur present. No lower extremity edema. GI: No hernia, masses, hepatosplenomegaly or lymphadenopathy. EXTREMITIES: No cyanosis, clubbing or edema. Pedal and radial pulses 2+ bilaterally. SKIN: Skin color, texture, turgor normal. No rashes or lesions. MUSCULOSKELETAL Spine range of motion normal. Muscular strength intact. Range of motion normal in hips, knees, shoulders, and spine. No joint swelling, deformity, or tenderness. NEUROLOGICAL: LOC: 0 - alert and responsive 0 LOC Questions: 0 - both correct 0 LOC Commands: 0 - both correct 0 Best Gaze: 0 - normal gaze 0 Visual: 0 - no visual loss 0 Facial Palsy: 0 - normal 0 Motor Left Arm: 0 - no drift 0 Motor Right Arm: 0 - no drift 0 Motor Left Le - no drift 0 Motor Right Le - no drift 0 Limb Ataxia: 0 - no ataxia (or aphasic, hemiplegic) 0 Sensory: 0 - normal 0 Best Language: 0 - normal 0 Dysarthria: 0 - normal 0 Extinction and Inattention: 0 - normal, none detected (or visual loss alone) 0 Daily NIHSS Score: 0 (06/10/23 1600 : Almita Marroquin, CHRISTIAN.[employer]) 0 MENTAL STATUS: Alert, oriented to person, place and time and Follows commands CRANIAL NERVES: PERRLA, EOM's intact, Visual tristan intact to confrontation, Extraocular movements intact, Facial sensation intact, Face symmetric, No facial droop or ptosis, Hearing intact to finger rub bilaterally, and No dysarthria MOTOR: No drift and Normal tone MOTOR STRENGTH: Upper and lower extremity 5/5 bilaterally REFLEXES: UE and LE reflexes are equal and reactive SENSATION: Intact light touch COORDINATION: Finger-to- nose-finger intact bilaterally and [id number] intact bilaterally GAIT: Not assessed DATA: Diagnostic tests reviewed for today's visit: Lipids, HbA1c, Recent Labs 06/08/23 0014 CHOL 184 HDL 51 LDL 110* TG 114 HBA1C 5.5 CMP, CBC, Coags Recent Labs 06/10/23 0507 06/09/23 0454 06/08/23 1320 06/08/23 0356 NA -- 141 -- 142 K -- 4.1 -- 3.6* CHLOR -- 105 -- 106* CO2 -- 26 -- 27 BUN -- 15 -- 17 CREAT -- 1.14* -- 1.08* GLUC -- 97 -- 91 CA -- 8.7 -- 8.6 MG -- 2.0 -- 2.2 P 3.0 2.6* -- 2.7 WBC -- 10.22 -- 8.47 HB -- 12.9 -- 11.2* HCT -- 39.3 -- 34.2* PLT -- 273 -- 233 INR -- -- 1.1 -- APTT -- -- 26.3 -- Most recent labs and imaging results. MEDICAL EVENTS: No medical events have been recorded. STROKE 9 CARE AND PREVENTION CHECKLIST 1. Is the patient currently on an ANTITHROMBOTIC medication (Antiplatelet or Anticoagulant): Aspirin, Clopidogrel 2. Does the patient have known AFIB/FLUTTER: No 3. Is the patient on a STATIN: Atorvastatin 40 mg 4. Is the patient on VTE prophylaxis: Mechanical prophylaxis, Pharmacological prophylaxis Pharmacological intervention type: Heparin SQ Mechanical intervention type: Intermittent compression stocking(s) 5. GLYCEMIC Control Medications: Not Diabetic 6. Stroke BP (more content not included)... Normal [facility] ECHO TRANSESOPHAGEALon 06-10 ECHO TRANSESOPHAGEAL Echocardiography Report: Transesophageal Echo [facility] Date of service: 06/10/2023 9:50:04 AM [facility] Ordering physician: ALMITA MARROQUIN Indication: ?Embolic source _ Normal TTE and ECG Technologist: Latricia Garcia [facility] Interpreting physician: Lei Russell MD PATIENT: Name: MRS. LASHON TRACEY : 1940 Age: 83 years Gender: F History of hypertension and valvular heart disease. Primary rhythm: sinus. Height: 154.90 cm BSA: 1.85 m Weight: 79.20 kg BMI: 33.0 kg/m Pre Heart rate 83 bpm Blood pressure 164/83 mmHg Agitated saline was administered to rule out shunt. Color Doppler was utilized to interrogate the cardiac valves assessed and spectral Doppler was utilized to determine the flow velocities and pressure gradients reported in this exam. Medications Total Dose Agitated Saline 10.00 ml Hurricaine x1, Propofol 250mg Exam performed under moderate sedation with continuous ECG, pulse oximetry and cardiopulmonary monitoring by nursing, overseen by the performing physician(s), for an intraservice time of 38 min. (Stop Time: 10:42) No specimens collected. No blood loss. The interpreting physician was present for and actively participated in the JUDE procedure. MEASUREMENTS: Value Normal Max aortic dimension 3.4 cm Ao < 3.8 Ejection Fraction 65 % (visual est.) EF > 54 FINDINGS: LEFT VENTRICLE The left ventricle is normal in size. Left ventricular systolic function is normal. RIGHT VENTRICLE The right ventricle is normal in size. Right ventricular systolic function is normal. Estimated right ventricular systolic pressure is 30 mmHg consistent with normal pulmonary artery pressures. Estimated right atrial pressure is 3 mmHg (although IVC not seen). LEFT ATRIUM The left atrial cavity is dilated. There is mild spontaneous echo contrast noted. The peak emptying velocity from the left atrial appendage is 55.0 cm/s. There is no left atrial appendage thrombus. Pulmonary Veins: The pulmonary venous pattern showed normal systolic flow. RIGHT ATRIUM The right atrial cavity is normal in size. MITRAL VALVE There is moderate mitral stenosis. There is trace mitral valve regurgitation. There is mild thickening at the tips. There is doming. The peak mitral valve gradient is 12 mmHg. The mean mitral valve gradient is 8 mmHg. The pressure half time is 94 msec. MV area is 2.34 cm (1.27 cm /m ) by P1/2. TRICUSPID VALVE The tricuspid valve leaflets are structurally normal. There is mild (1+) tricuspid valve regurgitation. AORTIC VALVE The aortic valve cusps are structurally normal. There is no aortic valve stenosis. There is no aortic valve regurgitation. Tricuspid aortic valve. PULMONIC VALVE The pulmonic valve cusps are structurally normal. There is trace pulmonic valve regurgitation. AORTA The visualized aorta is normal in size. Measurements - Mid ascending aorta 3.4 cm. INTERATRIAL SEPTUM There is no evidence of intracardiac shunting as detected by agitated saline contrast and Doppler. PERICARDIUM There is no pericardial effusion. CONCLUSIONS: - Exam indication: ?Embolic source _ Normal TTE and ECG - The left ventricle is normal in size. Left ventricular systolic function is normal. EF = 65 5% (visual est.) - The right ventricle is normal in size. Right ventricular systolic function is normal. - The left atrial cavity is dilated. There is no left atrial appendage thrombus. - There is moderate mitral stenosis. MV area is 2.34 cm (1.27 cm /m ) by P1/2. The peak gradient is 12 mmHg and the mean gradient is 8 mmHg. Mitral valve area by planimetry is 1.54 cm . 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 - There is mild (1+) tricuspid valve regurgitation. - Estimated right ventricular systolic pressure is 30 mmHg consistent with normal pulmonary artery pressures. Estimated right atrial pressure is 3 mmHg (although IVC not seen). - There is no evidence of intracardiac shunting as detected by agitated saline contrast and Doppler. - Exam was compared with the prior echocardiographic exam performed on 06/09/2023. * * * Final * * * [employer] [facility] : [id number] Normal [facility] Phosphate SerPl-mCncon 06-10 Phosphate [Mass/Vol] 3.0 mg/dL Normal 2.7-4.8 [facility] Comment on above: Order Comment: Speci men Type: BLOOD SPECIMENOrdering Facility: [facility] Address: [address] [place] [address] Performed By: #### 2 777-1 ####[facility] LABORATORYCLIA [id number] [address] STATES OF [facility] THERAPY NTon 06-10-2023 THERAPY NT HNO ID: [id number] Author: Yessica Puente OTR/Cm Service: Occupational Therapy Author Type: Occupational Therapist Type: Therapy (PT/OT/Speech/Resp) Filed: 06/10/2023 1:55 PM Note Text: Occupational Therapy Evaluation SERVICE DATE: 06/10/2023 SERVICE TIME: 1315 to 1338 ROOM: [id number] Recommended Discharge Disposition: Acute Rehab Recommended Discharge Disposition Comments: Rec Acute Rehab at d/c due to acute cerebellar stroke and is now below baseline for balance, coordination, self-care tasks, and cognition. Anticipate pt will tolerate 3 hours of therapy per day Recommended Discharge Disposition Due to: Patient requires an active, intensive rehabilitation therapy program due to:, ADL impairment resulting in caregiver dependence, anticipate community discharge/previous community dweller, decline in functional status requiring daily skilled care, deficits affecting non-dominant side, ongoing intervention of multiple therapy disciplines, poor trunk control, new / worsened cognitive deficits related to current diagnosis, motor planning deficits OT 6 Clicks Score: 16 Pt participate in functional mobility and feeding tasks, with heavy verbal cues for sequencing and safety awareness and min-mod A to maintain balance during mobility. Per pt's daughter, she is demonstrating improved balance compared to a few days ago. Pt able to ambulate a short distance in the hallway with wheeled walker with min A for sequencing transitional movements and transfers. Pt with questions about home equipment related to bathing. Recommended use of shower chair at home to increase safety during bathing tasks. Provided education about acute rehab and rehabilitation techniques to maximize functional skills and strength. Pt and pt's daughter agreeable to d/c recs. Precautions/Activity Restrictions: Fall Risk Current Hospital Course: CT negative, MRI showed acute right cerebellar infarct, old right frontal infarct Reason for Hospital Admission: cerebellar stroke Relevant Past Medical History: CVA, MV stenosis, OA Response to Therapy Interventions: Good Participation in Activities, Needs Frequent Redirection or Reinstruction Continued Skilled Needs Due to: Cognitive Deficits, Functional Impairment, Safety Concerns Occupational Therapy Problem List: Cognitive Deficit, Safety Deficits, Impaired Self Care, Decreased Activity Tolerance, Decreased Range Of Motion, Decreased Strength, Functional Mobility Impairment, Balance Impaired, Motor Planning Difficulties, Impaired Fine Motor Skills Treatment Interventions: Education, Energy Conservation Training, Functional Mobility Training, Cognitive Training, Balance Training, Strengthening, Self Care/Home Management Home Environment Patient Lives With: Self/Alone Assistance Available: Part-Time (family, her son lives across the street) Entry To Home: No Stairs Number Of Stairs To Bed/Bath: 0 Tub/Shower Type: tub shower with grab bars Laundry: pt completed before, is on main floor Equipment Owned: Rollator, Grab Bars- Shower, Lift Chair Prior Functional Level: Within Functional Limits Prior Functional Level Comments: Prior to admit pt was fully independent without assistive devices, able to complete ADLs/IADLs. Drives. Baseline Cognition: Oriented to self, Oriented to place, Oriented to time, Oriented to situation Occupational Factors Life Roles: Retired Identified Strengths: Good Support System Identified Barriers: Medical Acuity/Chronic Condition Subjective: Pt pleasant and motivated to participate in OT CURRENT FUNCTIONAL STATUS: Most recent performance Current Activities of Daily Living Assist Level Additional Information Feeding Set Up Grooming Minimal Assistance Bathing Upper Body Moderate Assistance Bathing Lower Body Moderate Assistance Dressing Upper Body Moderate Assistance, Additional Information assisted pt to adjust buttons on gown and manage fastener. Pt initially sitting with buttons open over shoulders, requested help to adjust it Dressing Lower Body Moderate Assistance Toileting Minimal Assistance, Additional Information support for balance during pericare Instrumental Activities of Daily Living Assist Level Additional Information Meal/Beverage Prep Cleaning Laundry Medication Management with Strategies Functional Mobility Assist Level Additional Information Rolling Supine to Sit Sit to Supine Scooting Contact Guard Assistance Sit to Stand Contact Guard Assistance, Additional Information cues for safety awareness, encouraged pt to push up from arm rests of chair instead of walker to reduce risk of tipping walker during transfer Stand to Sit Minimal Assistance, Additional Information cues to reach back with hands for controlled lowering, poor eccentric control Bed to Chair Toilet/Commode Minimal Assistance, Additional Information cues for safety awareness, cues to reach back with hand (more content not included)... Normal [facility] THERAPY NT HNO ID: [id number] Author: Yessica Puente OTR/Cm Service: Occupational Therapy Author Type: Occupational Therapist Type: Therapy (PT/OT/Speech/Resp) Filed: 06/10/2023 10:49 AM Note Text: OCCUPATIONAL THERAPY MISSED VISIT SERVICE DATE: 06/10/2023 SERVICE TIME: 1048 to 1048 ROOM: EP POOL ([facility]) Patient not seen due to Test / Procedure. Attempted at 9:30 AM and repeat attempt now. Will reattempt as able/appropriate. SIGNATURE: RENAE Gee/Cm PATIENT NAME: Lashon Tracey DATE: June 10, 2023 TIME: 10:48 AM Normal [facility] Basic metabolic 2000 panelon 06-09-2023 Anion gap [Moles/Vol] 10 mmol/L Normal 9-18 [facility] Comment on above: Order Comment: Speci men Type: BLOOD SPECIMEN Ordering Facility: [facility] Address: [address] [place] [address] Performed By: #### 2 5142-2, 91627-9, 2776-07 #### [facility] CLIA [id number] [address] [place] [address] [place] Calcium [Mass/Vol] 8.7 mg/dL Normal 8.5-10.2 [facility] Comment on above: Order Comment: Speci men Type: BLOOD SPECIMEN Ordering Facility: [facility] Address: [address] [place] [address] Performed By: #### 2 4321-2, , 2776-07 #### [facility] CLIA [id number] [address] [place] [address] [place] Chloride [Moles/Vol] 105 mmol/L Normal 97-105 [facility] Comment on above: Order Comment: Speci men Type: BLOOD SPECIMEN Ordering Facility: [facility] Address: [address] [place] [address] Performed By: #### 2 4320-2, , 2776-07 #### [facility] CLIA [id number] [address] [place] CO2 [Moles/Vol] 26 mmol/L Normal 22-30 [facility] Comment on above: Order Comment: Speci men Type: BLOOD SPECIMEN Ordering Facility: [facility] Address: [address] [place] [address] Performed By: #### 2 4321-2, , 2776-07 #### [facility] CLIA [id number] [address] [place] [address] [place] Creatinine [Mass/Vol] 1.14 mg/dL High 0.58-0.96 [facility] Comment on above: Order Comment: Speci men Type: BLOOD SPECIMEN Ordering Facility: [facility] Address: [address] [place] [address] Performed By: #### 2 4321-2, , 2776-07 #### [facility] CLIA [id number] [address] OF [place] Creatinine and Glomerular filtration rate.predicted panel (S/P/Bld) 48 mL/min/1.73m??? Low >=60 [facility] Comment on above: Order Comment: Odette diallo Type: BLOOD SPECIMEN Ordering Facility: [facility] Address: [address] [place] [address] Result Comment: Carmen mated Glomerular Filtration Rate (eGFR) is calculated using the 2020 CKD-EPI creatinine equation. This equation utilizes serum creatinine, sex, and age as parameters. The creatinine assay has traceable calibration to isotope dilution-mass spectrometry. Refer to KDIGO guidelines for clinical interpretation. In patients with unstable renal function, e.g. those with acute kidney injury, the eGFR may not accurately reflect actual GFR. Performed By: #### 2 4321-2, 11520-8, 2777- #### [facility] CLIA [id number] [address] [place] [address] [place] Glucose [Mass/Vol] 97 mg/dL Normal 74-99 [facility] Comment on above: Order Comment: Odette diallo Type: BLOOD SPECIMEN Ordering Facility: [facility] Address: [address] [place] [address] Result Comment: The [place] Diabetes [employer] (ADA) provides guidance for cutoff values for fasting glucose and random glucose. The ADA defines fasting as no caloric intake for at least 8 hours. Fasting plasma glucose results between 100 to 125 mg/dL indicate increased risk for diabetes (prediabetes). Fasting plasma glucose results greater than or equal to 126 mg/dL meet the criteria for diagnosis of diabetes. In the absence of unequivocal hyperglycemia, results should be confirmed by repeat testing. In a patient with classic symptoms of hyperglycemia or hyperglycemic crisis, random plasma glucose results greater than or equal to 200 mg/dL meet the criteria for diagnosis of diabetes. Reference: Standards of Medical Care in Diabetes 2016, [place] [employer]. Diabetes Care. 2016.39(Suppl 1). Performed By: #### 2 4321-2, 49395-6, 2776- #### [facility] CLIA [id number] [address] [place] [address] [place] Potassium [Moles/Vol] 4.1 mmol/L Normal 3.7-5.1 [facility] Comment on above: Order Comment: Odette diallo Type: BLOOD SPECIMEN Ordering Facility: [facility] Address: [place] [id number] Performed By: #### 2 4321-2, , 2776-07 #### [facility] CLIA [id number] [address] Sodium [Moles/Vol] 141 mmol/L Normal 136-144 [facility] Comment on above: Order Comment: Speci men Type: BLOOD SPECIMEN Ordering Facility: [facility] Address: [address] [place] [address] Performed By: #### 2 4321-2, , 2776-07 #### [facility] CLIA [id number] [address] [place] Urea nitrogen [Mass/Vol] 15 mg/dL Normal 7-21 [facility] Comment on above: Order Comment: Speci men Type: BLOOD SPECIMEN Ordering Facility: [facility] Address: [address] [place] [address] Performed By: #### 2 4321-2, , 2776-07 #### [facility] CLIA [id number] [address] OF [facility] CASE MGT INIT MAURICIOon 2022 CASE MGT INIT ASSÓSCAR HNO ID: [id number] Author: Rossana Crews LISW Service: Social Work Author Type: Powder Blender And Pourer Type: Care Mgt Initial Assessment Filed: 06/09/2023 10:32 AM Note Text: CARE MANAGEMENT: ASSESSMENT AND DISCHARGE PLAN SERVICE DATE: June 09, 2023 SERVICE TIME: 10:26 AM PCP: No primary care provider on file. Primary Contact: No emergency contact information on file. Admission Status: Inpatient Insurance Provider: [facility] OPTIONS PPO Discharge Planning requested by: Per Department Practice Potential Transition Plans To Be Determined Advance Directives Current Living Arrangements and Support Lives with: Alone Type of Residence: Private Residence (Apartment or Condo) Does the patient have to climb stairs at home?: stairs outside the home;Yes Support: Children How do you manage to accomplish the following: Independent: Ambulation;Bathe/Show er;Dress;Meals/Meal Prep;Going to the bathroom;Medication Management;Transporta tion to appointments/communit y Current Services/Equipment Current Post-Acute Service(s): None Discharge Planning Patient Goal(s): Be able to go home, General wellness [place] Explained: [place] of [place] Given: No Reason Not Given: Unable to complete with this assessment - revisit Are you interested in bedside delivery of your medications? No Discharge Planning Participant(s): Patient Patient/Family Comments: Caregiver Assessment: Caregiver is ready, willing and able to meet the patient's needs as recommended by the inter-professional team: No Caregiver needed Transport at Discharge: Transportation Arrangements: To Be Determined Needs Prior to Discharge: Needs Prior to Discharge: OT/PT Evaluation;To Be Determined Post-Acute Discharge Plan: Stroke Recovery Met with pt who indicates she lives alone in independent living at [facility]. Son, Jose lives across the street and has 2 daughters who are also supportive. 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 No equipment or home health care. Pt denies hx of depression and declined to take geriatric depression scale. Discussed and gave hand-out on possible post-stroke depression and coping with emotional changes. PT and OT evals pending. CM will follow for transitional needs. SIGNATURE: DIVYA Finch PATIENT NAME: Lashon Tracey DATE: June 09, 2023 TIME: 10:26 AM CONTACT #: [phone] Normal [facility] CBC panel Auto (Bld)on 06-09 Erythrocyte distribution width (RBC) [Ratio] 13.1 % Normal 11.5-15.0 [facility] Comment on above: Order Comment: Odette diallo Type: BLOOD SPECIMEN Ordering Facility: [facility] Address: [address] [place] [address] Performed By: #### 2 4321-2, 07252-6, 2777-1 #### [facility] CLIA [id number] 1 [place] [address] [place] Hematocrit (Bld) [Volume fraction] 39.3 % Normal 36.0-46.0 [facility] Comment on above: Order Comment: Odette diallo Type: BLOOD SPECIMEN Ordering Facility: [facility] Address: [address] [place] [address] Performed By: #### 2 4321-2, , 2776-07 #### [facility] CLIA [id number] [address] Hemoglobin (Bld) [Mass/Vol] 12.9 g/dL Normal 11.5-15.5 [facility] Comment on above: Order Comment: Speci men Type: BLOOD SPECIMEN Ordering Facility: [facility] Address: [address] [place] [address] Performed By: #### 2 4320-2, , 2776-07 #### [employer] [facility] CLIA [id number] [address] OF [facility] MCH (RBC) [Entitic mass] 30.5 pg Normal 26.0-34.0 [facility] Comment on above: Order Comment: Speci men Type: BLOOD SPECIMEN Ordering Facility: [facility] Address: [address] [place] [address] Performed By: #### 2 2, , 2776-07 #### [facility] CLIA [id number] [address] MCHC (RBC) [Mass/Vol] 32.8 g/dL Normal 30.5-36.0 [facility] Comment on above: Order Comment: Speci men Type: BLOOD SPECIMEN Ordering Facility: [facility] Address: [address] [place] [address] Performed By: #### 2 4320-2, , 2776-07 #### [facility] CLIA [id number] [address] [facility] MCV (RBC) [Entitic vol] 92.9 fL Normal 80.0-100.0 [facility] Comment on above: Order Comment: Speci men Type: BLOOD SPECIMEN Ordering Facility: [facility] Address: [address] [place] [address] Performed By: #### 2 1-2, , 2776-07 #### [facility] CLIA [id number] [address] [place] Nucleated RBC (Bld) [#/Vol] 10*3/uL Normal <0.01 [facility] Comment on above: Order Comment: Speci men Type: BLOOD SPECIMEN Ordering Facility: [facility] Address: [address] [place] [address] Performed By: #### 2 4321-2, , 2776-07 #### [facility] CLIA [id number] [address] [place] Platelet mean volume (Bld) [Entitic vol] 10.3 fL Normal 9.0-12.7 [facility] Comment on above: Order Comment: Speci men Type: BLOOD SPECIMEN Ordering Facility: [facility] Address: [address] [place] [address] Performed By: #### 2 432-2, , 2776-07 #### [facility] CLIA [id number] [address] Platelets (Bld) [#/Vol] 273 10*3/uL Normal 150-400 [facility] Comment on above: Order Comment: Speci men Type: BLOOD SPECIMEN Ordering Facility: [facility] Address: [address] [place] [address] Performed By: #### 2 432-2, , 2776-07 #### [facility] CLIA [id number] [address] [place] RBC (Bld) [#/Vol] 4.23 10*6/uL Normal 3.90-5.20 [facility] Comment on above: Order Comment: Speci men Type: BLOOD SPECIMEN Ordering Facility: [facility] Address: [address] [place] [address] Performed By: #### 2 1-2, , 2776- #### [facility] CLIA [id number] [address] [place] WBC (Bld) [#/Vol] 10.22 10*3/uL Normal 3.70-11.00 [facility] Comment on above: Order Comment: Speci men Type: BLOOD SPECIMEN Ordering Facility: [facility] Address: [place] [id number] Performed By: #### 2 4321-2, 94042-5, 2777-1 #### [facility] CLIA [id number] [address] [place] CONSULTon 06-09-2023 CONSULT HNO ID: [id number] Author: Lei Russell MD Service: Cardiovascular Medicine Author Type: Physician Type: Consults Filed: 06/09/2023 4:18 PM Note Text: CARDIOLOGY CONSULT NOTE REASON FOR CONSULT: Mitral valve stenosis REQUESTING PHYSICIAN: Dr. Sinclair HPI: Ms. Tracey is a 83 year old female on whom Cardiology is consulted for mitral stenosis. 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 She does have past history of stroke. She denies any chest pain or shortness of breath. She walks regularly without angina or dyspnea. She is without current leg swelling, orthopnea or PND. She denies racing heartbeat or palpitations. PAST MEDICAL HISTORY Diagnosis Date Heart disease, rheumatic Osteoarthritis of multiple joints Pulmonary hypertension (HCC) Stroke (cerebrum) (HCC) 2021 TIA (transient ischemic attack) History reviewed. No pertinent surgical history. SOCIAL HISTORY No family history on file. Family history was reviewed and non-contributory. ALLERGIES No Known Allergies MEDICATIONS: triamcinolone acetonide (KENALOG) 0.1 % ointmentAPPLY TO THE AFFECTED AREA(S) AT BEDTIME UNTIL GONE AND USE TWICE DAILY in THE future asapDisp: Rfl: aspirin, enteric coated (ASPIRIN, ENTERIC COATED) 81 mg EC [id number] mg once daily.Disp: Rfl: mv-min/iron/folic/franco cium/vitK (WOMEN'S MULTIVITAMIN ORAL)Take 1 tablet by mouth once daily.Disp: Rfl: ascorbic acid, vitamin C, (VITAMIN C) 500 mg tabletTake 500 mg by mouth once daily.Disp: Rfl: REVIEW OF SYSTEMS: GENERAL: Negative for:Weight loss and Weight gain HEENT: Negative for:Nosebleeds RESPIRATORY: Negative for:Shortness of breath GASTROINTESTINAL: Negative for:Blood in stool MUSCULOSKELETAL: Negtive for: Muscle or joint pain, stiffness, Joint swelling SKIN: No rash HEMATOLOGICAL/LYMPHAT IC: Negative for: Easy bruising and Easy bleeding CARDIOVASCULAR: As stated in HPI. 10 system review negative except as stated in HPI PHYSICAL EXAMINATION: BP 139/71 Pulse 90 Temp 37.3 ?C (99.1 ?F) (Oral) Resp 18 Ht 154.9 cm (5' 1) Wt 79.2 kg (174 lb 9.7 oz) SpO2 96% BMI 32.99 kg/m? General: Well appearing, appears stated age and in no acute distress. Psych: Normal Affect Eyes: No subconjunctival hemorrhage Skin: No rash, bruising Oropharynx: Mucous membranes normal Neck: no jugular venous distention, no carotid bruits. Lymph: No cervical lymphadenopathy Lungs: Clear to auscultation bilaterally, no wheezing or rhonchi. 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 No current evidence of A-fib. Patient without any signs or symptoms of heart failure. PLAN: I have ordered transthoracic echo to assess cardiac structure and function Plan for JUDE tomorrow to rule out JONATHON appendage thrombus and to better assess mitral valve stenosis Obtain EKG, continue on site services specialist 30-day event monitor upon discharge She is on aspirin and Plavix for stroke as per neurology Also on Lipitor 40 mg daily Cardiology will follow. Thank you for allowing me to participate in the care of this patient. Please don't hesitate to contact me if there are any questions regarding the care of our mutual patient. Lei Russell MD, [facility] Cardiovascular Foreign Banknote TellerRadio Equipment Installersolar photovoltaic systems engineer [facility] Pager: [phone] June 09, 2023 Normal [facility] CONSULT PROGon 06-09-2023 CONSULT PROG HNO ID: [id number] Author: Almita Marroquin APRN.NACHO Service: Neurology General Author Type: Nurse Practitioner Type: Consult Progress Note Filed: 06/09/2023 11:03 AM Note Text: NEURO STROKE PROGRESS NOTE SERVICE DATE: 06/09/2023 SERVICE TIME: 1020 Subjective INTERVAL HISTORY: Patient resting in bed. States that she has been getting up to the bathroom without dizziness. Discussed MRI and TTE findings, and need for JUDE. Reviewed stroke education. Family at bedside, answered questions. MEDICATIONS Current Facility-Administered Medications Medication Dose Route Frequency senna-docusate 8.6-50 mg 1 tablet (SENNA-S) 1 tablet ORAL/FEEDING TUBE BID bisacodyl 10 mg suppository (DULCOLAX) 10 mg RECTAL DAILY PRN ondansetron (PF) 4 mg injection (ZOFRAN) 4 mg INTRAVENOUS q 4 H PRN NaCl 0.9% iv flush bag 20 mL INTRAVENOUS PRN acetaminophen 650 mg tab(s) (TYLENOL) 650 mg ORAL/FEEDING TUBE q 4 H PRN Or acetaminophen 650 mg CUP (TYLENOL) 650 mg ORAL/FEEDING TUBE q 4 H PRN Or acetaminophen 650 mg suppository (TYLENOL) 650 mg RECTAL q 4 H PRN atorvastatin 40 mg tab(s) (LIPITOR) 40 mg ORAL/FEEDING TUBE AT BEDTIME aspirin 81 mg chewable tab(s) 81 mg ORAL DAILY clopidogrel 75 mg tab(s) (PLAVIX) 75 mg ORAL/FEEDING TUBE DAILY heparin 5,000 Units injection 5,000 Units SUBCUTANEOUS q 8 H hydrALAZINE 10 mg injection (APRESOLINE) 10 mg INTRAVENOUS q 4 H PRN sodium chloride 0.9 % (flush) 2-10 mL (BD POSIFLUSH) 2-10 mL INTRAVENOUS ONCE Objective PHYSICAL EXAM Vital Signs: BP 126/72 Pulse 91 Temp 36.9 ?C (98.4 ?F) (Axillary) Resp 18 Ht 154.9 cm (5' 1) Wt 79.2 kg (174 lb 9.7 oz) SpO2 95% BMI 32.99 kg/m? GENERAL: Awake/easily arousable. HEENT: Normocephalic/atrauma tic, no lymphadenopathy, thyroid non-tender, without palpable masses/nodules or enlargement. RESPIRATORY: Normal respiratory effort. Clear to auscultation without rhonchi, rales, wheezing. CARDIOVASCULAR: RRR, normal S1, S2 auscultated, no murmur present. No lower extremity edema. GI: No hernia, masses, hepatosplenomegaly or lymphadenopathy. EXTREMITIES: No cyanosis, clubbing or edema. Pedal and radial pulses 2+ bilaterally. SKIN: Skin color, texture, turgor normal. No rashes or lesions. MUSCULOSKELETAL Spine range of motion normal. Muscular strength intact. Range of motion normal in hips, knees, shoulders, and spine. No joint swelling, deformity, or tenderness. NEUROLOGICAL: LOC: 0 - alert and responsive 0 LOC Questions: 0 - both correct 0 LOC Commands: 0 - both correct 0 Best Gaze: 0 - normal gaze 0 Visual: 0 - no visual loss 0 Facial Palsy: 0 - normal 0 Motor Left Arm: 0 - no drift 0 Motor Right Arm: 0 - no drift 0 Motor Left Le - no drift 0 Motor Right Le - no drift 0 Limb Ataxia: 1 - ataxia in upper or lower extremity 1 Sensory: 0 - normal 0 Best Language: 0 - normal 0 Dysarthria: 0 - normal 0 Extinction and Inattention: 0 - normal, none detected (or visual loss alone) 0 Daily NIHSS Score: 1 (06/09/23 1020 : Almita Marroquin, IMMIGRATION LAWYER.BLOCKER AND CUTTER CONTACT LENS) 1 MENTAL STATUS: Alert, oriented to person, place and time and Follows commands CRANIAL NERVES: PERRLA, EOM's intact, Visual tristan intact to confrontation, Extraocular movements intact, Facial sensation intact, Face symmetric, No facial droop or ptosis, Hearing intact to finger rub bilaterally, and No dysarthria MOTOR: No drift and Normal tone MOTOR STRENGTH: Upper and lower extremity 5/5 bilaterally REFLEXES: UE and LE reflexes are equal and reactive SENSATION: Intact light touch COORDINATION: Dysmetria noted in left upper extremity GAIT: Normal-based DATA: Diagnostic tests reviewed for today's visit: Lipids, HbA1c, Recent Labs 06/08/23 0014 CHOL 184 HDL 51 LDL 110* TG 114 HBA1C 5.5 CMP, CBC, Coags Recent Labs 06/09/23 0454 06/08/23 1320 06/08/23 0356 NA 141 -- 142 K 4.1 -- 3.6* CHLOR 105 -- 106* CO2 26 -- 27 BUN 15 -- 17 CREAT 1.14* -- 1.08* GLUC 97 -- 91 CA 8.7 -- 8.6 MG 2.0 -- 2.2 P 2.6* -- 2.7 WBC 10.22 -- 8.47 HB 12.9 -- 11.2* HCT 39.3 -- 34.2* PLT 273 -- 233 INR -- 1.1 -- APTT -- 26.3 -- Most recent labs and imaging results. MEDICAL EVENTS: No medical events have been recorded. STROKE 9 CARE AND PREVENTION CHECKLIST 1. Is the patient currently on an ANTITHROMBOTIC medication (Antiplatelet or Anticoagulant): Aspirin, Clopidogrel 2. Does the patient have known AFIB/FLUTTER: No 3. Is the patient on a STATIN: Atorvastatin 40 mg 4. Is the patient on VTE prophylaxis: Mechanical prophylaxis, Pharmacological prophylaxis Pharmacological intervention type: Heparin SQ Mechanical intervention type: Intermittent compression stocking(s) 5. GLYCEMIC Control Medications: Not Diabetic 6. Stroke BP Goals: SBP 130-160 Stroke BP Control: BP well controlled 7. Stroke IVF/Nutrition: Diet 8. TEMPERATURE Control: Normothermic 9. Does the patient need THERAPY: Yes (more content not included)... Normal [facility] ECG COMPLETEon 06-09-2023 ECG COMPLETE Ventricular Rate : 7 8 BPM Atrial Rate : 78 BPM P-R Interval : 146 ms QRS Duration : 66 ms Q-T Interval : 370 ms QTC Calculation(Bazett) : 421 ms Calculated P [place] : 27 degrees Calculated R [place] : 35 degrees Calculated T [place] : 47 degrees NORMAL SINUS RHYTHM LOW VOLTAGE QRS BORDERLINE ECG LEFT ATRIAL ENLARGEMENT NO PREVIOUS ECGS AVAILABLE Confirmed by ZURI BINGHAM ([id number]) on 06/10/2023 11:09:04 AM NAME : LASHON TRACEY PID : [id number] : 1940 Gender : Female Race : Unknown ORD : [id number] Procedure Date : Jun 09 2023 16:28:09 Edit Date : Jun 10 2023 11:09:07 Diagnosis: NORMAL SINUS RHYTHM LOW VOLTAGE QRS BORDERLINE ECG LEFT ATRIAL ENLARGEMENT NO PREVIOUS ECGS AVAILABLE Confirmed by ZURI BINGHAM ([id number]) on 06/10/2023 11:09:04 AM Test Reason : Arrhythmia Location : [address] : [place] [address] Overread By : ZURI BINGHAM Edited By : ZURI BINGHAM Referred By : CINDY UP Acquired by : EDDI FLORES [facility] ECHOon 06-09-2023 Echocardiography Echocardiography Report: Transthoracic Echo [facility] Date of service: 06/09/2023 1:16:31 PM [facility] Ordering physician: LEI RUSSELL Indication: Re-evaluation of known valvular heart disease with change in clinical status Technologist: Yana Avilez Interpreting physician: Scar Valencia MD PATIENT: Name: MRS. LASHON TRACEY : 1940 Age: 83 years Gender: F History of hypertension. Primary rhythm: sinus. Height: 154.90 cm BSA: 1.85 m Weight: 79.20 kg BMI: 33.0 kg/m Heart rate 82 bpm Blood pressure 126/72 mmHg Color Doppler was utilized to interrogate the cardiac valves assessed and spectral Doppler was utilized to determine the flow velocities and pressure gradients reported in this exam. MEASUREMENTS: Value Indexed Normal Max aortic dimension 2.9 cm Ao < 3.8 Left atrial volume 82 ml (biplane A-L) 44 ml/m Bella <= 34 LV ID (diastole) 3.8 cm (2D) 2.03 cm/m LV ID (systole) 2.9 cm (2D) 1.55 cm/m IVS, leaflet tips 0.9 cm (2D) Posterior wall thickness 0.8 cm (2D) Left ventricular mass 86 g (2D) 46 g/m LV stroke volume 37 ml (2D biplane) LV end diastolic volume 58 ml (2D biplane) 31.5 ml/m 29<=EDVi<62 LV end systolic volume 21 ml (2D biplane) 11.6 ml/m Ejection Fraction 63 % (2D biplane) EF > 54 FINDINGS: LEFT VENTRICLE The left ventricle is normal in size. There is no left ventricular hypertrophy. Left ventricular systolic function is normal globally. Left ventricular diastolic function was not evaluated due to mitral stenosis. Mitral annular lateral E/e': 22.5. Mitral annular septal E/e': 20.0. Wall Motion: All scored segments are normal. RIGHT VENTRICLE The right ventricle is normal in size. Right ventricular systolic function is normal. RV systolic tissue Doppler velocity is 17.0 cm/s. Tricuspid annular displacement is 1.8 cm. Estimated right ventricular systolic pressure is 41 mmHg consistent with mild pulmonary hypertension. Estimated right atrial pressure is 3 mmHg based on IVC assessment. LEFT ATRIUM The left atrial cavity is moderately dilated. Pulmonary Veins: The pulmonary venous pattern showed normal systolic flow. RIGHT ATRIUM The right atrial cavity is normal in size. Inferior Vena Cava: The inferior vena cava appears normal measuring 1.6 cm. The vessel decreases greater than 50 percent with inspiration. MITRAL VALVE There is moderate mitral stenosis caused by doming. There is no mitral valve regurgitation. The peak mitral valve gradient is 22 mmHg. The mean mitral valve gradient is 13 mmHg. The pressure half time is 96 msec. The peak mitral E/A ratio is 1.05. The average mitral E/e' ratio is 21.2. The mitral flow deceleration time is 332 msec. MV area is 2.28 cm (1.24 cm /m ) by P1/2. TRICUSPID VALVE The tricuspid valve leaflets are structurally normal. There is trace (trace - 1+) tricuspid valve regurgitation. AORTIC VALVE The aortic valve cusps are structurally normal. There is no aortic valve stenosis. There is no aortic valve regurgitation. Tricuspid aortic valve. PULMONIC VALVE The pulmonic valve cusps are structurally normal. There is trace pulmonic valve regurgitation. AORTA The visualized aorta is normal in size. Measurements - Mid ascending aorta 2.9 cm. PULMONARY ARTERIES The pulmonary arteries are unseen or not interrogated. INTERATRIAL SEPTUM There is no evidence of intracardiac shunting as detected by Doppler. INTERVENTRICULAR SEPTUM There is no flow through the interventricular septum as detected by Doppler. PERICARDIUM There is no pericardial effusion. There is an epicardial fat pad. CONCLUSIONS: - Exam indication: Re-evaluation of known valvular heart disease with change in clinical status - The left ventricle is normal in size. There is no left ventricular hypertrophy. Left ventricular systolic function is normal. EF = 63 5% (2D biplane) Left ventricular diastolic function was not evaluated due to mitral stenosis. - The right ventricle is normal in size. Right ventricular systolic function is normal. - The left atrial cavity is moderately dilated. - There is moderate mitral stenosis caused by doming. MV area is 2.28 cm (1.24 cm /m ) by P1/2. The peak gradient is 22 mmHg and the mean gradient is 13 mmHg. - Estimated right ventricular systolic pressure is 41 mmHg consistent with mild pulmonary hypertension. Estimated right atrial pressure is 3 mmHg based on IVC assessment. - The patient has not had a prior CC echocardiographic exam for comparison. * * * Final * * * [facility] [employer] [facility] Image : [id number] [id number] Normal [facility] Magnesium SerPl-mCncon 06-09 Magnesium [Mass/Vol] 2.0 mg/dL Normal 1.7-2.3 [facility] Comment on above: Order Comment: Speci men Type: BLOOD SPECIMEN Ordering Facility: [facility] Address: [address] [place] [address] Performed By: #### 2 4321-2, 60707-8, 2777-1 #### [facility] CLIA [id number] [address] [facility] NUTRITIONon 06-09-2023 NUTRITION HNO ID: [id number] Author: Shahida Moreland RD Service: Nutrition Therapy Author Type: Registered Dietitian Type: Nutrition Filed: 06/09/2023 5:13 PM Note Text: NUTRITION THERAPY SCREEN NOTE SERVICE DATE: 06/09/2023 SERVICE TIME: 1:30 PM Stroke screen Care Plan: Continue current diet Regular Good intake so far. Continue cholesterol lowering medication Recommend wt loss of 5 - 10 % of CBW Discharge Recommendations: Diet Diet: HH 4 g sodium Monitor and Evaluation: Meet greater than 75% of estimated needs;Monitor bowel function Intake History: Nutrition Intake Prior to Admission: Greater than 75% estimated energy needs greater than 7 days Current Nutrition Intake: 100 % of breakfast this am Diet Orders (From admission, onward) Start Ordered 06/08/23 0015 DIET REGULAR START NOW 06/08/23 0000 Anthropometrics: Height: 154.9 cm (5' 1) Weight: 79.2 kg (174 lb 9.7 oz) Usual Weight: 77 kg (169 lb 12.1 oz) Usual Weight Obtained From: Care Everywhere Weight Change: Weight gain MNT Billing: $ Routine Care : 1-15 minutes SIGNATURE: Shahida Moreland RD PATIENT NAME: Lashon Tracey DATE: June 09, 2023 TIME: 5:09 PM 1074 Normal [facility] Phosphate SerPl-mCncon 06-09 Phosphate [Mass/Vol] 2.6 mg/dL Low 2.7-4.8 [facility] Comment on above: Order Comment: Speci men Type: BLOOD SPECIMEN Ordering Facility: [facility] Address: [address] [place] [address] Performed By: #### 2 4321-2, 35103-9, 2777-1 #### [facility] CLIA [id number] [address] OF [facility] THERAPY NTon 06-09-2023 THERAPY NT HNO ID: [id number] Author: Flynn Chaney, PT Service: Physical Therapy Author Type: Physical Therapist Type: Therapy (PT/OT/Speech/Resp) Filed: 06/09/2023 3:12 PM Note Text: Physical Therapy Evaluation SERVICE DATE: 06/09/2023 SERVICE TIME: 1424 to 1450 ROOM: [place] [address] Recommended Discharge Disposition: Acute Rehab Recommended Discharge Disposition Comments: Pt previously fully independent at home, now with 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 Recommended Discharge Disposition Due to: Patient requires an active, intensive rehabilitation therapy program due to:, ataxia, decline in functional status requiring daily skilled care, coordination deficits, ongoing intervention of multiple therapy disciplines PT 6 Clicks Score: 15 Precautions/Activity Restrictions: Fall Risk Current Hospital Course: CT negative, MRI showed acute right cerebellar infarct, old right frontal infarct Reason for Hospital Admission: cerebellar stroke Relevant Past Medical History: CVA, MV stenosis, OA Response to Therapy Interventions: Good Participation in Activities Continued Skilled Needs Due to: Functional Mobility/Skill Impairments, Safety Concerns Physical Therapy Problem List: Safety Deficits, Impaired Self Care, Decreased Strength, Functional Mobility Impairment, Balance Impaired, Sensory Deficit Treatment Interventions: Education, Strengthening, Functional Mobility Training, Balance Training, Neuromuscular Re-education, Self Care / Home Management Home Environment Patient Lives With: Self/Alone Assistance Available: Part-Time (family) Entry To Home: No Stairs Number Of Stairs To Bed/Bath: 0 Tub/Shower Type: tub shower with grab bars Equipment Owned: Rollator, Grab Bars- Shower Prior Functional Level: Within Functional Limits Prior Functional Level Comments: Prior to admit pt was fully independent without assistive devices, able to complete ADLs/IADLs. Drives. Subjective: Pt pleasant and agreeable to PT. CURRENT FUNCTIONAL STATUS: Most recent performance Current Functional Mobility Assist Level Additional Information Rolling Supine to Sit Stand By Assistance Sit to Supine Scooting Sit to Stand Minimal Assistance, Additional Information struggles without UE support Stand to Sit Minimal Assistance, Additional Information cues for safe positioning to surface, reaching back and sitting slowly Bed to Chair Toilet/Commode Gait Moderate Assistance, Additional Information Gait Device: Wheeled Walker, Hand Held Assist Gait Distance (feet): intervals of 30-40 ft demonstrates variable foot placement on left and tends to drag left foot with limited foot clearance; stability improves with walker, though needs cues to manage properly and tends to position herself off-center to the left in the frame; Stairs Curb Step Car Transfer Blank tristan indicate activity not attempted Gait Deviations Left Lower Extremity: Foot clearance decreased, Heel strike during initial stance decreased General Deviations/Observatio ns: Jessica decreased, Lateral sway increased, Loss of Balance, Step length decreased, Ataxic gait Range of Motion: WFL Strength: Right LE Measurement, Left LE Measurement Right Hip Flexion Strength: 4-/5 Right Knee Flexion Strength: 4+/5 Right Knee Extension Strength: 4+/5 Right Ankle Dorsiflexion Strength: 5/5 Left Hip Flexion Strength: 4-/5 Left Knee Flexion Strength: 4/5 Left Knee Extension Strength: 4+/5 Left Ankle Dorsiflexion Strength: 5/5 Balance: Static Standing, Dynamic Standing Static Standing Balance: Fair Patient able to maintain balance with handhold support, may require occasional minimal assistance Dynamic Standing Balance: Poor Patient unable to accept challenge or move without loss of balance -HLM: 7: Walk 25 feet or more Functional Performance Test Functional Performance Test: Short Form Schneider Balance Scale Short Form Schneider Balance Scale Total Score (< 23 = Fall Risk): 16 Learning/Educational Needs: Discharge Plan, Equipment, Functional Activities/Mobility, Plan of Care, Rehabilitation Techniques and Procedures, Safety Goals for Plan of Care: Patient/Caregiver Goals: Walk, Care For Self Able to Perform HEP with: Independent Transfer Supine to/from Sit with: Independent Transfer Sit to/from Stand with: Stand By Assistance Ambulate with: Contact Guard Assistance Distance: 100 Device: Wheeled Walker Goal: score >18 on Short Form Schneider Rehab Potential: Good Patient will be discontinued from Physical Therapy when no further skilled needs are identified in this setting. PLAN: PT Frequency: 5 Times Per Week (3-5) Plan of Care developed with: Patient TREATMENT INTERVENTIONS: Therapy Diagnosis: Reduced mobility-other Interventions Provided: Evaluation, Therapeutic Activity (01074) $ E (more content not included)... Normal [facility] THERAPY NT HNO ID: [id number] Author: Ginna Turner CCC-DOT COMPLIANCE SPECIALIST Service: Speech/Swallow Author Type: Speech Language Pathologist Type: Therapy (PT/OT/Speech/Resp) Filed: 06/09/2023 10:32 AM Note Text: Speech Therapy Speech Evaluation SERVICE DATE: 06/09/2023 SERVICE TIME: 0945 to 1000 ROOM: [id number] IMPRESSION: Functional communication without limitations in: Speech, Language, Cognition Recommended Discharge Disposition: Home Current Hospital Course: Patient admitted on 06/07. 06/07 MRI brain: left cerebellar stroke. Reason for Hospital Admission: Cerebellar stroke Rehabilitation Precautions: None Reason for Speech Therapy Consult: Stroke: assess speech/cognition Relevant Past Medical History: Stroke (2021), TIA Response to Therapy Interventions: Good Participation in activities, Receptive Family / Caregivers Subjective: Patient alert and able to participate in therapy. Family present. Current Status Oral Hygiene: Clear, moist oral cavity Dentition: Retains Natural Dentition Current Feeding Method: Oral Current Diet Textures: Regular Consistency, Thin Liquids IDDSI Level 0 Current Level Of Communication: Verbal Current Management Of Secretions: Able to expectorate adequately Oral Motor Exam: Within Functional Limits Cognition Cognitive Status: Within Functional Limits For Current Session Speech/Voice/Language Speech Production: Within Functional Limits Voice Assessment: No Expressive and Receptive Language: Within Functional Limits Fluency: No - Patient in bed upon arrival, alert and able to participate in therapy - Assessed speech, language, and cognitive skills: - Reading/writing: WFL - Insight: Good - Pragmatics: Normal - No further speech therapy indicated at this time - Will discharge from speech therapy at this point Patient /Caregiver Goals: Go Home Speech Rehab Potential: Good Patient will be discontinued from speech therapy when no further skilled needs are identified in this setting. PLAN: ST Frequency: Discontinue Therapy Services Reasons Inpatient Therapy Services Discontinued: Patient appears safe and appropriate re: communication, cognition, and swallow function with the ability to return to a baseline level of function Plan of Care Developed with: Patient, Family Results and Recommendations Discussed With: Patient, Family, Nurse TREATMENT INTERVENTIONS: Therapy Diagnosis: No Skilled Need Interventions Provided: Speech Language Eval (37112) $ Speech Language Eval (32792) Billed Units: 1 unit Training and education provided in: Cognitive Linguistic Strategies, Expressive Language Skills, Receptive Language Skills, Motor Speech Skills The following therapeutic skills were used:: Verbal cuing, Discharge planning, Education on role of discipline / importance of activity, Family / caregiver counseling / training Skilled Treatment Time (minutes): 15 Home Environment Prior Functional Level: Within Functional Limits Assistance Available: PRN Prior Swallowing Function/Diet Textures: Regular Consistency, Thin Liquids IDDSI Level 0 Please see discipline specific clinical documentation flowsheet for complete details for this therapy evaluation/treatment. SIGNATURE: Ginna Turner [facility]-DOT COMPLIANCE SPECIALIST PATIENT NAME: Lashon Tracey DATE: June 09, 2023 TIME: 10:32 AM Normal [facility] BETA 2 GLYCOPROTEIN, IGGon 1 08-08-2022 Beta 2 glycoprotein 1 IgG IA Qn <9 Normal <20 [facility] Comment on above: Order Comment: Speci men Type: BLOOD SPECIMENOrdering Facility: [facility] Address: [address] [place] [address], [place] [address] Result Comment: <20 SGU Negative 20-80 SGU Low Positive >80 SGU High Positive These results were obtained with the [employer] QUANTA Lite B2 GPI IgG HUSSEIN. B2 GPI IgG values obtained with different manufacturers' assay methods may not be used interchangeably. The magnitude of the reported IgG levels cannot be correlated to an endpoint titer. Performed By: #### C MIQUELM, BETA2M, BETA2G, CARDIG, 5076-5 ####[facility]CL[facility] [id number] [place] [address] [place] BETA 2 GLYCOPROTEIN, IGMon 1 08-08-2022 Beta 2 glycoprotein 1 IgM IA Qn <9 Normal <20 [facility] Comment on above: Order Comment: Speci men Type: BLOOD SPECIMENOrdering Facility: [facility] Address: [address] [place] [address] Result Comment: <20 SMU Negative 20-80 SMU Low Positive >80 SMU High positive These results were obtained with the DearJaneA Lite B2 GPI IgM HUSSEIN. B2 GPI IgM values obtained with different manufacturers' assay methods may not be used interchangeably. The magnitude of the reported IgM levels cannot be correlated to an endpoint titer. Performed By: #### C ARDIM, BETA2M, BETA2G, CARDIG, 5076-5 ####[facility] LABCL[facility] [id number] [place] [address] [place] Basic Metabolic Profile (BMP )on 06-08-2023 BUN Normal 7-18 [facility] Comment on above: Result Comment: Canc elled via OM: Order cancelled - Patient discharged Performed By: #### L 500.2500, L100.0100 ####[facility] [address] [place], [address] BUN/CRE Normal 10-20 [facility] Comment on above: Result Comment: Canc elled via OM: Order cancelled - Patient discharged Performed By: #### L 500.2500, L100.0100 ####[facility] [address] [place], [address] CA,Total Normal 8.5-10.1 [facility] Comment on above: Result Comment: Canc elled via OM: Order cancelled - Patient discharged Performed By: #### L 500.2500, L100.0100 ####[facility] [address] [place], [address] CL Normal 98-107 [facility] Comment on above: Result Comment: Canc elled via OM: Order cancelled - Patient discharged Performed By: #### L 500.2500, L100.0100 ####[facility] [address] [place], [address] CO2 Normal 21.0-32.0 [facility] Comment on above: Result Comment: Canc elled via OM: Order cancelled - Patient discharged Performed By: #### L 500.2500, L100.0100 ####[facility] [address] [place], [address] CREAT,SERUM Normal 0.55-1.02 [facility] Comment on above: Result Comment: Canc elled via OM: Order cancelled - Patient discharged Performed By: #### L 500.2500, L100.0100 ####[facility] [address] [place], [address] EST GFR Normal >60 [facility] Comment on above: Result Comment: Canc elled via OM: Order cancelled - Patient discharged Performed By: #### L 500.2500, L100.0100 ####[facility] [address] [place], [address] EST GFR - AA Normal >60 [facility] Comment on above: Result Comment: Canc elled via OM: Order cancelled - Patient discharged Performed By: #### L 500.2500, L100.0100 ####[facility] [address] [place], [address] GAP Normal 5-15 [facility] Comment on above: Result Comment: Canc elled via OM: Order cancelled - Patient discharged Performed By: #### L 500.2500, L100.0100 ####[facility] [address] [place], [address] GLU Normal 74-106 [facility] Comment on above: Result Comment: Canc elled via OM: Order cancelled - Patient discharged Performed By: #### L 500.2500, L100.0100 ####[facility] [address] [place], [address] Potassium Normal 3.5-5.1 [facility] Comment on above: Result Comment: Canc elled via OM: Order cancelled - Patient discharged Performed By: #### L 500.2500, L100.0100 ####[facility] [address] [place], [address] Basic Metabolic Profile (BMP) Normal 136-145 [facility] Comment on above: Result Comment: Canc elled via OM: Order cancelled - Patient discharged Performed By: #### L 500.2500, L100.0100 ####[facility] [address] [place], [address] Basic metabolic 2000 panelon 06-08-2023 Anion gap [Moles/Vol] 9 mmol/L Normal 9-18 [facility] Comment on above: Order Comment: Speci men Type: BLOOD SPECIMEN Ordering Facility: [facility] Address: [address] [place] [address] Performed By: #### 1 9123-9, 48681-6, 2776-1 #### [facility] CLIA [id number] 1 [place] [address] [place] Calcium [Mass/Vol] 8.6 mg/dL Normal 8.5-10.2 [facility] Comment on above: Order Comment: Speci men Type: BLOOD SPECIMEN Ordering Facility: [facility] Address: [address] [place] [address] Performed By: #### 1 9123-9, 22336-6, 277-1 #### [facility] CLIA [id number] 1 [place] [address] [place] Chloride [Moles/Vol] 106 mmol/L High 97-105 [facility] Comment on above: Order Comment: Speci men Type: BLOOD SPECIMEN Ordering Facility: [facility] Address: [address] [place] [address] Performed By: #### 1 9123-9, 83600-1, 2776-07 #### [facility] CLIA [id number] [address] CO2 [Moles/Vol] 27 mmol/L Normal 22-30 [facility] Comment on above: Order Comment: Speci men Type: BLOOD SPECIMEN Ordering Facility: [facility] Address: [address] [place] [address] Performed By: #### 1 9123-9, 95584-6, 2776-07 #### [facility] CLIA [id number] [address] Creatinine [Mass/Vol] 1.08 mg/dL High 0.58-0.96 [facility] Comment on above: Order Comment: Speci men Type: BLOOD SPECIMEN Ordering Facility: [facility] Address: [address] [place] [address] Performed By: #### 1 9123-9, 96980-0, 2776-07 #### [facility] CLIA [id number] [address] Creatinine and Glomerular filtration rate.predicted panel (S/P/Bld) 51 mL/min/1.73m??? Low >=60 [facility] Comment on above: Order Comment: Speci men Type: BLOOD SPECIMEN Ordering Facility: [facility] Address: [address] [place] [address] Result Comment: Carmen mated Glomerular Filtration Rate (eGFR) is calculated using the 2020 CKD-EPI creatinine equation. This equation utilizes serum creatinine, sex, and age as parameters. The creatinine assay has traceable calibration to isotope dilution-mass spectrometry. Refer to KDIGO guidelines for clinical interpretation. In patients with unstable renal function, e.g. those with acute kidney injury, the eGFR may not accurately reflect actual GFR. Performed By: #### 1 9123-9, 73643-4, 2776- #### [facility] CLIA [id number] [address] Glucose [Mass/Vol] 91 mg/dL Normal 74-99 [facility] Comment on above: Order Comment: Odette diallo Type: BLOOD SPECIMEN Ordering Facility: [facility] Address: [address] [place] [address] Result Comment: The [place] Diabetes Association (ADA) provides guidance for cutoff values for fasting glucose and random glucose. The ADA defines fasting as no caloric intake for at least 8 hours. Fasting plasma glucose results between 100 to 125 mg/dL indicate increased risk for diabetes (prediabetes). Fasting plasma glucose results greater than or equal to 126 mg/dL meet the criteria for diagnosis of diabetes. In the absence of unequivocal hyperglycemia, results should be confirmed by repeat testing. In a patient with classic symptoms of hyperglycemia or hyperglycemic crisis, random plasma glucose results greater than or equal to 200 mg/dL meet the criteria for diagnosis of diabetes. Reference: Standards of Medical Care in Diabetes 2016, [place] Diabetes Association. Diabetes Care. 2016.39(Suppl 1). Performed By: #### 1 9123-9, 94292-7, 2776-07 #### [facility] CLIA [id number] [address] [place] Potassium [Moles/Vol] 3.6 mmol/L Low 3.7-5.1 [facility] Comment on above: Order Comment: Odette diallo Type: BLOOD SPECIMEN Ordering Facility: [facility] Address: [address] [place] [address] Performed By: #### 1 9123-9, 61119-7, 2776-07 #### [facility] CLIA [id number] 1 [place] [address] [place] Sodium [Moles/Vol] 142 mmol/L Normal 136-144 [facility] Comment on above: Order Comment: Odette diallo Type: BLOOD SPECIMEN Ordering Facility: [facility] Address: [address] [place] [address] Performed By: #### 1 9123-9, 87167-2, 2776-07 #### [facility] CLIA [id number] [address] [place] Urea nitrogen [Mass/Vol] 17 mg/dL Normal 7-21 [facility] Comment on above: Order Comment: Amandajamar diallo Type: BLOOD SPECIMEN Ordering Facility: [facility] Address: [address] [place] [address] Performed By: #### 1 9123-9, 99897-4, 2777-1 #### [facility] CLIA [id number] [address] [place] CARDIOLIPIN IGG ABSon 2022 Cardiolipin IgG IA Qn (S) <9.0 Normal <15.0 [facility] Comment on above: Order Comment: Amandajamar diallo Type: BLOOD SPECIMENOrdering Facility: [facility] Address: [address] [place] [address] Result Comment: <15 GPL Negative 15-20 GPL Indeterminate >20 GPL Positive The following results were obtained with the [employer] QUANTA Lite CARMEL IgG III HUSSEIN. Cardiolipin IgG values obtained with the different manufacturers' assay methods may not be used interchangeably. The magnitude of the reported IgG levels cannot be correlated to an endpoint titer. Performed By: #### C ARDIM, BETA2M, BETA2G, CARDIG, 5076-5 ####[facility] LABCLIA [id number] [place] [address] [place] CARDIOLIPIN IGM ABSon 2022 Cardiolipin IgM IA Qn (S) 17.5 MPL High <12.5 [facility] Comment on above: Order Comment: Odette yoel Type: BLOOD SPECIMENOrdering Facility: [facility] Address: [address] [place] [address] Result Comment: <12. 5 MPL Negative 12.5-20 MPL Indeterminate >20 MPL Positive The following results were obtained with the [employer] QUANTA Lite CARMEL IgM III HUSSEIN. Cardiolipin IgM values obtained with the different manufacturers' assay methods may not be used interchangeably. The magnitude of the reported IgM levels cannot be correlated to an endpoint titer. ??? Performed By: #### C ARDIM, BETA2M, BETA2G, CARDIG, 5076-5 ####[facility] LABCLIA [id number] [address] [address] [place] CBC W/Diff, Automatedon 11-1 Absolute Neut Normal 2.0-7.7 [facility] Comment on above: Result Comment: Canc elled via OM: Order cancelled - Patient discharged Performed By: #### L 500.2500, L100.0100 ####[facility] [address] [place], [address] HCT Normal 37-47 [facility] Comment on above: Result Comment: Canc elled via OM: Order cancelled - Patient discharged Performed By: #### L 500.2500, L100.0100 ####[facility] [address] [place], [address] HGB Normal 12.0-15.0 [facility] Comment on above: Result Comment: Canc elled via OM: Order cancelled - Patient discharged Performed By: #### L 500.2500, L100.0100 ####[facility] [address] [place], [address] MCH Normal 27.0-32.0 [facility] Comment on above: Result Comment: Canc elled via OM: Order cancelled - Patient discharged Performed By: #### L 500.2500, L100.0100 ####[facility] [address] [place], [address] MCHC Normal 32-36 [facility] Comment on above: Result Comment: Canc elled via OM: Order cancelled - Patient discharged Performed By: #### L 500.2500, L100.0100 ####[facility] [address] [place], [address] MCV Normal 81-99 [facility] Comment on above: Result Comment: Canc elled via OM: Order cancelled - Patient discharged Performed By: #### L 500.2500, L100.0100 ####[facility] [address] [place], [address] NEUT% Normal 47-70 [facility] Comment on above: Result Comment: Canc elled via OM: Order cancelled - Patient discharged Performed By: #### L 500.2500, L100.0100 ####[facility] [address] [place], [address] PLT Normal 150-450 [facility] Comment on above: Result Comment: Canc elled via OM: Order cancelled - Patient discharged Performed By: #### L 500.2500, L100.0100 ####[facility] [address] [place], [address] RBC Normal 4.2-5.4 [facility] Comment on above: Result Comment: Canc elled via OM: Order cancelled - Patient discharged Performed By: #### L 500.2500, L100.0100 ####[facility] [address] [place], [address] RDW CV Normal 11.6-14.6 [facility] Comment on above: Result Comment: Canc elled via OM: Order cancelled - Patient discharged Performed By: #### L 500.2500, L100.0100 ####[facility] [address] [place], [address] RDW SD Normal 35.1-43.9 [facility] Comment on above: Result Comment: Canc elled via OM: Order cancelled - Patient discharged Performed By: #### L 500.2500, L100.0100 ####[facility] [address] [place], [address] WBC Normal 4.4-11.0 [facility] Comment on above: Result Comment: Canc elled via OM: Order cancelled - Patient discharged Performed By: #### L 500.2500, L100.0100 ####[facility] [address] [place], [address] CBC panel Auto (Bld)on 06-08 Erythrocyte distribution width (RBC) [Ratio] 13.2 % Normal 11.5-15.0 [facility] Comment on above: Order Comment: Speci men Type: BLOOD SPECIMENOrdering Facility: [facility] Address: [address] [place] [address] Performed By: #### 5 8410-2 ####[facility]ATORYCLIA [id number] [address] [place] Hematocrit (Bld) [Volume fraction] 34.2 % Low 36.0-46.0 [facility] Comment on above: Order Comment: Speci men Type: BLOOD SPECIMENOrdering Facility: [facility] Address: [address] [place] [address] Performed By: #### 5 8410-2 ####[facility]ORYCLIA [id number] [address] [place] Hemoglobin (Bld) [Mass/Vol] 11.2 g/dL Low 11.5-15.5 [facility] Comment on above: Order Comment: Speci men Type: BLOOD SPECIMENOrdering Facility: [facility] Address: [address] [place] [address] Performed By: #### 5 8410-2 ####[facility]ATORYCLIA [id number] [address] [place] MCH (RBC) [Entitic mass] 30.4 pg Normal 26.0-34.0 [facility] Comment on above: Order Comment: Speci men Type: BLOOD SPECIMENOrdering Facility: [facility] Address: [address] [place] [address] Performed By: #### 5 8410-2 ####[facility] LABORATORYCLIA [id number] [address] [place] MCHC (RBC) [Mass/Vol] 32.7 g/dL Normal 30.5-36.0 [facility] Comment on above: Order Comment: Speci men Type: BLOOD SPECIMENOrdering Facility: [facility] Address: [address] [place] [address] Performed By: #### 5 8410-2 ####[facility] LABORATORYCLIA [id number] [address] [place] MCV (RBC) [Entitic vol] 92.9 fL Normal 80.0-100.0 A [facility] Comment on above: Order Comment: Speci men Type: BLOOD SPECIMENOrdering Facility: [facility] Address: [address] [place] [address] Performed By: #### 5 8410-2 ####[facility] LABORATORYCLIA [id number] [address] [place] Nucleated RBC (Bld) [#/Vol] 10*3/uL Normal <0.01 [facility] Comment on above: Order Comment: Speci men Type: BLOOD SPECIMENOrdering Facility: [facility] Address: [address] [place] [address] Performed By: #### 5 8410-2 ####[facility] LABORATORYCLIA [id number] [address] Platelet mean volume (Bld) [Entitic vol] 10.1 fL Normal 9.0-12.7 [facility] Comment on above: Order Comment: Speci men Type: BLOOD SPECIMENOrdering Facility: [facility] Address: [address] [place] [address] Performed By: #### 5 8410-2 ####[facility] LABORATORYCLIA [id number] [address] [place] Platelets (Bld) [#/Vol] 233 10*3/uL Normal 150-400 [facility] Comment on above: Order Comment: Speci men Type: BLOOD SPECIMENOrdering Facility: [facility] Address: [address] [place] [address] Performed By: #### 5 8410-2 ####[facility] LABORATORYCLIA [id number] [address] [place] RBC (Bld) [#/Vol] 3.68 10*6/uL Low 3.90-5.20 [facility] Comment on above: Order Comment: Speci men Type: BLOOD SPECIMENOrdering Facility: [facility] Address: [address] [id number] Performed By: #### 5 8410-2 ####[facility] LABORATORYCLIA [id number] [address] [place] WBC (Bld) [#/Vol] 8.47 10*3/uL Normal 3.70-11.00 [facility] Comment on above: Order Comment: Speci men Type: BLOOD SPECIMENOrdering Facility: [facility] Address: [address] [id number] Performed By: #### 5 8410-2 ####[facility] LABORATORYCLIA [id number] [address] [id number] [facility] CONSULTon 06-08-2023 CONSULT HNO ID: [id number] Author: Jose Delcid MD Service: Neurology General Author Type: Physician Type: Consults Filed: 06/08/2023 11:23 AM Note Text: NEURO STROKE INITIAL CONSULT SERVICE DATE: 06/08/2023 SERVICE TIME: 10 am REQUESTING PHYSICIAN: Kp Sauceda PCP: No primary care provider on file. REASON FOR STROKE EVALUATION: Acute stroke Subjective HPI: 83 year old female, with known history of rheumatic heart disease, mitral valve stenosis, stroke 18 months ago for which she has been maintained on Aspirin, who, on Friday06/06/23 at 4 PM she developed acute unsteadiness and mild headache and was admitted to [facility]. 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 Plavix was added to the Aspirin and patient was transferred to [facility] NSICU for further investigation and management. No history of trauma, falls or whiplash. No history of neck pain. No history of neck manipulation. However, she has a history of 2 miscarriages in the past Pre-admission Was patient on antithrombotic agent prior to admission: Antiplatelet Antiplatelet: Aspirin Was patient on lipid lowering agent prior to admission: No Pre-morbid mRS: Premorbid Modified Muncy Score: 0 - No symptoms at all PAST MEDICAL HISTORY Diagnosis Date Heart disease, rheumatic Osteoarthritis of multiple joints Pulmonary hypertension (HCC) Stroke (cerebrum) (HCC) 2021 TIA (transient ischemic attack) History reviewed. No pertinent surgical history. No family history on file. ALLERGIES No Known Allergies MEDICATION Pre-admission No medications prior to admission. Current No prescriptions on file. REVIEW OF SYSTEMS COMPLETE REVIEW OF SYSTEMS PAIN ASSESSMENT: Negative for pain, history of chronic pain, or current treatment for a chronic pain condition. Negative for pain, history of chronic pain, or current treatment for a chronic pain condition GENERAL: No weight loss, malaise or fevers HEENT: No changes in hearing or vision, no nose bleeds or other nasal problems. MUSCULOSKELETAL: Negative for joint pain or swelling, back pain or muscle pain. SKIN: Negative for lesions, rash, and itching. NEURO: SEE HPI Objective PHYSICAL EXAM Vital Signs: BP 123/73 Pulse 72 Temp 36.5 ?C (97.7 ?F) (Temporal) Resp 13 Ht 154.9 cm (5' 1) Wt 79.2 kg (174 lb 9.7 oz) SpO2 99% BMI 32.99 kg/m? GENERAL: Awake/easily arousable HEENT: Normocephalic/atrauma tic EXTREMITIES: No cyanosis. No calf tenderness SKIN: Skin color, texture, turgor normal. No rashes or lesions. MUSCULOSKELETAL Spine range of motion normal. Muscular strength intact. NEUROLOGICAL: LOC: 0 - alert and responsive 0 LOC Questions: 0 - both correct 0 LOC Commands: 0 - both correct 0 Best Gaze: 0 - normal gaze 0 Visual: 0 - no visual loss 0 Facial Palsy: 0 - normal 0 Motor Left Arm: 0 - no drift 0 Motor Right Arm: 0 - no drift 0 Motor Left Le - no drift 0 Motor Right Le - no drift 0 Limb Ataxia: 1 - ataxia in upper or lower extremity 1 Sensory: 0 - normal 0 Best Language: 0 - normal 0 Dysarthria: 0 - normal 0 Extinction and Inattention: 0 - normal, none detected (or visual loss alone) 0 Initial NIHSS Score: 1 (06/08/23 1100 : Jose Delcid MD) 1 MENTAL STATUS: Alert, oriented to person, place and time and Follows commands CRANIAL NERVES: EOM's intact, Visual tristan intact to confrontation, Extraocular movements intact, Facial sensation intact, Face symmetric, No facial droop or ptosis, No dysarthria, Tongue protrudes midline, and Shoulder shrug intact and symmetric MOTOR: No drift and Normal tone MOTOR STRENGTH: Upper and lower extremity 5/5 bilaterally SENSATION: Intact light touch COORDINATION: Overshoots on the left upper limb, in the finger to nose examination GAIT: Not assessed DATA: Diagnostic tests reviewed for today's visit: Lipids, HbA1c, Recent Labs 06/08/23 0014 CHOL 184 HDL 51 LDL 110* TG 114 CMP, CBC, Coags Recent Labs 06/08/23 0356 NA 142 K 3.6* CHLOR 106* CO2 27 BUN 17 CREAT 1.08* GLUC 91 CA 8.6 MG 2.2 P 2.7 WBC 8.47 HB 11.2* HCT 34.2* PLT 233 Cardiac Enzymes Most recent labs and imaging results. Most recent labs Most recent imaging MRI brain: acute whole left PICA distribution stroke. Remote right MCA distribution stroke CT angiogram of brain and neck: partial thrombus of left vert artery and L PICA Echocardiogram: Mitral valve with severe stenosis and doming hockey sticking Creatinine 1.08, LDL 110. CBC mild anemia STROKE CARE PATH CHANG METRICS Initial NIHSS Score: 1 Date Patient Last Known Well: 06/06/23 Time Patient Last Known Well: 1600 Date of Patient Arrival at THIS Facility: 06/08/23 Time of Patient Arrival at THIS Facility: [address] Imaging Review: CT Imaging reviewed, POSITIVE abnormal f (more content not included)... Normal [facility] CT BRAIN WO IVCONon 06-08-20 CT BRAIN WO IVCON * * *Final Report* * * DATE OF EXAM: Jun 08 2023 5:38AM [facility] 0504 - CT BRAIN WO IVCON / PROCEDURE REASON: Stroke, follow up * * * * Physician Interpretation * * * * EXAMINATION: CT BRAIN WO IVCON CLINICAL HISTORY: Stroke follow-up. TECHNIQUE: Serial axial images without IV contrast were obtained from the vertex to the foramen magnum. MQ: [id number]_3 CT Radiation dose: Integrated Dose-Length Product (DLP) for this visit = 718 mGy*cm CT Dose Reduction Employed: Iterative recon COMPARISON: CT and MRI from outside facility dated 05/07/2023. RESULT: Psychological Tests Sales Agent (topogram) images: No additional findings. Post-operative change: None. Acute change: Redemonstration of left cerebellar hypoattenuation, shown to represent a left cerebellar infarct on recent MRI. No internal hemorrhage identified. Hemorrhage: No evidence of acute intracranial hemorrhage. ECASS hemorrhagic transformation score: Not Applicable Mass Lesion / Mass Effect: There is no evidence of an intracranial mass or extraaxial fluid collection. No significant mass effect. Chronic change: Scattered patchy foci of low attenuation are present within supratentorial white matter which is a nonspecific finding but likely represents mild microvascular ischemia. Encephalomalacia within the right frontotemporal region consistent with remote infarct. Parenchyma: There is mild generalized volume loss. The brain parenchyma is otherwise within normal limits for age. Ventricles: Ventricular enlargement concordant with the degree of parenchymal volume loss. Paranasal sinuses and skull base: The visualized paranasal sinuses are grossly clear. The skull base and imaged soft tissues are unremarkable. IMPRESSION: No significant interval change in acute left cerebellar infarct. Director Of Casework Department: MANUEL Transcribe Date/Time: Jun 08 2023 5:39A Dictated by : TANIA LOGAN MD This examination was interpreted and the report reviewed and electronically signed by: TANIA LOGAN MD on Jun 08 2023 5:47AM EST [id number] N Normal [facility] Cardiolipin IgA Ser IA-aCnco n 06-08-2023 Cardiolipin IgA IA Qn (S) <9.0 Normal <12.0 [facility] Comment on above: Order Comment: Odette diallo Type: BLOOD SPECIMENOrdering Facility: [facility] Address: [address] [place] [address] Result Comment: <12 APL Negative 12-20 APL Indeterminate >20 APL Positive The following results were obtained with the [employer] QUANTA Lite CARMEL IgA III HUSSEIN. Cardiolipin IgA values obtained with the different manufacturers' assay methods may not be used interchangeably. The magnitude of the reported IgA levels cannot be correlated to an endpoint titer. Performed By: #### C ARDIM, BETA2M, BETA2G, CARDIG, 5076-5 ####[facility] LABCLIA [id number] [place] [address] [place] HIGH SENSITIVITY TROPONIN To n 06-08-2023 Troponin T.cardiac High sensitivity method [Mass/Vol] 16 ng/L High <12 [facility] Comment on above: Order Comment: Speci men Type: BLOOD SPECIMEN [facility] Facility: [facility] Address: [address], [place] [address] Result Comment: When assessing risk for acute coronary syndromes: In patients undergoing blood draw greater than or equal to 2 hours from symptom onset, with history of very low to moderate risk and non-ischemic ECG, an initial hs-Troponin T less than 12 ng/L AND a 1 hour delta hs-Troponin T less than 3 ng/L should be considered very low risk for 30 day MACE. Performed By: #### H STNT #### [facility] CLIA [id number] [address] STATES OF [facility] HISTORY PHYSICALon HISTORY PHYSICAL HNO ID: [id number] Author: Daniella Strickland APRN.[employer] Service: Neurology ICU Author Type: Nurse Practitioner Type: HANDP Filed: 06/08/2023 6:22 AM Note Text: Attestation signed by Brandon Bishop MD at 06/08/2023 8:05 AM NIHSS [address] reviewed Left PICA stroke DAPT Stroke work up Echo Statin PT, oT Transfer to floor Stroke neurology to follow AAO -3 Mild left UE dysmetria subtle Motor 5/5 HELENA No nystagmus Denies STAFF COORDINATION OF CRITICAL CARE This patient has a high probability of sudden, clinically significant deterioration, which requires the highest level of physician preparedness to intervene urgently. I managed/supervized life or organ supporting interventions that required frequent physician assessment. I devoted my full attention to the direct care of this patient for the amount of time indicated below. Time I spent with family or surrogate(s) is included only if the patient was incapable of providing the necessary information or participating in medical decision making. Time devoted to teaching or to any procedures I billed separately is not included. Brandon Bishop MD STAFF MACHINE DESIGN [facility] DATE : June 08, 2023 SERVICE DATE: 06/08/2023 SERVICE TIME: 0450 AM NEUROLOGICAL INTENSIVE CARE UNIT HISTORY AND PHYSICAL (STROKE CARE PATH) REASON FOR STROKE EVALUATION: ataxia, nausea, GOLDMAN REASON FOR NEUROLOGICAL ICU ADMISSION: stroke management, cerebral edema Stroke Mechanism: METRICS: Initial NIHSS Score: 1 Hamel Coma Scale Totals (Calculated): 15 Date Patient Last Known Well: 06/05/23 Date of Patient Arrival at THIS Facility: 06/07/23 Time of Patient Arrival at THIS Facility: 2346 Pre-admission: Was patient on antithrombotic agent prior to admission: Antiplatelet Antiplatelet: Aspirin Premorbid Modified Mary Score: 0=0 - No symptoms at all Subjective HPI: 83 yo female with history of stroke 1 year ago, rheumatic fever with MV stenosis, PAH, OA presented to [place] ED with symptoms of nausea, GOLDMAN, ataxia and pre-syncopal feeling that started on 06/05. She was admitted to their observation unit after initial [facility] showed no acute findings. MRI brain showing right cerebellar infarct. [place] consulted with Tele Neurology who recommended tertiary center with Neurosurgery capabilities. Stroke work up completed at [place] including vessel study and Echocardiogram. Overall patient symptoms are improving. She was started on DAPT (given loading dose at OSH) and Lipitor. Previously taking asa monotherapy. Ad[facility] edema risk and Neurology consultation. PAST MEDICAL HISTORY Diagnosis Date Heart disease, rheumatic Osteoarthritis of multiple joints Pulmonary hypertension (HCC) Stroke (cerebrum) ([facility]) 2021 TIA (transient ischemic attack) History reviewed. No pertinent surgical history. No family history on file. MEDICATIONS Prior to Admission No medications prior to admission. ALLERGIES No Known Allergies COMPLETE REVIEW OF SYSTEMS The following systems were reviewed with the patient, and are unremarkable other than as described below. SYSTEMIC: No fever, chills, or change in weight or appetite HEENT: No recent change in vision or hearing. GI: See HPI : No recent hematuria or dysuria. SKIN: No recent itching or eruption. PSYCH: No recent active anxiety or depression. HEMATOLOGY/ONCOLOGY: No recent diagnosis of bleeding or cancer. ENDOCRINE: No recent diagnosis of DM or thyroid disease. RHEUMATOLOGY: No recent active connective tissue disease. Objective BP 159/78 Pulse 69 Resp 14 Ht 154.9 cm (5' 1) Wt 79.2 kg (174 lb 9.7 oz) SpO2 96% BMI 32.99 kg/m? PHYSICAL EXAM: GCS: Eyes: 4. Spontaneous Verbal: 5: Oriented Motor: 6: Obeys Motor commands Total: 15 CV: HRR Pulm: even and unlabored on RA GI/: soft; NT Skin/Extremities: Edema- No Peripheral pulses- Present all extremities Wounds/Drsgs- No Breakdown- No NEUROLOGICAL: MOTOR STRENGTH: Upper and lower extremity 5/5 bilaterally SENSATION: Intact light touch COORDINATION: Dysmetria noted in L F>N iNIHSS LOC: 0 - alert and responsive 0 LOC Questions: 0 - both correct 0 LOC Commands: 0 - both correct 0 Best Gaze: 0 - normal gaze 0 Visual: 0 - no visual loss 0 Facial Palsy: 0 - normal 0 Motor Left Arm: 0 - no drift 0 Motor Right Arm: 0 - no drift 0 Motor Left Le - no drift 0 Motor Right Le - no drift 0 Limb Ataxia: 1 - ataxia in upper or lower extremity 1 Sensory: 0 - normal 0 Best Language: 0 - normal 0 Dysarthria: 0 - normal 0 Extinction and Inattention: 0 - normal, none detected (or visual loss alone) 0 Initial NIHSS Score: 1 (06/08/23 0500 : Re (more content not included)... Normal [facility] HbA1c (Bld)on 06-08-2023 Average glucose Estimated from glycated hemoglobin (Bld) [Mass/Vol] 111 mg/dL Normal [facility] Comment on above: Order Comment: Speci men Type: BLOOD SPECIMEN [facility] Address: [address] [place] [address] Result Comment: eAG: (Estimated average glucose) is a calculated value from HgbA1c and is underwriting account representative of the average blood glucose level in the last 2-3 month period. Performed By: #### 2 4321-2, 66817-5, 2777-1 #### [facility] CLIA [id number] [address] [place] [address] [place] HbA1c (Bld) [Mass fraction] 5.5 % Normal 4.3-5.6 [facility] Comment on above: Order Comment: Odette yoel Type: BLOOD SPECIMEN Ordering Facility: [facility] Address: [address] [place] [address] Result Comment: G[place] ican Diabetes Association guidelines indicate that patients with HgbA1c in the range 5.7-6.4% are at increased risk for development of diabetes, and intervention by lifestyle modification may be beneficial. HgbA1c greater or equal to 6.5% is considered diagnostic of diabetes. Performed By: #### 2 4321-2, 43478-8, 2777-1 #### [facility] CLIA [id number] [address] [place] LUPUS PANELon 06-08-2023 aPTT Coag (Bld) [Time] 31.6 s Normal 24.0-35.1 [facility] Comment on above: Order Comment: Odette yoel Type: BLOOD SPECIMENOrdering Facility: [facility] Address: [address] [place] [address] Performed By: #### L UPPL ####[facility] LABCLIA [id number] [place] [address] [place] aPTT W excess hexagonal phase phospholipid Coag (PPP) [Time] 40.3 seconds Normal 34.0-51.8 [facility] Comment on above: Order Comment: Odette yoel Type: BLOOD SPECIMENOrdering Facility: [facility] Address: [address] [place] [address] Performed By: #### L UPPL ####[facility] LABCLIA [id number] [place] [address] [place] Delta dRVVT Coag (PPP) [Time diff] 1.3 delta seconds Normal <7.1 [facility] Comment on above: Order Comment: Odette yoel Type: BLOOD SPECIMENOrdering Facility: [facility] Address: [address] [place] [address] Performed By: #### L UPPL ####[facility] LABCLIA [id number] [place] [address] [place] dRVVT Coag (PPP) [Time] 31.6 s Low 32.0-45.7 A [facility] Comment on above: Order Comment: Speci men Type: BLOOD SPECIMENOrdering Facility: [facility] Address: [address] [place] [address] Performed By: #### L UPPL ####[facility] [id number] [place] [address] [place] dRVVT factor substitution immediately after 1:2 addition of normal plasma Coag (PPP) [Time] 33.9 seconds Normal 32.0-45.7 [facility] Comment on above: Order Comment: Speci men Type: BLOOD SPECIMENOrdering Facility: [facility] Address: [address] [place] [address] Performed By: #### L UPPL ####[facility] [id number] [place] [address] [place] dRVVT W excess hexagonal phase phospholipid actual/normal Coag (PPP) [Relative time] 39.0 seconds Normal 34.2-47.9 [facility] Comment on above: Order Comment: Speci men Type: BLOOD SPECIMENOrdering Facility: [facility] Address: [address] [place] [address] Performed By: #### L UPPL ####[facility] [id number] [place] [address] [place] dRVVT/dRVVT.excess phospholipid Coag (PPP) [Ratio] 0.95 Normal <1.32 [facility] Comment on above: Order Comment: Speci men Type: BLOOD SPECIMENOrdering Facility: [facility] Address: [address] [place] [address] Performed By: #### L UPPL ####[facility] [id number] [place] [address] [place] Lupus anticoagulant neutralization platelet Coag Ql (PPP) Negative Normal Negative [facility] Comment on above: Order Comment: Speci men Type: BLOOD SPECIMENOrdering Facility: [facility] Address: [address] [place] [address] Performed By: #### L UPPL ####[facility] LABCLIA [id number] [place] [address] [place] Thrombin time Coag (PPP) [Time] 17.6 seconds Normal <18.6 [facility] Comment on above: Order Comment: Speci men Type: BLOOD SPECIMENOrdering Facility: [facility] Address: [address] [place] [address] Performed By: #### L UPPL ####[facility] LABCLIA [id number] [place] [address] [place] Lipid 1996 panelon 3 Cholesterol [Mass/Vol] 184 mg/dL Normal <200 [facility] Comment on above: Order Comment: Speci men Type: BLOOD SPECIMEN Ordering [facility]: [facility] Address: [address] [place] [address] Result Comment: <200 mg/dL, Desirable 200-239 mg/dL, Borderline high >239 mg/dL, High Performed By: #### 2 4321-2, , 2776-07 #### [facility] CLIA [id number] [address] STATES OF [facility] Cholesterol in HDL [Mass/Vol] 51 mg/dL Normal >39 [facility] Comment on above: Order Comment: Speci men Type: BLOOD SPECIMEN Ordering [facility]: [facility] Address: [address] [place] [address] Result Comment: 40-5 9 mg/dL, Acceptable >59 mg/dL, High: Negative risk factor for coronary heart disease <40 mg/dL, Low: Positive risk factor for coronary heart disease Performed By: #### 2 4321-2, 13007-2, 277-1 #### [facility] CLIA [id number] [address] [place] [address] [place] Cholesterol in LDL [Mass/Vol] 110 mg/dL High <100 [facility] Comment on above: Order Comment: Speci men Type: BLOOD SPECIMEN Ordering Facility: [facility] Address: [address] [place] [address] Result Comment: <100 mg/dL, Optimal 100-129 mg/dL, Near optimal/above optimal 130-159 mg/dL, Borderline high 160-189 mg/dL, High >189 mg/dL, Very high Secondary prevention optimal LDL Cholesterol levels are recommended to be < 70 mg/dL Performed By: #### 2 4321-2, , 2776-07 #### [facility] CLIA [id number] [address] Cholesterol in LDL/Cholesterol in HDL [Mass ratio] 2.16 {ratio} Normal <2.54 [facility] Comment on above: Order Comment: Speci men Type: BLOOD SPECIMEN Ordering Facility: [facility] Address: [address] [place] [address] Result Comment: Refe orestesce: 1. National Cholesterol Education Program ATP III Guideline At-A-Glance Quick Desk Reference: National Heart, Lung, and Blood [place]. National Institutes of Health. 2001: NIH Publication No. 01-3305. 2. An International Atherosclerosis Society position paper: global recommendations for the management of dyslipidemia: executive summary, Atherosclerosis. 2014: 232(2):410-413. Performed By: #### 2 1-2, , 2776-07 #### [facility] CLIA [id number] [address] [place] Cholesterol in VLDL [Mass/Vol] 23 mg/dL Normal <30 [facility] Comment on above: Order Comment: Speci men Type: BLOOD SPECIMEN Ordering Facility: [facility] Address: [place] [address] Performed By: #### 2 4321-2, , 2776-07 #### [facility] CLIA [id number] [address] [place] Cholesterol non HDL [Mass/Vol] 133 mg/dL High <130 [facility] Comment on above: Order Comment: Speci men Type: BLOOD SPECIMEN Ordering Facility: [facility] Address: [address] [place] [address] Result Comment: <130 mg/dL, Optimal 130-159 mg/dL, Near optimal/above optimal 160-189 mg/dL, Borderline high 190-219 mg/dL, High >219 mg/dL, Very high Secondary prevention optimal non HDL Cholesterol levels are recommended to be <100 mg/dL Performed By: #### 2 4321-2, , 2776-07 #### [facility] CLIA [id number] [address] Cholesterol.total/Mara sterol in HDL [Mass ratio] 3.61 {ratio} Normal <5.10 [facility] Comment on above: Order Comment: Amandai men Type: BLOOD SPECIMEN Ordering Facility: [facility] Address: [address] [place] [address] Performed By: #### 2 4321-2, , 2776-07 #### [facility] CLIA [id number] [address] FASTING TIME 24 hrs Normal [facility] Comment on above: Order Comment: Amandai men Type: BLOOD SPECIMEN Ordering Facility: [facility] Address: [address] [place] [address] Performed By: #### 2 4321-2, , 2776-07 #### [facility] CLIA [id number] [address] Triglyceride [Mass/Vol] 114 mg/dL Normal <150 A [facility] Comment on above: Order Comment: Speci men Type: BLOOD SPECIMEN Ordering Facility: [facility] Address: [address] [place] [address] Result Comment: <150 mg/dL, Normal 150-199 mg/dL, Borderline high 200-499 mg/dL, High >499 mg/dL, Very high Performed By: #### 2 4321-2, , 2776-07 #### [facility] CLIA [id number] [address] [place] Magnesium SerPl-mCncon 06-08 Magnesium [Mass/Vol] 2.2 mg/dL Normal 1.7-2.3 [facility] Comment on above: Order Comment: Odette diallo Type: BLOOD SPECIMEN Ordering Facility: [facility] Address: [address] [place] [address] Performed By: #### 1 9123-9, 83696-4, 2777-1 #### [facility] CLIA [id number] [address] [place] PT panel Coag (PPP)on 2022 INR Coag (PPP) [Relative time] 1.1 {INR} Normal 0.9-1.3 [facility] Comment on above: Order Comment: Odette diallo Type: BLOOD SPECIMEN Ordering Facility: [facility] Address: [address] [place] [address] Result Comment: Carolyne min K Antagonist (VKA) Therapeutic Range: INR 2 to 3 (Target INR of 2.5) Note: For patients treated with VKA drugs, such as warfarin, the [place] [employer] 2012 Guideline recommends a therapeutic INR range of 2 to 3 (target INR of 2.5). This recommendation includes high-risk patients with antiphospholipid syndrome with previous arterial or venous thromboembolism, current-generation mechanical or bioprosthetic aortic heart valve replacement. Note: Patients with mechanical aortic valve replacement and additional risk factors for thromboembolic events (atrial fibrillation, previous thromboembolism, LV dysfunction, hypercoagulable conditions) or an older generation mechanical AVR (i.e., ball in-Cage) or any mechanical MVR should have a INR therapeutic range of 2.5 to 3.5 (target INR of 3). Tello GH, et al. Chest 2012, 141:7S-47S Toribio RA, et al. JACC 2017, 70: 252-289 Performed By: #### 3 4528-0, 56547-9 #### [facility] CLIA [id number] [address] [facility] [place] [address] [place] PT Coag (PPP) [Time] 11.4 s Normal 9.7-13.0 [facility] Comment on above: Order Comment: Speci men Type: BLOOD SPECIMEN Ordering Facility: [facility] Address: [address] [place] [address] Performed By: #### 3 4528-0, 86401-3 #### [facility] CLIA [id number] [address] [place] [address] [place] Phosphate SerPl-mCncon 06-08 Phosphate [Mass/Vol] 2.7 mg/dL Normal 2.7-4.8 [facility] Comment on above: Order Comment: Speci men Type: BLOOD SPECIMENOrdering Facility: [facility] Address: [address] [place] [address] Performed By: #### 1 9123-9, 86611-9, 2777-1 ####[facility] [id number] [place] [address] [place] STAPH AUREUS PCRon 3 S. aureus and MRSA panel PRITESH+probe (Nose) Normal Negative [facility] Comment on above: Order Comment: Speci men Type: BLOOD SPECIMEN Ordering Facility: [facility] Address: [address] [place] [address] Result Comment: Nega tive for Staphylococcus aureus by PCR. Negative for MRSA by PCR Performed By: #### 2 4321-2, 31835-2, 2777-1 #### [facility] CLIA [id number] 1 [place] [address] [place] aPTT PPPon 06-08-2023 aPTT Coag (PPP) [Time] 26.3 s Normal 23.0-32.4 [facility] Comment on above: Order Comment: Speci men Type: BLOOD SPECIMEN Ordering Facility: [facility] Address: [address] [place] [address] Result Comment: Froz en Plasma Aliquot Performed By: #### 3 4528-0, 72736-5 #### [facility] CLIA [id number] [address] [place] [address] [place] Absolute lymphocyte countOrd ered By: Russ Mccann on 06-07-2023 Lymphocytes Auto (Unsp spec) [#/Vol] 1.34 10*3/uL 0.83-4.51 [facility] Basophil percentageOrdered B y: Russ Mccann on 06-07-2023 Basophils/100 WBC (Bld) 0.2 % 0-1 [facility] Bilirubin [Mass/Vol] 0.40 mg/dL 0.20-1.00 [facility] Comment on above: For patients on eltr ombopag therapy, use of Dimension Marlin TBIL is not recommended. Chloride [Moles/Vol] 108 mmol/L 98-107 [facility] Cholesterol [Mass/Vol] 192 mg/dL <200 [facility] Comment on above: <200 mg/dL Desirable 200-240 mg/dL Borderline >240 mg/dL High Risk Eosinophils/100 WBC (Bld) 0.0 % 0-5 [facility] Glucose [Mass/Vol] 105 mg/dL 74-106 [facility] Comment on above: Fasting Glucose resu lt from 100 to 125 mg/dL suggests IMPAIRED HOMEOSTASIS per A.D.A. criteria. Neutrophils (Bld) [#/Vol] 7.3 10*3/uL 2.0-7.7 [facility] Neutrophils/100 WBC (Bld) 79.3 % 47-70 [facility] Potassium [Moles/Vol] 3.9 mmol/L 3.5-5.1 [facility] Protein [Mass/Vol] 6.5 g/dL 6.4-8.2 [facility] Sodium [Moles/Vol] 139 mmol/L 136-145 [facility] Triglyceride [Mass/Vol] 57 mg/dL <199 [facility] Comment on above: The drugs N-Acetylcy steine and Metamizole may falsely depress this assay.Serum Triglycerides Reference Interval Normal <150 mg/dL Borderline high 150 - 199 mg/dL High 200 - 499 mg/dL Very High > or = 500 mg/dL WBC (Bld) [#/Vol] 9.2 10*3/uL 4.4-11.0 [facility] Blood erythrocytes count (nu mber/volume)Ordered By: Russ Mccann on 06-07-2023 RBC (Bld) [#/Vol] 4.05 10*6/uL 4.2-5.4 [facility] Blood hemoglobin measurement (mass/volume)Ordered By: Russ Mccann on 06-07-2023 Hemoglobin (Bld) [Mass/Vol] 12.2 g/dL 12.0-15.0 [facility] Blood lymphocytes/100 leukoc ytesOrdered By: Russ Mccann on 06-07-2023 Lymphocytes/100 WBC (Bld) 14.6 % 19-41 [facility] Blood monocytes/100 leukocyt esOrdered By: Russ Mccann on 06-07-2023 Monocytes/100 WBC (Bld) 5.7 % 0-10 [facility] Blood platelet mean volumeOr dered By: Russ Mccann on 06-07-2023 Platelet mean volume (Bld) [Entitic vol] 10.5 fL 6.2-12.0 [facility] Brain without Contraston Brain without Contrast Normal [facility] CBC W/Diff, Automatedon 05-28 Absolute Lymph 1.34 X10 3/uL Normal 0.83-4.51 [facility] Comment on above: Performed By: #### L 501.9520, L500.4050, L100.0100 ####[facility] [address] [place], [address] Absolute Neut 7.3 X10 3/uL Normal 2.0-7.7 [facility] Comment on above: Performed By: #### L 501.9520, L500.4050, L100.0100 ####[facility] [address] [place], [address] Basophils/100 WBC (Bld) 0.2 % Normal 0-1 [facility] Comment on above: Performed By: #### L 501.9520, L500.4050, L100.0100 ####[facility] [address] [place], [address] Eosinophils/100 WBC (Bld) 0.0 % Normal 0-5 [facility] Comment on above: Performed By: #### L 501.9520, L500.4050, L100.0100 ####[facility] [address] [place], [address] Erythrocyte distribution width (RBC) [Ratio] 12.9 % Normal 11.6-14.6 [facility] Comment on above: Performed By: #### L 501.9520, L500.4050, L100.0100 ####[facility] [address] [place], [address] Hematocrit (Bld) [Volume fraction] 38.8 % Normal 37-47 [facility] Comment on above: Performed By: #### L 501.9520, L500.4050, L100.0100 ####[facility] [address] [place], [address] Hemoglobin (Bld) [Mass/Vol] 12.2 g/dL Normal 12.0-15.0 [facility] Comment on above: Performed By: #### L 501.9520, L500.4050, L100.0100 ####[facility] [address] [place], [address] IG% 0.200 Normal 0.0-0.9 [facility] Comment on above: Result Comment: IG% - Immature Granulocytes (promyelocytes, myelocytes andmetamyelocytes) > 1% indicates that a LEFT SHIFT is Present. Performed By: #### L 501.9520, L500.4050, L100.0100 ####[facility] [address] [place], [address] Lymphocytes/100 WBC (Bld) 14.6 % Low 19-41 [facility] Comment on above: Performed By: #### L 501.9520, L500.4050, L100.0100 ####[facility] [address] [place], [address] MCH (RBC) [Entitic mass] 30.1 pg Normal 27.0-32.0 [facility] Comment on above: Performed By: #### L 501.9520, L500.4050, L100.0100 ####[facility] [address] [place], [address] MCHC (RBC) [Mass/Vol] 31.4 g/dL Low 32-36 [facility] Comment on above: Performed By: #### L 501.9520, L500.4050, L100.0100 ####[facility] [address] [place], [address] MCV (RBC) [Entitic vol] 95.8 fL Normal 81-99 [facility] Comment on above: Performed By: #### L 501.9520, L500.4050, L100.0100 ####[facility] [address] [place], [address] Monocytes/100 WBC (Bld) 5.7 % Normal 0-10 [facility] Comment on above: Performed By: #### L 501.9520, L500.4050, L100.0100 ####[facility] [address] [place], [address] Neutrophils/100 WBC (Bld) 79.3 % High 47-70 [facility] Comment on above: Performed By: #### L 501.9520, L500.4050, L100.0100 ####[facility] [address] [place], [address] Nucleated RBC (Bld) [#/Vol] 0 10*3/uL Normal 0-5 [facility] Comment on above: Performed By: #### L 501.9520, L500.4050, L100.0100 ####[facility] [address] [place], [address] Platelet mean volume (Bld) [Entitic vol] 10.5 fL Normal 6.2-12.0 [facility] Comment on above: Performed By: #### L 501.9520, L500.4050, L100.0100 ####[facility] [address] [place], [address] Platelets (Bld) [#/Vol] 237 10*3/uL Normal 150-450 [facility] Comment on above: Performed By: #### L 501.9520, L500.4050, L100.0100 ####[facility] [address] [place], [address] RBC (Bld) [#/Vol] 4.05 10*6/uL Low 4.2-5.4 [facility] Comment on above: Performed By: #### L 501.9520, L500.4050, L100.0100 ####[facility] [address] [place], [address] RDW SD 46.2 fl High 35.1-43.9 [facility] Comment on above: Performed By: #### L 501.9520, L500.4050, L100.0100 ####[facility] [address] [place], [address] WBC (Bld) [#/Vol] 9.2 10*3/uL Normal 4.4-11.0 [facility] Comment on above: Performed By: #### L 501.9520, L500.4050, L100.0100 ####[facility] [address] [place], [address] CTA Head AND Neck W/ Contras ton 06-07-2023 CTA Head AND Neck W/ Contrast Normal [facility] Comprehensive Metabolic Prof ilon 06-07-2023 Albumin [Mass/Vol] 3.1 g/dL Low 3.2-5.0 [facility] Comment on above: Performed By: #### L 501.9520, L500.4050, L100.0100 ####[facility] [address] [place], [address] Albumin/Globulin [Mass ratio] 0.9 {ratio} Normal 0.9-2.4 [facility] Comment on above: Performed By: #### L 501.9520, L500.4050, L100.0100 ####[facility] [address] [place], [address] ALK P 79 U/L Normal 45-117 [facility] Comment on above: Performed By: #### L 501.9520, L500.4050, L100.0100 ####[facility] [address] [place], [address] ALT [Catalytic activity/Vol] 13 U/L Normal 13-56 [facility] Comment on above: Performed By: #### L 501.9520, L500.4050, L100.0100 ####[facility] [address] [place], [address] AST [Catalytic activity/Vol] 14 U/L Low 15-37 [facility] Comment on above: Performed By: #### L 501.9520, L500.4050, L100.0100 ####[facility] [address] [place], [address] Bilirubin [Mass/Vol] 0.40 mg/dL Normal 0.20-1.00 [facility] Comment on above: Result Comment: For patients on eltrombopag therapy, use of Dimension Marlin TBIL is not recommended. Performed By: #### L 501.9520, L500.4050, L100.0100 ####[facility] [address] [place], [address] BUN/CRE 20.8 RATIO High 10-20 [facility] Comment on above: Performed By: #### L 501.9520, L500.4050, L100.0100 ####[facility] [address] [place], [address] CA,Total 8.1 mg/dL Low 8.5-10.1 [facility] Comment on above: Performed By: #### L 501.9520, L500.4050, L100.0100 ####[facility] [address] [place], [address] Chloride [Moles/Vol] 108 mmol/L High 98-107 [facility] Comment on above: Performed By: #### L 501.9520, L500.4050, L100.0100 ####[facility] [address] [place], [address] CO2 [Moles/Vol] 26.0 mmol/L Normal 21.0-32.0 [facility] Comment on above: Performed By: #### L 501.9520, L500.4050, L100.0100 ####[facility] [address] [place], [address] Creatinine [Mass/Vol] 0.92 mg/dL Normal 0.55-1.02 [facility] Comment on above: Result Comment: The validity of the calculated GFR GFRAA in patients over70 years has not been determined. Clinical correlation isessential. Performed By: #### L 501.9520, L500.4050, L100.0100 ####[facility] [address] [place], [address] ECRCL 34.35 ml/min Normal [facility] Comment on above: Performed By: #### L 501.9520, L500.4050, L100.0100 ####[facility] [address] [place], [address] EST GFR - AA 75 mL/min Normal >60 [facility] Comment on above: Result Comment: Afri can [place] GFR Calc Performed By: #### L 501.9520, L500.4050, L100.0100 ####[facility] [address] [place], [address] GAP 5 Normal 5-15 [facility] Comment on above: Performed By: #### L 501.9520, L500.4050, L100.0100 ####[facility] [address] [place], [address] GFR/1.73 sq M.predicted among non-blacks MDRD (S/P/Bld) [Vol rate/Area] 62 mL/min/{1.73_m2} Normal >60 [facility] Comment on above: Result Comment: Non- GFR Calc Performed By: #### L 501.9520, L500.4050, L100.0100 ####[facility] [address] [place], [address] Globulin (S) [Mass/Vol] 3.4 g/dL Normal 2.2-4.2 [facility] Comment on above: Performed By: #### L 501.9520, L500.4050, L100.0100 ####[facility] [address] [place], [address] Glucose [Mass/Vol] 105 mg/dL Normal 74-106 [facility] Comment on above: Result Comment: Fast ing Glucose result from 100 to 125 mg/dLsuggests IMPAIRED HOMEOSTASIS per A.D.A. criteria. Performed By: #### L 501.9520, L500.4050, L100.0100 ####[facility] [address] [place], [address] Potassium [Moles/Vol] 3.9 mmol/L Normal 3.5-5.1 [facility] Comment on above: Performed By: #### L 501.9520, L500.4050, L100.0100 ####[facility] [address] [place], [address] Sodium [Moles/Vol] 139 mmol/L Normal 136-145 [facility] Comment on above: Performed By: #### L 501.9520, L500.4050, L100.0100 ####[facility] [address] [place], [address] T PROT 6.5 g/dL Normal 6.4-8.2 [facility] Comment on above: Performed By: #### L 501.9520, L500.4050, L100.0100 ####[facility] [address] [place], [address] Urea nitrogen [Mass/Vol] 19 mg/dL High 7-18 [facility] Comment on above: Performed By: #### L 501.9520, L500.4050, L100.0100 ####[facility] [address] [place], [address] Determination of erythrocyte mean corpuscular volume (MCV)Ordered By: Russ Mccann on 06-07-2023 MCV (RBC) [Entitic vol] 95.8 fL 81-99 [facility] Echo Completeon 06-07-2023 Echo Complete Normal [facility] Hematocrit Auto (Bld) [Volum e fraction]Ordered By: Russ Mccann on 06-07-2023 Hematocrit (Bld) [Volume fraction] 38.8 % 37-47 [facility] - Chemistry and C hemistry - challengeOrdered By: Russ Mccann on 06-07-2023 ALP [Catalytic activity/Vol] 79 U/L 45-117 [facility] ALT [Catalytic activity/Vol] 13 U/L 13-56 [facility] CO2 [Moles/Vol] 26.0 mmol/L 21.0-32.0 [facility] Globulin (S) [Mass/Vol] 3.4 g/dL 2.2-4.2 [facility] Urea nitrogen/Creatinine [Mass ratio] 20.8 mg/mg 10-20 [facility] - Hematology and Cell countsOrdered By: Russ Mccann on 06-07-2023 Erythrocyte distribution width (RBC) [Entitic vol] 46.2 fL 35.1-43.9 [facility] Erythrocyte distribution width (RBC) [Ratio] 12.9 % 11.6-14.6 [facility] Immature granulocytes/100 WBC (Bld) 0.200 % 0.0-0.9 [facility] Comment on above: IG% - Immature Granu locytes (promyelocytes, myelocytes and metamyelocytes) > 1% indicates that a LEFT SHIFT is Present. MCH (RBC) [Entitic mass] 30.1 pg 27.0-32.0 [facility] Nucleated RBC/100 WBC (Bld) [Ratio] 0 % 0-5 [facility] Lipid Profileon 06-07-2023 Cholesterol [Mass/Vol] 192 mg/dL Normal 200 [facility] Comment on above: Result Comment: <200 mg/dL Desirable 200-240 mg/dL Borderline >240 mg/dL High Risk Performed By: #### L 500.4100 ####[facility] [address] [facility] [address] Cholesterol in HDL [Mass/Vol] 59 mg/dL Normal [facility] Comment on above: Result Comment: The drugs N-Acetylcysteine and Metamizole may falselydepress this assay. Reference Range HDL <40 mg/dL Low HDL Cholesterol HDL >or= 60 mg/dL High HDL Cholesterol Performed By: #### L 500.4100 ####[facility] [address] [place], [address] Cholesterol in LDL [Mass/Vol] 122 mg/dL Normal 0-130 [facility] Comment on above: Performed By: #### L 500.4100 ####[facility] [address] [place], [address] Cholesterol in VLDL [Mass/Vol] 11 mg/dL Normal 5-40 [facility] Comment on above: Performed By: #### L 500.4100 ####[facility] [address] [place], [address] Triglyceride [Mass/Vol] 57 mg/dL Normal [facility] Comment on above: Result Comment: The drugs N-Acetylcysteine and Metamizole may falselydepress this assay.Serum Triglycerides Reference Interval Normal <150 mg/dL Borderline high 150 - 199 mg/dL High 200 - 499 mg/dL Very High > or = 500 mg/dL Performed By: #### L 500.4100 ####[facility] [address] [place], [address] MCHC Auto (RBC) [Mass/Vol]Or dered By: Russ Mccann on 06-07-2023 MCHC (RBC) [Mass/Vol] 31.4 g/dL 32-36 [facility] No Panel InformationOrdered By: Russ Mccann on 06-07-2023 Estimated Creatinine Clearance Calc 34.35 ml/min [facility] Estimated GFR (MDRD) Amer 75 mL/min >60 [facility] Comment on above: GFR Calc Estimated GFR (MDRD) Non-Af Amer 62 mL/min >60 [facility] Comment on above: Non- GFR Calc Thyroid Stimulating Hormone (TSH) 1.15 uIU/mL 0.358-3.74 [facility] Platelets bldOrdered By: Harman Mccann on 06-07-2023 Platelets (Bld) [#/Vol] 237 10*3/uL 150-450 [facility] Serum or plasma albumin eder urement (mass/volume)Ordered By: Russ Mccann on 06-07-2023 Albumin [Mass/Vol] 3.1 g/dL 3.2-5.0 [facility] Serum or plasma albumin/glob ulin mass ratioOrdered By: Russ Mccann on 06-07-2023 Albumin/Globulin [Mass ratio] 0.9 {ratio} 0.9-2.4 [facility] Serum or plasma calcium eder urement (mass/volume)Ordered By: Russ Mccann on 06-07-2023 Calcium [Mass/Vol] 8.1 mg/dL 8.5-10.1 [facility] Serum or plasma cholesterol in HDL measurement (mass/volume)Ordered By: Russ Mccann on 06-07-2023 Cholesterol in HDL [Mass/Vol] 59 mg/dL >40 [facility] Comment on above: The drugs N-Acetylcy steine and Metamizole may falsely depress this assay. Reference Range HDL <40 mg/dL Low HDL Cholesterol HDL >or= 60 mg/dL High HDL Cholesterol Serum or plasma cholesterol in VLDL measurement (mass/volume)Ordered By: Russ Mccann on 06-07-2023 Cholesterol in VLDL [Mass/Vol] 11 mg/dL 5-40 [facility] Serum or plasma creatinine m easurement (mass/volume)Ordered By: Russ Mccann on 06-07-2023 Creatinine [Mass/Vol] 0.92 mg/dL 0.55-1.02 [facility] Comment on above: The validity of the calculated GFR & GFRAA in patients over 70 years has not been determined. Clinical correlation is essential. Serum or plasma low density lipoprotein (LDL) cholesterol measurement (mass/volume)Ordered By: Russ Mccann on 06-07-2023 Cholesterol in LDL [Mass/Vol] 122 mg/dL 0-130 [facility] Serum or plasma urea nitroge n measurement (mass/volume)Ordered By: Russ Mccann on 06-07-2023 Urea nitrogen [Mass/Vol] 19 mg/dL 7-18 [facility] Thin prep Papanicolaou smear with manual screeningOrdered By: Russ Mccann on 06-07-2023 Thin prep Papanicolaou smear with manual screening 14 U/L 15-37 [facility] Thin prep Papanicolaou smear with manual screening 5 5-15 [facility] Thyroid Stim Hormone (TSH)on 06-07-2023 TSH 1.15 uIU/mL Normal 0.358-3.74 [facility] Comment on above: Performed By: #### L 501.9561, L500.4050, L100.0100 ####[facility] [address] [place], [address] Absolute lymphocyte countOrd ered By: ED PROVIDER on 06-06-2023 Lymphocytes Auto (Unsp spec) [#/Vol] 1.18 10*3/uL 0.83-4.51 [facility] Basophil percentageOrdered B y: Mitul Owen on 06-06-2023 Basophil percentage 0-5 SEEN /hpf 0-5 [facility] Bilirubin [Mass/Vol] 0.40 mg/dL 0.20-1.00 [facility] Comment on above: For patients on eltr ombopag therapy, use of Dimension Marlin TBIL is not recommended. Chloride [Moles/Vol] 105 mmol/L 98-107 [facility] Glucose [Mass/Vol] 146 mg/dL 74-106 [facility] Comment on above: Fasting Glucose resu lt greater than or equal to 126 mg/dL suggests DIABETES MELLITUS per A.D.A. criteria. Potassium [Moles/Vol] 4.0 mmol/L 3.5-5.1 [facility] Protein [Mass/Vol] 7.5 g/dL 6.4-8.2 [facility] Sodium [Moles/Vol] 138 mmol/L 136-145 [facility] Basophil percentageOrdered B y: ED PROVIDER on 06-06-2023 Basophils/100 WBC (Bld) 0.5 % 0-1 [facility] Eosinophils/100 WBC (Bld) 0.1 % 0-5 [facility] Neutrophils (Bld) [#/Vol] 11.8 10*3/uL 2.0-7.7 [facility] Neutrophils/100 WBC (Bld) 88.1 % 47-70 [facility] WBC (Bld) [#/Vol] 13.3 10*3/uL 4.4-11.0 [facility] Bilirubin Test strip Ql (U)O rdered By: Mitul Owen on 06-06-2023 Bilirubin Ql (U) Negative Negative [facility] Blood erythrocytes count (nu mber/volume)Ordered By: ED PROVIDER on 06-06-2023 RBC (Bld) [#/Vol] 4.27 10*6/uL 4.2-5.4 [facility] Blood hemoglobin measurement (mass/volume)Ordered By: ED PROVIDER on 06-06-2023 Hemoglobin (Bld) [Mass/Vol] 12.9 g/dL 12.0-15.0 [facility] Blood lymphocytes/100 leukoc ytesOrdered By: ED PROVIDER on 06-06-2023 Lymphocytes/100 WBC (Bld) 8.9 % 19-41 [facility] Blood monocytes/100 leukocyt esOrdered By: ED PROVIDER on 06-06-2023 Monocytes/100 WBC (Bld) 2.0 % 0-10 [facility] Blood platelet mean volumeOr dered By: ED PROVIDER on 06-06-2023 Platelet mean volume (Bld) [Entitic vol] 10.2 fL 6.2-12.0 [facility] Brain/Head without Contrasto n 06-06-2023 Brain/Head without Contrast Normal [facility] CBC W/Diff, Automatedon 05-28 0-2022 Absolute Lymph 1.18 X10 3/uL Normal 0.83-4.51 [facility] Comment on above: Performed By: #### L 100.0100, L500.4050 ####[facility] [address] [place], [address] Absolute Neut 11.8 X10 3/uL High 2.0-7.7 [facility] Comment on above: Performed By: #### L 100.0100, L500.4050 ####[facility] [address] [place], [place], [address] Basophils/100 WBC (Bld) 0.5 % Normal 0-1 [facility] Comment on above: Performed By: #### L 100.0100, L500.4050 ####[facility] [address] [place], [address] Eosinophils/100 WBC (Bld) 0.1 % Normal 0-5 [facility] Comment on above: Performed By: #### L 100.0100, L500.4050 ####[facility] [address] [place], [address] Erythrocyte distribution width (RBC) [Ratio] 12.9 % Normal 11.6-14.6 [facility] Comment on above: Performed By: #### L 100.0100, L500.4050 ####[facility] [address] [place], [address] Hematocrit (Bld) [Volume fraction] 40.6 % Normal 37-47 [facility] Comment on above: Performed By: #### L 100.0100, L500.4050 ####[facility] [address] [place], [address] Hemoglobin (Bld) [Mass/Vol] 12.9 g/dL Normal 12.0-15.0 [facility] Comment on above: Performed By: #### L 100.0100, L500.4050 ####[facility] [address] [place], [address] IG% 0.400 Normal 0.0-0.9 [facility] Comment on above: Result Comment: IG% - Immature Granulocytes (promyelocytes, myelocytes andmetamyelocytes) > 1% indicates that a LEFT SHIFT is Present. Performed By: #### L 100.0100, L500.4050 ####[facility] [address] [place], [address] Lymphocytes/100 WBC (Bld) 8.9 % Low 19-41 [facility] Comment on above: Performed By: #### L 100.0100, L500.4050 ####[facility] [address] [place], [address] MCH (RBC) [Entitic mass] 30.2 pg Normal 27.0-32.0 [facility] Comment on above: Performed By: #### L 100.0100, L500.4050 ####[facility] [address] [place], [address] MCHC (RBC) [Mass/Vol] 31.8 g/dL Low 32-36 [facility] Comment on above: Performed By: #### L 100.0100, L500.4050 ####[facility] [address] [place], [address] MCV (RBC) [Entitic vol] 95.1 fL Normal 81-99 [facility] Comment on above: Performed By: #### L 100.0100, L500.4050 ####[facility] [address] [place], [address] Monocytes/100 WBC (Bld) 2.0 % Normal 0-10 [facility] Comment on above: Performed By: #### L 100.0100, L500.4050 ####[facility] [address] [place], [address] Neutrophils/100 WBC (Bld) 88.1 % High 47-70 [facility] Comment on above: Performed By: #### L 100.0100, L500.4050 ####[facility] [address] [place], [address] Nucleated RBC (Bld) [#/Vol] 0 10*3/uL Normal 0-5 [facility] Comment on above: Performed By: #### L 100.0100, L500.4050 ####[facility] [address] [place], [address] Platelet mean volume (Bld) [Entitic vol] 10.2 fL Normal 6.2-12.0 [facility] Comment on above: Performed By: #### L 100.0100, L500.4050 ####[facility] [address] [place], [address] Platelets (Bld) [#/Vol] 254 10*3/uL Normal 150-450 [facility] Comment on above: Performed By: #### L 100.0100, L500.4050 ####[facility] [address] [place], [address] RBC (Bld) [#/Vol] 4.27 10*6/uL Normal 4.2-5.4 [facility] Comment on above: Performed By: #### L 100.0100, L500.4050 ####[facility] [address] [place], [address] RDW SD 44.9 fl High 35.1-43.9 [facility] Comment on above: Performed By: #### L 100.0100, L500.4050 ####[facility] [address] [place], [address] WBC (Bld) [#/Vol] 13.3 10*3/uL High 4.4-11.0 [facility] Comment on above: Performed By: #### L 100.0100, L500.4050 ####[facility] [address] [place], [address] Comprehensive Metabolic Prof ilon 06-06-2023 Albumin [Mass/Vol] 3.9 g/dL Normal 3.2-5.0 [facility] Comment on above: Performed By: #### L 100.0100, L500.4050 ####[facility] [address] [place], [address] Albumin/Globulin [Mass ratio] 1.1 {ratio} Normal 0.9-2.4 [facility] Comment on above: Performed By: #### L 100.0100, L500.4050 ####[facility] [address] [place], [address] ALK P 90 U/L Normal 45-117 [facility] Comment on above: Performed By: #### L 100.0100, L500.4050 ####[facility] [address] [place], [address] ALT [Catalytic activity/Vol] 15 U/L Normal 13-56 [facility] Comment on above: Performed By: #### L 100.0100, L500.4050 ####[facility] [address] [place], [address] AST [Catalytic activity/Vol] 16 U/L Normal 15-37 [facility] Comment on above: Performed By: #### L 100.0100, L500.4050 ####[facility] [address] [place], [address] Bilirubin [Mass/Vol] 0.40 mg/dL Normal 0.20-1.00 [facility] Comment on above: Result Comment: For patients on eltrombopag therapy, use of Dimension Marlin TBIL is not recommended. Performed By: #### L 100.0100, L500.4050 ####[facility] [address] [place], [address] BUN/CRE 21.4 RATIO High 10-20 [facility] Comment on above: Performed By: #### L 100.0100, L500.4050 ####[facility] [address] [place], [address] CA,Total 9.1 mg/dL Normal 8.5-10.1 [facility] Comment on above: Performed By: #### L 100.0100, L500.4050 ####[facility] [address] [place], [address] Chloride [Moles/Vol] 105 mmol/L Normal 98-107 [facility] Comment on above: Performed By: #### L 100.0100, L500.4050 ####[facility] [address] [place], [address] CO2 [Moles/Vol] 27.0 mmol/L Normal 21.0-32.0 [facility] Comment on above: Performed By: #### L 100.0100, L500.4050 ####[facility] [address] [place], [address] Creatinine [Mass/Vol] 1.03 mg/dL High 0.55-1.02 [facility] Comment on above: Result Comment: The validity of the calculated GFR GFRAA in patients over70 years has not been determined. Clinical correlation isessential. Performed By: #### L 100.0100, L500.4050 ####[facility] [address] [place], [address] EST GFR - AA 66 mL/min Normal >60 [facility] Comment on above: Result Comment: Afri can [place] GFR Calc Performed By: #### L 100.0100, L500.4050 ####[facility] [address] [place], [address] GAP 6 Normal 5-15 [facility] Comment on above: Performed By: #### L 100.0100, L500.4050 ####[facility] [address] [place], [address] GFR/1.73 sq M.predicted among non-blacks MDRD (S/P/Bld) [Vol rate/Area] 54 mL/min/{1.73_m2} Low >60 [facility] Comment on above: Result Comment: Non- GFR Calc Performed By: #### L 100.0100, L500.4050 ####[facility] [address] [place], [address] Globulin (S) [Mass/Vol] 3.6 g/dL Normal 2.2-4.2 [facility] Comment on above: Performed By: #### L 100.0100, L500.4050 ####[facility] [address] [place], [address] Glucose [Mass/Vol] 146 mg/dL High 74-106 [facility] Comment on above: Result Comment: Fast ing Glucose result greater than or equal to 126 mg/dLsuggests DIABETES MELLITUS per A.D.A. criteria. Performed By: #### L 100.0100, L500.4050 ####[facility] [address] [place], [address] Potassium [Moles/Vol] 4.0 mmol/L Normal 3.5-5.1 [facility] Comment on above: Performed By: #### L 100.0100, L500.4050 ####[facility] [address] [place], [address] Sodium [Moles/Vol] 138 mmol/L Normal 136-145 [facility] Comment on above: Performed By: #### L 100.0100, L500.4050 ####[facility] [address] [place], [address] T PROT 7.5 g/dL Normal 6.4-8.2 [facility] Comment on above: Performed By: #### L 100.0100, L500.4050 ####[facility] [address] [place], [address] Urea nitrogen [Mass/Vol] 22 mg/dL High 7-18 [facility] Comment on above: Performed By: #### L 100.0100, L500.4050 ####[facility] [address] [place], [address] Determination of erythrocyte mean corpuscular volume (MCV)Ordered By: ED PROVIDER on 06-06-2023 MCV (RBC) [Entitic vol] 95.1 fL 81-99 [facility] Emergency Department Summary on 06-06-2023 Emergency Department Summary Normal [facility] H AND P Exam - Hospitaliston 06-06-2023 H&P Exam - Hospitalist Normal [facility] Hematocrit Auto (Bld) [Volum e fraction]Ordered By: ED PROVIDER on 06-06-2023 Hematocrit (Bld) [Volume fraction] 40.6 % 37-47 [facility] Ketones Test strip Ql (U)Ord ered By: Mitul Owen on 06-06-2023 Ketones Ql (U) 50 mg/dl Negative [facility] Laboratory - Chemistry and C hemistry - challengeOrdered By: Mitul Owen on 06-06-2023 ALP [Catalytic activity/Vol] 90 U/L 45-117 [facility] ALT [Catalytic activity/Vol] 15 U/L 13-56 [facility] CO2 [Moles/Vol] 27.0 mmol/L 21.0-32.0 [facility] Globulin (S) [Mass/Vol] 3.6 g/dL 2.2-4.2 [facility] Urea nitrogen/Creatinine [Mass ratio] 21.4 mg/mg 10-20 [facility] Laboratory - Hematology and Cell countsOrdered By: ED PROVIDER on 06-06-2023 Erythrocyte distribution width (RBC) [Entitic vol] 44.9 fL 35.1-43.9 [facility] Erythrocyte distribution width (RBC) [Ratio] 12.9 % 11.6-14.6 [facility] Immature granulocytes/100 WBC (Bld) 0.400 % 0.0-0.9 [facility] Comment on above: IG% - Immature Granu locytes (promyelocytes, myelocytes and metamyelocytes) > 1% indicates that a LEFT SHIFT is Present. MCH (RBC) [Entitic mass] 30.2 pg 27.0-32.0 [facility] Nucleated RBC/100 WBC (Bld) [Ratio] 0 % 0-5 [facility] MCHC Auto (RBC) [Mass/Vol]Or dered By: ED PROVIDER on 06-06-2023 MCHC (RBC) [Mass/Vol] 31.8 g/dL 32-36 [facility] Mucus LM Ql (Urine sed)Order ed By: Mitul Owen on 06-06-2023 Mucus Ql (Urine sed) 0 SEEN /hpf [facility] Nitrite Test strip Ql (U)Ord ered By: Mitul Owen on 06-06-2023 Nitrite Ql (U) Negative Negative [facility] No Panel InformationOrdered By: Mitul Owen on 06-06-2023 Estimated GFR (MDRD) Amer 66 mL/min >60 [facility] Comment on above: GFR Calc Estimated GFR (MDRD) Non-Af Amer 54 mL/min >60 [facility] Comment on above: Non- GFR Calc Platelets bldOrdered By: ED PROVIDER on 06-06-2023 Platelets (Bld) [#/Vol] 254 10*3/uL 150-450 [facility] Protein Test strip Ql (U)Ord ered By: Mitul Owen on 06-06-2023 Protein Ql (U) 15 mg/dl Negative [facility] Serum or plasma albumin eder urement (mass/volume)Ordered By: Mitul Owen on 06-06-2023 Albumin [Mass/Vol] 3.9 g/dL 3.2-5.0 [facility] Serum or plasma albumin/glob ulin mass ratioOrdered By: Mitul Owen on 06-06-2023 Albumin/Globulin [Mass ratio] 1.1 {ratio} 0.9-2.4 [facility] Serum or plasma calcium eder urement (mass/volume)Ordered By: Mitul Owen on 06-06-2023 Calcium [Mass/Vol] 9.1 mg/dL 8.5-10.1 [facility] Serum or plasma creatinine m easurement (mass/volume)Ordered By: Mitul Owen on 06-06-2023 Creatinine [Mass/Vol] 1.03 mg/dL 0.55-1.02 [facility] Comment on above: The validity of the calculated GFR & GFRAA in patients over 70 years has not been determined. Clinical correlation is essential. Serum or plasma urea nitroge n measurement (mass/volume)Ordered By: Mitul Owen on 06-06-2023 Urea nitrogen [Mass/Vol] 22 mg/dL 7-18 [facility] Squamous epithelial cells de tection in urine sediment by light microscopyOrdered By: Mitul Owen on 06-06-2023 Epithelial cells.squamous LM Ql (Urine sed) 0-5 SEEN /hpf 5-10 [facility] Thin prep Papanicolaou smear with manual screeningOrdered By: Mitul Owen on 06-06-2023 Thin prep Papanicolaou smear with manual screening 16 U/L 15-37 [facility] Thin prep Papanicolaou smear with manual screening 6 5-15 [facility] Urinalysis, Completeon 06-06 BACTERIA 1+ /hpf Normal None Seen [facility] Comment on above: Order Comment: CLEAN CATCH Performed By: #### L 400.0001 ####[facility] [address] [place], [address] EPI,SQUAMOUS 0-5 SEEN Normal 5-10 [facility] Comment on above: Order Comment: CLEAN CATCH Performed By: #### L 400.0001 ####[facility] [address] [place], [address] WBC 0-5 SEEN Normal 0-5 [facility] Comment on above: Order Comment: CLEAN CATCH Performed By: #### L 400.0001 ####[facility] [address] [place], [address] Mucus Ql (Urine sed) 0 SEEN Normal [facility] Comment on above: Order Comment: CLEAN CATCH Performed By: #### L 400.0001 ####[facility] [address] [place], [address] RBC 0 SEEN Normal 0-5 [facility] Comment on above: Order Comment: CLEAN CATCH Performed By: #### L 400.0001 ####[facility] [address] [place], [address] Urine blood detectionOrdered By: Mitul Owen on 06-06-2023 RBC Ql (U) Negative Negative [facility] RBC Ql (U) 0 SEEN /hpf 0-5 [facility] Urine clarityOrdered By: Dede Owen on 06-06-2023 Clarity (U) Sl. Cloudy Clear [facility] Urine color determinationOrd ered By: Mitul Owen on 06-06-2023 Color (U) Yellow Yellow [facility] Urine glucose detectionOrder ed By: Mitul Owen on 06-06-2023 Glucose Ql (U) Normal mg/dl Normal [facility] Urine leukocyte esterase det ection by dipstickOrdered By: Mitul Owen on 06-06-2023 Leukocyte esterase Test strip Ql (U) 25 /ul Negative [facility] Urine pHOrdered By: Mitul larry on 06-06-2023 pH (U) 7.0 [pH] 5.0 - 8.0 [facility] Urine sediment bacteria coun t by microscopy (number/high power field)Ordered By: Mitul Owen on 06-06-2023 Bacteria LM.HPF (Urine sed) [#/Area] 1 /[HPF] None Seen [facility] Urine specific gravity measu rementOrdered By: Mitul Owen on 06-06-2023 Specific gravity (U) [Rel density] 1.010 1.002-1.030 [facility] Urobilinogen Auto test strip Ql (U)Ordered By: Mitul Owen on 06-06-2023 Urobilinogen Ql (U) Normal mg/dl Normal [facility] LABORATORYOrdered By: Maryann Edward on 02-12-2022 ABO/Rh Interp Positive Invalid Interpretation Code AO BB SS Antibody Screen Gel Negative [facility]SC (02/12/22 6:28 AM) Invalid Interpretation Code AO BB SS LABORATORYOrdered By: Maryann Edward on 01-29-2022 ABO/Rh Interp Positive Invalid Interpretation Code AO BB SS Antibody Screen Gel Negative [facility] (01/29/22 11:01 AM) Invalid Interpretation Code AO BB SS LABORATORYOrdered By: Kendell Morris on 01-29-2022 Albumin BCP dye [Mass/Vol] 4.2 G/dL Invalid Interpretation Code 3.4 - 4.8 G/dL AO ADM SS Calcium [Mass/Vol] 9.0 mg/dL Invalid Interpretation Code 8.4 - 10.2 mg/dL AO ADM SS Chloride [Moles/Vol] 103 mmol/L Invalid Interpretation Code 98 - 107 mmol/L AO ADM SS CO2 [Moles/Vol] 30 mmol/L Invalid Interpretation Code 23 - 31 mmol/L AO ADM SS Creatinine [Mass/Vol] 1.07 mg/dL Invalid Interpretation Code 0.55 - 1.02 mg/dL AO ADM SS Electrolyte Balance 8.0 mEq/L Invalid Interpretation Code 4.0 - 15.0 mEq/L AO ADM SS Glucose [Mass/Vol] 87 mg/dL Invalid Interpretation Code 83 - 110 mg/dL AO ADM SS HbA1c (Bld) [Mass fraction] 5.8 % Invalid Interpretation Code 4.3 - 6.4 % AO ADM SS Potassium [Moles/Vol] 4.6 mmol/L Invalid Interpretation Code 3.5 - 5.1 mmol/L AO ADM SS Sodium [Moles/Vol] 141 mmol/L Invalid Interpretation Code 136 - 145 mmol/L AO ADM SS Urea nitrogen [Mass/Vol] 23 mg/dL Invalid Interpretation Code 7 - 18 mg/dL AO ADM SS Urea nitrogen/Creatinine [Mass ratio] 21 ratio Invalid Interpretation Code 7 - 27 ratio AO ADM SS LABORATORYOrdered By: Onel Carmen on 01-29-2022 Basophil, Absolute 0.1 103/mcL Invalid Interpretation Code 0.0 - 0.2 10^3/mcL AO Workflow SS Basophils/100 WBC (Bld) 0.7 % Invalid Interpretation Code 0.0 - 2.5 % AO Workflow SS Eosinophil, Absolute 0.2 103/mcL Invalid Interpretation Code 0.0 - 0.4 10^3/mcL AO Workflow SS Eosinophils/100 WBC (Bld) 2.1 % Invalid Interpretation Code 0.0 - 7.0 % AO Workflow SS Erythrocyte distribution width (RBC) [Ratio] 13.6 % Invalid Interpretation Code 11.5 - 14.5 % AO Workflow SS Hematocrit (Bld) [Volume fraction] 41.0 % Invalid Interpretation Code 37.0 - 47.0 % AO Workflow SS Hemoglobin (Bld) [Mass/Vol] 14.0 G/dL Invalid Interpretation Code 12.0 - 16.0 G/dL AO Workflow SS Lymphocyte, Absolute 2.4 103/mcL Invalid Interpretation Code 0.8 - 3.9 10^3/mcL AO Workflow SS Lymphocytes/100 WBC (Bld) 29.7 % Invalid Interpretation Code 10.0 - 50.0 % AO Workflow SS MCH (RBC) [Entitic mass] 30.8 pg Invalid Interpretation Code 27.0 - 31.2 pg AO Workflow SS MCHC 34.1 G/dL Invalid Interpretation Code 33.0 - 37.0 G/dL AO Workflow SS MCV (RBC) [Entitic vol] 90.5 fL Invalid Interpretation Code 80.0 - 94.0 fL AO Workflow SS Monocyte, Absolute 0.4 103/mcL Invalid Interpretation Code 0.2 - 1.0 10^3/mcL AO Workflow SS Monocytes/100 WBC (Bld) 5.5 % Invalid Interpretation Code 1.7 - 13.0 % AO Workflow SS Neutrophil, Absolute 5.1 103/mcL Invalid Interpretation Code 2.9 - 6.2 10^3/mcL AO Workflow SS Neutrophils/100 WBC (Bld) 62.0 % Invalid Interpretation Code 37.0 - 80.0 % AO Workflow SS Platelet mean volume (Bld) [Entitic vol] 8.6 fL Invalid Interpretation Code 7.4 - 10.4 fL AO Workflow SS Platelets (Bld) [#/Vol] 218 103/mcL Invalid Interpretation Code 130 - 400 10^3/mcL AO Workflow SS RBC (Bld) [#/Vol] 4.53 106/mcL Invalid Interpretation Code 4.20 - 5.40 10^6/mcL AO Workflow SS WBC 8.2 103/mcL Invalid Interpretation Code 4.6 - 10.8 10^3/mcL AO Workflow SS LABORATORYOrdered By: SYSTEM SYSTEM on 01-29-2022 GFR 59 ml/min/1.73sqm Invalid Interpretation Code AO Chemistry S GFR Non- 49 ml/min/1.73sqm Invalid Interpretation Code AO Chemistry S Monocyte distribution width Auto (Bld) [Entitic vol] Not Performed 1 *NA* (01/29/22 11:01 AM) Invalid Interpretation Code 0.00 - 20.00 AO [facility]emat[facility] S Comment on above: Result Comment: MDW testing performed only on adult ER patients between the ages of 18-89 years. Culture, urineon 12-31-2021 Bacteria identified Cx Nom (U) Escherichia coli [facility] Work Phone: Culture, urine Bacteria identified Cx Nom (U) Escherichia coli [facility] Work Phone: Vital Signs Date Time Vital Sign Value Performing Clinician Facility 12-01-2024 11:40-0400 Diastolic Blood Pressure Non-Invasive 72 mm[Hg] DR TESSA KENNY MD [facility] 12-01-2024 11:40-0400 Heart rate 77 /min DR TESSA KENNY MD [facility] 12-01-2024 11:40-0400 Respiratory rate 16 /min DR TESSA KENNY MD [facility] 12-01-2024 11:40-0400 Systolic Blood Pressure Non-Invasive 108 mm[Hg] DR TESSA KENNY MD [facility] 12-01-2024 11:25-0400 Diastolic Blood Pressure Non-Invasive 68 mm[Hg] DR TESSA KENNY MD [address] [place] [address] 12-01-2024 11:25-0400 Heart rate 70 /min DR TESSA KENNY MD [address] [place] [address] 12-01-2024 11:25-0400 Respiratory rate 16 /min DR TESSA KENNY MD [address] [place] [address] 12-01-2024 11:25-0400 Systolic Blood Pressure Non-Invasive 129 mm[Hg] DR TESSA KENNY MD [address] [place] [address] 12-01-2024 11:09-0400 Diastolic Blood Pressure Non-Invasive 82 mm[Hg] DR TESSA KENNY MD [address] [place] [address] 12-01-2024 11:09-0400 Heart rate 70 /min DR TESSA KENNY MD [address] [place] [address] 12-01-2024 11:09-0400 Respiratory rate 16 /min DR TESSA KENNY MD [address] [place] [address] 12-01-2024 11:09-0400 Systolic Blood Pressure Non-Invasive 133 mm[Hg] DR TESSA KENNY MD [address] [place] [address] 12-01-2024 08:19-0400 Body height 156.[address] TESSA KENNY MD [address] [place] [address] 12-01-2024 08:19-0400 Body temperature 97.52 [degF] DR TESSA KENNY MD [address] [place] [address] 12-01-2024 08:19-0400 Body weight 71.[address] TESSA KENNY MD [address] [place] [address] 07-08-2024 07:57-0500 Diastolic Blood Pressure Non-Invasive 91 mm[Hg] JAIRON RG MD [address] [place] [address] 07-08-2024 07:57-0500 Heart rate 80 /min JAIRON RG MD [address] [place] [address] 07-08-2024 07:57-0500 Respiratory rate 16 /min JAIRON RG MD [address] [place] [address] 07-08-2024 07:57-0500 Systolic Blood Pressure Non-Invasive 152 mm[Hg] JAIRON RG MD [address] [place] [address] 07-08-2024 05:50-0500 Body height 156.2 cm JAIRON RG MD [address] [place] [address] 07-08-2024 05:50-0500 Body temperature 97.7 [degF] JAIRON RG MD [address] [place] [address] 07-08-2024 05:50-0500 Body weight 67.4 kg JAIRON RG MD [address] [place] [address] 07-08-2024 05:50-0500 Diastolic Blood Pressure Non-Invasive 82 mm[Hg] JAIRON RG MD [address] [place] [address] 07-08-2024 05:50-0500 Heart rate 76 /min JAIRON RG MD [address] [place] [address] 07-08-2024 05:50-0500 Respiratory rate 16 /min JAIRON RG MD [address] [place] [address] 07-08-2024 05:50-0500 Systolic Blood Pressure Non-Invasive 153 mm[Hg] JAIRON RG MD [address] [place] [address] 09-06-2023 03:12-0500 Diastolic blood pressure 63 mm[Hg] Russ Delgado MD Work Phone: [facility] 09-06-2023 03:12-0500 Heart rate 88 /min Russ Delgado MD Work Phone: [facility] 09-06-2023 03:12-0500 Respiratory rate 14 /min Russ Delgado MD Work Phone: [facility] 09-06-2023 03:12-0500 SaO2% (BldA) [Mass fraction] 98 % Russ Delgado MD Work Phone: [facility] 09-06-2023 03:12-0500 Systolic blood pressure 112 mm[Hg] Russ Delgado MD Work Phone: [facility] 09-05-2023 23:30-0500 Body temperature 97.5 [degF] Russ Delgado MD Work Phone: [facility] 08-19-2023 13:28-0500 Body temperature 97.2 [degF] Dr. Mitul Rutherford Work Phone: [facility] 08-19-2023 13:28-0500 Diastolic blood pressure 59 mm[Hg] Dr. Mitul Rutherford Work Phone: [facility] 08-19-2023 13:28-0500 Heart rate 89 /min Dr. Mitul Rutherford Work Phone: [facility] 08-19-2023 13:28-0500 Respiratory rate 12 /min Dr. Mitul Rutherford Work Phone: [facility] 08-19-2023 13:28-0500 SaO2% (BldA) [Mass fraction] 97 % Dr. Mitul Rutherford Work Phone: [facility] 08-19-2023 13:28-0500 Systolic blood pressure 128 mm[Hg] Dr. Mitul Rutherford Work Phone: [facility] 08-18-2023 21:57-0500 Body mass index (BMI) [Ratio] 30.9 kg/m2 Dr. Mitul Rutherford Work Phone: [facility] 08-15-2023 13:07-0500 Body height 154.[address] Mitul Rutherford Work Phone: [facility] 08-15-2023 13:07-0500 Body weight 74.[address] Mitul Rutherford Work Phone: [facility] 08-14-2023 12:51-0500 Body temperature 97.9 [degF] Dr. Mitul Rutherford Work Phone: [facility] 08-14-2023 12:51-0500 Diastolic blood pressure 54 mm[Hg] Dr. Mitul Rutherford Work Phone: [facility] 08-14-2023 12:51-0500 Heart rate 89 /min Dr. Mitul Rutherford Work Phone: 0(534)393-773730 [place] [address] 08-14-2023 12:51-0500 Respiratory rate 15 /min Dr. Mitul Rutherford Work Phone: 0(475)[phone] [address] 08-14-2023 12:51-0500 SaO2% (BldA) [Mass fraction] 99 % Dr. Mitul Rutherford Work Phone: 5(339)458-222967 [address] 08-14-2023 12:51-0500 Systolic blood pressure 118 mm[Hg] Dr. Mitul Rutherford Work Phone: 9(536)[phone] [address] 08-14-2023 10:29-0500 Body mass index (BMI) [Ratio] 31.1 kg/m2 Dr. Mitul Rutherford Work Phone: 5(345)[phone] [address] 08-14-2023 10:29-0500 Body weight 74.[address] iMtul Rutherford Work Phone: 4(686)757-238967 [address] 08-14-2023 10:28-0500 Body height 154.[address] Mitul Rutherford Work Phone: 6(229)[phone] [place] [address] 07-29-2023 09:13-0500 Body mass index (BMI) [Ratio] 31.1 kg/m2 Dr. Mitul Rutherford Work Phone: [facility] 07-29-2023 09:13-0500 Body temperature 98.3 [degF] Dr. Mitul Rutherford Work Phone: [facility] 07-29-2023 09:13-0500 Body weight 74.[address] Mitul Rutherford Work Phone: [facility] 07-29-2023 09:13-0500 Diastolic blood pressure 72 mm[Hg] Dr. Mitul Rutherford Work Phone: [facility] 07-29-2023 09:13-0500 Heart rate 112 /min Dr. Mitul Rutherford Work Phone: [facility] 07-29-2023 09:13-0500 Respiratory rate 12 /min Dr. Mitul Rutherford Work Phone: [facility] 07-29-2023 09:13-0500 SaO2% (BldA) [Mass fraction] 96 % Dr. Mitul Rutherford Work Phone: [facility] 07-29-2023 09:13-0500 Systolic blood pressure 120 mm[Hg] Dr. Mitul Rutherford Work Phone: [facility] 06-07-2023 21:47-0500 Body temperature 98.1 [degF] Dr. Mitul Rutherford Work Phone: [facility] 06-07-2023 21:47-0500 Diastolic blood pressure 64 mm[Hg] Dr. Mitul Rutherford Work Phone: [facility] 06-07-2023 21:47-0500 Heart rate 71 /min Dr. Mitul Rutherford Work Phone: [facility] 06-07-2023 21:47-0500 Respiratory rate 18 /min Dr. Mitul Rutherford Work Phone: [facility] 06-07-2023 21:47-0500 SaO2% (BldA) [Mass fraction] 96 % Dr. Mitul Rutherford Work Phone: [facility] 06-07-2023 21:47-0500 Systolic blood pressure 129 mm[Hg] Dr. Mitul Rutherford Work Phone: [facility] 06-07-2023 12:10-0500 Body height 154.[address] Mitul Rutherford Work Phone: [facility] 06-07-2023 12:10-0500 Body weight 77.[address] Mitul Rutherford Work Phone: [facility] 06-07-2023 11:35-0500 Body mass index (BMI) [Ratio] 32.3 kg/m2 Dr. Mitul Rutherford Work Phone: [facility] 06-06-2023 23:00-0500 Diastolic blood pressure 56 mm[Hg] [facility] 06-06-2023 23:00-0500 Heart rate 70 /min [facility] 06-06-2023 23:00-0500 Respiratory rate 16 /min [facility] 06-06-2023 23:00-0500 SaO2% (BldA) [Mass fraction] 97 % [facility] 06-06-2023 23:00-0500 Systolic blood pressure 136 mm[Hg] [facility] 06-06-2023 20:14-0500 Body height 157.48 cm [facility] 06-06-2023 20:14-0500 Body mass index (BMI) [Ratio] 30.9 kg/m2 [facility] 06-06-2023 20:14-0500 Body weight 76.7 kg [facility] 06-06-2023 18:29-0500 Body temperature 99 [degF] [facility] 02-12-2022 12:45-0400 Diastolic Blood Pressure NBP [address] TANIA JAFFE MD [facility] 02-12-2022 12:45-0400 Heart rate 93 /min DR TANIA JAFFE MD [facility] 02-12-2022 12:45-0400 Respiratory rate 16 /min DR TANIA JAFFE MD [facility] 02-12-2022 12:45-0400 Systolic Blood Pressure NBP [address] TANIA JAFFE MD [facility] 02-12-2022 10:55-0400 Diastolic Blood Pressure NBP [address] TANIA JAFFE MD [facility] 02-12-2022 10:55-0400 Heart rate 89 /min DR TANIA JAFFE MD [facility] 02-12-2022 10:55-0400 Respiratory rate 16 /min DR TANIA JAFFE MD [facility] 02-12-2022 10:55-0400 Systolic Blood Pressure NBP [address] TANIA JAFFE MD [facility] 02-12-2022 10:15-0400 Diastolic Blood Pressure NBP [address] TANIA JAFFE MD [facility] 02-12-2022 10:15-0400 Heart rate 92 /min DR TANIA JAFFE MD [facility] 02-12-2022 10:15-0400 Respiratory rate 16 /min DR TANIA JAFFE MD [facility] 02-12-2022 10:15-0400 Systolic Blood Pressure NBP [address] TANIA JAFFE MD [facility] 02-12-2022 09:11-0400 Body temperature 96.44 [degF] DR TANIA JAFFE MD [facility] 02-12-2022 05:59-0400 Body height [address] TANIA JAFFE MD [facility] 02-12-2022 05:59-0400 Body temperature 97.34 [degF] DR TANIA JAFFE MD [facility] 02-12-2022 05:59-0400 Body weight 78.[address] TANIA JAFFE MD [facility] 02-12-2022 05:59-0400 Heart rate 86 /min DR TANIA JAFFE MD [facility] 01-29-2022 10:18-0400 Body height [address] TANIA JAFFE MD [facility] 01-29-2022 10:18-0400 Body weight 78.[address] TAINA JAFFE MD [facility] 01-29-2022 10:18-0400 Body weight 32.55 kg/m2 DR TANIA JAFFE MD [facility] 01-29-2022 10:18-0400 diastolic 80 mm[Hg] DR TANIA JAFFE MD [facility] 01-29-2022 10:18-0400 Heart rate 90 /min DR TANIA JAFFE MD [facility] 01-29-2022 10:18-0400 systolic 132 mm[Hg] DR TANIA JAFFE MD [facility] Encounters Encounter Date Encounter Type Care Provider Facility Start: 01-07-2025 ambulatory DIANNE CASE APRN-BLOCKER AND [employer]TER CONTACT LENS Facility:[facility] Start: 01-04-2025 ambulatory MITUL RUTHERFORD MD Facilit y:A Start: 01-04-2025 End: 01-05-2025 Evaluation and management of inpatient DR TESSA KENNY MD [facility] Start: 12-09-2024 ambulatory MITUL RUTHERFORD MD Facilit y:A Start: 12-01-[address] TESSA KENNY MD Facility:A Start: 12-01-2024 End: 12-01-[address] TESSA KENNY MD [facility] Start: 11-29-2024 End: 11-29-[address] TESSA KENNY MD Facility:[facility] Start: 11-29-2024 End: 11-29-[address] TESSA KENNY MD [facility] Start: 10-20-2024 End: 10-20-2024 ambulatory MITUL RUTHERFORD MD Facility:[facility] Start: 07-08-2024 End: 07-08-2024 ambulatory MITUL RUTHERFORD MD Facility:A Start: 07-08-2024 End: 07-08-2024 SAME DAY STAY JAIRON RG MD [facility] Start: 03-25-2024 End: 03-25-2024 ambulatory Valdo Izquierdo Facility:[facility] Start: 03-23-2024 End: 03-23-2024 ambulatory Mitul Rutherford Facility:[facility] Start: 03-10-2024 End: 03-10-2024 ambulatory Mitul Rutherford Facility:[facility] Start: 01-27-2024 ambulatory Russ Phelps [facility] Start: 01-27-2024 End: 01-29-2024 [facility] Start: 01-12-2024 End: 01-12-[address] TESSA KENNY MD Facility:[facility] Start: 01-12-2024 End: 01-12-[address] TESSA KENNY MD [facility] Start: 12-25-2023 Encounter for preprocedural laboratory examination Valdo [facility] Start: 12-16-2023 End: 12-16-2023 [facility] Start: 12-04-2023 ambulatory Valdo [facility]a Facilit y:[facility] Start: 12-04-2023 ambulatory Valdomilvia Izquierdo Facilit y:[facility] Start: 11-25-2023 End: 11-25-2023 ambulatory Valdo Bannersiena Facility:[facility] Start: 09-30-2023 End: 09-30-[address] Mitul Rutherford Work Phone: [facility] Work Phone: Start: 09-30-2023 End: 09-30-[address] Mitul Rutherford Work Phone: [facility] [place] Work Phone: Start: 09-30-2023 End: 09-30-2023 ambulatory Mitul Rutherford Facility:[facility] Start: 09-06-2023 End: 09-06-2023 Emergency department patient visit RUSS DELGADO [facility] Start: 09-05-2023 End: 09-06-2023 Emergency department patient visit Russ Delgado MD Work Phone: [facility] Comment on above: Dehydration (Primary Dx); Yeast vaginitis; Fatigue, unspecified type Start: 08-19-2023 Non-patient / Non-visit Dr. Dev Rutherford Work Phone: [facility] Work Phone: Start: 08-18-2023 Non-patient / Non-visit Dr. Dev Rutherford Work Phone: [facility] Work Phone: Start: 08-17-2023 Non-patient / Non-visit Dr. Dev Rutherford Work Phone: [facility] Work Phone: Start: 08-16-2023 Non-patient / Non-visit Dr. Dev Rutherford Work Phone: [facility] Work Phone: Start: 08-15-2023 ambulatory Mukul Franco Fac ility:[facility] Start: 08-15-2023 End: 08-19-2023 Evaluation and management of inpatient Dr. Mitul Rutherford Work Phone: [facility] Work Phone: Start: 08-15-2023 Non-patient / Non-visit Dr. Dev Rutherford Work Phone: [facility] Work Phone: Start: 08-14-2023 Non-patient / Non-visit Dr. Dev Rutherford Work Phone: [facility] Work Phone: Start: 08-14-2023 Evaluation and manag ement of inpatient Dr. Mitul Rutherford Work Phone: [facility] Work Phone: Start: 08-14-[address] Mitul Rutherford Work Phone: [facility] Work Phone: Start: 08-14-2023 ambulatory Mukul Franco Fac ility:[facility] Start: 07-29-2023 End: 07-29-[address] Mitul Rutherford Work Phone: [facility] Work Phone: Start: 07-29-2023 End: 07-29-2023 ambulatory Tania DUKE Facility:[facility] Start: 06-11-2023 End: 06-20-2023 ambulatory PAWEL BRUCE Facility:[facility] Start: 06-11-2023 End: 06-20-2023 Subsequent hospital visit by physician Pawel Bruce DO Work Phone: [facility] Start: 06-08-2023 Non-patient / Non-visit Dr. Dev Rutherford Work Phone: [facility] Work Phone: Start: 06-07-2023 ambulatory Yoana Crawford MD Work Phone: Neurosurgery Comment on above: Cerebellar stroke (H CC) (Primary Dx) Start: 06-07-2023 Telemedicine consult ation with patient Yoana Crawford MD Work Phone: [facility] Start: 06-07-2023 End: 06-07-2023 Evaluation and management of inpatient Dr. Mitul Rutherford [facility] Work [facility]: Start: 06-07-2023 Non-patient / Non-visit Dr. Dev Rutherford Work Phone: [facility] Work Phone: Start: 06-07-2023 ambulatory Mitul Rutherford Facility:[facility] Start: 06-07-2023 Evaluation and manag ement of inpatient [facility] Work Phone: Start: 06-07-2023 Non-patient / Non-visit Dr. Dev Rutherford Work Phone: [facility] Work Phone: Start: 06-07-2023 observation encounter [facility] Work Phone: Start: 02-12-2022 End: 02-12-[address] TANIA JAFFE MD [facility] Start: 01-29-2022 End: 01-29-[address] TANIA JAFFE MD [facility] Start: 01-29-2022 End: 01-29-[address] TANIA JAFFE MD [facility] Start: 01-24-2022 End: 01-24-2022 Discharged [facility] Start: 01-03-2022 Registered [facility] Start: 12-31-2021 End: 12-31-2021 Patient encounter procedure [facility] Procedures Date Procedure Procedure Detail Performing Clinician Start: 10-20-[address] GUILLE KENNY MD Comment on above: IMPRESSION : The est imated EF is 60%. severe mitral valve stenosis. Unable to assess diastolic dysfunction. The left atrium is mildly enlarged. 10/20/2024 Summary: 1. Left ventricle: The cavity size is normal. Wall thickness is mildly increased. Systolic function is normal. The estimated ejection fraction is 60-65%. Wall motion is normal; there are no regional wall motion abnormalities. Unable to assess diastolic function. 2. Mitral valve: Leaflet mobility is moderately restricted. Diastolic leaflet doming is present. 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 The mean diastolic gradient is 9 mm Hg. The valve area by pressure half-time is 1.5 cm . The valve area (LVOT continuity) is 0.9 cm . 3. Left atrium: The atrium is moderately dilated. 4. Right ventricle: The RV systolic pressure by Doppler is 49 mm Hg. 5. Pulmonic valve: There is mild, 1+ regurgitation. 6. Tricuspid valve: There is mild, 1+ regurgitation. 7. Right atrium: The atrium is mildly dilated. The estimated right atrial pressure is 15 mm Hg. Start: 07-08-2024 Implantable loop rec order in situ JAIRON RG MD Comment on above: [employer] LINQ II SN # [id number] Start: 09-30-2023 Plain x-ray of wrist Dr Christina Rutherford Work Phone: Start: 09-30-2023 Plain x-ray of hand Dr. Mitul Rutherford Work Phone: Start: 09-06-2023 Comprehensive metabo lic panel Russ Delgado MD Work Phone: Start: 09-05-2023 Urinalysis complete panel - Urine Russ Delgado MD Work Phone: Start: 09-05-2023 Urnls dip stick/tabl et reagent auto microscopy Russ Delgado MD Work Phone: Start: 08-14-2023 MRI of brain without contrast Dr. Mitul Rutherford Work Phone: Start: 08-14-[address] Mitul Rutherford Work Phone: Start: 08-14-2023 CT angiography of head Dr. Mitul Rutherford Work Phone: Start: 08-14-2023 Plain chest X-ray Dr. Zeeshan Rutherford Work Phone: Start: 08-14-2023 CT of head without contrast Dr. Mitul Rutherford Work Phone: Start: 06-16-2023 Blood count complete automated Pawel Bruce DO Work Phone: Start: 06-12-2023 Basic metabolic pane l calcium total Pawel Bruce DO Work Phone: Start: 06-07-2023 CT angiography of he ad and neck Dr. Mitul Rutherford Work Phone: Start: 06-07-2023 MRI of brain without contrast Dr. Mitul Rutherford Work Phone: Start: 06-06-2023 CT of head without contrast Start: 02-12-[address] TANIA JAFFE MD Start: 12-31-2021 Bacteria identified in Urine by Culture Start: 12-31-2021 Urine culture Start: 12-15-[address] CINTHYA EDWARD Comment on above: IMPRESSION : The est imated EF is 60%. severe mitral valve stenosis. Unable to assess diastolic dysfunction. The left atrium is mildly enlarged. Arthroplasty of knee JAIRON HERRERA MD Comment on above: left knee Arthroscopy of knee DR ROX JAFFE MD Comment on above: bilateral Bacteria identified in Urine by Culture Decompression of med flynn nerve DR TANIA JAFFE MD Comment on above: right Tonsillectomy DR TANIA BAEZ MD Urine culture Plan of Treatment Date Care Activity Detail Author Start: 06-12-2026 Diabetes Screening Diabetes Screening [facility] Start: 08-19-2023 Patient discharge [facility] Start: 08-15-2023 Admission procedure [facility] Start: 08-15-2023 Telemedicine consultation with patient [facility] Start: 08-14-2023 Implementation of planned interventions [facility] Start: 08-14-2023 Notification of physician [facility] Start: 08-14-2023 Following clinical pathway protocol [facility] Start: 08-14-2023 Application of intermittent pneumatic compression device [facility] Start: 08-14-2023 Ambulation without limitation [facility] Start: 08-14-2023 Assessment of risk of venous thromboembolism [facility] Start: 08-14-2023 Cardiac monitoring [facility] Start: 08-14-2023 Catheterization of vein [facility] Start: 08-14-2023 Elevation of head of bed [facility] Start: 08-14-2023 Exercises [facility] Start: 08-14-2023 Implementation of planned interventions [facility] Start: 08-14-2023 Insertion of catheter into peripheral vein [facility] Start: 08-14-2023 Measuring intake and output [facility] Start: 08-14-2023 Notification of physician [facility] Start: 08-14-2023 Patient referral to dietitian [facility] Start: 08-14-2023 Providing care according to standard [facility] Start: 08-14-2023 Referral to occupational therapist [facility] Start: 08-14-2023 Referral to service [facility] Start: 08-14-2023 Speech therapy assessment [facility] Start: 08-14-2023 Tobacco use cessation education [facility] Start: 08-14-2023 [facility] Start: 08-14-2023 Vital signs measurements [facility] Start: 08-14-2023 Bacteria identified in Urine by Culture [facility] Start: 08-14-2023 Verification routine [facility] Start: 08-14-2023 Admission procedure [facility] Start: 08-14-2023 Hospital admission, emergency, from emergency room, medical nature [facility] Start: 08-14-2023 [facility] Start: 08-14-2023 [facility] Start: 08-14-2023 Patient referral to dietitian [facility] Start: 06-07-2023 Telepractice consultation [facility] Start: 06-07-2023 Admission procedure [facility] Start: 06-07-2023 Referral to occupational therapist [facility] Start: 06-07-2023 Referral to service [facility] Start: 06-07-2023 Speech therapy assessment [facility] Start: 06-07-2023 Telepractice consultation [facility] Start: 06-07-2023 Following clinical pathway protocol [facility] Start: 06-07-2023 Assessment of risk of venous thromboembolism [facility] Start: 06-07-2023 Cardiac monitoring [facility] Start: 06-07-2023 Catheterization of vein [facility] Start: 06-07-2023 Continuous pulse oximetry [facility] Start: 06-07-2023 Elevation of head of bed [facility] Start: 06-07-2023 Exercises [facility] Start: 06-07-2023 Implementation of planned interventions [facility] Start: 06-07-2023 Insertion of catheter into peripheral vein [facility] Start: 06-07-2023 Notification of physician [facility] Start: 06-07-2023 Oxygen therapy [facility] Start: 06-07-2023 Patient referral to dietitian [facility] Start: 06-07-2023 Providing care according to standard [facility] Start: 06-07-2023 Referral to service [facility] Start: 06-07-2023 Tobacco use cessation education [facility] Start: 06-07-2023 [facility] Start: 06-07-2023 Vital signs measurements [facility] Start: 06-07-2023 MRI of brain without contrast Brain without Contrast [facility] Start: 06-07-2023 Verification routine [facility] Start: 06-07-2023 Admission procedure [facility] Start: 06-07-2023 Hospital admission, emergency, from emergency room, medical nature [facility] Start: 06-07-2023 Patient discharge [facility] Start: 03-28-2023 Influenza vaccination Influenza Vaccine (#1) [facility] Start: 07-28-2022 Advance Directive Discussion Advance Directive Discussion [facility] Start: 07-28-2022 Depression Assessment Depression Assessment [facility] Start: 01-23-2004 Bone Density Screening Bone Density Screening [facility] Start: 01-23-2004 Pneumococcal Vaccine: 65+ Years (1 of 1 - PCV) Pneumococcal Vaccine: 65+ Years (1 of 1 - PCV) [facility] Start: 1999 RSV Immunization aged 60 or older (1 - 1-dose 60+ series) RSV Immunization aged 60 or older (1 - 1-dose 60+ series) [facility] Start: 1999 RSV Vaccine (1 - 1-dose 60+ series) RSV Vaccine (1 - 1-dose 60+ series) [facility] Start: 1989 Shingrix Vaccine (1 of 2) Shingrix Vaccine (1 of 2) [facility] Start: 1989 Zoster Vaccines (1 of 2) Zoster Vaccines (1 of 2) [facility] Start: 1958 DTaP/Tdap/Td Vaccines (1 - Tdap) DTaP/Tdap/Td Vaccines (1 - Tdap) [facility] Start: 1958 Urine microalbumin profile DTaP,Tdap,Td Vaccine (1 - Tdap) [facility] Start: 1951 Depression Screening Depression Screening [facility] Start: 1945 Pneumococcal Vaccine: 65+ (1 - PCV) Pneumococcal Vaccine: 65+ (1 - PCV) [facility] Start: 1939 Covid-19 Vaccine (#1) Covid-19 Vaccine (#1) [facility] Start: 1939 Lipid panel Lipid Panel [facility] Start: 1939 Medicare Advantage Annual Wellness Visit (AWV) Medicare Advantage Annual Wellness Visit (AWV) [facility] Start: 1939 Screening for osteoporosis Bone Density Scan [facility] Cardiac event recording [facility] Patient referral [facility] Work Phone: [facility] Payers Date Payer Category Payer Medicare [id number] 2024 Medicare [id number] 2024 Medicaid [id number] 2024 Private Health Insurance [id number] 2024 Medicaid [id number] 2023 Medicare [id number] 2023 Medicare [id number] 2023 Self-pay [id number] 2005 Medicare [id number] 2000 Private Health Insurance [id number] 2000 Unknown [id number] 1939 Unknown [id number] 2.16.8 40.1.955854.3.579.2. 1939 Unknown [id number] 2. 840.1.258626.3.579.2. 1939 Unknown [id number] 2.16. 840.1.320699.3.579.2. 1939 Unknown [id number] 2.16.8 40.1.134223.3.579.2.627 1939 Unknown [id number] 2.16.8 40.1.450702.3.579.2.62 1939 Unknown [id number] 2.16.8 40.1.881459.3.579.2.627 1939 Unknown [id number] 2.16. 840.1.081048.3.579.2.62 1939 Unknown [id number] 2.16.8 40.1.320539.3.579.2.627 1939 Unknown [id number] 2.16.8 40.1.624856.3.579.2.627 Medicare [id number] Unknown [id number] Unknown [id number]. 1.13.159.2.7.3.707136.315 Unknown [id number] 2.16.8 40.1.140200.3.579.2.462 Unknown [id number] 2.16.8 40.1.852190.3.579.2.462 Unknown [id number] 2.16.8 40.1.337559.3.579.2.462 Unknown [id number] 2.16.8 40.1.611528.3.579.2.462 Unknown [id number] 2.16.8 40.1.930966.3.579.2.462 Unknown [id number] 2.16.8 40.1.901281.3.579.2.462 Unknown [id number] 2.16.8 40.1.083513.3.579.2.462 Unknown [id number] 2.16.8 40.1.624627.3.579.2.462 Unknown [id number] 2.16.8 40.1.182119.3.579.2.462 Unknown [id number] 2.16.8 40.1.774652.3.579.2.462 Unknown [id number] 2.16.8 40.1.810356.3.579.2.462 Unknown [id number] 2.16.8 40.1.878613.3.579.2.462 Unknown [id number] 2.16.8 40.1.353972.3.579.2.462 Unknown [id number] 2.16.8 40.1.052186.3.579.2.462 Unknown [id number] 2.16.8 40.1.005636.3.579.2.462 Unknown [id number] 2.16.8 40.1.637120.3.579.2.462 Unknown [id number] 2.16.8 40.1.848634.3.579.2.462 Unknown [id number] 2.16.8 40.1.693877.3.579.2.462 Unknown [id number] 2.16.8 40.1.445427.3.579.2.462 Unknown [id number] 2.16.8 40.1.851626.3.579.2.462 Unknown [id number] 2.16.8 40.1.361242.3.579.2.462 Unknown [id number] 2.16.8 40.1.702967.3.579.2.462 Unknown [id number] 2.16.8 40.1.613142.3.579.2.462 Unknown [id number] 2.16.8 40.1.873780.3.579.2.462 Unknown [id number] 2.16.8 40.1.422250.3.579.2.462 Social History Date Type Detail Facility Start: 01-24-2021 End: 08-19-2023 Tobacco smoking status WIIS Unknown if ever smoked [facility] Start: 1940 Sex Assigned At Female [facility] Start: 03-13-2021 End: 10-07-2024 Tobacco smoking status Never smoked tobacco (finding) [facility] Sex Assigned At [facility] Start: 06-07-2023 Non-smoker [facility] Start: 1940 Sex Assigned At Not on file [facility] Start: 06-09-2023 End: 09-05-2023 Gender identity Not on file [facility] Work Phone: Start: 06-09-2023 End: 09-05-2023 History of Social function [facility] Work Phone: How hard is it for y ou to pay for the very basics like food, housing, medical care, and heating Not hard at all [facility] Work Phone: (I/We) worried curt er (my/our) food would run out before (I/we) got money to buy more. Never true [facility] Work Phone: In the past 12 month s, was there a time when you were not able to pay the mortgage or rent on time? No [facility] Work Phone: Start: 09-05-2023 Tobacco use and exposure Smokeless tobacco non-user [facility] Start: 09-05-2023 Alcohol intake Lifetime non-d val (finding) [facility] How often to you hav e a drink containing alcohol? Never [facility] Goal Desired Activity /State Functional Status Date Assessment Result Facility 12-01-2024 Functional Status Awake [facility] 12-01-2024 Functional Status Room check performed [facility] 12-01-2024 Functional Status [facility] 12-01-2024 Functional Status Maintained [facility] 07-08-2024 Functional Status Awake [facility] 07-08-2024 Functional Status Room check per formed, Bronc Buster at bedside [facility] 07-08-2024 Functional Status [facility] 08-19-2023 Functional status Ambulates;Xavi r;Bedside Commode [facility] Work Phone: 06-07-2023 Functional status Activity Abili ty With Assist of 1 [facility] Work Phone: 06-07-2023 Functional status Patient Activity Ambula seun [facility] Work Phone: 02-12-2022 Functional Status Dtr will be st veronicaing with patient [facility] 02-12-2022 Functional Status ice on [facility] 02-12-2022 Functional Status [facility] 02-12-2022 Functional Status Maintained [facility] 01-29-2022 Functional Status Sensory Deficits None A [facility] Mental Status Date Assessment Result Facility 12-01-2024 Mental Status Oriented x 4 [facility] 12-01-2024 Mental Status [facility] 12-01-2024 Mental Status [facility] 07-08-2024 Mental Status Orientation Oriented x 4 [facility] 07-08-2024 Mental Status [facility] 07-08-2024 Mental Status [facility] 08-19-2023 Cognitive function Voice/Name [facility] Work Phone: 08-14-2023 Cognitive function Awake;Alert;A ppropriate;Follo ws Commands [facility] Work Phone: 06-07-2023 Cognitive function Voice/Name [facility] Work Phone: 02-12-2022 Mental Status Orientation Asse ssment Oriented x 4 [facility] 02-12-2022 Mental Status Orientation Oriented x 4 [facility] 02-12-2022 Mental Status [facility] Clinical Notes 12-05-2020 to 01-05-2025 Note Date & Type Note Facility 01-05-2025 Note Discharge Instructions Thank you for allowing [facility] to assist you with your healthcare needs. The following is important discharge information regarding your hospital visit. Your Care Team MITUL RUTHERFORD MD Your Diagnosis History of CVA (cerebrovascular accident) Mitral valve stenosis S/P balloon mitral valvuloplasty What to do next Instructions From Your Doctor - No heavy lifting, pushing, or pulling more than 10 lb for 3-4 days - May shower starting tomorrow. No tub bathing/swimming pool/hot tub until groin site completely healed - Wash groin sites at least once a day with new washcloth and antibacterial soap for 1 week or until healed - Do not apply any cream, powder, or lotion to area until completely healed - If present, may remove dressings on groin sites while in shower tomorrow. May leave open to air or cover with loose gauze dressing - If you did not receive an envelope prior to discharge, you will be called/mailed information for follow-up testing (echocardiogram and lab work) to be done before your follow-up visit. Lab work should be done around the same time as your echocardiogram and can be done at any lab. - New medication: Lasix 20 mg once a day, metoprolol 25 mg once a day - Continue Lovenox injections twice a day until your INR is therapeutic between 2-3 - Please have lab work done in 1 week and fax results to [phone] - Continue your warfarin - Due to your tissue heart valve you will need to take antibiotics prior to any dental work. A prescription was sent to your pharmacy. Take one hour prior to any dental work - Please call Cleo (RN valve coordinator) [phone] or Dianne (nurse practitioner) [phone] with questions/concerns regarding procedure or follow-up. Scheduled Follow-Up Appointments Appointment Type When Where Contact Information StatusCV Remote Procedure HM 01/07/2025 10:00 AM EDT [facility] Confirmed Echo - Echocardiogram Adult 02/02/2025 01:00 PM EDT [facility] [phone] Confirmed Follow Up Appointments Follow Up with [address] [facility], When:Within 1-2 days Follow Up with MITUL RUTHERFORD When:Within 1-2 days Where:[facility] [address] [place] [address]- Business (1) Follow Up with TESSA PLUNKETT MD When:In 4 weeks Where:[address] [place] [phone] Additional Information: TAVR follow-up. Echo and labs prior to office visit as scheduled Follow Up with Echocardiogram When:02/02/2025 01:00 PM EDT Additional Information: This test is scheduled at [facility]. Please have lab work done around the same time, prior to your office visit. The Following Activity and Diet Have Been Ordered for You Transfer of Care Activity - Ordered -- Lifting Restricted less than 10 pounds, no lifting/pushing/pulling more than 10 lb fo 10 days, 01/05/25 10:46:00 EDT Transfer of Care Diet - Ordered -- Type of Diet: Regular Diet, 01/05/25 10:46:00 EDT The Following Equipment Has Been Ordered for You Discharge Home Equipment Transfer of Care Wound Care - Ordered -- clean groin site once a day with soap and water until healed (5-7 days). Leave open to air., 01/05/25 10:46:00 EDT The Following Treatments Have Been Ordered for You Discharge Labs Transfer of Care Labwork - Ordered -- CBC, BMP, PT/INR, severe mitral stenosis, 01/05/25 10:46:00 EDT Discharge Radiology No qualifying data available. Other Therapies No qualifying data available. Post Acute Orders Transfer of Care Admission Level of Care - Ordered -- Level of Care ICF, 01/05/25 10:46:09 EDT Transfer of Care Code Status - Ordered -- Full Code, Constant Order Transfer of Care Labwork - Ordered -- CBC, BMP, PT/INR, severe mitral stenosis, 01/05/25 10:46:00 EDT Transfer of Care Orders Electronically Signed By - Ordered -- 01/05/25 10:46:00 EDT, TESSA PLUNKETT MD Transfer of Care Prognosis - Ordered -- Good, Patient Aware: Yes Transfer of Care Rehab Potential - Ordered -- Rehab potential good, 01/05/25 10:46:09 EDT Someone Will Contact You Regarding These Home Health Referrals No home referrals have been ordered for you. No one will call you. Allergies NKA Medications Please ask your primary doctor or pharmacist before taking any other medication not listed, including over the counter drugs, herbal medications, vitamins and or supplements as they may interact with your home medications. What How Much When Instructions Last Dose New enoxaparin (Lovenox 80 mg/ 0.8 mL injectable solution) 0.7 Milliliter Subcutaneous Every 12 hours Duration: 7 Days until INR 2-3 Pickup at [id number] New furosemide (Lasix 20 mg oral tablet) 1 tab(s) by mouth Every day Refills: 5 Pickup at [facility][id number] New metoprolol (Toprol-XL 25 mg oral tablet, extended release) 1 tab(s) by mouth Once a day with a meal Refills: 5 Pickup at [facility] #[id number] Unchanged ascorbic acid (Vitamin C 500 mg oral tablet) 1 tab(s) by mouth Once a day Unchanged magnesium oxide (Magnesium 250 mg tablet) 2 tab(s) by mouth Once a day Duration: 7 Days Unchanged multivitamin (Multivitamin) 1 tab(s) by mouth Every day Unchanged warfarin (warfarin 5 mg oral tablet) 1 tab(s) by mouth Every day Pharmacy Information [facility] #[id number]: 1956 [place], [place] [phone] Please take this list to your next doctor s visit. Bring all medications you take, including over the counter medications, herbals and other supplements with you to your doctor s visit. Patients and families are reminded to discard old lists and to update any records with all medication providers or retail pharmacies. Education Materials Mitral Valve Stenosis Mitral valve stenosis is a narrowing of the mitral valve, which is the valve between the upper left chamber (left atrium) and the lower left chamber (left ventricle) of the heart. This condition can limit blood flow between the left atrium and the left ventricle. If you have this condition, your health care provider may hear an abnormal sound (heart murmur) while listening to your heart. This condition can range from mild to severe. What are the causes? This condition may be caused by: Rheumatic fever, which is a complication of a strep infection. A buildup of calcium around the valve. This can occur with aging. A problem that is present at (congenital defect). Certain long-term (chronic) diseases. What are the signs or symptoms? Symptoms of this condition include: Shortness of breath. Cough. Noisy breathing (wheezing). Tiredness (fatigue) or decreased energy. Fast or irregular heartbeats (palpitations). Heart murmur. Chest pain. Pain in the arm, neck, jaw, or face. Swollen feet or ankles. Hoarse voice. [place] and purple patches of skin on the face. How is this diagnosed? This condition may be diagnosed based on: A physical exam. Your health care provider will check for a heart murmur by listening to your heart. Tests, including: ? A test that creates ultrasound images of the heart that allow your health care provider to see how the heart valves work while your heart is beating (echocardiogram). ? A test that records the electrical impulses of the heart (electrocardiogram). ? Exercise stress tests. These are tests that evaluate the blood supply to your heart and your heart's response to exercise. ? A test to look at the structure and function of the heart (cardiac catheterization). A thin tube (catheter) is passed through the blood vessels and into the heart. Dye is injected into the blood vessels so the cardiac system can be seen on images that are taken. ? Chest X-rays. How is this treated? Treatment for this condition depends on the severity of the condition. It may include: Medicines to keep the heart rate regular. Medicines to control blood pressure. Blood thinners (anticoagulants) to prevent blood clots. Antibiotic medicines to prevent infections. Defective heart valves are more likely to become infected. A procedure in which a catheter is passed through a blood vessel to the heart and then a tiny balloon is inflated to open the mitral valve (percutaneous balloon valvuloplasty). Open heart surgery to repair or replace the mitral valve. Follow these instructions at home: Medicines Take dzmw-ngu-nronyrd and prescription medicines only as told by your health care provider. If you were prescribed an antibiotic medicine, take it as told by your health care provider. Do not stop taking the antibiotic even if you start to feel better. If you are taking blood thinners: ? Talk with your health care provider before you take any medicines that contain aspirin or NSAIDs. These medicines increase your risk for dangerous bleeding. ? Take your medicine exactly as told, at the same time every day. ? Avoid activities that could cause injury or bruising. ? Follow instructions about how to prevent falls. ? Wear a medical alert bracelet or carry a card that lists what medicines you take. Lifestyle Do not use any products that contain nicotine or tobacco, such as cigarettes, e-cigarettes, and chewing tobacco. If you need help quitting, ask your health care provider. Achieve and maintain a healthy weight. Ask your health care provider what kinds of exercise are safe for you. If you are taking blood thinners, avoid activities that have a high risk of injury. Ask your health care provider what activities are safe for you. Eating and drinking Limit your intake of caffeine and alcohol. Both of these substances can affect your heart's rate and rhythm. If you drink alcohol: ? Limit how much you use to: ? 0 1 drink a day for non women. ? 0 2 drinks a day for men. ? Be aware of how much alcohol is in your drink. In the [place] one drink equals one 12 oz bottle of beer (355 mL), one 5 oz glass of wine (148 mL), or one 1 oz glass of hard liquor (44 mL). Eat a heart-healthy diet that includes plenty of fresh fruits and vegetables, whole grains, low-fat (lean) proteins, and low-fat or nonfat dairy products. Consider working with a dietitian to help you make healthy food choices. Limit the amount of salt (sodium) in your diet. Avoid adding salt to foods, and avoid foods that are high in salt, such as: ? Pickles. ? Smoked and cured meats. ? Processed foods. General instructions Before any dental procedures, tell your dentist that you have mitral valve stenosis. You may need antibiotics to prevent a heart infection. If you plan to become , talk with your health care provider first. Keep all follow-up visits as told by your health care provider. This is important. Contact a health care provider if you: Have a fever. Feel more tired than usual when doing physical activity. Have a dry cough. Get help right away if you: Have pain or pressure in your chest that does not go away. Have difficulty breathing. Have palpitations. Have a sudden weight gain. Have swelling in your feet, ankles, or legs. Have trouble staying awake or you faint. Feel confused. These symptoms may represent a serious problem that is an emergency. Do not wait to see if the symptoms will go away. Get medical help right away. Call your local emergency services (911 in the [place] Do not drive yourself to the hospital. Summary Mitral valve stenosis is a narrowing of the mitral valve. This condition can limit blood flow on the left side of your heart. Depending on how severe your condition is, you may be treated with medicines, a procedure, or surgery. Practice heart-healthy habits to manage this condition. These include limiting alcohol, avoiding nicotine and tobacco, and eating a heart-healthy diet that is low in salt (sodium). This information is not intended to replace advice given to you by your health care provider. Make sure you discuss any questions you have with your health care provider. Document Released: 01/01/2011 Document Revised: 06/27/2019 Document Reviewed: 06/27/2019 [employer] Patient Education 2020 [employer] MITRAL VALVULOPLASTY Discharge Instructions DIET INSTRUCTIONS Resume your previous diet as tolerated Drink plenty of fluids for the next 48 hours to help your kidneys flush the dye out of your system ACTIVITIES May go up and down stairs CAREFULLY AFTER [address] FOR 5 DAYS AFTER PROCEDURE No heavy lifting GREATER THAN 10 POUNDS or pushing or straining FOR 5 DAYS Someone must stay with you at home after the procedure FOR 3 DAYS BATHING/SHOWERING May tub bathe in 1 week May shower tomorrow, but cover groin incisions with plastic for 3 days after procedure WOUND CARE You will go home with a Band-Aid over your catheter insertion site. Keep a Band-Aid on for the next 24 hours and then leave open to air. Some degree of bruising and tenderness is normal around the catheter insertion site. It will take a while for any bruising to completely resolve. Keep your site clean and dry. You need to report the following to your storage solutions architect: Any draining or oozing from the site Any swelling at the site Any increased pain or tenderness at the site Any numbness in your leg where the procedure was done Any signs of infection IMPORTANT! CALL 911 FOR ANY BLEEDING OR SWELLING AT THE PROCEDURE SITE If there is any large amount of bleeding, you or someone else need to apply direct pressure to the site (just like the nurse did in the heart lab after your procedure). It is very important that you hold constant pressure. Do not release the pressure to check if the bleeding has stopped. You then need to be transported to the nearest emergency room. WATCH FOR SIGNS OF INFECTION (Usually appears 36-48 hours after surgery) A temperature above 100.5 Redness or swelling Increased pain Foul odor or drainage If you have any questions, please call your doctor at the number listed on your follow up instructions. Follow all instructions given to you by your doctor Additional Information VACCINATE! IT SAVES LIVES! Members of the community who have not yet received the COVID-19 vaccine and would like to receive it can visit one of [facility] vaccine clinics. There are many vaccine clinic locations within the [facility]. For locations and available times, please visit [email or web address].o hio.gov/. It is important to note that some COVID mobile vaccine clinics are held outdoors and may be canceled in rainy or stormy conditions. To learn more about pediatric vaccinations (ages 5-11), we invite you to visit the [facility] webpage. [email or web address]/p [email or web address]-Knerxbrhhan-Freq [email or web address]-[email or web address].html To learn more about the COVID-19 vaccine, we invite you to visit the CDC website for a list of frequently asked questions.https://www.cdc.gov/co ronavirus/2019-ncov/vaccines/faq .html [facility] Patient Portal Access Instructions: Stay connected with your healthcare team and access your personal medical information anytime with the [facility] Patient Portal. Please follow the directions below to create your [facility] account: 1.Access the email account you provided upon registration to the hospital/physician office.2.Look for an invitation email from [facility].3.Open the email and access the invitation link: Accept Invitation to [facility].4.Fill in the required tristan to create your account. To access your account, visit [email or web address]. Click the blue button labeled Access Patient Portal and then log in with the username and password that you created in the steps above. You will be able to view your test results, lab results, a summary of your visits, upcoming appointments and more. There is also a convenient messaging option where you can send secure messages to your provider. In addition, you will have the ability to download any documents or summaries to your computer and/or send the information securely to a physician. Remember that your healthcare information is confidential, so carefully consider who you will allow to register on the [facility] Patient Portal for access to your information. You can also access the [facility] Patient Portal on the [employer] nakul. Simply click on Patient Portal and then log into your account. If you would like to receive a full copy of your medical records, please contact the [facility] Medical Records Department by calling [phone], Friday through Friday between 8 a.m. and 4:30 p.m. HOW TO SAFELY DISPOSE OF PRESCRIPTION MEDICATIONS Please use one of the following methods to safely dispose of your unused medications. 1.Use a drug disposal kit: the drug disposal pouch allows you to safely discard your old and unused drugs. Ask your nurse to give you one when you are discharged.2.Visit a local take-back location: Many local pharmacies and police departments have programs that collect old and unwanted prescription drugs. Call your local pharmacy or go to http://[employer]/4L1Af3v to find one close to you.3.Make use of household items: Use cat litter or old coffee grounds to dispose medications if other options are not available. Mix your drugs with these household products, seal them in an airtight container and throw it into the garbage. Call [facility]: [phone] to be sure your drugs can be [...] a CHART COPY. Signatures Patient Education Materials Mitral Valve Stenosis 3- SH MITRAL VALVULOPLASTY 08/11/2018(CUSTOM) Medication Leaflets My discharge plan and instructions have been reviewed and explained to me and IALEXY JANET M understand my current condition and have read and understand these discharge instructions. I have received a written copy of the plan/instructions. If I have questions, I am aware that I should contact my doctor. 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 The following is important discharge information regarding your hospital visit. Your Care Team MITUL RUTHERFORD MD Your Diagnosis History of CVA (cerebrovascular accident) Mitral valve stenosis S/P balloon mitral valvuloplasty What to do next Instructions From Your Doctor - No heavy lifting, pushing, or pulling more than 10 lb for 3-4 days - May shower starting tomorrow. No tub bathing/swimming pool/hot tub until groin site completely healed - Wash groin sites at least once a day with new washcloth and antibacterial soap for 1 week or until healed - Do not apply any cream, powder, or lotion to area until completely healed - If present, may remove dressings on groin sites while in shower tomorrow. May leave open to air or cover with loose gauze dressing - If you did not receive an envelope prior to discharge, you will be called/mailed information for follow-up testing (echocardiogram and lab work) to be done before your follow-up visit. Lab work should be done around the same time as your echocardiogram and can be done at any lab. - New medication: Lasix 20 mg once a day, metoprolol 25 mg once a day - Continue Lovenox injections twice a day until your INR is therapeutic between 2-3 - Please have lab work done in 1 week and fax results to [phone] - Continue your warfarin - Due to your tissue heart valve you will need to take antibiotics prior to any dental work. A prescription was sent to your pharmacy. Take one hour prior to any dental work - Please call Cleo LuceroRN valve coordinator) [phone] or Dianne (nurse practitioner) [phone] with questions/concerns regarding procedure or follow-up. Scheduled Follow-Up Appointments Appointment Type When Where Contact Information StatusCV Remote Procedure HM 01/07/2025 10:00 AM EDT [facility] Confirmed Echo - Echocardiogram Adult 02/02/2025 01:00 PM EDT [facility] [phone] Confirmed Follow Up Appointments Follow Up with [facility], When:Within 1-2 days Follow Up with MITUL RUTHERFORD When:Within 1-2 days Where:[facility] [address] [place] [address]- Business (1) Follow Up with TESSA PLUNKETT MD When:In 4 weeks Where:[address] [place] [phone] Additional Information: TAVR follow-up. Echo and labs prior to office visit as scheduled Follow Up with Echocardiogram When:02/02/2025 01:00 PM EDT Additional Information: This test is scheduled at [facility]. Please have lab work done around the same time, prior to your office visit. The Following Activity and Diet Have Been Ordered for You Transfer of Care Activity - Ordered -- Lifting Restricted less than 10 pounds, no lifting/pushing/pulling more than 10 lb fo 10 days, 01/05/25 10:46:00 EDT Transfer of Care Diet - Ordered -- Type of Diet: Regular Diet, 01/05/25 10:46:00 EDT The Following Equipment Has Been Ordered for You Discharge Home Equipment Transfer of Care Wound Care - Ordered -- clean groin site once a day with soap and water until healed (5-7 days). Leave open to air., 01/05/25 10:46:00 EDT The Following Treatments Have Been Ordered for You Discharge Labs Transfer of Care Labwork - Ordered -- CBC, BMP, PT/INR, severe mitral stenosis, 01/05/25 10:46:00 EDT Discharge Radiology No qualifying data available. Other Therapies No qualifying data available. Post Acute Orders Transfer of Care Admission Level of Care - Ordered -- Level of Care ICF, 01/05/25 10:46:09 EDT Transfer of Care Code Status - Ordered -- Full Code, Constant Order Transfer of Care Labwork - Ordered -- CBC, BMP, PT/INR, severe mitral stenosis, 01/05/25 10:46:00 EDT Transfer of Care Orders Electronically Signed By - Ordered -- 01/05/25 10:46:00 EDT, TESSA PLUNKETT MD Transfer of Care Prognosis - Ordered -- Good, Patient Aware: Yes Transfer of Care Rehab Potential - Ordered -- Rehab potential good, 01/05/25 10:46:09 EDT Someone Will Contact You Regarding These Home Health Referrals No home referrals have been ordered for you. No one will call you. Allergies NKA Medications Please ask your primary doctor or pharmacist before taking any other medication not listed, including over the counter drugs, herbal medications, vitamins and or supplements as they may interact with your home medications. What How Much When Instructions Last Dose New enoxaparin (Lovenox 80 mg/ 0.8 mL injectable solution) 0.7 Milliliter Subcutaneous Every 12 hours Duration: 7 Days until INR 2-3 Pickup at [facility] #[id number] New furosemide (Lasix 20 mg oral tablet) 1 tab(s) by mouth Every day Refills: 5 Pickup at [facility] #[id number] New metoprolol (Toprol-XL 25 mg oral tablet, extended release) 1 tab(s) by mouth Once a day with a meal Refills: 5 Pickup at [facility] #[id number] Unchanged ascorbic acid (Vitamin C 500 mg oral tablet) 1 tab(s) by mouth Once a day Unchanged magnesium oxide (Magnesium 250 mg tablet) 2 tab(s) by mouth Once a day Duration: 7 Days Unchanged multivitamin (Multivitamin) 1 tab(s) by mouth Every day Unchanged warfarin (warfarin 5 mg oral tablet) 1 tab(s) by mouth Every day Pharmacy Information [facility] #[id number]: [address] [place], [place] [phone] Please take this list to your next doctor s visit. Bring all medications you take, including over the counter medications, herbals and other supplements with you to your doctor s visit. Patients and families are reminded to discard old lists and to update any records with all medication providers or retail pharmacies. Education Materials Mitral Valve Stenosis Mitral valve stenosis is a narrowing of the mitral valve, which is the valve between the upper left chamber (left atrium) and the lower left chamber (left ventricle) of the heart. This condition can limit blood flow between the left atrium and the left ventricle. If you have this condition, your health care provider may hear an abnormal sound (heart murmur) while listening to your heart. This condition can range from mild to severe. What are the causes? This condition may be caused by: Rheumatic fever, which is a complication of a strep infection. A buildup of calcium around the valve. This can occur with aging. A problem that is present at (congenital defect). Certain long-term (chronic) diseases. What are the signs or symptoms? Symptoms of this condition include: Shortness of breath. Cough. Noisy breathing (wheezing). Tiredness (fatigue) or decreased energy. Fast or irregular heartbeats (palpitations). Heart murmur. Chest pain. Pain in the arm, neck, jaw, or face. Swollen feet or ankles. Hoarse voice. [place] and purple patches of skin on the face. How is this diagnosed? This condition may be diagnosed based on: A physical exam. Your health care provider will check for a heart murmur by listening to your heart. Tests, including: ? A test that creates ultrasound images of the heart that allow your health care provider to see how the heart valves work while your heart is beating (echocardiogram). ? A test that records the electrical impulses of the heart (electrocardiogram). ? Exercise stress tests. These are tests that evaluate the blood supply to your heart and your heart's response to exercise. ? A test to look at the structure and function of the heart (cardiac catheterization). A thin tube (catheter) is passed through the blood vessels and into the heart. Dye is injected into the blood vessels so the cardiac system can be seen on images that are taken. ? Chest X-rays. How is this treated? Treatment for this condition depends on the severity of the condition. It may include: Medicines to keep the heart rate regular. Medicines to control blood pressure. Blood thinners (anticoagulants) to prevent blood clots. Antibiotic medicines to prevent infections. Defective heart valves are more likely to become infected. A procedure in which a catheter is passed through a blood vessel to the heart and then a tiny balloon is inflated to open the mitral valve (percutaneous balloon valvuloplasty). Open heart surgery to repair or replace the mitral valve. Follow these instructions at home: Medicines Take sepz-plu-xjmcaqm and prescription medicines only as told by your health care provider. If you were prescribed an antibiotic medicine, take it as told by your health care provider. Do not stop taking the antibiotic even if you start to feel better. If you are taking blood thinners: ? Talk with your health care provider before you take any medicines that contain aspirin or NSAIDs. These medicines increase your risk for dangerous bleeding. ? Take your medicine exactly as told, at the same time every day. ? Avoid activities that could cause injury or bruising. ? Follow instructions about how to prevent falls. ? Wear a medical alert bracelet or carry a card that lists what medicines you take. Lifestyle Do not use any products that contain nicotine or tobacco, such as cigarettes, e-cigarettes, and chewing tobacco. If you need help quitting, ask your health care provider. Achieve and maintain a healthy weight. Ask your health care provider what kinds of exercise are safe for you. If you are taking blood thinners, avoid activities that have a high risk of injury. Ask your health care provider what activities are safe for you. Eating and drinking Limit your intake of caffeine and alcohol. Both of these substances can affect your heart's rate and rhythm. If you drink alcohol: ? Limit how much you use to: ? 0 1 drink a day for non women. ? 0 2 drinks a day for men. ? Be aware of how much alcohol is in your drink. In the [place] one drink equals one 12 oz bottle of beer (355 mL), one 5 oz glass of wine (148 mL), or one 1 oz glass of hard liquor (44 mL). Eat a heart-healthy diet that includes plenty of fresh fruits and vegetables, whole grains, low-fat (lean) proteins, and low-fat or nonfat dairy products. Consider working with a dietitian to help you make healthy food choices. Limit the amount of salt (sodium) in your diet. Avoid adding salt to foods, and avoid foods that are high in salt, such as: ? Pickles. ? Smoked and cured meats. ? Processed foods. General instructions Before any dental procedures, tell your dentist that you have mitral valve stenosis. You may need antibiotics to prevent a heart infection. If you plan to become , talk with your health care provider first. Keep all follow-up visits as told by your health care provider. This is important. Contact a health care provider if you: Have a fever. Feel more tired than usual when doing physical activity. Have a dry cough. Get help right away if you: Have pain or pressure in your chest that does not go away. Have difficulty breathing. Have palpitations. Have a sudden weight gain. Have swelling in your feet, ankles, or legs. Have trouble staying awake or you faint. Feel confused. These symptoms may represent a serious problem that is an emergency. Do not wait to see if the symptoms will go away. Get medical help right away. Call your local emergency services (911 in the [place] Do not drive yourself to the hospital. Summary Mitral valve stenosis is a narrowing of the mitral valve. This condition can limit blood flow on the left side of your heart. Depending on how severe your condition is, you may be treated with medicines, a procedure, or surgery. Practice heart-healthy habits to manage this condition. These include limiting alcohol, avoiding nicotine and tobacco, and eating a heart-healthy diet that is low in salt (sodium). This information is not intended to replace advice given to you by your health care provider. Make sure you discuss any questions you have with your health care provider. Document Released: 01/01/2011 Document Revised: 06/27/2019 Document Reviewed: 06/27/2019 [employer] Patient Education 2020 [employer] MITRAL VALVULOPLASTY Discharge Instructions DIET INSTRUCTIONS Resume your previous diet as tolerated Drink plenty of fluids for the next 48 hours to help your kidneys flush the dye out of your system ACTIVITIES May go up and down stairs CAREFULLY AFTER [address] FOR 5 DAYS AFTER PROCEDURE No heavy lifting GREATER THAN 10 POUNDS or pushing or straining FOR 5 DAYS Someone must stay with you at home after the procedure FOR 3 DAYS BATHING/SHOWERING May tub bathe in 1 week May shower tomorrow, but cover groin incisions with plastic for 3 days after procedure WOUND CARE You will go home with a Band-Aid over your catheter insertion site. Keep a Band-Aid on for the next 24 hours and then leave open to air. Some degree of bruising and tenderness is normal around the catheter insertion site. It will take a while for any bruising to completely resolve. Keep your site clean and dry. You need to report the following to your storage solutions architect: Any draining or oozing from the site Any swelling at the site Any increased pain or tenderness at the site Any numbness in your leg where the procedure was done Any signs of infection IMPORTANT! CALL 911 FOR ANY BLEEDING OR SWELLING AT THE PROCEDURE SITE If there is any large amount of bleeding, you or someone else need to apply direct pressure to the site (just like the nurse did in the heart lab after your procedure). It is very important that you hold constant pressure. Do not release the pressure to check if the bleeding has stopped. You then need to be transported to the nearest emergency room. WATCH FOR SIGNS OF INFECTION (Usually appears 36-48 hours after surgery) A temperature above 100.5 Redness or swelling Increased pain Foul odor or drainage If you have any questions, please call your doctor at the number listed on your follow up instructions. Follow all instructions given to you by your doctor Additional Information VACCINATE! IT SAVES LIVES! Members of the community who have not yet received the COVID-19 vaccine and would like to receive it can visit one of [facility] vaccine clinics. There are many vaccine clinic locations within the [facility]. For locations and available times, please visit [email or web address].o hio.gov/. It is important to note that some COVID mobile vaccine clinics are held outdoors and may be canceled in rainy or stormy conditions. To learn more about pediatric vaccinations (ages 5-11), we invite you to visit the [facility] webpage. [email or web address] [email or web address] [email or web address].[email or web address] To learn more about the COVID-19 vaccine, we invite you to visit the CDC website for a list of frequently asked questions.https://www.cdc.gov/co ronavirus/2019-ncov/vaccines/faq .html [facility] Patient Portal Access Instructions: Stay connected with your healthcare team and access your personal medical information anytime with the [facility] Patient Portal. Please follow the directions below to create your [facility] account: 1.Access the email account you provided upon registration to the hospital/physician office.2.Look for an invitation email from [facility].3.Open the email and access the invitation link: Accept Invitation to [facility].4.Fill in the required tristan to create your account. To access your account, visit [email or web address]. Click the blue button labeled Access Patient Portal and then log in with the username and password that you created in the steps above. You will be able to view your test results, lab results, a summary of your visits, upcoming appointments and more. There is also a convenient messaging option where you can send secure messages to your provider. In addition, you will have the ability to download any documents or summaries to your computer and/or send the information securely to a physician. Remember that your healthcare information is confidential, so carefully consider who you will allow to register on the [facility] Patient Portal for access to your information. You can also access the [facility] Patient Portal on the [facility]. Simply click on Patient Portal and then log into your account. If you would like to receive a full copy of your medical records, please contact the [facility] Medical Records Department by calling [phone], Friday through Friday between 8 a.m. and 4:30 p.m. HOW TO SAFELY DISPOSE OF PRESCRIPTION MEDICATIONS Please use one of the following methods to safely dispose of your unused medications. 1.Use a drug disposal kit: the drug disposal pouch allows you to safely discard your old and unused drugs. Ask your nurse to give you one when you are discharged.2.Visit a local take-back location: Many local pharmacies and police departments have programs that collect old and unwanted prescription drugs. Call your local pharmacy or go to http://[employer]/1X2Gt2e to find one close to you.3.Make use of household items: Use cat litter or old coffee grounds to dispose medications if other options are not available. Mix your drugs with these household products, seal them in an airtight container and throw it into the garbage. Call [facility]: [phone] to be sure your drugs can be [...] a CHART COPY. Signatures Patient Education Materials Mitral Valve Stenosis 3- SH MITRAL VALVULOPLASTY 08/11/2018(CUSTOM) Medication Leaflets My discharge plan and instructions have been reviewed and explained to me and I,LASHON TRACEY understand my current condition and have read and understand these discharge instructions. I have received a written copy of the plan/instructions. If I have questions, I am aware that I should contact my doctor. 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 This condition can limit blood flow between the left atrium and the left ventricle. If you have this condition, your health care provider may hear an abnormal sound (heart murmur) while listening to your heart. This condition can range from mild to severe. What are the causes? This condition may be caused by: Rheumatic fever, which is a complication of a strep infection. A buildup of calcium around the valve. This can occur with aging. A problem that is present at (congenital defect). Certain long-term (chronic) diseases. What are the signs or symptoms? Symptoms of this condition include: Shortness of breath. Cough. Noisy breathing (wheezing). Tiredness (fatigue) or decreased energy. Fast or irregular heartbeats (palpitations). Heart murmur. Chest pain. Pain in the arm, neck, jaw, or face. Swollen feet or ankles. Hoarse voice. [place] and purple patches of skin on the face. How is this diagnosed? This condition may be diagnosed based on: A physical exam. Your health care provider will check for a heart murmur by listening to your heart. Tests, including: ?A test that creates ultrasound images of the heart that allow your health care provider to see how the heart valves work while your heart is beating (echocardiogram). ?A test that records the electrical impulses of the heart (electrocardiogram). ?Exercise stress tests. These are tests that evaluate the blood supply to your heart and your heart's response to exercise. ?A test to look at the structure and function of the heart (cardiac catheterization). A thin tube (catheter) is passed through the blood vessels and into the heart. Dye is injected into the blood vessels so the cardiac system can be seen on images that are taken. ?Chest X-rays. How is this treated? Treatment for this condition depends on the severity of the condition. It may include: Medicines to keep the heart rate regular. Medicines to control blood pressure. Blood thinners (anticoagulants) to prevent blood clots. Antibiotic medicines to prevent infections. Defective heart valves are more likely to become infected. A procedure in which a catheter is passed through a blood vessel to the heart and then a tiny balloon is inflated to open the mitral valve (percutaneous balloon valvuloplasty). Open heart surgery to repair or replace the mitral valve. Follow these instructions at home: Medicines Take nppr-tgo-jdpmyyd and prescription medicines only as told by your health care provider. If you were prescribed an antibiotic medicine, take it as told by your health care provider. Do not stop taking the antibiotic even if you start to feel better. If you are taking blood thinners: ?Talk with your health care provider before you take any medicines that contain aspirin or NSAIDs. These medicines increase your risk for dangerous bleeding. ?Take your medicine exactly as told, at the same time every day. ?Avoid activities that could cause injury or bruising. ?Follow instructions about how to prevent falls. ?Wear a medical alert bracelet or carry a card that lists what medicines you take. Lifestyle Do not use any products that contain nicotine or tobacco, such as cigarettes, e-cigarettes, and chewing tobacco. If you need help quitting, ask your health care provider. Achieve and maintain a healthy weight. Ask your health care provider what kinds of exercise are safe for you. If you are taking blood thinners, avoid activities that have a high risk of injury. Ask your health care provider what activities are safe for you. Eating and drinking Limit your intake of caffeine and alcohol. Both of these substances can affect your heart's rate and rhythm. If you drink alcohol: ?Limit how much you use to: ?0 1 drink a day for non women. ?0 2 drinks a day for men. ?Be aware of how much alcohol is in your drink. In the [place] one drink equals one 12 oz bottle of beer (355 mL), one 5 oz glass of wine (148 mL), or one 1 oz glass of hard liquor (44 mL). Eat a heart-healthy diet that includes plenty of fresh fruits and vegetables, whole grains, low-fat (lean) proteins, and low-fat or nonfat dairy products. Consider working with a dietitian to help you make healthy food choices. Limit the amount of salt (sodium) in your diet. Avoid adding salt to foods, and avoid foods that are high in salt, such as: ?Pickles. ?Smoked and cured meats. ?Processed foods. General instructions Before any dental procedures, tell your dentist that you have mitral valve stenosis. You may need antibiotics to prevent a heart infection. If you plan to become , talk with your health care provider first. Keep all follow-up visits as told by your health care provider. This is important. Contact a health care provider if you: Have a fever. Feel more tired than usual when doing physical activity. Have a dry cough. Get help right away if you: Have pain or pressure in your chest that does not go away. Have difficulty breathing. Have palpitations. Have a sudden weight gain. Have swelling in your feet, ankles, or legs. Have trouble staying awake or you faint. Feel confused. These symptoms may represent a serious problem that is an emergency. Do not wait to see if the symptoms will go away. Get medical help right away. Call your local emergency services (911 in the [place] Do not drive yourself to the hospital. Summary Mitral valve stenosis is a narrowing of the mitral valve. This condition can limit blood flow on the left side of your heart. Depending on how severe your condition is, you may be treated with medicines, a procedure, or surgery. Practice heart-healthy habits to manage this condition. These include limiting alcohol, avoiding nicotine and tobacco, and eating a heart-healthy diet that is low in salt (sodium). This information is not intended to replace advice given to you by your health care provider. Make sure you discuss any questions you have with your health care provider. Document Released: 01/01/2011 Document Revised: 06/27/2019 Document Reviewed: 06/27/2019 [employer] Patient Education 2020 [employer] 01/05/2025 07:45:19 3- SH MITRAL VALVULOPLASTY 08/11/2018(CUSTOM) MITRAL VALVULOPLASTY Discharge Instructions DIET INSTRUCTIONS Resume your previous diet as tolerated Drink plenty of fluids for the next 48 hours to help your kidneys flush the dye out of your system ACTIVITIES May go up and down stairs CAREFULLY AFTER [address] FOR 5 DAYS AFTER PROCEDURE No heavy lifting GREATER THAN 10 POUNDS or pushing or straining FOR 5 DAYS Someone must stay with you at home after the procedure FOR 3 DAYS BATHING/SHOWERING May tub bathe in 1 week May shower tomorrow, but cover groin incisions with plastic for 3 days after procedure WOUND CARE You will go home with a Band-Aid over your catheter insertion site. Keep a Band-Aid on for the next 24 hours and then leave open to air. Some degree of bruising and tenderness is normal around the catheter insertion site. It will take a while for any bruising to completely resolve. Keep your site clean and dry. You need to report the following to your storage solutions architect: Any draining or oozing from the site Any swelling at the site Any increased pain or tenderness at the site Any numbness in your leg where the procedure was done Any signs of infection IMPORTANT! CALL 911 FOR ANY BLEEDING OR SWELLING AT THE PROCEDURE SITE If there is any large amount of bleeding, you or someone else need to apply direct pressure to the site (just like the nurse did in the heart lab after your procedure). It is very important that you hold constant pressure. Do not release the pressure to check if the bleeding has stopped. You then need to be transported to the nearest emergency room. WATCH FOR SIGNS OF INFECTION (Usually appears 36-48 hours after surgery) A temperature above 100.5 Redness or swelling Increased pain Foul odor or drainage If you have any questions, please call your doctor at the number listed on your follow up instructions. Follow all instructions given to you by your doctor Follow Up Care 12/09/2024 09:35:48 With:[facility], Address:Unknown When:1-2 days With:MITUL RUTHERFORD Address: [facility] [address] [place] [address]- Business (1) When:1-2 days With:Echocardiogram Address: When:02/02/2025 13:00:00 Comments:This test is scheduled at [facility]. Please have lab work done around the same time, prior to your office visit. With:TESSA PLUNKETT MD Address: [address] [place] [address] [id number] [facility] [place] [address] [phone] When:Within 4 Week(s) Comments:TAVR follow-up. Echo and labs prior to office visit as scheduled [facility] 01-04-2025 Note Exam Date Time Procedure Performing Provider Status 01/04/25 7:36 PM Echocardiogram, Adult - CV NICHELLE SHEARER MD; Auth (Verified) [id number] Evaluation + Plan noteExtracted from: Title:History and Physical Author:ROSHAN CASE APRN-[employer] Date:01/04/25 1. Mitral valve stenosis Patient continues to complain of shortness of breath and fatigue over the last several months. Echocardiogram showed severe rheumatic mitral stenosis with mean gradient greater than 10 mmHg. Discussed percutaneous mitral valvuloplasty. Reviewed risk and benefit of procedure at length and answered all questions. Will proceed as scheduled with percutaneous mitral commissurotomy. Reviewed post op course and plan for discharge back to nursing facility tomorrow if no procedure/overnight events. 2. History of CVA (cerebrovascular accident) Loop recorder implanted 06/2024. No evidence of afib at this time. Patient currently on warfarin due to significant mitral stenosis. Will likely plan to continue given recurrent CVAs. Orders: ceFAZolin(Kefzol), 2 gram(s)= 20 mL, IV Push (INT), PREOP pharm Consult to Anesthesia, 01/04/25 5:00:00 EDT, surgery pending Follow Clinical Pathway, 01/04/25 5:00:00 EDT, Constant order, cardiothoracic surgery, Use Open Heart Surgery Pathway Incentive Spirometer, 01/04/25 5:00:00 EDT, [id number] Notify Provider, 01/04/25 5:00:00 EDT, TESSA PLUNKETT MD, Constant order, Flight Engineer Helicopter the morning of surgery (non-attending status) Notify Provider, 01/04/25 5:00:00 EDT, TESSA PLUNKETT MD, Constant order, Primary Care Physician the morning of surgery (non-attending status) NPO, 01/04/25 5:00:00 EDT, Constant Order, After midnight for Cardiothoracic surgery Sign Consent, 01/04/25 5:00:00 EDT, Once, Blood Transfusion Consent Sign Consent, 01/04/25 5:00:00 EDT, Once, balloon mitral valvuloplasty with possible pericardiocentesis Skin Prep/Scrub, 01/04/25 6:00:00 EDT, Once, Chlorhexidine 2% Site Specific Wipes to chest, neck, arms and legs and Nasal Swab mailroom personnel to the OR. Skin Prep/Scrub, 01/04/25 4:00:00 EDT, Once, Once, CHG bath, linen change and change ECG electrodes to patient's back the morning of surgery. Type and Screen, 01/04/25 5:00:00 EDT, URGENT (collect within 2 hrs), Blood, Once, Preferred Lab: [facility], Stop date 01/04/25 5:00:00 EDT Future Appointments Appointment Date:01/07/2025 10:00:00 AM Scheduled Provider: Location:[facility] Appointment Type:CV Remote Procedure HM Appointment Date:01/10/2025 09:00:00 AM Scheduled Provider:NATALI FLYNN PA-C Location:[facility] Appointment Type:CV OV Appointment Date:02/02/2025 01:00:00 PM Scheduled Provider: Location:[facility] Appointment Type:Echo - Echocardiogram Adult Future Scheduled Tests Laboratory* Basic Metabolic Panel 02/01/25 * Basic Metabolic Panel 12/10/24 * Complete Blood Count 02/01/25 * Complete Blood Count 12/10/24 * Prothrombin Time - Panel 12/10/24 * N-Terminal proBNP 12/10/24 [facility] 06-10-2025 Note* Exam Date Time Procedure Performing Provider Status 01/04/25 12:00 PM Transesophageal Echocardiogram - CV MARCY ROSA MD; Auth (Verified) [id number] Note* Exam Date Time Procedure Performing Provider Status 01/04/25 9:33 AM Electrocardiogram - EKG - CV DALE SOLIZ MD; Auth (Verified) ECG Final Report SINUS RHYTHM PROLONGED OR INTERVAL NONSPECIFIC INTRAVENTRICULAR CONDUCTION DELAY Electronic Signature: DALE SOLIZ MD 01/05/2025 14:41:42 [facility] [id number] History and physical note Date of Service 01/04/2025 Chief Complaint dyspnea on exertion, fatigue History of Present Illness This is an 84-year-old female who presents through the ambulatory cardiac unit for a scheduled mitral valvuloplasty. 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 She currently has a loop recorder implanted to monitor for atrial fibrillation given multiple strokes. Patient currently complaints of shortness of breath and fatigue which have been stable since last office visit. Denies chest pain, pressure, lightheadedness, dizziness or syncope. Recent heart cath shows mid-moderate nonobstructive CAD. Heart cath 12/01/2024 IMPRESSIONS: 1. The study demonstrates mild coronary artery disease. 2. Known rheumatic MS. RECOMMENDATIONS: Outpatient evaluation for [facility]. Echocardiogram 10/20/2024 Summary: 1. Left ventricle: The cavity size is normal. Wall thickness is mildly increased. Systolic functionis normal. The estimated ejection fraction is 60-65%. Wall motion is normal; there are no regional wall motion abnormalities. Unable to assess diastolic function. 2. Mitral valve: Leaflet mobility is moderately restricted. Diastolic leaflet doming is present. 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 The mean diastolic gradient is 9 mm Hg. The valve area by pressure half-time is 1.5 cm . The valve area (LVOT continuity) is 0.9 cm . 3. Left atrium: The atrium is moderately dilated. 4. Right ventricle: The RV systolic pressure by Doppler is 49 mm Hg. 5. Pulmonic valve: There is mild, 1+ regurgitation. 6. Tricuspid valve: There is mild, 1+ regurgitation. 7. Right atrium: The atrium is mildly dilated. The estimated right atrial pressure is 15 mm Hg. Review of Systems Constitutional: denies fever, chills, weight change, +fatigue HEENT: denies vision changes, nasal drainage, mouth/tongue/tooth pain _ Respiratory: denies cough, sputum or wheezes +SOB, dyspnea on exertion Cardiovascular: denies chest pain, pressure or palpitations, orthopnea, syncope, lightheadedness Gastrointestinal: denies abdominal pain, bloating, nausea, vomiting, or diarrhea Genitourinary: denies urinary changes, dysuria, hematuria or urinary frequency Musculoskeletal: denies increased weakness or change in mobility, limited mobility at baseline Skin: denies rashes, wounds, skin changes Neurological: denies altered mental status, numbness, tingling Psychiatric: denies depression, anxiety, or suicidal thoughts Hematologic: denies bleeding, dark stools, or bruising Physical Exam Vitals and Measurements T: 36.2 C (Oral) HR: 69 RR: 16 BP: 163/92 SpO2: 97% HT: 156.2 cm WT: 71.0 kg Weight Dosing Weight: 71 kg (01/04/25) General Appearance: No acute distress, appears well nourished and well groomed Head: normocephalic, atraumatic EENT: mucous membranes moist, PERRLA Neck: trachea midline, no JVD noted, no carotid bruit Cardiac: RRR, S1 WNL, no significant gallop/rub noted, +diastolic murmur Lungs: CTAB, respirations easy and unlabored on room air Abdomen: flat, soft, nontender, bowel sounds present x4 Extremities: DALTON x4, PPPx4, no edema noted Neurological: A&O x4, CN intact Skin: warm, dry, no rashes or wounds noted Psychiatric: calm, cooperative, normal affect Lab Results 01/04 06:08 Protime: 12.9 PT International Ratio: 1.1 Assessment/Plan 1. Mitral valve stenosis Patient continues to complain of shortness of breath and fatigue over the last several months. Echocardiogram showed severe rheumatic mitral stenosis with mean gradient greater than 10 mmHg. Discussed percutaneous mitral valvuloplasty. Reviewed risk and benefit of procedure at length and answered all questions. Will proceed as scheduled with percutaneous mitral commissurotomy. Reviewed post op course and plan for discharge back to nursing facility tomorrow if no procedure/overnight events. 2. History of CVA (cerebrovascular accident) Loop recorder implanted 06/2024. No evidence of afib at this time. Patient currently on warfarin due to significant mitral stenosis. Will likely plan to continue given recurrent CVAs. Orders: ceFAZolin(Kefzol), 2 gram(s)= 20 mL, IV Push (INT), PREOP pharm Consult to Anesthesia, 01/04/25 5:00:00 EDT, surgery pending Follow Clinical Pathway, 01/04/25 5:00:00 EDT, Constant order, cardiothoracic surgery, Use Open Heart Surgery Pathway Incentive Spirometer, 01/04/25 5:00:00 EDT, [id number] Notify Provider, 01/04/25 5:00:00 EDT, TESSA PLUNKETT MD, Constant order, Flight [employer] the morning of surgery (non-attending status) Notify Provider, 01/04/25 5:00:00 EDT, TESSA PLUNKETT MD, Constant order, Primary Care Physician the morning of surgery (non-attending status) NPO, 01/04/25 5:00:00 EDT, Constant Order, After midnight for Cardiothoracic surgery Sign Consent, 01/04/25 5:00:00 EDT, Once, Blood Transfusion Consent Sign Consent, 01/04/25 5:00:00 EDT, Once, balloon mitral valvuloplasty with possible pericardiocentesis Skin Prep/Scrub, 01/04/25 6:00:00 EDT, Once, Chlorhexidine 2% Site Specific Wipes to chest, neck, arms and legs and Nasal Swab mailroom personnel to the OR. Skin Prep/Scrub, 01/04/25 4:00:00 EDT, Once, Once, CHG bath, linen change and change ECG electrodesto patient's back the morning of surgery. Type and Screen, 01/04/25 5:00:00 EDT, URGENT (collect within 2 hrs), Blood, Once, Preferred Lab: [facility], Stop date 01/04/25 5:00:00 EDT Problem List/Past Medical History Ongoing Atrial fibrillation Basal cell carcinoma Cryptogenic stroke CVA (cerebrovascular accident) H/O: CVA History of CVA (cerebrovascular accident) Mitral valve stenosis TIA - transient ischemic attack Valvular heart disease Procedure/Surgical History Echocardiogram: 10/20/24 Implantable loop recorder present: 07/08/24 Knee arthroplasty: 02/12/22 Knee replacement Arthroscopy of knee joint Carpal tunnel release Tonsillectomy Medications Home Medications (4) Active Magnesium 250 mg tablet 500 mg = 2 tab(s), Oral, qDay Multivitamin 1 tab(s), Oral, Daily Vitamin C 500 mg oral tablet 500 mg = 1 tab(s), Oral, qDay warfarin 5 mg oral tablet 5 mg = 1 tab(s), Oral, Daily Allergies NKA Social History Alcohol Use: Never., 03/13/2021 Home/Environment Domestic Concerns: None. Living situation: Independent Living Facility., 01/29/2022 Nutrition/Health Type of diet: Regular. Appetite Excellent. Eating Difficulties None., 02/12/2022 Sexual Self described orientation: Straight or heterosexual. Gender Identity: Identifies as female., 12/01/2024 Substance Abuse Use: Never., 01/29/2022 Tobacco Nicotine Use: Never (less than 100 in lifetime)., 10/07/2024 Family History Stroke: Mother and Sister. Health Status Family Member(s) Immunizations No qualifying data available. Code Status No qualifying data available. Digitally Signed by DIANNE CASE on 01/04/2025 07:24 AM [facility] [id number] Anesthesiology Consult note Patient: LASHON TRACEY Age: 84 years Sex: Female : 1940 Associated Diagnoses: None Author: ASAD EDWARDS DO Preoperative Information Greater than 6 hours Anesthesia history Patient's history: negative. Family's history: negative. Review of Systems Ear/Nose/Mouth/Throat: Negative except as documented in history of present illness. Respiratory: Negative except as documented in history of present illness. Cardiovascular: Negative except as documented in history of present illness. Gastrointestinal: Negative except as documented in history of present illness. Genitourinary: Negative except as documented in history of present illness. Endocrine: Negative except as documented in history of present illness. Musculoskeletal: Negative except as documented in history of present illness. Integumentary: Negative except as documented in history of present illness. Neurologic: Negative except as documented in history of present illness. Health Status Allergies: Allergic Reactions (Selected) NKA, Allergies (1) ActiveSeverityReaction NKANone Documented Current medications: (Selected) Inpatient Medications Ordered Kefzol: Start: 01/04/25 6:00:00 EDT, Dose= 2 gram(s), = 20 mL, IV Push (INT), PREOP pharm, Routine,Rate: 240 mL/hr, Infuse over: 5 minute(s), 20 mL, 01/04/25 6:00:00 EDT Prescriptions Prescribed warfarin 5 mg oral tablet: Dose : 5 mg = 1 tab(s), Oral, Daily, # 30 tab(s), 0 Refill(s), Pharmacy:[id number], 155, cm, 01/01/24 10:34:00 EDT, Height, kg, 01/01/24 10:34:00 EDT, Dosing Weight Documented Medications Documented Magnesium 250 mg tablet: Dose : 500 mg = 2 tab(s), Oral, qDay, # 14 tab(s), 0 Refill(s) Multivitamin: Dose = 1 tab(s), Oral, Daily, 0 Refill(s) Vitamin C 500 mg oral tablet: Dose : 500 mg = 1 tab(s), Oral, qDay, # 30 tab(s), 0 Refill(s), Medications (1) Active Scheduled: (1) ceFAZolin syringe 2 gram(s) 20 mL, IV Push (INT), PREOP pharm Continuous: (0) PRN: (0) Problem list: Medical Atrial fibrillation / SNOMED CT 55349209 / Confirmed Basal cell carcinoma / SNOMED CT 7048773 / Confirmed CVA (cerebrovascular accident) / SNOMED CT 960985092 / Confirmed Cryptogenic stroke / SNOMED CT 6197642093 / Confirmed H/O: CVA / SNOMED CT 132758031 / Confirmed Valvular heart disease / SNOMED CT 1773857 / Confirmed Mitral valve stenosis / SNOMED CT 392917227 / Confirmed TIA - transient ischemic attack / SNOMED CT 0770015038 / Confirmed, Active Problems (9) Arthritis Atrial fibrillation Basal cell carcinoma Cryptogenic stroke CVA (cerebrovascular accident) H/O: CVA Mitral valve stenosis TIA - transient ischemic attack Valvular heart disease Histories Past Medical History: No active or resolved past medical history items have been selected or recorded. Family History: Stroke Mother Sister Procedure history: Echocardiogram ([id number]) on 10/20/2024 at 84 Years. Comments: 11/12/2024 16:03 K[facility] - Yana Tim LPN 10/20/2024 Summary: 1. Left ventricle: The cavity size is normal. Wall thickness is mildly increased. Systolic functionis normal. The estimated ejection fraction is 60-65%. Wall motion is normal; there are no regional wall motion abnormalities. Unable to assess diastolic function. 2. Mitral valve: Leaflet mobility is moderately restricted. Diastolic leaflet doming is present. 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 The mean diastolic gradient is 9 mm Hg. The valve area by pressure half-time is 1.5 cm . The valve area (LVOT continuity) is 0.9 cm . 3. Left atrium: The atrium is moderately dilated. 4. Right ventricle: The RV systolic pressure by Doppler is 49 mm Hg. 5. Pulmonic valve: There is mild, 1+ regurgitation. 6. Tricuspid valve: There is mild, 1+ regurgitation. 7. Right atrium: The atrium is mildly dilated. The estimated right atrial pressure is 15 mm Hg. 03/13/2021 9:47 EDT - Eden Ravi MA (ABR-OE) IMPRESSION : The estimated EF is 60%. severe mitral valve stenosis. Unable to assess diastolic dysfunction. The left atrium is mildly enlarged. Implantable loop recorder present ([id number]) on 07/08/2024 at 84 Years. Comments: 07/08/2024 7:57 Tahmina Don LPN [employer] LINQ II SN# [id number] Knee arthroplasty ([id number]) on 02/12/2022 at 82 Years. Arthroscopy of knee joint ([id number]). Comments: 01/29/2022 10:08 Isabel Jewell RN bilateral Carpal tunnel release ([id number]). Comments: 01/29/2022 10:08 Isabel Jewell RN right Tonsillectomy ([id number]). Knee replacement ([id number]). Comments: 07/08/2024 5:55 Royce Andersen RN left knee Social History: Social & Psychosocial Habits Alcohol 01/04/2025 Use: Never Substance Abuse 01/04/2025 Use: Never Tobacco 01/04/2025 Tobacco Use: Never (less than 100 in l Home/Environment 01/04/2025 Domestic Concerns None Living situation: Independent Living Facili Nutrition/Health 01/04/2025 Type of diet: Regular Appetite Excellent Eating Difficulties None Sexual 01/04/2025 Self described orientation: Straight or heterosexual What is your current gender identity? (Check all that apply) Identifies as female Physical Examination General: Alert and oriented. Airway: Normal temporomandibular joint mobility, Normal mouth, Normal throat, Normal neck range of motion, Trachea midline. Mallampati classification: II (soft palate, fauces, uvula visible). Head: Normocephalic. Dentition Evaluation: Intact, Own teeth, Denies loose/chipped teeth. Neck: Supple. Respiratory: Lungs are clear to auscultation, Respirations are non-labored. Cardiovascular: Normal rate, Regular rhythm. Heart Sounds: Normal, Murmur. Gastrointestinal: Soft. Musculoskeletal Normal range of motion. Integumentary: Intact, Warm, Dry. Neurologic: Alert, Oriented. Review / Management Results review: Lab results 01/04/2025 6:25 EDT chlorhexidine topical 15 mL mL 01/04/2025 6:17 EDT SN - Preop - CTm - Pt in HL SD Room 01/04/2025 5:40 SN - Preop - CTm - HL Pt Ready for Procedure 01/04/2025 6:17 01/04/2025 6:15 EDT Individuals Taught Patient, Son Learning Readiness Willing to learn Barriers to Learning None evident Preferred Spoken Language Sammarinese 01/04/2025 6:10 EDT Height 156.2 cm Height in inches 61.5 inch(es) Admission Weight 71.0 kg Weight Lbs 156.2 lb Weight Method Actual [place] Body Weight 48.94 kg Type of Scale Used Bed scale Admission Body Mass Index 29.1 m2 Temperature Oral 36.2 DegC Peripheral Pulse Rate 69 bpm Respiratory Rate 16 br/min Systolic Blood Pressure Non-Invasive 163 mmHg HI Diastolic Blood Pressure Non-Invasive 92 mmHg HI Primary Pain Intensity 0 Pain Scale Type 0-10 Pain scale Heart Sounds ICU S1S2 Heart Rhythm Regular Dorsalis Pedis Pulse, Left 1+ Thready Dorsalis Pedis Pulse, Right 1+ Thready Radial Pulse, Left 2+ Normal Radial Pulse, Right 2+ Normal Respiratory Symptoms Shortness of breath Respirations Unlabored Respiratory Pattern Regular Breath Sounds Auscultated Anterior only All Lobes Breath Sounds Clear Cough None Oxygen Therapy Room air Oxygen Saturation 97 % Abdomen Description Non-distended Abdomen Palpation Non-Tender Bowel Continence Continent Urinary Elimination Voiding, no difficulties Skin Description [place], Normal for ethnicity Skin Temperature Warm Skin Integrity Intact Neurological Symptoms Weakness Extremity Movement Unequal Characteristics of Speech Clear Level of Consciousness Alert HELENA Yes Strength All Extremities Weak Tone All Extremities Normal Sensation All Extremities Intact Affect/Behavior Appropriate, Calm, Cooperative Orientation Oriented x 4 Orientation Assessment Oriented x 4 Mobility Assistance Level Moderate assistance Activity Status ADL Awake Standard Safety ID band on, Call device within reach, Bed in low position, Wheels locked, Upper/Half-Length side-rails up, Visitor at bedside High Risk Safety Identified as high risk, Fall ID band on Demonstrates Correct Call Light Use Yes 01/04/2025 6:08 EDT Antecubital Right 01/04/2025 20 gauge Peripheral IV Activity: Insert new site Peripheral IV Dressing Activity: Applied, Transparent dressing 01/04/2025 6:07 EDT Violence Risk Confused No Violence Risk Irritable No Violence Risk Boisterous No Violence Risk Verbal Threats No Violence Risk Physical Threats No Violence Risk Attacking Objects No Violence Risk Predictor Score 0 Violence Risk Intervention None Violence Risk Current Interventions None Allergies No Consent Form Signed Yes Patient Dressed In Hospital gown CHG Preoperative Wash/Wipe Day of procedure, Site specific wipe Preop Nasal Swab Povidone-Iodine History & Physical Update On Chart Yes History & Physical On Chart Yes Obstructive Sleep Apnea Assess Completed Yes Belongings At Bedside Pants, Shirt, Shoes, Socks, Undergarments NPO Status Maintained Patient ID Band on and Verified Yes Blood Consent Signed Yes Last Fluid Intake 01/03/2025 22:30 Last Food Intake 01/03/2025 22:30 01/04/2025 6:04 EDT Designated Person #1 We May Share PHI ZORA CID [phone] Designated Person #1 Relationship Daughter Designated Person #2 We May Share PHI Arnold [phone] Designated Person #2 Relationship Son Additional Designated Person Share PHI Evelinne [phone] Privacy Restrictions Requested None Status N/A Sensory Deficits None Sleep Apnea Snore No Sleep Apnea Tired Yes Sleep Apnea Obstruction No Sleep Apnea Pressure No Sleep Apnea BMI No Sleep Apnea Age Yes Sleep Apnea Neck No Sleep Apnea Gender No Sleep Apnea Score 2 Diagnosed With Sleep Apnea No Advanced Directives Yes Advance Directive Type [place] Durable Power of Immigration Attorney for [place], [place] Declaration (Living Will) Advance Directive Location Family instructed to bring in copy Infectious Disease Symptoms Patient states no symptoms Infectious Disease Recent Exposure No Alcohol and Drug Use No Employee of Institutional Living No Health Care Employee No History of Exposure to TB No History of Positive Chest X-Ray for TB No History of Positive TB Skin Test No Homeless No Known Immunosuppression No Recent Immigrant No Resident of Institutional Living No Bloody Sputum No Fatigue No Fever No Loss of Appetite No Night Sweats No Persistent Cough > 3 Weeks No Weight Loss No Barriers to Learning None evident Teaching Method Printed materials, Teach-back Preferred Spoken Language Sammarinese Preferred Written Language Sammarinese Teaching Evaluation Verbalizes/Nonverbally indicates understanding Safety Brochure Information Reviewed Yes [facility] Video Viewed Patient refused Patient's Current Physicians Patient's Current Physicians History of Malignant Hyperthermia No Discharge To, Anticipated Skilled facility Prev Test Positive/Diagnosis w/COVID-19 No Current Quarantine/Isolated any Illness No Any Contact with Sick Animals/Birds No Traveled Anywhere in Last 30 Days No Lost Weight Unintentionally Recently No Eat Poorly Due to Decreased Appetite No Total MST Score 0 N/A Personal Devices, Patient Valuables Glasses Anesthesia/Transfusions Prior anesthesia Admission Note-Nursing Same Day Patient History . Assessment and Plan [place] [employer] Anesthesi[employer] (ASA) physical status classification: Class IV. Anesthetic Preoperative Plan Premedication: intravenous. Anesthetic technique: General. Induction: intravenously. Maintenance airway: Oral endotracheal tube. Special techniques: Warming device. Special Monitoring: Arterial line, Central venous catheter, Continuous cardiac output, Continuous transesophageal echocardiogram. Postoperative pain management: Per surgeon. Risks discussed: nausea, vomiting, headache, sore throat, dental injury, hypotension, allergic reaction, serious complications. Informed consent: signed by patient. Beta Igor: Beta Igro Taken Within 24 Hrs: Yes. Digitally Signed by ASAD EDWARDS DO on 01/04/2025 06:26 AM [id number] Cardiothoracic surgery Consult note Date of Service 12/01/2024 Reason for Consultation Mitral valve stenosis, valvuloplasty Referring Physician Dr. Deng History of Present Illness This is a split shared visit with Dr. 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 She has been having shortness of breath and bilateral leg edema. 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 She was found to have atrial fibrillation about 2 years ago with her second stroke and was started on Coumadin at that time. Currently has a loop recorder and has been following with cardiology. Heart catheterizationtoday reporting mild to moderate CAD recommending medical treatment, official report is pending. Terrie being consulted to evaluate the patient for mitral valve stenosis with plans for valvuloplasty from heart team approach. Patient has poor functional status, ambulates about 350 feet at the intermediate from home around physical therapy room twice a day and does become short of breath. STS risk calculation Operative Mortality 5.4% Morbidity & Mortality 14.6% Stroke 3.22% Renal Failure 1.88% Reoperation 2.48% Prolonged Ventilation 10.3% Deep Sternal Wound Infection 0.066% Long Hospital Stay (>14 days) 8.18% Short Hospital Stay (<6 days)* 20.7% Review of Systems 10 point review of systems obtained, pertinent positives noted in the HPI above Physical Exam Vitals and Measurements T: 36.4 C (Oral) HR: 77 RR: 16 BP: 108/72 SpO2: 97% HT: 156.2 cm WT: 71.2 kg Weight Dosing Weight: 71.2 kg (12/01/24) planGeneral Appearance female sitting up in wheelchair ready to be discharged Mentation she is alert, oriented, answers questions appropriately HEENT head is atraumatic, normocephalic, has her own teeth that are in fair condition, no carotid bruit audible, trachea midline, hearing intact Heart S1-S2 regular, 1 to 2+/6 murmur audible at the apex Lungs are clear bilaterally, respirations are easy at rest Abdomen rounded soft nontender moderate in size, bowel sounds present Extremities are perfused, fingers are bilaterally cool presently. Left arm frozen shoulder can onlymove her forearm and her wrist and unable to lift from the shoulder, has moderate strength hand grasp. Right arm she can move without difficulty. Right leg strong push, left leg slightly weak Skin no rashes noted skin is intact Lab Results 12/01 08:22 Protime: 13.6 PT International Ratio: 1.2 Glucose Level: 87 Sodium Level: 144 Potassium Level: 3.8 BUN: 19.0 Creatinine Lvl (s): 0.81 Assessment/Plan 1. Mitral valve stenosis 2. CVA (cerebrovascular accident) 3. Atrial fibrillation 4. Arthritis 5. Basal cell carcinoma 6. Mild CAD Plan: Surgical evaluation as per Dr. Cline to follow Problem List/Past Medical History Ongoing Atrial fibrillation Basal cell carcinoma Cryptogenic stroke CVA (cerebrovascular accident) H/O: CVA Mitral valve stenosis TIA - transient ischemic attack Valvular heart disease Procedure/Surgical History Echocardiogram: 10/20/24 Implantable loop recorder present: 07/08/24 Knee arthroplasty: 02/12/22 Knee replacement Arthroscopy of knee joint Carpal tunnel release Tonsillectomy Medications Inpatient NO METFORMIN (Glucophage) X 48hrs-patient has received contrast, 1 EA, Miscellaneous, Unscheduled Home Magnesium 250 mg tablet, 500 mg= 2 tab(s), Oral, qDay Multivitamin, 1 tab(s), Oral, Daily Vitamin C 500 mg oral tablet, 500 mg= 1 tab(s), Oral, qDay warfarin 5 mg oral tablet, 5 mg= 1 tab(s), Oral, Daily Allergies NKA Social History Alcohol Use: Never., 03/13/2021 Home/Environment Domestic Concerns: None. Living situation: Independent Living Facility., 01/29/2022 Nutrition/Health Type of diet: Regular. Appetite Excellent. Eating Difficulties None., 02/12/2022 Sexual Self described orientation: Straight or heterosexual. Gender Identity: Identifies as female., 12/01/2024 Substance Abuse Use: Never., 01/29/2022 Tobacco Nicotine Use: Never (less than 100 in lifetime)., 10/07/2024 Family History Stroke: Mother and Sister. Health Status Family Member(s) Immunizations No qualifying data available. Digitally Signed by KATHRIN BURROUGHS on 12/01/2024 02:57 PM Digitally Signed by SETH LOUIS MD on 12/01/2024 05:12 PM [id number] Hospital Discharge instructions Patient Education 12/01/2024 13:39:23 3- Heart Cath/PCI radial (04/2018) (CUSTOM) HEART CATHETERIZATION/PCI (radial) Discharge Instructions DIET Drink plenty of fluids for the next 48 hours to help your kidneys flush the heart cath dye out of your system ACTIVITY For the next 48 hours: Do not deep bend the wrist Do not lift, push, or pull anything over 5 pounds for 5 days Do not use the hand/arm to support your weight when rising from a chair or bed Do not drive For the next 7 days: Do not submerse your procedure site in water Do not swim, wash dishes, or take tub baths You may write, eat, type, and shower WOUND CARE Keep armboard and dressing on for 24 hours; then wash, dry, and apply Band-Aid Keep a Band-Aid on your procedure site for the next 3-4 days Change the Band-Aid daily or if it gets wet/soiled AFTER YOU GO HOME, CALL YOUR DOCTOR FOR: Any increase in bruising or tenderness from the procedure site Any redness, pus, or other signs of infection at the site A temperature above 100.5 Severe pain at the site DIAL 911 AND RETURN TO THE HOSPITAL FOR: Any bleeding from the procedure site. The site may be bruised or tender, but it should not be bleeding at any time. If your site begins to bleed, hold firm pressure on it and dial 911 to return to the hospital Any increase in swelling at the procedure site. An increase in swelling could mean the area is bleeding under the skin. Hold firm pressure to the site and dial 911 to return to the hospital Document Released: 07/14/2006 Document Revised: 06/30/2013 Document Reviewed: 07/15/2014 ExitCare Patient Information 2015 Lessons Only. This information is not intended to replace advicegiven to you by your health care provider. Make sure you discuss any questions you have with your health care provider. 12/01/2024 13:38:45 Moderate Conscious Sedation, Adult, Care After Moderate Conscious Sedation, Adult, Care After These instructions provide you with information about caring for yourself after your procedure. Your health care provider may also give you more specific instructions. Your treatment has been plannedaccording to current medical practices, but problems sometimes occur. Call your health care provider if you have any problems or questions after your procedure. What can I expect after the procedure? After your procedure, it is common: To feel sleepy for several hours. To feel clumsy and have poor balance for several hours. To have poor judgment for several hours. To vomit if you eat too soon. Follow these instructions at home: For at least 24 hours after the procedure: Do not: ?Participate in activities where you could fall or become injured. ?Drive. ?Use heavy machinery. ?Drink alcohol. ?Take sleeping pills or medicines that cause drowsiness. ?Make important decisions or sign legal documents. ?Take care of children on your own. Rest. Eating and drinking Follow the diet recommended by your health care provider. If you vomit: ?Drink water, juice, or soup when you can drink without vomiting. ?Make sure you have little or no nausea before eating solid foods. General instructions Have a responsible adult stay with you until you are awake and alert. Take lavl-njz-svambxz and prescription medicines only as told by your health care provider. If you smoke, do not smoke without supervision. Keep all follow-up visits as told by your health care provider. This is important. Contact a health care provider if: You keep feeling nauseous or you keep vomiting. You feel light-headed. You develop a rash. You have a fever. Get help right away if: You have trouble breathing. This information is not intended to replace advice given to you by your health care provider. Make sure you discuss any questions you have with your health care provider. Document Released: 05/04/2014 Document Revised: 06/26/2018 Document Reviewed: 11/02/2016 [employer] Patient Education 2020 Gamar. Follow Up Care 11/18/2024 16:27:10 With:TESSA PLUNKETT MD Address: [address] [facility] [place] [address]- [phone] When:01/06/2025 09:30:00 Comments:THIS APPOINTMENT WILL BE WITH SRIKANTH ZAYAS [facility] 05-07-2025 Cardiothoracic surgery Consult note Date of Service 12/01/2024 Reason for Consultation Mitral valve stenosis, valvuloplasty Referring Physician Dr. Deng History of Present Illness This is a split shared visit with Dr. 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 She has been having shortness of breath and bilateral leg edema. 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 She was found to have atrial fibrillation about 2 years ago with her second stroke and was started on Coumadin at that time. Currently has a loop recorder and has been following with cardiology. Heart catheterizationtoday reporting mild to moderate CAD recommending medical treatment, official report is pending. Jaye being consulted to evaluate the patient for mitral valve stenosis with plans for valvuloplasty from heart team approach. Patient has poor functional status, ambulates about 350 feet at the intermediate from home around physical therapy room twice a day and does become short of breath. STS risk calculation Operative Mortality 5.4% Morbidity & Mortality 14.6% Stroke 3.22% Renal Failure 1.88% Reoperation 2.48% Prolonged Ventilation 10.3% Deep Sternal Wound Infection 0.066% Long Hospital Stay (>14 days) 8.18% Short Hospital Stay (<6 days)* 20.7% Review of Systems 10 point review of systems obtained, pertinent positives noted in the HPI above Physical Exam Vitals and Measurements T: 36.4 C (Oral) HR: 77 RR: 16 BP: 108/72 SpO2: 97% HT: 156.2 cm WT: 71.2 kg Weight Dosing Weight: 71.2 kg (12/01/24) planGeneral Appearance female sitting up in wheelchair ready to be discharged Mentation she is alert, oriented, answers questions appropriately HEENT head is atraumatic, normocephalic, has her own teeth that are in fair condition, no carotid bruit audible, trachea midline, hearing intact Heart S1-S2 regular, 1 to 2+/6 murmur audible at the apex Lungs are clear bilaterally, respirations are easy at rest Abdomen rounded soft nontender moderate in size, bowel sounds present Extremities are perfused, fingers are bilaterally cool presently. Left arm frozen shoulder can onlymove her forearm and her wrist and unable to lift from the shoulder, has moderate strength hand grasp. Right arm she can move without difficulty. Right leg strong push, left leg slightly weak Skin no rashes noted skin is intact Lab Results 12/01 08:22 Protime: 13.6 PT International Ratio: 1.2 Glucose Level: 87 Sodium Level: 144 Potassium Level: 3.8 BUN: 19.0 Creatinine Lvl (s): 0.81 Assessment/Plan 1. Mitral valve stenosis 2. CVA (cerebrovascular accident) 3. Atrial fibrillation 4. Arthritis 5. Basal cell carcinoma 6. Mild CAD Plan: Surgical evaluation as per Dr. Cline to follow Problem List/Past Medical History Ongoing Atrial fibrillation Basal cell carcinoma Cryptogenic stroke CVA (cerebrovascular accident) H/O: CVA Mitral valve stenosis TIA - transient ischemic attack Valvular heart disease Procedure/Surgical History Echocardiogram: 10/20/24 Implantable loop recorder present: 07/08/24 Knee arthroplasty: 02/12/22 Knee replacement Arthroscopy of knee joint Carpal tunnel release Tonsillectomy Medications Inpatient NO METFORMIN (Glucophage) X 48hrs-patient has received contrast, 1 EA, Miscellaneous, Unscheduled Home Magnesium 250 mg tablet, 500 mg= 2 tab(s), Oral, qDay Multivitamin, 1 tab(s), Oral, Daily Vitamin C 500 mg oral tablet, 500 mg= 1 tab(s), Oral, qDay warfarin 5 mg oral tablet, 5 mg= 1 tab(s), Oral, Daily Allergies NKA Social History Alcohol Use: Never., 03/13/2021 Home/Environment Domestic Concerns: None. Living situation: Independent Living Facility., 01/29/2022 Nutrition/Health Type of diet: Regular. Appetite Excellent. Eating Difficulties None., 02/12/2022 Sexual Self described orientation: Straight or heterosexual. Gender Identity: Identifies as female., 12/01/2024 Substance Abuse Use: Never., 01/29/2022 Tobacco Nicotine Use: Never (less than 100 in lifetime)., 10/07/2024 Family History Stroke: Mother and Sister. Health Status Family Member(s) Immunizations No qualifying data available. Digitally Signed by KATHRIN BURROUGHS on 12/01/2024 02:57 PM Digitally Signed by SETH LOUIS MD on 12/01/2024 05:12 PM [id number] Summary of episode note Discharge Instructions Thank you for allowing [facility] to assist you with your healthcare needs. The following is importantdischarge information regarding your hospital visit. Your Care Team MITUL RUTHERFORD MD What to do next Scheduled Follow-Up Appointments Appointment Type When With Where Contact Information StatusCV OV 01/06/2025 09:30 AM EDT [facility] Confirmed CV Remote Procedure HM 01/07/2025 10:00 AM EDT [facility] Confirmed Follow Up Appointments Follow Up with TESSA PLUNKETT MD When:01/06/2025 09:30 AM EDT Where:[address] [facility] [place] [address]- [phone] Additional Information: THIS APPOINTMENT WILL BE WITH SRIKANTH ZAYAS Allergies NKA Medications Please ask your primary doctor or pharmacist before taking any other medication not listed, including over the counter drugs, herbal medications, vitamins and or supplements as they may interact withyour home medications. What How Much When Instructions Last Dose Unchanged ascorbic acid (Vitamin C 500 mg oral tablet) 1 tab(s) by mouth Once a day Unchanged magnesium oxide (Magnesium 250 mg tablet) 2 tab(s) by mouth Once a day Duration: 7 Days Unchanged multivitamin (Multivitamin) 1 tab(s) by mouth Every day Unchanged warfarin (warfarin 5 mg oral tablet) 1 tab(s) by mouth Every day Please take this list to your next doctor s visit. Bring all medications you take, including over the counter medications, herbals and other supplements with you to your doctor s visit. Patients and families are reminded to discard old lists and to update any records with all medication providers or retail pharmacies. Education Materials HEART CATHETERIZATION/PCI (radial) Discharge Instructions DIET Drink plenty of fluids for the next 48 hours to help your kidneys flush the heart cath dye out of your system ACTIVITY For the next 48 hours: Do not deep bend the wrist Do not lift, push, or pull anything over 5 pounds for 5 days Do not use the hand/arm to support your weight when rising from a chair or bed Do not drive For the next 7 days: Do not submerse your procedure site in water Do not swim, wash dishes, or take tub baths You may write, eat, type, and shower WOUND CARE Keep armboard and dressing on for 24 hours; then wash, dry, and apply Band-Aid Keep a Band-Aid on your procedure site for the next 3-4 days Change the Band-Aid daily or if it gets wet/soiled AFTER YOU GO HOME, CALL YOUR DOCTOR FOR: Any increase in bruising or tenderness from the procedure site Any redness, pus, or other signs of infection at the site A temperature above 100.5 Severe pain at the site DIAL 911 AND RETURN TO THE HOSPITAL FOR: Any bleeding from the procedure site. The site may be bruised or tender, but it should not be bleeding at any time. If your site begins to bleed, hold firm pressure on it and dial 911 to return to the hospital Any increase in swelling at the procedure site. An increase in swelling could mean the area is bleeding under the skin. Hold firm pressure to the site and dial 911 to return to the hospital Document Released: 07/14/2006 Document Revised: 06/30/2013 Document Reviewed: 07/15/2014 ExitCare Patient Information 2015 Lessons Only. This information is not intended to replace advicegiven to you by your health care provider. Make sure you discuss any questions you have with your health care provider. Moderate Conscious Sedation, Adult, Care After These instructions provide you with information about caring for yourself after your procedure. Your health care provider may also give you more specific instructions. Your treatment has been plannedaccording to current medical practices, but problems sometimes occur. Call your health care provider if you have any problems or questions after your procedure. What can I expect after the procedure? After your procedure, it is common: To feel sleepy for several hours. To feel clumsy and have poor balance for several hours. To have poor judgment for several hours. To vomit if you eat too soon. Follow these instructions at home: For at least 24 hours after the procedure: Do not: ? Participate in activities where you could fall or become injured. ? Drive. ? Use heavy machinery. ? Drink alcohol. ? Take sleeping pills or medicines that cause drowsiness. ? Make important decisions or sign legal documents. ? Take care of children on your own. Rest. Eating and drinking Follow the diet recommended by your health care provider. If you vomit: ? Drink water, juice, or soup when you can drink without vomiting. ? Make sure you have little or no nausea before eating solid foods. General instructions Have a responsible adult stay with you until you are awake and alert. Take rsio-nwz-zppoqwf and prescription medicines only as told by your health care provider. If you smoke, do not smoke without supervision. Keep all follow-up visits as told by your health care provider. This is important. Contact a health care provider if: You keep feeling nauseous or you keep vomiting. You feel light-headed. You develop a rash. You have a fever. Get help right away if: You have trouble breathing. This information is not intended to replace advice given to you by your health care provider. Make sure you discuss any questions you have with your health care provider. Document Released: 05/04/2014 Document Revised: 06/26/2018 Document Reviewed: 11/02/2016 [employer] Patient Education 2020 [employer]. Additional Information VACCINATE! IT SAVES LIVES! Members of the community who have not yet received the COVID-19 vaccine and would like to receive it can visit one of [facility] vaccine clinics. There are many vaccine clinic locations within the [facility]. For locations and available times, please visit [email or web address].[place].gov/. It is important to note that some COVID mobile vaccine clinics are held outdoors and may be canceled in rainy or stormy conditions. To learn more about pediatric vaccinations (ages 5-11), we invite you to visit the [facility] webpage. [email or web address].[email or web address]/[email or web address] stions.htmlTo learn more about the COVID-19 vaccine, we invite you to visit the CDC website for a list of frequently asked questions.https://www.cdc.gov/coronavirus/2019-ncov/vaccines/faq.html [facility] Patient Portal Access Instructions: Stay connected with your healthcare team and access your personal medical information anytime with the [facility] Patient Portal. Please follow the directions below to create your [facility] account: 1.Access the email account you provided upon registration to the hospital/physician office.2.Look for an invitation email from [facility].3.Open the email and access the invitation link: AcceptInvitation to [facility].4.Fill in the required tristan to create your account. To access your account, visit [employer]/Stream MediaOneChart. Click the blue button labeled Access Patient Portal and then log in with the username and password that you created in the steps above. You will be able to view your test results, lab results, a summary of your visits, upcoming appointments and more. There is also a convenient messaging option where you can send secure messages to your p rovider. In addition, you will have the ability to download any documents or summaries to your computer and/or send the information securely to a physician. Remember that your healthcare information is confidential, so carefully consider who you will allowto register on the [facility] Patient Portal for access to your information. You can also access the [facility] Patient Portal on the [employer] Anywhere nakul. Simply click on Patient Portal and then log into your account. If you would like to receive a full copy of your medical records, please contact the [facility] Medical Records Department by calling [phone], Friday through Friday between 8 a.m. and 4:30 p.m. HOW TO SAFELY DISPOSE OF PRESCRIPTION MEDICATIONS [...] Call your local pharmacy or go to [email or web address] to find one close to you.3.Make use of household items: Use cat litter or old coffee grounds to dispose medications if other options arenot available. Mix your drugs with these household products, seal them in an airtight container andthrow it into the garbage. Call [facility]: [phone] to be sure your drugs can be [...] a CHART COPY. Signatures Patient Education Materials 3- Heart Cath/PCI radial (04/2018) (CUSTOM) Moderate Conscious Sedation, Adult, Care After Medication Leaflets My discharge plan and instructions have been reviewed and explained to me and I,LASHON TRACEY understand my current condition and have read and understand these discharge instructions. I have received a written copy of the plan/instructions. If I have questions, I am aware that I should contact my doctor. 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 No intervention. Continue medical management. Allergies NKA Procedures [facility] Consults Consult to Physician - Ordered -- 12/01/24 10:03:00 EDT, SETH LOUIS MD, Routine, severe mitral stenosis, valvuloplasty Objective Vitals and Measurements T: 36.4 C (Oral) HR: 72 RR: 16 BP: 166/78 SpO2: 98% HT: 156.2 cm WT: 71.2 kg Weight Dosing Weight: 71.2 kg (12/01/24) General Appearance: Comfortable, not in acute distress HEENT:Bilateral normal eye movements, normal oral cavity Neck: No JVD noted Cardiac: S1, S2, no murmurs, regular rhythm, normal rate, Lungs: No wheezes, normal chest expansion. Abdomen: No tenderness, no distention, normal bowel sounds. Musculoskeletal: No signs of acute synovitis. Neurological: Alert and oriented x3, no focal neurological deficits grossly. Extremities: no lower extremity edema, no crackles, no JVP distention, warm extremities. Psychiatric: Appropriate, normal mood. Code Status No qualifying data available. Admission Date 12/01/24 Discharge Date 12/01/24 Medications Unchanged ascorbic acid (Vitamin C 500 mg oral tablet)1 tab(s) by mouth once a day. magnesium oxide (Magnesium 250 mg tablet)2 tab(s) by mouth once a day for 7 Days. multivitamin (Multivitamin)1 tab(s) by mouth every day. warfarin (warfarin 5 mg oral tablet)1 tab(s) by mouth every day. Refills: 0. Follow Up Follow Up with TESSA PLUNKETT MD When:01/06/2025 09:30 AM EDT Where:[address] [facility] [place] [address]- [phone] Additional Information: THIS APPOINTMENT WILL BE WITH SRIKANTH ZAYAS Follow Up Appointments No qualifying data available. Follow Up Labs/Studies Discharge Labs No Follow-up Labs Discharge Studies No Follow-up Studies Discharge Diet No qualifying data available. Discharge Activity No qualifying data available. Condition on Discharge stable Readmission Risk/Palliative Score No qualifying data available. Discharge Disposition home Digitally Signed by BRAEDEN RUSSELL MD on 12/01/2024 10:38 AM Digitally Signed by TESSA PLUNKETT MD [id number] Hospital Discharge instructions Patient Education 07/08/2024 08:45:35 3- Loop recorder implant.explant 08/2019(CUSTOM) LOOP RECORDER INPLANT/EXPLANT Discharge Instructions WOUND CARE DO NOT place any ointments, creams, powders or lotions on the incision. Call your doctor s office immediately if you have: oIncreased redness oDrainage from the incision oIncreased pain, warmth or swelling on or around the site oFever or chills that you cannot connect with a cold or flu If you have a dressing: Keep the dressing clean and dry You may remove it after 5 days MEDICATIONS You may take Tylenol (acetaminophen) for incisional pain or discomfort. ACTIVITY RESTRICTIONS You may return to your normal activities after [address] may be restricted, especially if you have passed out in the past. Discuss driving restrictions with your storage solutions architect. FOLLOW UP Follow up with the Pacemaker center for routine evaluation of your device. Your appointment to haveyour device checked and to see the doctor in 12-14 weeks has been scheduled and is listed above in the follow up section of these discharge instructions. Device Monitor Now that you have a permanent pacemaker, ICD, and/or loop recorder (all called a device ) it shouldbe checked regularly. This is done with a monitor that sends information from the device to your storage solutions architect (heart doctor) office. How will I get my monitor? The monitor will be shipped to your home within 6 weeks after you are discharged. But, if you are given the monitor before discharge, please take it home. You may get other equipment (such as a bloodpressure cuff and weight scale) shipped as well. There is no charge for this equipment. How does the monitor work? The monitor needs to be set up close to where you sleep. The monitor will automatically meat pickler heart signals and send the information to your doctor. Or you may be asked to push a button to send theinformation. What are the next steps? You will have an appointment with the nurse at the Device Clinic in about 2 weeks and the nurse will check your device (you will not see your doctor). The nurses will talk to you about the monitor atthat time. When you get the monitor, there will be clear instructions with how to set it up. Please call the Device Clinic if you have questions. [facility]: [phone] Ask for the Device Clinic or chang-in extension [phone] or [phone] when prompted. Device Clinic Location: [facility] (not the physician office building). Enter the [facility] and take the elevators to the 2nd floor. Take the flor to the slight left labeled [facility] . If you are interested, you may find information about your device on the web, including videos thatwill help you understand and set up your monitor. The monitor you will get is based on the company that manufactured your device. Your device card will tell you the floral clerk. Using the search box: [employer]: Gigi Communicator quick start Patient Help: [employer]: MyCareLink quick start Patient Help: [facility] [employer] ([place]): [email or web address] quick start Patient Help: Other important information about your device: Always carry your device card with you. Your device may set off a metal detector. Be sure you have your device card with you if you plan togo through any area, such as an airport that may have a metal detector. Before having any test or procedure, make sure you tell the healthcare professional that you have an implanted device. Follow Up Care 05/05/2024 15:00:08 With:incision check Address: When:07/22/2024 09:30:00 Comments:cite check [facility] 12-12-2024 Summary of episode note Discharge Instructions Thank you for allowing [facility] to assist you with your healthcare needs. The following is importantdischarge information regarding your hospital visit. Your Care Team MITUL RUTHERFORD MD What to do next Scheduled Follow-Up Appointments Appointment Type When With Where Contact Information StatusCV Incision Check 07/22/2024 09:30 AM EST [facility] Confirmed CV OV 10/07/2024 11:30 AM TOYT [facility]KIN [facility] [facility] Confirmed Follow Up Appointments Follow Up with incision check When:07/22/2024 09:30 AM EST Additional Information: cite check Allergies NKA Medications Please ask your primary doctor or pharmacist before taking any other medication not listed, including over the counter drugs, herbal medications, vitamins and or supplements as they may interact withyour home medications. What How Much When Instructions Last Dose Unchanged acetaminophen (acetaminophen 325 mg oral capsule) 1 cap by mouth Every 4 hours as needed for as needed for fever Unchanged ascorbic acid (Vitamin C 500 mg oral tablet) 1 tab(s) by mouth Once a day Unchanged atorvastatin (atorvastatin 20 mg oral tablet) 1 tab(s) by mouth Every day Unchanged magnesium oxide (Magnesium 250 mg tablet) 2 tab(s) by mouth Once a day Duration: 7 Days Unchanged warfarin (warfarin 5 mg oral tablet) 1 tab(s) by mouth Every day Please take this list to your next doctor s visit. Bring all medications you take, including over the counter medications, herbals and other supplements with you to your doctor s visit. Patients and families are reminded to discard old lists and to update any records with all medication providers or retail pharmacies. Education Materials LOOP RECORDER INPLANT/EXPLANT Discharge Instructions WOUND CARE DO NOT place any ointments, creams, powders or lotions on the incision. Call your doctor s office immediately if you have: o Increased redness o Drainage from the incision o Increased pain, warmth or swelling on or around the site o Fever or chills that you cannot connect with a cold or flu If you have a dressing: Keep the dressing clean and dry You may remove it after 5 days MEDICATIONS You may take Tylenol (acetaminophen) for incisional pain or discomfort. ACTIVITY RESTRICTIONS You may return to your normal activities after [address] may be restricted, especially if you have passed out in the past. Discuss driving restrictions with your storage solutions architect. FOLLOW UP Follow up with the Pacemaker center for routine evaluation of your device. Your appointment to haveyour device checked and to see the doctor in 12-14 weeks has been scheduled and is listed above in the follow up section of these discharge instructions. Device Monitor Now that you have a permanent pacemaker, ICD, and/or loop recorder (all called a device ) it shouldbe checked regularly. This is done with a monitor that sends information from the device to your storage solutions architect (heart doctor) office. How will I get my monitor? The monitor will be shipped to your home within 6 weeks after you are discharged. But, if you are given the monitor before discharge, please take it home. You may get other equipment (such as a bloodpressure cuff and weight scale) shipped as well. There is no charge for this equipment. How does the monitor work? The monitor needs to be set up close to where you sleep. The monitor will automatically meat pickler heart signals and send the information to your doctor. Or you may be asked to push a button to send theinformation. What are the next steps? You will have an appointment with the nurse at the Device Clinic in about 2 weeks and the nurse will check your device (you will not see your doctor). The nurses will talk to you about the monitor atthat time. When you get the monitor, there will be clear instructions with how to set it up. Please call the Device Clinic if you have questions. [facility]: [phone] Ask for the Device Clinic or chang-in extension [phone] or [phone] when prompted. Device Clinic Location: [facility] (not the physician office building). Enter the [facility] and take the elevators to the 2nd floor. Take the flor to the slight left labeled [facility] . If you are interested, you may find information about your device on the web, including videos thatwill help you understand and set up your monitor. The monitor you will get is based on the company that manufactured your device. Your device card will tell you the floral clerk. Using the search box: [employer]: Tiarram[employer] Communicator quick start Patient Help: [employer]: MyCareLink quick start Patient Help: [facility] [employer] ([place]): [email or web address] quick start Patient Help: Other important information about your device: Always carry your device card with you. Your device may set off a metal detector. Be sure you have your device card with you if you plan togo through any area, such as an airport that may have a metal detector. Before having any test or procedure, make sure you tell the healthcare professional that you have an implanted device. Additional Information VACCINATE! IT SAVES LIVES! Members of the community who have not yet received the COVID-19 vaccine and would like to receive it can visit one of [facility] vaccine clinics. There are many vaccine clinic locations within the [facility]. For locations and available times, please visit https://gettheshot.coronavirus.[place].gov/. It is important to note that some COVID mobile vaccine clinics are held outdoors and may be canceled in rainy or stormy conditions. To learn more about pediatric vaccinations (ages 5-11), we invite you to visit the [facility] webpage. https://www.[facility].org/pages/4697-Lfqpy-Vvdexpjsfwh-Rboxnfmufw-Imknd-Ouu stions.htmlTo learn more about the COVID-19 vaccine, we invite you to visit the CDC website for a list of frequently asked questions.https://www.cdc.gov/coronavirus/2019-ncov/vaccines/faq.html [facility] Patient Portal Access Instructions: Stay connected with your healthcare team and access your personal medical information anytime with the [facility] Patient Portal. Please follow the directions below to create your Grid Net account: 1.Access the email account you provided upon registration to the hospital/physician office.2.Look for an invitation email from [facility].3.Open the email and access the invitation link: AcceptInvitation to [facility].4.Fill in the required tristan to create your account. To access your account, visit parish.[employer]/[place]NOneCharcheng. Click the blue button labeled Access Patient Portal and then log in with the username and password that you created in the steps above. You will be able to view your test results, lab results, a summary of your visits, upcoming appointments and more. There is also a convenient messaging option where you can send secure messages to your p rovider. In addition, you will have the ability to download any documents or summaries to your computer and/or send the information securely to a physician. Remember that your healthcare information is confidential, so carefully consider who you will allowto register on the [facility] Patient Portal for access to your information. You can also access the [facility] Patient Portal on the [facility] nakul. Simply click on Patient Portal and then log into your account. If you would like to receive a full copy of your medical records, please contact the [facility] Medical Records Department by calling [phone], Friday through Friday between 8 a.m. and 4:30 p.m. HOW TO SAFELY DISPOSE OF PRESCRIPTION MEDICATIONS [...] Call your local pharmacy or go to [email or web address] to find one close to you.3.Make use of household items: Use cat litter or old coffee grounds to dispose medications if other options arenot available. Mix your drugs with these household products, seal them in an airtight container andthrow it into the garbage. Call [facility]: [phone] to be sure your drugs can be [...] a CHART COPY. Signatures Patient Education Materials 3- Loop recorder implant.explant 08/2019(CUSTOM) Medication Leaflets My discharge plan and instructions have been reviewed and explained to me and IALEXY LASHON Red understand my current condition and have read and understand these discharge instructions. I have received a written copy of the plan/instructions. If I have questions, I am aware that I should contact my doctor. 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 HISTORY: ORDERING SYSTEM PROVIDED HISTORY: Reason for Exam: Implantable Loop Recorder Placement FINDINGS: Loop recorder overlies the left atrium. Lungs show symmetric pneumatization without active alveolar, interstitial or pleural process. Skeletal elements remain intact. IMPRESSION: 1. Loop recorder in situ. 2. No acute airspace disease. Interpreted by: López Ngo DO Preliminary Report By: López Ngo DO Electronically signed By López Ngo DO Dictated Date: 07/08/2024 9:10:04 AM Prelim Date: 07/08/2024 9:10:42 AM Sign Date: 07/08/2024 9:10:42 AM Ordering Provider: [facility]12-12-2024 NoteSINUS RHYTHM POOR QUALITY Electronic Signature: MAIRA SOLANO MD 07/08/2024 11:13:16[facility] 07-04-2024 [facility]02-10-2024 Hospital Discharge instructions* Discharge Instructions* Russ Delgado MD - 09/06/2023 1:58 AM EST Make sure you drink plenty of fluids. You can have Advil or Tylenol for pain. You were treated with Diflucan for your urinary yeast infection. You have no other urinary tract infection your blood work was normal. Not improving follow- up with your primary care physician * Attachments The following attachments cannot be sent through Care Everywhere. * Fatigue Discharge Instructions (Sammarinese) * Dehydration, Adult ED (Sammarinese) documented in this [facility]02-09-2024 Emergency department Note* Russ Delgado MD - 09/05/2023 11:27 PM EST EMERGENCY DEPARTMENT ENCOUNTER Pt Name: Lashon Tracey Birthdate 1940 Date of evaluation: 09/05/2023 ED Provider: Russ Delgado MD CHIEF COMPLAINT Chief Complaint Patient presents with Urinary Frequency HISTORY OF PRESENT ILLNESS (Location/Symptom, Timing/Onset, Context/Setting, Quality, Duration, Modifying Factors, Severity) Note limiting factors. I wore appropriate PPE for the entirety of this encounter. HPI Lashon Tracey is a 83 y.o. who presents to the emergency department with chief complaint of patientwith a history of hypertension and stroke was [...] Culture. Procedure Abnormality Status --------- ------ Complete Urinalysis[[id number]] Please view results for these tests on [...] likely she will be able to be dischargedback to her rehab facility Reexam 01 50: [...] sepsis, or septic shock (If yes use .sepsiscoremeasure): no FINAL IMPRESSION No diagnosis found. DISPOSITION [...] are any questions or concerns please feel freeto contact the dictating provider for clarification.) Russ Delgado MD (electronically signed) Emergency Medicine Provider Russ Delgado MD 09/06/23 0649 * Tabitha Bowles RN - 09/05/2023 11:27 PM EST Lashon Tracey, age 83, came to ED7 by squad for a chief complaint of urinary frequency. Pt stated she has wet the bed the last two nights which is not normal for the pt. Pt's kids are worried about aUTI. Pt denies any back pain, n/v, difficulty urinating. Vitals obtained. Call light within reach. documented in this [facility]02-09-2024 Emergency department Triage note* Tabitha Bowles RN - 09/05/2023 11:27 PM EST Lashon Tracey, age 83, came to ED7 by squad for a chief complaint of urinary frequency. Pt stated she has wet the bed the last two nights which is not normal for the pt. Pt's kids are worried about aUTI. Pt denies any back pain, n/v, difficulty urinating. Vitals obtained. Call light within reach. [id number] Physician Emergency department Note* Russ Delgado MD - 09/05/2023 11:27 PM EST EMERGENCY DEPARTMENT ENCOUNTER Pt Name: Lashon Tracey Birthdate 1940 Date of evaluation: 09/05/2023 ED Provider: Russ Delgado MD CHIEF COMPLAINT Chief Complaint Patient presents with Urinary Frequency HISTORY OF PRESENT ILLNESS (Location/Symptom, Timing/Onset, Context/Setting, Quality, Duration, Modifying Factors, Severity) Note limiting factors. I wore appropriate PPE for the entirety of this encounter. HPI Lashon Tracey is a 83 y.o. who presents to the emergency department with chief complaint of patientwith a history of hypertension and stroke was [...] Culture. Procedure Abnormality Status --------- ------ Complete Urinalysis[[id number]] Please view results for these tests on [...] likely she will be able to be dischargedback to her rehab facility Reexam 01 50: [...] sepsis, or septic shock (If yes use .sepsiscoremeasure): no FINAL IMPRESSION No diagnosis found. DISPOSITION [...] are any questions or concerns please feel freeto contact the dictating provider for clarification.) Russ Delgado MD (electronically signed) Emergency Medicine Provider Russ Delgado MD 09/06/23 0649 [facility]01-23-2024 Discharge summary Author Richard Mistry [facility] August 19, 2023 1:29pm Note Date/Time August 19, 2023 1 :24pm [facility] Medical Records Department [address] [place] [address] Transfer to [facility] MR#: [id number] Acct: [id number] Name: LASHON TRACEY Rep #:[id number] : 1940 83 From: Richard Sykes PCP: Dr. Mitul Rutherford MD Status:ADM IN Certification of patient admission REQUIRED AT TIME OF ADMISSION. I CERTIFY THAT POST-HOSPITAL ECF SERVICES ARE REQUIRED TO BE GIVEN ON AN IN-PATIENT BASIS BECAUSE OF THE ABOVE NAMED PATIENT'S NEED FOR SNF CARE ON A CONTINUING BASIS FOR THE CONDITION(S) FOR WHICH HE/SHE WAS RECEIVING IN-PATIENT HOSPITAL SERVICES PRIOR TO HIS/HER TRANSFER TO THE F. 08/19/23 1329<Electronically signed by Richard Mistry MD> Diet Diet Order/Speech Therapy: 08/14/23 14:04 Diet: Cardiac - Heart Healthy Food consistency:: Regular Liquid Consistency:: Regular/Thin Diet Comments: Distant supervision, oral care after meals, alt bites/sips Routine Orders/Code Status Suppository Type: Dulcolax 10mg Suppository Frequency: Daily PRN Therapies Weight Bearing: Weight bearing as tolerated Extremity Affected:: Bilateral Lower Physical Therapy: Eval and Treat Occupational Therapy: Eval and Treat Speech Therapy: Eval and Treat Problem/Diagnosis (1) CVA (cerebral vascular accident): Status: Acute Code(s): I63.9 - Cerebral infarction, unspecified Plan 1. 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 She has had 2 previous strokes 1 cerebellar is the most recent and had to be transferred to a tertiary center as there is a concern for vertebral artery thrombus though family states no intervention was done the outside hospital and after discharge she had no residual deficits ?With her other stroke she did not have any left facial droop or left-sided weakness ? She is already on aspirin and Plavix as well as Lipitor will continue with telemetry, will need a 30-day event monitor on discharge however she may be going to a intermediate ? Lipitor increased from 40 mg to 80 mg nightly ? MRI with multiple subacute infarcts in the periventricular white matter of theright parietal lobe, continue with her antiplatelets Patient was seen by [facility] neurologist and recommended to continue DAPT.. From a stroke standpoint will need long-term antiplatelet agent but defer to primary neurologist. Continue statin to keep LDL less than 70. 30-day event monitor. ?She was supposed to wear Holter monitor after her last admission after she was transferred to [facility] but that does not appear to have occurred current telemetry does not indicate A-fib A1c 5.6%. ? Permissive hypertension ? Will not repeat an echo she had 1 in May with a normal EF of 65% and severe mitral valve stenosis, her PASP was 45 to 50 mmHg and the bubble study was negative ?Continue with Zoloft for mood disturbance given her medical situation DVT: SCDs Continue PT and OT and pre-CERT. Discharged with 30-day event monitor. Patientfollows Dr. Broussard. Allergies/Procedures Done in Hospital Allergies No Known Allergies Allergy (Verified 07/29/23 09:14) Type of Care/Length of Stay Estimated LOS: Convalescent Care Less Than 30 days Type of Care Needed: Skilled Rehab Potential: Good Prognosis: Good Additional Orders/Day of Discharge Day of Discharge: 08/19/23 Dietary and Speech Recommendations Dietitian Recommendations/Changes: Will continue Cardiac diet as ordered Will order ensure plus high protein ONS at medpass 4x/day for increased nutrition if consumed. Available if diet education desired prior to d/c Speech Linguistic Eval Summary: Patient lived at home independently prior to this CVA. Orientation: Fully oriented to self, age, , address, time, place, and full date. Auditory Comprehension: Yes/no questions (moderate) - 5/5 acc. Multistep directions (3-5 steps) - 3/5 acc. Verbal Expression: Repetition of words - 9/10 acc, Repetition of phrases - 7/10 acc. Confrontation naming of objects - 10/10 acc. Divergent naming (concrete) - 15 items in 60 sec. Divergent naming (abstract) - 8 items in 60 sec. Pt's speechwas 100% intelligible; however, she had intermittent imprecise articulation, especially speaking or repeating multisyllabic words. She also has a slow rate of speech, although speech is fluent. Informal dysarthria assessment (Females aged 74-86) - Diadochokinetic rates: Repeated /p^/ - 4.3 syllables per second (WNL = 4.1-7.6). Repeated /t^/ - 4.2 syllables per second (WNL = 3.9-7.2). Repeated /k^/ - 3.5 syllables per second (WNL = 3.2-6.9). Repeated /p^t^k ^/ - 0.9 syllables per second (WNL = 4.3-6.9). Sustained ?ah?- 3.85 seconds (WNL = atleast 14 seconds). Memory: Immediate recall of 3-word list - 3/3 acc, 5-min delayed recall of 3- word list - 3/3 acc. Social Interaction: Good topic maintenance. Pt appropriately responded in all conversation exchanges. The patient presents with mild dysarthria characterized by slowed rate and imprecise articulation. Goals added to POC to address deficits in speech clarity. The patient presented with two errors completing 4-5 step commands. While the patient did not present with any major indicators of cognitive-linguistic impairment from this informal cognitive-linguistic assessment, she is presentingwith slowed processing and response time per family. DOT COMPLIANCE SPECIALIST will recommend a full cognitive-linguistic assessment to include evaluation of executive functioning, attention, and auditory comprehension at next level of care as the patient was functioning independently in her home prior to this CVA. DOT COMPLIANCE SPECIALIST spoke with case management re: recommendation for inpatient rehab. manager banking stated they are already in the referral process for discharge to inpatient rehab. Discharge Plan Admission Admit Date/Time: 08/15/23 12:17 Primary Reason for Your Visit: Acute on recurrent a stroke Attending Provider: Richard Mistry Primary Care Provider: Mitul Rutherford Consulting Providers: Jorge French; Jamal Webster; Swati Lobo; Kathi Alejo; Clemencia Summers; Devan Zepeda; Azucena Brantley; Buddy Arellano; Vivek Silverman; Yareli Munguia; Holger Wise; Rita Manzano; Glory Norris; Dia Burrows; Dale Steen; Natalee Sandra; Lorenzo Connelly; Nabila Crane; Jose Casey;Mukul Franco Discharge Orders/Prescriptions Prescriptions: New atorvastatin 80 mg Tablet 80 mg PO QHS Qty: 30 2RF lisinopril 5 mg tablet 5 mg PO DAILY Qty: 30 2RF sertraline 50 mg Tablet 50 mg PO DAILY Qty: 0 0RF Continued aspirin [Adult Aspirin Regimen] 81 mg tablet,delayed release (DR/EC) 81 mg PO DAILY Hold Instructions: MD Ordered multivitamin [Multiple Vitamins] Tablet 1 tab PO DAILY clopidogrel 75 mg tablet 75 mg PO DAILY Qty: 30 0RF Rx Instructions: Recommend to continue 90 days from 08/14/2023. Discontinued atorvastatin 40 mg tablet 40 mg PO DAILY Referrals / Follow Up: Mitul Rutherford MD [Primary Care Provider] - Within 2 Weeks Valdo Izquierdo MD [Non-Staff -Ordering Privileges] - Within 1 Month Disposition Disposition (needs filled in before D/C Order can be placed): Home, Self Care 08/19/23 1329 <Electronically signed by Richard Mistry MD> Cosigner Signature (if applicable): CC: Kathi Alejo; Jamal Webster; Rita Manzano; Dale Kelley; Clemencia Summers MD;Swati Lobo MD; Jorge French MD; Dr. Devan Zepeda MD; Dr. Mitul Rutherford MD;Dr. Azucena Brantley MD; Dr. Vivek Silverman MD; Dr. Buddy Arellano MD; Dr. Holger Wise DO; Dr. Dia Burrows MD; Dr. Glory Norris MD; Dr. Mukul Franco MD; Dr. Natalee Sandra MD; Dr. Lorenzo Connelly MD; Dr. Nabila Crane MD; Yareli Munguia DO; Jose Casey MD ~ [facility] Work Phone: 1(605) 575-254001-23-2024 Discharge summary Author Richard Mistry [facility] August 19, 2023 1:36pm Note Date/Time August 19, 2023 1 :29pm [facility] Medical Records Department [address] [place] [address] Discharge Summary 08/19/23 1329 MR#: [id number] Acct: [id number] Name: LASHON TRACEY Rep #:[id number] : 1940 83 From: Richard Sykes PCP: Dr. Mitul Rutherford MD Status:ADM IN Location: [place] [id number] Providers Date of Admission: 08/15/23 Date of Discharge: 08/19/23 Primary Care Physician: Dr. Mitul Rutherford MD Consultations 08/15/23 07:51 Consult: Tele-Neurology Routine Consulting Provider: [facility] Reason for Consult: Subacute Right parietal CVA EMERGENT Consult: No MD Notified: Yes Date Notified: 08/15/23 Time Notified: 08:12 Method of Notification: Answering Service Nursing Unit Staff Notify [facility] of Tele-Neurology Consult: Yes Reason For Visit: CVA RULE OUT Diagnosis Discharge Diagnosis (1) CVA (cerebral vascular accident): Status: Acute Code(s): I63.9 - Cerebral infarction, unspecified Plan 83-year-old female was admitted with left facial droop and apathy more than her baseline. She has history of multiple recurrent a stroke, most recent in May 2023 when she had cerebellar stroke. 1. 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 She has had 2 previous strokes 1 cerebellar is the most recent and had to be transferred to a tertiary center as there is a concern for vertebral artery thrombus though family states no intervention was done the outside hospital and after discharge she had no residual deficits ?With her other stroke she did not have any left facial droop or left-sided weakness ? She is already on aspirin and Plavix as well as Lipitor will continue with telemetry, will need a 30-day event monitor on discharge however she may be going to a intermediate ? Lipitor increased from 40 mg to 80 mg nightly ? MRI with multiple subacute infarcts in the periventricular white matter of theright parietal lobe, continue with her antiplatelets Patient was seen by [facility] neurologist and recommended to continue DAPT.. From a stroke standpoint will need long-term antiplatelet agent but defer to primary neurologist. Continue statin to keep LDL less than 70. 30-day event monitor. ?She was supposed to wear Holter monitor after her last admission after she was transferred to [facility] but that does not appear to have occurred current telemetry does not indicate A-fib A1c 5.6%. 08/19: Patient discharged on aspirin, Plavix and atorvastatin 80 mg daily. Prescription also given for lisinopril 5 mg daily. Patient follows patient follows neurologist Dr. Izquierdo in 1 month. discharged on 30-day event monitor. ? Permissive hypertension ? Will not repeat an echo she had 1 in May with a normal EF of 65% and severe mitral valve stenosis, her PASP was 45 to 50 mmHg and the bubble study was negative For anxiety and depression ?Continue with Zoloft for mood disturbance given her medical situation. Zoloft continued. DVT: SCDs Patient is being discharged to SNF. Discharge medication reconciliation done. Discharge follow-up instructions completed. Discharge process discussed with the patient and all questions were answered to patient's satisfaction. Follow with PCP in 1 to 2 weeks Total time spent, exact 35 minutes on discharge meds reconciliation, examination, coordination of care with nurses and ancillary staff, review of imaging and blood test and discussion with the patient on follow-up instructions. Medications at Discharge Home Medications aspirin 81 mg tablet,delayed release (Adult Aspirin Regimen) 81 mg PO DAILY HEART HEALTH 01/24/21 multivitamin (Multiple Vitamins tablet) 1 tab PO DAILY SUPPLEMENT 08/14/23 atorvastatin 80 mg tablet 80 mg PO QHS #30 tabs 08/19/23 clopidogrel 75 mg tablet 75 mg PO DAILY BLOOD THINNER #30 tabs 08/19/23 lisinopril 5 mg tablet 5 mg PO DAILY #30 tabs 08/19/23 sertraline 50 mg tablet 50 mg PO DAILY #0 tabs 08/19/23 Physical Exam Narrative Seen and examined. Patient looks apathetic, mildly depressed. Otherwise no acute change. Patient has left upper extremity weakness and left-sided facial droop. Denies any change in the speech, either sensory or motor/difficulty in comprehension, reading or writing. Patient states she had 2 strokes in the past Physical exam General: Alert, Oriented x3, Cooperative HEENT: Atraumatic, PERRLA, EOMI, Normocephalic Oral: No Gingival or Mucosal Lesions/ Ulcerations Neck: Supple, No JVD, Negative Carotid Bruits Lungs: Air entry diminished in bilateral lung bases. No crepitation/rhonchi Cardiovascular: Regular rate, Regular Rhythm, Normal S1, Normal S2, No murmurs Abdomen: Bowel Sounds Present, Soft, Non Tender, Non-Distended : Denies dysuria. No renal angle tenderness. No suprapubic tenderness. Extremities: No edema, Capillary Refill Less than 3 Seconds Skin: No rashes, No breakdown Musculoskeletal: Left upper extremity weak. History of left knee surgery. Chronic weakness of both lower extremities. Neurological: Left facial nerve palsy. DTR 2+/4. Left upper extremity weakness and facial droop. Psych/Mental Status: Looks depressed. Apathy. Flat affect. Weight / BMI Weight Weight: 163 lb 5.8 oz Body Mass Index (BMI) 30.9 ABG / Lab / Microbiology Data 08/18/23 05:25 08/18/23 05:25 Microbiology: Microbiology 08/14/23 11:26 Urine, Clean Catch Urine Culture - Final Culture exhibits no growth. Meaningful Use Info Meaningful Use Diagnoses (Choose all that apply): Ischemic CVA CVA Therapy Assessed for PT,OT and/or ST?: Yes Ischemic Stroke Antithrombotic order at d/c?: Yes Dx of Atrial fib/flutter?: No Anticoagulant at discharge?: Yes Statins at discharge?: Yes Primary Dx Acute Ischemic CVA?: Yes Discharge Plan Admission Admit Date/Time: 08/15/23 12:17 Primary Reason for Your Visit: Acute on recurrent a stroke Attending Provider: Richard Mistry Primary Care Provider: Mitul Rutherford Consulting Providers: Jorge French; Jamal Webster; Swait Lobo; Kathi Alejo; Clemencia Summers; Devan Zepeda; Azucena Brantley; Buddy Arellano; Vivek Silverman; Yareli Munguia; Holger Wise; Rita Manzano; Glory Norris; Dia Burrows; Dale Steen; Natalee Sandra; Lorenzo Connelly; Nabila Crane; Jose Casey;Mukul Franco Discharge Orders/Prescriptions Prescriptions: New atorvastatin 80 mg Tablet 80 mg PO QHS Qty: 30 2RF lisinopril 5 mg tablet 5 mg PO DAILY Qty: 30 2RF sertraline 50 mg Tablet 50 mg PO DAILY Qty: 0 0RF Continued aspirin [Adult Aspirin Regimen] 81 mg tablet,delayed release (DR/EC) 81 mg PO DAILY Hold Instructions: MD Ordered multivitamin [Multiple Vitamins] Tablet 1 tab PO DAILY clopidogrel 75 mg tablet 75 mg PO DAILY Qty: 30 0RF Rx Instructions: Recommend to continue 90 days from 08/14/2023. Discontinued atorvastatin 40 mg tablet 40 mg PO DAILY Other Ambulatory Orders: 30 Day Event Recorder Preventi (Urgent) Timeframe: 1 Day Facility: [facility] - Location: Cardiovascular Services Ordered By: Dr. Richard Mistry Referrals / Follow Up: Mitul Rutherford MD [Primary Care Provider] - Within 2 Weeks Valdo Izquierdo MD [Non-Staff -Ordering Privileges] - Within 1 Month Disposition Disposition (needs filled in before D/C Order can be placed): Home, Self Care Charges/Coding Visit Charges Inpatient E&M: 85545 Disch Hosp >30min 08/19/23 1336 <Electronically signed by Richard Mistry MD> Cosigner Signature (if applicable): CC: Dr. Mitul Rutherford MD; Dr. Richard Mistry MD~ Signed [facility] Work Phone: 1(191) 697-531601-23-2024 [facility]2024 Progress note Author Richard Mistry [facility] August 18, 2023 2:47pm Note Date/Time August 18, 2023 9 :23am [facility] Medical Records Department [address] [place] [address] Progress Note - Hospitalist 08/18/23919 MR#: [id number] Acct: [id number] Name: LASHON TRACEY Rep #:[id number] : 1940 83 From: Richard Sykes PCP: Dr. Mitul Rutherford MD Status:ADM IN Location: [place] [address] Reason for Visit Reason for Visit: Diagnoses Cerebral infarction, unspecified (08/15/23) Objective Data Objective Data Vital Signs: Vital Signs Temp Pulse Resp BP Pulse Ox O2 Del Method 97.7 F L 66 12 135/70 H 97 Room Air 08/18/23 08:30 08/18/23 08:30 08/18/23 08:30 08/18/23 08:30 08/18/23 08:30 08/18/23 08:30 Oxygen Delivery Method Room Air Weight: 163 lb 5.8 oz Body Mass Index (BMI) 30.9 Intake & Output: Intake and Output for Last 24 Hours 08/16/23 08/17/23 08/18/23 23:59 23:59 23:59 Intake Total 2868.75 / 2868.75 2676.25 / 2916.25 240 / 240 Output Total 1750 / 2450 1700 / 2025 1125 / 1125 Balance 1118.75 / 418.75 976.25 / 891.25 -885 / -885 Lab / Micro Data 08/18/23 05:25 08/18/23 05:25 Labs: Laboratory Results - last 24 hr 08/18/23 05:25: WBC 6.9, RBC 3.69 L, Hgb 11.0 L, Hct 34.3 L, MCV 93.0, MCH 29.8,MCHC 32.1, RDW Std Deviation 45.9 H, RDW Coeff of Alfredo 13.4, Plt Count 344, MPV 9.8, Immature Gran % (Auto) 0.300, Neut % (Auto) 66.9, Lymph % (Auto) 21.0, [place]% (Auto) 6.3, Eos % (Auto) 4.8, Baso % (Auto) 0.7, Absolute Neuts (auto) 4.6, Absolute Lymphs (auto) 1.44, Nucleated RBC % 0, Sodium 143, Potassium 3.8, Chloride 113 H, Carbon Dioxide 25.0, Anion Gap 5, BUN 7, Creatinine 0.86, Estim Creat Clear Calc 44.83, Est GFR (MDRD) Af Amer 81, Est GFR (MDRD) Non-Af 67, BUN/Creatinine Ratio 8.1 L, Glucose 95, Calcium 8.7 Micro: Microbiology 08/14/23 11:26 Urine, Clean Catch Urine Culture - Final Culture exhibits no growth. Rhythm Strip Rhythm Strip: Sinus Rhythm Rate: 90 Ectopy: None Physical Exam Narrative Seen and examined. Patient has left upper extremity weakness and left-sided facial droop. Denies any change in the speech, either sensory or motor/difficulty in comprehension, reading or writing. Patient states she had 2 strokes in the past Physical exam General: Alert, Oriented x3, Cooperative HEENT: Atraumatic, PERRLA, EOMI, Normocephalic Oral: No Gingival or Mucosal Lesions/ Ulcerations Neck: Supple, No JVD, Negative Carotid Bruits Lungs: Air entry diminished in bilateral lung bases. No crepitation/rhonchi Cardiovascular: Regular rate, Regular Rhythm, Normal S1, Normal S2, No murmurs Abdomen: Bowel Sounds Present, Soft, Non Tender, Non-Distended : Denies dysuria. No renal angle tenderness. No suprapubic tenderness. Extremities: No edema, Capillary Refill Less than 3 Seconds Skin: No rashes, No breakdown Musculoskeletal: Left upper extremity weak. History of left knee surgery. Chronic weakness of both lower extremities. Neurological: Left facial nerve palsy. DTR 2+/4. Left upper extremity weakness and facial droop. Psych/Mental Status: flat affect. Assessment & Plan Assessment/Plan (1) CVA (cerebral vascular accident): PLAN: Plan 1. 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 She has had 2 previous strokes 1 cerebellar is the most recent and had to be transferred to a tertiary center as there is a concern for vertebral artery thrombus though family states no intervention was done the outside hospital and after discharge she had no residual deficits ?With her other stroke she did not have any left facial droop or left-sided weakness ? She is already on aspirin and Plavix as well as Lipitor will continue with telemetry, will need a 30-day event monitor on discharge however she may be going to a intermediate ? Lipitor increased from 40 mg to 80 mg nightly ? MRI with multiple subacute infarcts in the periventricular white matter of theright parietal lobe, continue with her antiplatelets Patient was seen by [facility] neurologist and recommended to continue DAPT.. From a stroke standpoint will need long-term antiplatelet agent but defer to primary neurologist. Continue statin to keep LDL less than 70. 30-day event monitor. ?She was supposed to wear Holter monitor after her last admission after she was transferred to [facility] but that does not appear to have occurred current telemetry does not indicate A-fib A1c 5.6%. ? Permissive hypertension ? Will not repeat an echo she had 1 in May with a normal EF of 65% and severe mitral valve stenosis, her PASP was 45 to 50 mmHg and the bubble study was negative ?Continue with Zoloft for mood disturbance given her medical situation DVT: SCDs Continue PT and OT and pre-CERT. Discharged with 30-day event monitor. Patientfollows Dr. Broussard. Charges/Coding Visit Charges Inpatient E&M: 69113 Subs Hosp L2 08/18/23 4457 <Electronically signed by Richard Mistry MD> Cosigner Signature (if applicable): CC: ~ Signed [facility] Work Phone: 1(291) 649-149801-21-2024 Progress note Author Swati Lobo [facility] August 17, 2023 11:41am Note Date/Time August 17, 2023 1 1:41am [facility] Medical Records Department [address] [place] [address] Progress Note - Neurology 08/17/23 1132 MR#: [id number] Acct: [id number] Name: LASHON TRACEY Rep #:[id number] : 1940 83 From: Swati Lobo MD PCP: Dr. Mitul Rutherford MD Status:ADM IN Location: [place] [address] Objective Data Objective Data Vital Signs: Vital Signs Temp Pulse Resp BP Pulse Ox O2 Del Method 97.7 F L 86 16 134/69 H 99 Room Air 08/17/23 09:45 08/17/23 09:45 08/17/23 09:45 08/17/23 09:45 08/17/23 09:45 08/17/23 09:54 Oxygen Delivery Method Room Air Weight: 74.1 kg Body Mass Index (BMI) 30.9 Intake & Output: Intake and Output for Last 24 Hours 08/15/23 08/16/23 08/17/23 23:59 23:59 23:59 Intake Total 2945.0 / 2945.0 2868.75 / 2868.75 1000 / 1000 Output Total 800 / 800 1750 / 2450 1100 / 1100 Balance 2145.0 / 2145.0 1118.75 / 418.75 -100 / -100 Lab / Micro Data 08/16/23 07:19 08/16/23 07:19 Micro: Microbiology 08/14/23 11:26 Urine, Clean Catch Urine Culture - Final Culture exhibits no growth. Rhythm Strip Rhythm Strip: Sinus Rhythm Rate: 90 Ectopy: None Physical Exam HEENT normocephalic and head/scalp atraumatic Eyes EOMs intact bilaterally and normal visual tristan by confrontation Resp normal respiratory effort Neuro Neuro Narrative: Awake, alert, oriented X3 Cranial nerve 2-12 intact except left facial droop Mild dysarthria No aphasia Left hemiparesis Sensation intact Subject: Neurology Subjective LASHON TRACEY is a 83 year old F, who we are seeing in consultation today for advice on the management of stroke and related patient care. She reports persistent weakness on left side Assessment and Plan: Stroke Assessment/Plan LASHON TRACEY is a 83 F with a history of recurrent stroke who presents for evaluation of left facial droop, left hemiparesis, slurred speech for the last 3days. She is on DAPT at home and compliant. Not a candidate for thrombolysis as out of the window or thrombectomy as no LVO Neurological examination shows left hemiparesis. 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 MRI: Subacute infarcts of the periventricular white matter of the right parietal lobe. Recent TTE: EF 65% Recurrent stroke - cryptogenic in etiology Recommend Continue DAPT during acute phase. From stroke stand point residential needs only one AP agent. 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 PT,OT evaluation Speech and swallow eval Permissive hypertension in acute phase and needs truck terminal manager normal BP control Will need rehab DVT prophylaxis Thanks for the consult. I spent 31 min in evaluation and management of this patient. 08/17/23 1141 <Electronically signed by Swati Lobo MD> Cosigner Signature (if applicable): CC: ~ Signed [facility] Work Phone: 1(775) 163-107601-21-2024 Progress note Author Mukul Franco [facility] August 17, 2023 10:11am Note Date/Time August 17, 2023 1 0:11am [facility] Medical Records Department [address] [place] [address] Progress Note - Hospitalist 08/17/23 1007 MR#: [id number] Acct: [id number] Name: LASHON TRACEY Rep #:[id number] : 1940 83 From: Mukul lindsey MD PCP: Dr. Mitul Rutherford MD Status:ADM IN Location: [place] [address] Subjective Subjective Still dejected and depressed about her current medical situation willing to try Zoloft Objective Data Objective Data Vital Signs: Vital Signs Temp Pulse Resp BP Pulse Ox O2 Del Method 97.7 F L 86 16 134/69 H 99 Room Air 08/17/23 09:45 08/17/23 09:45 08/17/23 09:45 08/17/23 09:45 08/17/23 09:45 08/17/23 09:54 Oxygen Delivery Method Room Air Weight: 163 lb 5.8 oz Body Mass Index (BMI) 30.9 Intake & Output: Intake and Output for Last 24 Hours 08/16/23 08/17/23 08/18/23 03:59 03:59 03:59 Intake Total 2945.0 / 2945.0 2868.75 / 2868.75 Output Total 800 / 800 2450 / 2450 400 / 400 Balance 2145.0 / 2145.0 418.75 / 418.75 -400 / -400 Lab / Micro Data 08/16/23 07:19 08/16/23 07:19 Labs: Laboratory Results - last 24 hr 08/16/23 07:19: Hemoglobin A1c 5.6 Micro: Microbiology 08/14/23 11:26 Urine, Clean Catch Urine Culture - Final Culture exhibits no growth. Rhythm Strip Rhythm Strip: Sinus Rhythm Rate: 90 Ectopy: None Physical Exam Narrative General: Alert, Oriented x3, Cooperative, No apparent distress HEENT: Atraumatic, PERRLA, EOMI, Normocephalic Oral: Moist Mucosa Neck: Supple, No JVD Lungs: Diminished, Normal air movement, No rhonchi, No wheeze, No rales Cardiovascular: Regular rate, Regular Rhythm, Normal S1, Normal S2, No murmurs Abdomen: Soft, Non Tender, Non-Distended, No Hepato-splenomegaly Extremities: No edema, Capillary Refill Less than 3 Seconds Skin: No rashes, No breakdown Musculoskeletal: No Tenderness to Palpation of Joints or Extremities Neurological: Left facial droop, left upper and left lower extremity weakness Psych/Mental Status: Flat Assessment & Plan Assessment/Plan (1) CVA (cerebral vascular accident): PLAN: Plan 1. CVA ? She has had 2 previous strokes 1 cerebellar is the most recent and had to be transferred to a tertiary center as there is a concern for vertebral artery thrombus though family states no intervention was done the outside hospital and after discharge she had no residual deficits ?With her other stroke she did not have any left facial droop or left-sided weakness ? She is already on aspirin and Plavix as well as Lipitor will continue with telemetry, will need a 30-day event monitor on discharge however she may be going to a intermediate ? Will increase her Lipitor from 40 mg to 80 mg nightly ? MRI with multiple subacute infarcts in the periventricular white matter of theright parietal lobe, will consult [place] [facility] and continue with her antiplatelets ?She was supposed to wear Holter monitor after her last admission after she was transferred to [facility] but that does not appear to have occurred current telemetry does not indicate A-fib however given the presence of multiple infarcts will likely need an event monitor on discharge ? Permissive hypertension ? Will not repeat an echo she had 1 in May with a normal EF of 65% and severe mitral valve stenosis, her PASP was 45 to 50 mmHg and the bubble study was negative ?Continue with Zoloft for mood disturbance given her medical situation DVT: SCDs Disposition: Pending discharge to SNF will need 30-day event monitor Charges/Coding Visit Charges Inpatient E&M: 20439 Subs Hosp L2 08/17/23 1011 <Electronically signed by Mukul Franco MD> Cosigner Signature (if applicable): CC: ~ Signed [facility] Work Phone: 1(607) 595-617701-20-2024 Progress note Author Swati Lobo [facility] August 16, 2023 12:54pm Note Date/Time August 16, 2023 1 2:54pm [facility] Medical Records Department [address] [place] [address] Progress Note - Neurology 08/16/23 1246 MR#: [id number] Acct: [id number] Name: LASHON TRACEY Rep #:[id number] : 1940 83 From: Swati Lobo MD PCP: Dr. Mitul Rutherford MD Status:ADM IN Location: [place] [address] Objective Data Objective Data Vital Signs: Vital Signs Temp Pulse Resp BP Pulse Ox O2 Del Method 97.7 F L 76 16 134/56 H 97 Room Air 08/16/23 09:00 08/16/23 09:00 08/16/23 09:00 08/16/23 09:00 08/16/23 09:00 08/16/23 09:00 Oxygen Delivery Method Room Air Weight: 74.1 kg Body Mass Index (BMI) 30.9 Intake & Output: Intake and Output for Last 24 Hours 08/14/23 08/15/23 08/16/23 23:59 23:59 23:59 Intake Total 1052.5 / 1052.5 2945.0 / 2945.0 1290 / 1290 Output Total 800 / 800 1000 / 1000 Balance 1052.5 / 1052.5 2145.0 / 2145.0 290 / 290 Lab / Micro Data 08/16/23 07:19 08/16/23 07:19 Labs: Laboratory Results - last 24 hr 08/16/23 07:19: WBC 6.6, RBC 3.79 L, Hgb 11.1 L, Hct 35.5 L, MCV 93.7, MCH 29.3,MCHC 31.3 L, RDW Std Deviation 46.7 H, RDW Coeff of Alfredo 13.7, Plt Count 381, MPV9.4, Immature Gran % (Auto) 0.300, Neut % (Auto) 62.5, Lymph % (Auto) 27.1, [place]% (Auto) 7.2, Eos % (Auto) 2.3, Baso % (Auto) 0.6, Absolute Neuts (auto) 4.1, Absolute Lymphs (auto) 1.78, Nucleated RBC % 0, Sodium 143, Potassium 3.9, Chloride 113 H, Carbon Dioxide 26.0, Anion Gap 4 L, BUN 7, Creatinine 0.85, Estim Creat Clear Calc 45.36, Est GFR (MDRD) Af Amer 82, Est GFR (MDRD) Non-Af 67, BUN/Creatinine Ratio 8.2 L, Glucose 99, Hemoglobin A1c 5.6, Calcium 8.5 Micro: Microbiology 08/14/23 11:26 Urine, Clean Catch Urine Culture - Final Culture exhibits no growth. Rhythm Strip Rhythm Strip: Sinus Rhythm Rate: 90 Ectopy: None Physical Exam Const Orientation / Consciousness: awake, oriented to person, oriented to place and oriented to time Eyes EOMs intact bilaterally Resp normal respiratory effort Neuro Neuro Narrative: Awake, alert, oriented X3 Cranial nerve 2-12 intact except left facial droop Mild dysarthria No aphasia Left hemiparesis Sensation intact No ataxia Subject: Neurology Subjective LASHON TRACEY is a 83 year old F, who we are seeing in consultation today for advice on the management of stroke and related patient care. Improving left sided weakness Assessment and Plan: Stroke Assessment/Plan LASHON TRACEY is a 83 F with a history of stroke who presents for evaluation of left facial droop, left hemiparesis, slurred speech for the last 3 days. She is on DAPT at home and compliant. Not a candidate for thrombolysis as out of thewindow or thrombectomy as no LVO Neurological examination shows left hemiparesis. 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 MRI: Subacute infarcts of the periventricular white matter of the right parietal lobe. Recent TTE: EF 65% Recurrent stroke - cryptogenic in etiology Recommend Continue DAPT. From stroke stand point needs only one Ap agent. Defer DAPT to her primary neurologist Continue statin to keep LDL <70 Please obtain HbA1C 30 day Event monitor upon discharge for Afib. 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 i spent 32 min in evaluation and management of this patient. 08/16/23 1254 <Electronically signed by Swati Lobo MD> Cosigner Signature (if applicable): CC: ~ Signed [facility] Work Phone: 1(815) 653-791101-20-2024 Progress note Author Mukul Franco [facility] August 16, 2023 11:18am Note Date/Time August 16, 2023 1 1:18am [facility] Medical Records Department [address] [place] [address] Progress Note - Hospitalist 08/16/23 1116 MR#: [id number] Acct: [id number] Name: LASHON TRACEY Rep #:[id number] : 1940 83 From: Mukul lindsey MD PCP: Dr. Mitul Rutherford MD Status:ADM IN Location: [place] [address] Subjective Subjective Doing well, symptoms remain stable Objective Data Objective Data Vital Signs: Vital Signs Temp Pulse Resp BP Pulse Ox O2 Del Method 97.7 F L 76 16 134/56 H 97 Room Air 08/16/23 09:00 08/16/23 09:00 08/16/23 09:00 08/16/23 09:00 08/16/23 09:00 08/16/23 09:00 Oxygen Delivery Method Room Air Weight: 163 lb 5.8 oz Body Mass Index (BMI) 30.9 Intake & Output: Intake and Output for Last 24 Hours 08/15/23 08/16/23 08/17/23 03:59 03:59 03:59 Intake Total 1052.5 / 1052.5 2945.0 / 2945.0 1290 / 1290 Output Total 800 / 800 1000 / 1000 Balance 1052.5 / 1052.5 2145.0 / 2145.0 290 / 290 Lab / Micro Data 08/16/23 07:19 08/16/23 07:19 Labs: Laboratory Results - last 24 hr 08/16/23 07:19: WBC 6.6, RBC 3.79 L, Hgb 11.1 L, Hct 35.5 L, MCV 93.7, MCH 29.3,MCHC 31.3 L, RDW Std Deviation 46.7 H, RDW Coeff of Alfredo 13.7, Plt Count 381, MPV9.4, Immature Gran % (Auto) 0.300, Neut % (Auto) 62.5, Lymph % (Auto) 27.1, [place]% (Auto) 7.2, Eos % (Auto) 2.3, Baso % (Auto) 0.6, Absolute Neuts (auto) 4.1, Absolute Lymphs (auto) 1.78, Nucleated RBC % 0, Sodium 143, Potassium 3.9, Chloride 113 H, Carbon Dioxide 26.0, Anion Gap 4 L, BUN 7, Creatinine 0.85, Estim Creat Clear Calc 45.36, Est GFR (MDRD) Af Amer 82, Est GFR (MDRD) Non-Af 67, BUN/Creatinine Ratio 8.2 L, Glucose 99, Hemoglobin A1c 5.6, Calcium 8.5 Micro: Microbiology 08/14/23 11:26 Urine, Clean Catch Urine Culture - Final Culture exhibits no growth. Rhythm Strip Rhythm Strip: Sinus Rhythm Rate: 90 Ectopy: None Physical Exam Narrative General: Alert, Oriented x3, Cooperative, No apparent distress HEENT: Atraumatic, PERRLA, EOMI, Normocephalic Oral: Moist Mucosa Neck: Supple, No JVD Lungs: Diminished, Normal air movement, No rhonchi, No wheeze, No rales Cardiovascular: Regular rate, Regular Rhythm, Normal S1, Normal S2, No murmurs Abdomen: Soft, Non Tender, Non-Distended, No Hepato-splenomegaly Extremities: No edema, Capillary Refill Less than 3 Seconds Skin: No rashes, No breakdown Musculoskeletal: No Tenderness to Palpation of Joints or Extremities Neurological: Left facial droop, left upper and left lower extremity weakness Psych/Mental Status: Flat Assessment & Plan Assessment/Plan (1) CVA (cerebral vascular accident): PLAN: Plan 1. CVA ? She has had 2 previous strokes 1 cerebellar is the most recent and had to be transferred to a tertiary center as there is a concern for vertebral artery thrombus though family states no intervention was done the outside hospital and after discharge she had no residual deficits ?With her other stroke she did not have any left facial droop or left-sided weakness ? She is already on aspirin and Plavix as well as Lipitor will continue with telemetry, will need a 30-day event monitor on discharge however she may be going to a intermediate ? Will increase her Lipitor from 40 mg to 80 mg nightly ? MRI with multiple subacute infarcts in the periventricular white matter of theright parietal lobe, will consult [place] [facility] and continue with her antiplatelets ?She was supposed to wear Holter monitor after her last admission after she was transferred to [facility] but that does not appear to have occurred current telemetry does not indicate A-fib however given the presence of multiple infarcts will likely need an event monitor on discharge ? Permissive hypertension ? Will not repeat an echo she had 1 in May with a normal EF of 65% and severe mitral valve stenosis, her PASP was 45 to 50 mmHg and the bubble study was negative ? Urine culture with no growth DVT: SCDs Charges/Coding Visit Charges Inpatient E&M: 80300 Subs Hosp L2 08/16/23 1118 <Electronically signed by Mukul Franco MD> Cosigner Signature (if applicable): CC: ~ Signed [facility] Work Phone: 1(808) 117-436601-19-2024 Consult note Author Swati Lobo [facility] August 15, 2023 7:18pm Note Date/Time August 15, 2023 7 :15pm [facility] Medical Records Department [address] [place] [address] Consultation - Neurology 08/15/23 1855 MR#: [id number] Acct: [id number] Name: LASHON TRACEY Rep #:[id number] : 1940 83 From: Swati Lobo MD PCP: Dr. Mitul Rutherford MD Status:ADM IN Location: [place] [place] [id number]- Assessment and Plan: Stroke Assessment/Plan LASHON TRACEY is a 83 F with a history of stroke who presents for evaluation of left facial droop, left hemiparesis, slurred speech for the last 3 days. She is on DAPT at home and compliant. Not a candidate for thrombolysis as out of thewindow or thrombectomy as no LVO Neurological examination shows left hemiparesis. 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 MRI: Subacute infarcts of the periventricular white matter of the right parietal lobe. Recent TTE: EF 65% Recurrent stroke - cryptogenic in etiology Recommend Continue DAPT Continue statin to keep LDL <70 Please obtain HbA1C 30 day Event monitor upon discharge for Afib. 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 i spent 72 min in evaluation and management of this patient HPI Consult Data Date of Consult: 08/15/23 HPI Narrative HPI Narrative: LASHON TRACEY, is a 83 F who presents who presents with strokelike symptoms. three days ago she attempted to walked to the bathroom to try to take a shower when her left leg was weak and gave out on her. She was on the floor in her bathroom until around 4 PM when her son came over and helped her back up into the recliner. She was noted to have left facial droop when he checked on her at4 PM and was weak on the left side. She had worsening of her symptoms yesteradymorning and was ultimately brought to the emergency room. She history of 2 prior strokes (no residual deficits, 1 cerebellar in 1 in the right frontal territory for family). Patient was home alone. Not a candidate for thrombolysis as outside the time window. [facility] Medical History (Updated 08/14/23 @ 16:[address] Mukul Franco MD) Conjunctivitis, right eye CVA (cerebral vascular accident) History of basal cell carcinoma History of rheumatic fever History of TIA (transient ischemic attack) (12/05/20) Osteoarthritis Secondary pulmonary arterial hypertension Home Medications aspirin 81 mg tablet,delayed release (Adult Aspirin Regimen) 81 mg PO DAILY HEART HEALTH 01/24/21 [History Last Taken 08/13/23] atorvastatin 40 mg tablet 40 mg PO DAILY CHOLESTEROL 08/14/23 [History Last Taken 08/12/23] clopidogrel 75 mg tablet 75 mg PO DAILY BLOOD THINNER 08/14/23 [History Last Taken 08/13/23] multivitamin (Multiple Vitamins tablet) 1 tab PO DAILY SUPPLEMENT 08/14/23 [History Last Taken 08/13/23] Allergy/AdvReac Type Severity Reaction Status Date / Time No Known Allergies Allergy Verified 07/29/23 09:14 Surgical History H/O arthroscopic knee surgery History of carpal tunnel release Social History (Updated 08/14/23 @ 14:48 by Jody Penaloza) household members: none housing: house Smoking Status: Unknown if ever smoked alcohol intake: never substance use type: does not use Vital Signs Vital Signs Vital Signs: 08/14/23 22:00 08/14/23 22:00 08/14/23 22:00 Temperature 97.8 F 97.8 F Temperature Source Temporal Temporal Pulse Rate 90 90 Pulse Strength Weak (1+) Respiratory Rate 18 18 Respiratory Effort Respiratory Depth Respiratory Pattern Blood Pressure 124/84 H 124/84 H Blood Pressure Mean 97 97 Blood Pressure Source Monitor Monitor Blood Pressure Position Semi-Fowlers Semi-Fowlers Blood Pressure Location Right Arm Right Arm Pulse Ox 95 95 Oxygen Delivery Method Room Air Room Air 08/14/23 22:00 08/15/23 02:00 08/15/23 02:00 Temperature 98.0 F 98.0 F Temperature Source Temporal Temporal Pulse Rate 80 80 Pulse Strength Respiratory Rate 18 18 Respiratory Effort Normal Non-Labored Respiratory Depth Normal Respiratory Pattern Normal Blood Pressure 141/70 H 141/70 H Blood Pressure Mean 93 93 Blood Pressure Source Monitor Monitor Blood Pressure Position Semi-Fowlers Semi-Fowlers Blood Pressure Location Right Arm Right Arm Pulse Ox 97 97 Oxygen Delivery Method Room Air Room Air Room Air 08/15/23 06:00 08/15/23 06:00 08/15/23 07:18 Temperature 98.1 F 98.1 F Temperature Source Temporal Temporal Pulse Rate 84 84 Pulse Strength Respiratory Rate 18 18 Respiratory Effort Respiratory Depth Respiratory Pattern Blood Pressure 145/65 H 145/65 H Blood Pressure Mean 91 91 Blood Pressure Source Monitor Monitor Blood Pressure Position Sitting Semi-Fowlers Blood Pressure Location Right Arm Pulse Ox 94 94 97 Oxygen Delivery Method Room Air Room Air Room Air 08/15/23 07:40 08/15/23 11:39 08/15/23 07:55 Temperature 98.4 F 98.4 F Temperature Source Oral Oral Pulse Rate 87 89 Pulse Strength Respiratory Rate 16 16 Respiratory Effort Normal Non-Labored Respiratory Depth Normal Respiratory Pattern Normal Blood Pressure 139/69 H 132/64 H Blood Pressure Mean 92 86 Blood Pressure Source Monitor Monitor Blood Pressure Position Semi-Fowlers Semi-Fowlers Blood Pressure Location Left Arm Left Arm Pulse Ox 97 95 Oxygen Delivery Method Room Air Room Air Room Air 08/15/23 08:00 08/15/23 15:37 08/15/23 15:30 Temperature 98.3 F Temperature Source Oral Pulse Rate 80 Pulse Strength Weak (1+) Respiratory Rate 16 Respiratory Effort Normal Non-Labored Respiratory Depth Normal Respiratory Pattern Normal Blood Pressure 127/66 H Blood Pressure Mean 86 Blood Pressure Source Monitor Blood Pressure Position Semi-Fowlers Blood Pressure Location Left Arm Pulse Ox 96 Oxygen Delivery Method Room Air Room Air Weight Weight: 74.1 kg Body Mass Index (BMI) 30.9 NIHSS NIHSS Nursing Documentation NIHSS Nursing Documentation: NIH Stroke Scale Start: 08/14/23 09:19 Freq: Status: Discharge Protocol: Activity Type Activity Date Activity User E-sign Co-sign Detail Recorded Client Recorded Date Recorded By Document 08/14/23 10:19 HO Desktop 08/14/23 10:45 HO 08/14/23 10:19 NIH Stroke Scale [NIHSS] A score of 0 is normal or asymptomatic . Total possible score is 42. Inpatient: RN or Physician to activate a stroke alert for onset of new stroke symptoms or with NIHSS increase >/= 3 points. Following change in neurological status, NIHSS will be performed per physician order or more frequently PRN. -1b. LOC Questions Answers BOTH questions correctly. -1c. LOC Commands Performs both tasks correctly . -2. Best Gaze Normal -3. Visual No visual loss -4. Facial Palsy Partial paralysis ( total or near- total paralysis of lower face) -5a. Left Arm Some effort against gravity ; -5b. Right Arm No drift; arm holds 90 (or 45 ) degrees for full 10 seconds -6a. Left Leg Some effort against gravity ; -6b. Right Leg No drift; leg holds 30-degree position for full 5 seconds -7. Limb Ataxia Absent -8. Sensory Normal; no sensory loss -9. Best Language No aphasia; normal -10. Dysarthria Mild-to- moderate dysarthria; -11. Extinction and Inattention No abnormality -Total 7 Query Text:A score of 0 is normal or asymptomatic. Total possible score is 42 . ED: Notify Physician for NIHSS increase by > / = 3 points. Inpatient: RN or Physician to activate a stroke alert for NIHSS increase of > / = 3 points. NIHSS: Ischemic Stroke/TIA Start: 08/14/23 14:04 Text: For PCU Patients: NIH and Neuro Check every 4 Status: Active hours and PRN Freq: [id number] Protocol: Activity Type Activity Date Activity User E-sign Co-sign Detail Recorded Client Recorded Date Recorded By Document 08/15/23 15:38 SS Desktop 08/15/23 15:53 SS 08/15/23 15:38 -1a. Level of Consciousness Alert; keenly responsive -1b. LOC Questions Answers BOTH questions correctly. -1c. LOC Commands Performs both tasks correctly . -2. Best Gaze Normal -3. Visual No visual loss -4. Facial Palsy Minor paralysis (flattened nasolabial fold , asymmetry on smiling) -5a. Left Arm Some effort against gravity ; -5b. Right Arm No drift; arm holds 90 (or 45 ) degrees for full 10 seconds -6a. Left Leg Some effort against gravity ; -6b. Right Leg No drift; leg holds 30-degree position for full 5 seconds -7. Limb Ataxia Present in 2 limbs -8. Sensory Normal; no sensory loss -9. Best Language No aphasia; normal -10. Dysarthria Mild-to- moderate dysarthria; -11. Extinction and Inattention No abnormality -Total 8 Query Text:A score of 0 is normal or asymptomatic. Total possible score is 42 . ED: Notify Physician for NIHSS increase by > / = 3 points. Inpatient: RN or Physician to activate a stroke alert for NIHSS increase of > / = 3 points. NIHSS 1a. Level of Consciousness: Alert; keenly responsive 1b. LOC Questions: Answers BOTH questions correctly. 1c. LOC Commands: Performs both tasks correctly. 2. Best Gaze: Normal 3. Visual: No visual loss 4. Facial Palsy: Partial paralysis (total or near-total paralysis of lower face) 5a. Left Arm: Some effort against gravity; 5b. Right Arm: No drift; arm holds 90 (or 45) degrees for full 10 seconds 6a. Left Leg: Some effort against gravity; 6b. Right Leg: No drift; leg holds 30-degree position for full 5 seconds 7. Limb Ataxia: Absent 8. Sensory: [id number] sensory loss; 9. Best Language: No aphasia; normal 10. Dysarthria: [id number] dysarthria; Total: 8 Stroke Questions a.Reviewed Inclusion/Exclusion criteria: Yes Was Patient considered for Endovascular Intervention?: No IV Thrombolytic Administered: No No contraindications from thrombolytic administration: No Physical Exam Const alert, oriented x3, no apparent distress and average body habitus HEENT normocephalic, head/scalp atraumatic and hearing grossly normal bilaterally Eyes EOMs intact bilaterally and conjunctivae normal Neck full ROM Resp normal respiratory effort Cardio no JVD GI normal to inspection, nondistended, normoactive bowel sounds Extremity normal to inspection Skin no rashes or lesions noted Neuro oriented x3 Neuro Narrative: awake, alert oriented X3 Cranial Nerves: 2-12 intact except left facial droop Motor; Moves right side well, left hemiparesis sensation: Decreased on the left side Lab / Micro Data 08/15/23 07:00 08/15/23 07:00 Labs: Laboratory Results - last 24 hr 08/15/23 07:00: WBC 6.3, RBC 3.59 L, Hgb 10.9 L, Hct 33.3 L, MCV 92.8, MCH 30.4, MCHC 32.7, RDW Std Deviation 47.6 H, RDW Coeff of Alfredo 13.8, Plt Count 419, MPV 9.2, Immature Gran % (Auto) 0.300, Neut % (Auto) 66.9, Lymph % (Auto) 24.4, [place] % (Auto) 6.2, Eos % (Auto) 1.4, Baso % (Auto) 0.8, Absolute Neuts (auto) 4.2, Absolute Lymphs (auto) 1.54, Nucleated RBC % 0, Sodium 142, Potassium 3.7, Chloride 111 H, Carbon Dioxide 27.0, Anion Gap 4 L, BUN 9, Creatinine 0.90, Estim Creat Clear Calc 42.84, Est GFR (MDRD) Af Amer 77, Est GFR (MDRD) Non-Af 63, BUN/Creatinine Ratio 10.0, Glucose 101, Calcium 8.7, Triglycerides 73, Cholesterol 146, LDL Cholesterol 82, VLDL Cholesterol 15, HDL Cholesterol 49 Rhythm Strip Rhythm Strip: Sinus Rhythm Rate: 90 Ectopy: None Imagaing Radiology Impression Brain MRI 08/14/23 14:04 IMPRESSION: 1. Involutional changes of the brain, as described above. 2. Subacute infarcts of the periventricular white matter of the right parietal lobe. 3. Acute on chronic right sphenoid and maxillary sinusitis. Electronically Signed: Reid Mendes MD at 18:39 EST , ADDENDUM: 08/14/23 1452 IMPRESSION: 1. Involutional changes of the brain, as described above. 2. Subacute infarcts of the periventricular white matter of the right parietal lobe. 3. Acute on chronic right sphenoid and maxillary sinusitis. N.B. : The above Results were Read Back by Reid Mendes MD to Jody Penaloza RN, and understanding confirmed on 08/14/2023 18:50:17 (ET). Electronically Signed: Reid Mendes MD at 18:39 EST , Active Medications Active Medications Active Medications: Current Medications Generic Name Dose Route Start Last Admin Trade Name Freq PRN Reason Stop Dose Admin Acetaminophen 650 mg 08/15/23 12:13 08/15/23 13:00 Acetaminophen 325 Mg Tablet PO 650 mg Q4H PRN PRN Administration HEADACHE/FEVER (T>100F) Aspirin 81 mg 08/15/23 08:00 08/15/23 08:33 Aspirin E.C. 81 Mg Tablet PO 81 mg DAILYCM HALLE Administration Atorvastatin Calcium 40 mg 08/14/23 22:00 08/14/23 21:58 Atorvastatin Calcium 40 Mg Tablet PO 40 mg QHS HALLE Administration Clopidogrel Bisulfate 75 mg 08/15/23 10:00 08/15/23 08:33 Clopidogrel Bisulfate 75 Mg Tablet PO 75 mg DAILY HALLE Administration Hydralazine HCl 5 mg 08/14/23 14:04 Hydralazine 20 Mg/Ml Vial IV Q30M PRN to maintain BP goals Sodium Chloride 250 mls @ 15 mls/hr 08/14/23 15:23 IV .[id number] PRN Additional IVPB Infusion Sodium Chloride 250 mls @ 15 mls/hr 08/14/23 15:23 IV .[id number] PRN Saline Flush Sodium Chloride 1,000 mls @ 75 mls/hr 08/14/23 16:10 08/15/23 18:50 IV 75 mls/hr .[id number] HALLE Administration Ceftriaxone Sodium 1 gm in 50 mls @ 100 mls/hr 08/15/23 10:00 08/15/23 10:28 Rocephin IV Infused Q24 HALLE Infusion Labetalol HCl 10 - 20 mg 08/14/23 14:04 Labetalol (Prefilled) 20 Mg/4 Ml IV Q10M PRN PRN to Maintain BP Goals Nutritional Formula (Lactose Free) 120 ml 08/15/23 14:00 08/15/23 18:47 Ensure Plus High Protein 120 Ml Liquid PO 120 ml 4X/DAY HALLE Administration Ondansetron HCl 4 mg 08/15/23 12:13 Ondansetron 4 Mg/2 Ml Vial IV Q6H PRN PRN NAUSEA Sodium Chloride 10 - 40 ml 08/14/23 15:23 0.9% Saline Lock 10 Ml Syringe IV UD PRN SALINE FLUSH 08/15/23 191 <Electronically signed by Swati Lobo MD> Cosigner Signature (if applicable): CC: Kathi Alejo; Jamal Webster; Rita Manzano; Dale Kelley; Clemencia Summers MD; Swati Lobo MD; Jorge French MD; Dr. Devan Zepeda MD; Dr. Mitul Rutherford MD; Dr. Azucena Brantley MD; Dr. Vivek Silverman MD; Dr. Buddy Arellano MD; Dr. Holger Wise DO; Dr. Dia Burrows MD; Dr. Glory Norris MD; Dr. Natalee Sandra MD; Dr. Lorenzo Connelly MD; Dr. Nabila Crane MD; Yareli Munguia DO; Jose Casey MD~ Signed [facility] Work Phone: [phone] 482-368801-19-2024 Progress note Author Mukul Franco [facility] August 15, 2023 10:52am Note Date/Time August 15, 2023 1 0:52am [facility] Medical Records Department [address] [place] [id number] Progress Note - Hospitalist 08/15/23 1050 MR#: [id number] Acct: [id number] Name: LASHON TRACEY Rep #:[id number] : 1940 83 From: Mukul lindsey MD PCP: Dr. Mitul Rutherford MD Status:ADM JONATHON Location: [place] [address] Subjective Subjective Continues to have a left facial droop and left-sided weakness MRI with subacute right periventricular white matter lesions in the parietal lobe Objective Data Objective Data Vital Signs: Vital Signs Temp Pulse Resp BP Pulse Ox O2 Del Method 98.4 F 87 16 139/69 H 97 Room Air 01/19/24 07:40 08/15/23 07:40 08/15/23 07:40 08/15/23 07:40 08/15/23 07:40 08/15/23 07:40 Oxygen Delivery Method Room Air Weight: 163 lb 5.8 oz Body Mass Index (BMI) 30.9 Intake & Output: Intake and Output for Last 24 Hours 08/14/23 08/15/23 08/16/23 03:59 03:59 03:59 Intake Total 1052.5 / 1052.5 1427.5 / 1427.5 Balance 1052.5 / 1052.5 1427.5 / 1427.5 Lab / Micro Data 08/15/23 07:00 08/15/23 07:00 Labs: Laboratory Results - last 24 hr 08/14/23 11:26: Urine Color Straw, Urine Clarity Sl. Cloudy, Urine pH 8.0, Ur Specific Marissa 1.015, Urine Protein Negative, Urine Glucose (UA) Normal, UrineKetones Negative, Urine Occult Blood Negative, Urine Nitrite Negative, Urine Bilirubin Negative, Urine Urobilinogen Normal, Ur Leukocyte Esterase 500 H, Urine RBC 0 SEEN, Urine WBC 10-25 SEEN, Ur Squamous Epith Cells 5-10 SEEN, UrineBacteria 2+, Urine Mucus 0 SEEN 08/15/23 07:00: WBC 6.3, RBC 3.59 L, Hgb 10.9 L, Hct 33.3 L, MCV 92.8, MCH 30.4,MCHC 32.7, RDW Std Deviation 47.6 H, RDW Coeff of Alfredo 13.8, Plt Count 419, MPV 9.2, Immature Gran % (Auto) 0.300, Neut % (Auto) 66.9, Lymph % (Auto) 24.4, [place]% (Auto) 6.2, Eos % (Auto) 1.4, Baso % (Auto) 0.8, Absolute Neuts (auto) 4.2, Absolute Lymphs (auto) 1.54, Nucleated RBC % 0, Sodium 142, Potassium 3.7, Chloride 111 H, Carbon Dioxide 27.0, Anion Gap 4 L, BUN 9, Creatinine 0.90, Estim Creat Clear Calc 42.84, Est GFR (MDRD) Af Amer 77, Est GFR (MDRD) Non-Af 63, BUN/Creatinine Ratio 10.0, Glucose 101, Calcium 8.7, Triglycerides 73, Cholesterol 146, LDL Cholesterol 82, VLDL Cholesterol 15, HDL Cholesterol 49 Radiography Diagnostic Testing: Radiology Impression Chest X-Ray 08/14/23 09:41 IMPRESSION: Right basilar atelectasis and/or pneumonia, recommend follow-up chest radiograph in 6-8 weeks to assess for resolution. Electronically Signed: Minnie Loo MD at 10:43 EST , Head CTA 08/14/23 10:52 IMPRESSION: 1. No evidence of intracranial great vessel stenosis. 2. Persistent nonvisualization of the left PICA. Electronically Signed: Tanmay Kurtz MD at 12:00 EST , Brain MRI 08/14/23 14:04 IMPRESSION: 1. Involutional changes of the brain, as described above. 2. Subacute infarcts of the periventricular white matter of the right parietal lobe. 3. Acute on chronic right sphenoid and maxillary sinusitis. Electronically Signed: Reid Mendes MD at 18:39 EST , ADDENDUM: 08/14/23 1857 IMPRESSION: 1. Involutional changes of the brain, as described above. 2. Subacute infarcts of the periventricular white matter of the right parietal lobe. 3. Acute on chronic right sphenoid and maxillary sinusitis. N.B. : The above Results were Read Back by Reid Mendes MD to Jody Penaloza RN, and understanding confirmed on 08/14/2023 18:50:17 (ET). Electronically Signed: Reid Mendes MD at 18:39 EST , Rhythm Strip Rhythm Strip: Sinus Rhythm Rate: 90 Ectopy: None Physical Exam Narrative General: Alert, Oriented x3, Cooperative, No apparent distress HEENT: Atraumatic, PERRLA, EOMI, Normocephalic Oral: Moist Mucosa Neck: Supple, No JVD Lungs: Diminished, Normal air movement, No rhonchi, No wheeze, No rales Cardiovascular: Regular rate, Regular Rhythm, Normal S1, Normal S2, No murmurs Abdomen: Soft, Non Tender, Non-Distended, No Hepato-splenomegaly Extremities: No edema, Capillary Refill Less than 3 Seconds Skin: No rashes, No breakdown Musculoskeletal: No Tenderness to Palpation of Joints or Extremities Neurological: Left facial droop, left upper and left lower extremity weakness Psych/Mental Status: Flat Assessment & Plan Assessment/Plan (1) CVA (cerebral vascular accident): PLAN: Plan 1. CVA with possible UTI ? She has had 2 previous strokes 1 cerebellar is the most recent and had to be transferred to a tertiary center as there is a concern for vertebral artery thrombus though family states no intervention was done the outside hospital and after discharge she had no residual deficits ?With her other stroke she did not have any left facial droop or left-sided weakness ? She is already on aspirin and Plavix as well as Lipitor will continue with telemetry ? MRI with multiple subacute infarcts in the periventricular white matter of theright parietal lobe, will consult [place] [facility] and continue with her antiplatelets ?She was supposed to wear Holter monitor after her last admission after she was transferred to [facility] but that does not appear to have occurred current telemetry does not indicate A-fib however given the presence of multiple infarcts will likely need an event monitor on discharge ? Permissive hypertension ? Will not repeat an echo she had 1 in May with a normal EF of 65% and severe mitral valve stenosis, her PASP was 45 to 50 mmHg and the bubble study was negative ? Urine culture is pending will continue with Rocephin as well as IV fluids for mildly elevated CK DVT: SCDs Charges/Coding Visit Charges Inpatient E&M: 78584 Subs Hosp L2 08/15/23 1052 <Electronically signed by Mukul Franco MD> Cosigner Signature (if applicable): CC: ~ Signed [facility] Work Phone: 1([phone] 844-331201-18-2024 History and physical note Author Mukul Franco [facility] August 14, 2023 4:18pm Note Date/Time August 14, 2023 4 :09pm [facility] Medical Records Department [address] [place] [address] H&P Exam - Hospitalist 08/14/23 1606 MR#: [id number] Acct: [id number] Name: LASHON TRACEY Rep #:[id number] : 1940 83 From: Mukul lindsey MD PCP: Dr. Mitul Rutherford MD Status:ADM JONATHON Location: [place] [address] HPI - General General Date of Admission: 08/14/23 HPI Narrative LASHON TRACEY, is a 83 F who presents to the hospital 24 hours after what appears to be a stroke. She was very hesitant to come back because she is slightly apathetic about her care. She has had multiple strokes recently her most recent was in May which should be transferred to a tertiary center forthe possibility of a thrombus in her vertebral arteries that she had a cerebellar stroke at that time. Wanted mission to the ER today she has noted tohave a left facial droop with a slight elevation in her CK secondary to being onthe floor for a few hours before her son found her yesterday. She refused to come to the ED yesterday and family made her come in today. She notes that she has been having a cough for several weeks and that has resolved but then also noticed foul-smelling urine though she says it has gotten a little bit better. UA in the ER shows a 500 leukocyte esterase with 2+ bacteria. She was given a dose of Rocephin in the ER [facility] Medical History (Updated 08/14/23 @ 16:[address] Mukul Franco MD) Conjunctivitis, right eye CVA (cerebral vascular accident) History of basal cell carcinoma History of rheumatic fever History of TIA (transient ischemic attack) (12/05/20) Osteoarthritis Secondary pulmonary arterial hypertension Home Medications aspirin 81 mg tablet,delayed release (Adult Aspirin Regimen) 81 mg PO DAILY HEART HEALTH 01/24/21 [History Last Taken 08/13/23] atorvastatin 40 mg tablet 40 mg PO DAILY CHOLESTEROL 08/14/23 [History Last Taken 08/12/23] clopidogrel 75 mg tablet 75 mg PO DAILY BLOOD THINNER 08/14/23 [History Last Taken 08/13/23] multivitamin (Multiple Vitamins tablet) 1 tab PO DAILY SUPPLEMENT 08/14/23 [History Last Taken 08/13/23] Allergy/AdvReac Type Severity Reaction Status Date / Time No Known Allergies Allergy Verified 07/29/23 09:14 Surgical History H/O arthroscopic knee surgery History of carpal tunnel release Social History (Updated 08/14/23 @ 14:48 by Jody Penaloza) household members: none housing: house Smoking Status: Never smoker alcohol intake: never substance use type: does not use ROS Constitutional Constitutional: Denies chills, fatigue, fever(s) or malaise Eyes Eyes: Denies blurry vision ENT HEENT: Denies headache(s) or nasal discharge Cardiovascular Cardiovascular: Denies chest pain, dyspnea on exertion or syncope Respiratory/Chest Respiratory/Chest: Denies cough, shortness of breath at rest or shortness of breath with exertion Gastrointestinal Gastrointestinal: Denies constipation, diarrhea, nausea or vomiting Genitourinary Genitourinary: Denies dysuria Neurologic Neurologic: Reports focal weakness; Denies numbness or tremor(s) Psychiatric Psychiatric: Denies anxiety or depression Vital Signs Vital Signs Vital Signs: 08/14/23 09:13 08/14/23 10:41 08/14/23 12:30 Temperature 97.1 F L Temperature Source Temporal Pulse Rate 96 84 81 Respiratory Rate 19 H 16 16 Blood Pressure 144/65 H 141/70 H 118/54 L Blood Pressure Mean 91 93 75 Blood Pressure Source Blood Pressure Position Blood Pressure Location Pulse Ox 97 100 96 Oxygen Delivery Method Room Air Room Air Room Air 08/14/23 12:51 08/14/23 14:10 Temperature 97.9 F 98 F Temperature Source Oral Pulse Rate 89 90 Respiratory Rate 15 16 Blood Pressure 118/54 L 149/70 H Blood Pressure Mean 75 96 Blood Pressure Source Monitor Blood Pressure Position Semi-Fowlers Blood Pressure Location Right Arm Pulse Ox 99 98 Oxygen Delivery Method Room Air Weight Weight: 163 lb 5.8 oz Body Mass Index (BMI) 30.9 Physical Exam Narrative General: Alert, Oriented x3, Cooperative, No apparent distress HEENT: Atraumatic, PERRLA, EOMI, Normocephalic Oral: Moist Mucosa Neck: Supple, No JVD Lungs: Diminished, Normal air movement, No rhonchi, No wheeze, No rales Cardiovascular: Regular rate, Regular Rhythm, Normal S1, Normal S2, No murmurs Abdomen: Soft, Non Tender, Non-Distended, No Hepato-splenomegaly Extremities: No edema, Capillary Refill Less than 3 Seconds Skin: No rashes, No breakdown Musculoskeletal: No Tenderness to Palpation of Joints or Extremities Neurological: Left facial droop, left upper and left lower extremity weakness Psych/Mental Status: Flat Results Lab / Micro Data 08/14/23 09:53 08/14/23 09:53 Labs: Laboratory Results - last 24 hr 08/14/23 09:53: WBC 9.3, RBC 4.09 L, Hgb 12.2, Hct 38.4, MCV 93.9, MCH 29.8, MCHC 31.8 L, RDW Std Deviation 46.2 H, RDW Coeff of Alfredo 13.5, Plt Count 498 H, MPV 9.3, Immature Gran % (Auto) 0.200, Neut % (Auto) 78.9 H, Lymph % (Auto) 14.2L, [place] % (Auto) 5.9, Eos % (Auto) 0.4, Baso % (Auto) 0.4, Absolute Neuts (auto)7.4, Absolute Lymphs (auto) 1.33, Nucleated RBC % 0, PT 15.1 H, INR 1.2, APTT 29.5, Sodium 143, Potassium 3.9, Chloride 108 H, Carbon Dioxide 32.0, Anion Gap 3 L, BUN 15, Creatinine 1.02, Estim Creat Clear Calc 37.99, Est GFR (MDRD) Af Amer 66, Est GFR (MDRD) Non-Af 55 L, BUN/Creatinine Ratio 14.7, Glucose 118 H, Calcium 9.1, Total Creatine Kinase 581 H 08/14/23 11:26: Urine Color Straw, Urine Clarity Sl. Cloudy, Urine pH 8.0, Ur Specific Marissa 1.015, Urine Protein Negative, Urine Glucose (UA) Normal, UrineKetones Negative, Urine Occult Blood Negative, Urine Nitrite Negative, Urine Bilirubin Negative, Urine Urobilinogen Normal, Ur Leukocyte Esterase 500 H, Urine RBC 0 SEEN, Urine WBC 10-25 SEEN, Ur Squamous Epith Cells 5-10 SEEN, UrineBacteria 2+, Urine Mucus 0 SEEN Rhythm Strip Rhythm Strip: Sinus Rhythm Rate: 90 Ectopy: None Imagaing Radiology Impression Brain CT 08/14/23 09:40 IMPRESSION: No acute intracranial process. Foci of encephalomalacia within the right frontal lobe and left cerebellum consistent with old infarcts. Partial opacification of the frontal, ethmoid, sphenoid and right maxillary sinuses consistent with sinusitis. Electronically Signed: Minnie Loo MD at 10:37 EST , Chest X-Ray 08/14/23 09:41 IMPRESSION: Right basilar atelectasis and/or pneumonia, recommend follow-up chest radiograph in 6-8 weeks to assess for resolution. Electronically Signed: Minnie Loo MD at 10:43 EST , Head CTA 08/14/23 10:52 IMPRESSION: 1. No evidence of intracranial great vessel stenosis. 2. Persistent nonvisualization of the left PICA. Electronically Signed: Tanmay Kurtz MD at 12:00 EST , Assessment & Plan Assessment/Plan (1) CVA (cerebral vascular accident): PLAN: Plan 1. CVA with possible UTI ? She has had 2 previous strokes 1 cerebellar is the most recent and had to be transferred to a tertiary center as there is a concern for vertebral artery thrombus though family states no intervention was done the outside hospital and after discharge she had no residual deficits ?With her other stroke she did not have any left facial droop or left-sided weakness ? She is already on aspirin and Plavix as well as Lipitor will continue with telemetry ? Will obtain an MRI ? Will discuss with her in the next day or 2 about possible medications for mental health as she appears withdrawn and apathetic about her wellbeing and herown care ? Permissive hypertension ? Will not repeat an echo she had 1 in May with a normal EF of 65% and severe mitral valve stenosis, her PASP was 45 to 50 mmHg and the bubble study was negative ? Urine culture is pending will continue with Rocephin as well as IV fluids for mildly elevated CK DVT: SCDs 75 minutes was spent on direct patient care, including documentation as well as chart review and collaboration with colleagues Charges/Coding Visit Charges Inpatient E&M: 07871 Init Hosp L3 08/14/23 1618 <Electronically signed by Mukul Franco MD> Cosigner Signature (if applicable): CC: Dr. Mitul Rutherford MD; Dr. Mukul Franco MD~ Signed [facility] Work Phone: [phone] [phone] Discharge summary Author Princess Bowling [facility] August 14, 2023 12:30pm Note Date/Time August 14, 2023 1 1:01am [facility] Medical Records Department [address] [place] [address] Emergency Department Summary 08/14/23 MR#: [id number] Acct: [id number] Name: LASHON TRACEY Rep #:[id number] : 1940 83 From: Princess Barfield PCP: Dr. Mitul Rutherford MD Status:REG ER Location: ED HPI History of Present Illness Chief Complaint: Neuro S/Sx Informant: patient and family Narrative Narrative: Patient is a 83-year-old female presenting from home via EMS for concern of strokelike symptoms. Patient actually developed symptoms around 8:30 AM yesterday morning. She notes she woke up around 4 AM but did not get out of beduntil around 8-onelia. She walked to the bathroom to try to take a shower when herleft leg was weak and gave out on her. She then lay on the floor in her bathroom until around 4 PM when her son came over and helped her back up into the recliner. She was noted to have left facial droop when he checked on her at4 PM and was weak on the left side and he was concerned she was having a stroke however patient refused transport. He stayed the night with her. She had worsening of her symptoms this morning and was ultimately brought to the emergency room. Did not take her normal Plavix or aspirin this morning. 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 Patient was home alone. Patient notesthat she had a cough since around July 16 but that has resolved recently. Denies any recent fever or chills. Denies any chest pain, shortness of breath difficulty breathing. Has had some nausea since last night but is not had any vomiting. Denies any injuries associated with lowered her self to the ground yesterday. No other complaints or concerns at this time. [facility] Medical History Conjunctivitis, right eye CVA (cerebral vascular accident) History of basal cell carcinoma History of rheumatic fever History of TIA (transient ischemic attack) (12/05/20) Osteoarthritis Secondary pulmonary arterial hypertension Home Medications aspirin 81 mg tablet,delayed release (Adult Aspirin Regimen) 81 mg PO DAILY HEART HEALTH 01/24/21 [History Last Taken 08/13/23] atorvastatin 40 mg tablet 40 mg PO DAILY CHOLESTEROL 08/14/23 [History Last Taken 08/12/23] clopidogrel 75 mg tablet 75 mg PO DAILY BLOOD THINNER 08/14/23 [History Last Taken 08/13/23] multivitamin (Multiple Vitamins tablet) 1 tab PO DAILY SUPPLEMENT 08/14/23 [History Last Taken 08/13/23] Allergy/AdvReac Type Severity Reaction Status Date / Time No Known Allergies Allergy Verified 07/29/23 09:14 Surgical History H/O arthroscopic knee surgery History of carpal tunnel release Social History Smoking Status: Never smoker alcohol intake: never substance use type: does not use ROS ROS ED Constitutional Constitutional ED: Denies chills or fever(s) Eyes Eyes: Denies change in vision or diplopia ENT ENT ED: Denies sore throat Cardiovascular Cardiovascular: Denies chest pain Respiratory/Chest Respiratory/Chest: Denies cough Gastrointestinal Gastrointestinal: Denies nausea or vomiting Musculoskeletal Musculoskeletal: Denies arthralgias or myalgias Integumentary Denies rash Neurologic Neurologic: Reports weakness; Denies headache(s) or paresthesias Psychiatric Psychiatric: Denies anxiety Hematologic/Lymphatic Hematologic/Lymphatic: Denies easy bleeding or easy bruising EXAM Physical Exam Const Vital Signs: 08/14/23 09:13 08/14/23 10:41 Temperature 97.1 F L Temperature Source Temporal Pulse Rate 96 84 Respiratory Rate 19 H 16 Blood Pressure 144/65 H 141/70 H Blood Pressure Mean 91 93 Pulse Ox 97 100 Oxygen Delivery Method Room Air Room Air Positive well nourished and well developed General Appearance ED: well developed and NAD HEENT Reports TM's clear and moist mucous membranes atraumatic Tympanic Membrane ED: Yes TM's clear Eyes PERRL and EOMs intact bilaterally Neck supple Chest Wall inspection of chest normal and palpation of chest normal Resp normal respiratory effort and clear to auscultation bilaterally Cardio no murmurs Rate: regular rate GI normal to inspection, nondistended, normoactive bowel sounds and soft to palpation Extremity normal to inspection General Extremety ED: Negative for deformity or edema General Extremity: Negative for deformity or edema Neuro oriented x3 Neuro Narrative: Left facial droop with weakness of the left extremities (lower extremity more pronounced in upper extremity). Uday Coma Scale: document GCS findings Spontaneous Obeys Commands Oriented 15 Sensorium / Orientation: alert Speech: speech normal Gait (Neuro): Negative for normal gait Psych mental status grossly normal Skin no wounds Lesions: no lesions NIHSS NIHSS Initial: 1a Level of Consciousness: 0 1b LOC Questions (Score 2 if aphasic/stupor): 0 1c LOC Commands (Only score 1st attempt): 0 2 Best Gaze (If aphasic, use reflexive mvmts.): 0 3 Visual: 0 4 Facial Palsy: 2 5 Motor Arm Right (UN = amputation/fusion): 0 5 Motor Arm Left: 1 6 Motor Leg Right: 0 6 Motor Leg Left: 2 7 Limb ataxia (Only + if out of proportion): 0 8 Sensory (Aphasia/stupor=0 or 1, coma=2): 0 9 Best Language: 0 10 Dysarthria (mute, coma=2, intubated=UN): 0 11 Extinction and Inattention (only scored if +): 1 Total Score: 6 MDM MDM MDM Narrative Medical decision making narrative: Patient evaluated stroke symptoms. Last known well was 24 hours ago so she is not a TNK candidate and a stroke alert is not called. Patient laid on the ground differential also includes rhabdomyolysis. CT of the brain ordered to rule out intracranial hemorrhage or any signs of mass or cerebral edema. CT of the brain does not show any acute intracranial process but does show encephalomalacia consistent with prior stroke. Workup largely normal however she does have a mild elevation of her CK (581) however her creatinine is at her baseline so she does not have any signs of a secondary ROGE. Started on maintenance fluid at 125 an hour. Will order CTA to make sure she does not haveany large vessel occlusion acutely given that her kidney function is at baseline. Urinalysis is still pending however will likely need to be rehydrated patient isrequesting to not have a straight cath. Patient be admitted for further evaluation of the stroke symptom as well as debility as she is not able to adequately take care of her self/ambulate at this time. Patient and family agreeable with plan of care. Patient is given a full dose aspirin in the emergency room. Chest x-ray shows questionable atelectasis versus infiltrate of the right basilar area. Given that she does not have a leukocytosis, fever and her cough has been improving will defer antibiotics at this time. X-ray reviewed by myself as well as radiology. CTA is negative for acute LVO. Does have a persistent nonvisualization of the left PICA. Will be admitted to the hospitalist service. Urinalysis is concerning for infection however it is mildly contaminated as well. Will send for culture and give a dose of IV Rocephin. It is possible that her urinary tract infection could be causing worsening of prior stroke symptoms/encephalomalacia however cannot exclude an acute stroke at this time I do think she benefit from a repeat MRI. History & Record Review Discussion w/independent historian: Patient and Family Additional record(s) reviewed:: Prior inpatient record (prior admission for TIA associated with cerebellar symptoms) Lab Data Attestation: I reviewed the patient's lab results. Labs: Laboratory Results - last 24 hr 08/14/23 08/14/23 09:53 11:26 WBC 9.3 RBC 4.09 L Hgb 12.2 Hct 38.4 MCV 93.9 MCH 29.8 MCHC 31.8 L RDW Std Deviation 46.2 H RDW Coeff of Alfredo 13.5 Plt Count 498 H MPV 9.3 Immature Gran % (Auto) 0.200 Neut % (Auto) 78.9 H Lymph % (Auto) 14.2 L [place] % (Auto) 5.9 Eos % (Auto) 0.4 Baso % (Auto) 0.4 Absolute Neuts (auto) 7.4 Absolute Lymphs (auto) 1.33 Nucleated RBC % 0 PT 15.1 H INR 1.2 APTT 29.5 Sodium 143 Potassium 3.9 Chloride 108 H Carbon Dioxide 32.0 Anion Gap 3 L BUN 15 Creatinine 1.02 Estim Creat Clear Calc 37.99 Est GFR (MDRD) Af Amer 66 Est GFR (MDRD) Non-Af 55 L BUN/Creatinine Ratio 14.7 Glucose 118 H Calcium 9.1 Total Creatine Kinase 581 H Urine Color Straw Urine Clarity Sl. Cloudy Urine pH 8.0 Ur Specific Marissa 1.015 Urine Protein Negative Urine Glucose (UA) Normal Urine Ketones Negative Urine Occult Blood Negative Urine Nitrite Negative Urine Bilirubin Negative Urine Urobilinogen Normal Ur Leukocyte Esterase 500 H Urine RBC 0 SEEN Urine WBC 10-25 SEEN Ur Squamous Epith Cells 5-10 SEEN Urine Bacteria 2+ Urine Mucus 0 SEEN Radiography Chest X-Ray - ED: 1 View, Read by ED Physician and Read by Radiologist Diagnostic Testing: Clinical Impression(s) from Imaging Studies Brain CT 08/14/23 09:40 IMPRESSION: No acute intracranial process. Foci of encephalomalacia within the right frontal lobe and left cerebellum consistent with old infarcts. Partial opacification of the frontal, ethmoid, sphenoid and right maxillary sinuses consistent with sinusitis. Electronically Signed: Minnie Loo MD at 10:37 EST , Chest X-Ray 08/14/23 09:41 IMPRESSION: Right basilar atelectasis and/or pneumonia, recommend follow-up chest radiograph in 6-8 weeks to assess for resolution. Electronically Signed: Minnie Loo MD at 10:43 EST , Head CTA 08/14/23 10:52 IMPRESSION: 1. No evidence of intracranial great vessel stenosis. 2. Persistent nonvisualization of the left PICA. Electronically Signed: Tanmay Kurtz MD at 12:00 EST , Rhythm Strip Rhythm Strip: Sinus Rhythm Rate: 90 Ectopy: None EKG Initial EKG: Attestation: I personally reviewed and interpreted this EKG as follows: Interpretation: Sinus Rhythm Comments: Normal sinus rhythm at a rate of 90 bpm Normal axis Normal intervals Normal ST segments Low voltage QRS Management Discussion w/another healthcare provider: Hospitalist Discharge Plan Triage Chief Complaint: Neuro S/Sx ED Provider: Princess Bowling Dx/Rx/DC Orders Clinical Impression: Facial droop, Acute left-sided weakness, Acute UTI, Inability to walk Prescriptions: No Action aspirin [Adult Aspirin Regimen] 81 mg tablet,delayed release (DR/EC) 81 mg PO DAILY Hold Instructions: Ordered atorvastatin 40 mg tablet 40 mg PO DAILY clopidogrel 75 mg tablet 75 mg PO DAILY multivitamin [Multiple Vitamins] Tablet 1 tab PO DAILY Primary Care Provider: Mitul Rutherford Referrals: Mitul Rutherford MD [Primary Care Provider] - Disposition Disposition: Acute Care Hospital [facility] Capacity 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 Next of kin: [place] law dictates a PRIORITY LIST for identifying legal decision-maker/legal next of kin in the following order (LNOK): 1st: The patient?s legal guardian, if any 2nd: The patient's spouse (if status is questionable, consult Risk Management) 3rd: The patient?s adult child(orestes) (majority, if multiple children) 4th: The patient?s parents 5th: The patient?s adult siblings (majority, if multiple children siblings) What to do if you have Problems For any increased pain, shortness of breath, bleeding, nausea or vomiting, chestpain, or any unexpected problems, contact your Primary Care Provider. Call [facility] ([phone]) or report to the closest Emergency Room. Call 911 if necessary. 08/14/23 1230 <Electronically signed by Princess Bowling DO> Cosigner Signature (if applicable): CC: Dr. Mitul Rutherford MD ~ Signed [facility] Work Phone: [phone] Discharge summary Author [facility] August 14, 2023 12:30pm Note Date/Time August 14, 2023 1 1:01am [facility] Medical Records Department [address] [place] [address] Emergency Department Summary 08/14/23 MR#: [id number] Acct: [id number] Name: LASHON TRACEY Rep #:[id number] : 1940 83 From: Princess Barfield PCP: Dr. Mitul Rutherford MD Status:REG ER Location: ED HPI History of Present Illness Chief Complaint: Neuro S/Sx Informant: patient and family Narrative Narrative: Patient is a 83-year-old female presenting from home via EMS for concern of strokelike symptoms. Patient actually developed symptoms around 8:30 AM yesterday morning. She notes she woke up around 4 AM but did not get out of beduntil around 8-onelia. She walked to the bathroom to try to take a shower when herleft leg was weak and gave out on her. She then lay on the floor in her bathroom until around 4 PM when her son came over and helped her back up into the recliner. She was noted to have left facial droop when he checked on her at4 PM and was weak on the left side and he was concerned she was having a stroke however patient refused transport. He stayed the night with her. She had worsening of her symptoms this morning and was ultimately brought to the emergency room. Did not take her normal Plavix or aspirin this morning. 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 Patient was home alone. Patient notesthat she had a cough since around July 16 but that has resolved recently. Denies any recent fever or chills. Denies any chest pain, shortness of breath difficulty breathing. Has had some nausea since last night but is not had any vomiting. Denies any injuries associated with lowered her self to the ground yesterday. No other complaints or concerns at this time. [facility] Medical History Conjunctivitis, right eye CVA (cerebral vascular accident) History of basal cell carcinoma History of rheumatic fever History of TIA (transient ischemic attack) (12/05/20) Osteoarthritis Secondary pulmonary arterial hypertension Home Medications aspirin 81 mg tablet,delayed release (Adult Aspirin Regimen) 81 mg PO DAILY HEART HEALTH 01/24/21 [History Last Taken 08/13/23] atorvastatin 40 mg tablet 40 mg PO DAILY CHOLESTEROL 08/14/23 [History Last Taken 08/12/23] clopidogrel 75 mg tablet 75 mg PO DAILY BLOOD THINNER 08/14/23 [History Last Taken 08/13/23] multivitamin (Multiple Vitamins tablet) 1 tab PO DAILY SUPPLEMENT 08/14/23 [History Last Taken 08/13/23] Allergy/AdvReac Type Severity Reaction Status Date / Time No Known Allergies Allergy Verified 07/29/23 09:14 Surgical History H/O arthroscopic knee surgery History of carpal tunnel release Social History Smoking Status: Never smoker alcohol intake: never substance use type: does not use ROS ROS ED Constitutional Constitutional ED: Denies chills or fever(s) Eyes Eyes: Denies change in vision or diplopia ENT ENT ED: Denies sore throat Cardiovascular Cardiovascular: Denies chest pain Respiratory/Chest Respiratory/Chest: Denies cough Gastrointestinal Gastrointestinal: Denies nausea or vomiting Musculoskeletal Musculoskeletal: Denies arthralgias or myalgias Integumentary Denies rash Neurologic Neurologic: Reports weakness; Denies headache(s) or paresthesias Psychiatric Psychiatric: Denies anxiety Hematologic/Lymphatic Hematologic/Lymphatic: Denies easy bleeding or easy bruising EXAM Physical Exam Const Vital Signs: 08/14/23 09:13 08/14/23 10:41 Temperature 97.1 F L Temperature Source Temporal Pulse Rate 96 84 Respiratory Rate 19 H 16 Blood Pressure 144/65 H 141/70 H Blood Pressure Mean 91 93 Pulse Ox 97 100 Oxygen Delivery Method Room Air Room Air Positive well nourished and well developed General Appearance ED: well developed and NAD HEENT Reports TM's clear and moist mucous membranes atraumatic Tympanic Membrane ED: Yes TM's clear Eyes PERRL and EOMs intact bilaterally Neck supple Chest Wall inspection of chest normal and palpation of chest normal Resp normal respiratory effort and clear to auscultation bilaterally Cardio no murmurs Rate: regular rate GI normal to inspection, nondistended, normoactive bowel sounds and soft to palpation Extremity normal to inspection General Extremety ED: Negative for deformity or edema General Extremity: Negative for deformity or edema Neuro oriented x3 Neuro Narrative: Left facial droop with weakness of the left extremities (lower extremity more pronounced in upper extremity). Hamel Coma Scale: document GCS findings Spontaneous Obeys Commands Oriented 15 Sensorium / Orientation: alert Speech: speech normal Gait (Neuro): Negative for normal gait Psych mental status grossly normal Skin no wounds Lesions: no lesions NIHSS NIHSS Initial: 1a Level of Consciousness: 0 1b LOC Questions (Score 2 if aphasic/stupor): 0 1c LOC Commands (Only score 1st attempt): 0 2 Best Gaze (If aphasic, use reflexive mvmts.): 0 3 Visual: 0 4 Facial Palsy: 2 5 Motor Arm Right (UN = amputation/fusion): 0 5 Motor Arm Left: 1 6 Motor Leg Right: 0 6 Motor Leg Left: 2 7 Limb ataxia (Only + if out of proportion): 0 8 Sensory (Aphasia/stupor=0 or 1, coma=2): 0 9 Best Language: 0 10 Dysarthria (mute, coma=2, intubated=UN): 0 11 Extinction and Inattention (only scored if +): 1 Total Score: 6 MDM MDM MDM Narrative Medical decision making narrative: Patient evaluated stroke symptoms. Last known well was 24 hours ago so she is not a TNK candidate and a stroke alert is not called. Patient laid on the ground differential also includes rhabdomyolysis. CT of the brain ordered to rule out intracranial hemorrhage or any signs of mass or cerebral edema. CT of the brain does not show any acute intracranial process but does show encephalomalacia consistent with prior stroke. Workup largely normal however she does have a mild elevation of her CK (581) however her creatinine is at her baseline so she does not have any signs of a secondary ROGE. Started on maintenance fluid at 125 an hour. Will order CTA to make sure she does not haveany large vessel occlusion acutely given that her kidney function is at baseline. Urinalysis is still pending however will likely need to be rehydrated patient isrequesting to not have a straight cath. Patient be admitted for further evaluation of the stroke symptom as well as debility as she is not able to adequately take care of her self/ambulate at this time. Patient and family agreeable with plan of care. Patient is given a full dose aspirin in the emergency room. Chest x-ray shows questionable atelectasis versus infiltrate of the right basilar area. Given that she does not have a leukocytosis, fever and her cough has been improving will defer antibiotics at this time. X-ray reviewed by myself as well as radiology. CTA is negative for acute LVO. Does have a persistent nonvisualization of the left PICA. Will be admitted to the hospitalist service. Urinalysis is concerning for infection however it is mildly contaminated as well. Will send for culture and give a dose of IV Rocephin. It is possible that her urinary tract infection could be causing worsening of prior stroke symptoms/encephalomalacia however cannot exclude an acute stroke at this time I do think she benefit from a repeat MRI. History & Record Review Discussion w/independent historian: Patient and Family Additional record(s) reviewed:: Prior inpatient record (prior admission for TIA associated with cerebellar symptoms) Lab Data Attestation: I reviewed the patient's lab results. Labs: Laboratory Results - last 24 hr 08/14/23 08/14/23 09:53 11:26 WBC 9.3 RBC 4.09 L Hgb 12.2 Hct 38.4 MCV 93.9 MCH 29.8 MCHC 31.8 L RDW Std Deviation 46.2 H RDW Coeff of Alfredo 13.5 Plt Count 498 H MPV 9.3 Immature Gran % (Auto) 0.200 Neut % (Auto) 78.9 H Lymph % (Auto) 14.2 L [place] % (Auto) 5.9 Eos % (Auto) 0.4 Baso % (Auto) 0.4 Absolute Neuts (auto) 7.4 Absolute Lymphs (auto) 1.33 Nucleated RBC % 0 PT 15.1 H INR 1.2 APTT 29.5 Sodium 143 Potassium 3.9 Chloride 108 H Carbon Dioxide 32.0 Anion Gap 3 L BUN 15 Creatinine 1.02 Estim Creat Clear Calc 37.99 Est GFR (MDRD) Af Amer 66 Est GFR (MDRD) Non-Af 55 L BUN/Creatinine Ratio 14.7 Glucose 118 H Calcium 9.1 Total Creatine Kinase 581 H Urine Color Straw Urine Clarity Sl. Cloudy Urine pH 8.0 Ur Specific Marissa 1.015 Urine Protein Negative Urine Glucose (UA) Normal Urine Ketones Negative Urine Occult Blood Negative Urine Nitrite Negative Urine Bilirubin Negative Urine Urobilinogen Normal Ur Leukocyte Esterase 500 H Urine RBC 0 SEEN Urine WBC 10-25 SEEN Ur Squamous Epith Cells 5-10 SEEN Urine Bacteria 2+ Urine Mucus 0 SEEN Radiography Chest X-Ray - ED: 1 View, Read by ED Physician and Read by Radiologist Diagnostic Testing: Clinical Impression(s) from Imaging Studies Brain CT 08/14/23 09:40 IMPRESSION: No acute intracranial process. Foci of encephalomalacia within the right frontal lobe and left cerebellum consistent with old infarcts. Partial opacification of the frontal, ethmoid, sphenoid and right maxillary sinuses consistent with sinusitis. Electronically Signed: Minnie Loo MD at 10:37 EST , Chest X-Ray 08/14/23 09:41 IMPRESSION: Right basilar atelectasis and/or pneumonia, recommend follow-up chest radiograph in 6-8 weeks to assess for resolution. Electronically Signed: Minnie Loo MD at 10:43 EST , Head CTA 08/14/23 10:52 IMPRESSION: 1. No evidence of intracranial great vessel stenosis. 2. Persistent nonvisualization of the left PICA. Electronically Signed: Tanmay Kurtz MD at 12:00 EST , Rhythm Strip Rhythm Strip: Sinus Rhythm Rate: 90 Ectopy: None EKG Initial EKG: Attestation: I personally reviewed and interpreted this EKG as follows: Interpretation: Sinus Rhythm Comments: Normal sinus rhythm at a rate of 90 bpm Normal axis Normal intervals Normal ST segments Low voltage QRS Management Discussion w/another healthcare provider: Hospitalist Discharge Plan Triage Chief Complaint: Neuro S/Sx ED Provider: Princess Bowling Dx/Rx/DC Orders Clinical Impression: Facial droop, Acute left-sided weakness, Acute UTI, Inability to walk Prescriptions: No Action aspirin [Adult Aspirin Regimen] 81 mg tablet,delayed release (DR/EC) 81 mg PO DAILY Hold Instructions: Ordered atorvastatin 40 mg tablet 40 mg PO DAILY clopidogrel 75 mg tablet 75 mg PO DAILY multivitamin [Multiple Vitamins] Tablet 1 tab PO DAILY Primary Care Provider: Mitul Rutherford Referrals: Mitul Rutherford MD [Primary Care Provider] - Disposition Disposition: [facility] Capacity 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 Next of kin: [place] law dictates a PRIORITY LIST for identifying legal decision-maker/legal next of kin in the following order (LNOK): 1st: The patient?s legal guardian, if any 2nd: The patient's spouse (if status is questionable, consult Risk Management) 3rd: The patient?s adult child(orestes) (majority, if multiple children) 4th: The patient?s parents 5th: The patient?s adult siblings (majority, if multiple children siblings) What to do if you have Problems For any increased pain, shortness of breath, bleeding, nausea or vomiting, chestpain, or any unexpected problems, contact your Primary Care Provider. Call [facility] ([phone]) or report to the closest Emergency Room. Call 911 if necessary. 08/14/23 1230 <Electronically signed by Princess Bowling DO> Cosigner Signature (if applicable): CC: Dr. Mitul Rutherford MD ~ Signed [facility] Work Phone: [phone]) 582-562411-15-2023 NoteHNO ID: [id number] Author: Abelino Rehman RPh Service: Pharmacy Author Type: Pharmacist Type: Plan of Care Filed: 06/11/2023 12:40 PM Note Text: DISCHARGE MEDICATION REVIEW BY PHARMACY Patient Name: Lashon Tracey Account #: Data Unavailable Admission Date: [...] mg daily Additional Neuro Recs? N/A Abelino Rehman RPh June 11, 2023 12:33 PM Pager: [phone] 06/11/2023 12:33 PM Medication List START taking [...] drug: ascorbic acid (vitamin C) WOMEN'S MULTIVITAMIN [facility]11-15-2023 NoteHNO ID: [id number] Author: Ynes Campos RN Service: Care Management Author Type: Registered Nurse Type: Care Mgt Progress Note Filed: 06/11/2023 12:21 PM Note Text: CARE MANAGEMENT DISCHARGE NOTE SERVICE DATE: June 11, 2023 SERVICE TIME: 12:20 PM Admission Date: 06/07/2023 LOS: 4 days Discharge Arrangement Discharge Arrangement: Acute Rehabilitation Facility Services Arranged Medical Services: Other: See Comment (n/a) Provider Name: [facility] Caregiver Assessment Caregiver is ready, willing and able to meet the patient's needs as recommended by the inter-professional team: No Caregiver needed Transportation Arrangements Transportation Arrangements: Car Handoff Communication: Handoff to: Other Caregiver Other Caregiver Name/Phone: RN to call report to nurse at facility Additional Information: Pt has auth to go to [facility]. The patient's family is planning to drive her there and leave the hospital at 1330. [facility] is aware that family will be driving her. SIGNATURE: Ynes Campos RN PATIENT NAME: Lashon Tracey DATE: June 11, 2023 TIME: 12:20 PM CONTACT #: [phone] NoteHNO ID: [id number] Author: Ynes Campos RN Service: Care Management Author Type: Registered Nurse Type: Care Mgt Progress Note Filed: 06/11/2023 10:57 AM Note Text: CARE MANAGEMENT PROGRESS NOTE SERVICE DATE: 06/11/2023 SERVICE TIME: 10:56 AM LOS: 4 days Needs Prior to Discharge: Ready for Discharge IMM Follow Up Copy Given: No Reason: Acute Rehab The patient has auth to go to [facility] for [place]. Her bed will be available at 1330 today. Her family plans to drive her there when ready for discharge. Will notify the attending. SIGNATURE: Ynes Campos RN PATIENT NAME: Lashon Tracey DATE: June 11, 2023 TIME: 10:56 AM PAGER/CONTACT #: [phone] 06-10-2023 NoteHNO ID: [id number] Author: Alexandria Hatfield RN Service: ? Author Type: Registered Nurse Type: Nursing Progress Note Filed: 06/10/2023 1:09 PM Note Text: Gag reflex checked and has returned. Patient okay to start oral intake per [facility]11-14-2023 NoteHNO ID: [id number] Author: Kim Sinclair MD Service: Hospital Medicine [...] 92.9 92.9 CHEM: Recent Labs 06/10/23 0507 06/09/2345306/08/23355 NA -- 141 142 K -- 4.1 3.6* CA -- 8.7 8.6 MG -- 2.0 2.2 P 3.0 2.6* 2.7 ANION -- 10 9 CHLOR -- 105 106* CO2 -- 26 27 GLUC -- 97 91 BUN -- 15 17 CREAT -- 1.14* 1.08* HEPATIC: No results for input(s): ALT, AST, TBILI, ALKPHOS, ALB, TPROT, LIPASE in the last 168 hours. URINALYSIS:No results for input(s): SPGR, UBACTERIA, LEUKEST, SSA, UWBC, URBC, UHB, UPROT, UGLUC, UKET in the last 168 hours. Invalid input(s): NITR COAG: Recent Labs 06/08/23 1320 APTT 26.3 INR 1.1 CARDIAC: No results for input(s): CKMB, CKMBP, TROPT, PBNP in the last 168 hours. Imaging: CT BRAIN WO IVCON Result Date: 06/08/2023 IMPRESSION: No significant interval change in acute left cerebellar infarct. MR-Brain without Contrast IMPORT Result Date: 06/07/2023 Images were obtained outside of [facility] OT-Brain/Head without Contrast IMPORT Result Date: 06/07/2023 Images were obtained outside of [facility] CT-CTA Head AND Neck W/ Contrast IMPORT Result Date: 06/07/2023 Images were obtained outside of [facility] Most recent EKG NSR Blood and Urine Culture: Positive Micro-30 Days No results found for the last 720 hours. Problem list Cerebellar stroke, acute (HCC) (POA: Yes) Mixed hyperlipidemia (POA: Yes) Ataxia due to acute cerebrovascular disease (POA: Yes) Class 1 obesity in adult (POA: Yes) Rheumatic mitral stenosis (POA: Yes) Hypophosphatemia (POA: Yes) Assessment and plan: Lashon Tracey is a 83 year old with PMH of h/o stroke, rheumatic fever aged 7 complicated by severe mitral stenosis. Presented to [place] ED with GOLDMAN, ataxia, and presyncope on 06/05. MRI brain showed left cerebellar infarct. Teleneurology recommended tertiary center with neurosurgery capability. Patient was monitored on NSICU. Remained stable. Transferred to [facility] 06/08/2023. # Acute left cerebellar stroke [...] - MRI brain done at [facility] 06/09. Regular diet. - PT/OT > [...] exist. SIGNATURE: Kim Sinclair MD PATIENT NAME: Lashon Tracey DATE: 06/10/2023 TIME: 1:01 [facility]11-14-2023 NoteHNO ID: [id number] Author: Ynes Campos RN Service: Care Management Author Type: Registered Nurse Type: Care Mgt Progress Note Filed: 06/10/2023 3:56 PM Note Text: CARE MANAGEMENT PROGRESS NOTE SERVICE DATE: 06/10/2023 SERVICE TIME: 12:00 PM LOS: 3 days Needs Prior to Discharge: OT/PT Evaluation;Insurance Authorization;Bed Availability;Accepting Facility;Facility or Agency Choices;Discharge Transportation [place] of Choice Given: Yes Level of Care [...] and her [facility] choice facility is [facility]. Referral was sent. If they can accept, we will start precert today once OT note is in. She wants her family to transport her to [place] if possible. Addendum: [facility] is able to accept. Precert was started. SIGNATURE: Ynes Campos RN PATIENT NAME: Lashon Tracey DATE: June 10, 2023 TIME: 11:59 AM PAGER/CONTACT #: [phone] 06-10-2023 NoteHNO ID: [id number] Author: Lei Russell MD Service: Cardiovascular Medicine Author Type: Physician Type: Plan of Care Filed: 06/10/2023 10:03 AM Note Text: DNR status to be reversed to full code for the JUDE as discussed and agreed by the patient, DNR status will be re-instated after JUDE. Lei Russell MD, [facility] Cardiovascular Foreign Banknote TellerRadio Equipment Installersolar photovoltaic systems engineer [facility] Pager: [phone]023 NoteHNO ID: [id number] Author: Kim Sinclair MD Service: Hospital Medicine [...] 233 MCV 92.9 92.9 CHEM: Recent Labs 06/09/2345306/08/23355 NA 141 142 K 4.1 3.6* CA 8.7 8.6 MG 2.0 2.2 P 2.6* 2.7 ANION 10 9 CHLOR 105 106* CO2 26 27 GLUC 97 91 BUN 15 17 CREAT 1.14* 1.08* HEPATIC: No results for input(s): ALT, AST, TBILI, ALKPHOS, ALB, TPROT, LIPASE in the last 168 hours. URINALYSIS:No results for input(s): SPGR, UBACTERIA, LEUKEST, SSA, UWBC, URBC, UHB, UPROT, UGLUC, UKET in the last 168 hours. Invalid input(s): NITR COAG: Recent Labs 06/08/23 1320 APTT 26.3 INR 1.1 CARDIAC: No results for input(s): CKMB, CKMBP, TROPT, PBNP in the last 168 hours. Imaging: CT BRAIN WO IVCON Result Date: 06/08/2023 IMPRESSION: No significant interval change in acute left cerebellar infarct. MR-Brain without Contrast IMPORT Result Date: 06/07/2023 Images were obtained outside of [facility] OT-Brain/Head without Contrast IMPORT Result Date: 06/07/2023 Images were obtained outside of [facility] CT-CTA Head AND Neck W/ Contrast IMPORT Result Date: 06/07/2023 Images were obtained outside of [facility] Most recent EKG NSR Blood and Urine Culture: Positive Micro-30 Days No results found for the last 720 hours. Problem list Cerebellar stroke, acute (HCC) (POA: Yes) Mixed hyperlipidemia (POA: Yes) Ataxia due to acute cerebrovascular disease (POA: Yes) Class 1 obesity in adult (POA: Yes) Severe mitral valve stenosis (POA: Yes) Hypophosphatemia (POA: Yes) Assessment and plan: Lashon Tracey is a 83 year old with PMH of h/o stroke, rheumatic fever aged 7 complicated by severe mitral stenosis. Presented to [place] ED with GOLDMAN, ataxia, and presyncope on 06/05. MRI brain showed left cerebellar infarct. Teleneurology recommended tertiary center with neurosurgery capability. Patient was monitored on NSICU. Remained stable. Transferred to [facility] 06/08/2023. # Acute left cerebellar stroke [...] - MRI brain done at [facility] 06/09. Regular diet. - PT/OT pending [...] and/or minor grammatical errors may exist. SIGNATURE: iKm Sinclair MD PATIENT NAME: Lashon Tracey DATE: 06/09/2023 TIME: 1:18 [facility]11-12-2023 History of Past illness Narrative* Problem Noted Date Diagnosed Date Resolved Date Hypokalemia 06/08/2023 06/09/2023 documented as of this encounter (statuses as of 06/20/2023) [facility]11-12-2023 NoteHNO ID: [id number] Author: Nilsa Prater [facility] Service: Pharmacy Author Type: Pharmacist Type: Plan of Care Filed: 06/10/2023 9:38 AM Note Text: PHARMACY MEDICATION REVIEW Patient Name: Lashon Tracey : 1940 The following medications were updated within the SURGICAL FIRST ASSISTANT medication list: Medications ADDED to SURGICAL FIRST ASSISTANT medication list ascorbic acid, vitamin C, (VITAMIN C) 500 mg tablet Patient Yes Yes aspirin, enteric coated (ASPIRIN, ENTERIC COATED) 81 mg EC tablet Patient Yes Yes mv-min/iron/folic/calcium/vitK (WOMEN'S MULTIVITAMIN ORAL) Patient Yes Yes triamcinolone acetonide (KENALOG) 0.1 % ointment OTHER, Patient Yes Yes OTC medications and Kenalog RX as needed. (Poison Jen exposure per pt) Medications CHANGED on SURGICAL FIRST ASSISTANT medication list Medications REMOVED from SURGICAL FIRST ASSISTANT medication list Additional comments: I was able to talk with pt. and she verified the 4 medications on the SURGICAL FIRST ASSISTANT list. I have added these 4 medications to the SURGICAL FIRST ASSISTANT list and have not removed or changed any medications. Pt states she uses [facility] for her home medications. Required follow up actions for nursing: Medication history completed by Historian. No nursing follow up required. The below information represents the best possible medication history: Yes Medication history completed by: Cracker Sprayer: Brendan Sánchez (Bread Stacker) Source of history: Patient: Reliability of source: Appears reliable, clearly identified: Medication name, Medication dose, Medication route, and Medication frequency and Pharmacy records: [facility] Medication nonadherence identified: No barriers noted Reconciliation completed: Yes Completed by: Imer BlissD, [facility] Nursing Unit Based Pharmacist Ext: [phone] All SURGICAL FIRST ASSISTANT medications addressed by LIP Patient interested in Bedside Delivery Services or using OP Pharmacy at discharge? Unable to assess Preferred outpatient pharmacy: e- [facility] [place] [address] - [address] - [phone] Allergies: No Known Allergies Prior to Admission [...] AND USE TWICE DAILY in THE future [facility] Facility-Administered Medications: None Brendan Sánchez (Bread Stacker) phone [phone] 06/08/2023 I have reviewed and agree with the medication history note completed by the medication historian as documented above. All medications reviewed and reconciled appropriately. Nilsa Ortiz, ImerD, [facility] Nursing Unit Based Pharmacist Ext: [phone]023 [facility] 06-08-2023 NoteHNO ID: [id number] Author: Daniella Strickland APRN.NACHO Service: Neurology ICU Author Type: Nurse Practitioner Type: Progress Notes Filed: 06/08/2023 6:24 AM Note Text: Patient arrived from [place]. Exam stable. Still with left sided dysmetria. GOLDMAN and nausea controlled. She is on RA and protecting airway. We will hold Chemo VTE ppx until need for decompression ruled out. Full note to follow. Stroke Care path started.[facility]11-11-2023 NoteHNO ID: [id number] Author: Yoana Crawford MD Service: ? Author Type: Fellow Type: Progress Notes Filed: 06/07/2023 7:03 PM Note Text: Stroke Neurology Plan of Care Paged by regarding transfer request for pt currently residing at [facility]. Spoke to Dr. Up for the following information. 83F who presented yesterday for 1 day of feeling off balance and falling to the left with n/v. LKW 06/05. [facility] NAP. MRI and CTA showed acute [...] at facility with endovascular capability. Cont [facility] is closest for this. Advised transfer to [facility]. Supervising attending: Dr. Riley. Yoana Crawford MD Vascular Neurology Fellow PGY-5 June 07, 2023 6:57 [facility]11-11-2023 Progress note Author Cindy Up [facility] June 07, 2023 5:09pm Note Date/Time June 07, 2023 5:09pm [facility] Medical Records Department [address] [place] [address] Progress Note - Hospitalist 06/07/231708 MR#: [id number] Acct: [id number] Name: LASHON TRACEY Rep #:[id number] : 1940 83 From: Cindy Up MD PCP: Dr. Mitul Rutherford MD Status:ADM IN Location: [place] [address] Hospitalist Note Given MRI CTA findings reconsulted teleneurology who recommended transfer to tertiary facility. Will initiate transfer 06/07/231708 <Electronically signed by Cindy Up MD> Cosigner Signature (if applicable): CC: ~ Signed [facility] Work Phone: [phone]) 425-418911-11-2023 History of Present illness Narrative* Yoana Crawford MD - 06/07/2023 6:51 PM EST Stroke Neurology Plan of Care Paged by regarding transfer request for pt currently residing at [facility] R[facility].Spoke to Dr. Up for the following information. 83F who presented yesterday for 1 day of feeling off balance and falling to the left with n/v. LKW 06/05. [facility] NAP. MRI and CTA showed acute [...] at facility with endovascular capability. [facility] is closest for this. Advised transfer to [facility]. Supervising attending: Dr. Riley. Yoana Crawford MD Vascular Neurology Fellow PGY-5 June 07, 2023 6:57 PM [facility] Progress note Author Cindy Up [facility] June 07, 2023 12:00pm Note Date/Time June 07, 2023 11:08am [facility] Medical Records Department [address] [place] [address] Progress Note - Hospitalist 06/07/23 1108 MR#: [id number] Acct: [id number] Name: LASHON TRACEY Rep #:[id number] : 1940 83 From: Cindy Up MD PCP: Dr. Mitul Rutherford MD Status:ADM JONATHON Location: [place] [address] 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) Difficulty in walking, not elsewhere classified (06/07/23) Dizziness and giddiness (06/07/23) Personal history of transient ischemic attack (TIA), and cerebral infarction without residual deficits (06/07/23) Subjective Subjective Pt resting in bed, echo being presently preformed, pt still having headache and nausea Objective Data Objective Data Vital Signs: Vital Signs Temp Pulse Resp BP Pulse Ox O2 Del Method 97.2 F L 71 18 123/62 H 100 Room Air 06/07/23 08:21 06/07/23 08:21 06/07/23 08:21 06/07/23 08:21 06/07/23 08:21 06/07/23 08:22 Oxygen Delivery Method Room Air Weight: 77.6 kg Body Mass Index (BMI) 32.3 Intake & Output: Intake and Output for Last 24 Hours 06/05/23 06/06/23 06/07/23 23:59 23:59 23:59 Intake Total 1000 / 1000 Balance 1000 / 1000 Lab / Micro Data 06/07/23 06:25 06/07/23 06:25 Labs: Laboratory Results - last 24 hr 06/06/23 19:35: WBC 13.3 H, RBC 4.27, Hgb 12.9, Hct 40.6, MCV 95.1, MCH 30.2, MCHC 31.8 L, RDW Std Deviation 44.9 H, RDW Coeff of Alfredo 12.9, Plt Count 254, MPV10.2, Immature Gran % (Auto) 0.400, Neut % (Auto) 88.1 H, Lymph % (Auto) 8.9 L, [place] % (Auto) 2.0, Eos % (Auto) 0.1, Baso % (Auto) 0.5, Absolute Neuts (auto) 11.8 H, Absolute Lymphs (auto) 1.18, Nucleated RBC % 0, Sodium 138, Potassium 4.0, Chloride 105, Carbon Dioxide 27.0, Anion Gap 6, BUN 22 H, Creatinine 1.03 H, Est GFR (MDRD) Af Amer 66, Est GFR (MDRD) Non-Af 54 L, BUN/Creatinine Ratio 21.4 H, Glucose 146 H, Calcium 9.1, Total Bilirubin 0.40, AST 16, ALT 15, Alkaline Phosphatase 90, Total Protein 7.5, Albumin 3.9, Globulin 3.6, Albumin/Globulin Ratio 1.1 06/06/23 20:51: Urine Color Yellow, Urine Clarity Sl. Cloudy, Urine pH 7.0, Ur Specific Marissa 1.010, Urine Protein 15 H, Urine Glucose (UA) Normal, Urine Ketones 50 H, Urine Occult Blood Negative, Urine Nitrite Negative, Urine Bilirubin Negative, Urine Urobilinogen Normal, Ur Leukocyte Esterase 25 H, UrineRBC 0 SEEN, Urine WBC 0-5 SEEN, Ur Squamous Epith Cells 0-5 SEEN, Urine Bacteria1+, Urine Mucus 0 SEEN 06/07/23 06:25: WBC 9.2, RBC 4.05 L, Hgb 12.2, Hct 38.8, MCV 95.8, MCH 30.1, MCHC 31.4 L, RDW Std Deviation 46.2 H, RDW Coeff of Alfredo 12.9, Plt Count 237, MPV10.5, Immature Gran % (Auto) 0.200, Neut % (Auto) 79.3 H, Lymph % (Auto) 14.6 L,[place] % (Auto) 5.7, Eos % (Auto) 0.0, Baso % (Auto) 0.2, Absolute Neuts (auto) 7.3, Absolute Lymphs (auto) 1.34, Nucleated RBC % 0, Sodium 139, Potassium 3.9, Chloride 108 H, Carbon Dioxide 26.0, Anion Gap 5, BUN 19 H, Creatinine 0.92, Estim Creat Clear Calc 34.35, Est GFR (MDRD) Af Amer 75, Est GFR (MDRD) Non-Af 62, BUN/Creatinine Ratio 20.8 H, Glucose 105, Calcium 8.1 L, Total Bilirubin 0.40, AST 14 L, ALT 13, Alkaline Phosphatase 79, Total Protein 6.5, Albumin 3.1 L, Globulin 3.4, Albumin/Globulin Ratio 0.9, Triglycerides 57, Cholesterol 192, LDL Cholesterol 122, VLDL Cholesterol 11, HDL Cholesterol 59, TSH 1.15 Radiography Diagnostic Testing: Radiology Impression Brain CT 06/06/23 20:24 IMPRESSION: 1. Mild involutional change and focal area of diminished density and loss of francis-white differentiation the RIGHT inferior frontal gyrus. Area of encephalomalacic in potential surrounding subacute ischemic changes are present. No evidence however of mass, hemorrhage, or acute territorial infarct. 2. No radiographically significant sinus disease.. Electronically Signed: Reid Garcia MD at 20:55 EST , Brain MRI 06/07/23 00:41 IMPRESSION: Acute left cerebellar infarct. Old right frontal infarct. Mild chronic involutional and white matter changes. Electronically Signed: Lynda Bueno MD at 9:32 EST , ADDENDUM: 06/07/23 1001 IMPRESSION: Acute left cerebellar infarct. Old right frontal infarct. Mild chronic involutional and white matter changes. N.B. : Rico Rodriguez RN, confirmed on 06/07/2023 09:54:06 (ET) that the healthcare facility has received the radiology report. Electronically Signed: Lynda Bueno MD at 9:32 EST Reading Location ID and State: [facility] / [place] Tel , Service support , Physical Exam Narrative General: Resting comfortably, no acute distress HEENT: Atraumatic Eyes: Eyes closed resting comfortably Neck: Supple Respiratory: normal respiratory effort Cardiovascular: no edema appreciated GI: nondistended Extremities: Moving extremities in bed Neuro: Resting comfortably in bed, did not get patient up to walker for safety purposes and this was her main neurologic complaint, still feeling nauseous Psych: Cooperative Assessment & Plan Assessment/Plan (1) Cerebellar stroke, acute: (2) Secondary pulmonary arterial hypertension: PLAN: Plan #Acute left cerebellar stroke w/ old right frontal stroke -Seen on MRI -This would account for her symptoms -Echo with no PFO -Carotid duplex not available on the weekends, will get CTA to assess vessels inhead and neck -When evaluated by neurology last night they recommended starting a Plavix load and then 75 mg daily of Plavix in addition to aspirin and statin if positive MRIso this has been started -Patient work with PT/OT -Supportive care for nausea and headache #Severe mitral valve stenosis -Not presently having any cardiac complaints, will need to follow-up with cardiology upon discharge #DVT ppx: Lovenox Cindy Up MD Time spent in the patient's overall evaluation,decision-making process, review of diagnostic data, adjustment of management, discussion with other providers, nursing nursing and ancillary staff involved in patient's care documentation, 37minutes Charges/Coding Visit Charges Inpatient E&M: 79406 Subs Hosp L2 06/07/23 1200 <Electronically signed by Cindy Up MD> Cosigner Signature (if applicable): CC: ~ Signed [facility] Work Phone: 1(174) 456-100111-11-2023 History and physical note Author Russ Mccann [facility] June 07, 2023 6:35am Note Date/Time June 07, 2023 12:00am [facility] Medical Records Department [address] [place] [address] H&P Exam - Hospitalist 06/06/23 5703 MR#: [id number] Acct: [id number] Name: LASHON TRACEY Rep #:[id number] : 1940 83 From: Russ Lind DO PCP: Dr. Mitul Rutherford MD Status:ADM JONATHON Location: [place] [address] HPI - General General Date of Admission: 06/07/23 Date of Service: 06/06/23 Chief Complaint: Nausea and vomiting with falls to the left HPI Narrative LASHON TRACEY, is a 83 F with a past medical history of CVA, history of TIA in November 2010, history of rheumatic fever, secondary pulmonary arterial hypertension,osteoarthritis; with history of arthroscopic knee surgery, history of basal cellcarcinoma, history of osteoarthritis and history of suspected CVA approximately 1 year ago after taking medications to prepare for cataract surgery when she woke up in the morning transiently unable to speak who presents to [facility] ER complaining of nausea and vomiting with falls to the left. Ms. Tracey reports her symptoms began about 1 day prior to admission with a acute onset of nausea followed by bilious emesis with headache and a feeling of poor balance. She then called her son and when he arrived he also noted that she was have difficulty walking with a tendency to fall to the left. She admitsshe felt like she was going to pass out completely. She admits to subjective chills but denies fevers. She describes her headache as a tension-type aching feeling over the frontal area of her head. She also admits to 1 episode of loose stools today but she denies hematemesis or coffee-ground emesis. She alsodenies melena or hematochezia. In the ER she was noted to have a CT scan of thehead that was negative for acute pathologic changes. However, the ER physician was concerned for possible acute neurologic insult so she was then admitted to the CDU under observation status for a TIA versus CVA work-up for a stay that isexpected to be less than 48 hours. [facility] Medical History CVA (cerebral vascular accident) History of basal cell carcinoma History of rheumatic fever History of TIA (transient ischemic attack) (12/05/20) Osteoarthritis Secondary pulmonary arterial hypertension Home Medications aspirin 81 mg tablet,delayed release (Adult Aspirin Regimen) 81 mg PO DAILY 01/24/21 [History Last Taken Unknown] Allergy/AdvReac Type Severity Reaction Status Date / Time No Known Allergies Allergy Verified 06/06/23 18:28 Surgical History H/O arthroscopic knee surgery History of carpal tunnel release Social History Smoking Status: Never smoker alcohol intake: never substance use type: does not use ROS ROS Narrative Review of systems: Constitutional: Patient admits to chills but denies fever Eyes: Patient denies visual changes ENT: Patient denies runny nose or sore throat Cardiovascular: Patient denies chest pain or palpitations but she does admit to near syncope Respiratory: Patient denies shortness of breath or cough Gastrointestinal: Patient admits to loose stools, nausea and vomiting with bilious emesis Genitourinary: Patient denies dysuria or hematuria Musculoskeletal: Patient denies neck or back pain Integumentary: Patient denies abscess or rash Neurologic: Patient admits to headache in the frontal area but denies focal neurologic deficits Allergic: Patient denies mild swelling or urticaria 14 point review systems otherwise negative except for positives noted above in HPI. Vital Signs Vital Signs Vital Signs: 06/06/23 18:29 06/06/23 18:57 06/06/23 21:00 Temperature 99 F Temperature Source Temporal Pulse Rate 73 83 89 Respiratory Rate 14 16 16 Blood Pressure 160/79 H 147/73 H 150/76 H Blood Pressure Mean 106 97 100 Pulse Ox 100 96 95 Oxygen Delivery Method Room Air Room Air Room Air 06/06/23 23:00 Temperature Temperature Source Pulse Rate 70 Respiratory Rate 16 Blood Pressure 136/56 H Blood Pressure Mean 82 Pulse Ox 97 Oxygen Delivery Method Room Air Weight Weight: 169 lb 1.513 oz Body Mass Index (BMI) 30.9 Physical Exam Const alert, oriented x3 and average body habitus General Appearance: cooperative HEENT normocephalic, head/scalp atraumatic, hearing grossly normal bilaterally and moist oral mucous membranes Eyes PERRL, EOMs intact bilaterally and conjunctivae normal Neck no lymphadenopathy, supple and no JVD Resp normal respiratory effort, no retractions, no use of accessory muscles and clearto auscultation bilaterally Cardio regular rate and regular rhythm GI normal to inspection, nondistended, normoactive bowel sounds, soft to palpation,non-tender and non-distended Extremity normal to inspection Skin Skin Narrative: Patient has no evidence of rash at this time. Neuro oriented x3, CN's II-XII intact bilaterally, moves all extremities and no focal motor deficits Sensorium / Orientation: awake, alert, oriented to person, oriented to place andoriented to time Speech: speech normal Motor Exam: strength 5/5 throughout Psych Mood & Affect: anxious Results Medical Records Data Attestation: I reviewed the patient's medical records Lab / Micro Data Attestation: I reviewed the patient's lab results. 06/06/23 19:35 06/06/23 19:35 Labs: Laboratory Results - last 24 hr 06/06/23 19:35: WBC 13.3 H, RBC 4.27, Hgb 12.9, Hct 40.6, MCV 95.1, MCH 30.2, MCHC 31.8 L, RDW Std Deviation 44.9 H, RDW Coeff of Alfredo 12.9, Plt Count 254, MPV10.2, Immature Gran % (Auto) 0.400, Neut % (Auto) 88.1 H, Lymph % (Auto) 8.9 L, [place] % (Auto) 2.0, Eos % (Auto) 0.1, Baso % (Auto) 0.5, Absolute Neuts (auto) 11.8 H, Absolute Lymphs (auto) 1.18, Nucleated RBC % 0, Sodium 138, Potassium 4.0, Chloride 105, Carbon Dioxide 27.0, Anion Gap 6, BUN 22 H, Creatinine 1.03 H, Est GFR (MDRD) Af Amer 66, Est GFR (MDRD) Non-Af 54 L, BUN/Creatinine Ratio 21.4H, Glucose 146 H, Calcium 9.1, Total Bilirubin 0.40, AST 16, ALT 15, Alkaline Phosphatase 90, Total Protein 7.5, Albumin 3.9, Globulin 3.6, Albumin/Globulin Ratio 1.1 06/06/23 20:51: Urine Color Yellow, Urine Clarity Sl. Cloudy, Urine pH 7.0, Ur Specific Marissa 1.010, Urine Protein 15 H, Urine Glucose (UA) Normal, Urine Ketones 50 H, Urine Occult Blood Negative, Urine Nitrite Negative, Urine Bilirubin Negative, Urine Urobilinogen Normal, Ur Leukocyte Esterase 25 H, UrineRBC 0 SEEN, Urine WBC 0-5 SEEN, Ur Squamous Epith Cells 0-5 SEEN, Urine Bacteria1+, Urine Mucus 0 SEEN Radiology Impression Brain CT 06/06/23 20:24 IMPRESSION: 1. Mild involutional change and focal area of diminished density and loss of francis-white differentiation the RIGHT inferior frontal gyrus. Area of encephalomalacic in potential surrounding subacute ischemic changes are present. No evidence however of mass, hemorrhage, or acute territorial infarct. 2. No radiographically significant sinus disease.. Electronically Signed: Reid Garcia MD at 20:55 EST , Assessment & Plan Assessment/Plan (1) Inability to walk: (2) Dizziness: (3) History of TIA (transient ischemic attack): (4) Severe mitral valve stenosis: PLAN: Plan 1. TIA versus CVA with tendency to fall to the left due to acute disequilibrium- Admit CDU under observation status for treatment under the TIA protocol with patient to continue on her baby aspirin daily plus we will start a statin at this time. We will check MRI of the brain to evaluate for acute infarct. We will check carotid duplex to evaluate for stenosis. We will check echocardiogram to evaluate left ventricular ejection fraction and to assess patient's mitral valve with a history of severe mitral stenosis. We will allow for permissive hypertension until stroke is definitively ruled out. Finally, bryan consult the neurologist on-call to see this patient on rounds in the a.m. with help appreciated in advance. 2. Frontal headache with nausea and vomiting likely due to #1 with a suspected component of BPPV - Continue supportive care. We will give Zofran as needed fornausea and vomiting. We will give Tylenol as needed for headache. We will alsogive meclizine as needed for breakthrough vertigo symptoms. 3. Generalized weakness with ambulatory dysfunction and frequent falls arising from #1 & #2 -patient will be admitted under fall precautions. We will consult PT/OT and case management to help this patient regain her mobility with help appreciated in advance. 4. Obesity with a BMI of 30.9 this admission - Weight loss will be recommended. Check TSH. 5. DVT prophylaxis - Lovenox 40 mg subcu daily. Total time: Approximately 45-minutes. Charges/Coding Visit Charges OBSV E&M: 61375 Observ/hosp same date L1 06/07/23 0635 <Electronically signed by Russ Rutherford DO> Cosigner Signature (if applicable): CC: Dr. Russ Rutherford DO; Dr. Mitul Rutherford MD~ Signed [facility] Work Phone: 1(357) 598-913711-11-2023 Discharge summary Author Mitul Owen [facility] June 07, 2023 12:05am Note Date/Time June 06, 2023 8:11pm [facility] Medical Records Department [address] [place] [id number] Emergency Department Summary 06/06/23 MR#: [id number] Acct: [id number] Name: LASHON TRACEY Rep #:[id number] : 1940 83 From: Mitul Barfield PCP: Dr. Mitul Rutherford MD Status:REG ER Location: ED HPI History of Present Illness Chief Complaint: Nausea/Vomiting Informant: patient and family Onset/Context/Timing Onset: Today Context: Gradual Onset Timing: Continuous Quality: Aching, off balance Location: Frontal head Worsened by: Movement and ambulation Relieved by: Nothing Narrative Narrative: Patient presents with nausea, vomiting, headache, and off-balance feeling that began today. Son states that the patient called him and was having some dizziness and difficulty ambulating. Son states the patient told him that she did not feel right. Son states that when he got there she was having some nausea and vomiting and had difficulty ambulating. Son states the patient kept falling to the left. Patient states she feels like she was off balance and feltlike she could pass out. Patient describes her headache as aching. Patient states it is mainly over the frontal area. Patient denies any hematemesis or coffee-ground emesis. Patient had 1 episode of loose diarrhea today. Patient denies any melena or hematochezia. Patient admits to some subjective chills butdenies any fevers. PFSH PFSH Medical History CVA (cerebral vascular accident) History of basal cell carcinoma History of rheumatic fever History of TIA (transient ischemic attack) (12/05/20) Osteoarthritis Secondary pulmonary arterial hypertension Home Medications aspirin 81 mg tablet,delayed release (Adult Aspirin Regimen) 81 mg PO DAILY 01/24/21 [History Last Taken Unknown] Allergy/AdvReac Type Severity Reaction Status Date / Time No Known Allergies Allergy Verified 06/06/23 18:28 Surgical History H/O arthroscopic knee surgery History of carpal tunnel release Social History Smoking Status: Never smoker alcohol intake: never substance use type: does not use ROS ROS ED Constitutional Constitutional ED: Reports chills and subjective; Denies fever(s) Eyes Eyes: Denies diplopia ENT ENT ED: Denies rhinorrhea or sore throat Cardiovascular Cardiovascular: Denies chest pain or palpitations Respiratory/Chest Respiratory/Chest: Denies cough or dyspnea Gastrointestinal Gastrointestinal: Reports diarrhea, nausea and vomiting Genitourinary Genitourinary ED: Denies dysuria or hematuria Musculoskeletal Musculoskeletal: Reports neck pain; Denies back pain Integumentary Denies abscess or rash Neurologic Neurologic: Reports headache(s); Denies weakness Allergic/Immunologic Allergic/Immunologic ED: Denies mouth swelling or urticaria EXAM Physical Exam Const Vital Signs: 06/06/23 18:29 06/06/23 18:57 06/06/23 21:00 Temperature 99 F Temperature Source Temporal Pulse Rate 73 83 89 Respiratory Rate 14 16 16 Blood Pressure 160/79 H 147/73 H 150/76 H Blood Pressure Mean 106 97 100 Pulse Ox 100 96 95 Oxygen Delivery Method Room Air Room Air Room Air 06/06/23 23:00 Temperature Temperature Source Pulse Rate 70 Respiratory Rate 16 Blood Pressure 136/56 H Blood Pressure Mean 82 Pulse Ox 97 Oxygen Delivery Method Room Air Positive well nourished and well developed General Appearance ED: well developed and NAD HEENT Reports moist mucous membranes Eyes PERRL and EOMs intact bilaterally Eyes Narrative: There is nystagmus with left lateral gaze. Neck supple and no JVD Resp normal respiratory effort and clear to auscultation bilaterally Cardio regular rate and regular rhythm GI non-tender and non-distended Palpation: soft Extremity normal to inspection Neuro oriented x3, CN's II-XII intact bilaterally and no sensory deficits noted Sensorium / Orientation: alert Motor Exam: strength 5/5 throughout Psych mental status grossly normal MDM MDM MDM Narrative Medical decision making narrative: Differential diagnosis includes stroke, vertigo, labyrinthitis, intracranial bleeding, electrolyte abnormality, viral infection, gastroenteritis, anemia, andsinusitis. CT scan of the brain will be obtained to assess for intracranial bleeding and stroke. CBC will be obtained to assess for leukocytosis and anemia. Comprehensive metabolic profile will be obtained to assess for hepatic function, renal function, and electrolyte abnormality. Urinalysis will be obtained to assess for urinary tract infection. Lab Data Attestation: I reviewed the patient's lab results. Lab results narrative: CBC was reviewed. There is a slight leukocytosis of 13.3. The remainder is within normal limits. Comprehensive metabolic profile was reviewed and was essentially within normal limits. Urinalysis was reviewed. There is no evidence of urinary tract infection or hematuria. Labs: Laboratory Results - last 24 hr 06/06/23 06/06/23 19:35 20:51 WBC 13.3 H RBC 4.27 Hgb 12.9 Hct 40.6 MCV 95.1 MCH 30.2 MCHC 31.8 L RDW Std Deviation 44.9 H RDW Coeff of Alfredo 12.9 Plt Count 254 MPV 10.2 Immature Gran % (Auto) 0.400 Neut % (Auto) 88.1 H Lymph % (Auto) 8.9 L [place] % (Auto) 2.0 Eos % (Auto) 0.1 Baso % (Auto) 0.5 Absolute Neuts (auto) 11.8 H Absolute Lymphs (auto) 1.18 Nucleated RBC % 0 Sodium 138 Potassium 4.0 Chloride 105 Carbon Dioxide 27.0 Anion Gap 6 BUN 22 H Creatinine 1.03 H Est GFR (MDRD) Af Amer 66 Est GFR (MDRD) Non-Af 54 L BUN/Creatinine Ratio 21.4 H Glucose 146 H Calcium 9.1 Total Bilirubin 0.40 AST 16 ALT 15 Alkaline Phosphatase 90 Total Protein 7.5 Albumin 3.9 Globulin 3.6 Albumin/Globulin Ratio 1.1 Urine Color Yellow Urine Clarity Sl. Cloudy Urine pH 7.0 Ur Specific Marissa 1.010 Urine Protein 15 H Urine Glucose (UA) Normal Urine Ketones 50 H Urine Occult Blood Negative Urine Nitrite Negative Urine Bilirubin Negative Urine Urobilinogen Normal Ur Leukocyte Esterase 25 H Urine RBC 0 SEEN Urine WBC 0-5 SEEN Ur Squamous Epith Cells 0-5 SEEN Urine Bacteria 1+ Urine Mucus 0 SEEN Radiography Diagnostic Testing: Clinical Impression(s) from Imaging Studies Brain CT 06/06/23 20:24 IMPRESSION: 1. Mild involutional change and focal area of diminished density and loss of francis-white differentiation the RIGHT inferior frontal gyrus. Area of encephalomalacic in potential surrounding subacute ischemic changes are present. No evidence however of mass, hemorrhage, or acute territorial infarct. 2. No radiographically significant sinus disease.. Electronically Signed: Reid Garcia MD at 20:55 EST , CT scan of the brain was obtained. There is an area of diminished density and loss of francis-white differentiation in the right inferior frontal gyrus. No evidence of acute infarct, mass, or hemorrhage. This was interpreted by the radiologist and was also independently reviewed by myself. Management Discussion w/another healthcare provider: Hospitalist Treatment and Re-Evaluation :: Patient was given IV fluids and Zofran here. Patient was given a dose of Valium. Patient was feeling better on reevaluation. Patient was advised of herfindings. Family states that the patient did have a stroke in the recent past. This would likely account for the CT findings. Patient tempted to ambulate herein the emergency department. Patient was unable to take more than 1 or 2 steps. Patient states she still felt like she was falling to the left. Patient was still complaining of a headache. Patient was given a dose of morphine for this. Case will be discussed with the hospitalist for admission. Admit the patient for observation. Patient and family understood and were agreeable with the plan. All questions were answered. Discharge Plan Dx/Rx/DC Orders Clinical Impression: Dizziness, Inability to walk [facility] What to do if you have Problems For any increased pain, shortness of breath, bleeding, nausea or vomiting, chestpain, or any unexpected problems, contact your Primary Care Provider. Call [facility] ([phone]) or report to the closest Emergency Room. Call 911 if necessary. 06/07/23 0005 <Electronically signed by Mitul Owen DO> Cosigner Signature (if applicable): CC: Dr. Mitul Rutherford MD ~ Signed [facility] Work Phone: 1(921) 368-573811-10-2023 Discharge summary Author Mitul Owen [facility] June 07, 2023 12:05am Note Date/Time June 06, 2023 8:11pm [facility] Medical Records Department [address] [place] [address] Emergency Department Summary 06/06/23 MR#: [id number] Acct: [id number] Name: LASHON TRACEY Rep #:[id number] : 1940 83 From: Mitul Barfield PCP: Dr. Mitul Rutherford MD Status:REG ER Location: ED HPI History of Present Illness Chief Complaint: Nausea/Vomiting Informant: patient and family Onset/Context/Timing Onset: Today Context: Gradual Onset Timing: Continuous Quality: Aching, off balance Location: Frontal head Worsened by: Movement and ambulation Relieved by: Nothing Narrative Narrative: Patient presents with nausea, vomiting, headache, and off-balance feeling that began today. Son states that the patient called him and was having some dizziness and difficulty ambulating. Son states the patient told him that she did not feel right. Son states that when he got there she was having some nausea and vomiting and had difficulty ambulating. Son states the patient kept falling to the left. Patient states she feels like she was off balance and feltlike she could pass out. Patient describes her headache as aching. Patient states it is mainly over the frontal area. Patient denies any hematemesis or coffee-ground emesis. Patient had 1 episode of loose diarrhea today. Patient denies any melena or hematochezia. Patient admits to some subjective chills butdenies any fevers. [facility] Medical History CVA (cerebral vascular accident) History of basal cell carcinoma History of rheumatic fever History of TIA (transient ischemic attack) (12/05/20) Osteoarthritis Secondary pulmonary arterial hypertension Home Medications aspirin 81 mg tablet,delayed release (Adult Aspirin Regimen) 81 mg PO DAILY 01/24/21 [History Last Taken Unknown] Allergy/AdvReac Type Severity Reaction Status Date / Time No Known Allergies Allergy Verified 06/06/23 18:28 Surgical History H/O arthroscopic knee surgery History of carpal tunnel release Social History Smoking Status: Never smoker alcohol intake: never substance use type: does not use ROS ROS ED Constitutional Constitutional ED: Reports chills and subjective; Denies fever(s) Eyes Eyes: Denies diplopia ENT ENT ED: Denies rhinorrhea or sore throat Cardiovascular Cardiovascular: Denies chest pain or palpitations Respiratory/Chest Respiratory/Chest: Denies cough or dyspnea Gastrointestinal Gastrointestinal: Reports diarrhea, nausea and vomiting Genitourinary Genitourinary ED: Denies dysuria or hematuria Musculoskeletal Musculoskeletal: Reports neck pain; Denies back pain Integumentary Denies abscess or rash Neurologic Neurologic: Reports headache(s); Denies weakness Allergic/Immunologic Allergic/Immunologic ED: Denies mouth swelling or urticaria EXAM Physical Exam Const Vital Signs: 06/06/23 18:29 06/06/23 18:57 06/06/23 21:00 Temperature 99 F Temperature Source Temporal Pulse Rate 73 83 89 Respiratory Rate 14 16 16 Blood Pressure 160/79 H 147/73 H 150/76 H Blood Pressure Mean 106 97 100 Pulse Ox 100 96 95 Oxygen Delivery Method Room Air Room Air Room Air 06/06/23 23:00 Temperature Temperature Source Pulse Rate 70 Respiratory Rate 16 Blood Pressure 136/56 H Blood Pressure Mean 82 Pulse Ox 97 Oxygen Delivery Method Room Air Positive well nourished and well developed General Appearance ED: well developed and NAD HEENT Reports moist mucous membranes Eyes PERRL and EOMs intact bilaterally Eyes Narrative: There is nystagmus with left lateral gaze. Neck supple and no JVD Resp normal respiratory effort and clear to auscultation bilaterally Cardio regular rate and regular rhythm GI non-tender and non-distended Palpation: soft Extremity normal to inspection Neuro oriented x3, CN's II-XII intact bilaterally and no sensory deficits noted Sensorium / Orientation: alert Motor Exam: strength 5/5 throughout Psych mental status grossly normal MDM MDM MDM Narrative Medical decision making narrative: Differential diagnosis includes stroke, vertigo, labyrinthitis, intracranial bleeding, electrolyte abnormality, viral infection, gastroenteritis, anemia, andsinusitis. CT scan of the brain will be obtained to assess for intracranial bleeding and stroke. CBC will be obtained to assess for leukocytosis and anemia. Comprehensive metabolic profile will be obtained to assess for hepatic function, renal function, and electrolyte abnormality. Urinalysis will be obtained to assess for urinary tract infection. Lab Data Attestation: I reviewed the patient's lab results. Lab results narrative: CBC was reviewed. There is a slight leukocytosis of 13.3. The remainder is within normal limits. Comprehensive metabolic profile was reviewed and was essentially within normal limits. Urinalysis was reviewed. There is no evidence of urinary tract infection or hematuria. Labs: Laboratory Results - last 24 hr 06/06/23 06/06/23 19:35 20:51 WBC 13.3 H RBC 4.27 Hgb 12.9 Hct 40.6 MCV 95.1 MCH 30.2 MCHC 31.8 L RDW Std Deviation 44.9 H RDW Coeff of Alfredo 12.9 Plt Count 254 MPV 10.2 Immature Gran % (Auto) 0.400 Neut % (Auto) 88.1 H Lymph % (Auto) 8.9 L [place] % (Auto) 2.0 Eos % (Auto) 0.1 Baso % (Auto) 0.5 Absolute Neuts (auto) 11.8 H Absolute Lymphs (auto) 1.18 Nucleated RBC % 0 Sodium 138 Potassium 4.0 Chloride 105 Carbon Dioxide 27.0 Anion Gap 6 BUN 22 H Creatinine 1.03 H Est GFR (MDRD) Af Amer 66 Est GFR (MDRD) Non-Af 54 L BUN/Creatinine Ratio 21.4 H Glucose 146 H Calcium 9.1 Total Bilirubin 0.40 AST 16 ALT 15 Alkaline Phosphatase 90 Total Protein 7.5 Albumin 3.9 Globulin 3.6 Albumin/Globulin Ratio 1.1 Urine Color Yellow Urine Clarity Sl. Cloudy Urine pH 7.0 Ur Specific Marissa 1.010 Urine Protein 15 H Urine Glucose (UA) Normal Urine Ketones 50 H Urine Occult Blood Negative Urine Nitrite Negative Urine Bilirubin Negative Urine Urobilinogen Normal Ur Leukocyte Esterase 25 H Urine RBC 0 SEEN Urine WBC 0-5 SEEN Ur Squamous Epith Cells 0-5 SEEN Urine Bacteria 1+ Urine Mucus 0 SEEN Radiography Diagnostic Testing: Clinical Impression(s) from Imaging Studies Brain CT 06/06/23 20:24 IMPRESSION: 1. Mild involutional change and focal area of diminished density and loss of francis-white differentiation the RIGHT inferior frontal gyrus. Area of encephalomalacic in potential surrounding subacute ischemic changes are present. No evidence however of mass, hemorrhage, or acute territorial infarct. 2. No radiographically significant sinus disease.. Electronically Signed: Reid Garcia MD at 20:55 EST , CT scan of the brain was obtained. There is an area of diminished density and loss of francis-white differentiation in the right inferior frontal gyrus. No evidence of acute infarct, mass, or hemorrhage. This was interpreted by the radiologist and was also independently reviewed by myself. Management Discussion w/another healthcare provider: Hospitalist Treatment and Re-Evaluation :: Patient was given IV fluids and Zofran here. Patient was given a dose of Valium. Patient was feeling better on reevaluation. Patient was advised of herfindings. Family states that the patient did have a stroke in the recent past. This would likely account for the CT findings. Patient tempted to ambulate herein the emergency department. Patient was unable to take more than 1 or 2 steps. Patient states she still felt like she was falling to the left. Patient was still complaining of a headache. Patient was given a dose of morphine for this. Case will be discussed with the hospitalist for admission. Admit the patient for observation. Patient and family understood and were agreeable with the plan. All questions were answered. Discharge Plan Dx/Rx/DC Orders Clinical Impression: Dizziness, Inability to walk Disposition Disposition: Acute Care [facility] What to do if you have Problems For any increased pain, shortness of breath, bleeding, nausea or vomiting, chestpain, or any unexpected problems, contact your Primary Care Provider. Call [employer] [facility] ([phone]) or report to the closest Emergency Room. Call 911 if necessary. 06/07/23 0005 <Electronically signed by Mitul Owen DO> Cosigner Signature (if applicable): CC: Dr. Mitul Rutherford MD ~ Signed [facility] Work Phone: 1(197) 281-654607-19-2022 Hospital Discharge instructions Patient Education 02/12/2022 12:59:41 [...] including vitamins, herbs, eye drops, creams, and [id number] medicines. Any problems you or family members [...] 10/03/2004 Document Revised: 01/03/2020 Document Reviewed: 11/04/2016 [employer] Patient Education 2020 Gamar. 02/12/2022 12:57:46 Total Knee Replacement, Care After [...] Follow these instructions at home: Medicines Take brfr-joj-aolckci and prescription medicines only as told by [...] to keep your urine pale yellow. ?Take etiq-vqn-qbfqmsr or prescription medicines. ?Eat foods that are [...] and water are not available, use hand ag service manager. ?Change your dressing as told by your [...] 01/31/2006 Document Revised: 11/22/2019 Document Reviewed: 02/25/2019 [employer] Patient Education 2020 Gamar. Follow Up Care 01/15/2022 07:38:49 With:DISHA GLOVER PA-C, Orthopedic Address: [facility] [address] [place] [address]- When:02/28/2022 [facility] 07-19-2022 Summary of episode note Discharge Instructions Thank you for allowing [facility] to assist you with your healthcare needs. The following is importantdischarge information regarding your hospital visit. Your Care Team MITUL RUTHERFORD MD What to do next Scheduled Follow-Up Appointments Appointment Type When Where Contact InformationCV Procedure - AOH Echo 06/27/2022 09:00 AM EST [facility] CV OV 08/01/2022 10:00 AM [facility] [place] Follow Up Appointments Follow Up with DISHA GLOVER PA-C, Orthopedic When 02/28/2022 03:15 AM EDT Where: [facility] [address] [facility] [address]- The Following Activity and Diet Have Been [...] The extended-release form of oxycodone is for uxbnah-ucd-peayz treatment of pain and should not be [...] against the law. Stop taking all other cipcuy-smm-rugvk opioid pain medicines when you start taking [...] may report side effects to FDA at 3-170-IQO-[phone]. What other drugs will affect oxycodone? You [...] drugs may affect oxycodone. This includes prescription iemoqri-rod-bvuhzzu medicines, vitamins, and herbal products. Not all [...] to ensure that the information provided by Desk. ('[employer]') is accurate, up-to-date, and complete, but no guarantee is made to that effect. Drug information contained herein may be time sensitive. [employer] information has been compiled for use by healthcare practitioners and consumers in the [place] and therefore [employer] does not warrant that uses outside of the [place] are appropriate, unless specifically indicated otherwise. [employer] drug information does not endorse drugs, diagnose patients or recommend therapy. [employer] drug information isan informational resource designed to [...] effective or appropriate for any given patient. [employer] does not assume any responsibility for any aspect of healthcare administered with the aid of information [employer] provides. The information contained herein is not intended to cover all possible uses, directions, precautions, warnings, drug interactions, allergic reactions, or adverse effects. If you have questions about the drugs you are taking, check with your doctor, nurse or pharmacist. Copyright 6487-8520 Desk. Version: 14.02. Revision Date: 08/24/2020. Education Materials [...] including vitamins, herbs, eye drops, creams, and iocp-ohu-yzoayee medicines. Any problems you or family members [...] 10/03/2004 Document Revised: 01/03/2020 Document Reviewed: 11/04/2016 [employer] Patient Education 2020 Gamar. Total Knee Replacement, Care After This sheet [...] Follow these instructions at home: Medicines Take qrrd-qkm-dfzyvft and prescription medicines only as told by [...] keep your urine pale yellow. ? Take uybz-ycx-fjfgwrl or prescription medicines. ? Eat foods that [...] and water are not available, use hand ag service manager. ? Change your dressing as told by [...] 01/31/2006 Document Revised: 11/22/2019 Document Reviewed: 02/25/2019 [employer] Patient Education 2020 [employer]. Additional Information VACCINATE! IT SAVES LIVES! Members of the community who have not yet received the COVID-19 vaccine and would like to receive it can visit one of [facility] vaccine clinics. There are many vaccine clinic locations within the [facility]. For locations and available times, please visit [email or web address] It is important to note that some COVID mobile vaccine clinics are held outdoors and may be canceled in rainy or stormy conditions. To learn more about pediatric vaccinations (ages 5-11), we invite you to visit the [facility] webpage. [email or web address] learn more about the COVID-19 vaccine, we invite you to visit the [facility] website for a list of frequently asked questions. [email or web address] [facility] Patient Portal Access Instructions: Stay connected with your healthcare team and access your personal medical information anytime with the [facility] Patient Portal.If you would like a full copy of your medical records, please contact the [facility] Medical Records Department, Friday through Friday between 8a.m. and 4:30p.m. Please follow the directions below to access the portal: 1.Access the email account you provided upon registration to the hospital.2.Look for an invitation email from [facility].3.Open the email and access the invitation link: Accept Invitation to [facility]4.Fill in the required tristan to create your account. Sign into [email or web address] with your username and password that you [...] you will allow to register on the [facility] Patient Portal for access to your information. You can also access the [facility] Patient Portal on the [employer]. Simply click on Health Records under [employer] and then click on the [facility] logo. HOW TO SAFELY DISPOSE OF PRESCRIPTION [...] Call your local pharmacy or go to [email or web address] to find one close to you.3.Make use of household items: Use cat litter or old coffee grounds to dispose medications if other options arenot available. Mix your drugs with these household products, seal them in an airtight container andthrow it into the garbage. Call [facility]: [phone] to be sure your drugs can be [...] been reviewed and explained to me and IALEXY JANET M understand my current condition and have read and understand these discharge instructions. I have received a written copy of the plan/instructions. If I have questions, I am aware that I should contact my doctor. 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/Baked Goods Stock Clerk Signature: Date/Time: Relationship to Patient: Witness Name/Signature: Date/Time: [facility]07-19-2022 Anesthesiology Consult note Patient: LASHON TRACEY Age: 82 years Sex: Female : 1940 Associated Diagnoses: None Author: HARRIET STEPHENSON APRN-WRAPPER SHEETER Assessment Postanesthesia assessment Vitals: Vital signs from [...] by HARRIET STEPHENSON on 02/12/2022 11:01 AM [facility]07-19-2022 Note ORIGINAL EXAMINATION: KNEE 2 radiographic [...] Sign Date: 02/12/2022 10:06:48 AM Ordering Provider: [address]19-2022 Note ORIGINAL EXAMINATION: KNEE 2 radiographic [...] Sign Date: 02/12/2022 10:06:48 AM Ordering Provider: [address]19-2022 Anesthesiology Consult note Patient: LASHON TRACEY Age: 82 years Sex: Female : 1940 Associated Diagnoses: None Author: HARRIET STEPHENSON Preoperative Information Anesthesia history Patient's history: negative. [...] Medical Basal cell carcinoma / SNOMED CT 9245102 / Confirmed CVA (cerebrovascular accident) / SNOMED CT 614218690 / Confirmed H/O: CVA / SNOMED CT 457543486 / Confirmed Mitral valve stenosis / SNOMED CT 680028816 / Confirmed, Active Problems (5) Arthritis Basal cell carcinoma CVA (cerebrovascular accident) H/O: CVA Mitral valve stenosis Histories Past Medical History: No active or resolved past medical history items have been selected or recorded. Family History: Stroke Mother Sister Procedure history: Echocardiogram ([id number]) on 12/15/2020 at 80 Years. Comments: 03/13/2021 9:47 EDT - Eden Ravi MA (ABR-OE) IMPRESSION : The estimated EF is 60%. severe mitral valve stenosis. Unable to assess diastolic dysfunction. The left atrium is mildly enlarged. Arthroscopy of knee joint ([id number]). Comments: 01/29/2022 10:08 Isabel Jewell RN bilateral Carpal tunnel release ([id number]). Comments: 01/29/2022 10:08 Isabel Jewell RN right Tonsillectomy ([id number]). Social History Social & Psychosocial Habits Alcohol [...] Resp Rate 15 br/min (FEB 12 05:59) [id number] mmHg (FEB 12 05:59) DBP68 mmHg (FEB 12 05:59) Measurements from flowsheet : Measurements 02/12/2022 5:59 EDT Height 155 cm Height in inches 61 inch(es) Admission Weight 78.2 kg Weight Lbs 172 lb [place] Body Weight 47.85 kg Admission Body Mass [...] Surgeon SN - CAt - Role Performed WRAPPER SHEETER SN - CAt - Role Performed Stewardess Supervisor 1 SN - CAt - Role Performed Paramedical Aide 1 SN - CAt - Role Performed Scrub 1 SN - CAt - Role Performed Physician Clock And Watch Hands Painter SN - CAt - Role Performed X-Ray Tech SN - CAt - Role Performed Contingents Supervisor 02/12/2022 6:45 EDT famotidine 20 mg mg Lactated Ringers Injection 1,000 mL mL 02/12/2022 6:28 EDT citric acid-sodium citrate Not Done: Other (Not Done) 02/12/2022 5:59 EDT Height 155 cm Height in inches 61 inch(es) Admission Weight 78.2 kg Weight Lbs 172 lb [place] Body Weight 47.85 kg Admission Body Mass Index 32.55 m2 Temperature Temporal Artery 36.3 DegC Apical Heart Rate 86 bpm Respiratory Rate 15 br/min Systolic Blood Pressure NBP 139 mmHg Diastolic Blood Pressure NBP 68 mmHg Primary Pain Intensity 0 Pain Scale Type 0-10 Pain scale Monitor Alarms On and Limits Checked Nail Bed Color [place] Capillary Refill < 2 seconds Heart Rhythm Regular All Lobes Breath Sounds Clear Oxygen Therapy Room air Oxygen Saturation 98 % Abdomen Description Non-distended Abdomen Palpation Non-Tender Bowel Sounds All Quadrants Present Urinary Elimination Voiding, no difficulties Skin Temperature Warm Skin Description Normal for ethnicity Skin Integrity Intact Mucous Membrane Color [place] IV Present Present Extremity Movement Equal Characteristics [...] Pants, Shoes, Socks, Sweatshirt, Undergarments, Walker, Other: [facility] care Activity Status ADL Awake, Resting Assistive [...] no symptoms Safety Brochure Information Reviewed Yes [facility] Video Viewed No Teaching Evaluation Verbalizes/Nonverbally indicates understanding Admission Note-Nursing Same Day Patient History (Modified) . Assessment and Plan [place] [employer] Anesthesiologists (ASA) physical status classification: Class III. Anesthetic Preoperative Plan Anesthetic technique: Spinal. Regional: Spinal. Postoperative pain management: adductor canal block. Risks discussed: nausea, vomiting, headache, hypotension, allergic reaction, serious complications. Informed consent: signed by patient. Digitally Signed by HARRIET STEPHENSON on 02/12/2022 06:48 AM [facility]07-05-2022 Note ORIGINAL EXAMINATION: CT OF THE [...] Sign Date: 01/29/2022 12:26:30 PM Ordering Provider: [facility]07-05-2022 Note ORIGINAL EXAMINATION: CT OF THE [...] Sign Date: 01/29/2022 12:26:30 PM Ordering Provider: [facility]05-11-2021 Evaluation note* Diagnosis Onset Date Resolution Status Dizziness acute History of TIA (transient ischemic attack) December 05 021 acute Inability to walk acute Severe mitral valve stenosis [facility] Work Phone: 1(699) 689-970905-11-2021 Evaluation note* Diagnosis Onset Date Resolution Status Cerebellar stroke, acute acu te Dizziness acute History of TIA (transient ischemic attack) December 05, 2 021 acute Inability to walk acute Secondary pulmonary arterial hypertension chronic Severe mitral valve stenosis chronic [facility] Work Phone: 1(278) 965-700505-11-2021 Evaluation note* Diagnosis Onset Date Resolution Status Cerebellar stroke, acute acu te Dizziness acute History of TIA (transient ischemic attack) December 05, 2 021 acute Inability to walk acute Secondary pulmonary arterial hypertension chronic Severe mitral valve stenosis chronic Conjunctivitis, right eye ac maycol Acute left-sided weakness ac maycol Acute UTI acute Facial droop acute Inability to walk acute [facility] Work Phone: [phone]) 258-319305-11-2021 Evaluation note* Diagnosis Onset Date Resolution Status Cerebellar stroke, acute acu te Dizziness acute History of TIA (transient ischemic attack) December 05, 2 021 acute Inability to walk acute Secondary pulmonary arterial hypertension chronic Severe mitral valve stenosis chronic Conjunctivitis, right eye ac maycol Acute left-sided weakness ac maycol Acute UTI acute CVA (cerebral vascular accident) acute Facial droop acute Inability to walk acute [facility] Work Phone: Evaluation + Plan note Future Appointments Appointment Date:02/14/2022 08:45:00 AM Scheduled Provider: Location:[facility] Appointment Type:CV OV Appointment Date:06/27/2022 09:00:00 AM Scheduled Provider: Location:RAD Appointment Type:CV Procedure - AOH Echo Appointment Date:08/01/2022 10:00:00 AM Scheduled Provider: Location:[facility] Appointment Type:CV OV [facility] Evaluation + Plan note Future Appointments Appointment Date:06/27/2022 09:00:00 AM Scheduled Provider: Location:RAD Appointment Type:CV Procedure - AOH Echo Appointment Date:08/01/2022 10:00:00 AM Scheduled Provider: Location:[facility] Appointment Type:CV OV [facility] Evaluation + Plan note Future Appointments Appointment Date:04/08/2024 10:00:00 AM Scheduled Provider:NATALI FLYNN PA-C Location:[facility] Appointment Type:CV OV [facility] Evaluation + Plan note Future Appointments Appointment Date:07/22/2024 09:30:00 AM Scheduled Provider: Location:[facility] Appointment Type:CV Incision Check Appointment Date:10/07/2024 11:30:00 AM Scheduled Provider:ELKIN DENG Location:[facility] Appointment Type:CV OV [facility] Evaluation + Plan note Future Appointments Appointment Date:12/01/2024 10:00:00 AM Scheduled Provider: Location:Heart Lab Appointment Type:CV Procedure - Heart Lab/Hybrid OR Appointment Date:01/07/2025 10:00:00 AM Scheduled Provider: Location:[facility] Appointment Type:CV Remote Procedure [facility] [place] Evaluation + Plan note Future Appointments Appointment Date:01/06/2025 09:30:00 AM Scheduled Provider:NATALI FLYNN PA-C Location:[facility] Appointment Type:CV OV Appointment Date:01/07/2025 10:00:00 AM Scheduled Provider: Location:[facility] Appointment Type:CV Remote Procedure [facility] Evaluxcufs noteNo assessment information available [facility] Work Phone: Evaluaktdg note* Diagnosis Cerebellar stroke (HCC)- Primary [facility] Diagnosis Dehydration- Primary Dehydration Yeast vaginitis Fatigue, unspecified type Yeast vaginitis Fatigue Other malaise and fatigue documented in this encounter [facility] Narrative No data available for this section [facility] Hospital Discharge instructions No data available for this section [facility] Progress note No data available for this section [facility] Chief Complaint and Reason for Visit Chief Complaint UNILAT OA LT KN,LT K N STIFFNESS,EFFUSION LT KN/RX Chief Complaint CVA VERSUS TIA WITH FREQUENT FALLS TO THE LEFT Reason for Visit Dizziness History of TIA (transient ischemic attack) Inability to walk Severe mitral valve stenosis Chief Complaint CVA VERSUS TIA WITH FREQUENT FALLS TO THE LEFT CVA VERSUS TIA WITH FREQUENT FALLS TO THE LEFT CVA VERSUS TIA WITH FREQUENT FALLS TO THE LEFT Reason for Visit Cerebellar stroke, a cute Dizziness History of TIA (transient ischemic attack) Inability to walk Secondary pulmonary arterial hypertension Severe mitral valve stenosis Chief Complaint CVA VERSUS TIA WITH FREQUENT FALLS TO THE LEFT CVA VERSUS TIA WITH FREQUENT FALLS TO THE LEFT CVA Cerebrovascular accident RIGHT EYE IRRITATION LEFT SIDED WEAKNESS, UTI Reason for Visit Cerebellar stroke, a cute Dizziness History of TIA (transient ischemic attack) Inability to walk Secondary pulmonary arterial hypertension Severe mitral valve stenosis Conjunctivitis, right eye Acute left-sided weakness Acute UTI Facial droop Inability to walk Chief Complaint CVA VERSUS TIA WITH FREQUENT FALLS TO THE LEFT CVA VERSUS TIA WITH FREQUENT FALLS TO THE LEFT CVA Cerebrovascular accident RIGHT EYE IRRITATION LEFT SIDED WEAKNESS, UTI LEFT SIDED WEAKNESS, UTI CVA RULE OUT CVA RULE OUT CVA RULE OUT CVA RULE OUT CVA RULE OUT Reason for Visit Cerebellar stroke, a cute Dizziness History of TIA (transient ischemic attack) Inability to walk Secondary pulmonary arterial hypertension Severe mitral valve stenosis Conjunctivitis, right eye Acute left-sided weakness Acute UTI CVA (cerebral vascular accident) Facial droop Inability to walk Chief Complaint CVA VERSUS TIA WITH FREQUENT FALLS TO THE LEFT CVA VERSUS TIA WITH FREQUENT FALLS TO THE LEFT CVA Cerebrovascular accident RIGHT EYE IRRITATION LEFT SIDED WEAKNESS, UTI LEFT SIDED WEAKNESS, UTI CVA RULE OUT CVA RULE OUT CVA RULE OUT CVA RULE OUT CVA RULE OUT lateral left distal hand pain traumal, lateral pro Reason for Visit Cerebellar stroke, a cute Dizziness History of TIA (transient ischemic attack) Inability to walk Secondary pulmonary arterial hypertension Severe mitral valve stenosis Conjunctivitis, right eye Acute left-sided weakness Acute UTI Facial droop Inability to walk Advance Directives No Advanced Directives Records Found Advance Directive Response Recorded Date/ Time Living Will No June 06 7:43pm Power of Immigration Attorney No June 06, 2023 7:43pm Advance Directive Response Recorded Date/ Time Name of Medical Power of Immigration Attorney Jose- son June 07, 2023 1:15am Living Will Yes June 07 1:15am Power of Immigration Attorney Yes June 07, 2023 1:15am Latest Code Status on File Code Status Date Activated Date Inactivated Comments DNR-CCA 06/08/2023 5:58 AM 06/11/2023 5:04 PM Question Answer Comments DNR Order Discussed With: Patient State-Approved DNR Identification Code Status History Code Status Date Activated Date Inactivated Comments Full Code 06/07/2023 11:58 PM 06/08/2023 5:58 AM Question Answer Comments Full Code Order Discussed With: Discussion Not Medically Appropriate Advance Directive Response Recorded Date/ Time Name of Medical Power of Immigration Attorney Lily carrillo June 07, 2023 1:15am Name of Medical Power of Immigration Attorney couple of my kids August 14, 2023 9:21am Living Will Yes August 14 9:21am Power of Immigration Attorney Yes August 14, 2023 9:21am Advance Directive Response Recorded Date/ Time Name of Medical Power of Immigration Attorney Lily carrillo June 07, 2023 1:15am Name of Medical Power of Immigration Attorney [place] August 14, 2023 2:32pm Living Will Yes August 14 2:32pm Power of Immigration Attorney Yes August 14, 2023 2:32pm Healthcare Agents on File Name Relationship Healthcare Agent Relationshi p Communication Hong Carrillo Health Care Agent Summary Purpose Family History No Family History Records FoundNo Family History Records FoundNo Family History Records Found No data available for this section No Family History Records FoundNo Family History Records Found No data available for this section No data available for this section No data available for this section No data available for this section No Family History Records FoundNo Family History Records Found Additional Source Comments Goals (unrecognized section and content) Goals may be documented in a n alternate section No data available for this section No data available for this section No data available for this sectionGoals may be documented in an alternate section No data available for this section No data available for this section No data available for this section No data available for this section No data available for this section Care Team (unrecognized sect ion and content) Care Team Personnel Name: MITUL RUTHERFORD MD Member Role: Primary Care Physician Address: Address: [address] [place], [place] [address] Care Team Related Persons Name: ZORA HEBERT Care Team Personnel Name: MITUL RUTHERFORD MD Member Role: Primary Care Physician Address: Address: [address] [place] [address]- [place] Care Team Related Persons Name: ZORA HEBERT Care Team Personnel Name: MITUL RUTHERFORD MD Member Role: Primary Care Physician Address: Address: [facility] [address] [place] [address]- [place] Care Team Related Persons Name: ZORA HEBERT Care Teams (unrecognized sec tion and content) Team Status: Active Member Role Status Dates Dr. Mitul Rutherford MD Family Provider Active Dr. Mitul Rutherford MD Primary Care Provider Active Team Status: Active Member Role Status Dates Dr. Mitul Rutherford MD Primary Care Provider Active Dr. Mitul Owen DO Emergency Provider Active Dr. Russ Rutherford DO Admit Provider, Attending Pr ovider Active Team Status: Active Member Role Status Dates Dr. Mitul Rutherford MD Primary Care Provider Active Dr. Mitul Owen DO Emergency Provider Active Dr. Russ Rutherford DO Admit Provider , Attending Provider, Other Provider Active Team Status: Active Member Role Status Dr. Mitul Rutherford MD Primary Care Provider Active Dr. Uzair Alcantara MD Attending Provider Activ e Team Status: Active Member Role Status Dates Dr. Mitul Rutherford MD Primary Care Provider Active Dr. Mitul Owen DO Emergency Provider Active Dr. Russ Rutherford DO Admit Provider, Other Provid er Active Dr. Cindy Up MD Attending Provider, Other Provid er Active Team Status: Inactive Member Role Status Dates Dr. Mitul Rutherford MD Primary Care Provider Active Dr. Mitul Owen DO Emergency Provider Active Dr. Russ Rutherford DO Admit Provider, Other Provid er Active Dr. Cindy Up MD Attending Provider Active Team Status: Active Member Role Status Dates Dr. Mitul Rutherford MD Primary Care Provider Active Dr. Mitul Owen DO Referring Provider, Emergency P elzbieta Active Dr. Russ Rutherford DO Admit Provider , Attending Provider, Other Provider Active Team Status: Active Member Role Status Dates Dr. Mitul Rutherford MD Primary Care Provider Active Dr. Uzair Alcantara MD Attending Provider Activ e Dr. Russ Rutherford DO Referring Provider Active Team Status: Inactive Member Role Status Tania Miranda PA, PA Attending Provider Active Team Status: Inactive Member Role Status Dates Dr. Mitul Owen , DO Emergency Provider Active Dr. Russ Rutherford , DO Admit Provider, Other Provid er Active Dr. Cindy Up MD Attending Provider Active Team Status: Active Member Role Status Dates Dr. Mitul Rutherford MD Primary Care Provider Active Dr. Princess Bowling , DO Emergency Provider Active Dr. Mukul Franco MD Admit Provider, Attending Provider Active Team Status: Active Member Role Status Dates Dr. Mitul Rutherford MD Primary Care Provider Active Dr. Princess Bowling , DO Emergency Provider Active Dr. Mukul Franco MD Admit Provi cristhian, Attending Provider, Other Provider Active Team Status: Active Member Role Status Dates Dr. Mitul Rutherford MD Primary Care Provider Active Dr. Princess Bowling , DO Emergency Provider Active Dr. Mukul Franco MD Admit Provi cristhian, Attending Provider, Other Provider Active Jorge French MD Other Provider Active Dr. Jamal Webster MD Other Provider Active Swati Lobo MD Other Provider Active Dr. Kathi Alejo , DO Other Provider Active Dr. Clemencia Summers MD Other Provider Active Dr. Devan Zepeda MD Other Provider Active Dr. Azcuena Brantley MD Other Provider Active Dr. Buddy Arellano MD Other Provider Active Dr. Vivek Silverman MD Other Provider Active Yareli Munguia MD Other Provider Active Dr. Holger Wise MD Other Provider Active Dr. Rita Manzano MD Other Provider Active Dr. Glory Norris MD Other Provider Active Dr. Dia Burrows MD Other Provider Active Dr. Dale Steen MD Other Provider Active Dr. Natalee Sandra MD Other Provider Active Dr. Lorenzo Connelly MD Other Provider Active Dr. Nabila Crane MD Other Provider Active Jose Casey MD Other Provider Active Team Status: Active Member Role Status Dates Dr. Mitul Rutherford MD Primary Care Provider Active Dr. Princess Bowling , DO Emergency Provider Active Dr. Mukul Franco MD Admit Provider, Other Pro vider Active Jorge French MD Other Provider Active Dr. Jamal Webster MD Other Provider Active Swati Lobo MD Other Provider Active Dr. Kathi Alejo , DO Other Provider Active Dr. Clemencia Summers MD Other Provider Active Dr. Devan Zepeda MD Other Provider Active Dr. Azucena Brantley MD Other Provider Active Dr. Budyd Arellano MD Other Provider Active Dr. Vivek Silverman MD Other Provider Active Yareli Munguia MD Other Provider Active Dr. Holger Wise MD Other Provider Active Dr. Rita Manzano MD Other Provider Active Dr. Glory Norris MD Other Provider Active Dr. Dia Burrows MD Other Provider Active Dr. Dale Steen MD Other Provider Active Dr. Natalee Sandra MD Other Provider Active Dr. Lorenzo Connelly MD Other Provider Active Dr. Nabila Crane MD Other Provider Active Jose Casey MD Other Provider Active Dr. Richard Mistry MD Attending Provider, Other Provi cristhian Active Team Status: Inactive Member Role Status Dates Dr. Mitul Rutherford MD Primary Care Provider Active Dr. Princess Bowling , Emergency Provider Active Dr. Mukul Franco MD Admit Provider, Other Pro vider Active Jorge French MD Other Provider Active Dr. Jamal Webster MD Other Provider Active Swati Lobo MD Other Provider Active Dr. Kathi Alejo , Other Provider Active Dr. Clemencia Summers MD Other Provider Active Dr. Devan Zepeda MD Other Provider Active Dr. Azucena Brantley MD Other Provider Active Dr. Buddy Arellano MD Other Provider Active Dr. Vivek Silverman MD Other Provider Active Yareli Munguia MD Other Provider Active Dr. Holger Wise MD Other Provider Active Dr. Rita Manzano MD Other Provider Active Dr. Glory Norris MD Other Provider Active Dr. Dia Burrows MD Other Provider Active Dr. Dale Steen MD Other Provider Active Dr. Natalee Sandra MD Other Provider Active Dr. Lorenzo Connelly MD Other Provider Active Dr. Nabila Crane MD Other Provider Active Jose Casey MD Other Provider Active Dr. Richard Mistry MD Attending Provider Active Senior Investment Analyst Relationship Specialty Start Date End Date Mitul Rutherford [address] [place] [address] PCP - General Family Medicine 09/06/23 Team Status: Inactive Member Role Status Dates Dr. Mitul Rutherford MD Primary Care Provide r, Attending Provider, Referring Provider Active Source Comments (unrecognize d section and content) In the event this informatio n is protected by the Federal Confidentiality of Alcohol and Drug Abuse Patient Records regulations: The Federal rules restrict any use of the information to criminally investigate or prosecute any alcohol or drug abuse patient.[facility] the event this information is protected by the Federal Confidentiality of Alcohol and Drug Abuse Patient Records regulations: The Federal rules restrict any use of the information to criminally investigate or prosecute any alcohol or drug abuse patient.[facility] INFORMATION SOURCE (unrecogn ized section and content) DATE CREATED AUTHOR 06/12/2023 [facility] DATE CREATED AUTHOR AUTHOR'S ORGANIZ ATION 06/21/2023 [facility] DATE CREATED AUTHOR AUTHOR'S ORGANIZ ATION 09/08/2023 [facility] DATE CREATED AUTHOR AUTHOR'S ORGANIZ ATION 01/14/2024 [facility] ([place] DATE CREATED AUTHOR AUTHOR'S ORGANIZ ATION 06/02/2024 [facility] DATE CREATED AUTHOR AUTHOR'S ORGANIZ ATION 01/07/2025 [facility] DATE CREATED AUTHOR AUTHOR'S ORGANIZ ATION 01/09/2025 [facility] Reason for Visit (unrecogniz ed section and content) Specialty Diagnoses / Procedures Referred By Alycia anand Referred To Contact [facility] [address] [place] [address] Referral ID Status Reason Start Date Expiration Date V isits Requested Visits Authorized [id number] New Request 06/13/2023 08/12/2023 Reason Comments Urinary Frequency Scheduled Active and Recently Administ ered Medications (unrecognized section and content) Medication Order 09/04/2023 09/05/2023 09/06/2023 fluconazole (Diflucan) tablet 150 mg (COMPLETED) 150 mg, Oral, Once, On 09/06/23 at 0055, For 1 dose, Coverage: Sh[place] albicans, Infection Site: Vaginal 0106 (Given - Provid er: Tabitha Bowles RN) ibuprofen tablet 400 mg (COMPLETED) 400 mg, Oral, Once, On 09/06/23 at 0200, For 1 dose 0201 (Given - Provid er: Tabitha Bowles RN) sodium chloride 0.9 % bolus 500 mL (COMPLETED) 500 mL, IntraVENous, at 500 mL/hr, Administer over 1 Hours, Once, On 09/06/23 at 0055, For 1 dose 0116 (New Bag - Prov ider: Tabitha Bowles RN)0202 (Stopped - Provider: Tabitha Bowles RN) FOR RECORDS PERTAINING TO PATIENTS WHO ARE [...] BE BASED ON THE PRIMARY CLINICAL RECORDS. [employer] provides no warranty or guarantee of the accuracy or completeness of information in this document.
[2025-01-09 20:51] LABS: Absolute Lymphocyte Count 2.16 X10^3/uL (0.83-4.51); Absolute Neutrophil Count 5.1 X10^3/uL (2.0-7.7); Basophil# 0.04 X10^3/uL; Basophil% 0.5 % (0-1); Eosinophil# 0.12 X10^3/uL; Eosinophils% 1.5 % (0-5); Hematocrit 36.4 % (37-47); Lymphocyte # 2.16 X10^3/ul (0.83-4.51); Lymphocyte % 26.5 % (19-41); Mean Corpuscular Hgb 31.4 pg (27.0-32.0); Mean Corpuscular Volume 95.3 fL (81-99); Mean Platelet Vol. 9.7 fl (6.2-12.0); Monocyte# 0.77 X10^3/uL; Monocyte% 9.4 % (0-10); NRBC Flagged by Analyzer 0 % (0-5); Neutrophil # 5.05 X10^3/uL (2.7-7.7); Neutrophil % 61.9 % (47-70); Platelet Count 165 K/mm3 (150-450); RBC Distribution Width CV 13.7 % (11.6-14.6); RBC Distribution Width SD 47.5 fl (35.1-43.9); Red Blood Count 3.82 M/mm3 (4.2-5.4); White Blood Count 8.2 K/mm3 (4.4-11.0)
[2025-01-09 21:02] LABS: International Normalized Ratio 1.3; Prothrombin Time (Protime)PT. 16.1 SECONDS (11.7-14.9)
[2025-01-09 21:03] LABS: Partial Thromboplast Time 34.1 Seconds (24.1-36.2)
[2025-01-09 21:04] VITALS: BP 123/52; PULSE 74; RESP 17; O2SAT 100
--- NOTE | 2025-01-09 21:23 | ED.RN ---
Surgifoam dressing applied to wound. Weight reapplied to area.
[2025-01-09 21:46] LABS: Anion Gap 12 (5-15); BUN 27 mg/dL (4-19); Calcium,Total 9.1 mg/dL (7.6-11.0); Carbon Dioxide 27.4 mmol/L (21.0-32.0); Chloride 104 mmol/L (98-108); Creatinine, Serum 1.07 mg/dL (0.70-1.20); EST Glomerular Filtration Rate 51 (>60); Estimated Creatinine Clearance 35.17 ml/min (50-250); Glucose 94 mg/dL (70-99); Potassium 4.1 mmol/L (3.3-5.1); Sodium Level 143 mmol/L (133-145)
[2025-01-09 22:41] VITALS: BP 125/65; PULSE 69; RESP 17; TEMP 37.1; O2SAT 100
== END 2025-01-09 22:42 | disposition home or self-care (01) ==
PROVIDERS: Emergency Provider Emergency Medicine; PCP Family Medicine; Visit Provider Emergency Medicine
DX: K91.840 Postprocedural hemorrhage of a digestive system organ or structure following a digestive system procedure (principal); I05.0 Rheumatic mitral stenosis; Z79.01 Long term (current) use of anticoagulants; R35.0 Frequency of micturition; R51.9 Headache, unspecified; Z98.890 Other specified postprocedural states
CPT/HCPCS: 80048; 85025; 85610; 85730; 99285; A4216